=== PATIENT | female | born 1965 | race Caucasian/White ===

== ENCOUNTER 2020-12-25 13:03 | Emergency (ER) | payer OTHER, SELFPAY ==
[2020-12-25 13:23] VITALS: BP 155/81; PULSE 88; RESP 14; TEMP 36.4; O2SAT 95; BMI 22.0
[2020-12-25 13:37] VITALS: BP 128/79; PULSE 84; RESP 16; TEMP 36.6
--- NOTE | 2020-12-25 13:45 | HMH.EDUTC ---
[facility] [place] Disposition Clinical Impression: Exposure to COVID-19 virus Disposition: Home, Self-Care Condition on Discharge: Good Instructions: DI for COVID-19 (Suspected or Confirmed ), Preventing the Spread of Coronavirus Discharge Instructions Additional Instructions: Drink plenty of fluids. Take tylenol for pain or fever. Return if you begin to have difficulty breathing. Follow up with your regular doctor. GO TO THE ER FOR ANY WORSENING SYMPTOMS Referrals: Araceli Wiley [Primary Care Provider] - Time of Disposition: 13:45 Medical Decision Making - Medical Records Medical records reviewed: No: I reviewed the patient's medical records. - Adrian Inquiry Pt receiving controlled substance: No Vital Signs: 12/25/20 13:23 12/25/20 13:37 Temperature 97.6 F 97.9 F Temperature Source Tympanic Tympanic Pulse Rate 84 Pulse Rate [Right] 88 Respiratory Rate 14 16 Blood Pressure 128/79 Blood Pressure [Right Arm] 155/81 H Blood Pressure Mean [Right Arm] 105 Blood Pressure Source Automatic Cuff Blood Pressure Source [Right Arm] Automatic Cuff Blood Pressure Position Sitting Blood Pressure Position [Right Arm] Sitting 02 Sat by Pulse Oximetry 95 Oxygen Delivery Method Room Air [facility] [place] HPI - General Stated complaint: cov test Time Seen by Provider: 12/25/20 13:45 Mode of Arrival: Ambulatory Source of Information: Patient Limitations: No Limitations Description of Symptoms (Recalled from Triage Doc. by RN): pt has been traveling. asymptomatic and no known exposure. HEENT Symptoms (Recalled from RN notes): No Resp Symptoms (Recalled from RN notes): No Skin Symptoms (Recalled from RN notes): No MS Symptoms (Recalled from RN notes): No Functional Status (Recalled from RN notes): na - History of Present Illness Provider Complaint: She is here needing to be tested for covid. She denies any symptoms. She has had to travel for her work, and she has a new grand baby that she doesn't want to pack covid-19 in on. - Related Data Home Medications Medication Instructions Recorded Confirmed dapagliflozin 10 mg tablet PO 30 Days #30 tab 09/08/18 09/08/18 fluoxetine 20 mg capsule PO 30 Days #60 cap 09/08/18 09/08/18 insulin glargine 100 unit/mL (3 20 unit SQ DAILY 09/08/18 09/08/18 mL) subcutaneous pen lisinopril 20 mg tablet PO 30 Days #30 tab 09/08/18 09/08/18 Allergies Allergy/AdvReac Type Severity Reaction Status Date / Time codeine Allergy Verified 12/25/20 13:29 Sulfa (Sulfonamide Allergy Verified 12/25/20 13:29 Antibiotics) - Worker's Comp Is this a Worker's Comp case?: No [facility] History - Hepatitis A Screen Drug use history?: No High risk sexual behaviors?: No History of sexually transmitted infection?: No Currently employed?: No Childcare worker?: No Do you have indoor plumbing?: Yes Do you have electricity?: Yes Attestation statement:: This patient has been screened for Hepatitis A risk factors. I have reviewed the patient's past medical history: Yes Medical History: Reports:: Anxiety, Diabetes Mellitus Type 2, Hypertension Other Surgeries: Yes: No Previous Surgery - Social History Smoking Status: Never smoker Alcohol Intake: never Alcohol Intake Frequency:: holidays/special occasions only Occupational Status: other Housing: house Household Members: family - Psychiatric History Pschychiatric History:: Reports:: Anxiety Family Hx:: Diabetes, Hypertension ROS Obtained: Yes All systems reviewed & no additional complaints - Constitutional Constitutional: Reports system reviewed and no additional complaints, except as docu - Eyes Eyes: Reports system reviewed and no additional complaints, except as docu - ENT Ears, Nose, Mouth, and Throat: Reports system reviewed and no additional complaints, except as docu - Cardiovascular Cardiovascular: Reports system reviewed and no additional complaints, except as docu - Respiratory Respiratory: Reports system
== END 2020-12-25 13:52 | disposition home or self-care (01) ==
PROVIDERS: Emergency Provider Nurse Practitioner Family; PCP Family Medicine
DX: Z20.822 Contact with and (suspected) exposure to COVID-19 (principal); I10 Essential (primary) hypertension; E11.9 Type 2 diabetes mellitus without complications; F41.9 Anxiety disorder, unspecified; Z88.2 Allergy status to sulfonamides; Z88.5 Allergy status to narcotic agent
CPT/HCPCS: 99202; G0463; U0003

== ENCOUNTER 2022-02-02 09:35 | Emergency (ER) | payer OTHER, SELFPAY ==
[2022-02-02 09:44] VITALS: BP 155/89; PULSE 94; RESP 20; TEMP 36.8; O2SAT 100; BMI 22.8
[2022-02-02 09:50] VITALS: BP 155/89; PULSE 94; RESP 20; TEMP 36.8; O2SAT 100; BMI 22.7
--- NOTE | 2022-02-02 10:03 | HMH.EDUTC ---
[facility] [place] Clinical Impression: Bronchitis, COVID-19 virus test result unknown Disposition: Home, Self-Care Condition on Discharge: Good Instructions: COVID-19: Testing and Tracing, Acute Bronchitis Additional Instructions: Start antibiotic today. Be sure to complete entire prescription even if feeling better Tylenol and ibuprofen as needed for pain or fever Humidifier/vaporizer/hot steamy shower Follow-up with primary care tomorrow. Follow-up immediately in the ER of the [facility] for new or worsening symptoms or no noticeable improvement over the next 48-72 hours. Stop smoking Start steroids today. Helps with inflammation therefore coughing and wheezing. Follow directions on package. watch glucose close while on steroids Prescriptions: predniSONE [Prednisone 20mg Tab] 20 mg PO BID #10 tab Transmission Status: P[facility] to [facility] Azithromycin [Zithromax 250mg tab] 250 mg PO DIRECTED #6 tab Transmission Status: Pending to [facility] Referrals: Araceli Wiley [Primary Care Provider] - Time of Disposition: 10:17 Medical Decision Making - Adrian Inquiry Pt receiving controlled substance: No Vital Signs: 02/02/22 09:44 02/02/22 09:50 Temperature 98.2 F 98.2 F Temperature Source Oral Oral Pulse Rate [Left Radial] 94 H 94 H Respiratory Rate 20 20 Blood Pressure [Right Arm] 155/89 H 155/89 H Blood Pressure Mean [Right Arm] 111 111 Blood Pressure Source [Right Arm] Automatic Cuff Automatic Cuff Blood Pressure Position [Right Arm] Sitting Sitting 02 Sat by Pulse Oximetry 100 100 Oxygen Delivery Method Room Air Room Air Orders (Tests/Meds): ORDERS Category Date Time Status Covid-19 Nasal PCR ([facility]) Routine Lab 02/02/22 10:07 Ordered [facility] [place] HPI - General Chief complaint: Urgent [facility] Stated complaint: cough, congestion, sore throat, bilateral ear pain Time Seen by Provider: 02/02/22 10:03 Mode of Arrival: Ambulatory Source of Information: Patient Limitations: No Limitations Description of Symptoms (Recalled from Triage Doc. by RN): c/o cough, sore throat, fever for 48 hours. Wants a covid test - History of Present Illness Provider Complaint: 56 yr old female presnets for covid test, pt states horseness, cough, chest congestion, is coughing up sputum but has not looked at it, and sore throat since thurs - Related Data Home Medications Medication Instructions Recorded Confirmed dapagliflozin 10 mg tablet PO 30 Days #30 tab 09/08/18 09/08/18 fluoxetine 20 mg capsule PO 30 Days #60 cap 09/08/18 09/08/18 insulin glargine 100 unit/mL (3 20 unit SQ DAILY 09/08/18 09/08/18 mL) subcutaneous pen lisinopril 20 mg tablet PO 30 Days #30 tab 09/08/18 09/08/18 Previous Rx's Medication Instructions Recorded Azithromycin [Zithromax 250mg 250 mg PO DIRECTED #6 tab 02/02/22 tab] predniSONE [Prednisone 20mg 20 mg PO BID #10 tab 02/02/22 Tab] Allergies Allergy/AdvReac Type Severity Reaction Status Date / Time codeine Allergy Verified 12/25/20 13:29 Sulfa (Sulfonamide Allergy Verified 12/25/20 13:29 Antibiotics) [facility] History - Hepatitis A Screen Attestation statement:: This patient has been screened for Hepatitis A risk factors. I have reviewed the patient's past medical history: Yes Medical History: Reports:: Anxiety, Diabetes Mellitus Type 2, Hypertension Other Surgeries: Yes: No Previous Surgery - Social History Smoking Status: Never smoker Alcohol Intake: never Alcohol Intake Frequency:: holidays/special occasions only Occupational Status: other Housing: house Household Members: family - Psychiatric History Pschychiatric History:: Reports:: Anxiety Family Hx:: Diabetes, Hypertension ROS Obtained: Yes Systems reviewed as appropriate & no additional complaints - Constitutional Constitutional: Reports system reviewed and no additional complaints, except as docu, Denies fatigue, Reports fever(s) - Eyes
[2022-02-02 10:18] VITALS: BP 155/89; PULSE 94; RESP 20; TEMP 36.8; O2SAT 100
== END 2022-02-02 10:24 | disposition home or self-care (01) ==
PROVIDERS: Emergency Provider Nurse Practitioner Family; PCP Family Medicine
DX: J20.9 Acute bronchitis, unspecified (principal); I10 Essential (primary) hypertension; E11.9 Type 2 diabetes mellitus without complications; F41.9 Anxiety disorder, unspecified; Z20.822 Contact with and (suspected) exposure to COVID-19; Z79.4 Long term (current) use of insulin; Z79.52 Long term (current) use of systemic steroids; Z79.899 Other long term (current) drug therapy; Z88.2 Allergy status to sulfonamides; Z88.5 Allergy status to narcotic agent; Z82.49 Family history of ischemic heart disease and other diseases of the circulatory system
CPT/HCPCS: 99213; C9803; G0463; U0003; U0005

== ENCOUNTER 2022-05-14 09:50 | Emergency (ER) | payer OTHER, SELFPAY ==
[2022-05-14 10:05] VITALS: BP 164/99; PULSE 108; RESP 16; TEMP 36.9; O2SAT 97; BMI 27.2
--- NOTE | 2022-05-14 10:27 | HMH.EDUTC ---
[facility] [place] Disposition Clinical Impression: Otitis media Qualifiers: Otitis media type: unspecified Laterality: left Qualified Code(s): H66.92 - Otitis media, unspecified, left ear Disposition: Home, Self-Care Condition on Discharge: Good Instructions: Middle Ear Infection, DI for Otitis Externa Additional Instructions: Use Ear Drops as prescribed and take oral Antibiotics as prescribed Return if needed Straight to ER if any life threatening symptoms Follow up with your Family Doctor if no improvement or any worsening symptoms Prescriptions: Amoxicillin [Amoxicillin 500mg Cap] 500 mg PO TID #30 cap Transmission Status: Pending to [facility] Neomycin/Polymyxin B Sulf/Hc [Rkkgyawd-Pngxcjpdp-UE Otic Susp 10mL] 4 drp OT QID 7 Days #10 ml Transmission Status: Pending to [facility] Referrals: Araceli Wiley [Primary Care Provider] - As needed Time of Disposition: 10:39 Medical Decision Making - Adrian Inquiry Pt receiving controlled substance: No Adrian was queried for this patient: No Vital Signs: 05/14/22 10:05 Temperature 98.5 F Temperature Source Oral Pulse Rate [Left Brachial] 108 H Respiratory Rate 16 Blood Pressure [Left Arm] 164/99 H Blood Pressure Mean [Left Arm] 120 Blood Pressure Source [Left Arm] Automatic Cuff Blood Pressure Position [Left Arm] Sitting 02 Sat by Pulse Oximetry 97 Oxygen Delivery Method Room Air [facility] [place] HPI - General Stated complaint: ear pain Time Seen by Provider: 05/14/22 10:27 Mode of Arrival: Ambulatory Source of Information: Patient Limitations: No Limitations Description of Symptoms (Recalled from Triage Doc. by RN): PATIENT C/O SEVERE LEFT EAR ACHE HEENT Symptoms (Recalled from RN notes): Yes Resp Symptoms (Recalled from RN notes): No Skin Symptoms (Recalled from RN notes): No MS Symptoms (Recalled from RN notes): No Functional Status (Recalled from RN notes): WNL - History of Present Illness Provider Complaint: Patient states that she has been having severe pain in her left ear for about 2 days States it has continued to get worse States that she tried over the counter ear drops but they didnt help so today she came in trying to get something to help - Related Data Home Medications Medication Instructions Recorded Confirmed dapagliflozin 10 mg tablet PO 30 Days #30 tab 09/08/18 09/08/18 fluoxetine 20 mg capsule PO 30 Days #60 cap 10/24/18 10/24/18 insulin glargine 100 unit/mL (3 20 unit SQ DAILY 09/08/18 09/08/18 mL) subcutaneous pen lisinopril 20 mg tablet PO 30 Days #30 tab 09/08/18 09/08/18 Previous Rx's Medication Instructions Recorded Azithromycin [Zithromax 250mg 250 mg PO DIRECTED #6 tab 02/02/22 tab] predniSONE [Prednisone 20mg 20 mg PO BID #10 tab 02/02/22 Tab] Amoxicillin [Amoxicillin 500mg 500 mg PO TID #30 cap 05/14/22 Cap] Neomycin/Polymyxin B Sulf/Hc 4 drp OT QID 7 Days #10 ml 05/14/22 [Dtdqkskx-Izuqpwdal-PF Otic Susp 10mL] Allergies Allergy/AdvReac Type Severity Reaction Status Date / Time codeine Allergy Verified 12/25/20 13:29 Sulfa (Sulfonamide Allergy Verified 12/25/20 13:29 Antibiotics) - Worker's Comp Is this a Worker's Comp case?: No [facility] History - Hepatitis A Screen Attestation statement:: This patient has been screened for Hepatitis A risk factors. I have reviewed the patient's past medical history: Yes Medical History: Reports:: Anxiety, Diabetes Mellitus Type 2, Hypertension Other Surgeries: Yes: No Previous Surgery - Social History Smoking Status: Never smoker Alcohol Intake: never Alcohol Intake Frequency:: holidays/special occasions only Occupational Status: other Housing: house Household Members: family - Psychiatric History Pschychiatric History:: Reports:: Anxiety Family Hx:: Diabetes, Hypertension ROS Obtained: Yes All systems reviewed & no additional complaints, Yes Systems reviewed as appropriate & no additional complaints - Co
[2022-05-14 10:47] VITALS: BP 164/99; PULSE 108; RESP 16; TEMP 36.9; O2SAT 97
== END 2022-05-14 10:50 | disposition home or self-care (01) ==
PROVIDERS: Emergency Provider Nurse Practitioner; PCP Family Medicine
DX: H66.92 Otitis media, unspecified, left ear (principal)
CPT/HCPCS: 99212; G0463

== ENCOUNTER 2022-08-07 09:37 | Emergency (ER) | payer OTHER, SELFPAY ==
--- NOTE | 2022-08-07 09:47 | XR_ITS ---
FINAL REPORT CLINICAL HISTORY: FALL and right lateral foot/ankle pain, and swelling FINDINGS: 3 views of the right foot were obtained. There is no acute fracture or dislocation. The joint spaces are intact. The soft tissues are unremarkable. IMPRESSION: No acute process. Reviewed, Interpreted and Dictated by Ryan Cadena MD Transcribed by Jeferson Mathew Authenticated and [facility]
[2022-08-07 09:48] VITALS: BP 210/102; PULSE 102; RESP 18; TEMP 36.8; O2SAT 98; BMI 21.2
--- NOTE | 2022-08-07 09:48 | XR_ITS ---
FINAL REPORT CLINICAL HISTORY: FALL and right lateral foot/ankle pain, swelling FINDINGS: RIGHT ANKLE: Three views of the right ankle were obtained. There is no acute fracture or dislocation. The joint spaces and mortise are intact. There is mild soft tissue swelling about the ankle. IMPRESSION: Swelling with no acute osseous abnormality. Reviewed, Interpreted and Dictated by Ryan Cadena MD Transcribed by Jeferson Mathew Authenticated and [facility]
[2022-08-07 10:35] VITALS: BP 227/94; PULSE 102; RESP 18; TEMP 36.8; O2SAT 98; BMI 21.2
--- NOTE | 2022-08-07 11:32 | EXP.UTC ---
Discharge Plan Disposition Patient Disposition: Home, Self-Care Condition: Good Prescriptions Prescriptions: No Action lisinopril 20 mg tablet PO 30 Days Qty: 30 Lantus Solostar U-100 Insulin 100 unit/mL (3 mL) insulin pen 20 unit SQ DAILY dapagliflozin 10 mg tablet PO 30 Days Qty: 30 fluoxetine 20 mg capsule PO 30 Days Qty: 60 azithromycin 250 MG tablet 250 mg PO DIRECTED Qty: 6 0RF Rx Instructions: Take two (2) tablets on day #1, then one (1) tablet day #2 thru #5 prednisone 20 MG tablet 20 mg PO BID Qty: 10 0RF amoxicillin 500 MG capsule 500 mg PO TID Qty: 30 0RF llqnbekp-fqbzkqwnx-ZC 10 ML bottle 4 drp OT QID 7 Days Qty: 10 0RF Referrals Follow up/Referrals: Araceli Wiley [Primary Care Provider] - See instructions Activity Restrictions/Add. Instructions Additional Instructions/Restrictions: *weight bearing as tolerated *RICE, Rest the extremity, Ice 15-20 minutes 3-4 times daily, Compress- wear the chris wrap as discussed as much as possible to help reduce swelling and pain, Elevate the extremity when at rest *walking boot is for support and help control swelling, use it except in the shower. Be sure that is not to tight but not to loose either *Elevate when resting? *Ibuprofen 600-800mg every 6-8 hours as needed for pain an inflammation. If need something more can take Tylenol in between doses of Ibuprofen to help Immediately follow up with your family doctor for new or worsening of symptoms, or no noticeable improvement over the next 3-5 days Clinical Impressions Clinical Impression: Ankle sprain Discharge ED Provider: Cayla Dotson [facility] General Stated complaint: [id number] right foot and ankle pain, home acc Mode of Arrival: Ambulatory Source of Information: Patient Limitations: No Limitations Time Seen by Provider: 08/07/22 11:32 Description of Symptoms (Recalled from Triage Doc. by RN): PATIENT C/O INJURY TO RIGHT FOOT/ANKLE. SHE REPORTS SHE STEPPED OFF OF THE EDGE OF SIDEWALK AT A [employer] LAST NIGHT AND TWISTED IT. HEENT Symptoms (Recalled from RN notes): No Resp Symptoms (Recalled from RN notes): No Skin Symptoms (Recalled from RN notes): No MS Symptoms (Recalled from RN notes): Yes Functional Status (Recalled from RN notes): WNL History of Present Illness Provider Complaint: Patient states that she was stepping off edge of side walk and rolled her right ankle States that she felt something pop States that she has been having pain with walking ever since States that her blood pressure is up because she didnt get to roller picker her medication yesterday from the pharmacy but plans to go get it when she leaves here today Related Data Home Medications Medication Instructions Recorded Confirmed dapagliflozin 10 mg tablet PO 30 days #30 tabs 09/08/18 09/08/18 fluoxetine 20 mg capsule PO 30 days #60 caps 09/08/18 09/08/18 insulin glargine 100 unit/mL (3 20 unit SQ DAILY 09/08/18 09/08/18 mL) subcutaneous pen (Lantus Solostar U-100 Insulin) lisinopril 20 mg tablet PO 30 days #30 tabs 09/08/18 09/08/18 Previous Rx's Medication Instructions Recorded azithromycin 250 mg tablet 250 mg PO DIRECTED #6 tabs 02/02/22 prednisone 20 mg tablet 20 mg PO BID #10 tabs 02/02/22 amoxicillin 500 mg capsule 500 mg PO TID #30 caps 05/14/22 hjjacimo-xjiznpavd-oxkghfpgm 3.5 4 drp otic (ear) QID 7 days #10 mL 05/14/22 mg-10,000 unit/mL-1 % ear drops,susp Allergies Allergy/AdvReac Type Severity Reaction Status Date / Time codeine Allergy Verified 12/25/20 13:29 Sulfa (Sulfonamide Allergy Verified 12/25/20 13:29 Antibiotics) Worker's Comp Is this a Worker's Comp case?: No PFSH PFS Medical History (Updated 08/07/22 @ 11:42 by Cayla Dotson APRN) Anxiety Diabetes mellitus, type 2 Hypertension Surgical History (Updated 08/07/22 @ 10:46 by Caterina Parada RN) History of abdominoplasty History o
[2022-08-07 11:34] VITALS: BP 189/98; PULSE 102; RESP 18; TEMP 36.8; O2SAT 98
== END 2022-08-07 11:52 | disposition home or self-care (01) ==
PROVIDERS: Emergency Provider Nurse Practitioner; PCP Family Medicine
DX: W10.1XXA Fall (on)(from) sidewalk curb, initial encounter (principal); S93.401A Sprain of unspecified ligament of right ankle, initial encounter; F41.9 Anxiety disorder, unspecified; E11.9 Type 2 diabetes mellitus without complications; I10 Essential (primary) hypertension
CPT/HCPCS: 73610; 73630; 99213; G0463

== ENCOUNTER 2025-09-13 23:53 | Inpatient (IN) | payer OTHER, SELFPAY ==
--- OUTSIDE RECORDS SUMMARY | 2025-07-26 17:49 | XMS_ITS | Encounter Summary ---
Author Organization [facility] Address [address] [place] [address] Care Team Providers Care Chief Fishery Division Name Role Phone Araceli Doyle MD Primary Care Provider [phone] Reason for Referral * Consultation (Routine) - Authorized Specialty Diagnoses / Procedures Referred By Contac t Referred To Contact Neurology Diagnoses Syncope and collapse Transient ischemic attack (TIA) Procedures AL OFFICE/OUTPATIENT NEW MODERATE MDM 45 MINUTES Michelle Moon MD [address] [facility] 4th [place] [address] Phone: tel: fax: [facility] [address] [facility] [address] [place] [address] Phone: tel: fax: Referral ID Status Reason Start Date Expiration Date Visits Requested Visits Authorized [id number] Authorized Specialty Services Required 07/27/2025 10/26/2026 1 1 Reason for Visit * Reason Comments Syncope * Auth/Cert (Routine) Specialty Diagnoses / Procedures Referred By Contac t Referred To Contact Diagnoses Facial droop Referral ID Status Reason Start Date Expiration Date Visits Re quested Visits Authorized [id number] 1 1 Encounter Details Date Type Department Care Team (Late st Contact Info) Description 07/26/2025 5:49 PM EDT - 07/27/2025 2:28 PM EDT Hospital Encounter [address] [facility] [place] [id number] Heron Whatley DO [address] [facility] [place] [address] Michael Cano MD [address] [facility] [address]th [place] [address] Shereen Miguel MD [address] [facility] [address] [place] [id number] Michelle Moon MD [address] [facility] 4th [address] [place], [place] [id number] Syncope and collapse (Primary Dx); Fall down stairs, initial encounter; Stenosis of both internal carotid arteries; Hyperglycemia; Ketonuria; Renal insufficiency; Elevated troponin; Transient ischemic attack (TIA) Discharge Disposition: Home or Self Care Social History Tobacco Use Types Packs/Day Years Used Date Smoking Tobacco: Never Passive Smoke Exposure: Past Smokeless Tobacco: Never Alcohol Use Standard Drinks/Week Comments Never 0 (1 standard drink = 0.6 oz pur e alcohol) [facility] Utilities Answer Date Recorded In the past 12 months has [place], gas, oil, or water [employer] threatened to shut off services in your home? No 07/27/2025 AUDIT-C Answer Date Recorded Q1: How often do you have a drink containing alcohol? Never 07/27/2025 Q2: How many drinks containi ng alcohol do you have on a typical day when you are drinking? Patient does not drink Q3: How often do you have si x or more drinks on one occasion? Never 07/27/2025 Exercise Vital Sign Answer Date Recorde d Days of Exercise per Week Not on file 2024 On average, how many minutes do you engage in exercise at this level? 0 min 07/27/2025 Hunger Vital Sign Answer Date Recorded Within the past 12 months, y ou worried that your food would run out before you got the money to buy more. Never true 07/27/20 25 Within the past 12 months, t he food you bought just didn't last and you didn't have money to get more. Never true 07/27/2025 PRAPARE - Transportation Answer Date Re corded In the past 12 months, has l ack of transportation kept you from medical appointments or from getting medications? No 07/17 In the past 12 months, has l ack of transportation kept you from meetings, work, or from getting things needed for daily living? No 07/27/2025 Abuse Screen Answer Date Recorded Feels Unsafe at Home or Work/School no 07/26/2025 Feels Threatened by Someone no 07/17 Does Anyone Try to Keep You From Having Contact with Others or Doing Things Outside Your Home? no 07/26/2025 Physical Signs of Abuse Present no 07/26/2025 Housing Stability Answer Date Recorded Current Living Arrangements home 07/17 Potentially Unsafe Housing Conditions none 07/27/2025 Family and Community Support Answer Zechariah e Recorded If for any reason you need h elp with day-to-day activities such as bathing, preparing meals, shopping, managing finances, etc., do you get the help you need? I get all the help I need 07/27/2025 Lonely or Isolated Not on file 07/27/2025 Employment Answer Date Recorded Do you want help finding or keeping work or a job? I do not need or want help 07/27/2025 Disabilities Answer Date Recorded Difficulty Concentrating, Remembering or Making Decisions no 07/27/2025 Difficulty Managing Errands Independently no 07/27/2025 Education Answer Date Recorded Do you want help with school or training? For example, starting or completing job training or getting a high school diploma, GED or equivalent No 07/27/2025 Preferred Language Syrian 07/27/2025 Comments Unknown Sex and Gender Information Value Date Recorded Sex Assigned at Not on file Legal Sex Female 10:07 AM EDT Gender Identity Not on file Sexual Orientation Not on file documented as of this encounter Last Filed Vital Signs Vital Sign Reading Time Taken Comments Blood Pressure 133/82 07/27/2025 11:29 AM EDT Pulse 100 07/27/2025 11:29 AM EDT Temperature 36.7 C (98.1 F) 07/27/2025 11:29 AM EDT Respiratory Rate 16 07/27/2025 11:29 AM EDT Oxygen Saturation 99% 07/27/2025 11:29 AM EDT Inhaled Oxygen Concentration - - Weight 76.2 kg (168 lb) 07/27/2025 10:48 AM EDT Height 167.6 cm (5' 6 ) 07/27/2025 10:48 AM EDT Body Mass Index 27.12 07/27/2025 10:48 AM EDT documented in this encounter Functional Status * Question Answer Date of Assessment Author 1. Wish to be (Past 1 Month) No 025 11:35 PM EDT Gage Cox RN 2. Non-Specific Active Suici susi Thoughts (Past 1 Month) No 07/26/2025 11:35 PM EDT Jessica Cox RN * Calculated C-SSRS Risk Score (Lifetime/Recent) Answer Date of Assessment Author No Risk Indicated 07/26/2025 11:35 PM EDT Gage Cox RN * [place] Suicide Severity Rating Scale (Screener/Recent Self-Report) Question Answer Date of Assessment Author 6. Suicidal Behavior (Lifetime) No 11:35 PM EDT Gage Cox RN documented as of this encounter Discharge Summaries * Michelle Moon MD - 07/27/2025 2:28 PM EDT Images from the original note were not included. [facility] Medicine Services DISCHARGE SUMMARY Patient Name: Brynn Cox : 1965 Date of Admission: 07/26/2025 5:49 PM Date of Discharge: 07/27/2025 Primary Care Physician: Araceli Doyle MD Consults No orders found for last 30 day(s). Hospital Course Presenting Problem: TIA Active Hospital Problems Diagnosis POA Facial droop [R29.810] Yes Transient ischemic attack (TIA) [G45.9] Yes Resolved Hospital Problems No resolved problems to display. Hospital Course: Brynn Cox is a 60 y.o. female with HTN, HLD, DM-II who was admitted after episode of transient impaired awareness, expressive aphasia, right sided facial droop noted by EMS, and global weakness. CT head negative for acute findings. CTA with left supraclinoid ICA occlusion but with collateral flow. MRI brain did not show acute infarct. Neurology consulted, episode was concerning for TIA. Patient is started on DAPT which she is to continue for 90 days. Bilateral carotid ultrasound without significant stenosis. TTE notable for hypertrophic changes, no evidence of shunt. No evidence of Afibon telemetry. 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 Patient discharged in stable condition. Counseled to avoid driving for 30 days. Discharge Follow Up Recommendations for outpatient labs/diagnostics: - follow up with neurology in 4-6wks - follow up with PCP regarding transaminitis in the setting of known fatty liver disease Day of Discharge HPI: Pt is feeling back to baseline. She denies focal weakness, dysarthria or dysphagia. Review of Systems Negative except as noted above. Vital Signs: Temp: [97.9 ??F (36.6 ??C)-98.1 ??F (36.7 ??C)] 98.1 ??F (36.7 ??C) Heart Rate: [93-122] 100 Resp: [16-20] 16 BP: (118-203)/(54-136) 133/82 Physical Exam: Physical Exam Constitutional: General: She is not in acute distress. Appearance: Normal appearance. HENT: Head: Normocephalic and atraumatic. Eyes: General: No scleral icterus. Extraocular Movements: Extraocular movements intact. Cardiovascular: Rate and Rhythm: Normal rate and regular rhythm. Heart sounds: No murmur heard. Pulmonary: Effort: Pulmonary effort is normal. Breath sounds: Normal breath sounds. Abdominal: Palpations: Abdomen is soft. Tenderness: There is no abdominal tenderness. Musculoskeletal: Right lower leg: No edema. Left lower leg: No edema. Neurological: Mental Status: She is alert and oriented to person, place, and time. Cranial Nerves: No cranial nerve deficit. Motor: No weakness. Pertinent and/or Most Recent Results LAB RESULTS: Lab 07/27/25 0902 07/26/25 1813 WBC 11.73* 7.98 HEMOGLOBIN 11.9* 12.2 HEMATOCRIT 37.3 36.2 PLATELETS 193 218 NEUTROS ABS 8.97* 5.47 IMMATURE GRANS (ABS) 0.05 0.04 LYMPHS ABS 1.70 2.01 MONOS ABS 0.99* 0.45 EOS ABS 0.00 0.00 MCV 99.5* 91.0 Lab 07/27/25 0902 07/26/25200507/26/25 1813 SODIUM 138 -- 136 POTASSIUM 3.8 -- 4.2 CHLORIDE 104 -- 100 CO2 20.1* -- 25.0 ANION GAP 13.9 -- 11.0 BUN 17.2 -- 21.8 CREATININE 0.88 -- 1.02* EGFR 74.4 -- 62.3 GLUCOSE 78 -- 236* CALCIUM 8.7 -- 9.2 MAGNESIUM -- -- 2.2 HEMOGLOBIN A1C 6.91* -- -- TSH -- 2.090 -- Lab 07/27/2590107/26/25 1813 TOTAL PROTEIN 6.1 6.8 ALBUMIN 3.5 4.2 GLOBULIN 2.6 2.6 ALT (SGPT) 237* 133* AST (SGOT) 127* 74* BILIRUBIN 0.8 0.4 ALK PHOS 123* 157* Lab 07/27/25 0907/26/25200507/26/25 1813 HSTROP T 27* 20* 20* Lab 07/27/25 09 CHOLESTEROL 133 LDL CHOL 82 HDL CHOL 30* TRIGLYCERIDES 114 Brief Urine Lab Results (Last result in the past 365 days) Color Clarity Blood Leuk Est Nitrite Protein CREAT Urine HCG 07/26/25 1827 Dark Yellow Clear Negative Small (1+) Negative >=300 mg/dL (3+) Microbiology Results (last 10 days) No results found for the last 240 hours. Duplex Carotid Ultrasound CAR Result Date: 07/27/2025 Right internal carotid artery demonstrates normal flow without evidence of hemodynamically significant stenosis. Antegrade right vertebral flow. Left internal carotid artery demonstrates normal flow without evidence of hemodynamically significant stenosis. Antegrade left vertebral flow. MRI Brain Without Contrast Result Date: 07/26/2025 MRI BRAIN WO CONTRAST Date of Exam: 07/26/2025 10:34 PM EDT Indication: rfd, speech difficulty. Comparison: 07/26/2025. Technique: Routine multiplanar/multisequence sequence images of the brain were obtained without contrast administration. Findings: Small patchy areas of diffusion restriction are seen within the subcortical white matter of the left frontal and parietal lobes. There is very minimalif any corresponding decreased signal on the ADC map. Patchy areas of FLAIR signal changes are seencorresponding to these regions. No additional FLAIR signal changes identified. No additional diffusion signal abnormalities identified. There is no evidence of acute or chronic intracranial hemorrhage. No mass effect or midline shift. No abnormal extra- axial collections. The major vascular flow voids appear intact. The basal ganglia, brainstem and cerebellum appear within normal limits. Calvarialand superficial soft tissue signal is within normal limits. Orbits appear unremarkable. The paranasal sinuses and the mastoid air cells appear well aerated. Midline structures are intact. Impression: Small patchy areas of diffusion restriction seen within the subcortical white matter ofthe left frontal and parietal lobes with very minimal if any corresponding decreased signal on the ADC map. Findings likely related to subacute infarcts or the sequela of previous infarcts. No evidence of hemorrhage, mass effect or midline shift. Electronically Signed: Lucila Elliott MD 07/26/2025 11:08 PM EDT Workstation ID: [id number] CT CEREBRAL PERFUSION WITH & WITHOUT CONTRAST Result Date: 07/26/2025 CT CEREBRAL PERFUSION W WO CONTRAST Date of Exam: 07/26/2025 8:37 PM EDT Indication: rfd, speech difficulties. Comparison: None available. Technique: Axial CT images of the brain were obtained prior to and after the administration of iodinated contrast. Core blood volume, core blood flow, mean transit time, and Tmax images were obtained utilizing the Rapid software protocol. A limited CT angiogramof the head was also performed to measure the blood vessel density. The radiation dose reduction device was turned on for each scan per the ALARA (As Low as Reasonably Achievable) protocol. Findings:There is an area of elevated Tmax greater than 6 seconds within the left MCA territory white matter extending to the parietal cortex consistent with an area of ischemic brain at risk. No decrease in cerebral blood flow to suggest core infarction. CBF<30% volume: 0mL Tmax>6sec volume: 22 mL Mismatch volume: 22 mL Mismatch ratio: Infinite 1. Area of suggested ischemic brain at risk involving the left MCA territory without core infarction. Electronically Signed: Saturnino Macdonald MD 07/26/2025 9:07 PM EDT Workstation ID: [id number] Result Date: 07/26/2025 CT ANGIOGRAM HEAD, CT ANGIOGRAM NECK Date of Exam: 07/26/2025 7:11 PM EDT Indication: facial droop, speech disturbance, syncope. Comparison: None available. Technique: CTA of the head was performed after the uneventful intravenous administration of iodinated contrast. Reconstructed coronal and sagittal images were also obtained. In addition, a 3-D volume rendered image was created for interpretation. Automated exposure control and iterative reconstruction methods were used. Findings: Aortic arch: The aortic arch is unremarkable. There is conventional 3 vessel arch anatomy. The right brachioceph alic and visualized bilateral subclavian arteries are within normal limits. Right carotid: The right CCA arises as expected from the brachiocephalic trunk. The CCA follows a normal course and appearsnormal caliber. Very small calcified plaque is visualized in the right carotid bifurcation without evidence of luminal narrowing. The external carotid artery and distal branches appear within normal limits. The cervical internal carotid artery follows a normal course and appears normal caliber throughout the neck and into the head. Calcified plaque in the supraclinoid right internal carotid artery causes high-grade stenosis. There are additional calcified plaques proximally in the cavernous segment causing mild to moderate stenosis. The ophthalmic artery origin is normal. The A1 and M1 segments appear within normal limits. The visualized distal JERMAINE and MCA branches appear patent. There is apatent anterior communicating artery. Right posterior communicating artery is not visualized. Left carotid: The left CCA arises as expected from the aortic arch. The CCA follows a normal course and appears normal caliber. The carotid bifurcation is unremarkable. The external carotid artery and distal branches appear within normal limits. The cervical internal carotid artery follows a normal course and appears normal caliber throughout the neck and into the head. Extensive mixed density plaque is visualized in the cavernous and supraclinoid left internal carotid artery. There is occlusion of the supraclinoid left internal carotid artery and minimal opacification of the cavernous and petrous segments. Origin of the left ophthalmic artery is not visualized. The A1 and M1 segments appear within normal limits. The visualized distal JERMAINE and MCA branches appear patent. Left posterior communicating artery is not visualized. Posterior circulation: Vertebral arteries arise as expected from ipsilateral subclavian arteries. The vertebral arteries are codominant. The vertebral arteries follow a normal course and appear normal caliber throughout the neck and into the head. The V4 segments are patent. Visualized posterior inferior cerebellar arteries are within normal limits. The basilar artery is normal caliber. Superior cerebellar arteries are patent. Bilateral P1 segments and posterior cerebral arteries appear within normal limits. Nonvascular findings: Intracranial structures appear unr emarkable. Orbits are within normal limits. Paranasal sinuses and mastoid air cells appear well aerated. Superficial soft tissues and underlying musculature appear within normal limits. The lung apices are clear. The thyroid and salivary glands appear unremarkable. The suprahyoid and infrahyoid spaces of the neck appear unremarkable. There is no evidence of cervical lymphadenopathy or a neck mass. There are no acute osseous abnormalities or destructive bone lesions. Moderate degenerative disease at C5-C6 and C6-C7 is visualized. Impression: 1.Occlusion of the supraclinoid left internal carotid artery with minimal opacificationof the cavernous and petrous segments. Left anterior cerebral and middle cerebral arteries are supplied by a patent anterior communicating artery. 2.High-grade stenosis of the supraclinoid right internal carotid artery. 3.No evidence of intracranial aneurysm. Electronically Signed: Guille Miller MD 07/26/2025 7:59 PM EDT Workstation ID: [id number] CT Angiogram Neck Result Date: 07/26/2025 CT ANGIOGRAM HEAD, CT ANGIOGRAM NECK Date of Exam: 07/26/2025 7:11 PM EDT Indication: facial droop, speech disturbance, syncope. Comparison: None available. Technique: CTA of the head was performed after the uneventful intravenous administration of iodinated contrast. Reconstructed coronal and sagittal images were also obtained. In addition, a 3-D volume rendered image was created for interpretation. Automated exposure control and iterative reconstruction methods were used. Findings: Aortic arch: The aortic arch is unremarkable. There is conventional 3 vessel arch anatomy. The right brachioceph alic and visualized bilateral subclavian arteries are within normal limits. Right carotid: The right CCA arises as expected from the brachiocephalic trunk. The CCA follows a normal course and appearsnormal caliber. Very small calcified plaque is visualized in the right carotid bifurcation without evidence of luminal narrowing. The external carotid artery and distal branches appear within normal limits. The cervical internal carotid artery follows a normal course and appears normal caliber throughout the neck and into the head. Calcified plaque in the supraclinoid right internal carotid artery causes high-grade stenosis. There are additional calcified plaques proximally in the cavernous segment causing mild to moderate stenosis. The ophthalmic artery origin is normal. The A1 and M1 segments appear within normal limits. The visualized distal JERMAINE and MCA branches appear patent. There is apatent anterior communicating artery. Right posterior communicating artery is not visualized. Left carotid: The left CCA arises as expected from the aortic arch. The CCA follows a normal course and appears normal caliber. The carotid bifurcation is unremarkable. The external carotid artery and distal branches appear within normal limits. The cervical internal carotid artery follows a normal course and appears normal caliber throughout the neck and into the head. Extensive mixed density plaque is visualized in the cavernous and supraclinoid left internal carotid artery. There is occlusion of the supraclinoid left internal carotid artery and minimal opacification of the cavernous and petrous segments. Origin of the left ophthalmic artery is not visualized. The A1 and M1 segments appear within normal limits. The visualized distal JERMAINE and MCA branches appear patent. Left posterior communicating artery is not visualized. Posterior circulation: Vertebral arteries arise as expected from ipsilateral subclavian arteries. The vertebral arteries are codominant. The vertebral arteries follow a normal course and appear normal caliber throughout the neck and into the head. The V4 segments are patent. Visualized posterior inferior cerebellar arteries are within normal limits. The basilar artery is normal caliber. Superior cerebellar arteries are patent. Bilateral P1 segments and posterior cerebral arteries appear within normal limits. Nonvascular findings: Intracranial structures appear unr emarkable. Orbits are within normal limits. Paranasal sinuses and mastoid air cells appear well aerated. Superficial soft tissues and underlying musculature appear within normal limits. The lung apices are clear. The thyroid and salivary glands appear unremarkable. The suprahyoid and infrahyoid spaces of the neck appear unremarkable. There is no evidence of cervical lymphadenopathy or a neck mass. There are no acute osseous abnormalities or destructive bone lesions. Moderate degenerative disease at C5-C6 and C6-C7 is visualized. Impression: 1.Occlusion of the supraclinoid left internal carotid artery with minimal opacificationof the cavernous and petrous segments. Left anterior cerebral and middle cerebral arteries are supplied by a patent anterior communicating artery. 2.High-grade stenosis of the supraclinoid right internal carotid artery. 3.No evidence of intracranial aneurysm. Electronically Signed: Guille Miller MD 07/26/2025 7:59 PM EDT Workstation ID: [id number] CT Head Without Contrast Result Date: 07/26/2025 CT HEAD WO CONTRAST Date of Exam: 07/26/2025 7:11 PM EDT Indication: Fall, head injury. Comparison: None available. Technique: Axial CT images were obtained of the head without contrast administration. Automated exposure control and iterative construction methods were used. Findings: There is no evidence of acute territorial infarction. There is no acute intracranial hemorrhage. There are no extra-axial collections. Ventricles and CSF spaces are symmetric. No mass effect nor hydrocephalus. Brainparenchyma appears normal for age. Paranasal sinuses and mastoid air cells are adequately aerated. Osseous structures and orbits appear intact. Impression: No acute intracranial findings. Electronically Signed: Saturnino Macdonald MD 07/26/2025 7:48 PM EDT Workstation ID: [id number] Results for orders placed during the hospital encounter of 07/26/25 Duplex Carotid Ultrasound CAR 07/27/2025 12:13 PM Interpretation Summary Right internal carotid artery demonstrates normal flow without evidence of hemodynamically significant stenosis. Antegrade right vertebral flow. Left internal carotid artery demonstrates normal flow without evidence of hemodynamically significant stenosis. Antegrade left vertebral flow. Results for orders placed during the hospital encounter of 07/26/25 Duplex Carotid Ultrasound CAR 07/27/2025 12:13 PM Interpretation Summary Right internal carotid artery demonstrates normal flow without evidence of hemodynamically significant stenosis. Antegrade right vertebral flow. Left internal carotid artery demonstrates normal flow without evidence of hemodynamically significant stenosis. Antegrade left vertebral flow. Results for orders placed during the hospital encounter of 07/26/25 Adult Transthoracic Echo Complete W/ Cont if Necessary Per Protocol (With Agitated Saline) 07/27/2025 12:17 PM Interpretation Summary Left ventricular ejection fraction appears to be 56 - 60%. Left ventricular wall thickness is consistent with hypertrophy. Saline test results are negative. I have personally reviewed the therapy plans: [x] PT/OT/ ST Therapy Plans Plan for Follow-up of Pending Labs/Results: Discharge Details Discharge Medications New Medications Instructions Start Date aspirin 81 MG chewable tablet 81 mg, Oral, Daily Start Date: July 28, 2025 clopidogrel 75 MG tablet Commonly known as: PLAVIX 75 mg, Oral, Daily Start Date: July 28, 2025 Changes to Medications Instructions Start Date BASAGLAR KWIKPEN 100 UNIT/ML injection pen What changed: how much to take additional instructions 48 Units, Subcutaneous, Daily carvedilol 25 MG tablet Commonly known as: COREG What changed: additional instructions 1 tablet, Every 12 Hours Scheduled Continue These Medications Instructions Start Date atorvastatin 80 MG tablet Commonly known as: LIPITOR 1 tablet, Daily estradiol 10 MCG tablet vaginal tablet Commonly known as: VAGIFEM 1 tablet, 2 Times Weekly FreeStyle Jovita 3 Plus Sensor Use as directed every 15 days FreeStyle Jovita 3 Sensor misc 1 each, Subcutaneous, Every 14 Days lisinopril 10 MG tablet Commonly known as: PRINIVIL,ZESTRIL 1 tablet, Daily Mounjaro 7.5 MG/0.5ML solution auto-injector Generic drug: Tirzepatide 7.5 mg, Subcutaneous, Weekly venlafaxine XR 75 MG 24 hr capsule Commonly known as: EFFEXOR-XR 75 mg, Daily Allergies Allergen Reactions Codeine GI Intolerance Vomiting Sulfa Antibiotics GI Intolerance vomiting Discharge Disposition: Home or Self Care Diet: Hospital: Diet Order Procedures Diet: Cardiac, Diabetic; Healthy Heart (2-3 Na+); Consistent Carbohydrate; Fluid Consistency: Thin (IDDSI 0) Standing Status: Standing Number of Occurrences: 1 Diets:: Cardiac Diets:: Diabetic Cardiac Diet:: Healthy Heart (2-3 Na+) Diabetic Diet:: Consistent Carbohydrate Fluid Consistency:: Thin (IDDSI 0) Activity: As tolerated Restrictions or Other Recommendations: No driving for 30 days CODE STATUS: Code Status and Medical Interventions: CPR (Attempt to Resuscitate); Full Support Ordered at: 07/27/25 0024 Code Status (Patient has no pulse and is not breathing): CPR (Attempt to Resuscitate) Medical Interventions (Patient has pulse or is breathing): Full Support Level Of Support Discussed With: Patient Future Appointments Date Time Provider Department Center 08/22/2025 8:15 AM Katrina Garrett MD [facility] 09/05/2025 11:30 AM [facility] Additional Instructions for the Follow-ups that You Need to Schedule Ambulatory Referral to Neurology As directed Michelle Moon MD 07/27/25 Time Spent on Discharge: I spent 35 minutes on this discharge activity which included: [id number] with the patient, reviewing the data in the system, coordination of the care with the nursing staff as well as consultants, documentation, and entering orders. * Radha Fitch PT - 07/27/2025 9:10 AM EDT Images from the original note were not included. Patient Name: Brynn Cox : 1965 Today's Date: 07/27/2025 Admit Date: 07/26/2025 Visit Dx: ICD-10-CM ICD-9-CM 1. Syncope and collapse R55 780.2 2. Fall down stairs, initial encounter W10.8XXA E880.9 3. Stenosis of both internal carotid arteries I65.23 433.10 433.30 4. Hyperglycemia R73.9 790.29 5. Ketonuria R82.4 791.6 6. Renal insufficiency N28.9 593.9 7. Elevated troponin R79.89 790.6 Patient Active Problem List Diagnosis Diabetes type 2, uncontrolled Type 2 diabetes mellitus with hyperlipidemia Breast implant rupture Breast implant status Calculus of gallbladder without cholecystitis without obstruction Elevated LFTs Episode of recurrent major depressive disorder Essential hypertension Menopausal hot flushes Microalbuminuric diabetic nephropathy Mixed hyperlipidemia Toenail fungus Type 2 diabetes mellitus with hyperglycemia Vitamin D deficiency Insomnia Hypersomnia Fatigue Family history of early CAD Facial droop Past Medical History: Diagnosis Date Otitis media 04/20/2024 Past Surgical History: Procedure Laterality Date BREAST AUGMENTATION CHOLECYSTECTOMY TUBAL ABDOMINAL LIGATION General Information Row Name 07/27/2542 Physical Therapy Time and Intention Document Type discharge evaluation/summary -KR Mode of Treatment physical therapy;co-treatment -KR Row Name 07/27/25941 General Information Patient Profile Reviewed yes -KR Prior Level of Function independent:;all household mobility;community mobility;ADL's;driving;work;using stairs -KR Existing Precautions/Restrictions no known precautions/restrictions -KR Barriers to Rehab none identified -KR Row Name 07/27/25941 Living Environment Current Living Arrangements home -KR People in Home spouse -KR Row Name 07/27/25941 Home Main Entrance Number of Stairs, Main Entrance three -KR Stair Railings, Main Entrance railing on right side (ascending) -KR Row Name 07/27/25941 Stairs Within Home, Primary Number of Stairs, Within Home, Primary none -KR Row Name 07/27/25941 Cognition Orientation Status (Cognition) oriented x 4 -KR User Diane (r) = Recorded By, (t) = Taken By, (c) = Cosigned By Initials Name Provider Type Radha Zuluaga PT Physical Therapist Mobility Row Name 07/27/25942 Sit-Stand Transfer Sit-Stand Barnum (Transfers) independent -KR Row Name 07/27/25942 Gait/Stairs (Locomotion) Barnum Level (Gait) independent -KR Distance in Feet (Gait) 240 -KR Barnum Level (Stairs) supervision -KR Handrail Location (Stairs) none -KR Number of Steps (Stairs) 3 -KR Ascending Technique (Stairs) [id number] -KR Descending Technique (Stairs) [id number] -KR User Diane (r) = Recorded By, (t) = Taken By, (c) = Cosigned By Initials Name Provider Type Radha Zuluaga PT Physical Therapist Obj/Interventions Row Name 07/27/25942 Range of Motion Comprehensive General Range of Motion no range of motion deficits identified -KR Row Name 07/27/25942 Strength Comprehensive (MMT) General Manual Muscle Testing (MMT) Assessment no strength deficits identified -KR Row Name 07/27/25942 Balance Balance Assessment sitting static balance;standing static balance;sitting dynamic balance;standing dynamic balance -KR Static Sitting Balance independent -KR Dynamic Sitting Balance independent -KR Position, Sitting Balance unsupported;sitting in chair -KR Static Standing Balance independent -KR Dynamic Standing Balance independent -KR Position/Device Used, Standing Balance unsupported -KR Balance Interventions sitting;standing;static;dynamic;sit to stand -KR Row Name 07/27/25942 Sensory Assessment (Somatosensory) Sensory Assessment (Somatosensory) LE sensation intact -KR User Diane (r) = Recorded By, (t) = Taken By, (c) = Cosigned By Initials Name Provider Type Radha Zuluaga PT Physical Therapist Goals/Plan No documentation. Clinical Impression Row Name 07/27/25943 Pain Pretreatment Pain Rating 0/10 - no pain -KR Posttreatment Pain Rating 0/10 - no pain -KR Row Name 07/27/25943 Plan of Care Review Plan of Care Reviewed With patient;spouse -KR Outcome Evaluation Pt at baseline for functional mobility tasks. No deficits identified requiring PT services. Rec home upon dc when medically appropriate. -KR Row Name 09/11/25 0944 Therapy Assessment/Plan (PT) Criteria for Skilled Interventions Met (PT) no;no problems identified which require skilled intervention -KR Row Name 07/27/25 0944 Vital Signs Pre Systolic BP Rehab 118 -KR Pre Treatment Diastolic BP 70 -KR Post Systolic BP Rehab 140 -KR Post Treatment Diastolic BP 83 -KR Pre Patient Position Standing -KR Intra Patient Position Standing -KR Post Patient Position Sitting -KR Row Name 07/27/2544 Positioning and Restraints Pre-Treatment Position standing in room -KR Post Treatment Position chair -KR In Chair notified nsg;sitting;with family/caregiver;encouraged to call for assist;with nsg;waffle cushion -KR User Diane (r) = Recorded By, (t) = Taken By, (c) = Cosigned By Initials Name Provider Type Radha Zuluaga, PT Physical Therapist Outcome Measures Row Name 07/27/25 0945 07/27/25 0141 How much help from another person do you currently need... Turning from your back to your side while in flat bed without using bedrails? 4 -KR 4 -TS Moving from lying on back to sitting on the side of a flat bed without bedrails? 4 -KR 4 -TS Moving to and from a bed to a chair (including a wheelchair)? 4 -KR 3 -TS Standing up from a chair using your arms (e.g., wheelchair, bedside chair)? 4 - KR 4 -TS Climbing 3-5 steps with a railing? 4 -KR 3 -TS To walk in hospital room? 4 -KR 4 standby assist -TS AM-PAC 6 Clicks Score (PT) 24 -KR 22 -TS Highest Level of Mobility Goal Walk 250 Feet or More - 8 -KR Walk 25 Feet or More-7 -TS Row Name 07/27/25 0015 07/26/25 2322 How much help from another person do you currently need... Turning from your back to your side while in flat bed without using bedrails? 4 -TS 4 -TS Moving from lying on back to sitting on the side of a flat bed without bedrails? 4 -TS 4 -TS Moving to and from a bed to a chair (including a wheelchair)? 3 -TS 4 -TS Standing up from a chair using your arms (e.g., wheelchair, bedside chair)? 4 - TS 4 -TS Climbing 3-5 steps with a railing? 3 -TS 4 -TS To walk in hospital room? 4 -TS 4 -TS AM-PAC 6 Clicks Score (PT) 22 -TS 24 -TS Highest Level of Mobility Goal Walk 25 Feet or More-7 -TS Walk 250 Feet or More - 8 -TS Row Name 07/27/25 0945 Modified Jackson Scale Pre-Stroke Modified Yeni Scale 6 - Unable to determine (UTD) from the medical record documentation -KR Modified Jackson Scale 1 - No significant disability despite symptoms. Able to carry out all usual duties and activities. 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 Point: Body mechanics (Done) Learning Progress Summary Patient Acceptance, E, VU by WALE at 07/27/202545 Point: Precautions (Done) Learning Progress Summary Patient Acceptance, E, VU by at 07/27/2025944 User Diane Initials Effective Dates Name Provider Type [facility] 11/14/22 - Radha Fitch, PT Physical Therapist PT PT Recommendation and Plan Recommended discharge disposition is based on the functional assessment performed by PT/OT/Speech therapy (as applicable) and may not reflect the medical necessity determined by your provider or services covered by an individual patient's insurance plan or patient resource. Outcome Evaluation: Pt at baseline for functional mobility tasks. No deficits identified requiring PT services. Rec home upon dc when medically appropriate. Time Calculation: PT Evaluation Complexity History, PT Evaluation Complexity: 3 or more personal factors and/or comorbidities Examination of Body Systems (PT Eval Complexity): total of 4 or more elements Clinical Presentation (PT Evaluation Complexity): stable Clinical Decision Making (PT Evaluation Complexity): low complexity Overall Complexity (PT Evaluation Complexity): low complexity PT Charges Row Name 07/27/25 0945 Time Calculation Start Time 0910 -KR PT Received On 07/27/25 -KR Untimed Charges PT Eval/Re-eval Minutes 46 -KR Total Minutes Untimed Charges Total Minutes 46 -KR Total Minutes 46 -KR User Diane (r) = Recorded By, (t) = Taken By, (c) = Cosigned By Initials Name Provider Type Radha Zuluaga, PT Physical Therapist Therapy Charges for Today Code Description Service Date Service Provider Modifiers Qty [id number] HC PT EVAL LOW COMPLEXITY 4 07/27/2025 Radha Fitch, PT GP 1 PT G-Codes Outcome Measure Options: AM-PAC 6 Clicks Basic Mobility (PT), Modified Jackson AM-PAC 6 Clicks Score (PT): 24 Modified Yeni Scale: 1 - No significant disability despite symptoms. Able to carry out all usual duties and activities. PT Discharge Summary Anticipated Discharge Disposition (PT): home Radha Fitch PT 07/27/2025 * Hu Pedroza, OT - 07/27/2025 9:06 AM EDT Images from the original note were not included. Patient Name: Brynn Cox : 1965 Today's Date: 07/27/2025 Admit Date: 07/26/2025 Visit Dx: ICD-10-CM ICD-9-CM 1. Syncope and collapse R55 780.2 2. Fall down stairs, initial encounter W10.8XXA E880.9 3. Stenosis of both internal carotid arteries I65.23 433.10 433.30 4. Hyperglycemia R73.9 790.29 5. Ketonuria R82.4 791.6 6. Renal insufficiency N28.9 593.9 7. Elevated troponin R79.89 790.6 Patient Active Problem List Diagnosis Diabetes type 2, uncontrolled Type 2 diabetes mellitus with hyperlipidemia Breast implant rupture Breast implant status Calculus of gallbladder without cholecystitis without obstruction Elevated LFTs Episode of recurrent major depressive disorder Essential hypertension Menopausal hot flushes Microalbuminuric diabetic nephropathy Mixed hyperlipidemia Toenail fungus Type 2 diabetes mellitus with hyperglycemia Vitamin D deficiency Insomnia Hypersomnia Fatigue Family history of early CAD Facial droop Past Medical History: Diagnosis Date Otitis media 04/20/2024 Past Surgical History: Procedure Laterality Date BREAST AUGMENTATION CHOLECYSTECTOMY TUBAL ABDOMINAL LIGATION General Information Row Name 07/27/25943 OT Time and Intention Document Type discharge evaluation/summary -CS Mode of Treatment occupational therapy;co-treatment -CS Row Name 07/27/25943 General Information Patient Profile Reviewed yes -CS Prior Level of Function independent:;all household mobility;ADL's;using stairs;work -CS Existing Precautions/Restrictions no known precautions/restrictions -CS Barriers to Rehab none identified -CS Row Name 07/27/25943 Occupational Profile Reason for Services/Referral (Occupational Profile) stroke eval, discharge planning -CS Row Name 07/27/25943 Home Main Entrance Number of Stairs, Main Entrance three -CS Stair Railings, Main Entrance railing on right side (ascending) -CS Row Name 07/27/25943 Cognition Orientation Status (Cognition) oriented x 4 -CS Row Name 07/27/25943 Safety Issues/Impairments Affecting Functional Mobility Comment, Safety Issues/Impairments (Mobility) none identified -CS User Diane (r) = Recorded By, (t) = Taken By, (c) = Cosigned By Initials Name Provider Type Hu Pearce, OT Occupational Therapist Mobility/ADL's Row Name 07/27/25943 Bed Mobility Comment, (Bed Mobility) met patient on toilet -CS Row Name 07/27/25943 Transfers Transfers toilet transfer;sit-stand transfer -CS Row Name 07/27/25943 Sit-Stand Transfer Sit-Stand Barnum (Transfers) independent -CS Row Name 07/27/25943 Toilet Transfer Type (Toilet Transfer) sit-stand -CS Barnum Level (Toilet Transfer) independent -CS Row Name 07/27/25943 Functional Mobility Functional Mobility- Comment no LOB or AD during long hallway mobility -CS Patient was able to Ambulate yes -CS Row Name 07/27/25943 Activities of Daily Living BADL Assessment/Intervention lower body dressing;grooming;feeding;toileting -CS Row Name 07/27/25943 Lower Body Dressing Assessment/Training Barnum Level (Lower Body Dressing) don;socks;independent -CS Position (Lower Body Dressing) edge of bed sitting;supported standing - Row Name 07/27/25943 Grooming Assessment/Training Barnum Level (Grooming) hair care, combing/brushing;oral care regimen;wash face, hands;independent -CS Row Name 07/27/25943 Self-Feeding Assessment/Training Barnum Level (Feeding) feeding skills;independent - Row Name 07/27/25943 Toileting Assessment/Training Barnum Level (Toileting) toileting skills;independent -CS User Diane (r) = Recorded By, (t) = Taken By, (c) = Cosigned By Initials Name Provider Type CS Hu Pedroza OT Occupational Therapist Obj/Interventions Row Name 07/27/25945 Sensory Assessment (Somatosensory) Sensory Assessment (Somatosensory) bilateral UE -CS Bilateral UE Sensory Assessment general sensation;light touch awareness;light touch localization;proprioception;intact -[facility] Name 07/27/25945 Vision Assessment/Intervention Visual Impairment/Limitations WFL - Vision Assessment Comment full to confrontation, tracking intact -CS Row Name 07/27/25945 Range of Motion Comprehensive General Range of Motion no range of motion deficits identified - Row Name 07/27/25945 Strength Comprehensive (MMT) General Manual Muscle Testing (MMT) Assessment no strength deficits identified -CS Comment, General Manual Muscle Testing (MMT) Assessment BUE grossly 5/5, symmetrical - Row Name 07/27/25945 Motor Skills Motor Skills coordination;functional endurance - Coordination bilateral;upper extremity;finger to nose;bimanual skills;WFL -CS Functional Endurance O2 sats stable on RA - Row Name 07/27/25945 Balance Balance Assessment sitting static balance;sitting dynamic balance;standing static balance;standing dynamic balance -CS Static Sitting Balance independent -CS Dynamic Sitting Balance independent -CS Position, Sitting Balance unsupported -CS Static Standing Balance independent -CS Dynamic Standing Balance independent -CS Position/Device Used, Standing Balance unsupported -CS Balance Interventions sitting;standing;sit to stand;occupation based/functional task -CS Comment, Balance no LOB during ADLs or related mobility -CS User Diane (r) = Recorded By, (t) = Taken By, (c) = Cosigned By Initials Name Provider Type Hu Pearce OT Occupational Therapist Goals/Plan No documentation. Clinical Impression Row Name 07/27/25945 Pain Assessment Pretreatment Pain Rating 0/10 - no pain -CS Posttreatment Pain Rating 0/10 - no pain -CS Row Name 07/27/25945 Plan of Care Review Plan of Care Reviewed With patient -CS Progress no change -CS Outcome Evaluation Pt presents at baseline for ADL completion with symmetrical BUE strength and coordination/sensation intact. OT signing off, please reconsult if needed. Rec d/c to home when medically appropriate. -CS Row Name 07/27/25945 Therapy Assessment/Plan (OT) Criteria for Skilled Therapeutic Interventions Met (OT) no;does not meet criteria for skilled intervention -CS Therapy Frequency (OT) evaluation only -CS Row Name 07/27/25945 Vital Signs Pre Systolic BP Rehab 118 -CS Pre Treatment Diastolic BP 72 -CS Post Systolic BP Rehab 140 -CS Post Treatment Diastolic BP 83 -CS O2 Delivery Pre Treatment room air -CS O2 Delivery Intra Treatment room air -CS O2 Delivery Post Treatment room air -CS Pre Patient Position Supine -CS Intra Patient Position Standing -CS Post Patient Position Sitting -CS Row Name 07/27/25945 Positioning and Restraints Pre-Treatment Position bathroom -CS Post Treatment Position chair -CS In Chair notified nsg;reclined;sitting;call light within reach;encouraged to call for assist;exit alarm on;with nsg;waffle cushion;legs elevated -CS User Diane (r) = Recorded By, (t) = Taken By, (c) = Cosigned By Initials Name Provider Type Hu Pearce OT Occupational Therapist Outcome Measures Row Name 07/27/25946 How much help from another is currently needed... Putting on and taking off regular lower body clothing? 4 -CS Bathing (including washing, rinsing, and drying) 4 -CS Toileting (which includes using toilet bed ames or urinal) 4 -CS Putting on and taking off regular upper body clothing 4 -CS Taking care of personal grooming (such as brushing teeth) 4 -CS Eating meals 4 -CS AM-PAC 6 Clicks Score (OT) 24 -CS Row Name 07/27/2545 07/27/25 0141 How much help from another person do you currently need... Turning from your back to your side while in flat bed without using bedrails? 4 -KR 4 -TS Moving from lying on back to sitting on the side of a flat bed without bedrails? 4 -KR 4 -TS Moving to and from a bed to a chair (including a wheelchair)? 4 -KR 3 -TS Standing up from a chair using your arms (e.g., wheelchair, bedside chair)? 4 - KR 4 -TS Climbing 3-5 steps with a railing? 4 -KR 3 -TS To walk in hospital room? 4 -KR 4 standby assist -TS AM-PAC 6 Clicks Score (PT) 24 -KR 22 -TS Highest Level of Mobility Goal Walk 250 Feet or More - 8 -KR Walk 25 Feet or More-7 -TS Row Name 07/27/25 0015 07/26/25 2102 How much help from another person do you currently need... Turning from your back to your side while in flat bed without using bedrails? 4 -TS 4 -TS Moving from lying on back to sitting on the side of a flat bed without bedrails? 4 -TS 4 -TS Moving to and from a bed to a chair (including a wheelchair)? 3 -TS 4 -TS Standing up from a chair using your arms (e.g., wheelchair, bedside chair)? 4 - TS 4 -TS Climbing 3-5 steps with a railing? 3 -TS 4 -TS To walk in hospital room? 4 -TS 4 -TS AM-PAC 6 Clicks Score (PT) 22 -TS 24 -TS Highest Level of Mobility Goal Walk 25 Feet or More-7 -TS Walk 250 Feet or More - 8 -TS Row Name 07/27/25 0947 07/27/25 0945 Modified Jackson Scale Pre-Stroke Modified Jackson Scale -- 6 - Unable to determine (UTD) from the medical record documentation -KR Modified Jackson Scale 1 - No significant disability despite symptoms. Able to carry out all usual duties and activities. -CS 1 - No significant disability despite symptoms. Able to carry out all usual duties and activities. -KR Row Name 07/27/25 0947 07/27/25 0945 Functional Assessment Outcome Measure Options AM-PAC 6 Clicks Daily Activity (OT);Modified Yeni -CS AM-PAC 6 Clicks Basic Mobility (PT);Modified Jackson -KR User Diane (r) = Recorded By, (t) = Taken By, (c) = Cosigned By Initials Name Provider Type CS Hu Pedroza OT Occupational Therapist Radha Zuluaga PT Physical Therapist Gage Ramirez RN Registered Nurse OT Recommendation and Plan Recommended discharge disposition is based on the functional assessment performed by PT/OT/Speech therapy (as applicable) and may not reflect the medical necessity determined by your provider or services covered by an individual patient's insurance plan or patient resource. Therapy Frequency (OT): evaluation only Plan of Care Review Plan of Care Reviewed With: patient Progress: no change Outcome Evaluation: Pt presents at baseline for ADL completion with symmetrical BUE strength and coordination/sensation intact. OT signing off, please reconsult if needed. Rec d/c to home when medically appropriate. Time Calculation: Evaluation Complexity (OT) Review Occupational Profile/Medical/Therapy History Complexity: brief/low complexity Assessment, Occupational Performance/Identification of Deficit Complexity: 1-3 performance deficits Clinical Decision Making Complexity (OT): problem focused assessment/low complexity Overall Complexity of Evaluation (OT): low complexity Time Calculation- OT Row Name 07/27/25 0948 Time Calculation- OT OT Start Time 905 -CS OT Received On 07/27/25 -CS Untimed Charges OT Eval/Re-eval Minutes 47 -CS Total Minutes Untimed Charges Total Minutes 47 -CS Total Minutes 47 -CS User Diane (r) = Recorded By, (t) = Taken By, (c) = Cosigned By Initials Name Provider Type CS Hu Pedroza OT Occupational Therapist Therapy Charges for Today Code Description Service Date Service Provider Modifiers Qty [id number] OT EVAL LOW COMPLEXITY 4 07/27/2025 Hu Pedroza OT GO 1 Hu Pedroza OT 07/27/2025 documented in this encounter Discharge Instructions * Discharge Instructions* Michelle Moon MD - 07/27/2025 12:59 PM EDT Please take aspirin and clopidogrel daily for the next 3 months. Please see neurology in the clinic. * Attachments The following attachments cannot be sent through Care Everywhere. * Transient Ischemic Attack [id number] ([place]rian) documented in this encounter Medications at Time of Discharge aspirin 81 MG chewable tablet Chew 1 tablet Daily. 90 tablet 2 07/28/2025 atorvastatin (LIPITOR) 80 MG tablet Take 1 tablet by mouth Daily. 04/27/2023 clopidogrel (PLAVIX) 75 MG tablet Take 1 tablet by mouth Daily. 90 tablet 2 07/28/2025 Continuous Glucose Sensor (FreeStyle Jovita 3 Plus Sensor) Use as directed every 15 days 6 each 02/17/2025 Continuous Glucose Sensor (FreeStyle Jovita 3 Sensor) misc Inject 1 each under the skin into the appropriate area as directed Every 14 (Fourteen) Days. 2 each 6 05/15/2025 estradiol (VAGIFEM) 10 MCG tablet vaginal tablet Insert 1 tablet into the vagina 2 (Two) Times a Week. 04/03/2025 Insulin Glargine (BASAGLAR KWIKPEN) 100 UNIT/ML injection pen Inject 48 Units under the skin into the appropriate area as directed Daily. 45 mL 1 04/19/2025 lisinopril (PRINIVIL,ZESTRI L) 10 MG tablet Take 1 tablet by mouth Daily. 04/27/2023 venlafaxine XR (EFFEXOR-XR) 75 MG 24 hr capsule Take 1 capsule by mouth Daily. 03/05/2022 carvedilol (COREG) 25 MG tablet Take 1 tablet by mouth Every 12 (Twelve) Hours. 06/15/2023 5 Mounjaro 7.5 MG/0.5ML solution auto-injector Inject 7.5 mg under the skin into the appropriate area as directed 1 (One) Time Per Week. 6 mL 1 05/15/2025 5 documented as of this encounter Progress Notes * Kip Osullivan MD - 07/27/2025 8:02 AM EDT Stroke Progress Note Chief Complaint: Speech difficulty Subjective Subjective Subjective: The patient is sitting in bed without any acute distress. She is accompanied by her . Patient reports that yesterday evening she became hot and profusely sweaty. She had a syncopal event and fell down the stairs. Around this time she also had episode of diarrhea. She was noted by EMS to have speech difficulty and right facial droop. Today she feels that her symptoms are fully resolved. Review of Systems Constitutional: No fatigue Objective Temp: [97.9 ??F (36.6 ??C)-98.1 ??F (36.7 ??C)] 98.1 ??F (36.7 ??C) Heart Rate: [93-122] 103 Resp: [18-20] 18 BP: (118-203)/(54-136) 118/70 Objective GEN: lying in bed; in NAD HENT: normocephalic NEURO: Mental Status: A&O x 3, interactive, able to follow commands Speech: Intact Articulation CN 2-12: II - PERRLA, VFs full to confrontation III, IV, - EOMI V - Facial sensation intact VII - Brow raise and smile symmetrical VIII - Auditory acuity intact IX, X - Palate elevation symmetric, uvula midline XI - SCM and Trapezius strength intact XII - Tongue protrudes midline Motor: RUE: 5/5 LUE: 5/5 RLE: 5/5 LLE: 5/5 Sensory: intact light touch throughout Coordination: no ataxia with [id number] testing Reflexes and gait deferred Results Review: I reviewed the patient's new clinical results. WBC Date Value Ref Range Status 07/27/2025 11.73 (H) 3.40 - 10.80 10*3/mm3 Final RBC Date Value Ref Range Status 07/27/2025 3.75 (L) 3.77 - 5.28 10*6/mm3 Final Hemoglobin Date Value Ref Range Status 07/27/2025 11.9 (L) 12.0 - 15.9 g/dL Final Hematocrit Date Value Ref Range Status 07/27/2025 37.3 34.0 - 46.6 % Final MCV Date Value Ref Range Status 07/27/2025 99.5 (H) 79.0 - 97.0 fL Final MCH Date Value Ref Range Status 07/27/2025 31.7 26.6 - 33.0 pg Final MCHC Date Value Ref Range Status 07/27/2025 31.9 31.5 - 35.7 g/dL Final RDW Date Value Ref Range Status 07/27/2025 12.8 12.3 - 15.4 % Final RDW-SD Date Value Ref Range Status 07/27/2025 46.6 37.0 - 54.0 fl Final MPV Date Value Ref Range Status 07/27/2025 10.2 6.0 - 12.0 fL Final Platelets Date Value Ref Range Status 07/27/2025 193 140 - 450 10*3/mm3 Final Neutrophil % Date Value Ref Range Status 07/27/2025 76.5 (H) 42.7 - 76.0 % Final Lymphocyte % Date Value Ref Range Status 07/27/2025 14.5 (L) 19.6 - 45.3 % Final Monocyte % Date Value Ref Range Status 07/27/2025 8.4 5.0 - 12.0 % Final Eosinophil % Date Value Ref Range Status 07/27/2025 0.0 (L) 0.3 - 6.2 % Final Basophil % Date Value Ref Range Status 07/27/2025 0.2 0.0 - 1.5 % Final Immature Grans % Date Value Ref Range Status 07/27/2025 0.4 0.0 - 0.5 % Final Neutrophils, Absolute Date Value Ref Range Status 07/27/2025 8.97 (H) 1.70 - 7.00 10*3/mm3 Final Lymphocytes, Absolute Date Value Ref Range Status 07/27/2025 1.70 0.70 - 3.10 10*3/mm3 Final Monocytes, Absolute Date Value Ref Range Status 07/27/2025 0.99 (H) 0.10 - 0.90 10*3/mm3 Final Eosinophils, Absolute Date Value Ref Range Status 07/27/2025 0.00 0.00 - 0.40 10*3/mm3 Final Basophils, Absolute Date Value Ref Range Status 07/27/2025 0.02 0.00 - 0.20 10*3/mm3 Final Immature Grans, Absolute Date Value Ref Range Status 07/27/2025 0.05 0.00 - 0.05 10*3/mm3 Final nRBC Date Value Ref Range Status 07/27/2025 0.0 0.0 - 0.2 /100 WBC Final Lab Results Component Value Date GLUCOSE 78 07/27/2025 BUN 17.2 07/27/2025 CREATININE 0.88 07/27/2025 NA 138 07/27/2025 K 3.8 07/27/2025 CL 104 07/27/2025 CALCIUM 8.7 07/27/2025 PROTEINTOT 6.1 07/27/2025 ALBUMIN 3.5 07/27/2025 ALT 237 (H) 07/27/2025 AST 127 (H) 07/27/2025 ALKPHOS 123 (H) 07/27/2025 BILITOT 0.8 07/27/2025 GLOB 2.6 07/27/2025 AGRATIO 1.3 07/27/2025 BCR 19.5 07/27/2025 ANIONGAP 13.9 07/27/2025 EGFR 74.4 07/27/2025 MRI Brain Without Contrast Result Date: 07/26/2025 Impression: Small patchy areas of diffusion restriction seen within the subcortical white matter ofthe left frontal and parietal lobes with very minimal if any corresponding decreased signal on the ADC map. Findings likely related to subacute infarcts or the sequela of previous infarcts. No evidence of hemorrhage, mass effect or midline shift. Electronically Signed: Lucila Elliott MD 07/26/2025 11:08 PM EDT Workstation ID: [id number] [facility] CT CEREBRAL PERFUSION WITH & WITHOUT CONTRAST Result Date: 07/26/2025 1. Area of suggested ischemic brain at risk involving the left MCA territory without core infarction. Electronically Signed: Saturnino Macdonald MD 07/26/2025 9:07 PM EDT [facility] ID[id number] Result Date: 07/26/2025 Impression: 1.Occlusion of the supraclinoid left internal carotid artery with minimal opacificationof the cavernous and petrous segments. Left anterior cerebral and middle cerebral arteries are supplied by a patent anterior communicating artery. 2.High-grade stenosis of the supraclinoid right internal carotid artery. 3.No evidence of intracranial aneurysm. Electronically Signed: Guille Miller MD 07/26/2025 7:59 PM EDT Workstation ID: [id number] CT Angiogram Neck Result Date: 07/26/2025 Impression: 1.Occlusion of the supraclinoid left internal carotid artery with minimal opacificationof the cavernous and petrous segments. Left anterior cerebral and middle cerebral arteries are supplied by a patent anterior communicating artery. 2.High-grade stenosis of the supraclinoid right internal carotid artery. 3.No evidence of intracranial aneurysm. Electronically Signed: Guille Miller MD 07/26/2025 7:59 PM EDT Workstation ID: [id number] CT Head Without Contrast Result Date: 07/26/2025 Impression: No acute intracranial findings. Electronically Signed: Saturnino Macdonald MD 07/26/2025 7:48 PM EDT Workstation ID: [id number] Results for orders placed during the hospital encounter of 07/26/25 Adult Transthoracic Echo Complete W/ Cont if Necessary Per Protocol (With Agitated Saline) 07/27/2025 12:17 PM Interpretation Summary Left ventricular ejection fraction appears to be 56 - 60%. Left ventricular wall thickness is consistent with hypertrophy. Saline test results are negative. Assessment/Plan Assessment: #Speech difficulty #Right facial droop #Syncope #Left ICA occlusion #Right ICA high-grade stenosis #Type 2 diabetes #Hypertension #Hyperlipidemia 60-year-old female with PMH of HTN, HLD and T2DM. She presents to [facility] ED after a syncopal event. EMS also reports patient having right facial droop and speech difficulty. Patient was not a candidate for IV thrombolytic therapy due to last known well greater than 4.5 hours. Patient was not a candidate for endovascular therapy due to no acute LVO. Imaging personally reviewed. No acute findings on CT head. CTA was notable for occlusion of the distal left ICA (likely chronic). There is also significant stenosis of the distal right ICA. CTP with area of hypoperfusion in the left cerebral hemisphere, most significantly in watershed distribution.On MRI there is some patchy areas of diffusion restriction on DWI, however there is no clear ADC correlate. This may represent shine through from previous infarcts. Echocardiogram with no left atrial dilation negative bubble study. LDL is 82. Starting [id number] mg nightly with LDL goal of less than 70. Given the left ICA occlusion and severe stenosis of the right ICA would avoid hypotension in this patient. Typical blood pressure goals may be relaxed with systolic blood pressure up to 150. Counseled the patient on maintaining good hydration. Given the intracranial atherosclerotic disease, recommend dual antiplatelet therapy with aspirin 81 mg and clopidogrel 75 mg daily for at least 90 days. Patient and seem agreeable to this today but there is some medication hesitancy (concerns about adverse effects of long-term medications) and generalpreference to treat with diet and exercise. Would readdress long-term plan for antiplatelets at next clinic visit. Patient is follow-up in vascular neurology clinic in approximately 4 to 8 weeks. Plan: -Dual antiplatelet therapy with aspirin 81 mg daily and clopidogrel 75 mg daily for 90 days, followed by aspirin 81 mg monotherapy thereafter -Start atorvastatin 40 mg daily -Allow for systolic blood pressure to be 130-150, avoiding hypotension -Maintain good hydration -Discussed improving diet and exercise -Continue to work on improved blood glucose control, A1c goal less than 7.0 -Patient should follow-up in vascular neurology clinic in 4 to 8 weeks Patient education: call 911 or present to emergency department with any stroke symptom, including unilateral face, arm, or leg weakness, numbness, or paresthesias, unilateral facial droop, speech deficits, dizziness with nausea, vomiting, nystagmus, and incoordination, visual deficits, or severe onset headache. Stroke will now sign off. Please call for any further questions or concerns Kip Osullivan MD Vascular Neurologist [facility] documented in this encounter H&P Notes * Michael Cano MD - 07/26/2025 8:50 PM EDT Images from the original note were not included. [facility] Medicine Services HISTORY AND PHYSICAL Patient Name: Brynn Cox : 1965 Primary Care Physician: Araceli Doyle MD Date of admission: 07/26/2025 Subjective Subjective Chief Complaint: Speech difficulty HPI: Brynn Cox is a 60 y.o. female with a past medical history significant for hypertension, hyperlipidemia, type 2 diabetes mellitus, and overweight status. She presented to [facility] Emergency Department by EMS with complaints of right facial droop and speech difficulties. The patient reported that she was in her usual state of health earlier in the day until approximately 3 PM, when she was babysitting her grandson. While attempting to have a bowel movement, she experienced constipation and straining, which was followed by dizziness and lightheadedness. Shortly after leaving the restroom, she became unsteady, fell down the stairs, but denied loss of consciousness.She described significant dizziness, fatigue, and difficulty moving, but was able to crawl upstairsto reach her grandson. Her son later arrived and found her confused and lightheaded, prompting him to call EMS. During transport, EMS personnel noted a right facial droop along with speech difficulty. On arrival to the emergency department, her NIH stroke score was assessed as 1. Blood pressure was elevated in the range of 170s/100s. A stroke code was promptly activated. Imaging included a CT head, which revealed no acute intracranial findings. However, CT angiography of the head and neck demonstrated an occlusion of the supraclinoid left internal carotid artery, with minimal opacification of the cavernous and petrous segments. The left anterior cerebral and middlecerebral arteries remained patent via a patent anterior communicating artery. Additionally, there was evidence of high-grade stenosis of the supraclinoid right internal carotid artery. No intracranial aneurysm was identified. The stroke team evaluated the patient and determined she was not a candidate for IV thrombolytic therapy, as her last known well time was greater than 4.5 hours. They recommended initiation of dual antiplatelet therapy and obtaining an MRI of the brain the following morning. The hospitalist service was consulted for admission to continue management of her right facial droop, speech difficulty, and mild aphasia. Further evaluation and treatment will be directed toward secondary stroke prevention and comprehensive inpatient care. Personal History Past Medical History: Diagnosis Date Otitis media 04/20/2024 Past Surgical History: Procedure Laterality Date BREAST AUGMENTATION CHOLECYSTECTOMY TUBAL ABDOMINAL LIGATION Family History: family history includes Coronary artery disease in her father and mother; Diabetes in her father and mother; Hypertension in her father. Social History: reports that she has never smoked. She has been exposed to tobacco smoke. She has never used smokeless tobacco. She reports that she does not drink alcohol and does not use drugs. Social History Social History Narrative Not on file Medications: Available home medication information reviewed. BASAGLAR KWIKPEN, FreeStyle Jovita 3 Plus Sensor, FreeStyle Jovita 3 Sensor, Tirzepatide, atorvastatin, carvedilol, estradiol, lisinopril, and venlafaxine XR Allergies Allergen Reactions Codeine GI Intolerance Vomiting Sulfa Antibiotics GI Intolerance vomiting Objective Objective Vital Signs: Temp: [97.9 ??F (36.6 ??C)] 97.9 ??F (36.6 ??C) Heart Rate: [93-122] 121 Resp: [18] 18 BP: (137-203)/(69-136) 173/99 Total (NIH Stroke Scale): 0 Physical Exam Constitutional: Awake, alert x4, not in acute distress Eyes: PERRLA, sclerae anicteric, no conjunctival injection HENT: NCAT, mucous membranes moist Neck: Supple, no thyromegaly, no lymphadenopathy, trachea midline Respiratory: Clear to auscultation bilaterally, nonlabored respirations Cardiovascular: RRR, no murmurs, rubs, or gallops, palpable pedal pulses bilaterally Gastrointestinal: Positive bowel sounds, soft, nontender, nondistended Musculoskeletal: No bilateral ankle edema, no clubbing or cyanosis to extremities Psychiatric: Appropriate affect, cooperative Neurologic: Oriented x 3, strength symmetric in all extremities, Cranial Nerves grossly intact to confrontation, speech clear Skin: No rashes Result Review: I have personally reviewed the results from the time of this admission to 07/27/2025 01:19 EDT and agree with these findings: [x] Laboratory list / accordion [] Microbiology [x] Radiology [x] EKG/Telemetry [] Cardiology/Vascular [] Pathology [x] Old records [] Other: Most notable findings include: LAB RESULTS: Lab 07/26/253 WBC 7.98 HEMOGLOBIN 12.2 HEMATOCRIT 36.2 PLATELETS 218 NEUTROS ABS 5.47 IMMATURE GRANS (ABS) 0.04 LYMPHS ABS 2.01 MONOS ABS 0.45 EOS ABS 0.00 MCV 91.0 Lab 07/26/25200507/26/253 SODIUM -- 136 POTASSIUM -- 4.2 CHLORIDE -- 100 CO2 -- 25.0 ANION GAP -- 11.0 BUN -- 21.8 CREATININE -- 1.02* EGFR -- 62.3 GLUCOSE -- 236* CALCIUM -- 9.2 MAGNESIUM -- 2.2 TSH 2.090 -- Lab 07/26/253 TOTAL PROTEIN 6.8 ALBUMIN 4.2 GLOBULIN 2.6 ALT (SGPT) 133* AST (SGOT) 74* BILIRUBIN 0.4 ALK PHOS 157* Lab 07/26/25 2006 07/26/25 1813 HSTROP T 20* 20* UA 07/26/2025 18:27 Urinalysis Squamous Epithelial Cells, UA 3-6 Specific [place], UA 1.019 Ketones, UA Trace Blood, UA Negative Leukocytes, UA Small (1+) Nitrite, UA Negative RBC, UA 0-2 WBC, UA 0-2 Bacteria, UA Trace Microbiology Results (last 10 days) No results found for the last 240 hours. MRI Brain Without Contrast Result Date: 07/26/2025 MRI BRAIN WO CONTRAST Date of Exam: 07/26/2025 10:34 PM EDT Indication: rfd, speech difficulty. Comparison: 07/26/2025. Technique: Routine multiplanar/multisequence sequence images of the brain were obtained without contrast administration. Findings: Small patchy areas of diffusion restriction are seen within the subcortical white matter of the left frontal and parietal lobes. There is very minimalif any corresponding decreased signal on the ADC map. Patchy areas of FLAIR signal changes are seencorresponding to these regions. No additional FLAIR signal changes identified. No additional diffusion signal abnormalities identified. There is no evidence of acute or chronic intracranial hemorrhage. No mass effect or midline shift. No abnormal extra- axial collections. The major vascular flow voids appear intact. The basal ganglia, brainstem and cerebellum appear within normal limits. Calvarialand superficial soft tissue signal is within normal limits. Orbits appear unremarkable. The paranasal sinuses and the mastoid air cells appear well aerated. Midline structures are intact. Impression: Impression: Small patchy areas of diffusion restriction seen within the subcortical white matter of the left frontal and parietal lobes with very minimal if any corresponding decreased signal on the ADC map. Findings likely related to subacute infarcts or the sequela of previous infarcts. No evidence of hemorrhage, mass effect or midline shift. Electronically Signed: Lucila Elliott MD 07/26/2025 11:08 PM EDT Workstation ID: [id number] [facility] CT CEREBRAL PERFUSION WITH & WITHOUT CONTRAST Result Date: 07/26/2025 CT CEREBRAL PERFUSION W WO CONTRAST Date of Exam: 07/26/2025 8:37 PM EDT Indication: rfd, speech difficulties. Comparison: None available. Technique: Axial CT images of the brain were obtained prior to and after the administration of iodinated contrast. Core blood volume, core blood flow, mean transit time, and Tmax images were obtained utilizing the Rapid software protocol. A limited CT angiogramof the head was also performed to measure the blood vessel density. The radiation dose reduction device was turned on for each scan per the ALARA (As Low as Reasonably Achievable) protocol. Findings:There is an area of elevated Tmax greater than 6 seconds within the left MCA territory white matter extending to the parietal cortex consistent with an area of ischemic brain at risk. No decrease in cerebral blood flow to suggest core infarction. CBF<30% volume: 0mL Tmax>6sec volume: 22 mL Mismatch volume: 22 mL Mismatch ratio: Infinite Impression: 1. Area of suggested ischemic brain at risk involving the left MCA territory without core infarction. Electronically Signed: Saturnino Macdonald MD 07/26/2025 9:07 PM EDT Workstation ID: [id number] [facility]x[address] Angiogram Head Result Date: 07/26/2025 CT ANGIOGRAM HEAD, CT ANGIOGRAM NECK Date of Exam: 07/26/2025 7:11 PM EDT Indication: facial droop, speech disturbance, syncope. Comparison: None available. Technique: CTA of the head was performed after the uneventful intravenous administration of iodinated contrast. Reconstructed coronal and sagittal images were also obtained. In addition, a 3-D volume rendered image was created for interpretation. Automated exposure control and iterative reconstruction methods were used. Findings: Aortic arch: The aortic arch is unremarkable. There is conventional 3 vessel arch anatomy. The right brachioceph alic and visualized bilateral subclavian arteries are within normal limits. Right carotid: The right CCA arises as expected from the brachiocephalic trunk. The CCA follows a normal course and appearsnormal caliber. Very small calcified plaque is visualized in the right carotid bifurcation without evidence of luminal narrowing. The external carotid artery and distal branches appear within normal limits. The cervical internal carotid artery follows a normal course and appears normal caliber throughout the neck and into the head. Calcified plaque in the supraclinoid right internal carotid artery causes high-grade stenosis. There are additional calcified plaques proximally in the cavernous segment causing mild to moderate stenosis. The ophthalmic artery origin is normal. The A1 and M1 segments appear within normal limits. The visualized distal JERMAINE and MCA branches appear patent. There is apatent anterior communicating artery. Right posterior communicating artery is not visualized. Left carotid: The left CCA arises as expected from the aortic arch. The CCA follows a normal course and appears normal caliber. The carotid bifurcation is unremarkable. The external carotid artery and distal branches appear within normal limits. The cervical internal carotid artery follows a normal course and appears normal caliber throughout the neck and into the head. Extensive mixed density plaque is visualized in the cavernous and supraclinoid left internal carotid artery. There is occlusion of the supraclinoid left internal carotid artery and minimal opacification of the cavernous and petroussegments. Origin of the left ophthalmic artery is not visualized. The A1 and M1 segments appear within normal limits. The visualized distal JERMAINE and MCA branches appear patent. Left posterior communicating artery is not visualized. Posterior circulation: Vertebral arteries arise as expected from ipsilateral subclavian arteries. The vertebral arteries are codominant. The vertebral arteries follow anormal course and appear normal caliber throughout the neck and into the head. The V4 segments are patent. Visualized posterior inferior cerebellar arteries are within normal limits. The basilar artery is normal caliber. Superior cerebellar arteries are patent. Bilateral P1 segments and posterior cerebral arteries appear within normal limits. Nonvascular findings: Intracranial structures appear un remarkable. Orbits are within normal limits. Paranasal sinuses and mastoid air cells appear well aerated. Superficial soft tissues and underlying musculature appear within normal limits. The lung apices are clear. The thyroid and salivary glands appear unremarkable. The suprahyoid and infrahyoid spaces of the neck appear unremarkable. There is no evidence of cervical lymphadenopathy or a neck mass. There are no acute osseous abnormalities or destructive bone lesions. Moderate degenerative disease at C5-C6 and C6-C7 is visualized. Impression: Impression: 1.Occlusion of the supraclinoid left internal carotid artery with minimal opacification of the cavernous and petrous segments. Left anterior cerebral and middle cerebral arteries are supplied by a patent anterior communicating artery. 2.High-grade stenosis of the supraclinoid right internal carotid artery. 3.No evidence of intracranial aneurysm. Electronically Signed: uGille Miller MD 07/26/2025 7:59 PM EDT Workstation ID: [id number] CT Angiogram Neck Result Date: 07/26/2025 CT ANGIOGRAM HEAD, CT ANGIOGRAM NECK Date of Exam: 07/26/2025 7:11 PM EDT Indication: facial droop, speech disturbance, syncope. Comparison: None available. Technique: CTA of the head was performed after the uneventful intravenous administration of iodinated contrast. Reconstructed coronal and sagittal images were also obtained. In addition, a 3-D volume rendered image was created for interpretation. Automated exposure control and iterative reconstruction methods were used. Findings: Aortic arch: The aortic arch is unremarkable. There is conventional 3 vessel arch anatomy. The right brachioceph alic and visualized bilateral subclavian arteries are within normal limits. Right carotid: The right CCA arises as expected from the brachiocephalic trunk. The CCA follows a normal course and appearsnormal caliber. Very small calcified plaque is visualized in the right carotid bifurcation without evidence of luminal narrowing. The external carotid artery and distal branches appear within normal limits. The cervical internal carotid artery follows a normal course and appears normal caliber throughout the neck and into the head. Calcified plaque in the supraclinoid right internal carotid artery causes high-grade stenosis. There are additional calcified plaques proximally in the cavernous segment causing mild to moderate stenosis. The ophthalmic artery origin is normal. The A1 and M1 segments appear within normal limits. The visualized distal JERMAINE and MCA branches appear patent. There is apatent anterior communicating artery. Right posterior communicating artery is not visualized. Left carotid: The left CCA arises as expected from the aortic arch. The CCA follows a normal course and appears normal caliber. The carotid bifurcation is unremarkable. The external carotid artery and distal branches appear within normal limits. The cervical internal carotid artery follows a normal course and appears normal caliber throughout the neck and into the head. Extensive mixed density plaque is visualized in the cavernous and supraclinoid left internal carotid artery. There is occlusion of the supraclinoid left internal carotid artery and minimal opacification of the cavernous and petrous segments. Origin of the left ophthalmic artery is not visualized. The A1 and M1 segments appear within normal limits. The visualized distal JERMAINE and MCA branches appear patent. Left posterior communicating artery is not visualized. Posterior circulation: Vertebral arteries arise as expected from ipsilateral subclavian arteries. The vertebral arteries are codominant. The vertebral arteries follow a normal course and appear normal caliber throughout the neck and into the head. The V4 segments are patent. Visualized posterior inferior cerebellar arteries are within normal limits. The basilar artery is normal caliber. Superior cerebellar arteries are patent. Bilateral P1 segments and posterior cerebral arteries appear within normal limits. Nonvascular findings: Intracranial structures appear unremarkable. Orbits are within normal limits. Paranasal sinuses and mastoid air cells appear well aerated. Superficial soft tissues and underlying musculature appear within normal limits. The lung apices are clear. The thyroid and salivary glands appear unremarkable. The suprahyoid and infrahyoid spaces of the neck appear unremarkable. There is no evidence of cervical lymphadenopathy or a neck mass. There are no acute osseous abnormalities or destructive bone lesions. Moderate degenerative disease at C5-C6 and C6-C7 is visualized. Impression: Impression: 1.Occlusion of the supraclinoid left internal carotid artery with minimal opacification of the cavernous and petrous segments. Left anterior cerebral and middle cerebral arteries are supplied by a patent anterior communicating artery. 2.High-grade stenosis of the supraclinoid right internal carotid artery. 3.No evidence of intracranial aneurysm. Electronically Signed: Guille Miller MD 07/26/2025 7:59 PM EDT Workstation ID: [id number] CT Head Without Contrast Result Date: 07/26/2025 CT HEAD WO CONTRAST Date of Exam: 07/26/2025 7:11 PM EDT Indication: Fall, head injury. Comparison: None available. Technique: Axial CT images were obtained of the head without contrast administration. Automated exposure control and iterative construction methods were used. Findings: There is no evidence of acute territorial infarction. There is no acute intracranial hemorrhage. There are no extra-axial collections. Ventricles and CSF spaces are symmetric. No mass effect nor hydrocephalus. Brainparenchyma appears normal for age. Paranasal sinuses and mastoid air cells are adequately aerated. Osseous structures and orbits appear intact. Impression: Impression: No acute intracranial findings. Electronically Signed: Saturnino Macdonald MD 07/26/2025 7:48 PM EDT Workstation ID: [id number] Results for orders placed in visit on 10/01/23 Adult Transthoracic Echo Complete W/ Cont if Necessary Per Protocol 10/02/2023 9:55 PM Interpretation Summary Left ventricular systolic function is normal. Left ventricular ejection fraction appears to be 61 -65%. Left ventricular wall thickness is consistent with mild concentric hypertrophy. Left ventricular diastolic function is consistent with (grade I) impaired relaxation. No significant valvular regurgitation or stenosis present. The quality of the images are limited due to breast implants. Assessment & Plan Assessment & Plan Facial droop TIA versus acute CVA (highly concern for stroke awaiting for MRI results) Speech difficulties Vasovagal syncopal episode Fall at home T2DM HTN HLD Transaminitis Elevated creatinine A 60-year-old female with HTN, HLD, T2DM, and overweight presented with acute right facial droop, speech difficulty, and mild aphasia after a fall associated with dizziness and straining during bowelmovement. On arrival, NIH stroke score was 1, and blood pressure was elevated to the 170s/100s. CT head was negative for acute findings, but CTA revealed left supraclinoid ICA occlusion with collateral flow and high-grade stenosis of the right ICA. She was not a candidate for thrombolysis due to last known well >4.5 hours, and was admitted for dual antiplatelet therapy, MRI pending, and further stroke management. TIA versus acute/subacute CVA Right facial droop Speech difficulties Syncopal episodes? -Admit telemetry with monitor - Neurocheck on neurovascular check - Stroke team on board - MRI, ordered pending, highly concern for acute versus subacute stroke given her symptoms - CTA angio neck concerning for occlusion of the left ICA territory, CT cerebral perfusion with ischemic brain at risk involving the left MCA territory without core infarction - Start DAPT with aspirin and Plavix after loading dose, continue - High-dose statin - Echocardiogram in a.m. - Ultrasound carotid ordered pending result, consider neurovascular evaluation in a.m. if needed - Labs include A1c lipid panel CBC, CMP in a.m. - Allow permissive blood pressure with SBP up to 200, - PT OT and [employer] eval - Case management consulted for possible placement if needed Vasovagal syncopal episode: Mild dehydration Diarrhea Likely related to dehydration versus constipation -Vital sign per protocol -IVF LR 75 mL/h for next 12 hours - Treat constipation with scheduled laxatives - Continue to monitor for now - EKG - Consider Holter monitor at discharge if needed Blood per rectum: Upon admission, patient reported blood drops with diarrhea Rectal exam confirmed from anal - Will continue monitor for now -Likely after fall or recurrent diarrhea -CBC in a.m. and monitor H&H -Consider GI consult if continue or worsening T2DM: A1c ordered Sliding scales and Accu-Chek while inpatient Goal to keep blood glucose ranging between 140-160 HTN: Troponin elevated Will allow permissive hypertension Treat if SBP above 220 for next 24 to 48 hours to allow for autoregulation Resume blood pressure medication when allowed No chest pain reported, will trend troponin and get EKG with any rhythm changes Elevated creatinine 1.01 at admission Continue monitor BMP in a.m. Transaminitis: ALT 133, AST 74 normal bilirubin and elevated alkaline phosphatase Consider fatty infiltration -Recommended follow-up with PCP outpatient to repeat liver function test and further evaluation - Likely on statin will be increased as well Total time spent: 70 minutes Time spent includes time reviewing chart, [id number]-[id number] time, counseling patient/family/caregiver, ordering medications/tests/procedures, communicating with other health managed care provider, documenting clinical information in the electronic health record, and coordination of care. VTE Prophylaxis: Pharmacologic & mechanical VTE prophylaxis orders are present. CODE STATUS: Code Status and Medical Interventions: CPR (Attempt to Resuscitate); Full Support Ordered at: 07/27/25 0024 Code Status (Patient has no pulse and is not breathing): CPR (Attempt to Resuscitate) Medical Interventions (Patient has pulse or is breathing): Full Support Level Of Support Discussed With: Patient Expected Discharge Expected discharge date/ time has not been documented. Michael Cano MD 07/26/2025 documented in this encounter Consult Notes * Lala Brower RN - 07/27/2025 11:39 AM EDTAssociated Order(s): IP CONSULT TO [employer] Diabetes Education Patient Name: Brynn Cox Date of : 1965 Admit Date: 07/26/2025 Consult for diabetes education received per stroke protocol. Chart reviewed. Pt was seen at [facility]. Permission given for visit. Pt reports she is established with endo provider, NOV with Dr. Garrett is August 22. Goes to these appts consistently. Wears Jovita 3 CGMS, takes mounjaro 7.5 weekly as well as basaglar BID- current dosing 40u QAM and 18 u QPM. Discussed and taught Ms Cox about type 2 diabetes self-management, risk factors, and importance of blood glucose control to reduce complications. Target blood glucose readings and A1c goals perADA were reviewed. Reviewed with patient current A1c 6.9 and discussed its significance. Provided verbal and written instructions on ADA survival skill concepts: Meal planning: Discussed pts current eating pattern and potential strategies to help improve it. Suggested ???the plate method?? as a potential healthy eating plan and reviewed this with pt. Pt states daryl has helped with weight loss and appetite/portion control. Safe medication administration: Reviewed pts current medication regimen. Encouraged pt to take medications as prescribed and contact provider or pharmacist if they are experiencing side effects. Monitoring (timing and technique): Encouraged pt to monitor blood sugar at home 4-5 times per day and to call PCP if blood sugar is trending high. Discussed benefits of SMBG/CGMS to help guide pt andprovider decision making. Encouraged to keep record of blood glucose readings to take to follow up appointment with PCP. Prevention and treatment of hypoglycemia and hyperglycemia: Signs, symptoms, and treatment of hypoglycemia and hyperglycemia discussed with pt. Reviewed prevention strategies such as consistent eating pattern and taking medications as directed. Pt is able to teach back appropriate treatment of hypoglycemia using the rule of 15s after receiving instruction. Pt has occasional lows, treats with 2% milk , cautioned against using this as treatment due to fat content, recommend skim or 1% milk. Sick day management: Reviewed general sick day guidelines with pt, including drinking plenty of water, keeping simple carbs handy such as jell-o or popsicles, checking blood glucose more often (every2-4 hours or as directed by provider), and if/when ketone testing is appropriate. Encouraged pt to make a sick-day kit at home. Physical activity: Reviewed benefits of physical activity for diabetes management and overall health. Encouraged pt to begin in 10 min increments to build up to recommended 150 minute per week after speaking with doctor about which activities may be right for them. Follow-up care: Reviewed importance of ongoing follow-up with provider. Reviewed importance of annual physical exams, annual eye exams, regular dental exams, daily foot examination, and encouraged patient to discuss immunization needs with provider. Pt encouraged to attend scheduled appointments. Provided information about outpatient diabetes education classes at [facility]. Provided patient with copy of [facility]'s Life with Diabetes handout. Thank you for this consult. Pt was scheduled for follow-up stroke class, but politely declines as she has follow-up with her endo regarding her diabetes in less than one month. Scheduled class was cancelled but pt encouraged toreach out to our outpatient office via provided ph# if further education desired. Total time spent reviewing chart, preparing education/materials, providing education at bedside, and coordinating care approx 40 minutes. Electronically signed by: Lala Brower RN, [facility] 07/27/25 11:40 EDT * Paul Bright, GAMALIEL - 07/26/2025 8:20 PM EDT Stroke Consult Note Patient Name: Brynn Cox Age: 60 y.o. Sex: female : 1965 Primary Care Physician: Araceli Doyle MD Referring Physician: Dr. Whatley TIME STROKE TEAM CALLED: 2019 EST TIME PATIENT SEEN: 2029 EST Handedness: Right Race: White Chief Complaint/Reason for Consultation: RFD, speech difficulty HPI: Ms. Cox is a 60-year-old female with PMH of HTN, HLD and T2DM. She presents to [facility] ED after a syncopal event. EMS also reports patient having right facial droop and speech difficulty. Patient states she has been babysitting her grandson this morning and was in her normal state of health up until today at 3 PM. Patient was using the restroom and straining to have a bowel movement prior to syncopal event. Upon standing up patient became lightheaded and dizzy, ultimately falling down the stairs. Patient woke up at the bottom of the stairs with a baby gate over top of her. Ms. Cox managed to crawl back upstairs to grab her grandson and then somehow got back downstairs. Her son came home and found his mother altered. Patient managed to use the restroom again and successfully had a bowel movement. EMS was notified and brought patient to [facility] ED for further evaluation of presenting symptoms. Initial NIH 1. Blood pressure 173/99. On exam patient is able to answer questions appropriately andfollow two-step commands. Denies any sensory deficits at this time. Mild expressive aphasia noted during conversation. Strength in all extremities 5/5. Non-smoker and no EtOH use. Takes prescribed medications routinely. Normal gait observed during short distance. Last Known Normal Date/Time: 07/26/2025 at 1500 EST Review of Systems Constitutional: Negative for fever. HENT: Negative for trouble swallowing and voice change. Eyes: Negative for visual disturbance. Respiratory: Negative for shortness of breath. Cardiovascular: Negative for chest pain. Gastrointestinal: Negative for abdominal pain and nausea. Neurological: Positive for dizziness, facial asymmetry, speech difficulty, light-headedness and headaches. Negative for weakness and numbness. Psychiatric/Behavioral: Negative for confusion. Past Medical History: Diagnosis Date Otitis media 04/20/2024 Past Surgical History: Procedure Laterality Date BREAST AUGMENTATION CHOLECYSTECTOMY TUBAL ABDOMINAL LIGATION Family History Problem Relation Age of Onset Diabetes Mother Coronary artery disease Mother Coronary artery disease Father Hypertension Father Diabetes Father Social History Socioeconomic History Marital status: Tobacco Use Smoking status: Never Passive exposure: Past Smokeless tobacco: Never Vaping Use Vaping status: Never Used Substance and Sexual Activity Alcohol use: Never Drug use: Never Sexual activity: Defer Allergies Allergen Reactions Codeine GI Intolerance Vomiting Sulfa Antibiotics GI Intolerance vomiting Prior to Admission medications Medication Sig Start Date End Date Taking? Authorizing Provider atorvastatin (LIPITOR) 80 MG tablet Take 1 tablet by mouth Daily. 04/27/23 Roberto Cm MD carvedilol (COREG) 25 MG tablet Take 1 tablet by mouth Every 12 (Twelve) Hours. 06/15/23 Roberto Cm MD Continuous Glucose Sensor (FreeStyle Jovita 3 Plus Sensor) Use as directed every 15 days 02/17/25 Katrina Garrett MD Continuous Glucose Sensor (FreeStyle Jovita 3 Sensor) misc Inject 1 each under the skin into the appropriate area as directed Every 14 (Fourteen) Days. 05/15/25 Katrina Garrett MD estradiol (VAGIFEM) 10 MCG tablet vaginal tablet Insert 1 tablet into the vagina 2 (Two) Times a Week. 04/03/25 Roberto Cm MD Farxiga 5 MG tablet tablet Take 1 tablet by mouth Daily. 07/19/25 Katrina Garrett MD Insulin Glargine (BASAGLAR KWIKPEN) 100 UNIT/ML injection pen Inject 48 Units under the skin into the appropriate area as directed Daily. 04/19/25 Katrina Garrett MD Insulin Lispro, 1 Unit Dial, (HumaLOG KwikPen) 100 UNIT/ML solution pen-injector For use at mealtimes and per correctional scale, MDD 50 units 04/19/25 Katrina Garrett MD lisinopril (PRINIVIL,ZESTRIL) 10 MG tablet Take 1 tablet by mouth Daily. 04/27/23 Roberto Cm MD Mounjaro 7.5 MG/0.5ML solution auto-injector Inject 7.5 mg under the skin into the appropriate areaas directed 1 (One) Time Per Week. 05/15/25 Katrina Garrett MD venlafaxine XR (EFFEXOR-XR) 75 MG 24 hr capsule Take 1 capsule by mouth Daily. 03/05/22 ProviderRoberto MD Temp: [97.9 ??F (36.6 ??C)] 97.9 ??F (36.6 ??C) Heart Rate: [93-101] 101 Resp: [18] 18 BP: (176-203)/(102-103) 203/102 Neurological Exam Mental Status Alert. Oriented to person, place and time. Oriented to person, place, and time. Speech is normal. Expressive aphasia present. Cranial Nerves CN II: Visual kline full to confrontation. CN III, IV, : Extraocular movements intact bilaterally. Pupils equal round and reactive to light bilaterally. CN V: Facial sensation is normal. CN VII: Full and symmetric facial movement. CN VIII: Hearing intact. CN XI: Shoulder shrug strength is normal. CN XII: Tongue midline without atrophy or fasciculations. Motor Normal muscle bulk throughout. Normal muscle tone. Strength is 5/5 throughout all four extremities. Sensory Light touch is normal in upper and lower extremities. Coordination Right: Fmiprt-sv-rbvm normal. Zvnj-rd-dexq normal.Left: Mkxiez-ek-ibfg normal. Egmw-pc-jhpb normal. Gait Casual gait is normal including stance, stride, and arm swing. Physical Exam Constitutional: General: She is not in acute distress. HENT: Head: Normocephalic and atraumatic. Nose: Nose normal. Mouth/Throat: Mouth: Mucous membranes are dry. Eyes: Extraocular Movements: Extraocular movements intact. Pupils: Pupils are equal, round, and reactive to light. Cardiovascular: Pulses: Normal pulses. Pulmonary: Effort: Pulmonary effort is normal. Abdominal: General: Abdomen is flat. Musculoskeletal: General: Normal range of motion. Cervical back: Normal range of motion. Skin: General: Skin is warm and dry. Neurological: Mental Status: She is alert and oriented to person, place, and time. Cranial Nerves: No cranial nerve deficit. Sensory: No sensory deficit. Motor: Motor strength is normal.No weakness. Coordination: Coordination normal. Psychiatric: Mood and Affect: Mood is anxious. Speech: Speech normal. Acute Stroke Data Thrombolytic Inclusion / Exclusion Criteria Time: 20:32 EDT Person Administering Scale: Paul Bright APRN YES NO INCLUSION CRITERIA CLASS I [x] [] Suspected diagnosis of acute ischemic stroke with measureable neurological deficit. Low NIHSS with disabling stroke symptoms. [] [x] Onset of stroke symptoms < 3 hours before beginning treatment >/ 18 years old Stroke symptom onset = time patient was last seen well or without symptoms (LKW) [] [x] Onset of symptoms between 3-4.5 hours: >/= 80 years old (safe Class IIa) with history of both diabetes and prior CVA (reasonable Class IIb) AND NIHSS </= 25 *If not eligible for IV Thrombolytic consider neuro intervention for LKW within 24 hours YES NO EXCLUSION CRITERIA (CONTRAINDICATIONS) CLASS III EVIDENCE HARM [] [] Blood pressure >185/110 medically refractory to IV medications [] [] Active bleeding at a non-compressible site [] [] Active intracranial hemorrhage (ICH) [] [] Symptoms suggestive of subarachnoid hemorrhage (SAH) [] [] GI bleed within 21 days [] [] Ischemic stroke within 3 months [] [] Severe head trauma within 3 months [] [] Intracranial or intraspinal surgery within 3 months [] [] Current GI malignancy [] [] Intracranial neoplasm [] [] Infective endocarditis [] [] Aortic arch dissection [] [] Active coagulopathy with INR >1.7, platelets <100,000, PTT > 40 sec, PT > 15 sec *For warfarin, administration can begin before blood tests resulted. Discontinue for above values. [] [] Treatment dose* of LMWH (Lovenox) in last 24 hours *prophylactic dosages are not a contraindication [] [] Concurrent use of antiplatelet agents' glycoprotein inhibitors IIb/IIIa (Integrilin, etc.) [] [] Thrombin or factor Xa inhibitors (Eliquis, Xarelto, Arixtra) taken in last 48 hours YES NO CLASS II: AIS WITH THE FOLLOWING CONDITIONS - TREATMENT RISKS SHOULD BE WEIGHED AGAINST POSSIBLE BENEFITS. [] [] Major trauma in last 14 days, recent major surgery in last 14 days, intracranial arterial dissection, giant unruptured and unsecured intracranial aneurysm, pericarditis [] [] The risks, benefits, and alternatives have been discussed with the patient or family related to the administration of IV thrombolytic therapy for stroke symptoms. [] [] I have discussed and reviewed the patient's case and imaging with the attending prior to IV thrombolytic therapy. TIME N/A Time IV thrombolytic administered Hospital Meds: Scheduled- sodium chloride, 1,000 mL, Intravenous, Once Infusions- PRNs- sodium chloride Functional Status Prior to Current Stroke/Jackson Score: MODIFIED YENI SCALE (to be assessed for each patient having history of stroke) []Stroke history but not assessed [x]0: No symptoms at all []1: No significant disability despite symptoms []2: Slight disability []3: Moderate disability []4: Moderately severe disability []5: Severe disability []6: NIH Stroke Scale Time: 20:32 EDT Person Administering Scale: Paul Bright APRN 1a Level of consciousness: 0=alert; keenly responsive 1b. LOC questions: 0=Answers both questions correctly 1c. LOC commands: 0=Performs both tasks correctly 2. Best Gaze: 0=normal 3. Visual: 0=No visual loss 4. Facial Palsy: 0=Normal symmetric movement 5a. Motor left arm: 0=No drift, limb holds 90 (or 45) degrees for full 10 seconds 5b. Motor right arm: 0=No drift, limb holds 90 (or 45) degrees for full 10 seconds 6a. motor left le=No drift, limb holds 90 (or 45) degrees for full 10 seconds 6b Motor right le=No drift, limb holds 90 (or 45) degrees for full 10 seconds 7. Limb Ataxia: 0=Absent 8. Sensory: 0=Normal; no sensory loss 9. Best Language: 1=Mild to moderate aphasia; some obvious loss of fluency or facility of comprehension without significant limitation on ideas expressed or form of expression. 10. Dysarthria: 0=Normal 11. Extinction and Inattention: 0=No abnormality Total: 1 Results Reviewed: I have personally reviewed current lab, radiology, and data and agree with results. Results for orders placed in visit on 10/01/23 Adult Transthoracic Echo Complete W/ Cont if Necessary Per Protocol 10/02/2023 9:55 PM Interpretation Summary Left ventricular systolic function is normal. Left ventricular ejection fraction appears to be 61 -65%. Left ventricular wall thickness is consistent with mild concentric hypertrophy. Left ventricular diastolic function is consistent with (grade I) impaired relaxation. No significant valvular regurgitation or stenosis present. The quality of the images are limited due to breast implants. WBC Date Value Ref Range Status 07/26/2025 7.98 3.40 - 10.80 10*3/mm3 Final RBC Date Value Ref Range Status 07/26/2025 3.98 3.77 - 5.28 10*6/mm3 Final Hemoglobin Date Value Ref Range Status 07/26/2025 12.2 12.0 - 15.9 g/dL Final Hematocrit Date Value Ref Range Status 07/26/2025 36.2 34.0 - 46.6 % Final MCV Date Value Ref Range Status 07/26/2025 91.0 79.0 - 97.0 fL Final MCH Date Value Ref Range Status 07/26/2025 30.7 26.6 - 33.0 pg Final MCHC Date Value Ref Range Status 07/26/2025 33.7 31.5 - 35.7 g/dL Final RDW Date Value Ref Range Status 07/26/2025 12.8 12.3 - 15.4 % Final RDW-SD Date Value Ref Range Status 07/26/2025 42.5 37.0 - 54.0 fl Final MPV Date Value Ref Range Status 07/26/2025 10.8 6.0 - 12.0 fL Final Platelets Date Value Ref Range Status 07/26/2025 218 140 - 450 10*3/mm3 Final Neutrophil % Date Value Ref Range Status 07/26/2025 68.6 42.7 - 76.0 % Final Lymphocyte % Date Value Ref Range Status 07/26/2025 25.2 19.6 - 45.3 % Final Monocyte % Date Value Ref Range Status 07/26/2025 5.6 5.0 - 12.0 % Final Eosinophil % Date Value Ref Range Status 07/26/2025 0.0 (L) 0.3 - 6.2 % Final Basophil % Date Value Ref Range Status 07/26/2025 0.1 0.0 - 1.5 % Final Immature Grans % Date Value Ref Range Status 07/26/2025 0.5 0.0 - 0.5 % Final Neutrophils, Absolute Date Value Ref Range Status 07/26/2025 5.47 1.70 - 7.00 10*3/mm3 Final Lymphocytes, Absolute Date Value Ref Range Status 07/26/2025 2.01 0.70 - 3.10 10*3/mm3 Final Monocytes, Absolute Date Value Ref Range Status 07/26/2025 0.45 0.10 - 0.90 10*3/mm3 Final Eosinophils, Absolute Date Value Ref Range Status 07/26/2025 0.00 0.00 - 0.40 10*3/mm3 Final Basophils, Absolute Date Value Ref Range Status 07/26/2025 0.01 0.00 - 0.20 10*3/mm3 Final Immature Grans, Absolute Date Value Ref Range Status 07/26/2025 0.04 0.00 - 0.05 10*3/mm3 Final nRBC Date Value Ref Range Status 07/26/2025 0.0 0.0 - 0.2 /100 WBC Final Lab Results Component Value Date GLUCOSE 236 (H) 07/26/2025 BUN 21.8 07/26/2025 CREATININE 1.02 (H) 07/26/2025 NA 136 07/26/2025 K 4.2 07/26/2025 CL 100 07/26/2025 CALCIUM 9.2 07/26/2025 PROTEINTOT 6.8 07/26/2025 ALBUMIN 4.2 07/26/2025 ALT 133 (H) 07/26/2025 AST 74 (H) 07/26/2025 ALKPHOS 157 (H) 07/26/2025 BILITOT 0.4 07/26/2025 GLOB 2.6 07/26/2025 AGRATIO 1.6 07/26/2025 BCR 21.4 07/26/2025 ANIONGAP 11.0 07/26/2025 EGFR 62.3 07/26/2025 CT CEREBRAL PERFUSION WITH & WITHOUT CONTRAST Result Date: 07/26/2025 1. Area of suggested ischemic brain at risk involving the left MCA territory without core infarction. Electronically Signed: Saturnino Macdonald MD 07/26/2025 9:07 PM EDT Workstation ID: [id number] DxDesc CT Angiogram Head Result Date: 07/26/2025 Impression: 1.Occlusion of the supraclinoid left internal carotid artery with minimal opacificationof the cavernous and petrous segments. Left anterior cerebral and middle cerebral arteries are supplied by a patent anterior communicating artery. 2.High-grade stenosis of the supraclinoid right internal carotid artery. 3.No evidence of intracranial aneurysm. Electronically Signed: Guille Miller MD 07/26/2025 7:59 PM EDT Workstation ID: [id number] CT Angiogram Neck Result Date: 07/26/2025 Impression: 1.Occlusion of the supraclinoid left internal carotid artery with minimal opacificationof the cavernous and petrous segments. Left anterior cerebral and middle cerebral arteries are supplied by a patent anterior communicating artery. 2.High-grade stenosis of the supraclinoid right internal carotid artery. 3.No evidence of intracranial aneurysm. Electronically Signed: Guille Miller MD 07/26/2025 7:59 PM EDT Workstation ID: [id number] CT Head Without Contrast Result Date: 07/26/2025 Impression: No acute intracranial findings. Electronically Signed: Saturnino Macdonald MD 07/26/2025 7:48 PM EDT Workstation ID: [id number] Assessment/Plan: Ms. Cox is a 60-year-old female with PMH of HTN, HLD and T2DM. She presents to [facility] ED after asyncopal event. EMS also reports patient having right facial droop and speech difficulty. Patient states she has been babysitting her grandson this morning and was in her normal state of health up until today at 3 PM. Patient was using the restroom and straining to have a bowel movement prior to syncopal event. Upon standing up patient became lightheaded and dizzy, ultimately falling down the stairs. Patient woke up at the bottom of the stairs with a baby gate over top of her. Ms. Cox managed to crawl back upstairs to grab her grandson and then somehow got back downstairs. Her son came home and found his mother altered. Patient managed to use the restroom again and successfully had a bowel movement. EMS was notified and brought patient to [facility] ED for further evaluation of presenting symptoms. Patient is not a candidate for IV thrombolytic therapy due to last known well greater than4.5 hours. Patient is not a candidate for endovascular therapy due to no LVO noted on CT scans. Antiplatelet SENIOR IOS DEVELOPER: None Anticoagulant SENIOR IOS DEVELOPER: None RFD, speech difficulty Differentials to include TIA, CVA, syncopal episode Initiate TIA/CVA without IV thrombolytic therapy order set N.p.o. until bedside dysphagia screening complete by RN Activity as tolerated Aspirin 81 mg p.o. daily Plavix 300 mg p.o. x 1 and then Plavix 75 mg p.o. daily Statin on hold due to elevated liver enzymes MRI brain without contrast routine TTE routine Carotid ultrasound in a.m. A1C, lipid panel routine Neurochecks per unit protocol Blood pressure goals, SBP less than 220 nursing educator to see if appropriate PT/OT/BOILERMAKER FITTER eval and treat Case Management to follow Plan of care discussed with ER team, Dr. Blakely, patient, family at bedside and primary RN. Stroke neurology will continue to follow. Thank you for this consult. Call with any questions or concerns. Paul Bright APRN July 26, 2025 20:32 EDT documented in this encounter Nursing Notes * Niki Goodwin, CCC-BOILERMAKER FITTER - 07/27/2025 2:04 PM EDT Goal Outcome Evaluation: Anticipated Discharge Disposition (BOILERMAKER FITTER): home BOILERMAKER FITTER Diagnosis: functional speech/language skills, mild, baseline, cognitive- linguistic disorder (07/27/25 1025) * Radha Fitch, PT - 07/27/2025 9:10 AM EDT Goal Outcome Evaluation: Plan of Care Reviewed With: patient, spouse Outcome Evaluation: Pt at baseline for functional mobility tasks. No deficits identified requiring PT services. Rec home upon dc when medically appropriate. Anticipated Discharge Disposition (PT): home * Hu Pedroza OT - 07/27/2025 9:06 AM EDT Goal Outcome Evaluation: Plan of Care Reviewed With: patient Progress: no change Outcome Evaluation: Pt presents at baseline for ADL completion with symmetrical BUE strength and coordination/sensation intact. OT signing off, please reconsult if needed. Rec d/c to home when medically appropriate. * Gage Cox RN - 07/27/2025 1:50 AM EDT Goal Outcome Evaluation: Plan of Care Reviewed With: patient, spouse No falls injury this shift documented in this encounter ED Notes * Heron Whatley DO - 07/26/2025 7:21 PM EDT Subjective History of Present Illness Patient is a pleasant 60-year-old female presents to the emergency department following a syncopal event, fall downstairs, and questionable facial droop and word finding difficulties. Patient states that she was at home babysitting her grandchild. She got the urge to have a bowel movement but despite sitting on the toilet and straining she was unsuccessful in having the bowel movement. She started to feel slightly lightheaded after coming out of the bathroom and while walking down the stairs experienced a syncopal event. She does not actually remember rolling down the stairs but woke up at the bottom of the stairs and the gate, the child gate, and it was at the top of the stairs had come down with her. She states that when she would try to sit up after waking up lying on the floor she would again become lightheaded. She would lie down flat the lightheadedness would improve. Ultimately she was too weak and lightheaded to stand up. Her 1-year-old grandchild was on the second floor and when she was able to she was able to crawl up the stairs to be back with the grandchild. She continued to be lightheaded and diaphoretic. Fortunately, patient's son arrived home very shortly thereafterpatient was able to go back down the stairs. She is unsure whether she walked or crawled back down the stairs but was able to open the front door for him which time she laid back down. Eventually shewas able to get back to the bathroom and did have a large bowel movement. EMS was called. All in all she suspects that this diaphoretic and lightheaded episode lasted about 20 minutes. Denies chest pain or palpitations during the event. Patient is diabetic but has a continuous glucose monitor and had no low readings. Blood glucose has been just over 200 here in the emergency department and prior to arrival. EMS notes upon their arrival that she did not have right facial droop and some word finding difficulties. Patient denies similar episodes to this in the past. No history of vasovagal syncope. Prior to the event tonight denies fever, chills, chest pain, shortness of breath, abdominal pain, vomiting, or other acute complaints. Surprisingly, denies injuries or pain from the fall down the stairs. Review of Systems All other systems reviewed and are negative. Past Medical History: Diagnosis Date Otitis media 04/20/2024 Allergies Allergen Reactions Codeine GI Intolerance Vomiting Sulfa Antibiotics GI Intolerance vomiting Past Surgical History: Procedure Laterality Date BREAST AUGMENTATION CHOLECYSTECTOMY TUBAL ABDOMINAL LIGATION Family History Problem Relation Age of Onset Diabetes Mother Coronary artery disease Mother Coronary artery disease Father Hypertension Father Diabetes Father Social History Socioeconomic History Marital status: Tobacco Use Smoking status: Never Passive exposure: Past Smokeless tobacco: Never Vaping Use Vaping status: Never Used Substance and Sexual Activity Alcohol use: Never Drug use: Never Sexual activity: Defer Objective Physical Exam Vitals and nursing note reviewed. Constitutional: Appearance: Normal appearance. HENT: Head: Normocephalic. Mouth/Throat: Mouth: Mucous membranes are moist. Eyes: Extraocular Movements: Extraocular movements intact. Pupils: Pupils are equal, round, and reactive to light. Cardiovascular: Rate and Rhythm: Normal rate and regular rhythm. Pulses: Normal pulses. Heart sounds: Normal heart sounds. Pulmonary: Effort: Pulmonary effort is normal. Breath sounds: Normal breath sounds. Abdominal: General: Bowel sounds are normal. Palpations: Abdomen is soft. Musculoskeletal: General: Normal range of motion. Cervical back: Normal range of motion. Comments: Surprisingly, I do not appreciate contusions or obvious injury from the fall. Skin: General: Skin is warm and dry. Capillary Refill: Capillary refill takes less than 2 seconds. Neurological: General: No focal deficit present. Mental Status: She is alert and oriented to person, place, and time. Psychiatric: Mood and Affect: Mood is anxious. Behavior: Behavior normal. Thought Content: Thought content normal. Procedures ED Course Recent Results (from the past 24 hours) Comprehensive Metabolic Panel Collection Time: 07/26/25 6:13 PM Specimen: Blood Result Value Ref Range Glucose 236 (H) 65 - 99 mg/dL BUN 21.8 8.0 - 23.0 mg/dL Creatinine 1.02 (H) 0.57 - 1.00 mg/dL Sodium 136 136 - 145 mmol/L Potassium 4.2 3.5 - 5.2 mmol/L Chloride 100 98 - 107 mmol/L CO2 25.0 22.0 - 29.0 mmol/L Calcium 9.2 8.6 - 10.5 mg/dL Total Protein 6.8 6.0 - 8.5 g/dL Albumin 4.2 3.5 - 5.2 g/dL ALT (SGPT) 133 (H) 1 - 33 U/L AST (SGOT) 74 (H) 1 - 32 U/L Alkaline Phosphatase 157 (H) 39 - 117 U/L Total Bilirubin 0.4 0.0 - 1.2 mg/dL Globulin 2.6 gm/dL A/G Ratio 1.6 g/dL BUN/Creatinine Ratio 21.4 7.0 - 25.0 Anion Gap 11.0 5.0 - 15.0 mmol/L eGFR 62.3 >60.0 mL/min/1.73 Magnesium Collection Time: 07/26/25 6:13 PM Specimen: Blood Result Value Ref Range Magnesium 2.2 1.6 - 2.4 mg/dL High Sensitivity Troponin T Collection Time: 07/26/25 6:13 PM Specimen: Blood Result Value Ref Range HS Troponin T 20 (H) <14 ng/L Green Top (Gel) Collection Time: 07/26/25 6:13 PM Result Value Ref Range Extra Tube Hold for add-ons. Lavender Top Collection Time: 07/26/25 6:13 PM Result Value Ref Range Extra Tube hold for add-on Gold Top - SST Collection Time: 07/26/25 6:13 PM Result Value Ref Range Extra Tube Hold for add-ons. Vasques Top Collection Time: 07/26/25 6:13 PM Result Value Ref Range Extra Tube Hold for add-ons. Light Blue Top Collection Time: 07/26/25 6:13 PM Result Value Ref Range Extra Tube Hold for add-ons. CBC Auto Differential Collection Time: 07/26/25 6:13 PM Specimen: Blood Result Value Ref Range WBC 7.98 3.40 - 10.80 10*3/mm3 RBC 3.98 3.77 - 5.28 10*6/mm3 Hemoglobin 12.2 12.0 - 15.9 g/dL Hematocrit 36.2 34.0 - 46.6 % MCV 91.0 79.0 - 97.0 fL MCH 30.7 26.6 - 33.0 pg MCHC 33.7 31.5 - 35.7 g/dL RDW 12.8 12.3 - 15.4 % RDW-SD 42.5 37.0 - 54.0 fl MPV 10.8 6.0 - 12.0 fL Platelets 218 140 - 450 10*3/mm3 Neutrophil % 68.6 42.7 - 76.0 % Lymphocyte % 25.2 19.6 - 45.3 % Monocyte % 5.6 5.0 - 12.0 % Eosinophil % 0.0 (L) 0.3 - 6.2 % Basophil % 0.1 0.0 - 1.5 % Immature Grans % 0.5 0.0 - 0.5 % Neutrophils, Absolute 5.47 1.70 - 7.00 10*3/mm3 Lymphocytes, Absolute 2.01 0.70 - 3.10 10*3/mm3 Monocytes, Absolute 0.45 0.10 - 0.90 10*3/mm3 Eosinophils, Absolute 0.00 0.00 - 0.40 10*3/mm3 Basophils, Absolute 0.01 0.00 - 0.20 10*3/mm3 Immature Grans, Absolute 0.04 0.00 - 0.05 10*3/mm3 nRBC 0.0 0.0 - 0.2 /100 WBC Urinalysis With Culture If Indicated - Urine, Clean Catch Collection Time: 07/26/25 6:27 PM Specimen: Urine, Clean Catch Result Value Ref Range Color, UA Dark Yellow (A) Yellow, Straw Appearance, UA Clear Clear pH, UA 6.5 5.0 - 8.0 Specific [place], UA 1.019 1.005 - 1.030 Glucose, UA 100 mg/dL (Trace) (A) Negative Ketones, UA Trace (A) Negative Bilirubin, UA Small (1+) (A) Negative Blood, UA Negative Negative Protein, UA >=300 mg/dL (3+) (A) Negative Leuk Esterase, UA Small (1+) (A) Negative Nitrite, UA Negative Negative Urobilinogen, UA 1.0 E.U./dL 0.2 - 1.0 E.U./dL Urinalysis, Microscopic Only - Urine, Clean Catch Collection Time: 07/26/25 6:27 PM Specimen: Urine, Clean Catch Result Value Ref Range RBC, UA 0-2 None Seen, 0-2 /HPF WBC, UA 0-2 None Seen, 0-2 /HPF Bacteria, UA Trace (A) None Seen /HPF Squamous Epithelial Cells, UA 3-6 (A) None Seen, 0-2 /HPF Hyaline Casts, UA 3-6 None Seen /LPF Methodology Automated Microscopy ECG 12 Lead Other; syncope Collection Time: 07/26/25 6:41 PM Result Value Ref Range QT Interval 344 ms QTC Interval 432 ms High Sensitivity Troponin T 1Hr Collection Time: 07/26/25 8:06 PM Specimen: Blood Result Value Ref Range HS Troponin T 20 (H) <14 ng/L Troponin T Numeric Delta 0 ng/L Troponin T % Delta 0 Abnormal if >/= 20% TSH Rfx On Abnormal To Free T4 Collection Time: 07/26/25 8:06 PM Specimen: Blood Result Value Ref Range TSH 2.090 0.270 - 4.200 uIU/mL POC Glucose Once Collection Time: 07/26/25 9:34 PM Specimen: Blood Result Value Ref Range Glucose 178 (H) 70 - 130 mg/dL POC Glucose Once Collection Time: 07/27/25 5:22 AM Specimen: Blood Result Value Ref Range Glucose 101 70 - 130 mg/dL Duplex Carotid Ultrasound CAR Collection Time: 07/27/25 8:06 AM Result Value Ref Range Prox CCA PSV 95.8 cm/sec Prox CCA EDV 29.2 cm/sec Right Mid CCA PSV 63.5 cm/sec right Mid CCA EDV 17.9 cm/sec Dist CCA PSV 57.9 cm/sec Dist CCA EDV 14.3 cm/sec Prox ICA PSV 61.0 cm/sec Prox ICA EDV 25.6 cm/sec Mid ICA PSV 76.5 cm/sec Mid ICA EDV 42.1 cm/sec Dist ICA PSV 134.6 cm/sec Dist ICA EDV 61.2 cm/sec Prox ECA PSV 152.3 cm/sec Prox ECA EDV 19.0 cm/sec Vertebral A PSV 52.9 cm/sec Vertebral A EDV 16.0 cm/sec Prox CCA PSV 70.8 cm/sec Prox CCA EDV 6.0 cm/sec left Mid CCA PSV 84.5 cm/sec left Mid CCA EDV 8.3 cm/sec Dist CCA PSV 63.1 cm/sec Dist CCA EDV 6.7 cm/sec Prox ICA PSV 55.3 cm/sec Prox ICA EDV 2.38 cm/sec Mid ICA PSV 61.1 cm/sec Mid ICA EDV 61.1 cm/sec Dist ICA PSV 65.9 cm/sec Dist ICA EDV 65.9 cm/sec Prox ECA PSV 119.0 cm/sec Prox ECA EDV 14.3 cm/sec Vertebral A PSV 65.9 cm/sec Vertebral A EDV 20.2 cm/sec Prox SCLA PSV 197.6 cm/sec Prox SCLA PSV 181.3 cm/sec ICA/CCA ratio 1.32 ICA/CCA ratio 0.97 CBC Auto Differential Collection Time: 07/27/25 9:02 AM Specimen: Blood Result Value Ref Range WBC 11.73 (H) 3.40 - 10.80 10*3/mm3 RBC 3.75 (L) 3.77 - 5.28 10*6/mm3 Hemoglobin 11.9 (L) 12.0 - 15.9 g/dL Hematocrit 37.3 34.0 - 46.6 % MCV 99.5 (H) 79.0 - 97.0 fL MCH 31.7 26.6 - 33.0 pg MCHC 31.9 31.5 - 35.7 g/dL RDW 12.8 12.3 - 15.4 % RDW-SD 46.6 37.0 - 54.0 fl MPV 10.2 6.0 - 12.0 fL Platelets 193 140 - 450 10*3/mm3 Neutrophil % 76.5 (H) 42.7 - 76.0 % Lymphocyte % 14.5 (L) 19.6 - 45.3 % Monocyte % 8.4 5.0 - 12.0 % Eosinophil % 0.0 (L) 0.3 - 6.2 % Basophil % 0.2 0.0 - 1.5 % Immature Grans % 0.4 0.0 - 0.5 % Neutrophils, Absolute 8.97 (H) 1.70 - 7.00 10*3/mm3 Lymphocytes, Absolute 1.70 0.70 - 3.10 10*3/mm3 Monocytes, Absolute 0.99 (H) 0.10 - 0.90 10*3/mm3 Eosinophils, Absolute 0.00 0.00 - 0.40 10*3/mm3 Basophils, Absolute 0.02 0.00 - 0.20 10*3/mm3 Immature Grans, Absolute 0.05 0.00 - 0.05 10*3/mm3 nRBC 0.0 0.0 - 0.2 /100 WBC Comprehensive Metabolic Panel Collection Time: 07/27/25 9:02 AM Specimen: Blood Result Value Ref Range Glucose 78 65 - 99 mg/dL BUN 17.2 8.0 - 23.0 mg/dL Creatinine 0.88 0.57 - 1.00 mg/dL Sodium 138 136 - 145 mmol/L Potassium 3.8 3.5 - 5.2 mmol/L Chloride 104 98 - 107 mmol/L CO2 20.1 (L) 22.0 - 29.0 mmol/L Calcium 8.7 8.6 - 10.5 mg/dL Total Protein 6.1 6.0 - 8.5 g/dL Albumin 3.5 3.5 - 5.2 g/dL ALT (SGPT) 237 (H) 1 - 33 U/L AST (SGOT) 127 (H) 1 - 32 U/L Alkaline Phosphatase 123 (H) 39 - 117 U/L Total Bilirubin 0.8 0.0 - 1.2 mg/dL Globulin 2.6 gm/dL A/G Ratio 1.3 g/dL BUN/Creatinine Ratio 19.5 7.0 - 25.0 Anion Gap 13.9 5.0 - 15.0 mmol/L eGFR 74.4 >60.0 mL/min/1.73 Hemoglobin A1c Collection Time: 07/27/25 9:02 AM Specimen: Blood Result Value Ref Range Hemoglobin A1C 6.91 (H) 4.80 - 5.60 % Lipid Panel Collection Time: 07/27/25 9:02 AM Specimen: Blood Result Value Ref Range Total Cholesterol 133 0 - 200 mg/dL Triglycerides 114 0 - 150 mg/dL HDL Cholesterol 30 (L) 40 - 60 mg/dL LDL Cholesterol 82 0 - 100 mg/dL VLDL Cholesterol 21 5 - 40 mg/dL LDL/HDL Ratio 2.67 High Sensitivity Troponin T Collection Time: 07/27/25 9:02 AM Specimen: Blood Result Value Ref Range HS Troponin T 27 (H) <14 ng/L POC Glucose Once Collection Time: 07/27/25 9:24 AM Specimen: Blood Result Value Ref Range Glucose 76 70 - 130 mg/dL Adult Transthoracic Echo Complete W/ Cont if Necessary Per Protocol (With Agitated Saline) Collection Time: 07/27/25 10:49 AM Result Value Ref Range LVIDd 4.1 cm LVIDs 2.8 cm IVSd 1.00 cm LVPWd 1.00 cm IVS/LVPW 1.00 cm LVOT area 3.1 cm2 LVOT diam 2.00 cm SVi (LVOT) 31.6 ml/m2 MV E max karson 56.0 cm/sec MV A max karson 117.0 cm/sec MV E/A 0.48 IVRT 67.0 ms SV(LVOT) 58.7 ml RV Base 2.28 cm RV Mid 2.24 cm RV Length 7.2 cm LA dimension (2D) 3.0 cm LV V1 max 105.0 cm/sec LV V1 max PG 4.4 mmHg LV V1 mean PG 2.00 mmHg LV V1 VTI 18.7 cm Ao pk karson 117.7 cm/sec Ao max PG 5.5 mmHg Ao mean PG 3.0 mmHg Ao V2 VTI 23.1 cm LASHAE(I,D) 2.5 cm2 Dimensionless Index 0.81 (DI) MV max PG 6.1 mmHg MV mean PG 2.30 mmHg MV V2 VTI 18.4 cm MVA(VTI) 3.2 cm2 PA V2 max 92.0 cm/sec PA acc time 0.09 sec PI end-d karson 102.7 cm/sec Ao root diam 3.6 cm Ascending aorta 3.6 cm BH CV ECHO SHUNT ASSESSMENT PERFORMED (HIDDEN SCRIPTING) 1 Note: In addition to lab results from this visit, the labs listed above may include labs taken at another facility or during a different encounter within the last 24 hours. Please correlate lab timeswith ED admission and discharge times for further clarification of the services performed during this visit. MRI Brain Without Contrast Final Result Impression: Small patchy areas of diffusion restriction seen within the subcortical white matter of the left frontal and parietal lobes with very minimal if any corresponding decreased signal on the ADC map. Findings likely related to subacute infarcts or the sequela of previous infarcts. No evidence of hemorrhage, mass effect or midline shift. Electronically Signed: Lucila Elliott MD 07/26/2025 11:08 PM EDT Workstation ID: [id number] DxDesc CT CEREBRAL PERFUSION WITH & WITHOUT CONTRAST Final Result 1. Area of suggested ischemic brain at risk involving the left MCA territory without core infarction. Electronically Signed: Saturnino Macdonald MD 07/26/2025 9:07 PM EDT Workstation ID: [id number] Head Without Contrast Final Result Impression: No acute intracranial findings. 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 Left anterior cerebral and middle cerebral arteries are supplied by a patent anterior communicating artery. 2.High-grade stenosis of the supraclinoid right internal carotid artery. 3.No evidence of intracranial aneurysm. 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 Left anterior cerebral and middle cerebral arteries are supplied by a patent anterior communicating artery. 2.High-grade stenosis of the supraclinoid right internal carotid artery. 3.No evidence of intracranial aneurysm. Electronically Signed: Guille Miller MD 07/26/2025 7:59 PM EDT Workstation ID: [id number] Vitals: 07/27/25 0015 07/27/25 0022 07/27/25 0649 07/27/25 1048 BP: 124/54 118/70 BP Location: Left arm Left arm Patient Position: Lying Lying Pulse: 103 Resp: 20 18 Temp: 98.1 ??F (36.7 ??C) TempSrc: Oral SpO2: 98% Weight: 76.5 kg (168 lb 9.6 oz) 76.2 kg (168 lb) Height: 167.6 cm (66 ) Medications sodium chloride 0.9 % flush 10 mL (has no administration in time range) sodium chloride 0.9 % flush 10 mL ( Intravenous Canceled Entry 07/27/25 0217) sodium chloride 0.9 % flush 10 mL (has no administration in time range) sodium chloride 0.9 % infusion 40 mL (has no administration in time range) aspirin chewable tablet 81 mg (81 mg Oral Given 07/27/25 0113) clopidogrel (PLAVIX) tablet 75 mg (has no administration in time range) sodium chloride 0.9 % flush 10 mL (10 mL Intravenous Given 07/27/25 1021) sodium chloride 0.9 % flush 10 mL (has no administration in time range) sodium chloride 0.9 % infusion 40 mL (has no administration in time range) dextrose (GLUTOSE) oral gel 15 g (has no administration in time range) dextrose (D50W) (25 g/50 mL) IV injection 25 g (has no administration in time range) glucagon (GLUCAGEN) injection 1 mg (has no administration in time range) Insulin Lispro (humaLOG) injection 2-7 Units ( Subcutaneous Not Given 07/27/25 0926) heparin (porcine) 5000 UNIT/ML injection 5,000 Units (5,000 Units Subcutaneous Given 07/27/25 1024) nitroglycerin (NITROSTAT) SL tablet 0.4 mg (has no administration in time range) lactated ringers infusion (75 mL/hr Intravenous New Bag 07/27/25 0114) Potassium Replacement - Follow Nurse / BPA Driven Protocol (has no administration in time range) Magnesium Standard Dose Replacement - Follow Nurse / BPA Driven Protocol (has no administration in time range) Phosphorus Replacement - Follow Nurse / BPA Driven Protocol (has no administration in time range) Calcium Replacement - Follow Nurse / BPA Driven Protocol (has no administration in time range) acetaminophen (TYLENOL) tablet 650 mg (has no administration in time range) Or acetaminophen (TYLENOL) 160 MG/5ML oral solution 650 mg (has no administration in time range) Or acetaminophen (TYLENOL) suppository 650 mg (has no administration in time range) sennosides-docusate (PERICOLACE) 8.6-50 MG per tablet 2 tablet (has no administration in time range) And polyethylene glycol (MIRALAX) packet 17 g (has no administration in time range) And bisacodyl (DULCOLAX) EC tablet 5 mg (has no administration in time range) And bisacodyl (DULCOLAX) suppository 10 mg (has no administration in time range) ondansetron (ZOFRAN) injection 4 mg (has no administration in time range) famotidine (PEPCID) tablet 40 mg (40 mg Oral Given 07/27/25 1023) sodium chloride 0.9 % bolus 1,000 mL (0 mL Intravenous Stopped 07/26/252115) iopamidol (ISOVUE-370) 76 % injection 100 mL (90 mL Intravenous Given 07/26/251926) iopamidol (ISOVUE-370) 76 % injection 40 mL (40 mL Intravenous Given 07/26/252058) clopidogrel (PLAVIX) tablet 300 mg (300 mg Oral Given 07/27/25112) ECG/EMG Results (last 24 hours) Procedure Component Value Units Date/Time Telemetry Scan [[id number]] Resulted: 07/26/252009 Updated: 07/26/252019 ECG 12 Lead Other; syncope [[id number]] Collected: 07/26/251840 Updated: 07/27/25657 QT Interval 344 ms QTC Interval 432 ms Narrative: Test Reason : Other~ Blood Pressure : */* mmHG Vent. Rate : 95 BPM Atrial Rate : 95 BPM P-R Int : 138 ms QRS Dur : 70 ms QT Int : 344 ms P-R-T Axes : 10 43 -35 degrees QTcB Int : 432 ms Normal sinus rhythm Marked ST abnormality, possible lateral subendocardial injury Abnormal ECG No previous ECGs available Referred By: Confirmed By: Adult Transthoracic Echo Complete W/ Cont if Necessary Per Protocol (With Agitated Saline) - In process [[id number]] Resulted: 07/27/251105 Updated: 07/27/251105 This result has not been signed. Information might be incomplete. LVIDd 4.1 cm LVIDs 2.8 cm IVSd 1.00 cm LVPWd 1.00 cm IVS/LVPW 1.00 cm LVOT area 3.1 cm2 LVOT diam 2.00 cm SVi (LVOT) 31.6 ml/m2 MV E max karson 56.0 cm/sec MV A max karson 117.0 cm/sec MV E/A 0.48 IVRT 67.0 ms SV(LVOT) 58.7 ml RV Base 2.28 cm RV Mid 2.24 cm RV Length 7.2 cm LA dimension (2D) 3.0 cm LV V1 max 105.0 cm/sec LV V1 max PG 4.4 mmHg LV V1 mean PG 2.00 mmHg LV V1 VTI 18.7 cm Ao pk karson 117.7 cm/sec Ao max PG 5.5 mmHg Ao mean PG 3.0 mmHg Ao V2 VTI 23.1 cm LASHAE(I,D) 2.5 cm2 Dimensionless Index 0.81 (DI) MV max PG 6.1 mmHg MV mean PG 2.30 mmHg MV V2 VTI 18.4 cm MVA(VTI) 3.2 cm2 PA V2 max 92.0 cm/sec PA acc time 0.09 sec PI end-d karson 102.7 cm/sec Ao root diam 3.6 cm Ascending aorta 3.6 cm BH CV ECHO SHUNT ASSESSMENT PERFORMED (HIDDEN SCRIPTING) 1 Telemetry Scan Final Result ECG 12 Lead Other; syncope Preliminary Result Test Reason : Other~ Blood Pressure : */* mmHG Vent. Rate : 95 BPM Atrial Rate : 95 BPM P-R Int : 138 ms QRS Dur : 70 ms QT Int : 344 ms P-R-T Axes : 10 43 -35 degrees QTcB Int : 432 ms Normal sinus rhythm Marked ST abnormality, possible lateral subendocardial injury Abnormal ECG No previous ECGs available Referred By: Confirmed By: ECG 12 Lead Other; syncope (Results Pending) ECG 12 Lead Tachycardia (Results Pending) Total (NIH Stroke Scale): 0 Medical Decision Making Problems Addressed: Elevated troponin: complicated acute illness or injury Fall down stairs, initial encounter: complicated acute illness or injury Hyperglycemia: complicated acute illness or injury Ketonuria: complicated acute illness or injury Renal insufficiency: complicated acute illness or injury Stenosis of both internal carotid arteries: complicated acute illness or injury Syncope and collapse: complicated acute illness or injury Amount and/or Complexity of Data Reviewed External Data Reviewed: notes. Labs: ordered. Decision-making details documented in ED Course. Radiology: ordered and independent interpretation performed. Decision-making details documented in ED Course. ECG/medicine tests: ordered and independent interpretation performed. Decision- making details documented in ED Course. Risk Prescription drug management. Decision regarding hospitalization. Final diagnoses: Syncope and collapse Fall down stairs, initial encounter Stenosis of both internal carotid arteries Hyperglycemia Ketonuria Renal insufficiency Elevated troponin ED Disposition ED Disposition ED Disposition Decision to Admit Condition -- Comment Level of Care: Telemetry [5] Diagnosis: Facial droop [[id number]] Admitting Physician: MICHAEL CANO [[id number]] Attending Physician: MICHAEL CANO [[id number]] Is patient appropriate for Inpatient Observation Unit?: Yes [1] Heron Whatley DO 07/27/25 1112 documented in this encounter Miscellaneous Notes * Therapy Evaluation - Niki Goodwin, MS SHYLA-BOILERMAKER FITTER - 07/27/2025 2:04 PM EDT Images from the original note were not included. Acute Care - Speech Language Pathology Initial Evaluation [facility] Cognitive-Communication Evaluation Patient Name: Brynn Cox : 1965 Today's Date: 07/27/2025 Admit Date: 07/26/2025 Visit Dx: ICD-10-CM ICD-9-CM 1. Syncope and collapse R55 780.2 2. Fall down stairs, initial encounter W10.8XXA E880.9 3. Stenosis of both internal carotid arteries I65.23 433.10 433.30 4. Hyperglycemia R73.9 790.29 5. Ketonuria R82.4 791.6 6. Renal insufficiency N28.9 593.9 7. Elevated troponin R79.89 790.6 8. Transient ischemic attack (TIA) G45.9 435.9 Patient Active Problem List Diagnosis Diabetes type 2, uncontrolled Type 2 diabetes mellitus with hyperlipidemia Breast implant rupture Breast implant status Calculus of gallbladder without cholecystitis without obstruction Elevated LFTs Episode of recurrent major depressive disorder Essential hypertension Menopausal hot flushes Microalbuminuric diabetic nephropathy Mixed hyperlipidemia Toenail fungus Type 2 diabetes mellitus with hyperglycemia Vitamin D deficiency Insomnia Hypersomnia Fatigue Family history of early CAD Facial droop Transient ischemic attack (TIA) Past Medical History: Diagnosis Date Otitis media 04/20/2024 Past Surgical History: Procedure Laterality Date BREAST AUGMENTATION CHOLECYSTECTOMY TUBAL ABDOMINAL LIGATION BOILERMAKER FITTER Recommendation and Plan Recommended discharge disposition is based on the functional assessment performed by PT/OT/Speech therapy (as applicable) and may not reflect the medical necessity determined by your provider or services covered by an individual patient's insurance plan or patient resource. BOILERMAKER FITTER Diagnosis: functional speech/language skills, mild, baseline, cognitive- linguistic disorder (07/27/25 102) [facility] Criteria for Skilled Therapy Interventions Met: baseline status (07/27/25 102) Anticipated Discharge Disposition (BOILERMAKER FITTER): home (07/27/25 102) Therapy Frequency (BOILERMAKER FITTER SLC): evaluation only (07/27/25 102) BOILERMAKER FITTER EVALUATION (Last 72 Hours) BOILERMAKER FITTER SLC Evaluation Row Name 07/27/251024 Communication Assessment/Intervention Document Type evaluation - Subjective Information no complaints - Patient Observations alert;cooperative - Patient/Family/Caregiver Comments/Observations family present - Patient Effort good - Symptoms Noted During/After Treatment none - General Information Patient Profile Reviewed yes - Pertinent History Of Current Problem Adm following syncopal episode & ? Facial droop; which hassince resolved. Hx: HTN, HLD and T2DM. MRI w/ patchy areas of diffusion restriction within subcortical white matter of L frontal and parietal lobes - Precautions/Limitations, Vision WFL;for purposes of eval - Precautions/Limitations, Hearing WFL;for purposes of eval - Prior Level of Function-Communication unknown - Plans/Goals Discussed with patient;spouse/S.O.;agreed upon - Barriers to Rehab none identified - Patient's Goals for Discharge patient did not state - Family Goals for Discharge family did not state - Pain Additional Documentation Pain Scale: FACES Pre/Post-Treatment (Group) - Pain Scale: FACES Pre/Post-Treatment Pain: FACES Scale, Pretreatment 0-->no hurt - Posttreatment Pain Rating 0-->no hurt - Comprehension Assessment/Intervention Comprehension Assessment/Intervention Auditory Comprehension;Reading Comprehension - Auditory Comprehension Assessment/Intervention Auditory Comprehension (Communication) [facility] - Able to Identify Objects/Pictures (Communication) body part;familiar objects;pictures of common objects;[facility] - Answers Questions (Communication) yes/no;wh questions;personal;simple;[facility] - Able to Follow Commands (Communication) 1-step;2-step;[facility] - Narrative Discourse conversational level;[facility] Reading Comprehension Assessment/Intervention Reading Comprehension (Communication) [facility] Functional Reading Tasks [facility] Expression Assessment/Intervention Expression Assessment/Intervention graphic expression;verbal expression - Verbal Expression Assessment/Intervention Verbal Expression [facility] Automatic Speech (Communication) response to greeting;days of week;months of year;[facility] Repetition sentences;[facility] Phrase Completion unpredictable;automatic/predictable;[facility] Responsive Naming simple;complex;[facility] Confrontational Naming high frequency;low frequency;[facility] Spontaneous/Functional Words simple;complex;[facility] - Sentence Formulation simple;complex;[facility] Conversational Discourse/Fluency [facility] Graphic Expression Assessment/Intervention Graphic Expression [facility] Sentence Formulation [facility] Motor Speech Assessment/Intervention Motor Speech Function [facility] Cognitive Assessment Intervention- [facility] Cognitive Function (Cognition) other (see comments) baseline delayed memory deficits, cognitive linguistic abilities are otherwise grossly functional - Orientation Status (Cognition) awareness of basic personal information;person;place;time;situation;[facility] Memory (Cognitive) simple;immediate;WFL;delayed;mild impairment - Attention (Cognitive) selective;sustained;[facility] Thought Organization (Cognitive) concrete divergent;concrete convergent;[facility] Reasoning (Cognitive) simple;deductive;[facility] Problem Solving (Cognitive) simple;temporal;multifactorial;[facility] Functional Math (Cognitive) simple;word problems;mod-complex;[facility] Executive Function (Cognition) deficit awareness;[facility] - BOILERMAKER FITTER Evaluation Clinical Impressions BOILERMAKER FITTER Diagnosis functional speech/language skills;mild;baseline;cognitive- linguistic disorder -[facility] Criteria for Skilled Therapy Interventions Met baseline status - Recommendations Therapy Frequency (BOILERMAKER FITTER SLC) evaluation only - Anticipated Discharge Disposition (BOILERMAKER FITTER) home - User Diane (r) = Recorded By, (t) = Taken By, (c) = Cosigned By Initials Name Effective Dates Niki King, MS [facility]ILER[facility]KER FITTER 03/27/23 - EDUCATION The patient has been educated in the following areas: Cognitive Impairment Communication Impairment. Time Calculation: Time Calculation- BOILERMAKER FITTER Row Name 07/27/25 1404 Time Calculation- BOILERMAKER FITTER BOILERMAKER FITTER Start Time 1025 - BOILERMAKER FITTER Received On 07/27/25 - Untimed Charges [id number]-RU Eval Speech and Production w/ Language Minutes 60 -MH Total Minutes Untimed Charges Total Minutes 60 -MH Total Minutes 60 -MH User Diane (r) = Recorded By, (t) = Taken By, (c) = Cosigned By Initials Name Provider Type Niki King MS CCC-BOILERMAKER FITTER Speech and Language Pathologist Therapy Charges for Today Code Description Service Date Service Provider Modifiers Qty [id number] HC ST EVAL SPEECH AND PROD W LANG 4 07/27/2025 Niki Goodwin MS CCC-SLP GN 1 MS PILO Silvestre 07/27/2025 * Case Management/Social Work - Kristan Jacinto RN - 07/27/2025 10:08 AM EDT Discharge Planning Assessment [facility] Patient Name: Brynn Cox Today's Date: 07/27/2025 Admit Date: 07/26/2025 Plan: IDP Discharge Needs Assessment Row Name 07/27/25 1004 Living Environment People in Home spouse Name(s) of People in Home Erwin Current Living Arrangements home Potentially Unsafe Housing Conditions none In the past 12 months has the electric, gas, oil, or water company threatened to shut off services in your home? No Primary Care Provided by self Provides Primary Care For no one Family Caregiver if Needed spouse Family Caregiver Names Erwin Quality of Family Relationships supportive;helpful;disruptive Able to Return to Prior Arrangements yes Resource/Environmental Concerns Resource/Environmental Concerns none Transportation Concerns none Transportation Needs In the past 12 months, has lack of transportation kept you from medical appointments or from getting medications? no In the past 12 months, has lack of transportation kept you from meetings, work, or from getting things needed for daily living? No Food Insecurity Within the past 12 months, you worried that your food would run out before you got the money to buymore. Never true Within the past 12 months, the food you bought just didn't last and you didn't have money to get more. Never true Transition Planning Patient/Family Anticipates Transition to home with family Patient/Family Anticipated Services at Transition none Discharge Needs Assessment Readmission Within the Last 30 Days no previous admission in last 30 days Equipment Currently Used at Home none Concerns to be Addressed no discharge needs identified;denies needs/concerns at this time Do you want help finding or keeping work or a job? I do not need or want help Do you want help with school or training? For example, starting or completing job training or getting a high school diploma, GED or equivalent No Anticipated Changes Related to Illness none Equipment Needed After Discharge none Discharge Plan Row Name 07/27/25 1006 Plan Plan IDP Patient/Family in Agreement with Plan yes Plan Comments Spoke with patient and spouse at bedside for IDP. Pt lives in [facility] with spouse in house with basement that she doesnt have to use. IADL and still drives prior to admission. No DME/HH/OPPT currently. PCP Araceli Doyle. [facility] [employer] with scripts filled at [facility] in [place]. No therapy recs on at this time. Plan is home with family to transport. CM will cont to follow. Final Discharge Disposition Code 01 - home or self-care Continued Care and Services - Admitted Since 07/26/2025 No active coordination exists. Demographic Summary Row Name 07/27/25 1004 General Information Admission Type observation Arrived From emergency department Referral Source admission list Reason for Consult decision-making Preferred Language Syrian Functional Status Row Name 07/27/25 1004 Functional Status Usual Activity Tolerance good Current Activity Tolerance good Physical Activity On average, how many minutes do you engage in exercise at this level? 0 min Functional Status, IADL Medications independent Meal Preparation independent Housekeeping independent Laundry independent Shopping independent If for any reason you need help with day-to-day activities such as bathing, preparing meals, shopping, managing finances, etc., do you get the help you need? I get all the help I need Psychosocial No documentation. Abuse/Neglect No documentation. Legal No documentation. Substance Abuse No documentation. Patient Forms No documentation. Kristan Jacinto RN documented in this encounter Plan of Treatment Upcoming Encounters Date Type Department Care Team (Late st Contact Info) Description 09/27/2025 10:00 AM EST Office Visit [facility] NEUROLOGY [address] [place] [address] Charu Hernandez, BLOCK LAYER [address] [facility] [address] [address] 11/01/2025 11:00 AM EST Office Visit [facility] UROLOGY [address] [facility] [place] [id number] Demi Palomares PA-C [address] [facility] [address] [place] [address] 11/20/2025 2:00 PM EST Appointment [facility] [address] [place] [address] 11/29/2025 9:30 AM EST Office Visit [facility] CARDIOLOGY [address] [place] [address] Alaina Hayes APRN [address] [place] [address] 12/13/2025 1:45 PM EST Office Visit [facility] ENDOCRINOLOGY [address] [facility] [address] [place] [address] Katrina Garrett MD [address] [facility] [address] [place] [address] Scheduled Procedures Name Priority Associated Diagnoses Date/Ti me CV CAROTID CEREBRAL ANGIOGRA M BILATERAL History of TIA (transient ischemic attack) Scheduled Referrals Name Type Priority Associated Diagnoses Order Schedule Ambulatory Referral to Neurology Outpatient Referral Routine Syncope and collapse Transient ischemic attack (TIA) Ordered: 07/27/2025 documented as of this encounter Procedures Procedure Name Priority Date/Time Associated Diagnosis Comments ECG 12-LEAD Routine 07/27/2025 11:28 AM EDT POCT GLUCOSE FINGERSTICK Routine 07/27/2025 11:24 AM EDT ECHO COMPLETE W/ DOPPLER AND COLOR FLOW Routine 07/27/2025 10:49 AM EDT POCT GLUCOSE FINGERSTICK Routine 07/27/2025 9:24 AM EDT CBC WITH AUTO DIFFERENTIAL Urgent 07/27/2025 9:02 AM EDT TROPONIN Urgent 07/27/2025 9:02 AM EDT HEMOGLOBIN A1C Urgent 07/27/2025 9:02 AM EDT LIPID PANEL Urgent 07/27/2025 9:02 AM EDT COMPREHENSIVE METABOLIC PANEL Urgent 07/27/2025 9:02 AM EDT DUPLEX CAROTID BILATERAL CAR - PERFORMED PROCEDURE STAT 07/27/2025 8:06 AM EDT POCT GLUCOSE FINGERSTICK Routine 07/27/2025 5:22 AM EDT MRI BRAIN WO CONTRAST STAT 07/26/2025 10:49 PM EDT POCT GLUCOSE FINGERSTICK Routine 07/26/2025 9:[address] CEREBRAL PERFUSION W WO CONTRAST STAT 07/26/2025 8:58 PM EDT SCANNED - TELEMETRY 07/26/2025 8 :10 PM EDT TSH RFX ON ABNORMAL TO FREE T4 Urgent 07/26/2025 8:06 PM EDT HIGH SENSITIVITIY TROPONIN T 1HR STAT 07/26/2025 8:[address] ANGIOGRAM HEAD STAT 07/26/2025 7:[address] ANGIOGRAM NECK STAT 07/26/2025 7:[address] HEAD WO CONTRAST STAT 07/26/2025 7 :43 PM EDT ECG 12-LEAD STAT 07/26/2025 6:41 PM EDT URINALYSIS, MICROSCOPIC ONLY STAT 07/26/2025 6:27 PM EDT URINALYSIS W/ CULTURE IF INDICATED STAT 07/26/2025 6:27 PM EDT VASQUES TOP STAT 07/26/2025 6:13 PM EDT GOLD TOP - SST STAT 07/26/2025 6:13 PM EDT DK GREEN TOP STAT 07/26/2025 6:13 PM EDT CBC WITH AUTO DIFFERENTIAL STAT 07/26/2025 6:13 PM EDT LAVENDER TOP STAT 07/26/2025 6:13 PM EDT LIGHT BLUE TOP STAT 07/26/2025 6:13 PM EDT RAINBOW DRAW STAT 07/26/2025 6:13 PM EDT TROPONIN STAT 07/26/2025 6:13 PM EDT HEPATITIS PANEL, ACUTE Add-On 6:13 PM EDT CBC AND DIFFERENTIAL STAT 07/26/2025 6:13 PM EDT MAGNESIUM STAT 07/26/2025 6:13 PM EDT COMPREHENSIVE METABOLIC PANEL STAT 07/26/2025 6:13 PM EDT documented in this encounter Results * ECG 12 Lead Tachycardia (07/27/2025 11:28 AM EDT) QT Interval 364 ms ECG QTC Interval 471 ms ECG 07/27/2025 11:2 8 AM EDT 07/27/2025 3:41 PM EDT Narrative ECG - 07/27/2025 3:41 PM EDT Test Reason : Tachycardia Blood Pressure : */* mmHG Vent. Rate : 101 BPM Atrial Rate : 101 BPM P-R Int : 146 ms QRS Dur : 84 ms QT Int : 364 ms P-R-T Axes : 44 7 102 degrees QTcB Int : 471 ms Sinus tachycardia with fusion complexes Poor R wave progression T wave abnormality, consider lateral ischemia Abnormal ECG When compared with ECG of 26-Jul-2025 18:41, (Unconfirmed) fusion complexes are now present Non-specific change in ST segment in Inferior leads Non-specific change in ST segment in Lateral leads T wave inversion no longer evident in Inferior leads T wave inversion more evident in Lateral leads Confirmed by JOSÉ GALVEZ MD ([id number]) on 07/27/2025 3:41:42 PM Referred By: ALFONZO Confirmed By: JOSÉ GALVEZ MD Procedure Note José Galvez MD - 07/27/2025 Test Reason : Tachycardia Blood Pressure : */* mmHG Vent. Rate : 101 BPM Atrial Rate : 101 BPM P-R Int : 146 ms QRS Dur : 84 ms QT Int : 364 ms P-R-T Axes : 44 7 102 degrees QTcB Int : 471 ms Sinus tachycardia with fusion complexes Poor R wave progression T wave abnormality, consider lateral ischemia Abnormal ECG When compared with ECG of 26-Jul-2025 18:41, (Unconfirmed) fusion complexes are now present Non-specific change in ST segment in Inferior leads Non-specific change in ST segment in Lateral leads T wave inversion no longer evident in Inferior leads T wave inversion more evident in Lateral leads Confirmed by JOSÉ GALVEZ MD ([id number]) on 07/27/2025 3:41:42 PM Referred By: ALFONZO Confirmed By: JOSÉ GALVEZ MD us Michelle Moon MD ECG ORDERABLES Final Resu lt ECG * POC Glucose 4x Daily Before Meals & at Bedtime (07/27/2025 11:24 AM EDT) [facility] Signature Glucose 121 70 - 130 mg/dL 07/27/2025 11:33 AM EDT [facility] Comment:Serial Number: [id number]: [id number] Blood 07/27/2025 11:2 4 AM EDT 07/27/2025 11:33 AM EDT Michael Cano MD POINT OF CARE TEST ORDERABLE S Final Result [facility]
[address] [place] [address], * ECHO COMPLETE W/ DOPPLER AND COLOR FLOW (07/27/2025 10:49 AM EDT) LVIDd 4.1 cm LVIDs 2.8 cm IVSd 1.00 cm LVPWd 1.00 cm IVS/LVPW 1.00 cm LVOT area 3.1 cm2 LVOT diam 2.00 cm SVi (LVOT) 31.6 ml/m2 MV E max karson 56.0 cm/sec MV A max karson 117.0 cm/sec MV E/A 0.48 IVRT 67.0 ms SV(LVOT) 58.7 ml RV Base 2.28 cm RV Mid 2.24 cm RV Length 7.2 cm LA dimension (2D) 3.0 cm LV V1 max 105.0 cm/sec LV V1 max PG 4.4 mmHg LV V1 mean PG 2.00 mmHg LV V1 VTI 18.7 cm Ao pk karson 117.7 cm/sec Ao max PG 5.5 mmHg Ao mean PG 3.0 mmHg Ao V2 VTI 23.1 cm LASHAE(I,D) 2.5 cm2 Dimensionless Index 0.81 (DI) MV max PG 6.1 mmHg MV mean PG 2.30 mmHg MV V2 VTI 18.4 cm MVA(VTI) 3.2 cm2 PA V2 max 92.0 cm/sec PA acc time 0.09 sec PI end-d karson 102.7 cm/sec Ao root diam 3.6 cm Ascending aorta 3.6 cm BH CV ECHO SHUNT ASSESSMENT PERFORMED (HIDDEN SCRIPTING) 1 Ao root area (BSA corrected) 1.9 cm2 Anatomical Region Laterality Modality Ultrasound Narrative 07/27/2025 12:17 PM EDT Left ventricular ejection fraction appears to be 56 - 60%. Left ventricular wall thickness is consistent with hypertrophy. Saline test results are negative. Left Ventricle Left ventricular ejection fraction appears to be 56 - 60%. Normal left ventricular cavity size noted. Left ventricular wall thickness is consistent with hypertrophy. Right Ventricle Right ventricle not well visualized. Normal right ventricular cavity size, wall thickness and systolic function noted. Left Atrium Normal left atrial size and volume noted. Saline test results are negative. Right Atrium Right atrium not assessed. Mitral Valve Mitral valve is not well visualized. No mitral valve regurgitation or significant stenosis is present. Tricuspid Valve Tricuspid valve not well visualized and not assessed. No evidence of significant tricuspid valve regurgitation is present. Aortic Valve The aortic valve is not well visualized. No aortic valve regurgitation or stenosis is present. The aortic valve was poorly visualized but appears trileaflet. Pulmonic Valve The pulmonic valve is structurally normal with no significant stenosis present. There is trace to mild pulmonic valve regurgitation present. Pericardium The pericardium is normal. There is no evidence of pericardial effusion. . Greater Vessels No dilation of the aortic root is present. No dilation of the ascending aorta is present. Study Quality The study is technically difficult for diagnosis. The quality of the study is limited due to breast implants . Shunt Assessment Verbal consent was obtained from the patient for use of agitated saline to assess for shunting. A total of 20 mL of agitated saline was administered. us Paul Bright APRN CV ECHO ORDERABLES Final Resu lt * POC Glucose Once (07/27/2025 9:24 AM EDT) Glucose 76 70 - 130 mg/dL 07/27/2025 9:26 AM EDT [facility] Comment:Serial Number: [id number]: [id number] Blood 07/27/2025 9:24 AM EDT 07/27/2025 9:26 AM EDT us Michelle Moon MD POINT OF CARE TEST ORDERAB LES Final Result [facility]
[address] [place] [id number], * (ABNORMAL) High Sensitivity Troponin T (07/27/2025 9:02 AM EDT) [facility] HS Troponin T 27(H) <14 ng/L 07/27/2025 9:47 AM EDT [facility] Blood Venipuncture / Unknown 07/27/2025 9:02 AM EDT 07/27/2025 9:06 AM EDT Narrative [facility] - 07/27/2025 9:47 AM EDT High Sensitive Troponin T Reference Range: <14.0 ng/L- Negative Female for AMI <22.0 ng/L- Negative Male for AMI >=14 - Abnormal Female indicating possible myocardial injury. >=22 - Abnormal Male indicating possible myocardial injury. Clinicians would have to utilize clinical acumen, EKG, Troponin, and serial changes to determine if it is an Acute Myocardial Infarction or myocardial injury due to an underlying chronic condition. us Michael Cano MD LAB BLOOD ORDERABLES Final R esult [facility]
[address] [place] [address], * (ABNORMAL) Lipid Panel (07/27/2025 9:02 AM EDT) [facility] Total Cholesterol 133 0 - 200 mg/dL 07/27/2025 9:47 AM EDT [facility] Triglycerides 114 0 - 150 mg/dL 07/27/2025 9:47 AM EDT [facility] HDL Cholesterol 30(L) 40 - 60 mg/dL 07/27/2025 9:47 AM EDT [facility] LDL Cholesterol 82 0 - 100 mg/dL 07/27/2025 9:47 AM EDT [facility] VLDL Cholesterol 21 5 - 40 mg/dL 07/27/2025 9:47 AM EDT [facility] LDL/HDL Ratio 2.67 07/27/2025 9:47 AM EDT [facility] Blood Venipuncture / Unknown 07/27/2025 9:02 AM EDT 07/27/2025 9:06 AM EDT [facility] - 07/27/2025 9:47 AM EDT Cholesterol Reference Ranges (U.S. Department of Health and Human Services ATP III Classifications) Desirable <200 mg/dL Borderline High 200-239 mg/dL High Risk >240 mg/dL Triglyceride Reference Ranges (U.S. Department of Health and Human Services ATP III Classifications) Normal <150 mg/dL Borderline High 150-199 mg/dL High 200-499 mg/dL Very High >500 mg/dL HDL Reference Ranges (U.S. Department of Health and Human Services ATP III Classifications) Low <40 mg/dl (major risk factor for CHD) High >60 mg/dl ('negative' risk factor for CHD) LDL Reference Ranges (U.S. Department of Health and Human Services ATP III Classifications) Optimal <100 mg/dL Near Optimal 100-129 mg/dL Borderline High 130-159 mg/dL High 160-189 mg/dL Very High >189 mg/dL LDL is calculated using the NIH LDL-C calculation. Michael Cano MD LAB BLOOD ORDERABLES Final R esult [facility]
[address] [place] [address], * (ABNORMAL) Hemoglobin A1c (07/27/2025 9:02 AM EDT) Hemoglobin A1C 6.91(H) 4.80 - 5.60 % 07/27/2025 9:40 AM EDT [facility] Blood Venipuncture / Unknown 07/27/2025 9:02 AM EDT 07/27/2025 9:06 AM EDT [facility] - 07/27/2025 9:40 AM EDT Hemoglobin A1C Ranges: Increased Risk for Diabetes 5.7% to 6.4% Diabetes >= 6.5% Diabetic Goal < 7.0% us Michael Cano MD LAB BLOOD ORDERABLES Final R esult [facility]
[address] [place] [address], * (ABNORMAL) Comprehensive Metabolic Panel (07/27/2025 9:02 AM EDT) Glucose 78 65 - 99 mg/dL 07/27/2025 9:47 AM EDT [facility] BUN 17.2 8.0 - 23.0 mg/dL 07/27/2025 9:47 AM EDT [facility] Creatinine 0.88 0.57 - 1.00 mg/dL 07/27/2025 9:47 AM EDT [facility] Sodium 138 136 - 145 mmol/L 07/27/2025 9:47 AM EDT [facility] Potassium 3.8 3.5 - 5.2 mmol/L 07/27/2025 9:47 AM EDT [facility] Chloride 104 98 - 107 mmol/L 07/27/2025 9:47 AM EDT [facility] CO2 20.1(L) 22.0 - 29.0 mmol/L 07/27/2025 9:47 AM EDT [facility] Calcium 8.7 8.6 - 10.5 mg/dL 07/27/2025 9:47 AM EDT [facility] Total Protein 6.1 6.0 - 8.5 g/dL 07/27/2025 9:47 AM EDT [facility] Albumin 3.5 3.5 - 5.2 g/dL 07/27/2025 9:47 AM EDT [facility] ALT (SGPT) 237(H) 1 - 33 U/L 07/27/2025 9:47 AM EDT [facility] AST (SGOT) 127(H) 1 - 32 U/L 07/27/2025 9:47 AM EDT [facility] Alkaline Phosphatase 123(H) 39 - 117 U/L 07/27/2025 9:47 AM EDT [facility] Total Bilirubin 0.8 0.0 - 1.2 mg/dL 07/27/2025 9:47 AM EDT [facility] Globulin 2.6 gm/dL 07/27/2025 9:47 AM EDT [facility] Comment:Calculated Result A/G Ratio 1.3 g/dL 07/27/2025 9:47 AM EDT [facility] BUN/Creatinine Ratio 19.5 7.0 - 25.0 07/27/2025 9:47 AM EDT [facility] Anion Gap 13.9 5.0 - 15.0 mmol/L 07/27/2025 9:47 AM EDT [facility] eGFR 74.4 >60.0 mL/min/1.7 3 07/27/2025 9:47 AM EDT [facility] Blood Venipuncture / Unknown 07/27/2025 9:02 AM EDT 07/27/2025 9:06 AM EDT Narrative [facility] - 07/27/2025 9:47 AM EDT GFR Categories in Chronic Kidney Disease (CKD) GFR Category GFR (mL/min/1.73) Interpretation G1 90 or greater Normal or high (1) G2 60-89 Mild decrease (1) G3a 45-59 Mild to moderate decrease G3b 30-44 Moderate to severe decrease G4 15-29 Severe decrease G5 14 or less Kidney failure (1)In the absence of evidence of kidney disease, neither GFR category G1 or G2 fulfill the criteria for CKD. eGFR calculation 2020 CKD-EPI creatinine equation, which does not include race as a factor us Michael Cano MD LAB BLOOD ORDERABLES Final R esult [facility]
[address] [place] [address], * (ABNORMAL) CBC Auto Differential (07/27/2025 9:02 AM EDT) WBC 11.73(H) 3.40 - 10.80 10*3/mm3 07/27/2025 9:32 AM [facility] RBC 3.75(L) 3.77 - 5.28 10*6/mm3 07/27/2025 9:32 AM [facility] Hemoglobin 11.9(L) 12.0 - 15.9 g/dL 07/27/2025 9:32 AM [facility] Hematocrit 37.3 34.0 - 46.6 % 07/27/2025 9:32 AM [facility] MCV 99.5(H) 79.0 - 97.0 fL 07/27/2025 9:32 AM [facility] MCH 31.7 26.6 - 33.0 pg 07/27/2025 9:32 AM [facility] MCHC 31.9 31.5 - 35.7 g/dL 07/27/2025 9:32 AM [facility] RDW 12.8 12.3 - 15.4 % 07/27/2025 9:32 AM [facility] RDW-SD 46.6 37.0 - 54.0 fl 07/27/2025 9:32 AM [facility] MPV 10.2 6.0 - 12.0 fL 07/27/2025 9:32 AM [facility] Platelets 193 140 - 450 10*3/mm3 07/27/2025 9:32 AM [facility] Neutrophil % 76.5(H) 42.7 - 76.0 % 07/27/2025 9:32 AM [facility] Lymphocyte % 14.5(L) 19.6 - 45.3 % 07/27/2025 9:32 AM [facility] Monocyte % 8.4 5.0 - 12.0 % 07/27/2025 9:32 AM [facility] Eosinophil % 0.0(L) 0.3 - 6.2 % 07/27/2025 9:32 AM EDT [facility] Basophil % 0.2 0.0 - 1.5 % 07/27/2025 9:32 AM EDT [facility] Immature Grans % 0.4 0.0 - 0.5 % 07/27/2025 9:32 AM EDT [facility] Neutrophils, Absolute 8.97(H) 1.70 - 7.00 10*3/mm3 07/27/2025 9:32 AM EDT [facility] Lymphocytes, Absolute 1.70 0.70 - 3.10 10*3/mm3 07/27/2025 9:32 AM EDT [facility] Monocytes, Absolute 0.99(H) 0.10 - 0.90 10*3/mm3 07/27/2025 9:32 AM EDT [facility] Eosinophils, Absolute 0.00 0.00 - 0.40 10*3/mm3 07/27/2025 9:32 AM EDT [facility] Basophils, Absolute 0.02 0.00 - 0.20 10*3/mm3 07/27/2025 9:32 AM EDT [facility] Immature Grans, Absolute 0.05 0.00 - 0.05 10*3/mm3 07/27/2025 9:32 AM EDT [facility] nRBC 0.0 0.0 - 0.2 /100 WBC 07/27/2025 9:32 AM EDT [facility] Blood Venipuncture / Unknown 07/27/2025 9:02 AM EDT 07/27/2025 9:07 AM EDT us Michael Cano MD LAB BLOOD ORDERABLES Final R esult [facility]
[address] [place] [address], * DUPLEX CAROTID BILATERAL CAR - PERFORMED PROCEDURE (07/27/2025 8:06 AM EDT) Prox CCA PSV 95.8 cm/sec Prox CCA EDV 29.2 cm/sec Right Mid CCA PSV 63.5 cm/sec right Mid CCA EDV 17.9 cm/sec Dist CCA PSV 57.9 cm/sec Dist CCA EDV 14.3 cm/sec Prox ICA PSV 61.0 cm/sec Prox ICA EDV 25.6 cm/sec Mid ICA PSV 76.5 cm/sec Mid ICA EDV 42.1 cm/sec Dist ICA PSV 134.6 cm/sec Dist ICA EDV 61.2 cm/sec Prox ECA PSV 152.3 cm/sec Prox ECA EDV 19.0 cm/sec Vertebral A PSV 52.9 cm/sec Vertebral A EDV 16.0 cm/sec Prox CCA PSV 70.8 cm/sec Prox CCA EDV 6.0 cm/sec left Mid CCA PSV 84.5 cm/sec left Mid CCA EDV 8.3 cm/sec Dist CCA PSV 63.1 cm/sec Dist CCA EDV 6.7 cm/sec Prox ICA PSV 55.3 cm/sec Prox ICA EDV 2.38 cm/sec Mid ICA PSV 61.1 cm/sec Mid ICA EDV 61.1 cm/sec Dist ICA PSV 65.9 cm/sec Dist ICA EDV 65.9 cm/sec Prox ECA PSV 119.0 cm/sec Prox ECA EDV 14.3 cm/sec Vertebral A PSV 65.9 cm/sec Vertebral A EDV 20.2 cm/sec Prox SCLA PSV 197.6 cm/sec Prox SCLA PSV 181.3 cm/sec ICA/CCA ratio 1.32 ICA/CCA ratio 0.97 Anatomical Region Laterality Modality Ultrasound Narrative 07/27/2025 12:13 PM EDT Right internal carotid artery demonstrates normal flow without evidence of hemodynamically significant stenosis. Antegrade right vertebral flow. Left internal carotid artery demonstrates normal flow without evidence of hemodynamically significant stenosis. Antegrade left vertebral flow. Study Impression Right CCA Prox: Imaging indicates patent flow. Right CCA Dist: Imaging indicates patent flow. Right ICA: Imaging indicates normal flow without evidence of hemodynamically significant stenosis. Right ECA: Imaging indicates patent flow. Right Vertebral: Antegrade flow is present. Right Subclavian: Imaging indicates patent flow. All other right side carotid system vessels are normal. Left CCA Prox: Imaging indicates patent flow. Left CCA Dist: Imaging indicates patent flow. Left ICA: Imaging indicates normal flow without evidence of hemodynamically significant stenosis. Left ECA: Imaging indicates patent flow. Left Vertebral: Antegrade flow is present. Left Subclavian: Imaging indicates patent flow. All other left side carotid system vessels are normal. Study Findings Right CCA Prox: No plaque visualized. Right CCA Mid: No plaque visualized. Right CCA Dist: Homogeneous plaque present. Right ICA Prox: No plaque visualized. Right ICA Mid: No plaque visualized. Right ICA Dist: No plaque visualized. Right ECA: Homogeneous plaque present. Right Vertebral: Antegrade flow noted. Left CCA Prox: No plaque visualized. Intima-medial thickening noted. Left CCA Mid: No plaque visualized. Intima-medial thickening noted. Left CCA Dist: Homogeneous plaque present. Left ICA Prox: Homogeneous plaque present. Left ICA Mid: No plaque visualized. Left ICA Dist: No plaque visualized. Left ECA: No plaque visualized. Left Vertebral: Antegrade flow noted. No elevated velocities detected in bilateral ICA. High resistive flow noted in the left ICA. Antegrade flow detected in Vertebral Arteries, bilaterally. All other right/left side carotid system vessels are normal. Additional Study Details Study performed at bedside. The study is technically good for diagnosis. Paul Bright APRN CV VASCULAR ORDERABLES Final Result * POC Glucose Once (07/27/2025 5:22 AM EDT) Glucose 101 70 - 130 mg/dL 07/27/2025 8:38 AM EDT [facility] Comment:Serial Number: [id number]: [id number] Blood 07/27/2025 5:22 AM EDT 07/27/2025 8:38 AM EDT Michelle Moon MD POINT OF CARE TEST ORDERAB LES Final Result [facility]
[address] [place] [address], [place] [phone] * MRI Brain Without Contrast (07/26/2025 10:49 PM EDT) Anatomical Region Laterality Modality Head, Neck N/A Magnetic Resonan ce 07/26/2025 10:5 9 PM EDT Impressions 07/26/2025 11:08 PM EDT Impression: Small patchy areas of diffusion restriction seen within the subcortical white matter of the left frontal and parietal lobes with very minimal if any corresponding decreased signal on the ADC map. Findings likely related to subacute infarcts or the sequela of previous infarcts. No evidence of hemorrhage, mass effect or midline shift. Electronically Signed: Lucila Elliott MD 07/26/2025 11:08 PM EDT Workstation ID: [id number] DxDesc Narrative 07/26/2025 11:08 PM EDT MRI BRAIN WO CONTRAST Date of Exam: 07/26/2025 10:34 PM EDT Indication: rfd, speech difficulty. Comparison: 07/26/2025. Technique: Routine multiplanar/multisequence sequence images of the brain were obtained without contrast administration. Findings: Small patchy areas of diffusion restriction are seen within the subcortical white matter of the left frontal and parietal lobes. There is very minimal if any corresponding decreased signal on the ADC map. Patchy areas of FLAIR signal changes are seen corresponding to these regions. No additional FLAIR signal changes identified. No additional diffusion signal abnormalities identified. There is no evidence of acute or chronic intracranial hemorrhage. No mass effect or midline shift. No abnormal extra-axial collections. The major vascular flow voids appear intact. The basal ganglia, brainstem and cerebellum appear within normal limits. Calvarial and superficial soft tissue signal is within normal limits. Orbits appear unremarkable. The paranasal sinuses and the mastoid air cells appear well aerated. Midline structures are intact. Procedure Note Lucila Elliott MD - 07/26/2025 MRI BRAIN WO CONTRAST Date of Exam: 07/26/2025 10:34 PM EDT Indication: rfd, speech difficulty. Comparison: 07/26/2025. Technique: Routine multiplanar/multisequence sequence images of the brainwere obtained without contrast administration. Findings: Small patchy areas of diffusion restriction are seen within thesubcortical white matter of the left frontal and parietal lobes. There isvery minimal if any corresponding decreased signal on the ADC map. Patchyareas of FLAIR signal changes are seen corresponding to these regions. No additional FLAIR signalchanges identified. No additional diffusion signal abnormalitiesidentified. There is no evidence of acute or chronic intracranialhemorrhage. No mass effect or midline shift. No abnormal extra-axial collections. The major vascular flow voids appearintact. The basal ganglia, brainstem and cerebellum appear within normallimits. Calvarial and superficial soft tissue signal is within normallimits. Orbits appear unremarkable. The paranasal sinuses and the mastoid air cells appear well aerated. Midlinestructures are intact. IMPRESSION: Impression: Small patchy areas of diffusion restriction seen within the subcorticalwhite matter of the left frontal and parietal lobes with very minimal ifany corresponding decreased signal on the ADC map. Findings likely relatedto subacute infarcts or the sequela of previous infarcts. No evidence of hemorrhage, mass effect ormidline shift. Electronically Signed: Lucila Elliott MD 07/26/2025 11:08 PM EDT Workstation ID: [id number] DxDesc Pual Bright BLOCK LAYER IMG MRI ORDERABLES Final Resu lt * (ABNORMAL) POC Glucose Once (07/26/2025 9:34 PM EDT) Glucose 178(H) 70 - 130 mg/dL 07/26/2025 10:07 PM EDT [facility] Comment:Serial Number: [id number]: [id number] Blood 07/26/2025 9:34 PM EDT 07/26/2025 10:07 PM EDT Michael Cano MD POINT OF CARE TEST ORDERABLE S Final Result [facility]
[address] [place] [address], * CT CEREBRAL PERFUSION WITH & WITHOUT CONTRAST (07/26/2025 8:58 PM EDT) Anatomical Region Laterality Modality Head N/A Computed Tomogra phy 07/26/2025 9:04 PM EDT Impressions 07/26/2025 9:07 PM EDT 1. Area of suggested ischemic brain at risk involving the left MCA territory without core infarction. Electronically Signed: Saturnino Macdonald MD 07/26/2025 9:07 PM EDT Workstation ID: [id number] DxDesc Narrative 07/26/2025 9:[address] CEREBRAL PERFUSION W WO CONTRAST Date of Exam: 07/26/2025 8:37 PM EDT Indication: rfd, speech difficulties. Comparison: None available. Technique: Axial CT images of the brain were obtained prior to and after the administration of iodinated contrast. Core blood volume, core blood flow, mean transit time, and Tmax images were obtained utilizing the Rapid software protocol. A limited CT angiogram of the head was also performed to measure the blood vessel density. The radiation dose reduction device was turned on for each scan per the ALARA (As Low as Reasonably Achievable) protocol. Findings: There is an area of elevated Tmax greater than 6 seconds within the left MCA territory white matter extending to the parietal cortex consistent with an area of ischemic brain at risk. No decrease in cerebral blood flow to suggest core infarction. CBF<30% volume: 0mL Tmax>6sec volume: 22 mL Mismatch volume: 22 mL Mismatch ratio: Infinite Procedure Note Saturnino Macdonald MD - 07/26/2025 CT CEREBRAL PERFUSION W WO CONTRAST Date of Exam: 07/26/2025 8:37 PM EDT Indication: rfd, speech difficulties. Comparison: None available. Technique: Axial CT images of the brain were obtained prior to and afterthe administration of iodinated contrast. Core blood volume, core bloodflow, mean transit time, and Tmax images were obtained utilizing the Rapidsoftware protocol. A limited CT angiogram of the head was also performed to measure the blood vesseldensity. The radiation dose reduction device was turned on for each scan per theALARA (As Low as Reasonably Achievable) protocol. Findings: There is an area of elevated Tmax greater than 6 seconds within the leftMCA territory white matter extending to the parietal cortex consistentwith an area of ischemic brain at risk. No decrease in cerebral blood flowto suggest core infarction. CBF<30% volume: 0mL Tmax>6sec volume: 22 mL Mismatch volume: 22 mL Mismatch ratio: Infinite IMPRESSION: 1. Area of suggested ischemic brain at risk involving the left MCAterritory without core infarction. Electronically Signed: Saturnino Macdonald MD 07/26/2025 9:07 PM EDT Workstation ID: [id number] DxDesc Paul Bright BLOCK LAYER IMG CT ORDERABLES Final Resul t * Telemetry Scan (07/26/2025 8:10 PM EDT) [facility] Onbase ECG ORDERABLES Final Result * TSH Rfx On Abnormal To Free T4 (07/26/2025 8:06 PM EDT) [facility] TSH 2.090 0.270 - 4.200 uIU/mL 07/27/2025 1:01 AM EDT [facility] Blood Line / Unknown 07/26/2025 8: 06 PM EDT 07/26/2025 8:15 PM EDT Michael Cano MD LAB BLOOD ORDERABLES Final R esult [facility]
[address] [place] [address], * (ABNORMAL) High Sensitivity Troponin T 1Hr (07/26/2025 8:06 PM EDT) [facility] HS Troponin T 20(H) <14 ng/L 07/26/2025 8:38 PM EDT [facility] Troponin T Numeric Delta 0 ng/L 07/26/2025 8:38 PM EDT [facility] Troponin T % Delta 0 Abnormal if >/= 20% 07/26/2025 8:38 PM EDT [facility] Blood Line / Unknown 07/26/2025 8: 06 PM EDT 07/26/2025 8:15 PM EDT Narrative [facility] - 07/26/2025 8:38 PM EDT High Sensitive Troponin T Reference Range: <14.0 ng/L- Negative Female for AMI <22.0 ng/L- Negative Male for AMI >=14 - Abnormal Female indicating possible myocardial injury. >=22 - Abnormal Male indicating possible myocardial injury. Clinicians would have to utilize clinical acumen, EKG, Troponin, and serial changes to determine if it is an Acute Myocardial Infarction or myocardial injury due to an underlying chronic condition. us Heron Whatley DO LAB BLOOD ORDERABLES Final Resul t [facility]
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 Left anterior cerebral and middle cerebral arteries are supplied by a patent anterior communicating artery. 2.High-grade stenosis of the supraclinoid right internal carotid artery. 3.No evidence of intracranial aneurysm. Electronically Signed: Guille Miller MD 07/26/2025 7:59 PM EDT Workstation ID: [id number] Narrative 07/26/2025 7:[address] ANGIOGRAM HEAD, CT ANGIOGRAM NECK Date of Exam: 07/26/2025 7:11 PM EDT Indication: facial droop, speech disturbance, syncope. Comparison: None available. Technique: CTA of the head was performed after the uneventful intravenous administration of iodinated contrast. Reconstructed coronal and sagittal images were also obtained. In addition, a 3-D volume rendered image was created for interpretation. Automated exposure control and iterative reconstruction methods were used. Findings: Aortic arch: The aortic arch is unremarkable. There is conventional 3 vessel arch anatomy. The right brachiocephalic and visualized bilateral subclavian arteries are within normal limits. Right carotid: The right CCA arises as expected from the brachiocephalic trunk. The CCA follows a normal course and appears normal caliber. Very small calcified plaque is visualized in the right carotid bifurcation without evidence of luminal narrowing. The external carotid artery and distal branches appear within normal limits. The cervical internal carotid artery follows a normal course and appears normal caliber throughout the neck and into the head. Calcified plaque in the supraclinoid right internal carotid artery causes high-grade stenosis. There are additional calcified plaques proximally in the cavernous segment causing mild to moderate stenosis. The ophthalmic artery origin is normal. The A1 and M1 segments appear within normal limits. The visualized distal JERMAINE and MCA branches appear patent. There is a patent anterior communicating artery. Right posterior communicating artery is not visualized. Left carotid: The left CCA arises as expected from the aortic arch. The CCA follows a normal course and appears normal caliber. The carotid bifurcation is unremarkable. The external carotid artery and distal branches appear within normal limits. The cervical internal carotid artery follows a normal course and appears normal caliber throughout the neck and into the head. Extensive mixed density plaque is visualized in the cavernous and supraclinoid left internal carotid artery. There is occlusion of the supraclinoid left internal carotid artery and minimal opacification of the cavernous and petrous segments. Origin of the left ophthalmic artery is not visualized. The A1 and M1 segments appear within normal limits. The visualized distal JERMAINE and MCA branches appear patent. Left posterior communicating artery is not visualized. Posterior circulation: Vertebral arteries arise as expected from ipsilateral subclavian arteries. The vertebral arteries are codominant. The vertebral arteries follow a normal course and appear normal caliber throughout the neck and into the head. The V4 segments are patent. Visualized posterior inferior cerebellar arteries are within normal limits. The basilar artery is normal caliber. Superior cerebellar arteries are patent. Bilateral P1 segments and posterior cerebral arteries appear within normal limits. Nonvascular findings: Intracranial structures appear unremarkable. Orbits are within normal limits. Paranasal sinuses and mastoid air cells appear well aerated. Superficial soft tissues and underlying musculature appear within normal limits. The lung apices are clear. The thyroid and salivary glands appear unremarkable. The suprahyoid and infrahyoid spaces of the neck appear unremarkable. There is no evidence of cervical lymphadenopathy or a neck mass. There are no acute osseous abnormalities or destructive bone lesions. Moderate degenerative disease at C5-C6 and C6-C7 is visualized. Procedure Note Guille Miller MD - 07/26/2025 CT ANGIOGRAM HEAD, CT ANGIOGRAM NECK Date of Exam: 07/26/2025 7:11 PM EDT Indication: facial droop, speech disturbance, syncope. Comparison: None available. Technique: CTA of the head was performed after the uneventful intravenousadministration of iodinated contrast. Reconstructed coronal and sagittalimages were also obtained. In addition, a 3-D volume rendered image wascreated for interpretation. Automated exposure control and iterative reconstruction methods wereused. Findings: Aortic arch: The aortic arch is unremarkable. There is conventional 3vessel arch anatomy. The right brachiocephalic and visualized bilateralsubclavian arteries are within normal limits. Right carotid: The right CCA arises as expected from the brachiocephalictrunk. The CCA follows a normal course and appears normal caliber. Verysmall calcified plaque is visualized in the right carotid bifurcationwithout evidence of luminal narrowing. The external carotid artery and distal branches appear within normallimits. The cervical internal carotid artery follows a normal course andappears normal caliber throughout the neck and into the head. Calcifiedplaque in the supraclinoid right internal carotid artery causes high-grade stenosis. There are additionalcalcified plaques proximally in the cavernous segment causing mild tomoderate stenosis. The ophthalmic artery origin is normal. The A1 and J0eqiysmgw appear within normal limits. The visualized distal JERMAINE and MCA branches appear patent. There is apatent anterior communicating artery. Right posterior communicatingartery is not visualized. Left carotid: The left CCA arises as expected from the aortic arch. TheCCA follows a normal course and appears normal caliber. The carotidbifurcation is unremarkable. The external carotid artery and distalbranches appear within normal limits. The cervical internal carotid artery follows a normal course and appearsnormal caliber throughout the neck and into the head. Extensive mixeddensity plaque is visualized in the cavernous and supraclinoid leftinternal carotid artery. There is occlusion of the supraclinoid left internal carotid artery and minimal opacificationof the cavernous and petrous segments. Origin of the left ophthalmicartery is not visualized. The A1 and M1 segments appear within normallimits. The visualized distal JERMAINE and MCA branches appear patent. Left posterior communicating artery is notvisualized. Posterior circulation: Vertebral arteries arise as expected fromipsilateral subclavian arteries. The vertebral arteries are codominant.The vertebral arteries follow a normal course and appear normal caliberthroughout the neck and into the head. The V4 segments are patent. Visualized posterior inferior cerebellararteries are within normal limits. The basilar artery is normal caliber.Superior cerebellar arteries are patent. Bilateral P1 segments andposterior cerebral arteries appear within normal limits. Nonvascular findings: Intracranial structures appear unremarkable. Orbitsare within normal limits. Paranasal sinuses and mastoid air cells appearwell aerated. Superficial soft tissues and underlying musculature appearwithin normal limits. The lung apices are clear. The thyroid and salivary glands appear unremarkable.The suprahyoid and infrahyoid spaces of the neck appear unremarkable.There is no evidence of cervical lymphadenopathy or a neck mass. Thereare no acute osseous abnormalities or destructive bone lesions. Moderate degenerative disease at C5-C6 andC6-C7 is visualized. 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 Left anteriorcerebral and middle cerebral arteries are supplied by a patent anteriorcommunicating artery. 2.High-grade stenosis of the supraclinoid right internal carotid artery. 3.No evidence of intracranial aneurysm. 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 Left anterior cerebral and middle cerebral arteries are supplied by a patent anterior communicating artery. 2.High-grade stenosis of the supraclinoid right internal carotid artery. 3.No evidence of intracranial aneurysm. Electronically Signed: Guille Miller MD 07/26/2025 7:59 PM EDT Workstation ID: [id number] Narrative 07/26/2025 7:[address] ANGIOGRAM HEAD, CT ANGIOGRAM NECK Date of Exam: 07/26/2025 7:11 PM EDT Indication: facial droop, speech disturbance, syncope. Comparison: None available. Technique: CTA of the head was performed after the uneventful intravenous administration of iodinated contrast. Reconstructed coronal and sagittal images were also obtained. In addition, a 3-D volume rendered image was created for interpretation. Automated exposure control and iterative reconstruction methods were used. Findings: Aortic arch: The aortic arch is unremarkable. There is conventional 3 vessel arch anatomy. The right brachiocephalic and visualized bilateral subclavian arteries are within normal limits. Right carotid: The right CCA arises as expected from the brachiocephalic trunk. The CCA follows a normal course and appears normal caliber. Very small calcified plaque is visualized in the right carotid bifurcation without evidence of luminal narrowing. The external carotid artery and distal branches appear within normal limits. The cervical internal carotid artery follows a normal course and appears normal caliber throughout the neck and into the head. Calcified plaque in the supraclinoid right internal carotid artery causes high-grade stenosis. There are additional calcified plaques proximally in the cavernous segment causing mild to moderate stenosis. The ophthalmic artery origin is normal. The A1 and M1 segments appear within normal limits. The visualized distal JERMAINE and MCA branches appear patent. There is a patent anterior communicating artery. Right posterior communicating artery is not visualized. Left carotid: The left CCA arises as expected from the aortic arch. The CCA follows a normal course and appears normal caliber. The carotid bifurcation is unremarkable. The external carotid artery and distal branches appear within normal limits. The cervical internal carotid artery follows a normal course and appears normal caliber throughout the neck and into the head. Extensive mixed density plaque is visualized in the cavernous and supraclinoid left internal carotid artery. There is occlusion of the supraclinoid left internal carotid artery and minimal opacification of the cavernous and petrous segments. Origin of the left ophthalmic artery is not visualized. The A1 and M1 segments appear within normal limits. The visualized distal JERMAINE and MCA branches appear patent. Left posterior communicating artery is not visualized. Posterior circulation: Vertebral arteries arise as expected from ipsilateral subclavian arteries. The vertebral arteries are codominant. The vertebral arteries follow a normal course and appear normal caliber throughout the neck and into the head. The V4 segments are patent. Visualized posterior inferior cerebellar arteries are within normal limits. The basilar artery is normal caliber. Superior cerebellar arteries are patent. Bilateral P1 segments and posterior cerebral arteries appear within normal limits. Nonvascular findings: Intracranial structures appear unremarkable. Orbits are within normal limits. Paranasal sinuses and mastoid air cells appear well aerated. Superficial soft tissues and underlying musculature appear within normal limits. The lung apices are clear. The thyroid and salivary glands appear unremarkable. The suprahyoid and infrahyoid spaces of the neck appear unremarkable. There is no evidence of cervical lymphadenopathy or a neck mass. There are no acute osseous abnormalities or destructive bone lesions. Moderate degenerative disease at C5-C6 and C6-C7 is visualized. Procedure Note Guille Miller MD - 07/26/2025 CT ANGIOGRAM HEAD, CT ANGIOGRAM NECK Date of Exam: 07/26/2025 7:11 PM EDT Indication: facial droop, speech disturbance, syncope. Comparison: None available. Technique: CTA of the head was performed after the uneventful intravenousadministration of iodinated contrast. Reconstructed coronal and sagittalimages were also obtained. In addition, a 3-D volume rendered image wascreated for interpretation. Automated exposure control and iterative reconstruction methods wereused. Findings: Aortic arch: The aortic arch is unremarkable. There is conventional 3vessel arch anatomy. The right brachiocephalic and visualized bilateralsubclavian arteries are within normal limits. Right carotid: The right CCA arises as expected from the brachiocephalictrunk. The CCA follows a normal course and appears normal caliber. Verysmall calcified plaque is visualized in the right carotid bifurcationwithout evidence of luminal narrowing. The external carotid artery and distal branches appear within normallimits. The cervical internal carotid artery follows a normal course andappears normal caliber throughout the neck and into the head. Calcifiedplaque in the supraclinoid right internal carotid artery causes high-grade stenosis. There are additionalcalcified plaques proximally in the cavernous segment causing mild tomoderate stenosis. The ophthalmic artery origin is normal. The A1 and [id number] appear within normal limits. The visualized distal JERMAINE and MCA branches appear patent. There is apatent anterior communicating artery. Right posterior communicatingartery is not visualized. Left carotid: The left CCA arises as expected from the aortic arch. TheCCA follows a normal course and appears normal caliber. The carotidbifurcation is unremarkable. The external carotid artery and distalbranches appear within normal limits. The cervical internal carotid artery follows a normal course and appearsnormal caliber throughout the neck and into the head. Extensive mixeddensity plaque is visualized in the cavernous and supraclinoid leftinternal carotid artery. There is occlusion of the supraclinoid left internal carotid artery and minimal opacificationof the cavernous and petrous segments. Origin of the left ophthalmicartery is not visualized. The A1 and M1 segments appear within normallimits. The visualized distal JERMAINE and MCA branches appear patent. Left posterior communicating artery is notvisualized. Posterior circulation: Vertebral arteries arise as expected fromipsilateral subclavian arteries. The vertebral arteries are codominant.The vertebral arteries follow a normal course and appear normal caliberthroughout the neck and into the head. The V4 segments are patent. Visualized posterior inferior cerebellararteries are within normal limits. The basilar artery is normal caliber.Superior cerebellar arteries are patent. Bilateral P1 segments andposterior cerebral arteries appear within normal limits. Nonvascular findings: Intracranial structures appear unremarkable. Orbitsare within normal limits. Paranasal sinuses and mastoid air cells appearwell aerated. Superficial soft tissues and underlying musculature appearwithin normal limits. The lung apices are clear. The thyroid and salivary glands appear unremarkable.The suprahyoid and infrahyoid spaces of the neck appear unremarkable.There is no evidence of cervical lymphadenopathy or a neck mass. Thereare no acute osseous abnormalities or destructive bone lesions. Moderate degenerative disease at C5-C6 andC6-C7 is visualized. 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 Left anteriorcerebral and middle cerebral arteries are supplied by a patent anteriorcommunicating artery. 2.High-grade stenosis of the supraclinoid right internal carotid artery. 3.No evidence of intracranial aneurysm. Electronically Signed: Guille Miller MD 07/26/2025 7:59 PM EDT Workstation ID: [id number] us Her[place] DO IMG CT ORDERABLES Final Result * CT Head Without Contrast (07/26/2025 7:43 PM EDT) Anatomical Region Laterality Modality Head N/A Computed Tomogra phy 07/26/2025 7:47 PM EDT Impressions 07/26/2025 7:48 PM EDT Impression: No acute intracranial findings. Electronically Signed: Saturnino Macdonald MD 07/26/2025 7:48 PM EDT Workstation ID: [id number] Narrative 07/26/2025 7:[address] HEAD WO CONTRAST Date of Exam: 07/26/2025 7:11 PM EDT Indication: Fall, head injury. Comparison: None available. Technique: Axial CT images were obtained of the head without contrast administration. Automated exposure control and iterative construction methods were used. Findings: There is no evidence of acute territorial infarction. There is no acute intracranial hemorrhage. There are no extra-axial collections. Ventricles and CSF spaces are symmetric. No mass effect nor hydrocephalus. Brain parenchyma appears normal for age. Paranasal sinuses and mastoid air cells are adequately aerated. Osseous structures and orbits appear intact. Procedure Note Saturnino Macdonald MD - 07/26/2025 CT HEAD WO CONTRAST Date of Exam: 07/26/2025 7:11 PM EDT Indication: Fall, head injury. Comparison: None available. Technique: Axial CT images were obtained of the head without contrastadministration. Automated exposure control and iterative constructionmethods were used. Findings: There is no evidence of acute territorial infarction. There is no acute intracranial hemorrhage. There are no extra-axialcollections. Ventricles and CSF spaces are symmetric. No mass effect norhydrocephalus. Brain parenchyma appears normal for age. Paranasal sinuses and mastoid air cells are adequately aerated. Osseous structures and orbits appear intact. IMPRESSION: Impression: No acute intracranial findings. Electronically Signed: Saturnino Macdonald MD 07/26/2025 7:48 PM EDT Workstation ID: [id number] us Heron [place] DO IMG CT ORDERABLES Final Result * ECG 12 Lead Other; syncope (07/26/2025 6:41 PM EDT) QT Interval 344 ms ECG QTC Interval 432 ms ECG 07/26/2025 6:41 PM EDT 08/06/2025 2:28 PM EDT Narrative ECG - 08/06/2025 2:28 PM EDT Test Reason : Other~ Blood Pressure : */* mmHG Vent. Rate : 95 BPM Atrial Rate : 95 BPM P-R Int : 138 ms QRS Dur : 70 ms QT Int : 344 ms P-R-T Axes : 10 43 -35 degrees QTcB Int : 432 ms Normal sinus rhythm Marked ST abnormality, possible lateral subendocardial injury Abnormal ECG No previous ECGs available Confirmed by MD WHATLEY CORY ([id number]) on 08/06/2025 2:28:36 PM Referred By: Confirmed By: HERON WHATLEY MD Procedure Note Heron [place] DO - 08/06/2025 Test Reason : Other~ Blood Pressure : */* mmHG Vent. Rate : 95 BPM Atrial Rate : 95 BPM P-R Int : 138 ms QRS Dur : 70 ms QT Int : 344 ms P-R-T Axes : 10 43 -35 degrees QTcB Int : 432 ms Normal sinus rhythm Marked ST abnormality, possible lateral subendocardial injury Abnormal ECG No previous ECGs available Confirmed by MD WHATLEY CORY ([id number]) on 08/06/2025 2:28:36 PM Referred By: Confirmed By: HERON WHATLEY MD Heron [place] DO ECG ORDERABLES Final Result ECG * (ABNORMAL) Urinalysis, Microscopic Only - Urine, Clean Catch (07/26/2025 6:27 PM EDT) RBC, UA 0-2 None Seen, 0-2 /HPF 07/26/2025 6:56 PM EDT [facility] WBC, UA 0-2 None Seen, 0-2 /HPF 07/26/2025 6:56 PM EDT [facility] Comment:Urine culture not in dicated. Bacteria, UA Trace(A) None Seen /HPF 07/26/2025 6:56 PM EDT [facility] Squamous Epithelial Cells, UA 3-6(A) None Seen, 0-2 /HPF 07/26/2025 6:56 PM EDT [facility] Hyaline Casts, UA 3-6 None Seen /LPF 07/26/2025 6:56 PM EDT [facility] Methodology Automated Microscopy 07/26/2025 6:56 PM EDT [facility] Urine Urine specimen obtained by clean catch procedure / Unknown Collection / Unknown 07/26/2025 6:27 PM EDT 07/26/2025 6:46 PM EDT Heron [place] DO URINE ORDERABLES Final Result [facility]
[address] [place] [address], * (ABNORMAL) Urinalysis With Culture If Indicated - Urine, Clean Catch (07/26/2025 6:27 PM EDT) Color, UA Dark Yellow(A) Yellow, Straw 07/26/2025 6:50 PM EDT [facility] Appearance, UA Clear Clear 07/26/2025 6:50 PM EDT [facility] pH, UA 6.5 5.0 - 8.0 07/26/2025 6:50 PM EDT [facility] Specific [place], UA 1.019 1.005 - 1.030 07/26/2025 6:50 PM EDT [facility] Glucose, UA 100 mg/dL (Trace)(A) Negative 07/26/2025 6:50 PM EDT [facility] Ketones, UA Trace(A) Negative 07/26/2025 6:50 PM EDT [facility] Bilirubin, UA Small (1+)(A) Negative 07/26/2025 6:50 PM EDT [facility] Blood, UA Negative Negative 07/26/2025 6:50 PM EDT [facility] Protein, UA >=300 mg/dL (3+)(A) Negative 07/26/2025 6:50 PM EDT [facility] Leuk Esterase, UA Small (1+)(A) Negative 07/26/2025 6:50 PM EDT [facility] Nitrite, UA Negative Negative 07/26/2025 6:50 PM EDT [facility] Urobilinogen, UA 1.0 E.U./dL 0.2 - 1.0 E.U./dL 07/26/2025 6:50 PM EDT [facility] Urine Urine specimen obtained by clean catch procedure / Unknown Collection / Unknown 07/26/2025 6:27 PM EDT 07/26/2025 6:46 PM EDT [facility] - 07/26/2025 6:50 PM EDT In absence of clinical symptoms, the presence of pyuria, bacteria, and/or nitrites on the urinalysis result does not correlate with infection. Heron [place] DO URINE ORDERABLES Final Result [facility]
[address] [place] [address], * Hepatitis Panel, Acute (07/26/2025 6:13 PM EDT) Hepatitis B Surface Ag Non-Reacti ve Non-Reacti ve 07/27/2025 12:05 PM EDT [facility] Hep A IgM Non-Reacti ve Non-Reacti ve 07/27/2025 12:05 PM EDT [facility] Hep B C IgM Non-Reacti ve Non-Reacti ve 07/27/2025 12:05 PM EDT [facility] Hepatitis C Ab Non-Reacti ve Non-Reacti ve 07/27/2025 12:05 PM EDT [facility] Blood Line / Unknown 07/26/2025 6: 13 PM EDT 07/26/2025 6:20 PM EDT Narrative [facility] - 07/27/2025 12:05 PM EDT Results may be falsely decreased if patient taking Biotin. Michelle Moon MD LAB BLOOD ORDERABLES Final Result [facility]
[address] [place] [address], * (ABNORMAL) CBC Auto Differential (07/26/2025 6:13 PM EDT) WBC 7.98 3.40 - 10.80 10*3/mm3 07/26/2025 6:28 PM EDT [facility] RBC 3.98 3.77 - 5.28 10*6/mm3 07/26/2025 6:28 PM EDT [facility] Hemoglobin 12.2 12.0 - 15.9 g/dL 07/26/2025 6:28 PM EDT [facility] Hematocrit 36.2 34.0 - 46.6 % 07/26/2025 6:28 PM EDT [facility] MCV 91.0 79.0 - 97.0 fL 07/26/2025 6:28 PM EDT [facility] MCH 30.7 26.6 - 33.0 pg 07/26/2025 6:28 PM EDT [facility] MCHC 33.7 31.5 - 35.7 g/dL 07/26/2025 6:28 PM EDT [facility] RDW 12.8 12.3 - 15.4 % 07/26/2025 6:28 PM EDT [facility] RDW-SD 42.5 37.0 - 54.0 fl 07/26/2025 6:28 PM EDT [facility] MPV 10.8 6.0 - 12.0 fL 07/26/2025 6:28 PM EDT [facility] Platelets 218 140 - 450 10*3/mm3 07/26/2025 6:28 PM EDT [facility] Neutrophil % 68.6 42.7 - 76.0 % 07/26/2025 6:28 PM EDT [facility] Lymphocyte % 25.2 19.6 - 45.3 % 07/26/2025 6:28 PM EDT [facility] Monocyte % 5.6 5.0 - 12.0 % 07/26/2025 6:28 PM EDT [facility] Eosinophil % 0.0(L) 0.3 - 6.2 % 07/26/2025 6:28 PM EDT [facility] Basophil % 0.1 0.0 - 1.5 % 07/26/2025 6:28 PM EDT [facility] Immature Grans % 0.5 0.0 - 0.5 % 07/26/2025 6:28 PM EDT [facility] Neutrophils, Absolute 5.47 1.70 - 7.00 10*3/mm3 07/26/2025 6:28 PM EDT [facility] Lymphocytes, Absolute 2.01 0.70 - 3.10 10*3/mm3 07/26/2025 6:28 PM EDT [facility] Monocytes, Absolute 0.45 0.10 - 0.90 10*3/mm3 07/26/2025 6:28 PM EDT [facility] Eosinophils, Absolute 0.00 0.00 - 0.40 10*3/mm3 07/26/2025 6:28 PM EDT [facility] Basophils, Absolute 0.01 0.00 - 0.20 10*3/mm3 07/26/2025 6:28 PM EDT [facility] Immature Grans, Absolute 0.04 0.00 - 0.05 10*3/mm3 07/26/2025 6:28 PM T [facility] nRBC 0.0 0.0 - 0.2 /100 WBC 07/26/2025 6:28 PM [facility] Blood Line / Unknown 07/26/2025 6: 13 PM EDT 07/26/2025 6:20 PM EDT us Heron [place] DO LAB BLOOD ORDERABLES Final Resul t Performing Organization Address [facility] Phone Number [facility]
[address] [place] [address], * Light Blue Top (07/26/2025 6:13 PM EDT) Extra Tube Hold for add-ons. 07/26/2025 6:31 PM EDT [facility] Comment:Auto resulted Blood Line / Unknown 07/26/2025 6: 13 PM EDT 07/26/2025 6:20 PM EDT us Heron [place] DO LAB BLOOD ORDER ONLY Final Resul t Performing Organization Address [facility] Phone Number [facility]
[address] [place] [address], * Vasques Top (07/26/2025 6:13 PM EDT) Extra Tube Hold for add-ons. 07/26/2025 6:31 PM EDT [facility] Comment:Auto resulted. Blood Line / Unknown 07/26/2025 6: 13 PM EDT 07/26/2025 6:20 PM EDT us Heron [place] DO LAB BLOOD ORDER ONLY Final Resul t Performing Organization Address [facility] de Phone Number [facility]
[address] [place] [address], * Gold Top - SST (07/26/2025 6:13 PM EDT) Extra Tube Hold for add-ons. 07/26/2025 6:31 PM EDT [facility] Comment:Auto resulted. Blood Line / Unknown 07/26/2025 6: 13 PM EDT 07/26/2025 6:20 PM EDT us Heron [place] DO LAB BLOOD ORDER ONLY Final Resul t Performing Organization Address City/[facility]/ZIP Co de Phone Number [facility]
[address] [place] [address], [place] [phone] * Lavender Top (07/26/2025 6:13 PM EDT) Extra Tube hold for add-on 07/26/2025 6:31 PM EDT [facility] Comment:Auto resulted Blood Line / Unknown 07/26/2025 6: 13 PM EDT 07/26/2025 6:20 PM EDT us Heron [place] DO LAB BLOOD ORDER ONLY Final Resul t Performing Organization Address [facility] Phone Number [facility]
[address] [place] [address], [place] [phone] * Green Top (Gel) (07/26/2025 6:13 PM EDT) Extra Tube Hold for add-ons. 07/26/2025 6:31 PM EDT [facility] Comment:Auto resulted. Blood Line / Unknown 07/26/2025 6: 13 PM EDT 07/26/2025 6:20 PM EDT us Heron [place] DO LAB BLOOD ORDER ONLY Final Resul t Performing Organization Address [facility] de Phone Number [facility]
[address] [place] [address], [place] [phone] * (ABNORMAL) High Sensitivity Troponin T (07/26/2025 6:13 PM EDT) HS Troponin T 20(H) <14 ng/L 07/26/2025 6:48 PM EDT [facility] Blood Line / Unknown 07/26/2025 6: 13 PM EDT 07/26/2025 6:20 PM EDT Narrative [facility] - 07/26/2025 6:48 PM EDT High Sensitive Troponin T Reference Range: <14.0 ng/L- Negative Female for AMI <22.0 ng/L- Negative Male for AMI >=14 - Abnormal Female indicating possible myocardial injury. >=22 - Abnormal Male indicating possible myocardial injury. Clinicians would have to utilize clinical acumen, EKG, Troponin, and serial changes to determine if it is an Acute Myocardial Infarction or myocardial injury due to an underlying chronic condition. us Heron [place] DO LAB BLOOD ORDERABLES Final Resul t Performing Organization Address City/[facility]/ZIP Co de Phone Number [facility]
[address] [place] [address], * Magnesium (07/26/2025 6:13 PM EDT) Magnesium 2.2 1.6 - 2.4 mg/dL 07/26/2025 6:48 PM EDT [facility] Blood Line / Unknown 07/26/2025 6: 13 PM EDT 07/26/2025 6:20 PM EDT us Heron [place] DO LAB BLOOD ORDERABLES Final Resul t Performing Organization Address City/[facility]/ZIP Co de Phone Number [facility]
[address] [place] [address], [place] [phone] * (ABNORMAL) Comprehensive Metabolic Panel (07/26/2025 6:13 PM EDT) Glucose 236(H) 65 - 99 mg/dL 07/26/2025 6:48 PM EDT [facility] BUN 21.8 8.0 - 23.0 mg/dL 07/26/2025 6:48 PM EDT [facility] Creatinine 1.02(H) 0.57 - 1.00 mg/dL 07/26/2025 6:48 PM EDT [facility] Sodium 136 136 - 145 mmol/L 07/26/2025 6:48 PM EDT [facility] Potassium 4.2 3.5 - 5.2 mmol/L 07/26/2025 6:48 PM EDT [facility] Chloride 100 98 - 107 mmol/L 07/26/2025 6:48 PM EDT [facility] CO2 25.0 22.0 - 29.0 mmol/L 07/26/2025 6:48 PM EDT [facility] Calcium 9.2 8.6 - 10.5 mg/dL 07/26/2025 6:48 PM EDT [facility] Total Protein 6.8 6.0 - 8.5 g/dL 07/26/2025 6:48 PM EDT [facility] Albumin 4.2 3.5 - 5.2 g/dL 07/26/2025 6:48 PM EDT [facility] ALT (SGPT) 133(H) 1 - 33 U/L 07/26/2025 6:48 PM T [facility] AST (SGOT) 74(H) 1 - 32 U/L 07/26/2025 6:48 PM EDT [facility] Alkaline Phosphatase 157(H) 39 - 117 U/L 07/26/2025 6:48 PM EDT [facility] Total Bilirubin 0.4 0.0 - 1.2 mg/dL 07/26/2025 6:48 PM EDT [facility] Globulin 2.6 gm/dL 07/26/2025 6:48 PM EDT [facility] Comment:Calculated Result A/G Ratio 1.6 g/dL 07/26/2025 6:48 PM T [facility] BUN/Creatinine Ratio 21.4 7.0 - 25.0 07/26/2025 6:48 PM T [facility] Anion Gap 11.0 5.0 - 15.0 mmol/L 07/26/2025 6:48 PM T [facility] eGFR 62.3 >60.0 mL/min/1.7 3 07/26/2025 6:48 PM EDT [facility] Blood Line / Unknown 07/26/2025 6: 13 PM EDT 07/26/2025 6:20 PM EDT Narrative [facility] - 07/26/2025 6:48 PM EDT GFR Categories in Chronic Kidney Disease (CKD) GFR Category GFR (mL/min/1.73) Interpretation G1 90 or greater Normal or high (1) G2 60-89 Mild decrease (1) G3a 45-59 Mild to moderate decrease G3b 30-44 Moderate to severe decrease G4 15-29 Severe decrease G5 14 or less Kidney failure (1)In the absence of evidence of kidney disease, neither GFR category G1 or G2 fulfill the criteria for CKD. eGFR calculation 2020 CKD-EPI creatinine equation, which does not include race as a factor Heron Whatley DO LAB BLOOD ORDERABLES Final Resul t [facility]
[address] [place] [address], documented in this encounter Visit Diagnoses Diagnosis Facial droop- Primary Facial weakness Syncope and collapse Fall down stairs, initial encounter Stenosis of both internal carotid arteries Hyperglycemia Other abnormal glucose Ketonuria Acetonuria Renal insufficiency Unspecified disorder of kidney and ureter Elevated troponin Other abnormal blood chemistry Transient ischemic attack (TIA) Unspecified transient cerebral ischemia Transient ischemic attack (TIA) Unspecified transient cerebral ischemia documented in this encounter Admitting Diagnoses Diagnosis Facial droop Facial weakness documented in this encounter Administered Medications Inactive Administered Medications - up to 3 most recent administrations Medication Order MAR Action Action Date Dose Rate Site acetaminophen (TYLENOL) 160 MG/5ML oral solution 650 mg 650 mg, Oral, Every 4 Hours PRN, Mild Pain, Starting on Melanie 07/27/25 at 0024, If given for fever, use fever parameter: fever greater than 100.4 F Based on patient request - if ordered for moderate or severe pain, provider allows for administration of a medication prescribed for a lower pain scale. Do not exceed 4 grams of acetaminophen in a 24 hr period. Max dose of 2gm for AST/ALT greater than 120 units/L. If given for pain, use the following pain scale: Mild Pain = Pain Score of 1-3, CPOT 1-2 Moderate Pain = Pain Score of 4-6, CPOT 3-4 Severe Pain = Pain Score of 7-10, CPOT 5-8 acetaminophen (TYLENOL) suppository 650 mg 650 mg, Rectal, Every 4 Hours PRN, Mild Pain, Starting on Melanie 07/27/25 at 0024, If given for fever, use fever parameter: fever greater than 100.4 F Based on patient request - if ordered for moderate or severe pain, provider allows for administration of a medication prescribed for a lower pain scale. Do not exceed 4 grams of acetaminophen in a 24 hr period. Max dose of 2gm for AST/ALT greater than 120 units/L. If given for pain, use the following pain scale: Mild Pain = Pain Score of 1-3, CPOT 1-2 Moderate Pain = Pain Score of 4-6, CPOT 3-4 Severe Pain = Pain Score of 7-10, CPOT 5-8 acetaminophen (TYLENOL) tablet 650 mg 650 mg, Oral, Every 4 Hours PRN, Mild Pain, Starting on Melanie 07/27/25 at 0024, If given for fever, use fever parameter: fever greater than 100.4 F Based on patient request - if ordered for moderate or severe pain, provider allows for administration of a medication prescribed for a lower pain scale. Do not exceed 4 grams of acetaminophen in a 24 hr period. Max dose of 2gm for AST/ALT greater than 120 units/L. If given for pain, use the following pain scale: Mild Pain = Pain Score of 1-3, CPOT 1-2 Moderate Pain = Pain Score of 4-6, CPOT 3-4 Severe Pain = Pain Score of 7-10, CPOT 5-8 aspirin chewable tablet 81 mg 81 mg, Oral, Daily, First dose on Thu07/26/25 at 2236, Herbal/drug interaction: Avoid use with ginkgo biloba. Do not exceed 4 grams of aspirin in a 24 hr period. If given for pain, use the following pain scale: Mild Pain = Pain Score of 1-3, CPOT 1-2 Moderate Pain = Pain Score of 4-6, CPOT 3-4 Severe Pain = Pain Score of 7-10, CPOT 5-8 Given 07/27/2025 1:13 AM EDT 81 mg bisacodyl (DULCOLAX) EC tablet 5 mg 5 mg, Oral, Daily PRN, Constipation, Use if polyethylene glycol is ineffective, Starting on Thu07/27/25 at 0024, Use if no bowel movement after 12 hours. Swallow whole. Do not crush, split, or chew tablet. bisacodyl (DULCOLAX) suppository 10 mg 10 mg, Rectal, Daily PRN, Constipation, Use if bisacodyl oral is ineffective, Starting on Thu07/27/25 at 0024, Use if no bowel movement after 12 hours. Hold for diarrhea Calcium Replacement - Follow Nurse / BPA Driven Protocol Open Order & Select S Electrolyte Replacement Protocol Algorithm to View Details clopidogrel (PLAVIX) tablet 300 mg 300 mg, Oral, Once, On Thu07/26/25 at 2237, For 1 dose Given 07/27/2025 1:13 AM EDT 300 mg clopidogrel (PLAVIX) tablet 75 mg 75 mg, Oral, Daily, First dose on Thu07/27/25 at 1200 Given 07/27/2025 12:02 PM EDT 75 mg dextrose (D50W) (25 g/50 mL) IV injection 25 g 25 g, Intravenous, Every 15 Minutes PRN, Low Blood Sugar, Blood Sugar Less Than 70, Starting on Thu07/27/25 at 0022, Blood sugar less than 70; patient has IV access - Unresponsive, NPO or Unable To Safely Swallow dextrose (GLUTOSE) oral gel 15 g 15 g, Oral, Every 15 Minutes PRN, Low Blood Sugar, Blood sugar less than 70, Starting on Thu07/27/25 at 0022, BS<70, Patient Alert, Is not NPO, Can safely swallow. famotidine (PEPCID) tablet 40 mg 40 mg, Oral, Daily, First dose on Thu07/27/25 at 0900 Given 07/27/2025 10:23 AM EDT 40 mg glucagon (GLUCAGEN) injection 1 mg 1 mg, Intramuscular, Every 15 Minutes PRN, Low Blood Sugar, Blood Glucose Less Than 70, Starting on Thu07/27/25 at 0022, Blood Glucose Less Than 70 - Patient Without IV Access - Unresponsive, NPO or Unable To Safely Swallow Reconstitute powder for injection by adding 1 mL of ring cutter lathe operator-supplied sterile diluent or sterile water for injection to a vial containing 1 mg of the drug, to provide solutions containing 1 mg/mL. Shake vial gently to dissolve. heparin (porcine) 5000 UNIT/ML injection 5,000 Units 5,000 Units, Subcutaneous, Every 12 Hours Scheduled, First dose on Melanie 07/27/25 at 0900, Indications: VTE ProphylaxisIndications :VTE Prophylaxis Given 07/27/2025 10:24 AM EDT 5,000 Units Right Lower Abdomen Insulin Lispro (humaLOG) injection 2-7 Units 2-7 Units, Subcutaneous, 4 Times Daily Before Meals & Nightly, First dose on Melanie 07/27/25 at 0730, Correction Insulin - Low Dose - Total Insulin Dose Less Than 40 units/day (Lean, Elderly or Renal Patients) Blood Glucose 150-199 mg/dL - 2 units Blood Glucose 200-249 mg/dL - 3 units Blood Glucose 250-299 mg/dL - 4 units Blood Glucose 300-349 mg/dL - 5 units Blood Glucose 350-400 mg/dL - 6 units Blood Glucose Greater Than 400 mg/dL - 7 units & Call Provider ([facility]) Caution: Look alike/sound alike drug alert([facility]) iopamidol (ISOVUE-370) 76 % injection 100 mL 100 mL, Intravenous, Once in Imaging, On Thu07/26/25 at 2000, For 1 dose Given 07/26/2025 7:27 PM EDT 90 mL iopamidol (ISOVUE-370) 76 % injection 40 mL 40 mL, Intravenous, Once in Imaging, On Thu07/26/25 at 2115, For 1 dose Given 07/26/2025 8:59 PM EDT 40 mL lactated ringers infusion 75 mL/hr, Intravenous, Continuous, Starting on Thu07/27/25 at 0115, For 12 hours New Bag 07/27/2025 1:14 AM EDT 75 mL/hr 75 mL/hr Magnesium Standard Dose Replacement - Follow Nurse / BPA Driven Protocol Open Order & Select [facility] Electrolyte Replacement Protocol Algorithm to View Details nitroglycerin (NITROSTAT) SL tablet 0.4 mg 0.4 mg, Sublingual, Every 5 Minutes PRN, Chest Pain, Starting on Melanie 07/27/25 at 0022, If Pain Unrelieved After 3 Doses Notify MD May administer up to 3 doses per episode. Hold if SBP less than 100. ondansetron (ZOFRAN) injection 4 mg 4 mg, Intravenous, Every 6 Hours PRN, Nausea, Vomiting, Starting on Melanie 07/27/25 at 0024, If BOTH ondansetron (ZOFRAN) and promethazine (PHENERGAN) are ordered use ondansetron first and THEN promethazine IF ondansetron is ineffective. Phosphorus Replacement - Follow Nurse / BPA Driven Protocol Open Order & Select [facility] Electrolyte Replacement Protocol Algorithm to View Details polyethylene glycol (MIRALAX) packet 17 g 17 g, Oral, Daily PRN, Constipation, Use if senna-docusate is ineffective, Starting on Melanie 07/27/25 at 0024, Use if no bowel movement after 12 hours. Mix in 6-8 ounces of water. Use 4-8 ounces of water, tea, or juice for each 17 gram dose. Potassium Replacement - Follow Nurse / BPA Driven Protocol Open Order & Select [facility] Electrolyte Replacement Protocol Algorithm to View Details sennosides-docusate (PERICOLACE) 8.6-50 MG per tablet 2 tablet 2 tablet, Oral, 2 Times Daily, First dose on Melanie 07/27/25 at 0900, HOLD MEDICATION IF PATIENT HAS HAD BOWEL MOVEMENT. Start bowel management regimen if patient has not had a bowel movement after 12 hours. sodium chloride 0.9 % bolus 1,000 mL 1,000 mL, Intravenous, at 2,000 mL/hr, Administer over 0.5 Hours, Once, On Thu07/26/25 at 1913, For 1 dose New Bag 07/26/2025 8:23 PM EDT 1,000 mL 2000 mL/hr sodium chloride 0.9 % flush 10 mL 10 mL, Intravenous, As Needed, Line Care, Starting on Thu07/26/25 at 1813 sodium chloride 0.9 % flush 10 mL 10 mL, Intravenous, Every 12 Hours Scheduled, First dose on Thu07/27/25 at 0215 Given 07/27/2025 12:03 PM EDT 10 mL sodium chloride 0.9 % flush 10 mL 10 mL, Intravenous, As Needed, Line Care, Starting on Thu07/27/25 at 0116 sodium chloride 0.9 % flush 10 mL 10 mL, Intravenous, Every 12 Hours Scheduled, First dose on Thu07/27/25 at 0115 Given 07/27/2025 10:21 AM EDT 10 mL sodium chloride 0.9 % flush 10 mL 10 mL, Intravenous, As Needed, Line Care, Starting on Thu07/27/25 at 0021 sodium chloride 0.9 % infusion 40 mL 40 mL, Intravenous, at 100 mL/hr, As Needed, Line Care, Starting on Thu07/27/25 at 0116, Following administration of an IV intermittent medication, flush line with 40mL NS at 100mL/hr. sodium chloride 0.9 % infusion 40 mL 40 mL, Intravenous, at 100 mL/hr, As Needed, Line Care, Starting on Thu07/27/25 at 0021, Following administration of an IV intermittent medication, flush line with 40mL NS at 100mL/hr. documented in this encounter Active and Recently Administered Medications Times are shown in EDT. Scheduled Medication Order 07/25/2025 07/26/2025 07/27/2025 aspirin chewable tablet 81 mg 81 mg, Oral, Daily, First dose on Thu07/26/25 at 2236, Herbal/drug interaction: Avoid use with ginkgo biloba. Do not exceed 4 grams of aspirin in a 24 hr period. If given for pain, use the following pain scale: Mild Pain = Pain Score of 1-3, CPOT 1-2 Moderate Pain = Pain Score of 4-6, CPOT 3-4 Severe Pain = Pain Score of 7-10, CPOT 5-8 0113 (Given - Provid er: Gage Cox RN) clopidogrel (PLAVIX) tablet 300 mg (COMPLETED) 300 mg, Oral, Once, On Thu07/26/25 at 2237, For 1 dose 0113 (Given - Provid er: Gage Cox RN) clopidogrel (PLAVIX) tablet 75 mg 75 mg, Oral, Daily, First dose on Thu07/27/25 at 1200 1202 (Given - Provid er: Tonio Hawthorne RN) famotidine (PEPCID) tablet 40 mg 40 mg, Oral, Daily, First dose on Thu07/27/25 at 0900 1023 (Given - Provid er: Tonio Hawthorne RN - Comment: ECHO, US carotid, Dr. decker.) heparin (porcine) 5000 UNIT/ML injection 5,000 Units 5,000 Units, Subcutaneous, Every 12 Hours Scheduled, First dose on Thu07/27/25 at 0900, Indications: VTE Prophylaxis 1024 (Given - Provid er: Tonio Hawthorne RN - Comment: US alem ALVARADO, Dr. decker.) Insulin Lispro (humaLOG) injection 2-7 Units 2-7 Units, Subcutaneous, 4 Times Daily Before Meals & Nightly, First dose on Thu07/27/25 at 0730, Correction Insulin - Low Dose - Total Insulin Dose Less Than 40 units/day (Lean, Elderly or Renal Patients) Blood Glucose 150-199 mg/dL - 2 units Blood Glucose 200-249 mg/dL - 3 units Blood Glucose 250-299 mg/dL - 4 units Blood Glucose 300-349 mg/dL - 5 units Blood Glucose 350-400 mg/dL - 6 units Blood Glucose Greater Than 400 mg/dL - 7 units & Call Provider ([facility]) Caution: Look alike/sound alike drug alert([facility]) 0926 (Not Given - Provider: Tonio Hawthorne RN - Reason: Order parameters not met)1153 (Not Given - Provider: Tonio Hawthorne RN - Reason: Order parameters not met) iopamidol (ISOVUE-370) 76 % injection 100 mL (COMPLETED) 100 mL, Intravenous, Once in Imaging, On Thu07/26/25 at 2000, For 1 dose 192 (Given - Provider: Luis Suazo [facility]) iopamidol (ISOVUE-370) 76 % injection 40 mL (COMPLETED) 40 mL, Intravenous, Once in Imaging, On Thu07/26/25 at 2115, For 1 dose 2058 (Given - Provider: Eriak Mackenzie) sennosides-docusate (PERICOLACE) 8.6-50 MG per tablet 2 tablet(Linked Group 1) 2 tablet, Oral, 2 Times Daily, First dose on Thu07/27/25 at 0900, HOLD MEDICATION IF PATIENT HAS HAD BOWEL MOVEMENT. Start bowel management regimen if patient has not had a bowel movement after 12 hours. 1216 (Not Given - Provider: Tonio Hawthorne RN - Reason: Patient/family refused) sodium chloride 0.9 % bolus 1,000 mL (COMPLETED) 1,000 mL, Intravenous, at 2,000 mL/hr, Administer over 0.5 Hours, Once, On Thu07/26/25 at 1913, For 1 dose 2022 (New Bag - Provider: Desi Lehman RN)2116 (Stopped - Provider: Rudolph Laura, CORY) sodium chloride 0.9 % flush 10 mL 10 mL, Intravenous, Every 12 Hours Scheduled, First dose on Melanie 07/27/25 at 0215 0217 (Canceled Entry - Provider: Gage Cox RN)1203 (Given - Provider: Tonio Hawthorne RN) sodium chloride 0.9 % flush 10 mL 10 mL, Intravenous, Every 12 Hours Scheduled, First dose on Melanie 07/27/25 at 0115 0217 (Canceled Entry - Provider: Gage Cox RN)1021 (Given - Provider: Tonio Hawthorne RN - Comment: US alem ALVARADO Dr. visist.) Continuous Medication Order 07/25/2025 07/26/2025 07/27/2025 lactated ringers infusion 75 mL/hr, Intravenous, Continuous, Starting on Melanie 07/27/25 at 0115, For 12 hours 0114 (New Bag - Prov ider: Gage Cox RN)1313 (Due: Order Ending - Provider: Gage Cox RN - Comment: [Order ends at this time. Document the following action when infusion is complete: Stopped]) PRN Medication Order 07/25/2025 07/26/2025 07/27/2025 acetaminophen (TYLENOL) 160 MG/5ML oral solution 650 mg(Linked Group 2) 650 mg, Oral, Every 4 Hours PRN, Mild Pain, Starting on Melanie 07/27/25 at 0024, If given for fever, use fever parameter: fever greater than 100.4 F Based on patient request - if ordered for moderate or severe pain, provider allows for administration of a medication prescribed for a lower pain scale. Do not exceed 4 grams of acetaminophen in a 24 hr period. Max dose of 2gm for AST/ALT greater than 120 units/L. If given for pain, use the following pain scale: Mild Pain = Pain Score of 1-3, CPOT 1-2 Moderate Pain = Pain Score of 4-6, CPOT 3-4 Severe Pain = Pain Score of 7-10, CPOT 5-8 acetaminophen (TYLENOL) suppository 650 mg(Linked Group 2) 650 mg, Rectal, Every 4 Hours PRN, Mild Pain, Starting on Melanie 07/27/25 at 0024, If given for fever, use fever parameter: fever greater than 100.4 F Based on patient request - if ordered for moderate or severe pain, provider allows for administration of a medication prescribed for a lower pain scale. Do not exceed 4 grams of acetaminophen in a 24 hr period. Max dose of 2gm for AST/ALT greater than 120 units/L. If given for pain, use the following pain scale: Mild Pain = Pain Score of 1-3, CPOT 1-2 Moderate Pain = Pain Score of 4-6, CPOT 3-4 Severe Pain = Pain Score of 7-10, CPOT 5-8 acetaminophen (TYLENOL) tablet 650 mg(Linked Group 2) 650 mg, Oral, Every 4 Hours PRN, Mild Pain, Starting on Melanie 07/27/25 at 0024, If given for fever, use fever parameter: fever greater than 100.4 F Based on patient request - if ordered for moderate or severe pain, provider allows for administration of a medication prescribed for a lower pain scale. Do not exceed 4 grams of acetaminophen in a 24 hr period. Max dose of 2gm for AST/ALT greater than 120 units/L. If given for pain, use the following pain scale: Mild Pain = Pain Score of 1-3, CPOT 1-2 Moderate Pain = Pain Score of 4-6, CPOT 3-4 Severe Pain = Pain Score of 7-10, CPOT 5-8 bisacodyl (DULCOLAX) EC tablet 5 mg(Linked Group 1) 5 mg, Oral, Daily PRN, Constipation, Use if polyethylene glycol is ineffective, Starting on Melanie 07/27/25 at 0024, Use if no bowel movement after 12 hours. Swallow whole. Do not crush, split, or chew tablet. bisacodyl (DULCOLAX) suppository 10 mg(Linked Group 1) 10 mg, Rectal, Daily PRN, Constipation, Use if bisacodyl oral is ineffective, Starting on Melanie 07/27/25 at 0024, Use if no bowel movement after 12 hours. Hold for diarrhea Calcium Replacement - Follow Nurse / BPA Driven Protocol Open Order & Select S Electrolyte Replacement Protocol Algorithm to View Details dextrose (D50W) (25 g/50 mL) IV injection 25 g 25 g, Intravenous, Every 15 Minutes PRN, Low Blood Sugar, Blood Sugar Less Than 70, Starting on Melanie 07/27/25 at 0022, Blood sugar less than 70; patient has IV access - Unresponsive, NPO or Unable To Safely Swallow dextrose (GLUTOSE) oral gel 15 g 15 g, Oral, Every 15 Minutes PRN, Low Blood Sugar, Blood sugar less than 70, Starting on Melanie 07/27/25 at 0022, BS<70, Patient Alert, Is not NPO, Can safely swallow. glucagon (GLUCAGEN) injection 1 mg 1 mg, Intramuscular, Every 15 Minutes PRN, Low Blood Sugar, Blood Glucose Less Than 70, Starting on Melanie 07/27/25 at 0022, Blood Glucose Less Than 70 - Patient Without IV Access - Unresponsive, NPO or Unable To Safely Swallow Reconstitute powder for injection by adding 1 mL of ring cutter lathe operator-supplied sterile diluent or sterile water for injection to a vial containing 1 mg of the drug, to provide solutions containing 1 mg/mL. Shake vial gently to dissolve. Magnesium Standard Dose Replacement - Follow Nurse / BPA Driven Protocol Open Order & Select [facility] Electrolyte Replacement Protocol Algorithm to View Details nitroglycerin (NITROSTAT) SL tablet 0.4 mg 0.4 mg, Sublingual, Every 5 Minutes PRN, Chest Pain, Starting on Melanie 07/27/25 at 0022, If Pain Unrelieved After 3 Doses Notify MD May administer up to 3 doses per episode. Hold if SBP less than 100. ondansetron (ZOFRAN) injection 4 mg 4 mg, Intravenous, Every 6 Hours PRN, Nausea, Vomiting, Starting on Melanie 07/27/25 at 0024, If BOTH ondansetron (ZOFRAN) and promethazine (PHENERGAN) are ordered use ondansetron first and THEN promethazine IF ondansetron is ineffective. Phosphorus Replacement - Follow Nurse / BPA Driven Protocol Open Order & Select S Electrolyte Replacement Protocol Algorithm to View Details polyethylene glycol (MIRALAX) packet 17 g(Linked Group 1) 17 g, Oral, Daily PRN, Constipation, Use if senna-docusate is ineffective, Starting on Melanie 07/27/25 at 0024, Use if no bowel movement after 12 hours. Mix in 6-8 ounces of water. Use 4-8 ounces of water, tea, or juice for each 17 gram dose. Potassium Replacement - Follow Nurse / BPA Driven Protocol Open Order & Select [facility] Electrolyte Replacement Protocol Algorithm to View Details sodium chloride 0.9 % flush 10 mL 10 mL, Intravenous, As Needed, Line Care, Starting on Thu07/26/25 at 1813 sodium chloride 0.9 % flush 10 mL 10 mL, Intravenous, As Needed, Line Care, Starting on Thu07/27/25 at 0116 sodium chloride 0.9 % flush 10 mL 10 mL, Intravenous, As Needed, Line Care, Starting on Thu07/27/25 at 0021 sodium chloride 0.9 % infusion 40 mL 40 mL, Intravenous, at 100 mL/hr, As Needed, Line Care, Starting on Thu07/27/25 at 0116, Following administration of an IV intermittent medication, flush line with 40mL NS at 100mL/hr. sodium chloride 0.9 % infusion 40 mL 40 mL, Intravenous, at 100 mL/hr, As Needed, Line Care, Starting on Thu07/27/25 at 0021, Following administration of an IV intermittent medication, flush line with 40mL NS at 100mL/hr. Linked Groups Order Group 1: sennosides-docusate (PERICOLACE) 8.6-50 MG per tablet 2 tabletJump to med 2 tablet, Oral, 2 Times Daily, First dose on Thu07/27/25 at 0900, HOLD MEDICATION IF PATIENT HAS HAD BOWEL MOVEMENT. Start bowel management regimen if patient has not had a bowel movement after 12 hours. And polyethylene glycol (MIRALAX) packet 17 gJump to med 17 g, Oral, Daily PRN, Constipation, Use if senna-docusate is ineffective, Starting on Thu07/27/25 at 0024, Use if no bowel movement after 12 hours. Mix in 6-8 ounces of water. Use 4-8 ounces of water, tea, or juice for each 17 gram dose. And bisacodyl (DULCOLAX) EC tablet 5 mgJump to med 5 mg, Oral, Daily PRN, Constipation, Use if polyethylene glycol is ineffective, Starting on Thu07/27/25 at 0024, Use if no bowel movement after 12 hours. Swallow whole. Do not crush, split, or chew tablet. And bisacodyl (DULCOLAX) suppository 10 mgJump to med 10 mg, Rectal, Daily PRN, Constipation, Use if bisacodyl oral is ineffective, Starting on Melanie 07/27/25 at 0024, Use if no bowel movement after 12 hours. Hold for diarrhea Group 2: acetaminophen (TYLENOL) tablet 650 mgJump to med 650 mg, Oral, Every 4 Hours PRN, Mild Pain, Starting on Melanie 07/27/25 at 0024, If given for fever, use fever parameter: fever greater than 100.4 F Based on patient request - if ordered for moderate or severe pain, provider allows for administration of a medication prescribed for a lower pain scale. Do not exceed 4 grams of acetaminophen in a 24 hr period. Max dose of 2gm for AST/ALT greater than 120 units/L. If given for pain, use the following pain scale: Mild Pain = Pain Score of 1-3, CPOT 1-2 Moderate Pain = Pain Score of 4-6, CPOT 3-4 Severe Pain = Pain Score of 7-10, CPOT 5-8 Or acetaminophen (TYLENOL) 160 MG/5ML oral solution 650 mgJump to med 650 mg, Oral, Every 4 Hours PRN, Mild Pain, Starting on Melanie 07/27/25 at 0024, If given for fever, use fever parameter: fever greater than 100.4 F Based on patient request - if ordered for moderate or severe pain, provider allows for administration of a medication prescribed for a lower pain scale. Do not exceed 4 grams of acetaminophen in a 24 hr period. Max dose of 2gm for AST/ALT greater than 120 units/L. If given for pain, use the following pain scale: Mild Pain = Pain Score of 1-3, CPOT 1-2 Moderate Pain = Pain Score of 4-6, CPOT 3-4 Severe Pain = Pain Score of 7-10, CPOT 5-8 Or acetaminophen (TYLENOL) suppository 650 mgJump to med 650 mg, Rectal, Every 4 Hours PRN, Mild Pain, Starting on Melanie 07/27/25 at 0024, If given for fever, use fever parameter: fever greater than 100.4 F Based on patient request - if ordered for moderate or severe pain, provider allows for administration of a medication prescribed for a lower pain scale. Do not exceed 4 grams of acetaminophen in a 24 hr period. Max dose of 2gm for AST/ALT greater than 120 units/L. If given for pain, use the following pain scale: Mild Pain = Pain Score of 1-3, CPOT 1-2 Moderate Pain = Pain Score of 4-6, CPOT 3-4 Severe Pain = Pain Score of 7-10, CPOT 5-8 documented in this encounter Care Teams [employer] Relationship Specialty Start Date End Date Araceli Doyle MD PCP - General Family Medicine 03/19/22 documented as of this encounter
--- OUTSIDE RECORDS SUMMARY | 2025-08-09 13:00 | XMS_ITS | Encounter Summary ---
Author Organization [facility] Address [address] [place] [address] Care Team Providers Care Hybrid Technologist Name Role Phone Araceli Doyle MD Primary Care Provider [phone] Reason for Referral * Consultation (Urgent) - Closed Specialty Diagnoses / Procedures Referred By Owen t Referred To Contact Vascular Surgery Diagnoses Carotid stenosis, bilateral Procedures CO OFFICE/OUTPATIENT NEW MODERATE MDM 45 MINUTES Alaina Hayes APRN [address] [place] [address] Phone: tel: fax: Scott Rhodes MD [address] [place] [address] [place] [address] Phone: tel: fax: Referral ID Status Reason Start Date Expiration Date Visits Requested Visits Authorized [id number] Closed Patient Preference 08/09/2025 11/08/2026 1 1 Reason for Visit * Reason Comments Hypertension Encounter Details Date Type Department Care Team (Late st Contact Info) Description 08/09/2025 1:00 PM EDT Office Visit [facility] CARDIOLOGY [address] [place] [address] Alaina Hayes APRN [address] [place] [address] Carotid stenosis, bilateral (Primary Dx); Transient ischemic attack (TIA); Mixed hyperlipidemia; Essential hypertension Social History Tobacco Use Types Packs/Day Years Used Date Smoking Tobacco: Never Passive Smoke Exposure: Past Smokeless Tobacco: Never Alcohol Use Standard Drinks/Week Comments Never 0 (1 standard drink = 0.6 oz pur e alcohol) [facility] Utilities Answer Date Recorded In the past 12 months has th e electric, gas, oil, or water company threatened [...] GED or equivalent No 07/27/2025 Preferred Language Slovenian 07/27/2025 Comments Unknown Sex and Gender Information Value Date Recorded Sex Assigned at Not on file Legal Sex Female 10:07 AM EDT Gender Identity Not on file Sexual Orientation Not on file documented as of this encounter Last Filed Vital Signs Vital Sign Reading Time Taken Comments Blood Pressure 138/74 08/09/2025 12:41 PM EDT Pulse 102 08/09/2025 12:41 PM EDT Temperature - - Respiratory Rate - - Oxygen Saturation 98% 08/09/2025 12:41 PM EDT Inhaled Oxygen Concentration - - Weight 72.6 kg (160 lb) 08/09/2025 12:41 PM EDT Height 167.6 cm (5' 6 ) 08/09/2025 12:41 PM EDT Body Mass Index 25.82 08/09/2025 12:41 PM EDT documented in this encounter Progress Notes * Alaina Hayes APRN - 08/09/2025 1:00 PM EDTAssociated Problem(s): Carotid stenosis, bilateral Orders: Ambulatory Referral to Vascular Surgery * Alaina Hayes APRN - 08/09/2025 1:00 PM EDTAssociated Problem(s): Transient ischemic attack (TIA) * Alaina Hayes APRN - 08/09/2025 1:00 PM EDTAssociated Problem(s): Mixed hyperlipidemia {Hyperlipidemia A/P Block (Optional):2170924319} Orders: ezetimibe (Zetia) 10 MG tablet; Take 1 tablet by mouth Daily. Lipid Panel; Future * Alaina Hayes APRN - 08/09/2025 1:00 PM EDTAssociated Problem(s): Essential hypertension {Hypertension is (optional):4387326755} * Alaina Hayes APRN - 08/09/2025 1:00 PM EDTAssociated Order(s): ECG 12 Lead Post-Procedure Diagnose(s): Carotid stenosis, bilateral Images from the original note were not included. [facility] Provider Note Date: 08/09/2025 Name: Brynn Cox : 1965 PCP: Araceli Doyle MD Chief Complaint Patient presents with Hypertension Subjective History of Present Illness History of Present Illness The patient is a 60-year-old female who presents for [facility] f/u transient ischemic attack (TIA), hypertension, and hyperlipidemia. She recently experienced a transient ischemic attack and was hospitalized on 07/27/2025 at [facility]. During her hospital stay, she underwent several tests, including a carotid ultrasound and a CT scan of the head and neck. The ultrasound did not reveal any stenosis on either side, but the CT scan revealed occlusion of the supraclinoid left internal carotid artery with minimal opacification of the cavernous and petrous segments. Left anterior cerebral and middle cerebral arteries are supplied by apatent anterior communicating artery. High-grade stenosis of the supraclinoid right internal carotid artery. She was informed that her next appointment would be with the stroke unit at [facility] to further investigate the scan results. Prior to her hospitalization, she was recovering from a urinary tract infection (UTI). She reports no chest pressure or dizziness. She has an upcoming appointment with neurology on 08/25/2025. She is currently unable to drive or climb stairs. Upon hospital discharge she was started on aspirin and Plavix. She has a history of high blood pressure, which is managed with Lisinopril 10mg daily. Her blood pressure readings were normal during her hospital stay and remain stable today. She has made significant dietary changes, including eliminating sugar, and has started taking fish oil supplements. Has history of hyperlipidemia and is currently on atorvastatin 80 mg. SOCIAL HISTORY Exercise: Walking up and down the driveway, stretching. Diet: No sugar, consuming fish oils. FAMILY HISTORY - Mother: Open heart surgery - Father: Open heart surgery Cardiology and Sleep Related Problems 1. Insomnia 2. HTN 3. HPL 4. Anxiety/Depression 5. Qkwzrgug-ubbjknk-jshprsirf brittle 6. Family history of significant CAD; insurance denied RORY 7. TIA 07/27/2025 07/26/2025 CT Angiogram head and neck - Occlusion of the supraclinoid left internal carotid artery with minimal opacification of the cavernous and petrous segments. Left anterior cerebral and middle cerebral arteries are supplied by a patent anterior communicating artery. - High-grade stenosis of the supraclinoid right internal carotid artery. - No evidence of intracranial aneurysm. 07/27/2025 Carotid Duplex - R ICA demonstrates normal flow without evidence of hemodynamically significant stenosis - l ICA demonstrates normal flow without evidence of hemodynamically significant stenosis 07/27/2025 ECHO -EF 56-60% - Left ventricular wall thickness consistent with hypertrophy - Saline test results are negative - Trace to mild pulmonic valve regurgitation present 10/02/2023 echo-normal EF, grade 1 diastolic dysfunction, mild LVH, quality of images were limited due to breast implants. Allergies Allergen Reactions Codeine GI Intolerance Vomiting Sulfa Antibiotics GI Intolerance vomiting Current Outpatient Medications: aspirin 81 MG chewable tablet, Chew 1 tablet Daily., Disp: 90 tablet, Rfl: 2 atorvastatin (LIPITOR) 80 MG tablet, Take 1 tablet by mouth Daily., Disp: , Rfl: carvedilol (COREG) 25 MG tablet, Take 1 tablet by mouth Every 12 (Twelve) Hours. (Patient taking differently: Take 1 tablet by mouth Every 12 (Twelve) Hours. Patients states only taking one time per day), Disp: , Rfl: clopidogrel (PLAVIX) 75 MG tablet, Take 1 tablet by mouth Daily., Disp: 90 tablet, Rfl: 2 Continuous Glucose Sensor (FreeStyle Jovita 3 Plus Sensor), Use as directed every 15 days, Disp: 6 each, Rfl: 0 Continuous Glucose Sensor (FreeStyle Jovita 3 Sensor) misc, Inject 1 each under the skin into the appropriate area as directed Every 14 (Fourteen) Days., Disp: 2 each, Rfl: 6 estradiol (VAGIFEM) 10 MCG tablet vaginal tablet, Insert 1 tablet into the vagina 2 (Two) Times a Week., Disp: , Rfl: Insulin Glargine (BASAGLAR KWIKPEN) 100 UNIT/ML injection pen, Inject 48 Units under the skin into the appropriate area as directed Daily. (Patient taking differently: Inject 40 Units under the skin into the appropriate area as directed Daily. Takes 40 in morning and 16 units at night), Disp: 45 mL, Rfl: 1 lisinopril (PRINIVIL,ZESTRIL) 10 MG tablet, Take 1 tablet by mouth Daily., Disp: , Rfl: Mounjaro 7.5 MG/0.5ML solution auto-injector, Inject 7.5 mg under the skin into the appropriate area as directed 1 (One) Time Per Week., Disp: 6 mL, Rfl: 1 venlafaxine XR (EFFEXOR-XR) 75 MG 24 hr capsule, Take 1 capsule by mouth Daily., Disp: , Rfl: ezetimibe (Zetia) 10 MG tablet, Take 1 tablet by mouth Daily., Disp: 30 tablet, Rfl: 11 Past Medical History: Diagnosis Date Otitis media [...] Drug use: Never Sexual activity: Defer Objective Vital Signs: BP 138/74 Pulse 102 Ht 167.6 cm (66 ) Wt 72.6 kg (160 lb) SpO2 98% BMI 25.82 kg/m?? Estimated body mass index is 25.82 kg/m?? as calculated from the following: Height as of this encounter: 167.6 cm (66 ). Weight as of this encounter: 72.6 kg (160 lb). Physical Exam Constitutional: Appearance: Normal appearance. She is well-developed. HENT: Head: Normocephalic and atraumatic. Cardiovascular: Rate and Rhythm: Normal rate and regular rhythm. Heart sounds: Normal heart sounds. No murmur heard. Pulmonary: Breath sounds: Normal breath sounds. No wheezing or rhonchi. Musculoskeletal: Right lower leg: No edema. Left lower leg: No edema. Skin: Capillary Refill: Capillary refill takes less than 2 seconds. Coloration: Skin is not cyanotic. Nails: There is no clubbing. Neurological: Mental Status: She is alert and oriented to person, place, and time. Motor: No weakness. Gait: Gait normal. Psychiatric: Mood and Affect: Mood normal. Behavior: Behavior is cooperative. Thought Content: Thought content normal. ECG 12 Lead Date/Time: 08/09/2025 1:36 PM Performed by: Alaina Hayes APRN Authorized by: Alaina Hayes APRN Comparison: compared with previous ECG from 07/26/2025 Comparison to previous ECG: SR with marked ST abnormality, possible subendocardial injury Rhythm: sinus rhythm Rate: normal BPM: 94 QRS axis: normal Other findings: T wave abnormality Clinical impression: abnormal EKG Comments: SR with nonspecific t wave abnormality Results Labs - Cholesterol: 07/27/2025, 133 - LDL: 07/27/2025, 82 - HDL: 07/27/2025, 30 Imaging - Carotid ultrasound: No stenosis on the left or right - CT of the head and neck: Stenosis on the left side with collateral flow and stenosis on the rightside. High grade stenosis of the supraclinoid right internal carotid artery and occlusion of the left internal carotid artery with minimal opacification and some collateral flow Assessment and Plan Assessment & Plan Carotid stenosis, bilateral Orders: Ambulatory Referral to Vascular Surgery Transient ischemic attack (TIA) Mixed hyperlipidemia Orders: ezetimibe (Zetia) 10 MG tablet; Take 1 tablet by mouth Daily. Lipid Panel; Future Essential hypertension Assessment & Plan 1. Carotid Stenosis - Referral to a vascular surgeon, Dr. Scott Rhodes, for further evaluation and potential surgical intervention. - Continue current medications: aspirin and Plavix. - Continue Carvedilol 25mg daily 2. TIA - Neurology appointment scheduled for 08/25/2025 to monitor brain function and any deficits. 2. Hypertension: - Maintain current medication regimen. - Continue monitoring blood pressure regularly. - Advised to maintain a healthy diet and lifestyle modifications to support blood pressure control. 3. Hyperlipidemia: - Continue atorvastatin 80 mg. - Add Zetia to the regimen to help lower LDL levels. - Repeat lipid panel in 3 months to monitor progress. - Goal to reduce LDL to <70. - Patient education on the importance of diet and exercise in managing cholesterol levels. - Discussed potential side effects of Zetia . Follow-up: 3-month follow-up appointment scheduled. Recommendations: ER if symptoms increase and Report if any new/changing symptoms immediately Follow Up Return in about 3 months (around 11/08/2025) for Next scheduled follow up. Patient or patient inbound customer service representative verbalized consent for the use of Ambient Listening during the visit with Alaina Hayes APRN for chart documentation. 08/09/2025 13:40 EDT Alaina Hayes APRN Cardiology and Sleep [facility] 08/09/2025 Please note that this explicitly excludes time spent on other separate billable services such as performing procedures or test interpretation, when applicable. documented in this encounter Plan of Treatment Upcoming Encounters Date Type Department Care Team (Late st Contact Info) Description 09/27/2025 10:00 AM EST Office Visit [facility] [address] [place] [id number] Charu Hernandez APRN [address] [facility] [address] [address] 11/01/2025 11:00 AM EST Office Visit [facility] UROLOG[facility] [address] [place] [address] [address] [place] [address] Demi Palomares PA-C [address] [place] [address] [address] [place] [address] 11/20/2025 2:00 PM EST Appointment [facility] [address] [place] [address] 11/29/2025 9:30 AM EST Office Visit [facility] [address] [place] [address] Alaina Hayes APRN [address] [place] [address] 12/13/2025 1:45 PM EST Office Visit [facility] ENDOCRINOLOGY [address] [facility] [address] [place] [address] Katrina Garrett MD [address] [facility] [address] [place] [id number] Scheduled Orders Name Type Priority Associated Diagnoses Orde r Schedule Lipid Panel Lab Routine Mixed hyperlipidemia Expected: 11/08/2025 (Approximate), Expires: 08/09/2026 Scheduled Procedures Name Priority Associated Diagnoses Date/Ti me CV CAROTID CEREBRAL ANGIOGRA M BILATERAL History of TIA (transient ischemic attack) documented as of this encounter Procedures Procedure Name Priority Date/Time Associated Diagnosis Comments ECG 12-LEAD Routine 08/09/2025 1:36 PM EDT Carotid stenosis, bilateral documented in this encounter Results * ECG 12-LEAD (08/09/2025 1:36 PM EDT) Narrative Joey Romero RegSched Rep - 08/09/2025 1:36 PM EDT Alaina Hayes APRN 08/09/2025 2:07 PM ECG 12 Lead Date/Time: 08/09/2025 1:36 PM Performed by: Alaina Hayes APRN Authorized by: Alaina Hayes APRN Comparison: compared with previous ECG from 07/26/2025 Comparison to previous ECG: SR with marked ST abnormality, possible subendocardial injury Rhythm: sinus rhythm Rate: normal BPM: 94 QRS axis: normal Other findings: T wave abnormality Clinical impression: abnormal EKG Comments: SR with nonspecific t wave abnormality Procedure Note Alaina Hayes, GAMALIEL - 08/09/2025 1:00 PM EDT Images from the original note were not included. Cardiovascular [facility] Sleep [facility]ing Provider Note Date: 08/09/2025 Name: Brynn Cox : 1965 PCP: Araceli Doyle MD Chief Complaint Patient presents with Hypertension Subjective History of Present Illness History of Present Illness The patient is a 60-year-old female who presents for hosptial f/utransient ischemic attack (TIA), hypertension, and hyperlipidemia. She recently experienced a transient ischemic attack and was hospitalizedon 07/27/2025 at [facility]. During her hospital stay, she underwent severaltests, including a carotid ultrasound and a CT scan of the head and neck.The ultrasound did not reveal any stenosis on either side, but the CT scanrevealed occlusion of the supraclinoid left internal carotid artery withminimal opacification of the cavernous and petrous segments. Left anteriorcerebral and middle cerebral arteries are supplied by a patent anteriorcommunicating artery. High-grade stenosis of the supraclinoid rightinternal carotid artery. She was informed that her next appointment wouldbe with the stroke unit at [facility] to further investigate the scanresults. Prior to her hospitalization, she was recovering from a urinarytract infection (UTI). She reports no chest pressure or dizziness. She hasan upcoming appointment with neurology on 08/25/2025. She is currentlyunable to drive or climb stairs. Upon hospital discharge she was startedon aspirin and Plavix. She has a history of high blood pressure, which is managed with Qviqfevxef24bq daily. Her blood pressure readings were normal during her hospitalstay and remain stable today. She has made significant dietary changes, including eliminating sugar, andhas started taking fish oil supplements. Has history of hyperlipidemiaand is currently on atorvastatin 80 mg. SOCIAL HISTORY Exercise: Walking up and down the driveway, stretching. Diet: No sugar, consuming fish oils. FAMILY HISTORY - Mother: Open heart surgery - Father: Open heart surgery Cardiology and Sleep Related Problems 1. Insomnia 2. HTN 3. HPL 4. Anxiety/Depression 5. Slbpchim-sbbiyij-ruyoqmapq brittle 6. Family history of significant CAD; insurance denied RORY 7. TIA 07/27/2025 07/26/2025 CT Angiogram head and neck - Occlusion of the supraclinoid left internal carotid artery with minimalopacification of the cavernous and petrous segments. Left anteriorcerebral and middle cerebral arteries are supplied by a patent anteriorcommunicating artery. - High-grade stenosis of the supraclinoid right internal carotid artery. - No evidence of intracranial aneurysm. 07/27/2025 Carotid Duplex - R ICA demonstrates normal flow without evidence of hemodynamicallysignificant stenosis - l ICA demonstrates normal flow without evidence of hemodynamicallysignificant stenosis 07/27/2025 ECHO -EF 56-60% - Left ventricular wall thickness consistent with hypertrophy - Saline test results are negative - Trace to mild pulmonic valve regurgitation present 10/02/2023 echo-normal EF, grade 1 diastolic dysfunction, mild LVH,quality of images were limited due to breast implants. Allergies Allergen Reactions Codeine GI Intolerance Vomiting Sulfa Antibiotics GI Intolerance vomiting Current Outpatient Medications: aspirin 81 MG chewable tablet, Chew 1 tablet Daily., Disp: 90 tablet,Rfl: 2 atorvastatin (LIPITOR) 80 MG tablet, Take 1 tablet by mouth Daily.,Disp: , Rfl: carvedilol (COREG) 25 MG tablet, Take 1 tablet by mouth Every 12(Twelve) Hours. (Patient taking differently: Take 1 tablet by mouth Every12 (Twelve) Hours. Patients states only taking one time per day), Disp: ,Rfl: clopidogrel (PLAVIX) 75 MG tablet, Take 1 tablet by mouth Daily., Disp:90 tablet, Rfl: 2 Continuous Glucose Sensor (FreeStyle Jovita 3 Plus Sensor), Use asdirected every 15 days, Disp: 6 each, Rfl: 0 Continuous Glucose Sensor (FreeStyle Jovita 3 Sensor) mis, Inject 1 eachunder the skin into the appropriate area as directed Every 14 (Fourteen)Days., Disp: 2 each, Rfl: 6 estradiol (VAGIFEM) 10 MCG tablet vaginal tablet, Insert 1 tablet intothe vagina 2 (Two) Times a Week., Disp: , Rfl: Insulin Glargine (BASAGLAR KWIKPEN) 100 UNIT/ML injection pen, Inject 48Units under the skin into the appropriate area as directed Daily. (Patienttaking differently: Inject 40 Units under the skin into the appropriatearea as directed Daily. Takes 40 in morning and 16 units at night), Disp:45 mL, Rfl: 1 lisinopril (PRINIVIL,ZESTRIL) 10 MG tablet, Take 1 tablet by mouthDaily., Disp: , Rfl: Mounjaro 7.5 MG/0.5ML solution auto-injector, Inject 7.5 mg under theskin into the appropriate area as directed 1 (One) Time Per Week., Disp: 6mL, Rfl: 1 venlafaxine XR (EFFEXOR-XR) 75 MG 24 hr capsule, Take 1 capsule by mouthDaily., Disp: , Rfl: ezetimibe (Zetia) 10 MG tablet, Take 1 tablet by mouth Daily., Disp: 30tablet, Rfl: 11 Past Medical History: Diagnosis Date Otitis media [...] Drug use: Never Sexual activity: Defer Objective Vital Signs: BP 138/74 Pulse 102 Ht 167.6 cm (66 ) Wt 72.6 kg (160 lb) LlE221% BMI 25.82 kg/m Estimated body mass index is 25.82 kg/m as calculated from thefollowing: Height as of this encounter: 167.6 cm (66 ). Weight as of this encounter: 72.6 kg (160 lb). Physical Exam Constitutional: Appearance: Normal appearance. She is well-developed. HENT: Head: Normocephalic and atraumatic. Cardiovascular: Rate and Rhythm: Normal rate and regular rhythm. Heart sounds: Normal heart sounds. No murmur heard. Pulmonary: Breath sounds: Normal breath sounds. No wheezing or rhonchi. Musculoskeletal: Right lower leg: No edema. Left lower leg: No edema. Skin: Capillary Refill: Capillary refill takes less than 2 seconds. Coloration: Skin is not cyanotic. Nails: There is no clubbing. Neurological: Mental Status: She is alert and oriented to person, place, and time. Motor: No weakness. Gait: Gait normal. Psychiatric: Mood and Affect: Mood normal. Behavior: Behavior is cooperative. Thought Content: Thought content normal. ECG 12 Lead Date/Time: 08/09/2025 1:36 PM Performed by: Alaina Hayes APRN Authorized by: Alaina Hayes APRN Comparison: compared with previousECG from 07/26/2025 Comparison to previous ECG: SR with marked ST abnormality, possiblesubendocardial injury Rhythm: sinus rhythm Rate: normal BPM: 94 QRS axis: normal Other findings: T wave abnormality Clinical impression: abnormal EKG Comments: SR with nonspecific t wave abnormality Results Labs - Cholesterol: 07/27/2025, 133 - LDL: 07/27/2025, 82 - HDL: 07/27/2025, 30 Imaging - Carotid ultrasound: No stenosis on the left or right - CT of the head and neck: Stenosis on the left side with collateral flowand stenosis on the right side. High grade stenosis of the supraclinoidright internal carotid artery and occlusion of the left internal carotidartery with minimal opacification and some collateral flow Assessment and Plan Assessment & Plan Carotid stenosis, bilateral Orders: Ambulatory Referral to Vascular Surgery Transient ischemic attack (TIA) Mixed hyperlipidemia Orders: ezetimibe (Zetia) 10 MG tablet; Take 1 tablet by mouth Daily. Lipid Panel; Future Essential hypertension Assessment & Plan 1. Carotid Stenosis - Referral to a vascular surgeon, Dr. Scott Rhodes, for further evaluationand potential surgical intervention. - Continue current medications: aspirin and Plavix. - Continue Carvedilol 25mg daily 2. TIA - Neurology appointment scheduled for 08/25/2025 to monitor brain functionand any deficits. 2. Hypertension: - Maintain current medication regimen. - Continue monitoring blood pressure regularly. - Advised to maintain a healthy diet and lifestyle modifications tosupport blood pressure control. 3. Hyperlipidemia: - Continue atorvastatin 80 mg. - Add Zetia to the regimen to help lower LDL levels. - Repeat lipid panel in 3 months to monitor progress. - Goal to reduce LDL to <70. - Patient education on the importance of diet and exercise in managingcholesterol levels. - Discussed potential side effects of Zetia . Follow-up: 3-month follow-up appointment scheduled. Recommendations: ER if symptoms increase and Report if any new/changingsymptoms immediately Follow Up Return in about 3 months (around 11/08/2025) for Next scheduled followup. Patient or patient inbound customer service representative verbalized consent for the use ofAmbient Listening during the visit with Alaina Hayes APRN for chartdocumentation. 08/09/2025 13:40 EDT Alaina Hayes APRN Cardiology and [facility] 08/09/2025 Please note that this explicitly excludes time spent on other separatebillable services such as performing procedures or test interpretation,when applicable. us Alaina Hayes APRN ECG ORDERABLES Final Resu lt documented in this encounter Visit Diagnoses Diagnosis Carotid stenosis, bilateral- Primary Occlusion and stenosis of carotid artery without mention of cerebral infarction Transient ischemic attack (TIA) Unspecified transient cerebral ischemia Mixed hyperlipidemia Essential hypertension Unspecified essential hypertension documented in this encounter Care Teams Hybrid Technologist Relationship Specialty Start Date End Date Araceli Doyle MD PCP - General Family Medicine 03/19/22 documented as of this encounter
--- OUTSIDE RECORDS SUMMARY | 2025-08-17 09:30 | XMS_ITS | Encounter Summary ---
Author Organization [facility] Address [address] [place] [address] Care Team Providers Care Senior It Engineer Name Role Phone Araceli Doyle MD Primary Care Provider [phone] Reason for Referral * Physical Therapy (Routine) - Pending Review Specialty Diagnoses / Procedures Referred By Owen mcbride Referred To Contact Physical Therapy Diagnoses Incomplete bladder emptying POP-Q stage 3 cystocele Weakness of pelvic floor Procedures MA OFFICE/OUTPATIENT NEW MODERATE MDM 45 MINUTES Demi Palomares PA-C [address] [place] [address] Phone: tel: fax: RESULTS PHYSIOTHERAPY - ERAN MAR [address] [facility] [place] [address] Phone: tel: fax: Referral ID Status Reason Start Date Expiration Date Visits Requested Visits Authorized [id number] Pending Review Specialty Services Required 08/17/2025 11/16/2026 1 1 Scheduling Instructions Pelvic Floor Referral * Physical Therapy (Routine) - Closed Specialty Diagnoses / Procedures Referred By Owen mcbride Referred To Contact Physical Therapy Diagnoses Incomplete bladder emptying Procedures MA OFFICE/OUTPATIENT NEW MODERATE MDM 45 MINUTES Demi Palomares PA-C [address] [facility] [place] [address] Phone: tel: fax: RESULTS PHYSIOTHERAPY - DILLAN TIFFANIE [address] [place] [address] Phone: tel: fax: Referral ID Status Reason Start Date Expiration Date V isits Requested Visits Authorized [id number] Closed Specialty Services Required 08/17/2025 11/16/2026 1 1 Scheduling Instructions Pelvic Floor Referral - Shakir Serrano Reason for Visit * Reason Comments recurrent UTI * Consultation (Routine) - Closed Specialty Diagnoses / Procedures Referred By Contac t Referred To Contact Urology Diagnoses Urinary tract infection, site not specified Araceli Doyle MD [address] [facility] [address] [place] [address] Phone: tel: fax: [facility] UROLOGY [address] [facility] [address] [place] [address] Phone: tel: fax: Referral ID Status Reason Start Date Expiration Date Visits Re quested Visits Authorized [id number] Closed 07/24/2025 10/23/2026 1 1 Encounter Details Date Type Department Care Team (Late st Contact Info) Description 08/17/2025 9:30 AM EDT Office Visit [facility] UROLOGY [address] [facility] [address] [place] [id number] Demi Palomares PA-C [address] [facility] [place] [address] Incomplete bladder emptying (Primary Dx); POP-Q stage 3 cystocele; Weakness of pelvic floor Social History Tobacco Use Types Packs/Day Years Used Date Smoking Tobacco: Never Passive Smoke Exposure: Past Smokeless Tobacco: Never Tobacco Cessation:Counseling Given: Not Answered Alcohol Use Standard Drinks/Week Comments Not Currently 0 (1 standard drink = 0.6 oz pur e alcohol) [facility] Utilities Answer Date Recorded In the past 12 months has [employer], gas, oil, or water [employer] threatened to shut off services in your [...] on file documented as of this encounter Progress Notes * Zara Marques MA - 08/17/2025 9:30 AM EDTAddended by: ZARA MARQUES on: 08/17/2025 12:04 PM Modules accepted: Orders * Zara Marques MA - 08/17/2025 9:30 AM EDTAddended by: ZARA MARQUES on: 08/17/2025 12:04 PM Modules accepted: Orders * Demi Palomares PA-C - 08/17/2025 9:30 AM EDT Images from the original note were not included. UTI Office Visit Patient Name: Brynn Cox : 1965 Chief Complaint: UTI Chief Complaint Patient presents with ??? recurrent UTI Referring Provider: Araceli Doyle MD History of Present Illness: Brooke is a 60 y.o. type 2 diabetes, peripheral neuropathy, diabeticretinopathy, hypertension, hyperlipidemia who presents today for UTI. She presents to appointment with her . She had a UTI at the end of June. As she was finishing antibiotics she still had dysuria, but it ultimately resolved. She went to ER 07/26/2025 with syncope and was diagnosed with TIA. She was told she had a stroke in the past likely related to longstanding uncontrolled diabetes- CTA showed left ICA occlusion with collateral flow. She has had diabetes for at least 10 years and it was controlled majority of the time but has improved very recently. Her A1c was 6.9 07/2025. She reports chronic urinary frequency, but is otherwise not having any urinary symptoms. No dysuria, gross hematuria, urinary incontinence, difficulty emptying bladder. Urine today negative for bloodand infection. PVR elevated at 229 mL. In and out cath removed 300 mL from bladder. He has not had recent general anesthesia. She has hx of 3 vaginal births. Has not noticed bulge in the vaginal areathat may suggest prolapse. She reports hx of frequency UTIs. Never smoked Fam hx neg for urologic malignancy Subjective Review of System: Review of Systems Genitourinary: Positive for frequency. All other systems reviewed and are negative. I have reviewed the ROS documented by my clinical staff, I have updated appropriately and I agree. Demi Palomares PA-C Past Medical History: Past Medical History: Diagnosis Date ??? Essential hypertension ??? Hyperlipidemia ??? Hypertension ??? Otitis media 04/20/2024 ??? Type 2 diabetes mellitus ??? Vitamin D deficiency Past Surgical History: Past Surgical History: Procedure Laterality Date ??? BREAST AUGMENTATION ??? CHOLECYSTECTOMY ??? TUBAL ABDOMINAL LIGATION Medications: Current Outpatient Medications: ??? aspirin 81 MG chewable tablet, Chew 1 tablet Daily., Disp: 90 tablet, Rfl: 2 ??? atorvastatin (LIPITOR) 80 MG tablet, Take 1 tablet by mouth Daily., Disp: , Rfl: ??? carvedilol (COREG) 25 MG tablet, Take 1 tablet by mouth Every 12 (Twelve) Hours. (Patient taking differently: Take 1 tablet by mouth Every 12 (Twelve) Hours. Patients states only taking one time per day), Disp: , Rfl: ??? clopidogrel (PLAVIX) 75 MG tablet, Take 1 tablet by mouth Daily., Disp: 90 tablet, Rfl: 2 ??? Continuous Glucose Sensor (FreeStyle Jovita 3 Plus Sensor), Use as directed every 15 days, Disp:6 each, Rfl: 0 ??? Continuous Glucose Sensor (FreeStyle Jovita 3 Sensor) mis, Inject 1 each under the skin into the appropriate area as directed Every 14 (Fourteen) Days., Disp: 2 each, Rfl: 6 ??? estradiol (VAGIFEM) 10 MCG tablet vaginal tablet, Insert 1 tablet into the vagina 2 (Two) Timesa Week., Disp: , Rfl: ??? ezetimibe (Zetia) 10 MG tablet, Take 1 tablet by mouth Daily., Disp: 30 tablet, Rfl: 11 ??? Insulin Glargine (BASAGLAR KWIKPEN) 100 UNIT/ML injection pen, Inject 48 Units under the skin into the appropriate area as directed Daily. (Patient taking differently: Inject 40 Units under the skin into the appropriate area as directed Daily. Takes 40 in morning and 16 units at night), Disp: 45 mL, Rfl: 1 ??? lisinopril (PRINIVIL,ZESTRIL) 10 MG tablet, Take 1 tablet by mouth Daily., Disp: , Rfl: ??? Mounjaro 7.5 MG/0.5ML solution auto-injector, Inject 7.5 mg under the skin into the appropriatearea as directed 1 (One) Time Per Week., Disp: 6 mL, Rfl: 1 ??? venlafaxine XR (EFFEXOR-XR) 75 MG 24 hr capsule, Take 1 capsule by mouth Daily., Disp: , Rfl: ??? tamsulosin (FLOMAX) 0.4 MG capsule 24 hr capsule, Take 1 capsule by mouth Daily., Disp: 30 capsule, Rfl: 1 Allergies: Allergies Allergen Reactions ??? Codeine GI Intolerance Vomiting ??? Sulfa Antibiotics GI Intolerance vomiting Social History: Social History Socioeconomic History ??? Marital status: Tobacco Use ??? Smoking status: Never Passive exposure: Past ??? Smokeless tobacco: Never Vaping Use ??? Vaping status: Never Used Substance and Sexual Activity ??? Alcohol use: Not Currently ??? Drug use: Never ??? Sexual activity: Yes Partners: Male Family History: Family History Problem Relation Age of Onset ??? Diabetes Mother ??? Coronary artery disease Mother ??? Coronary artery disease Father ??? Hypertension Father ??? Diabetes Father ??? Heart attack Father ??? Cancer Maternal Grandmother ??? Heart attack Maternal Grandmother Bladder & Bowel Symptom Questionnaire How often do you usually urinate during the day ? 2 - About every 2-3 hours 2. How many timed do you urinate at night? 1 - 2 times at night 3. What is the reason that you usually urinate? 1 - Mild urge (can delay over an hour) 4. Once you get the urge to go, how long can you comfortably delay? 1 - 30-60 min 5. How often do you get a sudden urge that makes you hargrove to the bathroom? 1 - Rarely 6. How often does a sudden urge to urinate result in you leaking urine or wetting pads? 0 - Never 7. In your opinion, how good is your bladder control? 0 - Total control 8. Do you have accidental bowel leakage? no 9. Do you have difficulty fully emptying your bladder? yes 10. Do you experience accidental leakage when performing some physical activity such as coughing, sneezing, laughing or exercise? no 11. Have you tried medications to help improve your symptoms? no 12. Would you be interested in learning about a long-lasting option that may help you with your symptoms? no Total Score 6 0-7 (Mild) 8-16 (Moderate) 17-28 (Severe) Objective Physical Exam: Vital Signs: There were no vitals filed for this visit. There is no height or weight on file to calculate BMI. Physical Exam Vitals and nursing note reviewed. Constitutional: General: She is not in acute distress. Appearance: Normal appearance. She is not ill-appearing. HENT: Head: Normocephalic and atraumatic. Genitourinary: Comments: Pelvic exam consistent with grade 3 cystocele with valsalva, significant pelvic floor muscle weakness with internal exam Neurological: Mental Status: She is alert. Psychiatric: Mood and Affect: Mood normal. Behavior: Behavior normal. Thought Content: Thought content normal. Labs: Brief Urine Lab Results (Last result in the past 365 days) Color Clarity Blood Leuk Est Nitrite Protein CREAT Urine HCG 07/26/25 1827 Dark Yellow Clear Negative Small (1+) Negative >=300 mg/dL (3+) Lab Results Component Value Date GLUCOSE 78 07/27/2025 CALCIUM 8.7 07/27/2025 NA 138 07/27/2025 K 3.8 07/27/2025 CO2 20.1 (L) 07/27/2025 CL 104 07/27/2025 BUN 17.2 07/27/2025 CREATININE 0.88 07/27/2025 EGFRIFAFRI 110 12/22/2019 EGFRIFNONA 96 12/22/2019 BCR 19.5 07/27/2025 ANIONGAP 13.9 07/27/2025 Lab Results Component Value Date WBC 11.73 (H) 07/27/2025 HGB 11.9 (L) 07/27/2025 HCT 37.3 07/27/2025 MCV 99.5 (H) 07/27/2025 PLT 193 07/27/2025 Images: MRI Brain Without Contrast Result Date: 07/26/2025 [...] MD 07/26/2025 11:08 PM EDT Workstation ID: [id number] [facility] CT CEREBRAL PERFUSION WITH & WITHOUT CONTRAST Result Date: 07/26/2025 1. Area of suggested ischemic brain at risk involving the left MCA territory without core infarction. Electronically Signed: Saturnino Macdonald MD 07/26/2025 9:07 PM EDT Workstation ID: [id number] [facility] CT Angiogram Head Result Date: 07/26/2025 [...] MD 07/26/2025 7:59 PM EDT Workstation ID: [id number] CT Angiogram Neck Result Date: 07/26/2025 Impression: 1.Occlusion of the supraclinoid left internal carotid artery with minimal opacificationof the cavernous and petrous segments. Left anterior cerebral and middle cerebral arteries are supplied by a patent anterior communicating artery. 2.High-grade stenosis of the supraclinoid right internal carotid artery. 3.No evidence of intracranial aneurysm. Electronically Signed: Guille Miller MD 07/26/2025 7:59 PM EDT Workstation ID: [id number] CT Head Without Contrast Result Date: 07/26/2025 Impression: No acute intracranial findings. Electronically Signed: Saturnino Macdonald MD 07/26/2025 7:48 PM EDT Workstation ID: [id number] Measures: Tobacco: Brynn Cox reports that she has never smoked. She has been exposed to tobacco smoke. She has never used smokeless tobacco. Assessment / Plan Assessment: Brooke is a 60 y.o. who presented today with recent UTI. She is currently not having any UTI symptoms. Urine negative for blood and infection. Urine will be sent for Guidance PCR for a more thorough analysis for uropathogens. She has incomplete bladder emptying with 300 mL urine removed from bladder with in and out catheter. She has grade 3 cystocele on exam with significant weakness of pelvicfloor musculature. We discussed etiology of incomplete bladder emptying is likely a combination of cystocele and neurogenic bladder from diabetes and/or history of CVA. For cystocele we discussed option of pelvic floor therapy, but she may also need surgical repair. She would like to start with pelvic floor therapy. Referral placed for pelvic floor therapy in [place], due to location. Will proceed with urodynamics to assess function of bladder. In the meantime she will start Flomax and startCIC twice daily and keep a log of how much urine she is draining. Discussed increased risk of UTIs with incomplete bladder emptying. Diagnoses and all orders for this visit: 1. Incomplete bladder emptying (Primary) - tamsulosin (FLOMAX) 0.4 MG capsule 24 hr capsule; Take 1 capsule by mouth Daily. Dispense: 30 capsule; Refill: 1 - Ambulatory Referral to Physical Therapy for Evaluation & Treatment - Ambulatory Referral to Physical Therapy for Evaluation & Treatment 2. POP-Q stage 3 cystocele - Ambulatory Referral to Physical Therapy for Evaluation & Treatment 3. Weakness of pelvic floor - Ambulatory Referral to Physical Therapy for Evaluation & Treatment Follow Up: Return schedule for next urodynamics with f/u 2 weeks after. Demi Palomares PA-C [facility] [place] documented in this encounter Plan of Treatment Upcoming Encounters Date Type Department Care Team (Late st Contact Info) Description 09/27/2025 10:00 AM EST Office Visit [facility] NEUROLOGY [address] [facility] [address] [place] [address] Charu Hernandez, BAND HEAD SAW OPERATOR [address] [facility] [address] [place] [address] 11/01/2025 11:00 AM EST Office Visit [facility] UROLOGY [address] [facility] [address] [place] [id number] Demi Palomares PA-C [address] [facility] [place] [address] 11/20/2025 2:00 PM EST Appointment [facility] C[facility] [address] [facility] 3rd [place] [address] 11/29/2025 9:30 AM EST Office Visit [facility] CARDIOLOGY [address] [place] [address] Alaina Hayes, BAND HEAD SAW OPERATOR [address] [place] [address] 12/13/2025 1:45 PM EST Office Visit [facility] ENDOCRINOLOGY [address] [facility] [address] [place] [address] Katrina Garrett MD [address] [facility] [address] [place] [address] Scheduled Procedures Name Priority Associated Diagnoses Date/Ti me CV CAROTID CEREBRAL ANGIOGRA M BILATERAL History of TIA (transient ischemic attack) documented as of this encounter Procedures Procedure Name Priority Date/Time Associated Diagnosis Comments URINALYSIS, MICROSCOPIC ONLY Routine 08/17/2025 12:09 PM EDT Incomplete bladder emptying POP-Q stage 3 cystocele Weakness of pelvic floor URINALYSIS AND MICROSCOPIC Routine 08/17/2025 12:09 PM EDT Incomplete bladder emptying POP-Q stage 3 cystocele Weakness of pelvic floor URINALYSIS WITHOUT MICROSCOPIC (NO CULTURE) Routine 08/17/2025 12:09 PM EDT Incomplete bladder emptying POP-Q stage 3 cystocele Weakness of pelvic floor POCT URINALYSIS DIPSTICK, AUTOMATED Routine 08/17/2025 12:03 PM EDT Incomplete bladder emptying POP-Q stage 3 cystocele Weakness of pelvic floor SCANNED - LABS 08/17/2025 documented in this encounter Results * Urinalysis, Microscopic Only - Urine, Clean Catch (08/17/2025 12:09 PM EDT) RBC, UA 0-2 None Seen, 0-2 /HPF 08/17/2025 10:55 PM EDT [facility] WBC, UA 0-2 None Seen, 0-2 /HPF 08/17/2025 10:55 PM EDT [facility] Bacteria, UA None Seen None Seen /HPF 08/17/2025 10:55 PM EDT [facility] Squamous Epithelial Cells, UA 0-2 None Seen, 0-2 /HPF 08/17/2025 10:55 PM EDT [facility] Hyaline Casts, UA None Seen None Seen /LPF 08/17/2025 10:55 PM EDT [facility] Methodology Automated Microscopy 08/17/2025 10:55 PM EDT [facility] Urine Urine specimen obtained by clean catch procedure / Unknown Collection / Unknown 08/17/2025 12:09 PM EDT 08/17/2025 12:09 PM EDT us Demi Palomares PA-C URINE ORDERABLES Final Res ult [facility]
[address] [place] [address], * (ABNORMAL) Urinalysis without microscopic (no culture) - Urine, Clean Catch (08/17/2025 12:09 PM EDT) Color, UA Yellow Yellow, Straw 08/17/2025 10:47 PM EDT [facility] Appearance, UA Clear Clear 08/17/2025 10:47 PM EDT [facility] pH, UA 6.0 5.0 - 8.0 08/17/2025 10:47 PM EDT [facility] Specific [place], UA 1.021 1.005 - 1.030 08/17/2025 10:47 PM EDT [facility] Glucose, UA >=1000 mg/dL (3+)(A) Negative 08/17/2025 10:47 PM EDT [facility] Ketones, UA Negative Negative 08/17/2025 10:47 PM EDT [facility] Bilirubin, UA Negative Negative 08/17/2025 10:47 PM EDT [facility] Blood, UA Negative Negative 08/17/2025 10:47 PM EDT [facility] Protein, UA 30 mg/dL (1+)(A) Negative 08/17/2025 10:47 PM EDT [facility] Leuk Esterase, UA Negative Negative 08/17[facility]25 [facility] Nitrite, UA Negative Negative 08/17/2025 10:47 PM EDT [facility] Urobilinogen, UA 1.0 E.U./dL 0.2 - 1.0 E.U./dL 08/17/2025 10:47 PM EDT [facility] Urine Urine specimen obtained by clean catch procedure / Unknown Collection / Unknown 08/17/2025 12:09 PM EDT 08/17/2025 12:09 PM EDT us Demi Palomares PA-C URINE ORDERABLES Final Res ult [facility]
[address] [place] [address], * (ABNORMAL) POC Urinalysis Dipstick, Automated (08/17/2025 12:03 PM EDT) Color Dark Yellow Yellow, Straw, Dark Yellow, Kristan [facility] Clarity, UA Clear Clear [facility] Specific [place] 1.010 1.005 - 1.030 [facility] pH, Urine 6.0 5.0 - 8.0 [facility] Leukocytes Negative Negative [facility] Nitrite, UA Negative Negative [facility] Protein, POC 1+(A) Negative mg/dL [facility] Glucose, UA 3+(A) Negative mg/dL [facility] Ketones, UA Negative Negative [facility] Urobilinogen, UA 0.2 E.U./dL Normal, 0.2 E.U./dL [facility] Bilirubin Negative Negative [facility] Blood, UA Negative Negative [facility] Lot Number [id number] [facility] Expiration Date 03/28/2027 [facility] Urine 08/17/2025 12:0 3 PM EDT us Demi SANCHES-C POINT OF CARE TEST ORDERAB LES Final Result [facility]
[address] [place] [address], * LABS SCANNED (08/17/2025) us Veemil Palomares PA-C LAB BLOOD ORDERABLES Final Result documented in this encounter Visit Diagnoses Diagnosis Incomplete bladder emptying- Primary POP-Q stage 3 cystocele Weakness of pelvic floor documented in this encounter Care Teams Senior It Engineer Relationship Specialty Start Date End Date Araceli Doyle MD PCP - General Family Medicine 03/19/22 documented as of this encounter
--- OUTSIDE RECORDS SUMMARY | 2025-08-21 16:21 | XMS_ITS | Encounter Summary ---
Author Organization 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 Role Phone Araceli Doyle MD Primary Care Provider [phone] Reason for Visit * Reason Comments Stroke * Auth/Cert (Routine) Specialty Diagnoses / Procedures Referred By Owen mcbride Referred To Contact Diagnoses ICAO (internal carotid artery occlusion) Referral ID Status Reason Start Date Expiration Date Visits Re quested Visits Authorized [id number] 1 1 Encounter Details Date Type Department Care Team (Late st Contact Info) Description 08/21/2025 4:21 PM EDT - 08/23/2025 12:36 PM EDT Hospital Encounter [facility] [address] [place] [id number] Ariel Washington MD [address] [facility] [address] [place] [address] Clotilde Garcia MD [address] [facility] [address] [place] [address] Beto Mars MD [address] [facility] 4Th [place] [address] Amanda Whitlock DO [address] [facility] [address] [place] [address] TIA (transient ischemic attack) (Primary Dx) Discharge Disposition: Home or Self Care Social History Tobacco Use Types Packs/Day Years Used Date Smoking Tobacco: Never Passive Smoke Exposure: Past Smokeless Tobacco: Never Alcohol Use Standard Drinks/Week Comments Not Currently 0 (1 standard drink = 0.6 oz pur e alcohol) [facility] Utilities Answer Date Recorded In the past 12 months has th e electric, gas, oil, or water company threatened to shut off services in your home? No 08/22/2025 AUDIT-C Answer Date Recorded Q1: How often do you have a drink containing alc ohol? Monthly or less 08/21/2025 Q2: How many drinks containi ng alcohol do you have on a typical day when you are drinking? 1 or 2 08/21/2025 Q3: How often do you have si x or more drinks on one occasion? Never 08/21/2025 Overall Financial Resource Strain (CARDIA) Answe r Date Recorded How hard is it for you to pa y for the very basics like food, housing, medical care, and heating? Not very hard 08/22/2025 [facility] - Occupational Stress Questionnaire Answer Date Recorded Do you feel stress - tense, restless, nervous, or anxious, or unable to sleep at night because your mind is troubled all the time - these days? Not at all 08/22/2025 Exercise Vital Sign Answer Date Recorde d On average, how many days pe r week do you engage in moderate to strenuous exercise (like a brisk walk)? 5 days 08/22/2025 On average, how many minutes do you engage in exercise at this level? 20 min 08/22/2025 Hunger Vital Sign Answer Date Recorded Within the past 12 months, y ou worried that your food would run out before you got the money to buy more. Never true 08/22/20 25 Within the past 12 months, t he food you bought just didn't last and you didn't have money to get more. Never true 08/22/2025 PRAPARE - Transportation Answer Date Re corded In the past 12 months, has l ack of transportation kept you from medical appointments or from getting medications? No 05/2025 In the past 12 months, has l ack of transportation kept you from meetings, work, or from getting things needed for daily living? No 08/22/2025 Abuse Screen Answer Date Recorded Feels Unsafe at Home or Work/School no 08/21/2025 Feels Threatened by Someone no 04/2025 Does Anyone Try to Keep You From Having Contact with Others or Doing Things Outside Your Home? no 08/21/2025 Physical Signs of Abuse Present no 08/21/2025 Housing Stability Answer Date Recorded Current Living Arrangements home 05/2025 Potentially Unsafe Housing Conditions none 08/22/2025 Family and Community Support Answer Zechariah e Recorded If for any reason you need h elp with day-to-day activities such as bathing, preparing meals, shopping, managing finances, etc., do you get the help you need? I get all the help I need 08/22/2025 How often do you feel lonely or isolated from those around you? Never 08/22/2025 Employment Answer Date Recorded Do you want help finding or keeping work or a job? I do not need or want help 08/22/2025 Disabilities Answer Date Recorded Difficulty Concentrating, Remembering or Making Decisions yes 08/21/2025 Difficulty Managing Errands Independently no 08/21/2025 Education Answer Date Recorded Do you want help with school or training? For example, starting or completing job training or getting a high school diploma, GED or equivalent No 08/22/2025 Preferred Language Maori 08/22/2025 PHQ-2 Answer Date Recorded Patient Health Questionnaire-2 Score 0 08/22/2025 Comments Unknown Sex and Gender Information Value Date Recorded Sex Assigned at Not on file Legal Sex Female 10:07 AM EDT Gender Identity Not on file Sexual Orientation Not on file documented as of this encounter Last Filed Vital Signs Vital Sign Reading Time Taken Comments Blood Pressure 145/81 08/23/2025 9:05 AM EDT Pulse 87 08/23/2025 5:25 AM EDT Temperature 36.8 C (98.2 F) 08/23/2025 9:05 AM EDT Respiratory Rate 16 08/23/2025 9:05 AM EDT Oxygen Saturation 97% 08/23/2025 5:25 AM EDT Inhaled Oxygen Concentration - - Weight 73.6 kg (162 lb 3.2 oz) 08/21/2025 4:19 P M EDT Height 170.2 cm (5' 7 ) 08/21/2025 4:19 PM EDT Body Mass Index 25.4 08/21/2025 4:19 PM EDT documented in this encounter Functional Status * Over the past 2 weeks, how often have you been bothered by any of the following problems? Question Answer Date of Assessment Author Patient Health Questionnaire -2 Score 0 08/22/2025 8:49 AM EDT Vandana Tena RN * Calculated C-SSRS Risk Score (Lifetime/Recent) Answer Date of Assessment Author No Risk Indicated 08/21/2025 4:24 PM EDT Kindra Valero RN * [place] Suicide Severity Rating Scale (Screener/Recent Self-Report) Question Answer Date of Assessment Author 1. Wish to be (Past 1 Month) No 025 4:24 PM EDT Kindra Valero RN 2. Non-Specific Active Suici susi Thoughts (Past 1 Month) No 08/21/2025 4:24 PM EDT Lani Valero ea, RN 6. Suicidal Behavior (Lifetime) No 4:24 PM EDT Kindra Valero RN * Question Answer Date of Assessment Author Little interest or pleasure in doing things Not at all 08/22/2025 8:49 AM EDT Vandana Tena RN Feeling down, depressed, or hopeless Not at all 08/22/2025 8:49 AM EDT Vandana Tena RN documented as of this encounter Discharge Summaries * Bebetoemerson Amanda Holger, DO - 08/23/2025 12:36 PM EDT Images from the original note were not included. [facility] DISCHARGE SUMMARY Patient Name: Brynn Cox : 1965 Date of Admission: 08/21/2025 4:21 PM Date of Discharge: 08/23/2025 Primary Care Physician: Araceli Doyle MD Consults Date and Time Order Name Status Description 08/21/2025 4:21 PM Inpatient Neurology Consult Stroke Hospital Course Presenting Problem: Dysarthria Active Hospital Problems Diagnosis POA ICAO (internal carotid artery occlusion) [I65.29] Yes Carotid stenosis, bilateral [I65.23] Yes Transient ischemic attack (TIA) [G45.9] Yes Facial droop [R29.810] Yes Type 2 diabetes mellitus with hyperlipidemia [E11.69, E78.5] Yes Essential hypertension [I10] Yes Type 2 diabetes mellitus with hyperglycemia [E11.65] Yes Mixed hyperlipidemia [E78.2] Yes Resolved Hospital Problems No resolved problems to display. Hospital Course: Brynn Cox is a 60 y.o. female with history of TIA, HTN, BL carotid stenosis, T2DM on insulin. She had a recent TIA in July and was started on DAPT however self discontinued plavix since then due to side effects. She presented to [facility] ED following an episode of L sided facial droop and dysarthria that -71 minutes. She was evaluated by tele neuro, loaded with DAPT. Transferred to [facility] for neurology evaluation. Left-sided facial droop, resolved Bilateral carotid stenosis -CT imaging shows areas of L ICA occlusion with distal reconstitution, right mod-severe stenosis CHARANJIT. Prolonged T max L MCA territory. - MRI brain shows multiple small patchy areas of pathologic restricted diffusion left frontal and parietal lobes. 2 new areas of restricted diffusion adjacent to anterior horn of left lateral ventricle. -Stroke team evaluated, continue ASA, Plavix. Apparently patient had missed prior to admission -neurosurgery consulted, will need to follow-up outpatient in 2 weeks - MRA head and neck reviewed -Echo in July with normal EF and negative bubble study - saw [facility] outpt[facility], who recommended no intervention from surgical standpoint - Discussed in depth with patient and as well as written instructions regarding blood pressure meds and management for monitoring at home CKD - monitor renal function DM2 - A1c 6.9 in 08/10 - Continue home regimen Discharge Follow Up Recommendations for outpatient labs/diagnostics: PCP in 1 week Neurosurgery clinic in 2 weeks Stroke clinic in 4 weeks Day of Discharge HPI: Doing okay, no complaints. at bedside. All questions answered prior to discharge Review of Systems Gen- No fevers, chills CV- No chest pain, palpitations Resp- No cough, dyspnea GI- No N/V/D, abd pain Vital Signs: Temp: [98.2 ??F (36.8 ??C)-98.5 ??F (36.9 ??C)] 98.2 ??F (36.8 ??C) Heart Rate: [85-100] 87 Resp: [16] 16 BP: (145-175)/(78-92) 145/81 Physical Exam: Constitutional: No acute distress, awake, alert HENT: NCAT, mucous membranes moist Respiratory: Respiratory effort normal Musculoskeletal: No bilateral ankle edema Psychiatric: Appropriate affect, cooperative Neurologic: Oriented x 3, speech clear Skin: No rashes Pertinent and/or Most Recent Results LAB RESULTS: Lab 08/23/25 1043 08/22/25 1618 08/21/25 1637 08/21/25 1635 WBC 6.82 5.57 9.63 -- HEMOGLOBIN 10.2* 9.4* 10.6* -- HEMOGLOBIN, POC -- -- -- 9.9* HEMATOCRIT 29.3* 27.6* 31.1* -- HEMATOCRIT POC -- -- -- 29* PLATELETS 222 236 248 -- NEUTROS ABS 5.01 -- 7.35* -- IMMATURE GRANS (ABS) 0.03 -- 0.02 -- LYMPHS ABS 1.24 -- 1.60 -- MONOS ABS 0.53 -- 0.65 -- EOS ABS 0.00 -- 0.00 -- MCV 93.6 91.4 92.0 -- PROTIME -- -- 12.9 -- APTT -- -- 28.8 -- Lab 08/23/25 1043 08/22/25 1617 08/21/25 1635 SODIUM 141 139 -- POTASSIUM 4.5 4.6 -- CHLORIDE 107 106 -- CO2 25.9 25.3 -- ANION GAP 8.1 7.7 -- BUN 15.2 17.5 -- CREATININE 0.94 0.89 1.50* EGFR 68.7 73.4 39.2* GLUCOSE 169* 125* -- CALCIUM 8.8 8.9 -- MAGNESIUM 2.3 1.9 -- PHOSPHORUS 3.4 -- -- Lab 08/23/25 1043 08/21/25 163 ALBUMIN 3.7 -- ALT (SGPT) -- 136* AST (SGOT) -- 47* Lab 08/21/25 163 PROTIME 12.9 INR 0.95 Brief Urine Lab Results (Last result in the past 365 days) Color Clarity Blood Leuk Est Nitrite Protein CREAT Urine HCG 08/17/25 1209 Yellow Clear Negative Negative Negative 30 mg/dL (1+) Microbiology Results (last 10 days) No results found for the last 240 hours. MRI Angiogram Head With & Without Contrast Result Date: 08/23/2025 MRI ANGIOGRAM NECK W CONTRAST, MRI ANGIOGRAM HEAD W WO CONTRAST Date of Exam: 08/23/2025 8:25 AM EDTIndication: icad / flow SEND TO [facility]. Comparison: 08/21/2025. Technique: Routine 3-D znze-cp-hlaber gradient echo imaging was obtained of the head and neck after the uneventful administration ofVueway. Findings: Patent great vessel origins. The subclavian arteries appear patent. The cervical right ICA is patent with 0% narrowing present by NASCET criteria. The left cervical ICA is attenuated along its entire course beyond a patent origin. The right cervical vertebral artery and left cervical vertebral artery are patent. Intracranially, the right ICA is patent. There is redemonstrated att enuation of the left petrous and cavernous segment ICA which appears likely occluded, with reconstitution of the communicating segment near the P-comm origin and with normal filling of the left anterior and middle cerebral arteries. There is also unchanged focal moderate to severe narrowing of the r ight ophthalmic and communicating segment ICA. The right MCA is patent. The vertebrobasilar system is patent. The posterior cerebral arteries appear normal in course and caliber. Impression: Redemonstrated long segment occlusion of the left intracranial ICA, with reconstitutionof the communicating segment near the P-comm origin. There is also unchanged focal moderate to severe narrowing of the right ophthalmic and communicating segment ICA. No new high-grade stenosis, occlusion or aneurysm. 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 Comparison: 08/21/2025. Technique: Routine 3-D bqvm-ng-sgwkmn gradient echo imaging was obtained of the head and neck after the uneventful administration ofVueway. Findings: Patent great vessel origins. The subclavian arteries appear patent. The cervical right ICA is patent with 0% narrowing present by NASCET criteria. The left cervical ICA is attenuated along its entire course beyond a patent origin. The right cervical vertebral artery and left cervical vertebral artery are patent. Intracranially, the right ICA is patent. There is redemonstrated att enuation of the left petrous and cavernous segment ICA which appears likely occluded, with reconstitution of the communicating segment near the P-comm origin and with normal filling of the left anterior and middle cerebral arteries. There is also unchanged focal moderate to severe narrowing of the r ight ophthalmic and communicating segment ICA. The right MCA is patent. The vertebrobasilar system is patent. The posterior cerebral arteries appear normal in course and caliber. Impression: Redemonstrated long segment occlusion of the left intracranial ICA, with reconstitutionof the communicating segment near the P-comm origin. There is also unchanged focal moderate to severe narrowing of the right ophthalmic and communicating segment ICA. No new high-grade stenosis, occlusion or aneurysm. Electronically Signed: Saurabh Prieto MD 08/23/2025 10:15 AM EDT Workstation ID: [id number] MRI Brain Without Contrast Result Date: 08/22/2025 MRI BRAIN WO CONTRAST Date of Exam: 08/21/2025 11:35 PM EDT Indication: Stroke, follow up Transient L facial droop, dysarthria and gait disturbance -chronic right ICA stenosis and left ICA occlusion. Comparison: MRI of the brain 07/26/2025; CT head 08/21/2025 Technique: Routine multiplanar/multisequence sequence images of the brain were obtained without contrast administration. Findings: There are multiple small patchy areas of pathologic restricted diffusion within the subcortical white matter and periventricular white matters of the left frontal and parietal lobes. There are 2 new more increased abnormal restricted diffusion seen adjacent to the anterior horn of the left lateral ventricle chest both measuring approximately 6 mm in size. There is no evidence of acute hemorrhage. There are no abnormal extra-axial fluid collections. Again seen is absence of the flow-void of the left petrous, cavernous and supraclinoid portions of the left internal carotid artery. The flow void of the leftmiddle cerebral artery appears to be patent. Please correlate with recent CT angiogram of the head. Impression: There are multiple small patchy areas of pathologic restricted diffusion in the left frontal and parietal lobes. There are 2 new areas of restricted diffusion seen adjacent to the anterior horn of the left lateral ventricle. There is no evidence of acute hemorrhage. Electronically Signed: Ck Arredondo MD 08/22/2025 4:24 AM EDT Workstation ID: [id number] CT Angiogram Head w AI Analysis of LVO Result Date: 08/21/2025 CT ANGIOGRAM HEAD W AI ANALYSIS OF LVO, CT CEREBRAL PERFUSION W WO CONTRAST, CT ANGIOGRAM NECK Dateof Exam: 08/21/2025 4:29 PM EDT Indication: Neuro Deficit, acute, Stroke suspected Neuro deficit, acute stroke suspected. Comparison: Head CT from today, CTA of the head and neck dated 07/26/2025 Technique: CTA of the head was performed after the uneventful intravenous administration of iodinated contrast. Reconstructed coronal and sagittal images were also obtained. In addition, a 3-D volume rendered image was created for interpretation. Automated exposure control and iterative reconstruction methods were used. FINDINGS: Vascular Findings: Atherosclerotic plaque is seen within the right carotid bifurcation and right carotid siphon. Probable moderate to severe stenosis within the right supraclinoid ICA again noted. The right common carotid, remainder of the right ICA, middle cerebral, anterior cerebral, vertebral, and posterior cerebral arteries are patent without abrupt cut off or aneurysmal dilation. Apparent occlusion of the left petrous, cavernous, and supraclinoid ICA with reconstitution of the left ICA terminus. Occlusion of the left cavernous and supraclinoid ICA may be new since 07/26/2025, or these segments may be patent but poorly opacified due to technical factors/contrastbolus timing. Left distal cervical ICA is somewhat diminutive . Left common carotid artery appears unremarkable. Left middle cerebral, anterior cerebral, vertebral, and posterior cerebral arteries are patent without abrupt cut off or aneurysmal dilation. Basilar artery appears patent and appears unremarkable. Non-vascular Findings: For description of nonvascular intracranial findings, please refer to the noncontrast head CT performed the same date. No acute abnormality is identified within the visualized soft tissue or bony structures of the neck. The visualized lung apices are clear. CT Perfusion: CBF (<30%) volume: 0 mL Tmax (>6.0s) volume: 27 mL Mismatch volume: 27 mL Mismatch ratio: Infinite 1.Apparent occlusion of the left petrous, cavernous, and supraclinoid ICA with reconstitution of the left ICA terminus. Left middle and anterior cerebral arteries appear patent. Occlusion of the leftpetrous and cavernous ICA may be new since 07/26/2025, or these segments may be patent but poorly opacified due to technical factors/contrast bolus timing. 2.Otherwise, no intracranial large vessel occlusion is identified. 3.Probable moderate to severe stenosis within the right supraclinoid ICA. 4.CT perfusion study demonstrates patchy regions of prolonged Tmax greater than 6 seconds within the left frontoparietal region (27 mL). There is a larger, more confluent region of minimally prolonged Tmax greater than 4 seconds within the left MCA territory (approximately 169 mL). Findings may be related to altered hemodynamics related to known left ICA occlusion. At risk ischemic tissue within the left MCA territory is not excluded. No territorial core infarct is demonstrated. Of note, similar findings were present on the CT perfusion study from 07/26/2025. Please correlate with findings on MRI.The above findings were discussed with Juju Vasques and Michela López, stroke rn urgent care, via telephone on 08/21/2025 5:33 PM EDT. Electronically Signed: Ashvin Stockton MD 08/21/2025 5:41 PM EDT Workstation ID: [id number] CT Angiogram Neck Result Date: 08/21/2025 CT ANGIOGRAM HEAD W AI ANALYSIS OF LVO, CT CEREBRAL PERFUSION W WO CONTRAST, CT ANGIOGRAM NECK Dateof Exam: 08/21/2025 4:29 PM EDT Indication: Neuro Deficit, acute, Stroke suspected Neuro deficit, acute stroke suspected. Comparison: Head CT from today, CTA of the head and neck dated 07/26/2025 Technique: CTA of the head was performed after the uneventful intravenous administration of iodinated contrast. Reconstructed coronal and sagittal images were also obtained. In addition, a 3-D volume rendered image was created for interpretation. Automated exposure control and iterative reconstruction methods were used. FINDINGS: Vascular Findings: Atherosclerotic plaque is seen within the right carotid bifurcation and right carotid siphon. Probable moderate to severe stenosis within the right supraclinoid ICA again noted. The right common carotid, remainder of the right ICA, middle cerebral, anterior cerebral, vertebral, and posterior cerebral arteries are patent without abrupt cut off or aneurysmal dilation. Apparent occlusion of the left petrous, cavernous, and supraclinoid ICA with reconstitution of the left ICA terminus. Occlusion of the left cavernous and supraclinoid ICA may be new since 07/26/2025, or these segments may be patent but poorly opacified due to technical factors/contrastbolus timing. Left distal cervical ICA is somewhat diminutive . Left common carotid artery appears unremarkable. Left middle cerebral, anterior cerebral, vertebral, and posterior cerebral arteries are patent without abrupt cut off or aneurysmal dilation. Basilar artery appears patent and appears unremarkable. Non-vascular Findings: For description of nonvascular intracranial findings, please refer to the noncontrast head CT performed the same date. No acute abnormality is identified within the visualized soft tissue or bony structures of the neck. The visualized lung apices are clear. CT Perfusion: CBF (<30%) volume: 0 mL Tmax (>6.0s) volume: 27 mL Mismatch volume: 27 mL Mismatch ratio: Infinite 1.Apparent occlusion of the left petrous, cavernous, and supraclinoid ICA with reconstitution of the left ICA terminus. Left middle and anterior cerebral arteries appear patent. Occlusion of the leftpetrous and cavernous ICA may be new since 07/26/2025, or these segments may be patent but poorly opacified due to technical factors/contrast bolus timing. 2.Otherwise, no intracranial large vessel occlusion is identified. 3.Probable moderate to severe stenosis within the right supraclinoid ICA. 4.CT perfusion study demonstrates patchy regions of prolonged Tmax greater than 6 seconds within the left frontoparietal region (27 mL). There is a larger, more confluent region of minimally prolonged Tmax greater than 4 seconds within the left MCA territory (approximately 169 mL). Findings may be related to altered hemodynamics related to known left ICA occlusion. At risk ischemic tissue within the left MCA territory is not excluded. No territorial core infarct is demonstrated. Of note, similar findings were present on the CT perfusion study from 07/26/2025. Please correlate with findings on MRI.The above findings were discussed with Juju Vasques and Michela López, stroke rn urgent care, via telephone on 08/21/2025 5:33 PM EDT. Electronically Signed: Ashvin Stockton MD 08/21/2025 5:41 PM EDT Workstation ID: [id number] CT CEREBRAL PERFUSION WITH & WITHOUT CONTRAST Result Date: 08/21/2025 CT ANGIOGRAM HEAD W AI ANALYSIS OF LVO, CT CEREBRAL PERFUSION W WO CONTRAST, CT ANGIOGRAM NECK Dateof Exam: 08/21/2025 4:29 PM EDT Indication: Neuro Deficit, acute, Stroke suspected Neuro deficit, acute stroke suspected. Comparison: Head CT from today, CTA of the head and neck dated 07/26/2025 Technique: CTA of the head was performed after the uneventful intravenous administration of iodinated contrast. Reconstructed coronal and sagittal images were also obtained. In addition, a 3-D volume rendered image was created for interpretation. Automated exposure control and iterative reconstruction methods were used. FINDINGS: Vascular Findings: Atherosclerotic plaque is seen within the right carotid bifurcation and right carotid siphon. Probable moderate to severe stenosis within the right supraclinoid ICA again noted. The right common carotid, remainder of the right ICA, middle cerebral, anterior cerebral, vertebral, and posterior cerebral arteries are patent without abrupt cut off or aneurysmal dilation. Apparent occlusion of the left petrous, cavernous, and supraclinoid ICA with reconstitution of the left ICA terminus. Occlusion of the left cavernous and supraclinoid ICA may be new since 07/26/2025, or these segments may be patent but poorly opacified due to technical factors/contrastbolus timing. Left distal cervical ICA is somewhat diminutive . Left common carotid artery appears unremarkable. Left middle cerebral, anterior cerebral, vertebral, and posterior cerebral arteries are patent without abrupt cut off or aneurysmal dilation. Basilar artery appears patent and appears unremarkable. Non-vascular Findings: For description of nonvascular intracranial findings, please refer to the noncontrast head CT performed the same date. No acute abnormality is identified within the visualized soft tissue or bony structures of the neck. The visualized lung apices are clear. CT Perfusion: CBF (<30%) volume: 0 mL Tmax (>6.0s) volume: 27 mL Mismatch volume: 27 mL Mismatch ratio: Infinite 1.Apparent occlusion of the left petrous, cavernous, and supraclinoid ICA with reconstitution of the left ICA terminus. Left middle and anterior cerebral arteries appear patent. Occlusion of the leftpetrous and cavernous ICA may be new since 07/26/2025, or these segments may be patent but poorly opacified due to technical factors/contrast bolus timing. 2.Otherwise, no intracranial large vessel occlusion is identified. 3.Probable moderate to severe stenosis within the right supraclinoid ICA. 4.CT perfusion study demonstrates patchy regions of prolonged Tmax greater than 6 seconds within the left frontoparietal region (27 mL). There is a larger, more confluent region of minimally prolonged Tmax greater than 4 seconds within the left MCA territory (approximately 169 mL). Findings may be related to altered hemodynamics related to known left ICA occlusion. At risk ischemic tissue within the left MCA territory is not excluded. No territorial core infarct is demonstrated. Of note, similar findings were present on the CT perfusion study from 07/26/2025. Please correlate with findings on MRI.The above findings were discussed with Juju Vasques and Michela López, stroke rn urgent care, via telephone on 08/21/2025 5:33 PM EDT. Electronically Signed: Ashvin Stockton MD 08/21/2025 5:41 PM EDT Workstation ID: [id number] XR Chest 1 View Result Date: 08/21/2025 XR CHEST 1 VW Date of Exam: 08/21/2025 5:12 PM EDT Indication: Acute Stroke Protocol (onset < 12 hrs). Comparison: None available. Findings: The cardiomediastinal silhouette is within normal limits. Pulmonary vascularity appears normal. There is no focal airspace consolidation, pleural effusion, or pneumothorax. There are degenerative changes of the thoracic spine. Impression: No acute cardiopulmonary abnormality. Electronically Signed: Brock Durham MD 08/21/2025 5:40 PM EDT Workstation ID: [id number] CT Head Without Contrast Stroke Protocol Result Date: 08/21/2025 CT HEAD WO CONTRAST STROKE PROTOCOL Date of Exam: 08/21/2025 4:25 PM EDT Indication: Neuro deficit, acute, stroke suspected Neuro Deficit, acute, Stroke suspected. Comparison: Brain MRI 07/26/2025. Technique: Axial CT images were obtained of the head without contrast administration. Reconstructed coronal images were also obtained. Automated exposure control and iterative construction methods were used. Scan Time: 4:29 p.m. Results discussed with Joana Matute ED at 4:38 p.m. Findings: No evidence of acute intracranial hemorrhage or mass effect. No extra-axial collection. The vasques white matterdifferentiation is preserved. Mild white matter changes in the left hemisphere corresponding to findings on prior brain MRI. Ventricles and sulci are symmetric. The mastoid air cells and paranasal sinuses are well aerated. Globes and extraocular muscles are unremarkable. No acute osseous abnormality. Impression: No acute intracranial findings. Electronically Signed: Harry Bradford MD 08/21/2025 4:44 PM EDT Workstation ID: [id number] Results for orders placed during the hospital [...] I have personally reviewed the therapy plans: [] PT/OT/ ST Therapy Plans Plan for Follow-up of Pending Labs/Results: Discharge Details Discharge Medications Changes to Medications Instructions Start Date carvedilol 12.5 MG tablet Commonly known as: COREG What changed: medication strength how much to take when to take this 12.5 mg, Oral, 2 Times Daily With Meals Continue These Medications Instructions Start Date aspirin 81 MG chewable tablet 81 mg, Oral, Daily atorvastatin 80 MG tablet Commonly known as: LIPITOR 1 tablet, Daily BASAGLAR KWIKPEN 100 UNIT/ML injection pen 48 Units, Subcutaneous, Daily cetirizine 10 MG tablet Commonly known as: zyrTEC 10 mg, Daily clopidogrel 75 MG tablet Commonly known as: PLAVIX 75 mg, Oral, Daily estradiol 10 MCG tablet vaginal tablet Commonly known as: VAGIFEM 1 tablet, 2 Times Weekly ezetimibe 10 MG tablet Commonly known as: Zetia 10 mg, Oral, Daily FreeStyle Jovita 3 Plus Sensor Use as directed every 15 days FreeStyle Jovita 3 Sensor misc 1 each, Subcutaneous, Every 14 Days lisinopril 10 MG tablet Commonly known as: PRINIVIL,ZESTRIL 1 tablet, Daily tamsulosin 0.4 MG capsule 24 hr capsule Commonly known as: FLOMAX 0.4 mg, Oral, Daily venlafaxine XR 75 MG 24 hr capsule Commonly known as: EFFEXOR-XR 75 mg, Daily Stop These Medications Mounjaro 7.5 MG/0.5ML solution auto-injector Generic drug: Tirzepatide Allergies Allergen Reactions Codeine GI Intolerance Vomiting Sulfa Antibiotics GI Intolerance vomiting Discharge Disposition: Home or Self Care Diet: Hospital: Diet Order Procedures Diet: Diabetic; Consistent Carbohydrate; Fluid Consistency: Thin (IDDSI 0) Standing Status: Standing Number of Occurrences: 1 Diets:: Diabetic Diabetic Diet:: Consistent Carbohydrate Fluid Consistency:: Thin (IDDSI 0) Activity: Restrictions or Other Recommendations: CODE STATUS: Code Status and Medical Interventions: CPR (Attempt to Resuscitate); Full Support Ordered at: 08/21/25 6150 Code Status (Patient has no pulse and is not breathing): CPR (Attempt to Resuscitate) Medical Interventions (Patient has pulse or is breathing): Full Support Future Appointments Date Time Provider Department Center 08/28/2025 1:00 PM UR[facility]ICS [facility] [address] [facility] 09/07/2025 10:30 AM Maulik Yun MD [facility] 09/13/2025 1:30 PM Demi Palomares PA-C [facility] 09/27/2025 10:00 AM Charu Hernandez APRN [facility] 11/29/2025 9:30 AM Alaina Hayes APRN [facility] Additional Instructions for the Follow-ups that You Need to Schedule Discharge Follow-up with PCP As directed Currently Documented PCP: Araceli Doyle MD PCP Follow Up Details: 1 week Discharge Follow-up with Specified Provider: JOYCE Yun; 2 Weeks As directed To: JOYCE Yun Follow Up: 2 Weeks Discharge Follow-up with Specified Provider: Stroke clinic; 1 Month As directed To: Stroke clinic Follow Up: 1 Month Amanda Whitlock DO 08/23/25 Time Spent on Discharge: I spent 36 minutes on this discharge activity which included: [id number] encounter with the patient, reviewing the data in the system, coordination of the care with the nursing staff as well as consultants, documentation, and entering orders. * GinoKatrina, MS [facility]-WATER PUMP OPERATOR - 08/22/2025 9:55 AM EDT Images from the original note were not included. Acute Care - Speech Language Pathology Initial Evaluation/Discharge [facility] Cognitive-Communication Evaluation Patient Name: Brynn Cox : 1965 Today's Date: 08/22/2025 Admit Date: 08/21/2025 Visit Dx: ICD-10-CM ICD-9-CM 1. 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 Essential hypertension Hyperlipidemia Hypertension Otitis media 04/20/2024 Type 2 diabetes mellitus Vitamin D deficiency Past Surgical History: Procedure Laterality Date BREAST AUGMENTATION CHOLECYSTECTOMY TUBAL ABDOMINAL LIGATION WATER PUMP OPERATOR Recommendation and Plan Recommended discharge disposition is based on the functional assessment performed by PT/OT/Speech therapy (as applicable) and may not reflect the medical necessity determined by your provider or services covered by an individual patient's insurance plan or patient resource. WATER PUMP OPERATOR Diagnosis: functional speech/language skills, functional cognitive- linguistic skills (08/22/25919) [facility] Criteria for Skilled Therapy Interventions Met: no problems identified which require skilled intervention (08/22/25919) Anticipated Discharge Disposition (WATER PUMP OPERATOR): No further WATER PUMP OPERATOR services warranted, other (see comments) (please consider re-ordering if pt has a change in status) (08/22/25919) Therapy Frequency (WATER PUMP OPERATOR SLC): evaluation only (08/22/25919) Progress: (eval; see note for more information) (08/22/25953) WATER PUMP OPERATOR EVALUATION (Last 72 Hours) WATER PUMP OPERATOR SLC Evaluation Row Name 08/22/25919 Communication Assessment/Intervention Document Type discharge evaluation/summary -MM Subjective Information no complaints -MM Patient Observations alert;cooperative -MM Patient/Family/Caregiver Comments/Observations spouse and son present -MM Patient Effort good -MM Symptoms Noted During/After Treatment none -MM General Information Patient Profile Reviewed yes -MM Precautions/Limitations, Vision WFL with corrective lenses -MM Precautions/Limitations, Hearing WFL -MM Prior Level of Function-Communication WFL -MM Plans/Goals Discussed with patient and family;agreed upon -MM Barriers to Rehab none identified -MM Patient's Goals for Discharge return to home -MM Family Goals for Discharge family did not state -MM Pain Pretreatment Pain Rating 0/10 - no pain -MM Posttreatment Pain Rating 0/10 - no pain -MM Comprehension Assessment/Intervention Comprehension Assessment/Intervention Auditory Comprehension;Reading Comprehension -MM Auditory Comprehension Assessment/Intervention Auditory Comprehension (Communication) WFL -MM Narrative Discourse WFL -MM Reading Comprehension Assessment/Intervention Reading Comprehension (Communication) WFL -MM Paragraph Level WFL -MM Expression Assessment/Intervention Expression Assessment/Intervention verbal expression;graphic expression -MM Verbal Expression Assessment/Intervention Verbal Expression WFL -MM Conversational Discourse/Fluency WFL -MM Graphic Expression Assessment/Intervention Graphic Expression WFL -MM Sentence Formulation WFL -MM Oral Musculature and Cranial Nerve Assessment Oral Motor General Assessment WFL -MM Motor Speech Assessment/Intervention Motor Speech Function WFL -MM Conversational Speech (Communication) WFL -MM Speech intelligibility 100%;in quiet environment;in connected speech;with unfamiliar listener -MM Cursory Voice Assessment/Intervention Quality and Resonance (Voice) WFL -MM Cognitive Assessment Intervention- WATER PUMP OPERATOR Cognitive Function (Cognition) WFL -MM Orientation Status (Cognition) WFL -MM Memory (Cognitive) WFL -MM Attention (Cognitive) WFL -MM Thought Organization (Cognitive) WFL -MM Reasoning (Cognitive) WFL -MM Problem Solving (Cognitive) WFL -MM Executive Function (Cognition) WFL -MM Pragmatics (Communication) WFL -MM WATER PUMP OPERATOR Evaluation Clinical Impressions WATER PUMP OPERATOR Diagnosis functional speech/language skills;functional cognitive-linguistic skills -[facility] Criteria for Skilled Therapy Interventions Met no problems identified which require skilled intervention -MM Recommendations Therapy Frequency (WATER PUMP OPERATOR SLC) evaluation only -MM Anticipated Discharge Disposition (WATER PUMP OPERATOR) No further WATER PUMP OPERATOR services warranted;other (see comments) please consider re-ordering if pt has a change in status -MM User Diane (r) = Recorded By, (t) = Taken By, (c) = Cosigned By Initials Name Effective Dates Katrina Jacobs MS CCC-WATER PUMP OPERATOR 07/15/24 - EDUCATION The patient has been educated in the following areas: Evaluation results and recommendations. Time Calculation: Time Calculation- WATER PUMP OPERATOR Row Name 08/22/25 0955 Time Calculation- WATER PUMP OPERATOR WATER PUMP OPERATOR Start Time 0920 -MM WATER PUMP OPERATOR Received On 08/22/25 -MM Untimed Charges 92206-LV Eval Speech and Production w/ Language Minutes 54 -MM Total Minutes Untimed Charges Total Minutes 54 -MM Total Minutes 54 -MM User Diane (r) = Recorded By, (t) = Taken By, (c) = Cosigned By Initials Name Provider Type Katrina Jacobs MS CCC-WATER PUMP OPERATOR Speech and Language Pathologist Therapy Charges for Today Code Description Service Date Service Provider Modifiers Qty [id number] HC ST EVAL SPEECH AND PROD W LANG 4 08/22/2025 Katrina Christian MS CCC- WATER PUMP OPERATOR GN 1 WATER PUMP OPERATOR Discharge Summary Anticipated Discharge Disposition (WATER PUMP OPERATOR): No further WATER PUMP OPERATOR services warranted, other (see comments) (please consider re-ordering if pt has a change in status) Katrina Christian MS CCC-WATER PUMP OPERATOR 08/22/2025 * Jyoti Akers, OT - 08/22/2025 8:50 AM EDT Acute Care - Occupational Therapy Discharge [facility] Patient Name: Brynn Cox : 1965 Today's Date: 08/22/2025 Admit Date: 08/21/2025 Visit Dx: ICD-10-CM ICD-9-CM 1. 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 Essential hypertension Hyperlipidemia Hypertension Otitis media 04/20/2024 Type 2 diabetes mellitus Vitamin D deficiency Past Surgical History: Procedure Laterality Date BREAST AUGMENTATION CHOLECYSTECTOMY TUBAL ABDOMINAL LIGATION General Information Row Name 08/22/25908 OT Time and Intention Document Type discharge evaluation/summary - Mode of Treatment occupational therapy - Row Name 08/22/25908 General Information Patient Profile Reviewed yes - Prior Level of Function independent:;all household mobility;transfer;ADL's - Barriers to Rehab none identified - Row Name 08/22/25908 Living Environment Current Living Arrangements home - People in Home spouse - Row Name 08/22/25908 Home Main Entrance Number of Stairs, Main Entrance three - Stair Railings, Main Entrance railing on right side (ascending) - Row Name 08/22/25908 Stairs Within Home, Primary Number of Stairs, Within Home, Primary none - Row Name 08/22/25908 Cognition Orientation Status (Cognition) oriented x 4 - Row Name 08/22/25908 Safety Issues/Impairments Affecting Functional Mobility Comment, Safety Issues/Impairments (Mobility) Demonstrates good safety awareness and sequencing. Reports being at baseline and symptoms have resolved. - User Diane (r) = Recorded By, (t) = Taken By, (c) = Cosigned By Initials Name Provider Type Jyoti Akers OT Occupational Therapist Mobility/ADL's Row Name 08/22/25913 Bed Mobility Bed Mobility scooting/bridging;supine-sit;sit-supine - Scooting/Bridging [place] (Bed Mobility) independent - Supine-Sit [place] (Bed Mobility) independent - Sit-Supine [place] (Bed Mobility) independent - Row Name 08/22/25913 Transfers Transfers sit-stand transfer;toilet transfer - Row Name 08/22/25913 Sit-Stand Transfer Sit-Stand [place] (Transfers) independent - Row Name 08/22/25913 Toilet Transfer Type (Toilet Transfer) sit-stand;stand-sit - [place] Level (Toilet Transfer) independent - Row Name 08/22/25913 Functional Mobility Functional Mobility- Ind. Level independent - Functional Mobility-Distance (Feet) 30 - Functional Mobility- Comment No LOB - Row Name 08/22/25913 Activities of Daily Living BADL Assessment/Intervention toileting;lower body dressing - Row Name 08/22/25913 Toileting Assessment/Training [place] Level (Toileting) toileting skills;adjust/manage clothing;perform perineal hygiene;independent - Assistive Devices (Toileting) commode - Position (Toileting) unsupported sitting;unsupported standing - Row Name 08/22/25913 Lower Body Dressing Assessment/Training [place] Level (Lower Body Dressing) don;socks;independent - Position (Lower Body Dressing) edge of bed sitting - User Diane (r) = Recorded By, (t) = Taken By, (c) = Cosigned By Initials Name Provider Type Jyoti Oneill OT Occupational Therapist Obj/Interventions Row Name 08/22/25914 Sensory Assessment (Somatosensory) Sensory Assessment (Somatosensory) UE sensation intact - Row Name 08/22/25914 Vision Assessment/Intervention Visual Impairment/Limitations corrective lenses full-time - Row Name 08/22/25914 Range of Motion Comprehensive General Range of Motion bilateral upper extremity ROM WNL - Row Name 08/22/25914 Strength Comprehensive (MMT) General Manual Muscle Testing (MMT) Assessment no strength deficits identified - Row Name 08/22/25914 Balance Balance Assessment sitting static balance;sitting dynamic balance;standing static balance;standing dynamic balance - Static Sitting Balance independent - Dynamic Sitting Balance independent -LC Position, Sitting Balance unsupported;sitting edge of bed - Static Standing Balance independent - Dynamic Standing Balance independent - Position/Device Used, Standing Balance unsupported - Balance Interventions sitting;standing;sit to stand;occupation based/functional task;weight shifting activity - Comment, Balance No LOB - User Diane (r) = Recorded By, (t) = Taken By, (c) = Cosigned By Initials Name Provider Type Jyoti Oneill OT Occupational Therapist Goals/Plan No documentation. Clinical Impression Row Name 08/22/25914 Pain Assessment Pretreatment Pain Rating 0/10 - no pain - Posttreatment Pain Rating 0/10 - no pain - Row Name 08/22/25914 Plan of Care Review Plan of Care Reviewed With patient;spouse - Progress improving - Outcome Evaluation Pt. presents at baseline with ADLs and functional mobility. No further skilled OT services warranted at this time. Recommend home with family at discharge. - Row Name 08/22/25914 Therapy Assessment/Plan (OT) Therapy Frequency (OT) evaluation only - Row Name 08/22/25914 Therapy Plan Review/Discharge Plan (OT) Anticipated Discharge Disposition (OT) home - Row Name 08/22/25914 Vital Signs Pre Systolic BP Rehab 148 -LC Pre Treatment Diastolic BP 93 -LC Post Systolic BP Rehab 166 -LC Post Treatment Diastolic BP 85 -LC Pre Patient Position Supine -LC Post Patient Position Sitting - Row Name 08/22/25914 Positioning and Restraints Pre-Treatment Position in bed -LC Post Treatment Position bed -LC In Bed notified nsg;sitting;call light within reach;encouraged to call for assist;exit alarm on;with family/caregiver - User Diane (r) = Recorded By, (t) = Taken By, (c) = Cosigned By Initials Name Provider Type Jyoti Oneill OT Occupational Therapist Outcome Measures Row Name 08/22/25915 How much help from another is currently needed... Putting on and taking off regular lower body clothing? 4 -LC Bathing (including washing, rinsing, and drying) 4 -LC Toileting (which includes using toilet bed ames or urinal) 4 -LC Putting on and taking off regular upper body clothing 4 -LC Taking care of personal grooming (such as brushing teeth) 4 -LC Eating meals 4 - AM-PAC 6 Clicks Score (OT) 24 - Row Name 08/22/25915 Functional Assessment Outcome Measure Options AM-PAC 6 Clicks Daily Activity (OT) - User Diane (r) = Recorded By, (t) = Taken By, (c) = Cosigned By Initials Name Provider Type Jyoti Oneill OT Occupational Therapist Occupational Therapy Education Title: PT OT WATER PUMP OPERATOR Therapies (In Progress) Topic: Occupational Therapy (In Progress) Point: ADL training (In Progress) Learning Progress Summary Patient Acceptance, E, NR by KRISTEN at 08/22/2025 0850 Point: Precautions (In Progress) Learning Progress Summary Patient Acceptance, E, NR by KRISTEN at 08/22/2025 0850 Point: Body mechanics (In Progress) Learning Progress Summary Patient Acceptance, E, NR by at 08/22/2025 0850 User Diane Initials Effective Dates Name Provider Type [facility] 05/01/21 - Jyoti Akers OT Occupational Therapist OT OT Recommendation and Plan Recommended discharge disposition is based on the functional assessment performed by PT/OT/Speech therapy (as applicable) and may not reflect the medical necessity determined by your provider or services covered by an individual patient's insurance plan or patient resource. Therapy Frequency (OT): evaluation only Plan of Care Review Plan of Care Reviewed With: patient, spouse Progress: improving Outcome Evaluation: Pt. presents at baseline with ADLs and functional mobility. No further skilled OT services warranted at this time. Recommend home with family at discharge. Plan of Care Reviewed With: patient, spouse Outcome Evaluation: Pt. presents at baseline with ADLs and functional mobility. No further skilled OT services warranted at this time. Recommend home with family at discharge. Time Calculation: Evaluation Complexity (OT) Review Occupational Profile/Medical/Therapy History Complexity: brief/low complexity Assessment, Occupational Performance/Identification of Deficit Complexity: 1-3 performance deficits Clinical Decision Making Complexity (OT): problem focused assessment/low complexity Overall Complexity of Evaluation (OT): low complexity Time Calculation- OT Row Name 08/22/25 0917 Time Calculation- OT OT Start Time 0850 -LC OT Received On 08/22/25 - Untimed Charges OT Eval/Re-eval Minutes 46 - Total Minutes Untimed Charges Total Minutes 46 - Total Minutes 46 -LC User Diane (r) = Recorded By, (t) = Taken By, (c) = Cosigned By Initials Name Provider Type Jyoti Akers OT Occupational Therapist Therapy Charges for Today Code Description Service Date Service Provider Modifiers Qty [id number] OT EVAL LOW COMPLEXITY 4 08/22/2025 Jyoti Akers OT GO 1 OT Discharge Summary Anticipated Discharge Disposition (OT): home Reason for Discharge: At baseline function Discharge Destination: Home Jyoti Akers OT 08/22/2025 documented in this encounter Discharge Instructions * Attachments The following attachments cannot be sent through Care Everywhere. * Carotid Artery Disease (Maori) documented in this encounter Medications at Time of Discharge aspirin 81 MG chewable tablet Chew 1 tablet Daily. 90 tablet 2 07/28/2025 atorvastatin (LIPITOR) 80 MG tablet Take 1 tablet by mouth Daily. 04/27/2023 carvedilol (COREG) 12.5 MG tablet Take 1 tablet by mouth 2 (Two) Times a Day With Meals for 30 days. 60 tablet 1 08/23/2025 09/22/20 25 cetirizine (zyrTEC) 10 MG tablet Take 1 tablet by mouth Daily. clopidogrel (PLAVIX) 75 MG tablet Take 1 [...] vagina 2 (Two) Times a Week. 04/03/2025 ezetimibe (Zetia) 10 MG tabletIndications:M ixed hyperlipidemia Take 1 tablet by mouth Daily. 30 tablet 11 08/09/2025 08/09/20 26 Insulin Glargine (BASAGLAR KWIKPEN) 100 UNIT/ML injection pen Inject 48 Units under the skin into the appropriate area as directed Daily. 45 mL 1 04/19/2025 lisinopril (PRINIVIL,ZESTRIL) 10 MG tablet Take 1 tablet by mouth Daily. 04/27/2023 venlafaxine XR (EFFEXOR-XR) 75 MG 24 hr capsule Take 1 capsule by mouth Daily. 03/05/2022 tamsulosin (FLOMAX) 0.4 MG capsule 24 hr capsuleIndications: Incomplete bladder emptying Take 1 capsule by mouth Daily. 30 capsule 1 08/17/2025 09/13/20 25 documented as of this encounter Progress Notes * Maulik Yun MD - 08/23/2025 10:32 AM EDT HOD# : 1 No events last night Neurologically stable GCS appeared 15 ICAO (internal carotid artery occlusion) Type 2 diabetes mellitus with hyperlipidemia Essential hypertension Mixed hyperlipidemia Type 2 diabetes mellitus with hyperglycemia Facial droop Transient ischemic attack (TIA) Carotid stenosis, bilateral Temp: [98 ??F (36.7 ??C)-98.5 ??F (36.9 ??C)] 98.2 ??F (36.8 ??C) Heart Rate: [85-100] 87 Resp: [16] 16 BP: (145-175)/(78-92) 145/81 I/O last 3 completed shifts: In: 500 [P.O.:400; I.V.:100] Out: - No intake/output data recorded. Vital signs were reviewed and documented in the chart EXAM Patient appeared in good neurologic function with normal comprehension CN grossly intact left eye as before Moves all extremities to command very subtle right motor drift MRI was personally reviewed and interpreted I looked at the films she is going to have likely an 80% right supraclinoid stenosis just proximal to the bifurcation cross-filling is excellent Assessment and plan 1. Medication noncompliance 2. Severe intracranial atherosclerosis right supraclinoid ICA calcific in nature 3. Excellent collaterals blood pressures 140 today with no evidence of neurologic deficits 4. Diabetes I was in the room with and joined his conversations. We had a lot of shared decision making with the patient's family particularly her who expressed understanding after extensive discussing risk benefits of intraprocedural diagnostic angiogram with subsequent for example stenting I explained that I suspect that if we are going to do a diagnostic angiogram and incur the risk of that procedures we should go ahead and plan to treat this if possible as I suspect is katie show high-grade stenosis I worry about choroidal artery infarcts in the proximity of the distal ICA, but Idid offer treatment given their reasonable degree of sophistication, I just did not recommend it bas ed on her cessation of dual antiplatelet therapy and lack of exhaustive conservative-isms, given her left hemispheric ischemic symptoms I think it is reasonable to let her recover from her stroke andrevisit this We will maintain dual antiplatelet therapy and see her back soon within a couple of weeks to continue discussions I explained the signs and symptoms look for necessitate a referral back we talked about access to care and the risk of strokes that could be devastating both with and without procedural-based intervention Plan will be close monitoring She is going to have a cardiology follow-up as well and may be reasonable to entertain the possibility of in addition to high-dose statin therapy PSK 9 inhibitor given the degree of her intracranial atherosclerosis * Kip Osullivan MD - 08/23/2025 9:17 AM EDT Stroke Progress Note Chief Complaint: Speech difficulty Subjective Subjective Subjective: The patient is lying down in the bed in NAD. No new acute complains at this time Objective Temp: [98 ??F (36.7 ??C)-98.5 ??F (36.9 ??C)] 98.4 ??F (36.9 ??C) Heart Rate: [85-100] 87 Resp: [16] 16 BP: (138-175)/(78-92) 147/78 Objective GEN: lying in bed; in NAD HENT: normocephalic, conjunctival injection of the left eye NEURO: Awake and alert. Oriented to self, time, place, and situation. Language is fluent with good comprehension. No evidence of aphasia Pupils are equal, round, and reactive to light. Visual kline are full to confrontational testing. Extraocular movements intact. Face is symmetric at rest and with activation. Facial sensation is intact. Hearing grossly intact. No dysarthria. Tongue protrudes midline. No abnormal movements. Able to maintain bilateral upper and lower extremities against gravity without drift, though mild pronator drift present in RUE. Sensation intact to light touch throughout. Coordination intact on [id number]. Reflexes and gait deferred. Results Review: I reviewed the patient's new clinical results. WBC Date Value Ref Range Status 08/22/2025 5.57 3.40 - 10.80 10*3/mm3 Final RBC Date Value Ref Range Status 08/22/2025 3.02 (L) 3.77 - 5.28 10*6/mm3 Final Hemoglobin Date Value Ref Range Status 08/22/2025 9.4 (L) 12.0 - 15.9 g/dL Final Hematocrit Date Value Ref Range Status 08/22/2025 27.6 (L) 34.0 - 46.6 % Final MCV Date Value Ref Range Status 08/22/2025 91.4 79.0 - 97.0 fL Final MCH Date Value Ref Range Status 08/22/2025 31.1 26.6 - 33.0 pg Final MCHC Date Value Ref Range Status 08/22/2025 34.1 31.5 - 35.7 g/dL Final RDW Date Value Ref Range Status 08/22/2025 12.7 12.3 - 15.4 % Final RDW-SD Date Value Ref Range Status 08/22/2025 42.1 37.0 - 54.0 fl Final MPV Date Value Ref Range Status 08/22/2025 10.0 6.0 - 12.0 fL Final Platelets Date Value Ref Range Status 08/22/2025 236 140 - 450 10*3/mm3 Final Neutrophil % Date Value Ref Range Status 08/21/2025 76.4 (H) 42.7 - 76.0 % Final Lymphocyte % Date Value Ref Range Status 08/21/2025 16.6 (L) 19.6 - 45.3 % Final Monocyte % Date Value Ref Range Status 08/21/2025 6.7 5.0 - 12.0 % Final Eosinophil % Date Value Ref Range Status 08/21/2025 0.0 (L) 0.3 - 6.2 % Final Basophil % Date Value Ref Range Status 08/21/2025 0.1 0.0 - 1.5 % Final Immature Grans % Date Value Ref Range Status 08/21/2025 0.2 0.0 - 0.5 % Final Neutrophils, Absolute Date Value Ref Range Status 08/21/2025 7.35 (H) 1.70 - 7.00 10*3/mm3 Final Lymphocytes, Absolute Date Value Ref Range Status 08/21/2025 1.60 0.70 - 3.10 10*3/mm3 Final Monocytes, Absolute Date Value Ref Range Status 08/21/2025 0.65 0.10 - 0.90 10*3/mm3 Final Eosinophils, Absolute Date Value Ref Range Status 08/21/2025 0.00 0.00 - 0.40 10*3/mm3 Final Basophils, Absolute Date Value Ref Range Status 08/21/2025 0.01 0.00 - 0.20 10*3/mm3 Final Immature Grans, Absolute Date Value Ref Range Status 08/21/2025 0.02 0.00 - 0.05 10*3/mm3 Final Lab Results Component Value Date GLUCOSE 125 (H) 08/22/2025 BUN 17.5 08/22/2025 CREATININE 0.89 08/22/2025 NA 139 08/22/2025 K 4.6 08/22/2025 CL 106 08/22/2025 CALCIUM 8.9 08/22/2025 PROTEINTOT 6.1 07/27/2025 ALBUMIN 3.5 07/27/2025 ALT 136 (H) 08/21/2025 AST 47 (H) 08/21/2025 ALKPHOS 123 (H) 07/27/2025 BILITOT 0.8 07/27/2025 GLOB 2.6 07/27/2025 AGRATIO 1.3 07/27/2025 BCR 19.7 08/22/2025 ANIONGAP 7.7 08/22/2025 EGFR 73.4 08/22/2025 MRI Brain Without Contrast Result Date: 08/22/2025 Impression: There are multiple small patchy areas of pathologic restricted diffusion in the left frontal and parietal lobes. There are 2 new areas of restricted diffusion seen adjacent to the anterior horn of the left lateral ventricle. There is no evidence of acute hemorrhage. Electronically Signed: Ck Arredondo MD 08/22/2025 4:24 AM EDT Workstation ID: [id number] CT Angiogram Head w AI Analysis of LVO Result Date: 08/21/2025 1.Apparent occlusion of the left petrous, cavernous, and supraclinoid ICA with reconstitution of the left ICA terminus. Left middle and anterior cerebral arteries appear patent. Occlusion of the leftpetrous and cavernous ICA may be new since 07/26/2025, or these segments may be patent but poorly opacified due to technical factors/contrast bolus timing. 2.Otherwise, no intracranial large vessel occlusion is identified. 3.Probable moderate to severe stenosis within the right supraclinoid ICA. 4.CT perfusion study demonstrates patchy regions of prolonged Tmax greater than 6 seconds within the left frontoparietal region (27 mL). There is a larger, more confluent region of minimally prolonged Tmax greater than 4 seconds within the left MCA territory (approximately 169 mL). Findings may be related to altered hemodynamics related to known left ICA occlusion. At risk ischemic tissue within the left MCA territory is not excluded. No territorial core infarct is demonstrated. Of note, similar findings were present on the CT perfusion study from 07/26/2025. Please correlate with findings on MRI.The above findings were discussed with Juju López, stroke rn urgent care, via telephone on 08/21/2025 5:33 PM EDT. Electronically Signed: Ashvin Stockton MD 08/21/2025 5:41 PM EDT Workstation ID: [id number] CT Angiogram Neck Result Date: 08/21/2025 1.Apparent occlusion of the left petrous, cavernous, and supraclinoid ICA with reconstitution of the left ICA terminus. Left middle and anterior cerebral arteries appear patent. Occlusion of the leftpetrous and cavernous ICA may be new since 07/26/2025, or these segments may be patent but poorly opacified due to technical factors/contrast bolus timing. 2.Otherwise, no intracranial large vessel occlusion is identified. 3.Probable moderate to severe stenosis within the right supraclinoid ICA. 4.CT perfusion study demonstrates patchy regions of prolonged Tmax greater than 6 seconds within the left frontoparietal region (27 mL). There is a larger, more confluent region of minimally prolonged Tmax greater than 4 seconds within the left MCA territory (approximately 169 mL). Findings may be related to altered hemodynamics related to known left ICA occlusion. At risk ischemic tissue within the left MCA territory is not excluded. No territorial core infarct is demonstrated. Of note, similar findings were present on the CT perfusion study from 07/26/2025. Please correlate with findings on MRI.The above findings were discussed with Juju López, stroke rn urgent care, via telephone on 08/21/2025 5:33 PM EDT. Electronically Signed: Ashvin Stockton MD 08/21/2025 5:41 PM EDT Workstation ID: [id number] CT CEREBRAL PERFUSION WITH & WITHOUT CONTRAST Result Date: 08/21/2025 1.Apparent occlusion of the left petrous, cavernous, and supraclinoid ICA with reconstitution of the left ICA terminus. Left middle and anterior cerebral arteries appear patent. Occlusion of the leftpetrous and cavernous ICA may be new since 07/26/2025, or these segments may be patent but poorly opacified due to technical factors/contrast bolus timing. 2.Otherwise, no intracranial large vessel occlusion is identified. 3.Probable moderate to severe stenosis within the right supraclinoid ICA. 4.CT perfusion study demonstrates patchy regions of prolonged Tmax greater than 6 seconds within the left frontoparietal region (27 mL). There is a larger, more confluent region of minimally prolonged Tmax greater than 4 seconds within the left MCA territory (approximately 169 mL). Findings may be related to altered hemodynamics related to known left ICA occlusion. At risk ischemic tissue within the left MCA territory is not excluded. No territorial core infarct is demonstrated. Of note, similar findings were present on the CT perfusion study from 07/26/2025. Please correlate with findings on MRI.The above findings were discussed with Juju Vasques and Michela López, stroke rn urgent care, via telephone on 08/21/2025 5:33 PM EDT. Electronically Signed: Ashvin Stockton MD 08/21/2025 5:41 PM EDT Workstation ID: [id number] XR Chest 1 View Result Date: 08/21/2025 Impression: No acute cardiopulmonary abnormality. Electronically Signed: Brock Durham MD 08/21/2025 5:40 PM EDT Workstation ID: [id number] CT Head Without Contrast Stroke Protocol Result Date: 08/21/2025 Impression: No acute intracranial findings. Electronically Signed: Harry Bradford MD 08/21/2025 4:44 PM EDT Workstation ID: [id number] Results for orders placed during the hospital encounter of 07/26/25 Adult Transthoracic Echo Complete W/ Cont if Necessary Per Protocol (With Agitated Saline) 07/27/2025 12:17 PM Interpretation Summary Left ventricular ejection fraction appears to be 56 - 60%. Left ventricular wall thickness is consistent with hypertrophy. Saline test results are negative. Assessment/Plan Assessment: # Small acute infarcts, left MCA distribution #Subacute infarcts, left MCA distribution #Chronic occlusion of the left ICA #Severe stenosis of the right ICA #Hypertension, #Hyperlipidemia #Type 2 diabetes 60-year-old female with history that includes recent left MCA watershed subacute stroke (07/2025) with no residual deficit. Patient presented to [facility] ED on 08/21 for transient episode of dysarthria withmild left facial droop. Patient was evaluated by Dr. Omer via teleneurology. Initial NIH scorewas 0. Code stroke CT imaging was remarkable for left MCA penumbra with no core infarct, no LVO on CTA. Patient was not a candidate for IV thrombolytic therapy due to recent stroke. Patient was loaded with DAPT and transferred to [facility] for higher level of care. On arrival to [facility], NIH score remained 0with no focal neurologic deficits appreciated on exam. Imaging: CT head with no evidence of acute/subacute infarct or hemorrhage. CTA with occlusion of the distal left ICA and stenosis of distal right ICA. CTP with delayed Tmax (> 6.0s) in the left MCA territory. Echocardiogram: Previously performed on 07/27/2025, no left atrial dilation negative bubble study [employer] antiplatelet/anticoagulation/statin: Aspirin 81 mg, clopidogrel 75 mg (discontinued clopidogrel several days prior to presentation) Pertinent labs: P2Y12 33, LDL 81 (prior to initiation of statin) Due to nonadherence with Plavix prior to presentation, will continue with aggressive medical management at this time. Patient will follow-up in outpatient clinic with neurosurgery/Dr. Yun for consideration of future surgical intervention. Plan: Outpatient follow up regarding need or surgical intervention per NSGY Aspirin 81 mg daily Clopidogrel 75 mg daily P2Y12 33 - responsive to clopidogrel Continue [employer] atorvastatin LDL goal less than 70 Will continue to monitor as patient has been on this medication for short time and is tolerating without side effects NSGY suggests discussing Repatha at scheduled follow up with cardiology A1c goal less than 7.0 Resume carvedilol at reduced dose of 12.5 mg BID SBP goal 120-140 Pt is to contact vascular neurology clinic if systolic blood pressure trends under 120 Avoid hypotension, maintain adequate hydration Antidepressant for poststroke depression 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 Patient education for discharge: call 911 or present to emergency department with any stroke symptom, including unilateral face, arm, or leg weakness, numbness, or paresthesias, unilateral facial droop, speech deficits, dizziness with nausea, vomiting, nystagmus, and incoordination, visual deficits, or severe onset headache. Stroke will now sign off. Please call for any further questions or concerns Kip Osullivan MD Vascular Neurologist [facility] * Kip Osullivan MD - 08/22/2025 9:59 AM EDT Stroke Progress Note Chief Complaint: Speech difficulty Subjective Subjective Subjective: The patient is lying down in the bed in NAD. noticed onset of speech difficulty and confusion. Per patient and , she has now returned to baseline. Patient stopped clopidogrel several days ago due to headache, though it was felt by that this may be due to dehydration. She has not been adequately hydrating since discharge. No other acute complains at this time Objective Temp: [97.8 ??F (36.6 ??C)-98.2 ??F (36.8 ??C)] 98 ??F (36.7 ??C) Heart Rate: [95-100] 96 Resp: [16] 16 BP: (129-154)/(73-93) 148/93 Objective GEN: lying in bed; in NAD HENT: normocephalic, conjunctival injection of the left eye NEURO: Awake and alert. Oriented to self, time, place, and situation. Language is fluent with good comprehension. No evidence of aphasia Pupils are equal, round, and reactive to light. Visual kline are full to confrontational testing. Extraocular movements intact. Face is symmetric at rest and with activation. Facial sensation is intact. Hearing grossly intact. No dysarthria. Tongue protrudes midline. No abnormal movements. Able to maintain bilateral upper and lower extremities against gravity without drift. Sensation intact to light touch throughout. Coordination intact on [id number]. Reflexes and gait deferred. Results Review: I reviewed the patient's new clinical results. WBC Date Value Ref Range Status 08/21/2025 9.63 3.40 - 10.80 10*3/mm3 Final RBC Date Value Ref Range Status 08/21/2025 3.38 (L) 3.77 - 5.28 10*6/mm3 Final Hemoglobin Date Value Ref Range Status 08/21/2025 10.6 (L) 12.0 - 15.9 g/dL Final 08/21/2025 9.9 (L) 12.0 - 17.0 g/dL Final Comment: Serial Number: [id number] Hematocrit Date Value Ref Range Status 08/21/2025 31.1 (L) 34.0 - 46.6 % Final 08/21/2025 29 (L) 38 - 51 % Final MCV Date Value Ref Range Status 08/21/2025 92.0 79.0 - 97.0 fL Final MCH Date Value Ref Range Status 08/21/2025 31.4 26.6 - 33.0 pg Final MCHC Date Value Ref Range Status 08/21/2025 34.1 31.5 - 35.7 g/dL Final RDW Date Value Ref Range Status 08/21/2025 12.6 12.3 - 15.4 % Final RDW-SD Date Value Ref Range Status 08/21/2025 43.0 37.0 - 54.0 fl Final MPV Date Value Ref Range Status 08/21/2025 10.3 6.0 - 12.0 fL Final Platelets Date Value Ref Range Status 08/21/2025 248 140 - 450 10*3/mm3 Final Neutrophil % Date Value Ref Range Status 08/21/2025 76.4 (H) 42.7 - 76.0 % Final Lymphocyte % Date Value Ref Range Status 08/21/2025 16.6 (L) 19.6 - 45.3 % Final Monocyte % Date Value Ref Range Status 08/21/2025 6.7 5.0 - 12.0 % Final Eosinophil % Date Value Ref Range Status 08/21/2025 0.0 (L) 0.3 - 6.2 % Final Basophil % Date Value Ref Range Status 08/21/2025 0.1 0.0 - 1.5 % Final Immature Grans % Date Value Ref Range Status 08/21/2025 0.2 0.0 - 0.5 % Final Neutrophils, Absolute Date Value Ref Range Status 08/21/2025 7.35 (H) 1.70 - 7.00 10*3/mm3 Final Lymphocytes, Absolute Date Value Ref Range Status 08/21/2025 1.60 0.70 - 3.10 10*3/mm3 Final Monocytes, Absolute Date Value Ref Range Status 08/21/2025 0.65 0.10 - 0.90 10*3/mm3 Final Eosinophils, Absolute Date Value Ref Range Status 08/21/2025 0.00 0.00 - 0.40 10*3/mm3 Final Basophils, Absolute Date Value Ref Range Status 08/21/2025 0.01 0.00 - 0.20 10*3/mm3 Final Immature Grans, Absolute Date Value Ref Range Status 08/21/2025 0.02 0.00 - 0.05 10*3/mm3 Final Lab Results Component Value Date GLUCOSE 78 07/27/2025 BUN 17.2 07/27/2025 CREATININE 1.50 (H) 08/21/2025 NA 138 07/27/2025 K 3.8 07/27/2025 CL 104 07/27/2025 CALCIUM 8.7 07/27/2025 PROTEINTOT 6.1 07/27/2025 ALBUMIN 3.5 07/27/2025 ALT 136 (H) 08/21/2025 AST 47 (H) 08/21/2025 ALKPHOS 123 (H) 07/27/2025 BILITOT 0.8 07/27/2025 GLOB 2.6 07/27/2025 AGRATIO 1.3 07/27/2025 BCR 19.5 07/27/2025 ANIONGAP 13.9 07/27/2025 EGFR 39.2 (L) 08/21/2025 MRI Brain Without Contrast Result Date: 08/22/2025 Impression: There are multiple small patchy areas of pathologic restricted diffusion in the left frontal and parietal lobes. There are 2 new areas of restricted diffusion seen adjacent to the anterior horn of the left lateral ventricle. There is no evidence of acute hemorrhage. Electronically Signed: Ck Arredondo MD 08/22/2025 4:24 AM EDT Workstation ID: [id number] CT Angiogram Head w AI Analysis of LVO Result Date: 08/21/2025 1.Apparent occlusion of the left petrous, cavernous, and supraclinoid ICA with reconstitution of the left ICA terminus. Left middle and anterior cerebral arteries appear patent. Occlusion of the leftpetrous and cavernous ICA may be new since 07/26/2025, or these segments may be patent but poorly opacified due to technical factors/contrast bolus timing. 2.Otherwise, no intracranial large vessel occlusion is identified. 3.Probable moderate to severe stenosis within the right supraclinoid ICA. 4.CT perfusion study demonstrates patchy regions of prolonged Tmax greater than 6 seconds within the left frontoparietal region (27 mL). There is a larger, more confluent region of minimally prolonged Tmax greater than 4 seconds within the left MCA territory (approximately 169 mL). Findings may be related to altered hemodynamics related to known left ICA occlusion. At risk ischemic tissue within the left MCA territory is not excluded. No territorial core infarct is demonstrated. Of note, similar findings were present on the CT perfusion study from 07/26/2025. Please correlate with findings on MRI.The above findings were discussed with Juju López, stroke rn urgent care, via telephone on 08/21/2025 5:33 PM EDT. Electronically Signed: Ashvin Stockton MD 08/21/2025 5:41 PM EDT Workstation ID: [id number] CT Angiogram Neck Result Date: 08/21/2025 1.Apparent occlusion of the left petrous, cavernous, and supraclinoid ICA with reconstitution of the left ICA terminus. Left middle and anterior cerebral arteries appear patent. Occlusion of the leftpetrous and cavernous ICA may be new since 07/26/2025, or these segments may be patent but poorly opacified due to technical factors/contrast bolus timing. 2.Otherwise, no intracranial large vessel occlusion is identified. 3.Probable moderate to severe stenosis within the right supraclinoid ICA. 4.CT perfusion study demonstrates patchy regions of prolonged Tmax greater than 6 seconds within the left frontoparietal region (27 mL). There is a larger, more confluent region of minimally prolonged Tmax greater than 4 seconds within the left MCA territory (approximately 169 mL). Findings may be related to altered hemodynamics related to known left ICA occlusion. At risk ischemic tissue within the left MCA territory is not excluded. No territorial core infarct is demonstrated. Of note, similar findings were present on the CT perfusion study from 07/26/2025. Please correlate with findings on MRI.The above findings were discussed with Juju López, stroke rn urgent care, via telephone on 08/21/2025 5:33 PM EDT. Electronically Signed: Ashvin Stockton MD 08/21/2025 5:41 PM EDT Workstation ID: [id number] CT CEREBRAL PERFUSION WITH & WITHOUT CONTRAST Result Date: 08/21/2025 1.Apparent occlusion of the left petrous, cavernous, and supraclinoid ICA with reconstitution of the left ICA terminus. Left middle and anterior cerebral arteries appear patent. Occlusion of the leftpetrous and cavernous ICA may be new since 07/26/2025, or these segments may be patent but poorly opacified due to technical factors/contrast bolus timing. 2.Otherwise, no intracranial large vessel occlusion is identified. 3.Probable moderate to severe stenosis within the right supraclinoid ICA. 4.CT perfusion study demonstrates patchy regions of prolonged Tmax greater than 6 seconds within the left frontoparietal region (27 mL). There is a larger, more confluent region of minimally prolonged Tmax greater than 4 seconds within the left MCA territory (approximately 169 mL). Findings may be related to altered hemodynamics related to known left ICA occlusion. At risk ischemic tissue within the left MCA territory is not excluded. No territorial core infarct is demonstrated. Of note, similar findings were present on the CT perfusion study from 07/26/2025. Please correlate with findings on MRI.The above findings were discussed with Juju Vasques and Michela López, stroke rn urgent care, via telephone on 08/21/2025 5:33 PM EDT. Electronically Signed: Ashvin Stockton MD 08/21/2025 5:41 PM EDT Workstation ID: [id number] XR Chest 1 View Result Date: 08/21/2025 Impression: No acute cardiopulmonary abnormality. Electronically Signed: Brock Durham MD 08/21/2025 5:40 PM EDT Workstation ID: [id number] CT Head Without Contrast Stroke Protocol Result Date: 08/21/2025 Impression: No acute intracranial findings. Electronically Signed: Harry Bradford MD 08/21/2025 4:44 PM EDT Workstation ID: [id number] Results for orders placed during the hospital encounter of 07/26/25 Adult Transthoracic Echo Complete W/ Cont if Necessary Per Protocol (With Agitated Saline) 07/27/2025 12:17 PM Interpretation Summary Left ventricular ejection fraction appears to be 56 - 60%. Left ventricular wall thickness is consistent with hypertrophy. Saline test results are negative. Assessment/Plan Assessment: # Small acute infarcts, left MCA distribution #Subacute infarcts, left MCA distribution #Chronic occlusion of the left ICA #Severe stenosis of the right ICA #Hypertension, #Hyperlipidemia #Type 2 diabetes 60-year-old female with history that includes recent left MCA watershed subacute stroke (07/2025) with no residual deficit. Patient presented to [facility] ED on 08/21 for transient episode of dysarthria withmild left facial droop. Patient was evaluated by Dr. Omer via teleneurology. Initial NIH scorewas 0. Code stroke CT imaging was remarkable for left MCA penumbra with no core infarct, no LVO on CTA. Patient was not a candidate for IV thrombolytic therapy due to recent stroke. Patient was loaded with DAPT and transferred to [facility] for higher level of care. On arrival to [facility], NIH score remained 0with no focal neurologic deficits appreciated on exam. Imaging: CT head with no evidence of acute/subacute infarct or hemorrhage. CTA with occlusion of the distal left ICA and stenosis of distal right ICA. CTP with delayed Tmax (> 6.0s) in the left MCA territory. Echocardiogram: Previously performed on 07/27/2025, no left atrial dilation negative bubble study [employer] antiplatelet/anticoagulation/statin: Aspirin 81 mg, clopidogrel 75 mg (discontinued clopidogrel in the last several days) Pertinent labs: P2Y12 is pending Plan: MRA head and neck with and without contrast per neurosurgery Aspirin 81 mg daily Clopidogrel 75 mg daily P2Y12 pending Continue [employer] atorvastatin LDL goal less than 70 Will continue to monitor as patient has been on this medication for short time A1c goal less than 7.0 Continue to hold carvedilol Long-term SBP goal less than 120-140 Avoid hypotension Start sertraline for poststroke depression 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 Patient education for discharge: call 911 or present to emergency department with any stroke symptom, including unilateral face, arm, or leg weakness, numbness, or paresthesias, unilateral facial droop, speech deficits, dizziness with nausea, vomiting, nystagmus, and incoordination, visual deficits, or severe onset headache. Stroke will continue to follow. Please call for any further questions or concerns Kip Osullivan MD Vascular Neurologist [facility] * Amanda Whitlock, DO - 08/22/2025 7:45 AM EDT Images from the original note were not included. [facility] PROGRESS NOTE Patient Name: Brynn Cox : 1965 Date of Admission: 08/21/2025 Primary Care Physician: Araceli Doyle MD Subjective Subjective CC: Facial droop HPI: Patient asymptomatic, resting in bed. Multiple questions from spouse at bedside Objective Objective Vital Signs: Temp: [97.8 ??F (36.6 ??C)-98.2 ??F (36.8 ??C)] 98 ??F (36.7 ??C) Heart Rate: [94-100] 95 Resp: [16] 16 BP: (129-154)/(73-93) 153/84 Physical Exam: Constitutional: No acute distress, awake, alert HENT: NCAT, mucous membranes moist Respiratory: Respiratory effort normal Musculoskeletal: No bilateral ankle edema Psychiatric: Appropriate affect, cooperative Neurologic: Oriented x 3, speech clear Skin: No rashes Results Reviewed: LAB RESULTS: Lab 08/21/25 1637 08/21/25 1635 WBC 9.63 -- HEMOGLOBIN 10.6* -- HEMOGLOBIN, POC -- 9.9* HEMATOCRIT 31.1* -- HEMATOCRIT POC -- 29* PLATELETS 248 -- NEUTROS ABS 7.35* -- IMMATURE GRANS (ABS) 0.02 -- LYMPHS ABS 1.60 -- MONOS ABS 0.65 -- EOS ABS 0.00 -- MCV 92.0 -- PROTIME 12.9 -- APTT 28.8 -- Lab 08/21/25 1635 CREATININE 1.50* EGFR 39.2* Lab 08/21/25 1637 ALT (SGPT) 136* AST (SGOT) 47* Lab 08/21/25 1637 PROTIME 12.9 INR 0.95 Brief Urine Lab Results (Last result in the past 365 days) Color Clarity Blood Leuk Est Nitrite Protein CREAT Urine HCG 08/17/25 1209 Yellow Clear Negative Negative Negative 30 mg/dL (1+) Microbiology Results Abnormal None MRI Brain Without Contrast Result Date: 08/22/2025 MRI BRAIN WO CONTRAST Date of Exam: 08/21/2025 11:35 PM EDT Indication: Stroke, follow up Transient L facial droop, dysarthria and gait disturbance -chronic right ICA stenosis and left ICA occlusion. Comparison: MRI of the brain 07/26/2025; CT head 08/21/2025 Technique: Routine multiplanar/multisequence sequence images of the brain were obtained without contrast administration. Findings: There are multiple small patchy areas of pathologic restricted diffusion within the subcortical white matter and periventricular white matters of the left frontal and parietal lobes. There are 2 new more increased abnormal restricted diffusion seen adjacent to the anterior horn of the left lateral ventricle chest both measuring approximately 6 mm in size. There is no evidence of acute hemorrhage. There are no abnormal extra-axial fluid collections. Again seen is absence of the flow-void of the left petrous, cavernous and supraclinoid portions of the left internal carotid artery. The flow void of the leftmiddle cerebral artery appears to be patent. Please correlate with recent CT angiogram of the head. Impression: Impression: There are multiple small patchy areas of pathologic restricted diffusion inthe left frontal and parietal lobes. There are 2 new areas of restricted diffusion seen adjacent tothe anterior horn of the left lateral ventricle. There is no evidence of acute hemorrhage. Electronically Signed: Ck Arredondo MD 08/22/2025 4:24 AM EDT Workstation ID: [id number] CT Angiogram Head w AI Analysis of LVO Result Date: 08/21/2025 CT ANGIOGRAM HEAD W AI ANALYSIS OF LVO, CT CEREBRAL PERFUSION W WO CONTRAST, CT ANGIOGRAM NECK Dateof Exam: 08/21/2025 4:29 PM EDT Indication: Neuro Deficit, acute, Stroke suspected Neuro deficit, acute stroke suspected. Comparison: Head CT from today, CTA of the head and neck dated 07/26/2025 Technique: CTA of the head was performed after the uneventful intravenous administration of iodinated contrast. Reconstructed coronal and sagittal images were also obtained. In addition, a 3-D volume rendered image was created for interpretation. Automated exposure control and iterative reconstruction methods were used. FINDINGS: Vascular Findings: Atherosclerotic plaque is seen within the right carotid bifurcation and right carotid siphon. Probable moderate to severe stenosis within the right supraclinoid ICA again noted. The right common carotid, remainder of the right ICA, middle cerebral, anterior cerebral, vertebral, and posterior cerebral arteries are patent without abrupt cut off or aneurysmal dilation. Apparent occlusion of the left petrous, cavernous, and supraclinoid ICA with reconstitution of the left ICA terminus. Occlusion of the left cavernous and supraclinoid ICA may be new since 07/26/2025, or these segments may be patent but poorly opacified due to technical factors/contrastbolus timing. Left distal cervical ICA is somewhat diminutive . Left common carotid artery appears unremarkable. Left middle cerebral, anterior cerebral, vertebral, and posterior cerebral arteries are patent without abrupt cut off or aneurysmal dilation. Basilar artery appears patent and appears unremarkable. Non-vascular Findings: For description of nonvascular intracranial findings, please refer to the noncontrast head CT performed the same date. No acute abnormality is identified within the visualized soft tissue or bony structures of the neck. The visualized lung apices are clear. CT Perfusion: CBF (<30%) volume: 0 mL Tmax (>6.0s) volume: 27 mL Mismatch volume: 27 mL Mismatch ratio: Infinite Impression: 1.Apparent occlusion of the left petrous, cavernous, and supraclinoid ICA with reconstitution of the left ICA terminus. Left middle and anterior cerebral arteries appear patent. Occlusionof the left petrous and cavernous ICA may be new since 07/26/2025, or these segments may be patent but poorly opacified due to technical factors/contrast bolus timing. 2.Otherwise, no intracranial large vessel occlusion is identified. 3.Probable moderate to severe stenosis within the right supraclinoid ICA. 4.CT perfusion study demonstrates patchy regions of prolonged Tmax greater than 6 seconds within the left frontoparietal region (27 mL). There is a larger, more confluent region of minimally prolonged Tmax greater than 4 seconds within the left MCA territory (approximately 169 mL). Findingsmay be related to altered hemodynamics related to known left ICA occlusion. At risk ischemic tissuewithin the left MCA territory is not excluded. No territorial core infarct is demonstrated. Of note, similar findings were present on the CT perfusion study from 07/26/2025. Please correlate with findings on MRI. The above findings were discussed with Juju Vasques and Michela López, stroke rn urgent care, via telephone on 08/21/2025 5:33 PM EDT. Electronically Signed: Ashvin Stockton MD 08/21/2025 5:41 PM EDT Workstation ID: [id number] CT Angiogram Neck Result Date: 08/21/2025 CT ANGIOGRAM HEAD W AI ANALYSIS OF LVO, CT CEREBRAL PERFUSION W WO CONTRAST, CT ANGIOGRAM NECK Dateof Exam: 08/21/2025 4:29 PM EDT Indication: Neuro Deficit, acute, Stroke suspected Neuro deficit, acute stroke suspected. Comparison: Head CT from today, CTA of the head and neck dated 07/26/2025 Technique: CTA of the head was performed after the uneventful intravenous administration of iodinated contrast. Reconstructed coronal and sagittal images were also obtained. In addition, a 3-D volume rendered image was created for interpretation. Automated exposure control and iterative reconstruction methods were used. FINDINGS: Vascular Findings: Atherosclerotic plaque is seen within the right carotid bifurcation and right carotid siphon. Probable moderate to severe stenosis within the right supraclinoid ICA again noted. The right common carotid, remainder of the right ICA, middle cerebral, anterior cerebral, vertebral, and posterior cerebral arteries are patent without abrupt cut off or aneurysmal dilation. Apparent occlusion of the left petrous, cavernous, and supraclinoid ICA with reconstitution of the left ICA terminus. Occlusion of the left cavernous and supraclinoid ICA may be new since 07/26/2025, or these segments may be patent but poorly opacified due to technical factors/contrastbolus timing. Left distal cervical ICA is somewhat diminutive . Left common carotid artery appears unremarkable. Left middle cerebral, anterior cerebral, vertebral, and posterior cerebral arteries are patent without abrupt cut off or aneurysmal dilation. Basilar artery appears patent and appears unremarkable. Non-vascular Findings: For description of nonvascular intracranial findings, please refer to the noncontrast head CT performed the same date. No acute abnormality is identified within the visualized soft tissue or bony structures of the neck. The visualized lung apices are clear. CT Perfusion: CBF (<30%) volume: 0 mL Tmax (>6.0s) volume: 27 mL Mismatch volume: 27 mL Mismatch ratio: Infinite Impression: 1.Apparent occlusion of the left petrous, cavernous, and supraclinoid ICA with reconstitution of the left ICA terminus. Left middle and anterior cerebral arteries appear patent. Occlusionof the left petrous and cavernous ICA may be new since 07/26/2025, or these segments may be patent but poorly opacified due to technical factors/contrast bolus timing. 2.Otherwise, no intracranial large vessel occlusion is identified. 3.Probable moderate to severe stenosis within the right supraclinoid ICA. 4.CT perfusion study demonstrates patchy regions of prolonged Tmax greater than 6 seconds within the left frontoparietal region (27 mL). There is a larger, more confluent region of minimally prolonged Tmax greater than 4 seconds within the left MCA territory (approximately 169 mL). Findingsmay be related to altered hemodynamics related to known left ICA occlusion. At risk ischemic tissuewithin the left MCA territory is not excluded. No territorial core infarct is demonstrated. Of note, similar findings were present on the CT perfusion study from 07/26/2025. Please correlate with findings on MRI. The above findings were discussed with Juju Vasques and Michela López, stroke rn urgent care, via telephone on 08/21/2025 5:33 PM EDT. Electronically Signed: Ashvin Stockton MD 08/21/2025 5:41 PM EDT Workstation ID: [id number] CT CEREBRAL PERFUSION WITH & WITHOUT CONTRAST Result Date: 08/21/2025 CT ANGIOGRAM HEAD W AI ANALYSIS OF LVO, CT CEREBRAL PERFUSION W WO CONTRAST, CT ANGIOGRAM NECK Dateof Exam: 08/21/2025 4:29 PM EDT Indication: Neuro Deficit, acute, Stroke suspected Neuro deficit, acute stroke suspected. Comparison: Head CT from today, CTA of the head and neck dated 07/26/2025 Technique: CTA of the head was performed after the uneventful intravenous administration of iodinated contrast. Reconstructed coronal and sagittal images were also obtained. In addition, a 3-D volume rendered image was created for interpretation. Automated exposure control and iterative reconstruction methods were used. FINDINGS: Vascular Findings: Atherosclerotic plaque is seen within the right carotid bifurcation and right carotid siphon. Probable moderate to severe stenosis within the right supraclinoid ICA again noted. The right common carotid, remainder of the right ICA, middle cerebral, anterior cerebral, vertebral, and posterior cerebral arteries are patent without abrupt cut off or aneurysmal dilation. Apparent occlusion of the left petrous, cavernous, and supraclinoid ICA with reconstitution of the left ICA terminus. Occlusion of the left cavernous and supraclinoid ICA may be new since 07/26/2025, or these segments may be patent but poorly opacified due to technical factors/contrastbolus timing. Left distal cervical ICA is somewhat diminutive . Left common carotid artery appears unremarkable. Left middle cerebral, anterior cerebral, vertebral, and posterior cerebral arteries are patent without abrupt cut off or aneurysmal dilation. Basilar artery appears patent and appears unremarkable. Non-vascular Findings: For description of nonvascular intracranial findings, please refer to the noncontrast head CT performed the same date. No acute abnormality is identified within the visualized soft tissue or bony structures of the neck. The visualized lung apices are clear. CT Perfusion: CBF (<30%) volume: 0 mL Tmax (>6.0s) volume: 27 mL Mismatch volume: 27 mL Mismatch ratio: Infinite Impression: 1.Apparent occlusion of the left petrous, cavernous, and supraclinoid ICA with reconstitution of the left ICA terminus. Left middle and anterior cerebral arteries appear patent. Occlusionof the left petrous and cavernous ICA may be new since 07/26/2025, or these segments may be patent but poorly opacified due to technical factors/contrast bolus timing. 2.Otherwise, no intracranial large vessel occlusion is identified. 3.Probable moderate to severe stenosis within the right supraclinoid ICA. 4.CT perfusion study demonstrates patchy regions of prolonged Tmax greater than 6 seconds within the left frontoparietal region (27 mL). There is a larger, more confluent region of minimally prolonged Tmax greater than 4 seconds within the left MCA territory (approximately 169 mL). Findingsmay be related to altered hemodynamics related to known left ICA occlusion. At risk ischemic tissuewithin the left MCA territory is not excluded. No territorial core infarct is demonstrated. Of note, similar findings were present on the CT perfusion study from 07/26/2025. Please correlate with findings on MRI. The above findings were discussed with Juju Vasques and Michela López, stroke rn urgent care, via telephone on 08/21/2025 5:33 PM EDT. Electronically Signed: Ashvin Stockton MD 08/21/2025 5:41 PM EDT Workstation ID: [id number] XR Chest 1 View Result Date: 08/21/2025 XR CHEST 1 VW Date of Exam: 08/21/2025 5:12 PM EDT Indication: Acute Stroke Protocol (onset < 12 hrs). Comparison: None available. Findings: The cardiomediastinal silhouette is within normal limits. Pulmonary vascularity appears normal. There is no focal airspace consolidation, pleural effusion, or pneumothorax. There are degenerative changes of the thoracic spine. Impression: Impression: No acute cardiopulmonary abnormality. Electronically Signed: Brock Durham MD 08/21/2025 5:40 PM EDT Workstation ID: [id number] CT Head Without Contrast Stroke Protocol Result Date: 08/21/2025 CT HEAD WO CONTRAST STROKE PROTOCOL Date of Exam: 08/21/2025 4:25 PM EDT Indication: Neuro deficit, acute, stroke suspected Neuro Deficit, acute, Stroke suspected. Comparison: Brain MRI 07/26/2025. Technique: Axial CT images were obtained of the head without contrast administration. Reconstructed coronal images were also obtained. Automated exposure control and iterative construction methods were used. Scan Time: 4:29 p.m. Results discussed with Joana Matute ED at 4:38 p.m. Findings: No evidence of acute intracranial hemorrhage or mass effect. No extra-axial collection. The vasques white matterdifferentiation is preserved. Mild white matter changes in the left hemisphere corresponding to findings on prior brain MRI. Ventricles and sulci are symmetric. The mastoid air cells and paranasal sinuses are well aerated. Globes and extraocular muscles are unremarkable. No acute osseous abnormality. Impression: Impression: No acute intracranial findings. Electronically Signed: Harry Bradford MD 08/21/2025 4:44 PM EDT Workstation ID: [id number] Results for orders placed during the hospital encounter of 07/26/25 Adult Transthoracic Echo Complete W/ Cont if Necessary Per Protocol (With Agitated Saline) 07/27/2025 12:17 PM Interpretation Summary Left ventricular ejection fraction appears to be 56 - 60%. Left ventricular wall thickness is consistent with hypertrophy. Saline test results are negative. I have personally reviewed the therapy plans: [] PT/OT/ ST Therapy Plans Current medications: Scheduled Meds:aspirin, 81 mg, Oral, Daily Or aspirin, 300 mg, Rectal, Daily atorvastatin, 40 mg, Oral, Nightly [Held by provider] carvedilol, 25 mg, Oral, Q12H cetirizine, 10 mg, Oral, Daily clopidogrel, 75 mg, Oral, Daily heparin (porcine), 5,000 Units, Subcutaneous, Q8H insulin glargine, 20 Units, Subcutaneous, Daily insulin lispro, 2-7 Units, Subcutaneous, 4x Daily With Meals & Nightly [Held by provider] lisinopril, 10 mg, Oral, Daily pantoprazole, 40 mg, Intravenous, Q AM sodium chloride, 10 mL, Intravenous, Q12H [Held by provider] tamsulosin, 0.4 mg, Oral, Daily venlafaxine XR, 75 mg, Oral, Daily Continuous Infusions:sodium chloride, 100 mL/hr, Last Rate: 100 mL/hr (10/07/25 0542) PRN Meds:. acetaminophen OR acetaminophen OR acetaminophen senna-docusate sodium AND polyethylene glycol AND bisacodyl AND bisacodyl Calcium Replacement - Follow Nurse / BPA Driven Protocol dextrose dextrose glucagon (human recombinant) Magnesium Cardiology Dose Replacement - Follow Nurse / BPA Driven Protocol Phosphorus Replacement - Follow Nurse / BPA Driven Protocol Potassium Replacement - Follow Nurse / BPA Driven Protocol sodium chloride sodium chloride sodium chloride Assessment & Plan Assessment & Plan Active Hospital Problems Diagnosis POA ICAO (internal carotid artery occlusion) [I65.29] Yes Carotid stenosis, bilateral [I65.23] Yes Transient ischemic attack (TIA) [G45.9] Yes Facial droop [R29.810] Yes Type 2 diabetes mellitus with hyperlipidemia [E11.69, E78.5] Yes Essential hypertension [I10] Yes Type 2 diabetes mellitus with hyperglycemia [E11.65] Yes Mixed hyperlipidemia [E78.2] Yes Resolved Hospital Problems No resolved problems to display. Brief Hospital Course to date: Brynn Cox is a 60 y.o. female with history of TIA, HTN, BL carotid stenosis, T2DM on insulin. She had a recent TIA in July and was started on DAPT however self discontinued plavix since then due to side effects. She presented to [facility] following an episode of L sided facial droop and dysarthria that [id number] minutes. She was evaluated by tele neuro, loaded with DAPT. Transferred to [facility] for neurology evaluation. Left-sided facial droop, resolved Bilateral carotid stenosis -CT imaging shows areas of L ICA occlusion with distal reconstitution, right mod-severe stenosis CHARANJIT. Prolonged T max L MCA territory. - MRI brain shows multiple small patchy areas of pathologic restricted diffusion left frontal and parietal lobes. 2 new areas of restricted diffusion adjacent to anterior horn of left lateral ventricle. -Stroke team following, continue ASA, Plavix -Echo in July with normal EF and negative bubble study - saw [facility] outpt, [facility], who recommended no intervention from surgical standpoint CKD - monitor renal function DM2 - A1c 6.9 in 08/10 -Continue Lantus -SSI Expected Discharge Location and Transportation: home Expected Discharge Expected Discharge Date: 08/23/2025; Expected Discharge Time: VTE Prophylaxis: Pharmacologic & mechanical VTE prophylaxis orders are present. AM-PAC 6 Clicks Score (PT): 24 (08/22/25 0800) CODE STATUS: Code Status and Medical Interventions: CPR (Attempt to Resuscitate); Full Support Ordered at: 08/21/25 2350 Code Status (Patient has no pulse and is not breathing): CPR (Attempt to Resuscitate) Medical Interventions (Patient has pulse or is breathing): Full Support Amanda Whitlock DO 08/22/25 documented in this encounter H&P Notes * Beto Mars MD - 08/21/2025 9:06 PM EDT Images from the original note were not included. [facility] HISTORY AND PHYSICAL Patient Name: Brynn Cox : 1965 Primary Care Physician: Araceli Doyle MD Date of admission: 08/21/2025 Subjective Subjective Chief Complaint: Difficulty speaking, L facial droop HPI: Brynn Cox is a 60 y.o. female with hx TIA, HTN, BL carotid stenosis, T2DM on insulin. She hada recent TIA in July and was started on DAPT however self discontinued plavix since then due to side effects. She presented to [facility] yesterday afternoon following an episode of L sided facial droop and dysarthria that lasted 10-15 minutes. Also reported unsteadiness of gait. CTH - ve but CTA showed CHARANJIT stenosis (also seen in July), she also has a known left ICA supraclinoid occlusion, possible progression. She is currently awaiting vascular referral for carotid intervention. She was evaluated by tele neuro who loaded with DAPT, and recommends transfer here. Personal History Past Medical History: Diagnosis Date Diabetic retinopathy associated with type 2 diabetes mellitus Essential hypertension Hyperlipidemia Hypertension Otitis media 04/20/2024 Type 2 diabetes mellitus Vitamin D deficiency Past Surgical History: Procedure Laterality Date BREAST AUGMENTATION CHOLECYSTECTOMY TUBAL ABDOMINAL LIGATION Family History: family history includes Cancer in her maternal grandmother; Coronary artery diseasein her father and mother; Diabetes in her father and mother; Heart attack in her father and maternal grandmother; Hypertension in her father. Social History: reports that she has never smoked. She has been exposed to tobacco smoke. She has never used smokeless tobacco. She reports that she does not currently use alcohol. She reports that she does not use drugs. Social History Social History Narrative Not on file Medications: Available home medication information reviewed. TERRY LAWSONPEN, FreeStyle Jovita 3 Plus Sensor, FreeStyle Jovita 3 Sensor, Tirzepatide, aspirin, atorvastatin, carvedilol, cetirizine, clopidogrel, estradiol, ezetimibe, lisinopril, tamsulosin, and venlafaxine XR Allergies Allergen Reactions Codeine GI Intolerance Vomiting Sulfa Antibiotics GI Intolerance vomiting Objective Objective Vital Signs: Temp: [97.9 ??F (36.6 ??C)-98.2 ??F (36.8 ??C)] 97.9 ??F (36.6 ??C) Heart Rate: [95-100] 100 Resp: [16] 16 BP: (140-154)/(73-86) 153/81 Total (NIH Stroke Scale): 0 Physical Exam AAOx3 EOMI PERRL L eye conjunctival injection Facial weakness L side Tongue midline Neck flexion intact Strength and sensation equal and intact BL UE and LE Heart RRR Lungs CTAB Abd soft No peripheral edema Result Review: I have personally reviewed the results from the time of this admission to 08/22/2025 00:11 EDT and agree with these findings: [x] Laboratory list / accordion [] Microbiology [x] Radiology [x] EKG/Telemetry [x] Cardiology/Vascular [] Pathology [x] Old records [] Other: Most notable findings include: See A+P LAB RESULTS: Lab 08/21/25 1637 08/21/25 1635 WBC 9.63 -- HEMOGLOBIN 10.6* -- HEMOGLOBIN, POC -- 9.9* HEMATOCRIT 31.1* -- HEMATOCRIT POC -- 29* PLATELETS 248 -- NEUTROS ABS 7.35* -- IMMATURE GRANS (ABS) 0.02 -- LYMPHS ABS 1.60 -- MONOS ABS 0.65 -- EOS ABS 0.00 -- MCV 92.0 -- PROTIME 12.9 -- INR 0.95 -- APTT 28.8 -- Lab 08/21/25 1635 CREATININE 1.50* EGFR 39.2* Lab 08/21/25 1637 ALT (SGPT) 136* AST (SGOT) 47* UA 07/26/2025 18:27 08/17/2025 12:03 08/17/2025 12:09 Urinalysis Squamous Epithelial Cells, UA 3-6 0-2 Specific [place], UA 1.019 1.021 Ketones, UA Trace Negative Negative Blood, UA Negative Negative Leukocytes, UA Small (1+) Negative Negative Nitrite, UA Negative Negative RBC, UA 0-2 0-2 WBC, UA 0-2 0-2 Bacteria, UA Trace None Seen Microbiology Results (last 10 days) No results found for the last [address] Angiogram Head w AI Analysis of LVO Result Date: 08/21/2025 CT ANGIOGRAM HEAD W AI ANALYSIS OF LVO, CT CEREBRAL PERFUSION W WO CONTRAST, CT ANGIOGRAM NECK Dateof Exam: 08/21/2025 4:29 PM EDT Indication: Neuro Deficit, acute, Stroke suspected Neuro deficit, acute stroke suspected. Comparison: Head CT from today, CTA of the head and neck dated 07/26/2025 Technique: CTA of the head was performed after the uneventful intravenous administration of iodinated contrast. Reconstructed coronal and sagittal images were also obtained. In addition, a 3-D volume rendered image was created for interpretation. Automated exposure control and iterative reconstruction methods were used. FINDINGS: Vascular Findings: Atherosclerotic plaque is seen within the right carotid bifurcation and right carotid siphon. Probable moderate to severe stenosis within the right supraclinoid ICA again noted. The right common carotid, remainder of the right ICA, middle cerebral, anterior cerebral, vertebral, and posterior cerebral arteries are patent without abrupt cut off or aneurysmal dilation. Apparent occlusion of the left petrous, cavernous, and supraclinoid ICA with reconstitution of the left ICA terminus. Occlusion of the left cavernous and supraclinoid ICA may be new since 07/26/2025, or these segments may be patent but poorly opacified due to technical factors/contrastbolus timing. Left distal cervical ICA is somewhat diminutive . Left common carotid artery appears unremarkable. Left middle cerebral, anterior cerebral, vertebral, and posterior cerebral arteries are patent without abrupt cut off or aneurysmal dilation. Basilar artery appears patent and appears unremarkable. Non-vascular Findings: For description of nonvascular intracranial findings, please refer to the noncontrast head CT performed the same date. No acute abnormality is identified within the visualized soft tissue or bony structures of the neck. The visualized lung apices are clear. CT Perfusion: CBF (<30%) volume: 0 mL Tmax (>6.0s) volume: 27 mL Mismatch volume: 27 mL Mismatch ratio: Infinite Impression: 1.Apparent occlusion of the left petrous, cavernous, and supraclinoid ICA with reconstitution of the left ICA terminus. Left middle and anterior cerebral arteries appear patent. Occlusionof the left petrous and cavernous ICA may be new since 07/26/2025, or these segments may be patent but poorly opacified due to technical factors/contrast bolus timing. 2.Otherwise, no intracranial large vessel occlusion is identified. 3.Probable moderate to severe stenosis within the right supraclinoid ICA. 4.CT perfusion study demonstrates patchy regions of prolonged Tmax greater than 6 seconds within the left frontoparietal region (27 mL). There is a larger, more confluent region of minimally prolonged Tmax greater than 4 seconds within the left MCA territory (approximately 169 mL). Findingsmay be related to altered hemodynamics related to known left ICA occlusion. At risk ischemic tissuewithin the left MCA territory is not excluded. No territorial core infarct is demonstrated. Of note, similar findings were present on the CT perfusion study from 07/26/2025. Please correlate with findings on MRI. The above findings were discussed with Juju Vasques and Michela López, stroke rn urgent care, via telephone on 08/21/2025 5:33 PM EDT. Electronically Signed: Ashvin Stockton MD 08/21/2025 5:41 PM EDT Workstation ID: [id number] CT Angiogram Neck Result Date: 08/21/2025 CT ANGIOGRAM HEAD W AI ANALYSIS OF LVO, CT CEREBRAL PERFUSION W WO CONTRAST, CT ANGIOGRAM NECK Dateof Exam: 08/21/2025 4:29 PM EDT Indication: Neuro Deficit, acute, Stroke suspected Neuro deficit, acute stroke suspected. Comparison: Head CT from today, CTA of the head and neck dated 07/26/2025 Technique: CTA of the head was performed after the uneventful intravenous administration of iodinated contrast. Reconstructed coronal and sagittal images were also obtained. In addition, a 3-D volume rendered image was created for interpretation. Automated exposure control and iterative reconstruction methods were used. FINDINGS: Vascular Findings: Atherosclerotic plaque is seen within the right carotid bifurcation and right carotid siphon. Probable moderate to severe stenosis within the right supraclinoid ICA again noted. The right common carotid, remainder of the right ICA, middle cerebral, anterior cerebral, vertebral, and posterior cerebral arteries are patent without abrupt cut off or aneurysmal dilation. Apparent occlusion of the left petrous, cavernous, and supraclinoid ICA with reconstitution of the left ICA terminus. Occlusion of the left cavernous and supraclinoid ICA may be new since 07/26/2025, or these segments may be patent but poorly opacified due to technical factors/contrastbolus timing. Left distal cervical ICA is somewhat diminutive . Left common carotid artery appears unremarkable. Left middle cerebral, anterior cerebral, vertebral, and posterior cerebral arteries are patent without abrupt cut off or aneurysmal dilation. Basilar artery appears patent and appears unremarkable. Non-vascular Findings: For description of nonvascular intracranial findings, please refer to the noncontrast head CT performed the same date. No acute abnormality is identified within the visualized soft tissue or bony structures of the neck. The visualized lung apices are clear. CT Perfusion: CBF (<30%) volume: 0 mL Tmax (>6.0s) volume: 27 mL Mismatch volume: 27 mL Mismatch ratio: Infinite Impression: 1.Apparent occlusion of the left petrous, cavernous, and supraclinoid ICA with reconstitution of the left ICA terminus. Left middle and anterior cerebral arteries appear patent. Occlusionof the left petrous and cavernous ICA may be new since 07/26/2025, or these segments may be patent but poorly opacified due to technical factors/contrast bolus timing. 2.Otherwise, no intracranial large vessel occlusion is identified. 3.Probable moderate to severe stenosis within the right supraclinoid ICA. 4.CT perfusion study demonstrates patchy regions of prolonged Tmax greater than 6 seconds within the left frontoparietal region (27 mL). There is a larger, more confluent region of minimally prolonged Tmax greater than 4 seconds within the left MCA territory (approximately 169 mL). Findingsmay be related to altered hemodynamics related to known left ICA occlusion. At risk ischemic tissuewithin the left MCA territory is not excluded. No territorial core infarct is demonstrated. Of note, similar findings were present on the CT perfusion study from 07/26/2025. Please correlate with findings on MRI. The above findings were discussed with Juju Vasques and Michela López, stroke rn urgent care, via telephone on 08/21/2025 5:33 PM EDT. Electronically Signed: Ashvin Stockton MD 08/21/2025 5:41 PM EDT Workstation ID: [id number] CT CEREBRAL PERFUSION WITH & WITHOUT CONTRAST Result Date: 08/21/2025 CT ANGIOGRAM HEAD W AI ANALYSIS OF LVO, CT CEREBRAL PERFUSION W WO CONTRAST, CT ANGIOGRAM NECK Dateof Exam: 08/21/2025 4:29 PM EDT Indication: Neuro Deficit, acute, Stroke suspected Neuro deficit, acute stroke suspected. Comparison: Head CT from today, CTA of the head and neck dated 07/26/2025 Technique: CTA of the head was performed after the uneventful intravenous administration of iodinated contrast. Reconstructed coronal and sagittal images were also obtained. In addition, a 3-D volume rendered image was created for interpretation. Automated exposure control and iterative reconstruction methods were used. FINDINGS: Vascular Findings: Atherosclerotic plaque is seen within the right carotid bifurcation and right carotid siphon. Probable moderate to severe stenosis within the right supraclinoid ICA again noted. The right common carotid, remainder of the right ICA, middle cerebral, anterior cerebral, vertebral, and posterior cerebral arteries are patent without abrupt cut off or aneurysmal dilation. Apparent occlusion of the left petrous, cavernous, and supraclinoid ICA with reconstitution of the left ICA terminus. Occlusion of the left cavernous and supraclinoid ICA may be new since 07/26/2025, or these segments may be patent but poorly opacified due to technical factors/contrastbolus timing. Left distal cervical ICA is somewhat diminutive . Left common carotid artery appears unremarkable. Left middle cerebral, anterior cerebral, vertebral, and posterior cerebral arteries are patent without abrupt cut off or aneurysmal dilation. Basilar artery appears patent and appears unremarkable. Non-vascular Findings: For description of nonvascular intracranial findings, please refer to the noncontrast head CT performed the same date. No acute abnormality is identified within the visualized soft tissue or bony structures of the neck. The visualized lung apices are clear. CT Perfusion: CBF (<30%) volume: 0 mL Tmax (>6.0s) volume: 27 mL Mismatch volume: 27 mL Mismatch ratio: Infinite Impression: 1.Apparent occlusion of the left petrous, cavernous, and supraclinoid ICA with reconstitution of the left ICA terminus. Left middle and anterior cerebral arteries appear patent. Occlusionof the left petrous and cavernous ICA may be new since 07/26/2025, or these segments may be patent but poorly opacified due to technical factors/contrast bolus timing. 2.Otherwise, no intracranial large vessel occlusion is identified. 3.Probable moderate to severe stenosis within the right supraclinoid ICA. 4.CT perfusion study demonstrates patchy regions of prolonged Tmax greater than 6 seconds within the left frontoparietal region (27 mL). There is a larger, more confluent region of minimally prolonged Tmax greater than 4 seconds within the left MCA territory (approximately 169 mL). Findingsmay be related to altered hemodynamics related to known left ICA occlusion. At risk ischemic tissuewithin the left MCA territory is not excluded. No territorial core infarct is demonstrated. Of note, similar findings were present on the CT perfusion study from 07/26/2025. Please correlate with findings on MRI. The above findings were discussed with Juju Vasques and Michela López, stroke rn urgent care, via telephone on 08/21/2025 5:33 PM EDT. Electronically Signed: Ashvin Stockton MD 08/21/2025 5:41 PM EDT Workstation ID: [id number] XR Chest 1 View Result Date: 08/21/2025 XR CHEST 1 VW Date of Exam: 08/21/2025 5:12 PM EDT Indication: Acute Stroke Protocol (onset < 12 hrs). Comparison: None available. Findings: The cardiomediastinal silhouette is within normal limits. Pulmonary vascularity appears normal. There is no focal airspace consolidation, pleural effusion, or pneumothorax. There are degenerative changes of the thoracic spine. Impression: Impression: No acute cardiopulmonary abnormality. Electronically Signed: Brock Durham MD 08/21/2025 5:40 PM EDT Workstation ID: [id number] CT Head Without Contrast Stroke Protocol Result Date: 08/21/2025 CT HEAD WO CONTRAST STROKE PROTOCOL Date of Exam: 08/21/2025 4:25 PM EDT Indication: Neuro deficit, acute, stroke suspected Neuro Deficit, acute, Stroke suspected. Comparison: Brain MRI 07/26/2025. Technique: Axial CT images were obtained of the head without contrast administration. Reconstructed coronal images were also obtained. Automated exposure control and iterative construction methods were used. Scan Time: 4:29 p.m. Results discussed with Joana Matute ED at 4:38 p.m. Findings: No evidence of acute intracranial hemorrhage or mass effect. No extra-axial collection. The vasques white matterdifferentiation is preserved. Mild white matter changes in the left hemisphere corresponding to findings on prior brain MRI. Ventricles and sulci are symmetric. The mastoid air cells and paranasal sinuses are well aerated. Globes and extraocular muscles are unremarkable. No acute osseous abnormality. Impression: Impression: No acute intracranial findings. Electronically Signed: Harry Bradford MD 08/21/2025 4:44 PM EDT Workstation ID: [id number] Results for orders placed during the hospital encounter of 07/26/25 Adult Transthoracic Echo Complete W/ Cont if Necessary Per Protocol (With Agitated Saline) 07/27/2025 12:17 PM Interpretation Summary Left ventricular ejection fraction appears to be 56 - 60%. Left ventricular wall thickness is consistent with hypertrophy. Saline test results are negative. Assessment & Plan Assessment & Plan ICAO (internal carotid artery occlusion) Type 2 diabetes mellitus with hyperlipidemia Essential hypertension Mixed hyperlipidemia Type 2 diabetes mellitus with hyperglycemia Facial droop Transient ischemic attack (TIA) Carotid stenosis, bilateral Waxing and waning L sided facial droop Bilateral carotid stenosis -CT imaging shows areas of L ICA occlusion with distal reconstitution, right mod-severe stenosis CHARANJIT. Prolonged T max L MCA territory. MRI is currently pending -IVF to help with perfusion -Stroke team following, on DAPT and statin -currently getting MRI -Neurointerventional vs vascular for symptomatic carotid disease Elevated serum creatinine -on POC testing, will confirm with BMP T2DM -on long acting insulin 40u qam and 16 qhs at home as well as GLP 1. Currently NPO, will reduce long acting to 20u qd and cover with corrective factor for now Lab Results Component Value Date HGBA1C 6.91 (H) 07/27/2025 HTN -holding home meds for permissive HTN GI ppx -PPI Depression -effexor VTE Prophylaxis: Pharmacologic & mechanical VTE prophylaxis orders are present. CODE STATUS: Code Status and Medical Interventions: CPR (Attempt to Resuscitate); Full Support Ordered at: 08/21/25 1930 Code Status (Patient has no pulse and is not breathing): CPR (Attempt to Resuscitate) Medical Interventions (Patient has pulse or is breathing): Full Support Expected Discharge Expected discharge date/ time has not been documented. Beto Mars MD 08/22/25 documented in this encounter Consult Notes * Maulik Yun MD - 08/22/2025 1:49 PM EDT NEUROSURGERY CONSULTATION Referring Provider: Dr. Whitlock Patient Care Team: Araceli Doyle MD as PCP - General (Family Medicine) Katrina Garrett MD as Consulting Physician (Endocrinology) Tamiko Boyle APRN as Nurse Practitioner (Nurse Practitioner) Chief Complaint: Carotid occlusion history History of Present Illness: I saw a 60-year-old female with a complex history of diabetes with A1c's in the past as high as 12-13. She is accompanied by her who provided some of her history. She has a history of diabetic retinopathy does not like to take medicines and is somewhat compliant and July of this year she had a thromboembolic shower was diagnosed with a left sided internal carotid artery occlusion andwas seen and evaluated by vascular surgery She Elier presented after stopping taking dual antiplatelet therapy with another thromboembolic shower to the left hemisphere consistent with her left sided shower I was consulted she describes stability of intermittent right-sided symptomatology in the hand Review of Systems: Musculoskeletal and Neurological systems were reviewed and are negative except for: Musculoskeletal: positive for mid clumsiness in the right hand left-sided eye redness and itching History: Past Medical History: Diagnosis Date Diabetic retinopathy associated with type 2 diabetes mellitus Essential hypertension Hyperlipidemia Hypertension Otitis media 04/20/2024 Type 2 diabetes mellitus Vitamin D deficiency , Past Surgical History: Procedure Laterality Date BREAST AUGMENTATION CHOLECYSTECTOMY TUBAL ABDOMINAL LIGATION , Family History Problem Relation Age of Onset Diabetes Mother Coronary artery disease Mother Coronary artery disease Father Hypertension Father Diabetes Father Heart attack Father Cancer Maternal Grandmother Heart attack Maternal Grandmother , Social History Tobacco Use Smoking status: Never Passive exposure: Past Smokeless tobacco: Never Vaping Use Vaping status: Never Used Substance Use Topics Alcohol use: Not Currently Drug use: Never , Medications Prior to Admission Medication Sig Dispense Refill Last Dose/Taking aspirin 81 MG chewable tablet Chew 1 tablet Daily. 90 tablet 2 08/21/2025 atorvastatin (LIPITOR) 80 MG tablet Take 1 tablet by mouth Daily. 08/20/2025 Evening carvedilol (COREG) 25 MG tablet Take 1 tablet by mouth Every 12 (Twelve) Hours. (Patient taking differently: Take 1 tablet by mouth Every 12 (Twelve) Hours. Patients states only taking one time per day) 08/20/2025 Evening cetirizine (zyrTEC) 10 MG tablet Take 1 tablet by mouth Daily. 08/20/2025 Evening clopidogrel (PLAVIX) 75 MG tablet Take 1 tablet by mouth Daily. 90 tablet 2 08/21/2025 Insulin Glargine (BASAGLAR KWIKPEN) 100 UNIT/ML injection pen Inject 48 Units under the skin into the appropriate area as directed Daily. (Patient taking differently: Inject 40 Units under the skin into the appropriate area as directed Daily. Takes 40 in morning and 16 units at night) 45 mL 1 08/21/2025 Morning lisinopril (PRINIVIL,ZESTRIL) 10 MG tablet Take 1 tablet by mouth Daily. 08/20/2025 Evening Mounjaro 7.5 MG/0.5ML solution auto-injector Inject 7.5 mg under the skin into the appropriate areaas directed 1 (One) Time Per Week. 6 mL 1 08/19/2025 tamsulosin (FLOMAX) 0.4 MG capsule 24 hr capsule Take 1 capsule by mouth Daily. 30 capsule 1 08/20/2025 Evening venlafaxine XR (EFFEXOR-XR) 75 MG 24 hr capsule Take 1 capsule by mouth Daily. 08/20/2025 Evening Continuous Glucose Sensor (FreeStyle Jovita 3 Plus Sensor) Use as directed every 15 days 6 each 0 Continuous Glucose Sensor (FreeStyle Jovita 3 Sensor) misc Inject 1 each under the skin into the appropriate area as directed Every 14 (Fourteen) Days. 2 each 6 estradiol (VAGIFEM) 10 MCG tablet vaginal tablet Insert 1 tablet into the vagina 2 (Two) Times a Week. ezetimibe (Zetia) 10 MG tablet Take 1 tablet by mouth Daily. 30 tablet 11 Allergies: Codeine and Sulfa antibiotics Physical Exam: Vital Signs: Blood pressure 153/84, pulse 95, temperature 98 ??F (36.7 ??C), temperature source Oral, resp. rate 16, height 170.2 cm (67 ), weight 73.6 kg (162 lb 3.2 oz), SpO2 98%. She is wide-awake alert and follows commands Her pupils are symmetric left eye is quite injected and erythematous secondary to local injection Face is symmetric slight dysarthria noted Face sensation is normal tongue is midline Very slight motor drift right upper extremity with a little bit of dysmetria 5 out of 5 strength lower extremities with bilateral sensory intact Extremities appear warm and well-perfused Data Review: Personally reviewed both old and new MRIs there is a flow-void disruption of the left supraclinoid that speaks to the chronicity of this left internal carotid artery occlusion at the skull base. Restricted diffusion of the left lateral area seen consistent with prior strokes with perhaps 2 new lesions seen CTA of the head and neck reviewed shows dense calcification of the right carotid with diffuse intracranial atherosclerotic changes all these findings were discussed with the family Tmax discrepancy noted consistent with occlusion Diagnosis: 1. History of left-sided chronic internal carotid artery occlusion 2. Severe intracranial atherosclerosis with calcific disease of the right sided cavernous 3. Noncompliance she stopped her dual antiplatelet therapy prior to admission 4. Possible higher grade intracranial stenosis with no evidence of hemodynamic failure based on clinical exam 5. Diabetes Treatment Recommendations: 1. I do recommend MRA of the head and neck with and without contrast to evaluate the presence of high-grade intracranial stenosis and allows us to potentially defer invasive angiography but that is an option should it show higher grade stenosis 2. I agree with reloading her on dual antiplatelet therapy aspirin and Plavix given her location and since he had this will allow her to be potentially managed with tPA should she suffer from anotherstroke I did explain the signs and symptoms to look for necessitate referral back 3. I will review the MRA and consider diagnostic angiogram if that shows a high- grade lesion that being said I suspect we should be able to try to pivot this to an outpatient allow her to recover anddiscuss intracranial stenting options at a later date should they be necessary but we will review MRA's and make final recommendations 4. She will need outpatient follow-up with both vascular neurology, cardiology (she may be a candidate for Repatha) depending the results of the MRA we will see her back in 6 to 12 months for follow-up of the plumbing to check for progression I spent an hour in the care of the patient discussing plan of care risks etc. Maulik Yun MD 08/22/25 13:49 EDT * Liam Sykes RN - 08/22/2025 10:54 AM EDT Consult for diabetes education received Chart reviewed. Pt was seen at bedside today. Permission given for visit. Patient sen 1 mo ago and voices no new changes in diabetes care Discussed and taught patient about type 2 diabetes self-management, risk factors, and importance ofblood glucose control to reduce complications. Target blood glucose readings and A1c goals per ADA were reviewed. Reviewed with patient current A1c 6.9 as of july and discussed its significance. Reviewed the following ADA survival skill concepts with pt: Meal planning: Discussed pts current eating pattern and potential strategies to help improve it. Suggested ???the plate method?? as a potential healthy eating plan and reviewed this with pt. Safe medication administration: Reviewed pts current medication regimen. Encouraged pt to take medications as prescribed and contact provider or pharmacist if they are experiencing side effects. Monitoring (timing and technique): Encouraged pt to monitor blood sugar at home 1+ times per day and to call PCP if blood sugar is trending high. Encouraged to keep record of blood glucose [...] the rule of 15s after receiving instruction. Sick day management: Reviewed general sick day guidelines with pt, including drinking plenty of water, keeping simple carbs handy such as jell-o or popsicles, checking blood glucose more often (every2-4 hours or as directed by provider) Encouraged pt to make a sick-day kit [...] provider. Pt encouraged to attend scheduled appointments. Thank you for this consult. Not a candidate for the stroke/diabetes class as ...no evidence of acute/subacute infarct or hemorrhage per stroke notes Total time spent reviewing chart, preparing education/materials, providing education at bedside, and coordinating care approx 30 minutes. * Lauri Omer MD - 08/21/2025 5:18 PM EDT [facility] Teleneurology Note Patient Name: Brynn Cox : 1965 Primary Care Physician: Araceli Doyle MD Referring Site: [place] Location of Neurologist: [facility] Subjective Teleneurology Initial Data Neurologist Evaluation Date: 08/21/25 Neurologist Evaluation Time: 1700 Date Last Known Well: 08/21/25 Time Last Known Well: 1530 History 60 years old right-handed white female with known diagnosis of hypertension, type 2 diabetes, chronic left ICA supraclinoid stenosis, right supraclinoid ICA calcification with moderate to severe stenosis, recent left MCA watershed subacute stroke in July 2025 with no residual deficit. Today presented to the hospital for transient symptoms of dysarthria and left facial droop. Symptoms startedaround 3:30 PM lasted for couple minutes then resolved and reoccurred in a few minutes they lasted for less than 10 minutes and resolved. Patient supposed to be on dual antiplatelet therapy with aspirin and Plavix but reportedly by nursing staff patient stopped taking her Plavix 2 days ago due to side effect reported by the patient as causing headache. Patient currently back to baseline with NIH score of 0. She denied smoking, alcohol drinking or drug illicit. She states that she usually keeps herself well-hydrated specially after the episode of syncope last month when she was diagnosed with a stroke. Stroke Risk Factors/ Pertinent Data Stroke risk factors: prior stroke/ TIA, hypertension, diabetes, dyslipidemia Anticoagulants prior to arrival: none Antiplatelets prior to arrival: aspirin, clopidogrel (Plavix) Statins prior to arrival: atorvastatin (Lipitor) Scoring Scales Modified Oxbow Scale Pre-Stroke Modified Dinah Scale: 0 - No Symptoms at all. Intracerebral Hemmorhage (ICH) Score Tiffanie Coma Score: 13-15 Age>=80: no Ector Coma Scale Best Eye Response: Spontaneous Best Verbal Response: Oriented Best Motor Response: Follows commands Ector Coma Scale Score: 15 NIH Stroke Scale NIHSS Performed Date: 08/21/25 NIHSS Performed Time: 1709 Interval: baseline 1a. Level of Consciousness: 0-->Alert, keenly responsive 1b. LOC Questions: 0-->Answers both questions correctly 1c. LOC Commands: 0-->Performs both tasks correctly 2. Best Gaze: 0-->Normal 3. Visual: 0-->No visual loss 4. Facial Palsy: 0-->Normal symmetrical movements 5a. Motor Arm, Left: 0-->No drift, limb holds 90 (or 45) degrees for full 10 secs 5b. Motor Arm, Right: 0-->No drift, limb holds 90 (or 45) degrees for full 10 secs 6a. Motor Leg, Left: 0-->No drift, leg holds 30 degree position for full 5 secs 6b. Motor Leg, Right: 0-->No drift, leg holds 30 degree position for full 5 secs 7. Limb Ataxia: 0-->Absent 8. Sensory: 0-->Normal, no sensory loss 9. Best Language: 0-->No aphasia, normal 10. Dysarthria: 0-->Normal 11. Extinction and Inattention (formerly Neglect): 0-->No abnormality Total (NIH Stroke Scale): 0 Review of Systems Review of Systems Negative except what of what mentioned in HPI Objective Exam Exam performed with the help of production support supervisor from the referring site Neurological Exam General appearance: Well developed, well nourished, well groomed, alert and cooperative. Higher integrative function: Oriented to time, place, person, intact recent and remote memory, attention span, concentration and language. Spontaneous speech, fund of vocabulary are normal. CN II: Normal visual kline. CN III IV : Extraocular movements are full without nystagmus. Pupils are equal, round, and reactive to light. CN V: Normal facial sensation and strength of muscles of mastication. CN VII: Facial movements are symmetric, no weakness. CN VIII: Auditory acuity is normal. CN IX & X: Symmetric palatal movement. CN XI: Sternocleidomastoid and trapezius are normal. No weakness. CN XII: The tongue is midline. No atrophy or fasciculations. Motor: BUE and BLE 5/5. No fasciculations, rigidity, spasticity or abnormal movements. Sensation: Normal to light touch and temperature throughout Station and gait: Deferred. Muscle stretch reflexes: Reflexes normal/symmetric, plantars downgoing. Coordination: Finger to nose test showed no dysmetria. Result Review Results Personal review of JOURNALIST imaging:(Official report by radiologist pending) Imaging CT Imaging Review: CT Imaging reviewed, NO acute infarct/ hemorrhage seen CTA Imaging Review: CTA Imaging reviewed, NO large vessel occlusion or severe stenosis seen CT Perfusion Review: CT perfusion reviewed, ABNORMAL CT Perfusion Details: Left MCA penumbra, no core infarct CT angio head and neck showed chronic left supraclinoid ICA occlusion, moderate to severe right supraclinoid ICA stenosis. Thrombolytic Thrombolytics: thrombolytic not given Thrombolytic Exclusion Criteria: Significant head trauma or prior stroke in the previous 3 months Thrombolytic Relative Exclusions for All Patients: Only minor non-disabling symptoms Assessment & Plan Assessment/ Plan Assessment: Acute Stroke Evaluation: Suspected TIA or non disabling stroke- the risks of IV thrombolytic outweigh the benefits of treatment Symptomatic supraclinoid right ICA stenosis Chronic left supraclinoid ICA occlusion Essential hypertension Mixed hyperlipidemia Type 2 diabetes Plan: - Load with Plavix 300 mg - Aspirin 325 mg - Pantoprazole 40 mg daily while on DAPT - Lipitor 80 mg daily - Keep blood pressure permissive do not treat unless above 220/120 - MRI brain without contrast - Patient will benefit from transfer to [facility] for diagnostic cerebral angiogram and possible stenting on the right ICA. - Plan discussed with patient, family, ER provider Dr. [place] and nursing staff. Dictated utilizing Dragon dictation . Disposition Disposition: The patient will be transfered to another institution for further evaluation and management Medical Decision Making Medical Data Reviewed: Data reviewed including: clinical labs, radiology and/or medical tests, Obtaining/ reviewing old medical records, Obtaining case history from another source, Independent reviewof JOURNALIST images Length of visit: 60 minutes Lauri Taylor MD, saw the patient on 08/21/25 at 1700 for an initial in-patient or emergency room telememedicine face to face consult using interactive technology for 60 minutes. The location of the patient was [place]. I was located at [place]. I have proceeded with this evaluation at the request of the referring practitioner as it is felt richard an emergency setting and no appropriate specialist is available to perform this evaluation. The [facility] has reported that this is the correct patient and has obtained consent from the patient/surrogate to perform this telemedicine evaluation(including obtaining history, performing examination and reviewing data provided by the patient an/or originating site of care provider) I have introduced myself to the patient, provided my credentials, disclosed my location, and determined that, based on review of the patient's chart and discussion with the patient's primary team, telemedicine via a HIPAA compliant, real-time, [id number] two-way, interactive audio and video platform is an appropriate and effective means of providing the service. The patient/surrogate has been notified that other healthcare professionals including technical person may be involved in this A/V evaluation. All laws concerning confidentiality and patient access to medical records and copies of medical records apply to telemedicine. The patient/surrogate has received the [facility]'s [facility] Notice of Privacy Practices. Lauri Omer MD documented in this encounter Nursing Notes * Niki Hoffmann RN - 08/23/2025 6:24 AM EDT Problem: Adult Inpatient Plan of Care Goal: Plan of Care Review Outcome: Progressing Goal: Patient-Specific Goal (Individualized) Outcome: Progressing Goal: Absence of Hospital-Acquired Illness or Injury Outcome: Progressing Intervention: Identify and Manage Fall Risk Recent Flowsheet Documentation Taken 08/23/2025 0600 by Niki Hoffmann RN Safety Promotion/Fall Prevention: activity supervised assistive device/personal items within reach clutter free environment maintained fall prevention program maintained lighting adjusted nonskid shoes/slippers when out of bed room organization consistent safety round/check completed Taken 08/23/2025 0400 by Niki Hoffmann RN Safety Promotion/Fall Prevention: activity supervised assistive device/personal items within reach clutter free environment maintained fall prevention program maintained lighting adjusted nonskid shoes/slippers when out of bed room organization consistent safety round/check completed Taken 08/23/2025 0200 by Niki Hoffmann RN Safety Promotion/Fall Prevention: activity supervised assistive device/personal items within reach clutter free environment maintained elopement precautions fall prevention program maintained lighting adjusted nonskid shoes/slippers when out of bed safety round/check completed room organization consistent Taken 08/23/2025 0000 by Niki Hoffmann RN Safety Promotion/Fall Prevention: activity supervised assistive device/personal items within reach clutter free environment maintained fall prevention program maintained lighting adjusted nonskid shoes/slippers when out of bed room organization consistent safety round/check completed Taken 08/22/2025 2200 by Niki Hoffmann RN Safety Promotion/Fall Prevention: activity supervised assistive device/personal items within reach clutter free environment maintained fall prevention program maintained lighting adjusted nonskid shoes/slippers when out of bed room organization consistent safety round/check completed Taken 08/22/20251999 by Niki Hoffmann RN Safety Promotion/Fall Prevention: activity supervised clutter free environment maintained assistive device/personal items within reach fall prevention program maintained lighting adjusted nonskid shoes/slippers when out of bed room organization consistent safety round/check completed Intervention: Prevent Skin Injury Recent Flowsheet Documentation Taken 08/23/2025 0600 by Niki Hoffmann RN Body Position: position changed independently supine Skin Protection: incontinence pads utilized Taken 08/23/2025 0400 by Niki Hoffmann RN Body Position: position changed independently supine Skin Protection: incontinence pads utilized Taken 08/23/2025 0200 by Niki Hoffmann RN Body Position: position changed independently supine Skin Protection: incontinence pads utilized Taken 08/23/2025 0000 by Niki Hoffmann RN Body Position: position changed independently supine Skin Protection: incontinence pads utilized Taken 08/22/2025 2200 by Niki Hoffmann RN Body Position: position changed independently supine Skin Protection: incontinence pads utilized Taken 08/22/20251999 by Niki Hoffmann RN Body Position: position changed independently sitting up in bed Skin Protection: incontinence pads utilized Intervention: Prevent and Manage VTE (Venous Thromboembolism) Risk Recent Flowsheet Documentation Taken 08/22/20251999 by Niki Hoffmann RN VTE Prevention/Management: (see mar) bilateral SCDs (sequential compression devices) off Intervention: Prevent Infection Recent Flowsheet Documentation Taken 08/23/2025 0600 by Niki Hoffmann RN Infection Prevention: cohorting utilized environmental surveillance performed equipment surfaces disinfected hand hygiene promoted rest/sleep promoted Taken 08/23/2025 0400 by Niki Hoffmann RN Infection Prevention: cohorting utilized environmental surveillance performed equipment surfaces disinfected hand hygiene promoted rest/sleep promoted Taken 08/23/2025 0200 by Niki Hoffmann RN Infection Prevention: cohorting utilized environmental surveillance performed equipment surfaces disinfected hand hygiene promoted rest/sleep promoted Taken 08/23/2025 0000 by Niki Hoffmann RN Infection Prevention: cohorting utilized equipment surfaces disinfected environmental surveillance performed hand hygiene promoted rest/sleep promoted Taken 08/22/2025 2200 by Niki Hoffmann RN Infection Prevention: cohorting utilized equipment surfaces disinfected environmental surveillance performed hand hygiene promoted rest/sleep promoted Taken 08/22/2025 2000 by Niki Hoffmann RN Infection Prevention: cohorting utilized environmental surveillance performed equipment surfaces disinfected hand hygiene promoted rest/sleep promoted Goal: Optimal Comfort and Wellbeing Outcome: Progressing Intervention: Provide Person-Centered Care Recent Flowsheet Documentation Taken 08/22/20251999 by Niki Hoffmann RN Trust Relationship/Rapport: care explained choices provided Goal: Readiness for Transition of Care Outcome: Progressing Goal Outcome Evaluation: Pt remains AOX4. NIH: 0. RA. NSR. Plan of care ongoing. * Valerie Eddy RN - 08/22/2025 6:39 PM EDT Problem: Adult Inpatient Plan of Care Goal: Plan of Care Review Outcome: Progressing Goal: Patient-Specific Goal (Individualized) Outcome: Progressing Goal: Absence of Hospital-Acquired Illness or Injury Outcome: Progressing Intervention: Identify and Manage Fall Risk Recent Flowsheet Documentation Taken 08/22/2025 1800 by Valerie Eddy RN Safety Promotion/Fall Prevention: activity supervised assistive device/personal items within reach clutter free environment maintained fall prevention program maintained nonskid shoes/slippers when out of bed safety round/check completed Taken 08/22/2025 1600 by Valerie Eddy RN Safety Promotion/Fall Prevention: activity supervised assistive device/personal items within reach clutter free environment maintained fall prevention program maintained nonskid shoes/slippers when out of bed safety round/check completed Taken 08/22/2025 1400 by Valerie Eddy RN Safety Promotion/Fall Prevention: activity supervised assistive device/personal items within reach clutter free environment maintained fall prevention program maintained nonskid shoes/slippers when out of bed safety round/check completed Taken 08/22/2025 1200 by Valerie Eddy RN Safety Promotion/Fall Prevention: activity supervised assistive device/personal items within reach clutter free environment maintained fall prevention program maintained nonskid shoes/slippers when out of bed safety round/check completed Taken 08/22/2025 1000 by Valerie Eddy RN Safety Promotion/Fall Prevention: activity supervised assistive device/personal items within reach clutter free environment maintained fall prevention program maintained nonskid shoes/slippers when out of bed safety round/check completed Taken 08/22/2025 0800 by Valerie Eddy RN Safety Promotion/Fall Prevention: activity supervised assistive device/personal items within reach clutter free environment maintained fall prevention program maintained nonskid shoes/slippers when out of bed safety round/check completed Intervention: Prevent Skin Injury Recent Flowsheet Documentation Taken 08/22/2025 1800 by Valerie Eddy RN Body Position: position changed independently Taken 08/22/2025 1400 by Valerie Eddy RN Body Position: position changed independently Taken 08/22/2025 1200 by Valerie Eddy RN Body Position: position changed independently Taken 08/22/2025 1000 by Valerie Eddy RN Body Position: position changed independently Taken 08/22/2025 0800 by Valerie Eddy RN Body Position: position changed independently Skin Protection: incontinence pads utilized Intervention: Prevent Infection Recent Flowsheet Documentation Taken 08/22/2025 1800 by Valerie Eddy RN Infection Prevention: environmental surveillance performed equipment surfaces disinfected hand hygiene promoted personal protective equipment utilized rest/sleep promoted single patient room provided visitors restricted/screened Taken 08/22/2025 1600 by Valerie Eddy RN Infection Prevention: environmental surveillance performed equipment surfaces disinfected hand hygiene promoted personal protective equipment utilized rest/sleep promoted single patient room provided visitors restricted/screened Taken 08/22/2025 1400 by Valerie Eddy RN Infection Prevention: environmental surveillance performed equipment surfaces disinfected hand hygiene promoted personal protective equipment utilized rest/sleep promoted single patient room provided visitors restricted/screened Taken 08/22/2025 1200 by Valerie Eddy RN Infection Prevention: environmental surveillance performed equipment surfaces disinfected hand hygiene promoted personal protective equipment utilized rest/sleep promoted single patient room provided visitors restricted/screened Taken 08/22/2025 1000 by Valerie Eddy RN Infection Prevention: environmental surveillance performed equipment surfaces disinfected hand hygiene promoted personal protective equipment utilized rest/sleep promoted single patient room provided visitors restricted/screened Taken 08/22/2025 0800 by Valerie Eddy RN Infection Prevention: environmental surveillance performed equipment surfaces disinfected hand hygiene promoted personal protective equipment utilized rest/sleep promoted single patient room provided visitors restricted/screened Goal: Optimal Comfort and Wellbeing Outcome: Progressing Intervention: Provide Person-Centered Care Recent Flowsheet Documentation Taken 08/22/2025 0800 by Valerie Eddy RN Trust Relationship/Rapport: care explained choices provided emotional support provided empathic listening provided questions answered reassurance provided thoughts/feelings acknowledged questions encouraged Goal: Readiness for Transition of Care Outcome: Progressing Problem: Pain Acute Goal: Optimal Pain Control and Function Outcome: Progressing Intervention: Prevent or Manage Pain Recent Flowsheet Documentation Taken 08/22/2025 1800 by Valerie Eddy RN Medication Review/Management: medications reviewed Taken 08/22/2025 1600 by Valerie Eddy RN Medication Review/Management: medications reviewed Taken 08/22/2025 1400 by Valerie Eddy RN Medication Review/Management: medications reviewed Taken 08/22/2025 1200 by Valerie Eddy RN Medication Review/Management: medications reviewed Taken 08/22/2025 1000 by Valerie Eddy RN Medication Review/Management: medications reviewed Taken 08/22/2025 0800 by Valerie Eddy RN Medication Review/Management: medications reviewed * Sherin Sheriff PT - 08/22/2025 2:10 PM EDT Problem: Adult Inpatient Plan of Care Goal: Plan of Care Review Recent Flowsheet Documentation Taken 08/22/2025 1446 by Sherin Sheriff PT Progress: improving Outcome Evaluation: Patient presents at baseline mobility, ambulating on reyes independently withoutc/o symptoms or LOB. No further skilled PT recommended Plan of Care Reviewed With: patient Goal Outcome Evaluation: Plan of Care Reviewed With: patient Progress: improving Outcome Evaluation: Patient presents at baseline mobility, ambulating on reyes independently withoutc/o symptoms or LOB. No further skilled PT recommended Anticipated Discharge Disposition (PT): home, home with assist * Katrina Christian MS CCC-WATER PUMP OPERATOR - 08/22/2025 9:20 AM EDT Goal Outcome Evaluation: Plan of Care Reviewed With: patient, family Progress: (eval; see note for more information) Anticipated Discharge Disposition (WATER PUMP OPERATOR): No further WATER PUMP OPERATOR services warranted, other (see comments) (please consider re-ordering if pt has a change in status) WATER PUMP OPERATOR Diagnosis: functional speech/language skills, functional cognitive- linguistic skills (08/22/25 0920) * Jyoti Akers OT - 08/22/2025 8:50 AM EDT Goal Outcome Evaluation: Plan of Care Reviewed With: patient, spouse Progress: improving Outcome Evaluation: Pt. presents at baseline with ADLs and functional mobility. No further skilled OT services warranted at this time. Recommend home with family at discharge. Anticipated Discharge Disposition (OT): home * Alice Arriola RN - 08/22/2025 6:34 AM EDT Problem: Adult Inpatient Plan of Care Goal: Plan of Care Review Outcome: Not Progressing Flowsheets (Taken 08/22/2025 0634) Progress: no change Plan of Care Reviewed With: patient Goal: Patient-Specific Goal (Individualized) Outcome: Not Progressing Goal: Absence of Hospital-Acquired Illness or Injury Outcome: Not Progressing Intervention: Identify and Manage Fall Risk Recent Flowsheet Documentation Taken 08/22/2025 0400 by Alice Arriola RN Safety Promotion/Fall Prevention: activity supervised assistive device/personal items within reach clutter free environment maintained fall prevention program maintained room organization consistent safety round/check completed Taken 08/22/2025 0200 by Alice Arriola RN Safety Promotion/Fall Prevention: activity supervised assistive device/personal items within reach clutter free environment maintained fall prevention program maintained nonskid shoes/slippers when out of bed room organization consistent safety round/check completed Taken 08/22/2025 by Alice Arriola RN Safety Promotion/Fall Prevention: activity supervised assistive device/personal items within reach clutter free environment maintained fall prevention program maintained nonskid shoes/slippers when out of bed room organization consistent safety round/check completed Taken 08/21/20252199 by Alice Arriola RN Safety Promotion/Fall Prevention: activity supervised assistive device/personal items within reach clutter free environment maintained fall prevention program maintained nonskid shoes/slippers when out of bed room organization consistent safety round/check completed Taken 08/21/20252019 by Alice Arriola RN Safety Promotion/Fall Prevention: activity supervised assistive device/personal items within reach clutter free environment maintained fall prevention program maintained nonskid shoes/slippers when out of bed room organization consistent safety round/check completed Intervention: Prevent Skin Injury Recent Flowsheet Documentation Taken 08/22/2025 040 by Alice Arriola RN Body Position: position changed independently Skin Protection: incontinence pads utilized Taken 08/22/2025199 by Alice Arriola RN Body Position: position changed independently sitting up in bed Skin Protection: incontinence pads utilized Taken 08/22/2025 by Alice Arriola RN Body Position: position changed independently Skin Protection: incontinence pads utilized Taken 08/21/20252199 by Alice Arriola RN Body Position: position changed independently Skin Protection: incontinence pads utilized Taken 08/21/20252019 by Alice Arriola RN Body Position: position changed independently Skin Protection: incontinence pads utilized Intervention: Prevent and Manage VTE (Venous Thromboembolism) Risk Recent Flowsheet Documentation Taken 08/22/2025 by Alice Arriola RN VTE Prevention/Management: (See MAR) bilateral SCDs (sequential compression devices) off Taken 08/21/20252019 by Alice Arriola RN VTE Prevention/Management: (See MAR) bilateral SCDs (sequential compression devices) off Intervention: Prevent Infection Recent Flowsheet Documentation Taken 08/22/2025 0400 by Alice Arriola RN Infection Prevention: environmental surveillance performed rest/sleep promoted Taken 08/22/2025199 by Alice Arriola RN Infection Prevention: rest/sleep promoted environmental surveillance performed Taken 08/22/2025 0000 by Alice Arriola RN Infection Prevention: rest/sleep promoted environmental surveillance performed Taken 08/21/2025 2200 by Alice Arriola RN Infection Prevention: rest/sleep promoted environmental surveillance performed Taken 08/21/20252019 by Alice Arriola RN Infection Prevention: rest/sleep promoted environmental surveillance performed Goal: Optimal Comfort and Wellbeing Outcome: Not Progressing Intervention: Provide Person-Centered Care Recent Flowsheet Documentation Taken 08/21/20252019 by Alice Arriola RN Trust Relationship/Rapport: care explained questions answered thoughts/feelings acknowledged Goal: Readiness for Transition of Care Outcome: Not Progressing Intervention: Mutually Develop Transition Plan Recent Flowsheet Documentation Taken 08/21/20252022 by Alice Arriola RN Equipment Currently Used at Home: none Transportation Anticipated: family or friend will provide Transportation Concerns: none Patient/Family Anticipated Services at Transition: none Patient/Family Anticipates Transition to: home with family Goal Outcome Evaluation: Plan of Care Reviewed With: patient Progress: no change documented in this encounter ED Notes * Alaina Bullard RN - 08/21/2025 7:35 PM EDT EMS at bedside to transport pt to [place] [id number] documented in this encounter Miscellaneous Notes * [facility] Provider Note - Juju Vasques PA-C - 08/23/2025 12:36 PM EDT Subjective History of Present Illness Patient is a 60-year-old female presents to ED with complaints of altered mental status. Patient had a recent TIA in July and was started on DA Plavix however discontinued Plavix herself withoutconsulting her physician due to side effects. Patient presented to ED today with complaints of left-sided facial droop and dysarthria that lasted approximately 10 to 15 minutes and resolved without any intervention. Patient is alert and oriented at time of initial exam with no obvious focal deficits. She recalls she denies any recent illness, chest pain, shortness of breath, abdominal pain, nausea, vomiting, change in vision or hearing, lightheadedness, syncope. Patient also denying any unilateral bilateral weakness. Review of Systems Neurological: Positive for facial asymmetry and speech difficulty. All other systems reviewed and are negative. Past Medical History: Diagnosis Date Diabetic retinopathy associated with type 2 diabetes mellitus Essential hypertension Hyperlipidemia Hypertension Otitis media 04/20/2024 Type 2 diabetes mellitus Vitamin D deficiency Allergies[1] Past Surgical History: Procedure Laterality Date BREAST AUGMENTATION CHOLECYSTECTOMY TUBAL ABDOMINAL LIGATION Family History Problem Relation Age of Onset Diabetes Mother Coronary artery disease Mother Coronary artery disease Father Hypertension Father Diabetes Father Heart attack Father Cancer Maternal Grandmother Heart attack Maternal Grandmother Social History[2] Objective Physical Exam Constitutional: General: She is not in acute distress. Appearance: Normal appearance. She is not ill-appearing. HENT: Head: Normocephalic and atraumatic. Mouth/Throat: Mouth: Mucous membranes are moist. Pharynx: Oropharynx is clear. Cardiovascular: Rate and Rhythm: Normal rate and regular rhythm. Pulmonary: Effort: Pulmonary effort is normal. Breath sounds: Normal breath sounds. No wheezing. Abdominal: General: Abdomen is flat. Palpations: Abdomen is soft. Tenderness: There is no abdominal tenderness. There is no guarding. Musculoskeletal: Right lower leg: No edema. Left lower leg: No edema. Skin: General: Skin is warm and dry. Capillary Refill: Capillary refill takes less than 2 seconds. Neurological: General: No focal deficit present. Mental Status: She is alert and oriented to person, place, and time. GCS: GCS eye subscore is 4. GCS verbal subscore is 5. GCS motor subscore is 6. Cranial Nerves: No cranial nerve deficit or facial asymmetry. Motor: No weakness or tremor. Coordination: Romberg sign negative. Coordination normal. Sttmtk-Ilbf-Fkclvy Test and Heel to Vital Test normal. Gait: Gait normal. Psychiatric: Mood and Affect: Mood normal. Behavior: Behavior normal. MRI Angiogram Head With & Without Contrast Result Date: 08/23/2025 MRI ANGIOGRAM NECK W CONTRAST, MRI ANGIOGRAM HEAD W WO CONTRAST Date of Exam: 08/23/2025 8:25 AM EDTIndication: icad / flow SEND TO [employer]. Comparison: 08/21/2025. Technique: Routine 3-D spfh-lk-tdlfvg gradient echo imaging was obtained of the head and neck after the uneventful administration ofVueway. Findings: Patent great vessel origins. The subclavian arteries appear patent. The cervical right ICA is patent with 0% narrowing present by NASCET criteria. The left cervical ICA is attenuated along its entire course beyond a patent origin. The right cervical vertebral artery and left cervical vertebral artery are patent. Intracranially, the right ICA is patent. There is redemonstrated att enuation of the left petrous and cavernous segment ICA which appears likely occluded, with reconstitution of the communicating segment near the P-comm origin and with normal filling of the left anterior and middle cerebral arteries. There is also unchanged focal moderate to severe narrowing of the r ight ophthalmic and communicating segment ICA. The right MCA is patent. The vertebrobasilar system is patent. The posterior cerebral arteries appear normal in course and caliber. Impression: Redemonstrated long segment occlusion of the left intracranial ICA, with reconstitutionof the communicating segment near the P-comm origin. There is also unchanged focal moderate to severe narrowing of the right ophthalmic and communicating segment ICA. No new high-grade stenosis, occlusion or aneurysm. Electronically Signed: Saurabh Prieto MD 08/23/2025 10:15 AM EDT Workstation ID: [id number] MRI Angiogram Neck With Contrast Result Date: 08/23/2025 MRI ANGIOGRAM NECK W CONTRAST, MRI ANGIOGRAM HEAD W WO CONTRAST Date of Exam: 08/23/2025 8:25 AM EDTIndication: icad / flow SEND TO [employer]. Comparison: 08/21/2025. Technique: Routine 3-D njqu-jv-prcivf gradient echo imaging was obtained of the head and neck after the uneventful administration ofVueway. Findings: Patent great vessel origins. The subclavian arteries appear patent. The cervical right ICA is patent with 0% narrowing present by NASCET criteria. The left cervical ICA is attenuated along its entire course beyond a patent origin. The right cervical vertebral artery and left cervical vertebral artery are patent. Intracranially, the right ICA is patent. There is redemonstrated att enuation of the left petrous and cavernous segment ICA which appears likely occluded, with reconstitution of the communicating segment near the P-comm origin and with normal filling of the left anterior and middle cerebral arteries. There is also unchanged focal moderate to severe narrowing of the r ight ophthalmic and communicating segment ICA. The right MCA is patent. The vertebrobasilar system is patent. The posterior cerebral arteries appear normal in course and caliber. Impression: Redemonstrated long segment occlusion of the left intracranial ICA, with reconstitutionof the communicating segment near the P-comm origin. There is also unchanged focal moderate to severe narrowing of the right ophthalmic and communicating segment ICA. No new high-grade stenosis, occlusion or aneurysm. Electronically Signed: Saurabh Prieto MD 08/23/2025 10:15 AM EDT Workstation ID: [id number] MRI Brain Without Contrast Result Date: 08/22/2025 MRI BRAIN WO CONTRAST Date of Exam: 08/21/2025 11:35 PM EDT Indication: Stroke, follow up Transient L facial droop, dysarthria and gait disturbance -chronic right ICA stenosis and left ICA occlusion. Comparison: MRI of the brain 07/26/2025; CT head 08/21/2025 Technique: Routine multiplanar/multisequence sequence images of the brain were obtained without contrast administration. Findings: There are multiple small patchy areas of pathologic restricted diffusion within the subcortical white matter and periventricular white matters of the left frontal and parietal lobes. There are 2 new more increased abnormal restricted diffusion seen adjacent to the anterior horn of the left lateral ventricle chest both measuring approximately 6 mm in size. There is no evidence of acute hemorrhage. There are no abnormal extra-axial fluid collections. Again seen is absence of the flow-void of the left petrous, cavernous and supraclinoid portions of the left internal carotid artery. The flow void of the leftmiddle cerebral artery appears to be patent. Please correlate with recent CT angiogram of the head. Impression: There are multiple small patchy areas of pathologic restricted diffusion in the left frontal and parietal lobes. There are 2 new areas of restricted diffusion seen adjacent to the anterior horn of the left lateral ventricle. There is no evidence of acute hemorrhage. Electronically Signed: Ck Arredondo MD 08/22/2025 4:24 AM EDT Workstation ID: [id number] CT Angiogram Head w AI Analysis of LVO Result Date: 08/21/2025 CT ANGIOGRAM HEAD W AI ANALYSIS OF LVO, CT CEREBRAL PERFUSION W WO CONTRAST, CT ANGIOGRAM NECK Dateof Exam: 08/21/2025 4:29 PM EDT Indication: Neuro Deficit, acute, Stroke suspected Neuro deficit, acute stroke suspected. Comparison: Head CT from today, CTA of the head and neck dated 07/26/2025 Technique: CTA of the head was performed after the uneventful intravenous administration of iodinated contrast. Reconstructed coronal and sagittal images were also obtained. In addition, a 3-D volume rendered image was created for interpretation. Automated exposure control and iterative reconstruction methods were used. FINDINGS: Vascular Findings: Atherosclerotic plaque is seen within the right carotid bifurcation and right carotid siphon. Probable moderate to severe stenosis within the right supraclinoid ICA again noted. The right common carotid, remainder of the right ICA, middle cerebral, anterior cerebral, vertebral, and posterior cerebral arteries are patent without abrupt cut off or aneurysmal dilation. Apparent occlusion of the left petrous, cavernous, and supraclinoid ICA with reconstitution of the left ICA terminus. Occlusion of the left cavernous and supraclinoid ICA may be new since 07/26/2025, or these segments may be patent but poorly opacified due to technical factors/contrastbolus timing. Left distal cervical ICA is somewhat diminutive . Left common carotid artery appears unremarkable. Left middle cerebral, anterior cerebral, vertebral, and posterior cerebral arteries are patent without abrupt cut off or aneurysmal dilation. Basilar artery appears patent and appears unremarkable. Non-vascular Findings: For description of nonvascular intracranial findings, please refer to the noncontrast head CT performed the same date. No acute abnormality is identified within the visualized soft tissue or bony structures of the neck. The visualized lung apices are clear. CT Perfusion: CBF (<30%) volume: 0 mL Tmax (>6.0s) volume: 27 mL Mismatch volume: 27 mL Mismatch ratio: Infinite 1.Apparent occlusion of the left petrous, cavernous, and supraclinoid ICA with reconstitution of the left ICA terminus. Left middle and anterior cerebral arteries appear patent. Occlusion of the leftpetrous and cavernous ICA may be new since 07/26/2025, or these segments may be patent but poorly opacified due to technical factors/contrast bolus timing. 2.Otherwise, no intracranial large vessel occlusion is identified. 3.Probable moderate to severe stenosis within the right supraclinoid ICA. 4.CT perfusion study demonstrates patchy regions of prolonged Tmax greater than 6 seconds within the left frontoparietal region (27 mL). There is a larger, more confluent region of minimally prolonged Tmax greater than 4 seconds within the left MCA territory (approximately 169 mL). Findings may be related to altered hemodynamics related to known left ICA occlusion. At risk ischemic tissue within the left MCA territory is not excluded. No territorial core infarct is demonstrated. Of note, similar findings were present on the CT perfusion study from 07/26/2025. Please correlate with findings on MRI.The above findings were discussed with Juju Vasques and Michela López, stroke rn urgent care, via telephone on 08/21/2025 5:33 PM EDT. Electronically Signed: Ashvin Stockton MD 08/21/2025 5:41 PM EDT Workstation ID: [id number] CT Angiogram Neck Result Date: 08/21/2025 CT ANGIOGRAM HEAD W AI ANALYSIS OF LVO, CT CEREBRAL PERFUSION W WO CONTRAST, CT ANGIOGRAM NECK Dateof Exam: 08/21/2025 4:29 PM EDT Indication: Neuro Deficit, acute, Stroke suspected Neuro deficit, acute stroke suspected. Comparison: Head CT from today, CTA of the head and neck dated 07/26/2025 Technique: CTA of the head was performed after the uneventful intravenous administration of iodinated contrast. Reconstructed coronal and sagittal images were also obtained. In addition, a 3-D volume rendered image was created for interpretation. Automated exposure control and iterative reconstruction methods were used. FINDINGS: Vascular Findings: Atherosclerotic plaque is seen within the right carotid bifurcation and right carotid siphon. Probable moderate to severe stenosis within the right supraclinoid ICA again noted. The right common carotid, remainder of the right ICA, middle cerebral, anterior cerebral, vertebral, and posterior cerebral arteries are patent without abrupt cut off or aneurysmal dilation. Apparent occlusion of the left petrous, cavernous, and supraclinoid ICA with reconstitution of the left ICA terminus. Occlusion of the left cavernous and supraclinoid ICA may be new since 07/26/2025, or these segments may be patent but poorly opacified due to technical factors/contrastbolus timing. Left distal cervical ICA is somewhat diminutive . Left common carotid artery appears unremarkable. Left middle cerebral, anterior cerebral, vertebral, and posterior cerebral arteries are patent without abrupt cut off or aneurysmal dilation. Basilar artery appears patent and appears unremarkable. Non-vascular Findings: For description of nonvascular intracranial findings, please refer to the noncontrast head CT performed the same date. No acute abnormality is identified within the visualized soft tissue or bony structures of the neck. The visualized lung apices are clear. CT Perfusion: CBF (<30%) volume: 0 mL Tmax (>6.0s) volume: 27 mL Mismatch volume: 27 mL Mismatch ratio: Infinite 1.Apparent occlusion of the left petrous, cavernous, and supraclinoid ICA with reconstitution of the left ICA terminus. Left middle and anterior cerebral arteries appear patent. Occlusion of the leftpetrous and cavernous ICA may be new since 07/26/2025, or these segments may be patent but poorly opacified due to technical factors/contrast bolus timing. 2.Otherwise, no intracranial large vessel occlusion is identified. 3.Probable moderate to severe stenosis within the right supraclinoid ICA. 4.CT perfusion study demonstrates patchy regions of prolonged Tmax greater than 6 seconds within the left frontoparietal region (27 mL). There is a larger, more confluent region of minimally prolonged Tmax greater than 4 seconds within the left MCA territory (approximately 169 mL). Findings may be related to altered hemodynamics related to known left ICA occlusion. At risk ischemic tissue within the left MCA territory is not excluded. No territorial core infarct is demonstrated. Of note, similar findings were present on the CT perfusion study from 07/26/2025. Please correlate with findings on MRI.The above findings were discussed with Juju Vasques and Michela López, stroke rn urgent care, via telephone on 08/21/2025 5:33 PM EDT. Electronically Signed: Ashvin Stockton MD 08/21/2025 5:41 PM EDT Workstation ID: [id number] CT CEREBRAL PERFUSION WITH & WITHOUT CONTRAST Result Date: 08/21/2025 CT ANGIOGRAM HEAD W AI ANALYSIS OF LVO, CT CEREBRAL PERFUSION W WO CONTRAST, CT ANGIOGRAM NECK Dateof Exam: 08/21/2025 4:29 PM EDT Indication: Neuro Deficit, acute, Stroke suspected Neuro deficit, acute stroke suspected. Comparison: Head CT from today, CTA of the head and neck dated 07/26/2025 Technique: CTA of the head was performed after the uneventful intravenous administration of iodinated contrast. Reconstructed coronal and sagittal images were also obtained. In addition, a 3-D volume rendered image was created for interpretation. Automated exposure control and iterative reconstruction methods were used. FINDINGS: Vascular Findings: Atherosclerotic plaque is seen within the right carotid bifurcation and right carotid siphon. Probable moderate to severe stenosis within the right supraclinoid ICA again noted. The right common carotid, remainder of the right ICA, middle cerebral, anterior cerebral, vertebral, and posterior cerebral arteries are patent without abrupt cut off or aneurysmal dilation. Apparent occlusion of the left petrous, cavernous, and supraclinoid ICA with reconstitution of the left ICA terminus. Occlusion of the left cavernous and supraclinoid ICA may be new since 07/26/2025, or these segments may be patent but poorly opacified due to technical factors/contrastbolus timing. Left distal cervical ICA is somewhat diminutive . Left common carotid artery appears unremarkable. Left middle cerebral, anterior cerebral, vertebral, and posterior cerebral arteries are patent without abrupt cut off or aneurysmal dilation. Basilar artery appears patent and appears unremarkable. Non-vascular Findings: For description of nonvascular intracranial findings, please refer to the noncontrast head CT performed the same date. No acute abnormality is identified within the visualized soft tissue or bony structures of the neck. The visualized lung apices are clear. CT Perfusion: CBF (<30%) volume: 0 mL Tmax (>6.0s) volume: 27 mL Mismatch volume: 27 mL Mismatch ratio: Infinite 1.Apparent occlusion of the left petrous, cavernous, and supraclinoid ICA with reconstitution of the left ICA terminus. Left middle and anterior cerebral arteries appear patent. Occlusion of the leftpetrous and cavernous ICA may be new since 07/26/2025, or these segments may be patent but poorly opacified due to technical factors/contrast bolus timing. 2.Otherwise, no intracranial large vessel occlusion is identified. 3.Probable moderate to severe stenosis within the right supraclinoid ICA. 4.CT perfusion study demonstrates patchy regions of prolonged Tmax greater than 6 seconds within the left frontoparietal region (27 mL). There is a larger, more confluent region of minimally prolonged Tmax greater than 4 seconds within the left MCA territory (approximately 169 mL). Findings may be related to altered hemodynamics related to known left ICA occlusion. At risk ischemic tissue within the left MCA territory is not excluded. No territorial core infarct is demonstrated. Of note, similar findings were present on the CT perfusion study from 07/26/2025. Please correlate with findings on MRI.The above findings were discussed with Juju Vasques and Michela López, stroke rn urgent care, via telephone on 08/21/2025 5:33 PM EDT. Electronically Signed: Ashvin Stockton MD 08/21/2025 5:41 PM EDT Workstation ID: [id number] XR Chest 1 View Result Date: 08/21/2025 XR CHEST 1 VW Date of Exam: 08/21/2025 5:12 PM EDT Indication: Acute Stroke Protocol (onset < 12 hrs). Comparison: None available. Findings: The cardiomediastinal silhouette is within normal limits. Pulmonary vascularity appears normal. There is no focal airspace consolidation, pleural effusion, or pneumothorax. There are degenerative changes of the thoracic spine. Impression: No acute cardiopulmonary abnormality. Electronically Signed: Brock Durham MD 08/21/2025 5:40 PM EDT Workstation ID: [id number] CT Head Without Contrast Stroke Protocol Result Date: 08/21/2025 CT HEAD WO CONTRAST STROKE PROTOCOL Date of Exam: 08/21/2025 4:25 PM EDT Indication: Neuro deficit, acute, stroke suspected Neuro Deficit, acute, Stroke suspected. Comparison: Brain MRI 07/26/2025. Technique: Axial CT images were obtained of the head without contrast administration. Reconstructed coronal images were also obtained. Automated exposure control and iterative construction methods were used. Scan Time: 4:29 p.m. Results discussed with Joana Matute at 4:38 p.m. Findings: No evidence of acute intracranial hemorrhage or mass effect. No extra-axial collection. The vasques white matterdifferentiation is preserved. Mild white matter changes in the left hemisphere corresponding to findings on prior brain MRI. Ventricles and sulci are symmetric. The mastoid air cells and paranasal sinuses are well aerated. Globes and extraocular muscles are unremarkable. No acute osseous abnormality. Impression: No acute intracranial findings. Electronically Signed: Harry Bradford MD 08/21/2025 4:44 PM EDT Workstation ID: [id number] Procedures Patient presented to ED with complaints of facial droop and aphasia that lasted approximately 10 to15 minutes prior to arrival have completely resolved at time of initial exam. No obvious focal deficits noted on physical exam. Patient cooperative and pleasant, nontoxic-appearing with no recent illness. Imaging thankfully did not demonstrate any acute abnormalities. Patient was evaluated by teleneuro who recommended admission for further treatment and observation. Patient was admitted to [facility] for further treatment and management with neurology consultation after DAPT loading. ED Course ED Course as of 08/27/25 0348 ThuAug 21, 2025 1750 An EKG was ordered, reviewed, and interpreted by myself: Rate: 93. Rhythm: Normal sinus rhythm QTc: 442 ST elevation: n. STEMI: N [ANGIE] ED Course User Index [ANGIE] Ariel Washington MD Medical Decision Making Problems Addressed: TIA (transient ischemic attack): complicated acute illness or injury Amount and/or Complexity of Data Reviewed Labs: ordered. Radiology: ordered. ECG/medicine tests: ordered. Risk OTC drugs. Prescription drug management. Decision regarding hospitalization. Final diagnoses: TIA (transient ischemic attack) ED Disposition ED Disposition ED Disposition Decision to Admit Condition -- Comment Level of Care: Telemetry [5] Accepting Provider:: CLOTILDE GARCIA [[id number]] Patient Class: Inpatient [101] Araceli Doyle MD [address] [facility] [address] [facility] [address] Follow up in 1 week(s) Follow up appointment scheduled 09/06/25 @ 9:30 AM. [facility] [address] [facility] [address] [place] [id number] Follow up in 1 month(s) Follow up appointment scheduled for 09/27/25 @ 10:00 AM. Maulik Yun MD [address] [facility] [address] [place] [address] Follow up in 2 week(s) Follow up appointment scheduled for 09/07/25 @ 10:30 AM. Medication List Changed carvedilol 12.5 MG tablet Commonly known as: COREG Take 1 tablet by mouth 2 (Two) Times a Day With Meals for 30 days. What changed: medication strength how much to take when to take this Stop Mounjaro 7.5 MG/0.5ML solution auto-injector Generic drug: Tirzepatide Where to Get Your Medications These medications were sent to [facility] [place] - [address] [phone] [facility] [phone] [facility] [address] [address] carvedilol 12.5 MG tablet [1] Allergies Allergen Reactions Codeine GI Intolerance Vomiting Sulfa Antibiotics GI Intolerance vomiting [2] Social History Socioeconomic History Marital status: Tobacco Use Smoking status: Never Passive exposure: Past Smokeless tobacco: Never Vaping Use Vaping status: Never Used Substance and Sexual Activity Alcohol use: Not Currently Drug use: Never Sexual activity: Yes Partners: Male Cosigned by Zoraida Maier DO at 08/27/2025 8:24 PM EDT Associated attestation - Zoraida Maier DO - 08/27/2025 8:24 PM EDT SHARED APC NON FACE TO FACE: I performed a substantive part of the MDM during the patient's E/M visit. I personally made or approved the documented management plan and acknowledge its risk of complications. Zoraida Maier DO 08/27/2025 20:24 EDT * Case Management/Social Work - Vandana Tena RN - 08/23/2025 8:50 AM EDT Continued Stay Note [facility] Patient Name: Brynn Cox Today's Date: 08/23/2025 Admit Date: 08/21/2025 Plan: Home Discharge Plan Row Name 08/23/25 0849 Plan Plan Home Patient/Family in Agreement with Plan yes Plan Comments Patient's plan remains home at discharge. No needs noted at this time. CM will continue to follow. Final Discharge Disposition Code 01 - home or self-care Discharge Codes No documentation. Expected Discharge Date and Time Expected Discharge Date Expected Discharge Time Aug 23, 2025 Vandana Tena, CORY * Therapy Evaluation - Sherin Sheriff PT - 08/22/2025 2:10 PM EDT Patient Name: Brynn Cox : 1965 Today's Date: 08/22/2025 Admit Date: 08/21/2025 Visit Dx: ICD-10-CM ICD-9-CM 1. 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 Essential hypertension Hyperlipidemia Hypertension Otitis media 04/20/2024 Type 2 diabetes mellitus Vitamin D deficiency Past Surgical History: Procedure Laterality Date BREAST AUGMENTATION CHOLECYSTECTOMY TUBAL ABDOMINAL LIGATION General Information Row Name 08/22/25 1442 Physical Therapy Time and Intention Document Type discharge evaluation/summary -MS Mode of Treatment physical therapy -MS Row Name 08/22/25 1442 General Information Patient Profile Reviewed yes -MS Prior Level of Function independent: -MS Row Name 08/22/25 1442 Home Main Entrance Number of Stairs, Main Entrance three -MS Row Name 08/22/25 1442 Stairs Within Home, Primary Number of Stairs, Within Home, Primary none -MS Row Name 08/22/25 1442 Cognition Orientation Status (Cognition) oriented x 4 -MS Row Name 08/22/25 1442 Safety Issues/Impairments Affecting Functional Mobility Comment, Safety Issues/Impairments (Mobility) alert, following commands -MS User Diane (r) = Recorded By, (t) = Taken By, (c) = Cosigned By Initials Name Provider Type MS Sherin Sheriff PT Physical Therapist Mobility Row Name 08/22/25 1443 Bed Mobility Bed Mobility supine-sit;sit-supine;scooting/bridging -MS Scooting/Bridging [place] (Bed Mobility) independent -MS Supine-Sit [place] (Bed Mobility) independent -MS Sit-Supine [place] (Bed Mobility) independent -MS Row Name 08/22/25 1443 Sit-Stand Transfer Sit-Stand [place] (Transfers) independent -MS Comment, (Sit-Stand Transfer) demonstrated good control -MS Row Name 08/22/25 1443 Gait/Stairs (Locomotion) [place] Level (Gait) independent -MS Distance in Feet (Gait) [address] [facility] [place] Deviations/Abnormal Patterns (Gait) base of support, wide -MS Comment, (Gait/Stairs) Demonstrated step through gait pattern with wide gait . No LOB noted or sway. NO c/o diizziness. -MS User Diane (r) = Recorded By, (t) = Taken By, (c) = Cosigned By Initials Name Provider Type MS Sherin Sheriff, PT Physical Therapist Obj/Interventions [facility] 08/22/25 [facility] Range of Motion Comprehensive General Range of Motion no range of motion deficits identified -[facility] 08/22/25 [facility] Strength Comprehensive (MMT) General Manual Muscle Testing (MMT) Assessment no strength deficits identified -MS Comment, General Manual Muscle Testing (MMT) Assessment face symetrical, L eye red from procedure. -[facility] [facility] 08/22/25 [facility] Motor Skills Motor Skills coordination -MS Coordination gross motor deficit;lower extremity;WFL -[facility] 08/22/25 [facility] Balance Balance Assessment standing dynamic balance -MS Dynamic Standing Balance independent -MS User Diane (r) = Recorded By, (t) = Taken By, (c) = Cosigned By Initials Name Provider Type MS Sherin Sheriff, PT Physical Therapist Goals/Plan No documentation. Clinical Impression [facility] 08/22/25 [facility] Pain Pretreatment Pain Rating 0/10 - no pain -MS Posttreatment Pain Rating 0/10 - no pain -[facility] 08/22/25 [facility] Plan of Care Review Plan of Care Reviewed With patient -MS Progress improving -MS Outcome Evaluation Patient presents at baseline mobility, ambulating on reyes independently without c/o symptoms or LOB. No further skilled PT recommended -[facility] 08/22/25 [facility] Therapy Assessment/Plan (PT) Rehab Potential (PT) good -MS Criteria for Skilled Interventions Met (PT) yes;meets criteria -MS Therapy Frequency (PT) evaluation only -MS Predicted Duration of Therapy Intervention (PT) 2 -[facility] 08/22/25 144 Vital Signs Pre Systolic BP Rehab 154 -MS Pre Treatment Diastolic BP 91 -MS Post Systolic BP Rehab 171 -MS Post Treatment Diastolic BP 87 -MS Pretreatment Heart Rate (beats/min) 101 -MS Intratreatment Heart Rate (beats/min) 113 -MS Posttreatment Heart Rate (beats/min) 100 -[facility] 08/22/25 1446 Positioning and Restraints Pre-Treatment Position in bed -MS Post Treatment Position bed -MS In Bed supine;exit alarm on;with family/caregiver -MS User Diane (r) = Recorded By, (t) = Taken By, (c) = Cosigned By Initials Name Provider Type MS Sherin Sheriff PT Physical Therapist Outcome Measures Row Name 08/22/25 1447 08/22/25 0800 How much help from another person do you currently need... Turning from your back to your side while in flat bed without using bedrails? 4 -MS 4 -AF Moving from lying on back to sitting on the side of a flat bed without bedrails? 4 -MS 4 -AF Moving to and from a bed to a chair (including a wheelchair)? 4 -MS 4 -AF Standing up from a chair using your arms (e.g., wheelchair, bedside chair)? 4 - MS 4 -AF Climbing 3-5 steps with a railing? 4 -MS 4 -AF To walk in hospital room? 4 -MS 4 -AF AM-PAC 6 Clicks Score (PT) 24 -MS 24 -AF Highest Level of Mobility Goal Walk 250 Feet or More - 8 -MS Walk 250 Feet or More - 8 -AF Row Name 08/22/25 1447 Modified Oxbow Scale Pre-Stroke Modified Oxbow Scale 0 - No Symptoms at all. 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 Discussed Target heart rate for her age Family Home Velázquez TB, D,Deandre, COLLETTE,JOSEPH by MS at 08/22/2025 1448 Comment: reviewed benefits of walking for exercise. Discussed Target heart rate for her age Point: Home exercise program (Done) Learning Progress Summary Patient Adaler, E,TB,D,H, DU,VU by MS at 08/22/20251447 Comment: reviewed benefits of walking for exercise. Discussed Target heart rate for her age Family Adaler, E,TB,D,H, DU,VU by MS at 08/22/2025 144 Comment: reviewed benefits of walking for exercise. Discussed Target heart rate for her age Point: Body mechanics (Done) Learning Progress Summary Patient Eager, E,TB,D,H, DU,VU by MS at 08/22/2025 144 Comment: reviewed benefits of walking for exercise. Discussed Target heart rate for her age Family Eager, E,TB,D,H, DU,VU by MS at 08/22/20251447 Comment: reviewed benefits of walking for exercise. Discussed Target heart rate for her age Point: Precautions (Done) Learning Progress Summary Patient Adaler, E,TB,D,H, DU,VU by MS at 08/22/20251447 Comment: reviewed benefits of walking for exercise. Discussed Target heart rate for her age Family Eager, E,TB,D,H, DU,VU by MS at 08/22/2025 144 Comment: reviewed benefits of walking for exercise. Discussed Target heart rate for her age User Diane Initials Effective Dates Name Provider Type Discipline MS 12/19/22 - Sherin Sheriff, PT Physical Therapist PT PT Recommendation and Plan Recommended discharge disposition is based on the functional assessment performed by PT/OT/Speech therapy (as applicable) and may not reflect the medical necessity determined by your provider or services covered by an individual patient's insurance plan or patient resource. Therapy Frequency (PT): evaluation only Progress: improving Outcome Evaluation: Patient presents at baseline mobility, ambulating on reyes independently withoutc/o symptoms or LOB. No further skilled PT recommended Time Calculation: PT Evaluation Complexity History, PT Evaluation Complexity: 3 or more personal factors and/or comorbidities Examination of Body Systems (PT Eval Complexity): total of 4 or more elements Clinical Presentation (PT Evaluation Complexity): evolving Clinical Decision Making (PT Evaluation Complexity): moderate complexity Overall Complexity (PT Evaluation Complexity): moderate complexity PT Charges Row Name 08/22/25 1410 Time Calculation Start Time 1410 -SC PT Received On 08/22/25 -MS Untimed Charges PT Eval/Re-eval Minutes 47 -SC Total Minutes Untimed Charges Total Minutes 47 -SC Total Minutes 47 -SC User Diane (r) = Recorded By, (t) = Taken By, (c) = Cosigned By Initials Name Provider Type SC Sherin Sheriff, PT Physical Therapist Therapy Charges for Today Code Description Service Date Service Provider Modifiers Qty [id number] HC PT EVAL MOD COMPLEXITY 4 08/22/2025 Sherin Sheriff PT GP 1 PT G-Codes Outcome Measure Options: AM-PAC 6 Clicks Basic Mobility (PT), Modified Oxbow AM-PAC 6 Clicks Score (PT): 24 AM-PAC 6 Clicks Score (OT): 24 PT Discharge Summary Anticipated Discharge Disposition (PT): home, home with assist Sherin Sheriff PT 08/22/2025 * Case Management/Social Work - Vandana Tena RN - 08/22/2025 8:54 AM EDT Discharge Planning Assessment [facility] Patient Name: Brynn Cox Today's Date: 08/22/2025 Admit Date: 08/21/2025 Plan: Home Discharge Needs Assessment Row Name 08/22/25 0850 Living Environment People in Home spouse Current Living Arrangements home Potentially Unsafe Housing Conditions none Primary Care Provided by self Provides Primary Care For no one Family Caregiver if Needed spouse Quality of Family Relationships involved;supportive Able to Return to Prior Arrangements yes Resource/Environmental Concerns Resource/Environmental Concerns none Transportation Concerns none Transition Planning Patient/Family Anticipates Transition to home with family Patient/Family Anticipated Services at Transition correctional case manager;rehabilitation services Transportation Anticipated family or friend will provide Discharge Needs Assessment Readmission Within the Last 30 Days no previous admission in last 30 days Equipment Currently Used at Home none Concerns to be Addressed discharge planning Anticipated Changes Related to Illness none Discharge Plan Row Name 08/22/25 0851 Plan Plan Home Patient/Family in Agreement with Plan yes Plan Comments Spoke with patient in room to initiate discharge planning. [facility]. She is independnet with ADL's. She has no DME at home and is not current with home health. Her PCP is Araceli Doyle. She does not have an advanced directive. Verified that she hasSupramed Commercial. Ms. Cox has RX coverage and has her scripts filled at [facility]. Her goal is to return home at discharge. Will await therapy recommendations to determine proper discharge placement. CM will continue to follow. Final Discharge Disposition Code 01 - home or self-care Continued Care and Services - Admitted Since 08/21/2025 No active coordination exists. Expected Discharge Date and Time Expected Discharge Date Expected Discharge Time Aug 23, 2025 Demographic Summary Row Name 08/22/25 0850 General Information Admission Type inpatient Arrived From emergency department Referral Source admission list Reason for Consult discharge planning Preferred Language Maori Functional Status Row Name 08/22/25 0850 Functional Status Usual Activity Tolerance moderate Current Activity Tolerance moderate Functional Status, IADL Medications independent Meal Preparation independent Housekeeping independent Laundry independent Shopping independent Psychosocial No documentation. Abuse/Neglect No documentation. Legal No documentation. Substance Abuse No documentation. Patient Forms No documentation. Vandana Tena RN * Significant Note - Kip Caicedo PA-C - 08/21/2025 10:39 PM EDT Significant Event Note Event Summary This patient is a 60-year-old female with history that includes recent left MCA watershed subacute stroke (07/2025) with no residual deficit. Patient presented to [facility] ED earlier today for transient episode of dysarthria with mild left facial droop. Patient was evaluated by Dr. Omer via teleneurology. Initial NIH score was 0. Code stroke CT imaging was remarkable for left MCA penumbra with no core infarct, no LVO on CTA. Patient was not a candidate for IV thrombolytic therapy due to recent stroke. Patient was loaded with DAPT and transferred to [facility] for higher level of care. On arrival to [facility], NIH score remains 0 with no focal neurologic deficits appreciated on exam. Plan/Recommendations -Stroke without thrombolytic therapy order set initiated. -Continue DAPT with aspirin and Plavix -Allow for autoregulation of blood pressure overnight, SBP goal < 220 -See Dr. Omer's consult note for full neurology recommendations. Kip Caicedo PA-C [facility] Stroke Neurology documented in this encounter Plan of Treatment Upcoming Encounters Date Type Department Care Team (Late st Contact Info) Description 09/27/2025 10:00 AM EST Office Visit [facility] NEUROLOGY [address] [facility] [address] [place] [address] Charu Hernandez, PROOF INSPECTOR [address] [facility] [address] [place] [address] 11/01/2025 11:00 AM EST Office Visit [facility] UROLOGY [address] [facility] [address] [place] [address] Demi Palomares PA-C [address] [facility] [address] [place] [address] 11/20/2025 2:00 PM EST Appointment [facility] CARDIOV[facility]ULAR [facility] [address] [facility] 3rd [place] [address] 11/29/2025 9:30 AM EST Office Visit [facility] CARDIOLOGY [address] [place] [address] Alaina Hayes, PROOF INSPECTOR [address] [place], [place] [id number] 12/13/2025 1:45 PM EST Office Visit [facility] ENDOCRINOLOGY [address] [phone] Katrina Garrett MD [address] [phone] Pending Results Name Type Priority Associated Diagnoses Date /Time ECG 12 Lead ED Triage Standing Order; Acute Stroke (Onset <24 hrs) ECG STAT 10/06/202 5 5:32 PM EDT Scheduled Procedures Name Priority Associated Diagnoses Date/Ti me CV CAROTID CEREBRAL ANGIOGRA M BILATERAL History of TIA (transient ischemic attack) documented as of this encounter Procedures Procedure Name Priority Date/Time Associated Diagnosis Comments POCT GLUCOSE FINGERSTICK Routine 08/23/2025 11:36 AM EDT CBC WITH AUTO DIFFERENTIAL Routine 08/23/2025 10:43 AM EDT CBC AND DIFFERENTIAL Routine 08/23/2025 10:43 AM EDT MAGNESIUM Urgent 08/23/2025 10:43 AM EDT RENAL FUNCTION PANEL Urgent 08/23/2025 10:43 AM EDT POCT GLUCOSE FINGERSTICK Routine 08/23/2025 9:07 AM EDT MRI ANGIOGRAM NECK W CONTRAST STAT 08/23/2025 8:49 AM EDT MRI ANGIOGRAM HEAD W WO CONTRAST STAT 08/23/2025 8:47 AM EDT POCT GLUCOSE FINGERSTICK Routine 08/22/2025 7:13 PM EDT POCT GLUCOSE FINGERSTICK Routine 08/22/2025 4:43 PM EDT P2Y12 PLATELET INHIBITION Urgent 08/22/2025 4:18 PM EDT CBC (NO DIFF) Routine 08/22/2025 4:18 PM EDT MAGNESIUM Routine 08/22/2025 4:17 PM EDT BASIC METABOLIC PANEL Routine 08/22/2025 4:17 PM EDT POCT GLUCOSE FINGERSTICK Routine 08/22/2025 12:24 PM EDT POCT GLUCOSE FINGERSTICK Routine 08/22/2025 7:46 AM EDT POCT GLUCOSE FINGERSTICK Routine 08/22/2025 2:54 AM EDT POCT GLUCOSE FINGERSTICK Routine 08/22/2025 2:35 AM EDT POCT GLUCOSE FINGERSTICK Routine 08/22/2025 2:14 AM EDT POCT GLUCOSE FINGERSTICK Routine 08/22/2025 12:34 AM EDT MRI BRAIN WO CONTRAST Routine 08/21/2025 11:38 PM EDT SCANNED - TELEMETRY 08/21/2025 8 :36 PM EDT POCT GLUCOSE FINGERSTICK Routine 08/21/2025 8:30 PM EDT ECG 12-LEAD STAT 08/21/2025 5:32 PM EDT Procedure Note - 08/21/2025 5:32 PM EDTThis note is in progress. Test Reason : ED Triage Standing Order~ Blood Pressure : */* mmHG Vent. Rate : 93 BPM Atrial Rate : 93 BPM P-R Int : 160 ms QRS Dur : 80 ms QT Int : 356 ms P-R-T Axes : 38 -4 74 degrees QTcB Int : 442 ms Normal sinus rhythm Normal ECG When compared with ECG of 27-Jul-2025 11:28, fusion complexes are no longer present T wave inversion no longer evident in Lateral leads Referred By: Confirmed By: XR CHEST 1 VW STAT 08/21/2025 5:[address] CEREBRAL PERFUSION W WO CONTRAST STAT 08/21/2025 5:[address] ANGIOGRAM HEAD W AI ANALYSIS OF LVO STAT 08/21/2025 5:[address] ANGIOGRAM NECK STAT 08/21/2025 5:0 2 PM EDT SCANNED - TELEMETRY 08/21/2025 4 :51 PM EDT VASQUES TOP STAT 08/21/2025 4:37 PM EDT GOLD TOP - SST STAT 08/21/2025 4:37 PM EDT DK GREEN TOP STAT 08/21/2025 4:37 PM EDT CBC WITH AUTO DIFFERENTIAL STAT 08/21/2025 4:37 PM EDT LAVENDER TOP STAT 08/21/2025 4:37 PM EDT LIGHT BLUE TOP STAT 08/21/2025 4:37 PM EDT RAINBOW DRAW STAT 08/21/2025 4:37 PM EDT APTT STAT 08/21/2025 4:37 PM EDT PROTIME-INR STAT 08/21/2025 4:37 PM EDT CBC AND DIFFERENTIAL STAT 08/21/2025 4:37 PM EDT ALT STAT 08/21/2025 4:37 PM EDT AST STAT 08/21/2025 4:37 PM EDT POCT [id number]-WL-[id number]-CR-H B-HCT STAT 08/21/2025 4:[address] HEAD WO CONTRAST STROKE PROTOCOL STAT 08/21/2025 4:31 PM EDT POCT GLUCOSE FINGERSTICK Routine 08/21/2025 4:20 PM EDT documented in this encounter Results * (ABNORMAL) POC Glucose Finger 4x Daily Before Meals & at Bedtime (08/23/2025 11:36 AM EDT) Glucose 139(H) 70 - 130 mg/dL 08/23/2025 11:40 AM EDT [facility] Comment:Serial Number: [id number]: [id number] Blood Finger structure / Unknown 08/23/2025 11:36 AM EDT 08/23/2025 11:40 AM EDT Beto Mars MD POINT OF CARE TEST ORDERABLES Final Result [facility]
[address] [place] [address], * (ABNORMAL) CBC Auto Differential (08/23/2025 10:43 AM EDT) WBC 6.82 3.40 - 10.80 10*3/mm3 08/23/2025 11:09 AM EDT [facility] RBC 3.13(L) 3.77 - 5.28 10*6/mm3 08/23/2025 11:09 AM EDT [facility] Hemoglobin 10.2(L) 12.0 - 15.9 g/dL 08/23/2025 11:09 AM EDT [facility] Hematocrit 29.3(L) 34.0 - 46.6 % 08/23/2025 11:09 AM EDT [facility] MCV 93.6 79.0 - 97.0 fL 08/23/2025 11:09 AM EDT [facility] MCH 32.6 26.6 - 33.0 pg 08/23/2025 11:09 AM EDT [facility] MCHC 34.8 31.5 - 35.7 g/dL 08/23/2025 11:09 AM EDT [facility] RDW 12.8 12.3 - 15.4 % 08/23/2025 11:09 AM EDT [facility] RDW-SD 43.1 37.0 - 54.0 fl 08/23/2025 [facility] MPV 10.1 6.0 - 12.0 fL 08/23/2025 11:09 AM [facility] Platelets 222 140 - 450 10*3/mm3 08/23/2025 11:09 AM [facility] Neutrophil % 73.5 42.7 - 76.0 % 08/23/2025 11:09 AM [facility] Lymphocyte % 18.2(L) 19.6 - 45.3 % 08/23/2025 11:09 AM [facility] Monocyte % 7.8 5.0 - 12.0 % 08/23/2025 11:09 AM [facility] Eosinophil % 0.0(L) 0.3 - 6.2 % 08/23/2025 11:09 AM [facility] Basophil % 0.1 0.0 - 1.5 % 08/23/2025 11:09 AM [facility] Immature Grans % 0.4 0.0 - 0.5 % 08/23/2025 11:09 AM [facility] Neutrophils, Absolute 5.01 1.70 - 7.00 10*3/mm3 08/23/2025 11:09 AM [facility] Lymphocytes, Absolute 1.24 0.70 - 3.10 10*3/mm3 08/23/2025 11:09 AM [facility] Monocytes, Absolute 0.53 0.10 - 0.90 10*3/mm3 08/23/2025 11:09 AM [facility] Eosinophils, Absolute 0.00 0.00 - 0.40 10*3/mm3 08/23/2025 11:09 AM [facility] Basophils, Absolute 0.01 0.00 - 0.20 10*3/mm3 08/23/2025 11:09 AM [facility] Immature Grans, Absolute 0.03 0.00 - 0.05 10*3/mm3 08/23/2025 11:09 AM [facility] nRBC 0.0 0.0 - 0.2 /100 WBC 08/23/2025 11:09 AM EDT [facility] Blood Venipuncture / Unknown 08/23/2025 10:43 AM EDT 08/23/2025 11:02 AM EDT Amanda Wren [employer] LAB BLOOD ORDERABLES F inal Result [facility]
[address] [place] [address], * Magnesium (08/23/2025 10:43 AM EDT) Magnesium 2.3 1.6 - 2.4 mg/dL 08/23/2025 11:33 AM EDT [facility] Blood Venipuncture / Unknown 08/23/2025 10:43 AM EDT 08/23/2025 11:[address] [facility] [employer] [facility] LAB BLOOD ORDERABLES F inal Result Performing Organization Address City/[facility] Co de Phone Number [facility]
[address] [place] [address], * (ABNORMAL) Renal Function Panel (08/23/2025 10:43 AM EDT) Glucose 169(H) 65 - 99 mg/dL 08/23/2025 11:33 AM EDT [facility] BUN 15.2 8.0 - 23.0 mg/dL 08/23/2025 11:33 AM EDT [facility] Creatinine 0.94 0.57 - 1.00 mg/dL 08/23/2025 11:33 AM EDT [facility] Sodium 141 136 - 145 mmol/L 08/23/2025 11:33 AM EDT [facility] Potassium 4.5 3.5 - 5.2 mmol/L 08/23/2025 11:33 AM EDT [facility] Chloride 107 98 - 107 mmol/L 08/23/2025 11:33 AM EDT [facility] CO2 25.9 22.0 - 29.0 mmol/L 08/23/2025 11:33 AM EDT [facility] Calcium 8.8 8.6 - 10.5 mg/dL 08/23/2025 11:33 AM EDT [facility] Albumin 3.7 3.5 - 5.2 g/dL 08/23/2025 11:33 AM EDT [facility] Phosphorus 3.4 2.5 - 4.5 mg/dL 08/23/2025 11:33 AM EDT [facility] Anion Gap 8.1 5.0 - 15.0 mmol/L 08/23/2025 11:33 AM EDT [facility] BUN/Creatinine Ratio 16.2 7.0 - 25.0 08/23/2025 11:33 AM T [facility] eGFR 68.7 >60.0 mL/min/1.7 3 08/23/2025 11:33 AM T [facility] Blood Venipuncture / Unknown 08/23/2025 10:43 AM EDT 08/23/2025 11:02 AM EDT [facility] - 08/23/2025 11:33 AM EDT GFR Categories in Chronic Kidney [...] not include race as a factor us Amanda Whitlock DO LAB BLOOD ORDERABLES F inal Result [facility]
[address] [id number], * POC Glucose Once (08/23/2025 9:07 AM EDT) Glucose 111 70 - 130 mg/dL 08/23/2025 9:10 AM EDT [facility] Comment:Serial Number: [id number]: [id number] Blood 08/23/2025 9:07 AM EDT 08/23/2025 9:10 AM EDT Amanda Whitlock DO POINT OF CARE TEST ORD ERABLES Final Result [facility]
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 There is also unchanged focal moderate to severe narrowing of the right ophthalmic and communicating segment ICA. No new high-grade stenosis, occlusion or aneurysm. Electronically Signed: Saurabh Prieto MD 08/23/2025 10:15 AM EDT Workstation ID: [id number] Narrative 08/23/2025 10:15 AM EDT MRI ANGIOGRAM NECK W CONTRAST, MRI ANGIOGRAM HEAD W WO CONTRAST Date of Exam: 08/23/2025 8:25 AM EDT Indication: icad / flow SEND TO [facility] WORKFORCE SPECIALIST. Comparison: 08/21/2025. Technique: Routine 3-D fbig-gp-hutmyj gradient echo imaging was obtained of the head and neck after the uneventful administration of Vueway. Findings: Patent great vessel origins. The subclavian arteries appear patent. The cervical right ICA is patent with 0% narrowing present by NASCET criteria. The left cervical ICA is attenuated along its entire course beyond a patent origin. The right cervical vertebral artery and left cervical vertebral artery are patent. Intracranially, the right ICA is patent. There is redemonstrated attenuation of the left petrous and cavernous segment ICA which appears likely occluded, with reconstitution of the communicating segment near the P-comm origin and with normal filling of the left anterior and middle cerebral arteries. There is also unchanged focal moderate to severe narrowing of the right ophthalmic and communicating segment ICA. The right MCA is patent. The vertebrobasilar system is patent. The posterior cerebral arteries appear normal in course and caliber. Procedure Note Yadiel Prieto MD - 08/23/2025 MRI ANGIOGRAM NECK W CONTRAST, MRI ANGIOGRAM HEAD W WO CONTRAST Date of Exam: 08/23/2025 8:25 AM EDT Indication: icad / flow SEND TO [employer] WORKFORCE SPECIALIST. Comparison: 08/21/2025. Technique: Routine 3-D rluz-wd-fvkjjm gradient echo imaging was obtainedof the head and neck after the uneventful administration of Vueway. Findings: Patent great vessel origins. The subclavian arteries appear patent. Thecervical right ICA is patent with 0% narrowing present by NASCET criteria.The left cervical ICA is attenuated along its entire course beyond apatent origin. The right cervical vertebral artery and left cervical vertebral artery are patent.Intracranially, the right ICA is patent. There is redemonstratedattenuation of the left petrous and cavernous segment ICA which appearslikely occluded, with reconstitution of the communicating segment near the P-comm origin and with normal filling ofthe left anterior and middle cerebral arteries. There is also unchangedfocal moderate to severe narrowing of the right ophthalmic andcommunicating segment ICA. The right MCA is patent. The vertebrobasilar system is patent. The posterior cerebralarteries appear normal in course and caliber. IMPRESSION: Impression: Redemonstrated long segment occlusion of the left intracranial ICA, withreconstitution of the communicating segment near the P-comm origin. Thereis also unchanged focal moderate to severe narrowing of the rightophthalmic and communicating segment ICA. No new high-grade stenosis, occlusion or aneurysm. Electronically Signed: Saurabh Prieto MD 08/23/2025 10:15 AM EDT Workstation ID: [id number] us Maulik Yun MD [facility] [place] MRI ORDERABLES Final R esult * MRI Angiogram Head With & Without Contrast (08/23/2025 8:47 AM EDT) Anatomical Region Laterality Modality Head, Neck N/A Magnetic Resonan ce 08/23/2025 8:52 AM EDT Impressions 08/23/2025 10:15 AM EDT Impression: Redemonstrated long segment occlusion of the left intracranial ICA, with reconstitution of the communicating segment near the P-comm origin. There is also unchanged focal moderate to severe narrowing of the right ophthalmic and communicating segment ICA. No new high-grade stenosis, occlusion or aneurysm. Electronically Signed: Saurabh Prieto MD 08/23/2025 10:15 AM EDT Workstation ID: [id number] Narrative 08/23/2025 10:15 AM EDT MRI ANGIOGRAM NECK W CONTRAST, MRI ANGIOGRAM HEAD W WO CONTRAST Date of Exam: 08/23/2025 8:25 AM EDT Indication: icad / flow SEND TO [employer]IST. Comparison: 08/21/2025. Technique: Routine 3-D fkcf-tk-[id number] gradient echo imaging was obtained of the head and neck after the uneventful administration of Vueway. Findings: Patent great vessel origins. The subclavian arteries appear patent. The cervical right ICA is patent with 0% narrowing present by NASCET criteria. The left cervical ICA is attenuated along its entire course beyond a patent origin. The right cervical vertebral artery and left cervical vertebral artery are patent. Intracranially, the right ICA is patent. There is redemonstrated attenuation of the left petrous and cavernous segment ICA which appears likely occluded, with reconstitution of the communicating segment near the P-comm origin and with normal filling of the left anterior and middle cerebral arteries. There is also unchanged focal moderate to severe narrowing of the right ophthalmic and communicating segment ICA. The right MCA is patent. The vertebrobasilar system is patent. The posterior cerebral arteries appear normal in course and caliber. Procedure Note Yadiel Prieto MD - 08/23/2025 MRI ANGIOGRAM NECK W CONTRAST, MRI ANGIOGRAM HEAD W WO CONTRAST Date of Exam: 08/23/2025 8:25 AM EDT Indication: icad / flow SEND TO [facility] WORKFORCE SPECIALIST. Comparison: 08/21/2025. Technique: Routine 3-D xnyw-lm-dbngmv gradient echo imaging was obtainedof the head and neck after the uneventful administration of Vueway. Findings: Patent great vessel origins. The subclavian arteries appear patent. Thecervical right ICA is patent with 0% narrowing present by NASCET criteria.The left cervical ICA is attenuated along its entire course beyond apatent origin. The right cervical vertebral artery and left cervical vertebral artery are patent.Intracranially, the right ICA is patent. There is redemonstratedattenuation of the left petrous and cavernous segment ICA which appearslikely occluded, with reconstitution of the communicating segment near the P-comm origin and with normal filling ofthe left anterior and middle cerebral arteries. There is also unchangedfocal moderate to severe narrowing of the right ophthalmic andcommunicating segment ICA. The right MCA is patent. The vertebrobasilar system is patent. The posterior cerebralarteries appear normal in course and caliber. IMPRESSION: Impression: Redemonstrated long segment occlusion of the left intracranial ICA, withreconstitution of the communicating segment near the P-comm origin. Thereis also unchanged focal moderate to severe narrowing of the rightophthalmic and communicating segment ICA. No new high-grade stenosis, occlusion or aneurysm. Electronically Signed: Saurabh Prieto MD 08/23/2025 10:15 AM EDT Workstation ID: [id number] us Maulik Ynu MD IM MRI ORDERABLES Final R esult * (ABNORMAL) POC Glucose Once (08/22/2025 7:13 PM EDT) Glucose 140(H) 70 - 130 mg/dL 08/22/2025 7:15 PM EDT [facility] Comment:Serial Number: [id number]: [id number] Blood 08/22/2025 7:13 PM EDT 08/22/2025 7:15 PM EDT Amanda Whitlock DO POINT OF CARE TEST ORD ERABLES Final Result [facility]
[address] [place] [address], * (ABNORMAL) POC Glucose Once (08/22/2025 4:43 PM EDT) Glucose 136(H) 70 - 130 mg/dL 08/22/2025 4:46 PM EDT [facility] Comment:Serial Number: [id number]: [id number] Blood 08/22/2025 4:43 PM EDT 08/22/2025 4:46 PM EDT us Amanda Whitlock DO POINT OF CARE TEST ORD ERABLES Final Result [facility]
[address] [place] [address], * P2Y12 Platelet Inhibition (08/22/2025 4:18 PM EDT) Pathologist [facility] P2Y12 Reactivity Unit 33 PRU DISK DIFFUSION 08/22/2025 5:05 PM EDT [facility] Blood Venipuncture / Unknown 08/22/2025 4:18 PM EDT 08/22/2025 4:38 PM EDT Narrative [facility] - 08/22/2025 5:05 PM EDT P2Y12 Interpretation: Pre-Drug normal reference range is 194-418 PRU. Test results are reported in P2Y12 reaction units (PRU). This measures the extent of platelet aggregation in the presence of P2Y12 inhibitor drugs, such as clopidogrel (Plavix), prasugrel (Effient), ticagrelor (Brilinta), ticlopidine (Ticlid). P2Y12 values <194 PRU (low end of reference range) are specific evidence of a P2Y12 inhibitor effect. Patients who have been treated with Glycoprotein IIb/IIIa inhibitors should not be tested until platelet function has recovered. This time period is approximately 14 days after discontinuation of abciximab (ReoPro) and up to 48 hours after discontinuation of eptifibatide (Integrilin) and tirofiban (Aggrastat). The P2Y12 test results should be interpreted in conjunction with other clinical and lab data available to the clinician. Maulik Yun MD LAB BLOOD ORDERABLES Final Result [facility]
[address] [place] [address], * (ABNORMAL) CBC (No Diff) (08/22/2025 4:18 PM EDT) WBC 5.57 3.40 - 10.80 10*3/mm3 08/22/2025 4:48 PM EDT [facility] RBC 3.02(L) 3.77 - 5.28 10*6/mm3 08/22/2025 4:48 PM EDT [facility] Hemoglobin 9.4(L) 12.0 - 15.9 g/dL 08/22/2025 4:48 PM EDT [facility] Hematocrit 27.6(L) 34.0 - 46.6 % 08/22/2025 4:48 PM EDT [facility] MCV 91.4 79.0 - 97.0 fL 08/22/2025 4:48 PM EDT [facility] MCH 31.1 26.6 - 33.0 pg 08/22/2025 4:48 PM EDT [facility] MCHC 34.1 31.5 - 35.7 g/dL 08/22/2025 4:48 PM EDT [facility] RDW 12.7 12.3 - 15.4 % 08/22/2025 4:48 PM EDT [facility] RDW-SD 42.1 37.0 - 54.0 fl 08/22/2025 4:48 PM EDT [facility] MPV 10.0 6.0 - 12.0 fL 08/22/2025 4:48 PM EDT [facility] Platelets 236 140 - 450 10*3/mm3 08/22/2025 4:48 PM EDT [facility] Blood Venipuncture / Unknown 08/22/2025 4:18 PM EDT 08/22/2025 4:38 PM EDT Beto Mars MD LAB BLOOD ORDERABLES Final Re sult Performing Organization Address [facility]/ZIP Co de Phone Number [facility]
[address] [place] [address], * Magnesium (08/22/2025 4:17 PM EDT) Magnesium 1.9 1.6 - 2.4 mg/dL 08/22/2025 5:06 PM EDT [facility] Blood Venipuncture / Unknown 08/22/2025 4:17 PM EDT 08/22/2025 4:39 PM EDT Beto Mars MD LAB BLOOD ORDERABLES Final Re sult Performing Organization Address [facility] Co de Phone Number [facility]
[address] [place] [address], * (ABNORMAL) Basic Metabolic Panel (08/22/2025 4:17 PM EDT) Glucose 125(H) 65 - 99 mg/dL 08/22/2025 5:06 PM EDT [facility] BUN 17.5 8.0 - 23.0 mg/dL 08/22/2025 5:06 PM EDT [facility] Creatinine 0.89 0.57 - 1.00 mg/dL 08/22/2025 5:06 PM EDT [facility] Sodium 139 136 - 145 mmol/L 08/22/2025 5:06 PM EDT [facility] Potassium 4.6 3.5 - 5.2 mmol/L 08/22/2025 5:06 PM EDT [facility] Chloride 106 98 - 107 mmol/L 08/22/2025 5:06 PM EDT [facility] CO2 25.3 22.0 - 29.0 mmol/L 08/22/2025 5:06 PM EDT [facility] Calcium 8.9 8.6 - 10.5 mg/dL 08/22/2025 5:06 PM EDT [facility] BUN/Creatinine Ratio 19.7 7.0 - 25.0 08/22/2025 5:06 PM EDT [facility] Anion Gap 7.7 5.0 - 15.0 mmol/L 08/22/2025 5:06 PM EDT [facility] eGFR 73.4 >60.0 mL/min/1.7 3 08/22/2025 5:06 PM EDT [facility] Blood Venipuncture / Unknown 08/22/2025 4:17 PM EDT 08/22/2025 4:39 PM EDT Narrative [facility] - 08/22/2025 5:06 PM EDT GFR Categories in Chronic Kidney [...] not include race as a factor us Beto Mars MD LAB BLOOD ORDERABLES Final Re sult [facility]
[address] [place] [address], * (ABNORMAL) POC Glucose Finger 4x Daily Before Meals & at Bedtime (08/22/2025 12:24 PM EDT) Glucose 139(H) 70 - 130 mg/dL 08/22/2025 12:26 PM EDT [facility] Comment:Serial Number: [id number]: [id number] Blood Finger structure / Unknown 08/22/2025 12:24 PM EDT 08/22/2025 12:26 PM EDT us Beto Mars MD POINT OF CARE TEST ORDERABLES Final Result Performing Organization Address [facility] Co de Phone Number [facility]
[address] [place] [address], * POC Glucose Finger 4x Daily Before Meals & at Bedtime (08/22/2025 7:46 AM EDT) Glucose 123 70 - 130 mg/dL 08/22/2025 7:47 AM EDT [facility] Comment:Serial Number: [id number]: [id number] Blood Finger structure / Unknown 08/22/2025 7:46 AM EDT 08/22/2025 7:47 AM EDT Beto Mars MD POINT OF CARE TEST ORDERABLES Final Result Performing Organization Address [facility] de Phone Number [facility]
[address] [place] [address], * POC Glucose Once (08/22/2025 2:54 AM EDT) Glucose 86 70 - 130 mg/dL 08/22/2025 2:56 AM EDT [facility] Comment:Serial Number: [id number]: [id number] Blood 08/22/2025 2:54 AM EDT 08/22/2025 2:56 AM EDT us Beto Mars MD POINT OF CARE TEST ORDERABLES Final Result Performing Organization Address [facility] Co de Phone Number [facility]
[address] [place] [address], * (ABNORMAL) POC Glucose Once (08/22/2025 2:35 AM EDT) Glucose 67(L) 70 - 130 mg/dL 08/22/2025 2:37 AM EDT [facility] Comment:Serial Number: [id number]: [id number] Blood 08/22/2025 2:35 AM EDT 08/22/2025 2:37 AM EDT Beto Mars MD POINT OF CARE TEST ORDERABLES Final Result Performing Organization Address [facility] de Phone Number [facility]
[address] [place] [address], * POC Glucose Once (08/22/2025 2:14 AM EDT) Glucose 71 70 - 130 mg/dL 08/22/2025 2:17 AM EDT [facility] Comment:Serial Number: [id number]: [id number] Blood 08/22/2025 2:14 AM EDT 08/22/2025 2:17 AM EDT Beto Mars MD POINT OF CARE TEST ORDERABLES Final Result Performing Organization Address [facility] de Phone Number [facility]
[address] [place] [address], * POC Glucose Q6H (08/22/2025 12:34 AM EDT) Glucose 116 70 - 130 mg/dL 08/22/2025 12:36 AM EDT [facility] Comment:Serial Number: [id number]: [id number] Blood 08/22/2025 12:3 4 AM EDT 08/22/2025 12:36 AM EDT Michela López APRN POINT OF CARE TEST ORDERABL ES Final Result [facility]
[address] [place] [address], * MRI Brain Without Contrast (08/21/2025 11:38 PM EDT) Anatomical Region Laterality Modality Head, Neck N/A Magnetic Resonan ce 08/22/2025 4:17 AM EDT Impressions 08/22/2025 4:24 AM EDT Impression: There are multiple small patchy areas of pathologic restricted diffusion in the left frontal and parietal lobes. There are 2 new areas of restricted diffusion seen adjacent to the anterior horn of the left lateral ventricle. There is no evidence of acute hemorrhage. Electronically Signed: Ck Arredondo MD 08/22/2025 4:24 AM EDT Workstation ID: [id number] Narrative 08/22/2025 4:24 AM EDT MRI BRAIN WO CONTRAST Date of Exam: 08/21/2025 11:35 PM EDT Indication: Stroke, follow up Transient L facial droop, dysarthria and gait disturbance -chronic right ICA stenosis and left ICA occlusion. Comparison: MRI of the brain 07/26/2025; CT head 08/21/2025 Technique: Routine multiplanar/multisequence sequence images of the brain were obtained without contrast administration. Findings: There are multiple small patchy areas of pathologic restricted diffusion within the subcortical white matter and periventricular white matters of the left frontal and parietal lobes. There are 2 new more increased abnormal restricted diffusion seen adjacent to the anterior horn of the left lateral ventricle chest both measuring approximately 6 mm in size. There is no evidence of acute hemorrhage. There are no abnormal extra-axial fluid collections. Again seen is absence of the flow-void of the left petrous, cavernous and supraclinoid portions of the left internal carotid artery. The flow void of the left middle cerebral artery appears to be patent. Please correlate with recent CT angiogram of the head. Procedure Note Ck Arredondo MD - 08/22/2025 MRI BRAIN WO CONTRAST Date of Exam: 08/21/2025 11:35 PM EDT Indication: Stroke, follow up Transient L facial droop, dysarthria and gait disturbance -chronic rightICA stenosis and left ICA occlusion. Comparison: MRI of the brain 07/26/2025; CT head 08/21/2025 Technique: Routine multiplanar/multisequence sequence images of the brainwere obtained without contrast administration. Findings: There are multiple small patchy areas of pathologic restricted diffusionwithin the subcortical white matter and periventricular white matters ofthe left frontal and parietal lobes. There are 2 new more increasedabnormal restricted diffusion seen adjacent to the anterior horn of the left lateral ventricle chest bothmeasuring approximately 6 mm in size. There is no evidence of acute hemorrhage. There are no abnormalextra-axial fluid collections. Again seen is absence of the flow-void ofthe left petrous, cavernous and supraclinoid portions of the left internalcarotid artery. The flow void of the left middle cerebral artery appears to be patent. Please correlate with recentCT angiogram of the head. IMPRESSION: Impression: There are multiple small patchy areas of pathologic restricted diffusionin the left frontal and parietal lobes. There are 2 new areas ofrestricted diffusion seen adjacent to the anterior horn of the leftlateral ventricle. There is no evidence of acute hemorrhage. Electronically Signed: Ck Arredondo MD 08/22/2025 4:24 AM EDT Workstation ID: [id number] Michela López APRN [facility] [place] MRI ORDERABLES Final Re sult * Telemetry Scan (08/21/2025 8:36 PM EDT) [facility] ORDERABLES Final Result * POC Glucose Once (08/21/2025 8:30 PM EDT) [facility] Glucose 85 70 - 130 mg/dL 08/21/2025 8:33 PM EDT [facility] Comment:Serial Number: [id number]: [id number] Blood 08/21/2025 8:30 PM EDT 08/21/2025 8:33 PM EDT Beto Mars MD POINT OF CARE TEST ORDERABLES Final Result [facility]
[address] [place] [address], * XR Chest 1 View (08/21/2025 5:17 PM EDT) Anatomical Region Laterality Modality Body N/A Radiographic Laura ging 08/21/2025 5:40 PM EDT Impressions 08/21/2025 5:40 PM EDT Impression: No acute cardiopulmonary abnormality. Electronically Signed: Brock Durham MD 08/21/2025 5:40 PM EDT Workstation ID: [id number] Narrative 08/21/2025 5:40 PM EDT XR CHEST 1 VW Date of Exam: 08/21/2025 5:12 PM EDT Indication: Acute Stroke Protocol (onset < 12 hrs). Comparison: None available. Findings: The cardiomediastinal silhouette is within normal limits. Pulmonary vascularity appears normal. There is no focal airspace consolidation, pleural effusion, or pneumothorax. There are degenerative changes of the thoracic spine. Procedure Note Brock Durham MD - 08/21/2025 XR CHEST 1 VW Date of Exam: 08/21/2025 5:12 PM EDT Indication: Acute Stroke Protocol (onset < 12 hrs). Comparison: None available. Findings: The cardiomediastinal silhouette is within normal limits. Pulmonaryvascularity appears normal. There is no focal airspace consolidation,pleural effusion, or pneumothorax. There are degenerative changes of thethoracic spine. IMPRESSION: Impression: No acute cardiopulmonary abnormality. Electronically Signed: Brock Durham MD 08/21/2025 5:40 PM EDT Workstation ID: [id number] Ariel Washington MD IMG DIAGNOSTIC IMAGING ORDE JODI Final Result * CT CEREBRAL PERFUSION WITH & WITHOUT CONTRAST (08/21/2025 5:02 PM EDT) Anatomical Region Laterality Modality Head N/A Computed Tomogra phy 08/21/2025 5:04 PM EDT Impressions 08/21/2025 5:41 PM EDT 1.Apparent occlusion of the left petrous, cavernous, and supraclinoid ICA with reconstitution of the left ICA terminus. Left middle and anterior cerebral arteries appear patent. Occlusion of the left petrous and cavernous ICA may be new since 07/26/2025, or these segments may be patent but poorly opacified due to technical factors/contrast bolus timing. 2.Otherwise, no intracranial large vessel occlusion is identified. 3.Probable moderate to severe stenosis within the right supraclinoid ICA. 4.CT perfusion study demonstrates patchy regions of prolonged Tmax greater than 6 seconds within the left frontoparietal region (27 mL). There is a larger, more confluent region of minimally prolonged Tmax greater than 4 seconds within the left MCA territory (approximately 169 mL). Findings may be related to altered hemodynamics related to known left ICA occlusion. At risk ischemic tissue within the left MCA territory is not excluded. No territorial core infarct is demonstrated. Of note, similar findings were present on the CT perfusion study from 07/26/2025. Please correlate with findings on MRI. The above findings were discussed with Juju Vasques and Michela López, stroke rn urgent care, via telephone on 08/21/2025 5:33 PM EDT. Electronically Signed: Ashvin Stockton MD 08/21/2025 5:41 PM EDT Workstation ID: [id number] Narrative 08/21/2025 5:[address] ANGIOGRAM HEAD W AI ANALYSIS OF LVO, CT CEREBRAL PERFUSION W WO CONTRAST, CT ANGIOGRAM NECK Date of Exam: 08/21/2025 4:29 PM EDT Indication: Neuro Deficit, acute, Stroke suspected Neuro deficit, acute stroke suspected. Comparison: Head CT from today, CTA of the head and neck dated 07/26/2025 Technique: CTA of the head was performed after the uneventful intravenous administration of iodinated contrast. Reconstructed coronal and sagittal images were also obtained. In addition, a 3-D volume rendered image was created for interpretation. Automated exposure control and iterative reconstruction methods were used. FINDINGS: Vascular Findings: Atherosclerotic plaque is seen within the right carotid bifurcation and right carotid siphon. Probable moderate to severe stenosis within the right supraclinoid ICA again noted. The right common carotid, remainder of the right ICA, middle cerebral, anterior cerebral, vertebral, and posterior cerebral arteries are patent without abrupt cut off or aneurysmal dilation. Apparent occlusion of the left petrous, cavernous, and supraclinoid ICA with reconstitution of the left ICA terminus. Occlusion of the left cavernous and supraclinoid ICA may be new since 07/26/2025, or these segments may be patent but poorly opacified due to technical factors/contrast bolus timing. Left distal cervical ICA is somewhat diminutive . Left common carotid artery appears unremarkable. Left middle cerebral, anterior cerebral, vertebral, and posterior cerebral arteries are patent without abrupt cut off or aneurysmal dilation. Basilar artery appears patent and appears unremarkable. Non-vascular Findings: For description of nonvascular intracranial findings, please refer to the noncontrast head CT performed the same date. No acute abnormality is identified within the visualized soft tissue or bony structures of the neck. The visualized lung apices are clear. CT Perfusion: CBF (<30%) volume: 0 mL Tmax (>6.0s) volume: 27 mL Mismatch volume: 27 mL Mismatch ratio: Infinite Procedure Note Ashvin Stockton MD - 08/21/2025 CT ANGIOGRAM HEAD W AI ANALYSIS OF LVO, CT CEREBRAL PERFUSION W WOCONTRAST, CT ANGIOGRAM NECK Date of Exam: 08/21/2025 4:29 PM EDT Indication: Neuro Deficit, acute, Stroke suspected Neuro deficit, acute stroke suspected. Comparison: Head CT from today, CTA of the head and neck dated 07/26/2025 Technique: CTA of the head was performed after the uneventful intravenousadministration of iodinated contrast. Reconstructed coronal and sagittalimages were also obtained. In addition, a 3-D volume rendered image wascreated for interpretation. Automated exposure control and iterative reconstruction methods wereused. FINDINGS: Vascular Findings: Atherosclerotic plaque is seen within the right carotid bifurcation andright carotid siphon. Probable moderate to severe stenosis within theright supraclinoid ICA again noted. The right common carotid, remainder ofthe right ICA, middle cerebral, anterior cerebral, vertebral, and posterior cerebral arteries are patentwithout abrupt cut off or aneurysmal dilation. Apparent occlusion of the left petrous, cavernous, and supraclinoid ICAwith reconstitution of the left ICA terminus. Occlusion of the leftcavernous and supraclinoid ICA may be new since 07/26/2025, or thesesegments may be patent but poorly opacified due to technical factors/contrast bolus timing. Left distal cervical ICAis somewhat diminutive . Left common carotid artery appears unremarkable.Left middle cerebral, anterior cerebral, vertebral, and posterior cerebralarteries are patent without abrupt cut off or aneurysmal dilation. Basilar artery appears patent and appears unremarkable. Non-vascular Findings: For description of nonvascular intracranial findings, please refer to thenoncontrast head CT performed the same date. No acute abnormality is identified within the visualized soft tissue orbony structures of the neck. The visualized lung apices are clear. CT Perfusion: CBF (<30%) volume: 0 mL Tmax (>6.0s) volume: 27 mL Mismatch volume: 27 mL Mismatch ratio: Infinite IMPRESSION: 1.Apparent occlusion of the left petrous, cavernous, and supraclinoid ICAwith reconstitution of the left ICA terminus. Left middle and anteriorcerebral arteries appear patent. Occlusion of the left petrous andcavernous ICA may be new since 07/26/2025, or these segments may be patent but poorly opacified due to technicalfactors/contrast bolus timing. 2.Otherwise, no intracranial large vessel occlusion is identified. 3.Probable moderate to severe stenosis within the right supraclinoidICA. 4.CT perfusion study demonstrates patchy regions of prolonged Tmax greaterthan 6 seconds within the left frontoparietal region (27 mL). There is alarger, more confluent region of minimally prolonged Tmax greater than 4seconds within the left MCA territory (approximately 169 mL). Findings may be related to alteredhemodynamics related to known left ICA occlusion. At risk ischemic tissuewithin the left MCA territory is not excluded. No territorial core infarctis demonstrated. Of note, similar findings were present on the CT perfusion study from 07/26/2025. Pleasecorrelate with findings on MRI. The above findings were discussed with Juju Vasques and Michela López,stroke rn urgent care, via telephone on 08/21/2025 5:33 PM EDT. Electronically Signed: Ashvin Stockton MD 08/21/2025 5:41 PM EDT Workstation ID: [id number] us Ariel Washington MD IMG CT ORDERABLES Final Res ult * CT Angiogram Neck (08/21/2025 5:02 PM EDT) Anatomical Region Laterality Modality Neck, Vascular N/A Computed Tomogra phy 08/21/2025 5:04 PM EDT Impressions 08/21/2025 5:41 PM EDT 1.Apparent occlusion of the left petrous, cavernous, and supraclinoid ICA with reconstitution of the left ICA terminus. Left middle and anterior cerebral arteries appear patent. Occlusion of the left petrous and cavernous ICA may be new since 07/26/2025, or these segments may be patent but poorly opacified due to technical factors/contrast bolus timing. 2.Otherwise, no intracranial large vessel occlusion is identified. 3.Probable moderate to severe stenosis within the right supraclinoid ICA. 4.CT perfusion study demonstrates patchy regions of prolonged Tmax greater than 6 seconds within the left frontoparietal region (27 mL). There is a larger, more confluent region of minimally prolonged Tmax greater than 4 seconds within the left MCA territory (approximately 169 mL). Findings may be related to altered hemodynamics related to known left ICA occlusion. At risk ischemic tissue within the left MCA territory is not excluded. No territorial core infarct is demonstrated. Of note, similar findings were present on the CT perfusion study from 07/26/2025. Please correlate with findings on MRI. The above findings were discussed with Juju Vasques and Michela López, stroke rn urgent care, via telephone on 08/21/2025 5:33 PM EDT. Electronically Signed: Ashvin Stockton MD 08/21/2025 5:41 PM EDT Workstation ID: [id number] Narrative 08/21/2025 5:[address] ANGIOGRAM HEAD W AI ANALYSIS OF LVO, CT CEREBRAL PERFUSION W WO CONTRAST, CT ANGIOGRAM NECK Date of Exam: 08/21/2025 4:29 PM EDT Indication: Neuro Deficit, acute, Stroke suspected Neuro deficit, acute stroke suspected. Comparison: Head CT from today, CTA of the head and neck dated 07/26/2025 Technique: CTA of the head was performed after the uneventful intravenous administration of iodinated contrast. Reconstructed coronal and sagittal images were also obtained. In addition, a 3-D volume rendered image was created for interpretation. Automated exposure control and iterative reconstruction methods were used. FINDINGS: Vascular Findings: Atherosclerotic plaque is seen within the right carotid bifurcation and right carotid siphon. Probable moderate to severe stenosis within the right supraclinoid ICA again noted. The right common carotid, remainder of the right ICA, middle cerebral, anterior cerebral, vertebral, and posterior cerebral arteries are patent without abrupt cut off or aneurysmal dilation. Apparent occlusion of the left petrous, cavernous, and supraclinoid ICA with reconstitution of the left ICA terminus. Occlusion of the left cavernous and supraclinoid ICA may be new since 07/26/2025, or these segments may be patent but poorly opacified due to technical factors/contrast bolus timing. Left distal cervical ICA is somewhat diminutive . Left common carotid artery appears unremarkable. Left middle cerebral, anterior cerebral, vertebral, and posterior cerebral arteries are patent without abrupt cut off or aneurysmal dilation. Basilar artery appears patent and appears unremarkable. Non-vascular Findings: For description of nonvascular intracranial findings, please refer to the noncontrast head CT performed the same date. No acute abnormality is identified within the visualized soft tissue or bony structures of the neck. The visualized lung apices are clear. CT Perfusion: CBF (<30%) volume: 0 mL Tmax (>6.0s) volume: 27 mL Mismatch volume: 27 mL Mismatch ratio: Infinite Procedure Note Ashvin Stockton MD - 08/21/2025 CT ANGIOGRAM HEAD W AI ANALYSIS OF LVO, CT CEREBRAL PERFUSION W WOCONTRAST, CT ANGIOGRAM NECK Date of Exam: 08/21/2025 4:29 PM EDT Indication: Neuro Deficit, acute, Stroke suspected Neuro deficit, acute stroke suspected. Comparison: Head CT from today, CTA of the head and neck dated 07/26/2025 Technique: CTA of the head was performed after the uneventful intravenousadministration of iodinated contrast. Reconstructed coronal and sagittalimages were also obtained. In addition, a 3-D volume rendered image wascreated for interpretation. Automated exposure control and iterative reconstruction methods wereused. FINDINGS: Vascular Findings: Atherosclerotic plaque is seen within the right carotid bifurcation andright carotid siphon. Probable moderate to severe stenosis within theright supraclinoid ICA again noted. The right common carotid, remainder ofthe right ICA, middle cerebral, anterior cerebral, vertebral, and posterior cerebral arteries are patentwithout abrupt cut off or aneurysmal dilation. Apparent occlusion of the left petrous, cavernous, and supraclinoid ICAwith reconstitution of the left ICA terminus. Occlusion of the leftcavernous and supraclinoid ICA may be new since 07/26/2025, or thesesegments may be patent but poorly opacified due to technical factors/contrast bolus timing. Left distal cervical ICAis somewhat diminutive . Left common carotid artery appears unremarkable.Left middle cerebral, anterior cerebral, vertebral, and posterior cerebralarteries are patent without abrupt cut off or aneurysmal dilation. Basilar artery appears patent and appears unremarkable. Non-vascular Findings: For description of nonvascular intracranial findings, please refer to thenoncontrast head CT performed the same date. No acute abnormality is identified within the visualized soft tissue orbony structures of the neck. The visualized lung apices are clear. CT Perfusion: CBF (<30%) volume: 0 mL Tmax (>6.0s) volume: 27 mL Mismatch volume: 27 mL Mismatch ratio: Infinite IMPRESSION: 1.Apparent occlusion of the left petrous, cavernous, and supraclinoid ICAwith reconstitution of the left ICA terminus. Left middle and anteriorcerebral arteries appear patent. Occlusion of the left petrous andcavernous ICA may be new since 07/26/2025, or these segments may be patent but poorly opacified due to technicalfactors/contrast bolus timing. 2.Otherwise, no intracranial large vessel occlusion is identified. 3.Probable moderate to severe stenosis within the right supraclinoidICA. 4.CT perfusion study demonstrates patchy regions of prolonged Tmax greaterthan 6 seconds within the left frontoparietal region (27 mL). There is alarger, more confluent region of minimally prolonged Tmax greater than 4seconds within the left MCA territory (approximately 169 mL). Findings may be related to alteredhemodynamics related to known left ICA occlusion. At risk ischemic tissuewithin the left MCA territory is not excluded. No territorial core infarctis demonstrated. Of note, similar findings were present on the CT perfusion study from 07/26/2025. Pleasecorrelate with findings on MRI. The above findings were discussed with Juju Vasques and Michela López,stroke rn urgent care, via telephone on 08/21/2025 5:33 PM EDT. Electronically Signed: Ashvin Stockton MD 08/21/2025 5:41 PM EDT Workstation ID: [id number] Ariel Washington MD IMG CT ORDERABLES Final Res ult * CT Angiogram Head w AI Analysis of LVO (08/21/2025 5:02 PM EDT) Anatomical Region Laterality Modality Head, Vascular N/A Computed Tomogra phy 08/21/2025 5:04 PM EDT Impressions 08/21/2025 5:41 PM EDT 1.Apparent occlusion of the left petrous, cavernous, and supraclinoid ICA with reconstitution of the left ICA terminus. Left middle and anterior cerebral arteries appear patent. Occlusion of the left petrous and cavernous ICA may be new since 07/26/2025, or these segments may be patent but poorly opacified due to technical factors/contrast bolus timing. 2.Otherwise, no intracranial large vessel occlusion is identified. 3.Probable moderate to severe stenosis within the right supraclinoid ICA. 4.CT perfusion study demonstrates patchy regions of prolonged Tmax greater than 6 seconds within the left frontoparietal region (27 mL). There is a larger, more confluent region of minimally prolonged Tmax greater than 4 seconds within the left MCA territory (approximately 169 mL). Findings may be related to altered hemodynamics related to known left ICA occlusion. At risk ischemic tissue within the left MCA territory is not excluded. No territorial core infarct is demonstrated. Of note, similar findings were present on the CT perfusion study from 07/26/2025. Please correlate with findings on MRI. The above findings were discussed with Juju Vasques and Michela López, stroke rn urgent care, via telephone on 08/21/2025 5:33 PM EDT. Electronically Signed: Ashvin Stockton MD 08/21/2025 5:41 PM EDT Workstation ID: [id number] Narrative 08/21/2025 5:[address] ANGIOGRAM HEAD W AI ANALYSIS OF LVO, CT CEREBRAL PERFUSION W WO CONTRAST, CT ANGIOGRAM NECK Date of Exam: 08/21/2025 4:29 PM EDT Indication: Neuro Deficit, acute, Stroke suspected Neuro deficit, acute stroke suspected. Comparison: Head CT from today, CTA of the head and neck dated 07/26/2025 Technique: CTA of the head was performed after the uneventful intravenous administration of iodinated contrast. Reconstructed coronal and sagittal images were also obtained. In addition, a 3-D volume rendered image was created for interpretation. Automated exposure control and iterative reconstruction methods were used. FINDINGS: Vascular Findings: Atherosclerotic plaque is seen within the right carotid bifurcation and right carotid siphon. Probable moderate to severe stenosis within the right supraclinoid ICA again noted. The right common carotid, remainder of the right ICA, middle cerebral, anterior cerebral, vertebral, and posterior cerebral arteries are patent without abrupt cut off or aneurysmal dilation. Apparent occlusion of the left petrous, cavernous, and supraclinoid ICA with reconstitution of the left ICA terminus. Occlusion of the left cavernous and supraclinoid ICA may be new since 07/26/2025, or these segments may be patent but poorly opacified due to technical factors/contrast bolus timing. Left distal cervical ICA is somewhat diminutive . Left common carotid artery appears unremarkable. Left middle cerebral, anterior cerebral, vertebral, and posterior cerebral arteries are patent without abrupt cut off or aneurysmal dilation. Basilar artery appears patent and appears unremarkable. Non-vascular Findings: For description of nonvascular intracranial findings, please refer to the noncontrast head CT performed the same date. No acute abnormality is identified within the visualized soft tissue or bony structures of the neck. The visualized lung apices are clear. CT Perfusion: CBF (<30%) volume: 0 mL Tmax (>6.0s) volume: 27 mL Mismatch volume: 27 mL Mismatch ratio: Infinite Procedure Note Ashvin Stockton MD - 08/21/2025 CT ANGIOGRAM HEAD W AI ANALYSIS OF LVO, CT CEREBRAL PERFUSION W WOCONTRAST, CT ANGIOGRAM NECK Date of Exam: 08/21/2025 4:29 PM EDT Indication: Neuro Deficit, acute, Stroke suspected Neuro deficit, acute stroke suspected. Comparison: Head CT from today, CTA of the head and neck dated 07/26/2025 Technique: CTA of the head was performed after the uneventful intravenousadministration of iodinated contrast. Reconstructed coronal and sagittalimages were also obtained. In addition, a 3-D volume rendered image wascreated for interpretation. Automated exposure control and iterative reconstruction methods wereused. FINDINGS: Vascular Findings: Atherosclerotic plaque is seen within the right carotid bifurcation andright carotid siphon. Probable moderate to severe stenosis within theright supraclinoid ICA again noted. The right common carotid, remainder ofthe right ICA, middle cerebral, anterior cerebral, vertebral, and posterior cerebral arteries are patentwithout abrupt cut off or aneurysmal dilation. Apparent occlusion of the left petrous, cavernous, and supraclinoid ICAwith reconstitution of the left ICA terminus. Occlusion of the leftcavernous and supraclinoid ICA may be new since 07/26/2025, or thesesegments may be patent but poorly opacified due to technical factors/contrast bolus timing. Left distal cervical ICAis somewhat diminutive . Left common carotid artery appears unremarkable.Left middle cerebral, anterior cerebral, vertebral, and posterior cerebralarteries are patent without abrupt cut off or aneurysmal dilation. Basilar artery appears patent and appears unremarkable. Non-vascular Findings: For description of nonvascular intracranial findings, please refer to thenoncontrast head CT performed the same date. No acute abnormality is identified within the visualized soft tissue orbony structures of the neck. The visualized lung apices are clear. CT Perfusion: CBF (<30%) volume: 0 mL Tmax (>6.0s) volume: 27 mL Mismatch volume: 27 mL Mismatch ratio: Infinite IMPRESSION: 1.Apparent occlusion of the left petrous, cavernous, and supraclinoid ICAwith reconstitution of the left ICA terminus. Left middle and anteriorcerebral arteries appear patent. Occlusion of the left petrous andcavernous ICA may be new since 07/26/2025, or these segments may be patent but poorly opacified due to technicalfactors/contrast bolus timing. 2.Otherwise, no intracranial large vessel occlusion is identified. 3.Probable moderate to severe stenosis within the right supraclinoidICA. 4.CT perfusion study demonstrates patchy regions of prolonged Tmax greaterthan 6 seconds within the left frontoparietal region (27 mL). There is alarger, more confluent region of minimally prolonged Tmax greater than 4seconds within the left MCA territory (approximately 169 mL). Findings may be related to alteredhemodynamics related to known left ICA occlusion. At risk ischemic tissuewithin the left MCA territory is not excluded. No territorial core infarctis demonstrated. Of note, similar findings were present on the CT perfusion study from 07/26/2025. Pleasecorrelate with findings on MRI. The above findings were discussed with Juju Vasques and Michela López,stroke rn urgent care, via telephone on 08/21/2025 5:33 PM EDT. Electronically Signed: Ashvin Stockton MD 08/21/2025 5:41 PM EDT Workstation ID: [id number] Ariel Washington MD IMG CT ORDERABLES Final Res ult * Telemetry Scan (08/21/2025 4:51 PM EDT) [facility] Onbase ECG ORDERABLES Final Result * (ABNORMAL) CBC Auto Differential (08/21/2025 4:37 PM EDT) WBC 9.63 3.40 - 10.80 10*3/mm3 08/21/2025 4:43 PM EDT [facility] RBC 3.38(L) 3.77 - 5.28 10*6/mm3 08/21/2025 4:43 PM EDT [facility] Hemoglobin 10.6(L) 12.0 - 15.9 g/dL 08/21/2025 4:43 PM EDT [facility] Hematocrit 31.1(L) 34.0 - 46.6 % 08/21/2025 4:43 PM EDT [facility] MCV 92.0 79.0 - 97.0 fL 08/21/2025 4:43 PM EDT [facility] MCH 31.4 26.6 - 33.0 pg 08/21/2025 4:43 PM EDT [facility] MCHC 34.1 31.5 - 35.7 g/dL 08/21/2025 4:43 PM EDT [facility] RDW 12.6 12.3 - 15.4 % 08/21/2025 4:43 PM EDT [facility] RDW-SD 43.0 37.0 - 54.0 fl 08/21/2025 4:43 PM EDT [facility] MPV 10.3 6.0 - 12.0 fL 08/21/2025 4:43 PM EDT [facility] Platelets 248 140 - 450 10*3/mm3 08/21/2025 4:43 PM EDT [facility] Neutrophil % 76.4(H) 42.7 - 76.0 % 08/21/2025 4:43 PM EDT [facility] Lymphocyte % 16.6(L) 19.6 - 45.3 % 08/[facility] Monocyte % 6.7 5.0 - 12.0 % 08/21/2025 4:43 [facility] Eosinophil % 0.0(L) 0.3 - 6.2 % 08/21/2025 4:43 [facility] Basophil % 0.1 0.0 - 1.5 % 08/21/2025 4:43 PM [facility] Immature Grans % 0.2 0.0 - 0.5 % 08/21/2025 4:43 PM [facility] Neutrophils, Absolute 7.35(H) 1.70 - 7.00 10*3/mm3 08/21/2025 4:43 PM [facility] Lymphocytes, Absolute 1.60 0.70 - 3.10 10*3/mm3 08/21/2025 4:43 [facility] Monocytes, Absolute 0.65 0.10 - 0.90 10*3/mm3 08/21/2025 4:43 PM [facility] Eosinophils, Absolute 0.00 0.00 - 0.40 10*3/mm3 08/21/2025 4:43 PM [facility] Basophils, Absolute 0.01 0.00 - 0.20 10*3/mm3 08/21/2025 4:43 PM [facility] Immature Grans, Absolute 0.02 0.00 - 0.05 10*3/mm3 08/21/2025 4:43 PM [facility] Blood Venipuncture / Unknown 08/21/2025 4:37 PM EDT 08/21/2025 4:40 PM EDT us Ariel Washington MD LAB BLOOD ORDERABLES Final Result [facility]
[address] [facility] [address] [place] [address], [place] * Light Blue Top (08/21/2025 4:37 PM EDT) Extra Tube Hold for add-ons. 08/21/2025 4:45 PM EDT [facility] Comment:Auto resulted Blood Venipuncture / Unknown 08/21/2025 4:37 PM EDT 08/21/2025 4:40 PM EDT Ariel Washington MD LAB BLOOD ORDER ONLY Final Result Performing Organization Address City/[facility] Co de Phone Number [facility]
[address] [facility] [address] [place] [address], [place] * Vasques Top (08/21/2025 4:37 PM EDT) Extra Tube Hold for add-ons. 08/21/2025 4:45 PM EDT [facility] Comment:Auto resulted. Blood Venipuncture / Unknown 08/21/2025 4:37 PM EDT 08/21/2025 4:40 PM EDT us Ariel Washington MD LAB BLOOD ORDER ONLY Final Result Performing Organization Address City/[facility] Co de Phone Number [facility]
[address] [facility] [address] [place] [address], [place] * Gold Top - SST (08/21/2025 4:37 PM EDT) Extra Tube Hold for add-ons. 08/21/2025 4:45 PM EDT [facility] Comment:Auto resulted. Blood Venipuncture / Unknown 08/21/2025 4:37 PM EDT 08/21/2025 4:40 PM EDT us Ariel Washington MD LAB BLOOD ORDER ONLY Final Result [facility]
[address] [facility] [address] [place] [address], [place] * Lavender Top (08/21/2025 4:37 PM EDT) Extra Tube hold for add-on 08/21/2025 4:45 PM EDT [facility] Comment:Auto resulted Blood Venipuncture / Unknown 08/21/2025 4:37 PM EDT 08/21/2025 4:40 PM EDT Ariel Washington MD LAB BLOOD ORDER ONLY Final Result Performing Organization Address City/[facility]/ZIP Co de Phone Number [facility]
[address] [facility] [address] [place] [address], [place] * Green Top (Gel) (08/21/2025 4:37 PM EDT) Extra Tube Hold for add-ons. 08/21/2025 4:45 PM EDT [facility] Comment:Auto resulted. Blood Venipuncture / Unknown 08/21/2025 4:37 PM EDT 08/21/2025 4:40 PM EDT us Ariel Washington MD LAB BLOOD ORDER ONLY Final Result Performing Organization Address City/[facility]/ZIP Co de Phone Number [facility]
[address] [facility] [address] [place] [address], [place] * (ABNORMAL) ALT (08/21/2025 4:37 PM EDT) ALT (SGPT) 136(H) 1 - 33 U/L 08/21/2025 4:59 PM EDT [facility] Blood Venipuncture / Unknown 08/21/2025 4:37 PM EDT 08/21/2025 4:40 PM EDT us Ariel Washington MD LAB BLOOD ORDERABLES Final Result Performing Organization Address City/[facility]/ZIP Co de Phone Number [facility]
[address] [place] [address], [place] * (ABNORMAL) AST (08/21/2025 4:37 PM EDT) AST (SGOT) 47(H) 1 - 32 U/L 08/21/2025 5:00 PM EDT [facility] Blood Venipuncture / Unknown 08/21/2025 4:37 PM EDT 08/21/2025 4:40 PM EDT Ariel Washington MD LAB BLOOD ORDERABLES Final Result Performing Organization Address [facility] Co de Phone Number [facility]
[address] [place] [address], [place] * aPTT (08/21/2025 4:37 PM EDT) PTT 28.8 22.0 - 39.0 seconds 08/21/2025 4:55 PM EDT [facility] Blood Venipuncture / Unknown 08/21/2025 4:37 PM EDT 08/21/2025 4:40 PM EDT Narrative [facility] - 08/21/2025 4:55 PM EDT PTT = The equivalent PTT values for the therapeutic range of heparin levels at 0.3 to 0.5 U/ml are 60 to 70 seconds. Ariel Washington MD LAB BLOOD ORDERABLES Final Result Performing Organization Address [facility] Co de Phone Number [facility]
[address] [place] [address], [place] * Protime-INR (08/21/2025 4:37 PM EDT) Protime 12.9 12.2 - 14.5 Seconds 08/21/2025 4:55 PM EDT [facility] INR 0.95 0.89 - 1.12 08/21/2025 4:55 PM EDT [facility] Blood Venipuncture / Unknown 08/21/2025 4:37 PM EDT 08/21/2025 4:40 PM EDT us Ariel Washington MD LAB BLOOD ORDERABLES Final Result [facility]
[address] [place] [address], * (ABNORMAL) POC CHEM 8 (08/21/2025 4:35 PM EDT) Glucose 116 70 - 130 mg/dL 08/21/2025 4:39 PM EDT [facility] BUN 23 8 - 26 mg/dL 08/21/2025 4:39 PM EDT [facility] Creatinine 1.50(H) 0.60 - 1.30 mg/dL 08/21/2025 4:39 PM EDT [facility] Sodium 137(L) 138 - 146 mmol/L 08/21/2025 4:39 PM EDT [facility] POC Potassium 4.8 3.5 - 4.9 mmol/L 08/21/2025 4:39 PM EDT [facility] Chloride 102 98 - 109 mmol/L 08/21/2025 4:39 PM EDT [facility] Total CO2 24 23 - 27 mmol/L 08/21/2025 4:39 PM EDT [facility] Hemoglobin 9.9(L) 12.0 - 17.0 g/dL 08/21/2025 4:39 PM EDT [facility] Comment:Serial Number: [id number] 3Operator: [id number] Hematocrit 29(L) 38 - 51 % 08/21/2025 4:39 PM EDT [facility] Ionized Calcium 1.17 1.15 - 1.30 mmol/L 08/21/2025 4:39 PM EDT [facility] eGFR 39.2(L) >60.0 mL/min/1.7 3 08/21/2025 4:39 PM EDT [facility] Blood 08/21/2025 4:35 PM EDT 08/21/2025 4:39 PM EDT us Ariel Washington MD POINT OF CARE TEST ORDERABL ES Final Result [facility]
[address] [place] [address], [place] * CT Head Without Contrast Stroke Protocol (08/21/2025 4:31 PM EDT) Anatomical Region Laterality Modality Head N/A Computed Tomogra phy 08/21/2025 4:37 PM EDT Impressions 08/21/2025 4:44 PM EDT Impression: No acute intracranial findings. Electronically Signed: Harry Bradford MD 08/21/2025 4:44 PM EDT Workstation ID: [id number] Narrative 08/21/2025 4:[address] HEAD WO CONTRAST STROKE PROTOCOL Date of Exam: 08/21/2025 4:25 PM EDT Indication: Neuro deficit, acute, stroke suspected Neuro Deficit, acute, Stroke suspected. Comparison: Brain MRI 07/26/2025. Technique: Axial CT images were obtained of the head without contrast administration. Reconstructed coronal images were also obtained. Automated exposure control and iterative construction methods were used. Scan Time: 4:29 p.m. Results discussed with Joana Matute ED at 4:38 p.m. Findings: No evidence of acute intracranial hemorrhage or mass effect. No extra-axial collection. The vasques white matter differentiation is preserved. Mild white matter changes in the left hemisphere corresponding to findings on prior brain MRI. Ventricles and sulci are symmetric. The mastoid air cells and paranasal sinuses are well aerated. Globes and extraocular muscles are unremarkable. No acute osseous abnormality. Procedure Note Harry Bradford MD - 08/21/2025 CT HEAD WO CONTRAST STROKE PROTOCOL Date of Exam: 08/21/2025 4:25 PM EDT Indication: Neuro deficit, acute, stroke suspected Neuro Deficit, acute, Stroke suspected. Comparison: Brain MRI 07/26/2025. Technique: Axial CT images were obtained of the head without contrastadministration. Reconstructed coronal images were also obtained.Automated exposure control and iterative construction methods were used. Scan Time: 4:29 p.m. Results discussed with Joana Matute ED at 4:38 p.m. Findings: No evidence of acute intracranial hemorrhage or mass effect. Noextra-axial collection. The vasques white matter differentiation ispreserved. Mild white matter changes in the left hemisphere correspondingto findings on prior brain MRI. Ventricles and sulci are symmetric. The mastoid air cells and paranasal sinuses are well aerated. Globes andextraocular muscles are unremarkable. No acute osseous abnormality. IMPRESSION: Impression: No acute intracranial findings. Electronically Signed: Harry Bradford MD 08/21/2025 4:44 PM EDT Workstation ID: [id number] us Ariel Washington MD IMG CT ORDERABLES Final Res ult * POC Glucose Once (08/21/2025 4:20 PM EDT) Glucose 110 70 - 130 mg/dL 08/22/2025 8:03 AM EDT [facility] Comment:Serial Number: [id number]: [id number] Blood 08/21/2025 4:20 PM EDT 08/22/2025 8:03 AM EDT us No Known Provider POINT OF CARE TEST ORDERABLES Final Result [facility]
[address] [address], [place] documented in this encounter Visit Diagnoses Diagnosis ICAO (internal carotid artery occlusion)- Primary Occlusion and stenosis of carotid artery without mention of cerebral infarction TIA (transient ischemic attack) Unspecified transient cerebral ischemia Type 2 diabetes mellitus with hyperlipidemia Essential hypertension Unspecified essential hypertension Type 2 diabetes mellitus with hyperglycemia Facial droop Facial weakness Transient ischemic attack (TIA) Unspecified transient cerebral ischemia Carotid stenosis, bilateral Occlusion and stenosis of carotid artery without mention of cerebral infarction Mixed hyperlipidemia documented in this encounter Admitting Diagnoses Diagnosis ICAO (internal carotid artery occlusion) Occlusion and stenosis of carotid artery without mention of cerebral infarction documented in this encounter Administered Medications Inactive Administered Medications - up to 3 most recent administrations Medication Order MAR Action Action Date Dose Rate Site acetaminophen (TYLENOL) 160 MG/5ML oral solution 650 mg 650 mg, Oral, Every 4 Hours PRN, Mild Pain, Starting on Thu08/21/25 at 2350, If given for fever, use fever parameter: [...] 4 Hours PRN, Mild Pain, Starting on Thu08/21/25 at 2350, If given for fever, use fever parameter: [...] 4 Hours PRN, Mild Pain, Starting on Thu08/21/25 at 2350, If given for fever, use fever parameter: [...] of 7-10, CPOT 5-8 aspirin chewable tablet 324 mg 324 mg, Oral, Once, On Thu08/21/25 at 1745, For 1 dose, Herbal/drug interaction: Avoid use with ginkgo biloba. Based on patient request - if ordered for moderate or severe pain, provider allows for administration of a medication prescribed for a lower pain scale. Do not exceed 4 grams of aspirin in a 24 hr period. If given for pain, use the following pain scale: Mild Pain = Pain Score of 1-3, CPOT 1-2 Moderate Pain = Pain Score of 4-6, CPOT 3-4 Severe Pain = Pain Score of 7-10, CPOT 5-8 Given 08/21/2025 5:34 PM EDT 324 mg aspirin chewable tablet 81 mg 81 mg, Oral, Daily, First dose on Thu08/22/25 at 0900, If patient fails dysphagia, UT option MUST be given. Do not exceed 4 grams of aspirin in a 24 hr period. If given for pain, use the following pain scale: Mild Pain = Pain Score of 1-3, CPOT 1-2 Moderate Pain = Pain Score of 4-6, CPOT 3-4 Severe Pain = Pain Score of 7-10, CPOT 5-8 Given 08/23/2025 9:47 AM EDT 81 mg Given 08/22/2025 10:07 AM EDT 81 mg aspirin suppository 300 mg 300 mg, Rectal, Daily, First dose on Thu08/22/25 at 0900, If patient fails dysphagia, UT option MUST be given. Do not exceed 4 grams of aspirin in a 24 hr period. If given for pain, use the following pain scale: Mild Pain = Pain Score of 1-3, CPOT 1-2 Moderate Pain = Pain Score of 4-6, CPOT 3-4 Severe Pain = Pain Score of 7-10, CPOT 5-8 atorvastatin (LIPITOR) tablet 40 mg 40 mg, Oral, Nightly, First dose on Thu08/21/25 at 2100, Avoid grapefruit juice. Given 08/22/2025 8:30 PM EDT 40 mg Given 08/21/2025 9:31 PM EDT 40 mg bisacodyl (DULCOLAX) EC tablet 5 mg 5 mg, Oral, Daily PRN, Constipation, Use if polyethylene glycol is ineffective, Starting on Thu08/21/25 at 2350, Use if no bowel movement after 12 hours. Swallow whole. Do not crush, split, or chew tablet. bisacodyl (DULCOLAX) suppository 10 mg 10 mg, Rectal, Daily PRN, Constipation, Use if bisacodyl oral is ineffective, Starting on Thu08/21/25 at 2350, Use if no bowel movement after 12 hours. Hold for diarrhea carvedilol (COREG) tablet 12.5 mg 12.5 mg, Oral, 2 Times Daily With Meals, First dose on Thu08/23/25 at 1030, Hold for SBP less than 100, DBP less than 60, or heart rate less than 50. If a dose is held, please contact the provider. Give with food. Given 08/23/2025 10:40 AM EDT 12.5 mg cetirizine (zyrTEC) tablet 10 mg 10 mg, Oral, Daily, First dose on Thu08/22/25 at 0900 Given 08/23/2025 9:46 AM EDT 10 mg Given 08/22/2025 10:07 AM EDT 10 mg clopidogrel (PLAVIX) tablet 300 mg 300 mg, Oral, Once, On Thu08/21/25 at 1745, For 1 dose Given 08/21/2025 5:35 PM EDT 300 mg clopidogrel (PLAVIX) tablet 75 mg 75 mg, Oral, Daily, First dose on Thu08/22/25 at 0900 Given 08/23/2025 9:46 AM EDT 75 mg Given 08/22/2025 10:07 AM EDT 75 mg dextrose (D50W) (25 g/50 mL) IV injection 25 g 25 g, Intravenous, Every 15 Minutes PRN, Low Blood Sugar, Blood Sugar Less Than 70, Starting on Thu08/22/25 at 0006, Blood sugar less than 70; patient has IV access - Unresponsive, NPO or Unable To Safely Swallow dextrose (GLUTOSE) oral gel 15 g 15 g, Oral, Every 15 Minutes PRN, Low Blood Sugar, Blood sugar less than 70, Starting on Thu08/22/25 at 0006, BS<70, Patient Alert, Is not NPO, Can safely swallow. Given 08/22/2025 2:37 AM EDT 15 g Gadopiclenol (VUEWAY) injection 6 mL 6 mL, Intravenous, Once in Imaging, On Thu08/23/25 at 0945, For 1 dose, Administer undiluted as intravenous bolus at 2 ml/sec. Flush with NS after injection. Given 08/23/2025 8:48 AM EDT 6 mL glucagon (GLUCAGEN) injection 1 mg 1 mg, Intramuscular, Every 15 Minutes PRN, Low Blood Sugar, Blood Glucose Less Than 70, Starting on Thu08/22/25 at 0006, Blood Glucose Less Than 70 - Patient Without IV Access - Unresponsive, NPO or Unable To Safely Swallow Reconstitute powder for injection by adding 1 mL of night warehouse selector-supplied sterile diluent or sterile water for injection to a vial containing 1 mg of the drug, to provide solutions containing 1 mg/mL. Shake vial gently to dissolve. heparin (porcine) 5000 UNIT/ML injection 5,000 Units 5,000 Units, Subcutaneous, Every 8 Hours Scheduled, First dose on Thu08/22/25 at 0045, Indications: VTE ProphylaxisIndications:VTE Prophylaxis Given 08/23/2025 5:16 AM EDT 5,000 Units Left Upper Abdomen Given 08/22/2025 9:21 PM EDT 5,000 Units L eft Lower Abdomen Given 08/22/2025 3:27 PM EDT 5,000 Units L eft Lower Abdomen insulin glargine (LANTUS, SEMGLEE) injection 20 Units 20 Units, Subcutaneous, Daily, First dose on Thu08/22/25 at 0900, Do not hold basal insulin without an order. Consider requesting a dose edit, if needed. (BK) Given 08/23/2025 9:47 AM EDT 20 Units Right Arm Given 08/22/2025 10:07 AM EDT 20 Units L eft Lower Abdomen Insulin Lispro (humaLOG) injection 2-7 Units 2-7 Units, Subcutaneous, 4 Times Daily With Meals & Nightly, First dose (after last modification) on Thu08/22/25 at 1200, Correction Insulin - Low Dose - Total [...] mg/dL - 7 units & Call Provider ([facility]) Caution: Look alike/sound alike drug alert([facility]) iopamidol (ISOVUE-370) 76 % injection 100 mL 100 mL, Intravenous, Once in Imaging, On Thu08/21/25 at 1715, For 1 dose Given 08/21/2025 4:52 PM EDT 115 mL magnesium sulfate 4g/100mL (PREMIX) infusion 4 g, Intravenous, Administer over 4 Hours, Once, On Thu08/22/25 at 1915, For 1 dose New Bag 08/22/2025 8:30 PM EDT 4 g pantoprazole (PROTONIX) injection 40 mg 40 mg, Intravenous, Every Supervisor Compressed Yeast, First dose on Thu08/22/25 at 0600, Dilute with 10 mL of 0.9% NaCl and give IV push over 2 minutes., Indications: Gastroesophageal Reflux DiseaseIndications:Gastroesophageal Reflux Disease Given 08/23/2025 5:16 AM EDT 40 mg Given 08/22/2025 5:44 AM EDT 40 mg polyethylene glycol (MIRALAX) packet 17 g 17 g, Oral, Daily PRN, Constipation, Use if senna-docusate is ineffective, Starting on Thu08/21/25 at 2350, Use if no bowel movement after 12 hours. Mix in 6-8 ounces of water. Use 4-8 ounces of water, tea, or juice for each 17 gram dose. sennosides-docusate (PERICOLACE) 8.6-50 MG per tablet 2 tablet 2 tablet, Oral, 2 Times Daily PRN, Constipation, Starting on Thu08/21/25 at 2350, Start bowel management regimen if patient has not had a bowel movement after 12 hours. sodium chloride 0.9 % bolus 1,000 mL 1,000 mL, Intravenous, at 500 mL/hr, Administer over 2 Hours, Once, On Thu08/22/25 at 0015, For 1 dose New Bag 08/22/2025 12:01 AM EDT 1,000 mL 500 mL/hr sodium chloride 0.9 % flush 10 mL 10 mL, Intravenous, As Needed, Line Care, Starting on Thu08/21/25 at 1620 sodium chloride 0.9 % flush 10 mL 10 mL, Intravenous, Every 12 Hours Scheduled, First dose on Thu08/22/25 at 0045 Given 08/23/2025 9:48 AM EDT 10 mL Given 08/22/2025 8:30 PM EDT 10 mL Given 08/22/2025 10:10 AM EDT 10 mL sodium chloride 0.9 % infusion 100 mL/hr, Intravenous, Continuous, Starting on Thu08/22/25 at 0015, For 1 day New Bag 08/22/2025 5:42 AM EDT 100 mL/hr 100 mL/hr New Bag 08/22/2025 12:32 AM EDT 100 mL/hr 100 mL/hr venlafaxine XR (EFFEXOR-XR) 24 hr capsule 75 mg 75 mg, Oral, Daily, First dose on Thu08/22/25 at 0900, Do not crush or chew the capsules or tablets. The drug may not work as designed if the capsule or tablet is crushed or chewed. Swallow whole. Given 08/23/2025 9:46 AM EDT 75 mg Given 08/22/2025 10:07 AM EDT 75 mg documented in this encounter Active and Recently Administered Medications Times are shown in EDT. Scheduled Medication Order 08/21/2025 08/22/2025 08/23/2025 aspirin chewable tablet 324 mg (COMPLETED) 324 mg, Oral, Once, On Thu08/21/25 at 1745, For 1 dose, Herbal/drug interaction: Avoid use with ginkgo biloba. Based on patient request - if ordered for moderate or severe pain, provider allows for administration of a medication prescribed for a lower pain scale. Do not exceed 4 grams of aspirin in a 24 hr period. If given for pain, use the following pain scale: Mild Pain = Pain Score of 1-3, CPOT 1-2 Moderate Pain = Pain Score of 4-6, CPOT 3-4 Severe Pain = Pain Score of 7-10, CPOT 5-8 9491 (Given - Provider: Terri Raygoza RN) aspirin chewable tablet 81 mg(Linked Group 1) 81 mg, Oral, Daily, First dose on Thu08/22/25 at 0900, If patient fails dysphagia, UT option MUST be given. Do not exceed 4 grams of aspirin in a 24 hr period. If given for pain, use the following pain scale: Mild Pain = Pain Score of 1-3, CPOT 1-2 Moderate Pain = Pain Score of 4-6, CPOT 3-4 Severe Pain = Pain Score of 7-10, CPOT 5-8 1007 (Given - Provider: Valerie Eddy RN) 0947 (Given - Provider: Rose Regalado RN) aspirin suppository 300 mg(Linked Group 1) 300 mg, Rectal, Daily, First dose on Thu08/22/25 at 0900, If patient fails dysphagia, UT option MUST be given. Do not exceed 4 grams of aspirin in a 24 hr period. If given for pain, use the following pain scale: Mild Pain = Pain Score of 1-3, CPOT 1-2 Moderate Pain = Pain Score of 4-6, CPOT 3-4 Severe Pain = Pain Score of 7-10, CPOT 5-8 1007 (Not Given: See Alt - Provider: Valerie Eddy RN) 0947 (Not Given: See Alt - Provider: Rose Regalado RN) atorvastatin (LIPITOR) tablet 40 mg 40 mg, Oral, Nightly, First dose on Thu08/21/25 at 2100, Avoid grapefruit juice. 2130 (Given - Provider: Alice Arriola RN) 2029 (Given - Provider: Niki Hoffmann RN) carvedilol (COREG) tablet 12.5 mg 12.5 mg, Oral, 2 Times Daily With Meals, First dose on Thu08/23/25 at 1030, Hold for SBP less than 100, DBP less than 60, or heart rate less than 50. If a dose is held, please contact the provider. Give with food. 1040 (Given - Provider: Rose Regalado, CORY) cetirizine (zyrTEC) tablet 10 mg 10 mg, Oral, Daily, First dose on Thu08/22/25 at 0900 1007 (Given - Provider: Valerie Eddy RN) 0946 (Given - Provider: Rose Regalado RN) clopidogrel (PLAVIX) tablet 300 mg (COMPLETED) 300 mg, Oral, Once, On Thu08/21/25 at 1745, For 1 dose 1735 (Given - Provider: Terri Raygoza RN) clopidogrel (PLAVIX) tablet 75 mg 75 mg, Oral, Daily, First dose on Thu08/22/25 at 0900 1007 (Given - Provider: Valerie Eddy, RN) 0946 (Given - Provider: Rose Regalado, RN) Gadopiclenol (VUEWAY) injection 6 mL (COMPLETED) 6 mL, Intravenous, Once in Imaging, On Thu08/23/25 at 0945, For 1 dose, Administer undiluted as intravenous bolus at 2 ml/sec. Flush with NS after injection. 0848 (Given - Provider: Shikha Araujo) heparin (porcine) 5000 UNIT/ML injection 5,000 Units 5,000 Units, Subcutaneous, Every 8 Hours Scheduled, First dose on Thu08/22/25 at 0045, Indications: VTE Prophylaxis 0002 (Given - Provider: Alice Arriola, CORY)0544 (Given - Provider: Alice Arriola, RN)1527 (Given - Provider: Valerie Eddy, RN)2121 (Given - Provider: Niki Hoffmann, RN) 0516 (Given - Provider: Niki Hoffmann, RN) insulin glargine (LANTUS, SEMGLEE) injection 20 Units 20 Units, Subcutaneous, Daily, First dose on Thu08/22/25 at 0900, Do not hold basal insulin without an order. Consider requesting a dose edit, if needed. ([facility]) 1007 (Given - Provider: Valerie Eddy RN) 0947 (Given - Provider: Rose Regalado, RN) Insulin Lispro (humaLOG) injection 2-7 Units 2-7 Units, Subcutaneous, 4 Times Daily With Meals & Nightly, First dose (after last modification) on Thu08/22/25 at 1200, Correction Insulin - Low Dose - Total [...] mg/dL - 7 units & Call Provider ([facility]) Caution: Look alike/sound alike drug alert([facility]) 1229 (Not Given - Provider: Valerie Eddy RN - Reason: Order parameters not met)1712 (Not Given - Provider: Valerie Eddy RN - Reason: Order parameters not met)2026 (Not Given - Provider: Niki Hoffmann RN - Reason: Order parameters not met) 0950 (Not Given - Provider: Rose Regalado RN - Reason: Order parameters not met)1200 (Due) iopamidol (ISOVUE-370) 76 % injection 100 mL (COMPLETED) 100 mL, Intravenous, Once in Imaging, On Thu08/21/25 at 1715, For 1 dose 1652 (Given - Provider: Carmel Hyman) lisinopril (PRINIVIL,ZESTRIL) tablet 10 mg 10 mg, Oral, Daily, First dose on Thu08/22/25 at 0900, Hold for SBP less than 100, DBP less than 60., On hold since Thu08/21/2025 at 2350 until manually unheld 2350 (Held by provider - Provider: Beto Mars MD - Reason: Hold For Procedure) 0900 (Dose Auto Held) 0900 (Dose Auto Held)1439 (Unheld by provider - Provider: Automatic Discharge Provider) magnesium sulfate 4g/100mL (PREMIX) infusion (COMPLETED) 4 g, Intravenous, Administer over 4 Hours, Once, On Thu08/22/25 at 1915, For 1 dose 2030 (New Bag - Provider: Niki Hoffmann RN) 0950 (Stopped - Provider: Rose Regalado RN - Comment: NOT INFUSING AT THIS TIME) pantoprazole (PROTONIX) injection 40 mg 40 mg, Intravenous, Every Supervisor Compressed Yeast, First dose on Thu08/22/25 at 0600, Dilute with 10 mL of 0.9% NaCl and give IV push over 2 minutes., Indications: Gastroesophageal Reflux Disease 0544 (Given - Provider: Alice Arriola, RN) 0516 (Given - Provider: Niki Hoffmann, RN) sodium chloride 0.9 % bolus 1,000 mL (COMPLETED) 1,000 mL, Intravenous, at 500 mL/hr, Administer over 2 Hours, Once, On Thu08/22/25 at 0015, For 1 dose 0001 (New Bag - Provider: Alice Arriola, CORY) sodium chloride 0.9 % flush 10 mL 10 mL, Intravenous, Every 12 Hours Scheduled, First dose on Thu08/22/25 at 0045 0001 (Given - Provider: Alice Arriola, CORY)1010 (Given - Provider: Valerie Eddy, RN)2030 (Given - Provider: Niki Hoffmann, RN) 0948 (Given - Provider: Rose Regalado, RN) tamsulosin (FLOMAX) 24 hr capsule 0.4 mg 0.4 mg, Oral, Daily, First dose on Thu08/22/25 at 0900, Do not crush or chew the capsules or tablets. The drug may not work as designed if the capsule or tablet is crushed or chewed. Swallow whole. If patient unable to swallow whole, contact pharmacy for alternative., On hold since Thu08/21/2025 at 2350 until manually unheld 2350 (Held by provider - Provider: Beto Mars MD - Reason: Hold For Procedure) 0900 (Dose Auto Held) 0900 (Dose Auto Held)1439 (Unheld by provider - Provider: Automatic Discharge Provider) venlafaxine XR (EFFEXOR-XR) 24 hr capsule 75 mg 75 mg, Oral, Daily, First dose on Thu08/22/25 at 0900, Do not crush or chew the capsules or tablets. The drug may not work as designed if the capsule or tablet is crushed or chewed. Swallow whole. 1007 (Given - Provider: Valerie Eddy RN) 0946 (Given - Provider: Rose Regalado, CORY) Continuous Medication Order 08/21/2025 08/22/2025 08/23/2025 sodium chloride 0.9 % infusion 100 mL/hr, Intravenous, Continuous, Starting on Thu08/22/25 at 0015, For 1 day 0032 (New Bag - Provider: Alice Arriola RN)0542 (New Bag - Provider: Alice Arriola, CORY) 0026 (Stopped - Provider: Niki Hoffmann, RN - Comment: [Order ends at this time. Document the following action when infusion is complete: Stopped]) PRN Medication Order 08/21/2025 08/22/2025 08/23/2025 acetaminophen (TYLENOL) 160 MG/5ML oral solution 650 mg(Linked Group 2) 650 mg, Oral, Every 4 Hours PRN, Mild Pain, Starting on Thu08/21/25 at 2350, If given for fever, use fever parameter: [...] 4 Hours PRN, Mild Pain, Starting on Thu08/21/25 at 2350, If given for fever, use fever parameter: [...] 4 Hours PRN, Mild Pain, Starting on Thu08/21/25 at 2350, If given for fever, use fever parameter: [...] bisacodyl (DULCOLAX) EC tablet 5 mg(Linked Group 3) 5 mg, Oral, Daily PRN, Constipation, Use if polyethylene glycol is ineffective, Starting on Thu08/21/25 at 2350, Use if no bowel movement after 12 hours. Swallow whole. Do not crush, split, or chew tablet. bisacodyl (DULCOLAX) suppository 10 mg(Linked Group 3) 10 mg, Rectal, Daily PRN, Constipation, Use if bisacodyl oral is ineffective, Starting on Thu08/21/25 at 2350, Use if no bowel movement after 12 hours. Hold for diarrhea Calcium Replacement - Follow Nurse / BPA Driven Protocol Open Order & Select [facility] Electrolyte Replacement Protocol Algorithm to View Details dextrose (D50W) (25 g/50 mL) IV injection 25 g 25 g, Intravenous, Every 15 Minutes PRN, Low Blood Sugar, Blood Sugar Less Than 70, Starting on Thu08/22/25 at 0006, Blood sugar less than 70; patient has IV access - Unresponsive, NPO or Unable To Safely Swallow dextrose (GLUTOSE) oral gel 15 g 15 g, Oral, Every 15 Minutes PRN, Low Blood Sugar, Blood sugar less than 70, Starting on Thu08/22/25 at 0006, BS<70, Patient Alert, Is not NPO, Can safely swallow. 0237 (Given - Provider: Zuleima Arriola, RN) glucagon (GLUCAGEN) injection 1 mg 1 mg, Intramuscular, Every 15 Minutes PRN, Low Blood Sugar, Blood Glucose Less Than 70, Starting on Thu08/22/25 at 0006, Blood Glucose Less Than 70 - Patient Without IV Access - Unresponsive, NPO or Unable To Safely Swallow Reconstitute powder for injection by adding 1 mL of night warehouse selector-supplied sterile diluent or sterile water for injection to a vial containing 1 mg of the drug, to provide solutions containing 1 mg/mL. Shake vial gently to dissolve. Magnesium Cardiology Dose Replacement - Follow Nurse / BPA Driven Protocol Open Order & Select [facility] Electrolyte Replacement Protocol Algorithm to View Details Phosphorus Replacement - Follow Nurse / BPA Driven Protocol Open Order & Select [facility] Electrolyte Replacement Protocol Algorithm to View Details polyethylene glycol (MIRALAX) packet 17 g(Linked Group 3) 17 g, Oral, Daily PRN, Constipation, Use if senna-docusate is ineffective, Starting on Thu08/21/25 at 2350, Use if no bowel movement after 12 hours. Mix in 6-8 ounces of water. Use 4-8 ounces of water, tea, or juice for each 17 gram dose. Potassium Replacement - Follow Nurse / BPA Driven Protocol Open Order & Select [facility] Electrolyte Replacement Protocol Algorithm to View Details sennosides-docusate (PERICOLACE) 8.6-50 MG per tablet 2 tablet(Linked Group 3) 2 tablet, Oral, 2 Times Daily PRN, Constipation, Starting on Thu08/21/25 at 2350, Start bowel management regimen if patient has not had a bowel movement after 12 hours. sodium chloride 0.9 % flush 10 mL 10 mL, Intravenous, As Needed, Line Care, Starting on Thu08/21/25 at 1620 sodium chloride 0.9 % flush 10 mL 10 mL, Intravenous, As Needed, Line Care, Starting on Thu08/21/25 at 2349 sodium chloride 0.9 % infusion 40 mL 40 mL, Intravenous, at 100 mL/hr, As Needed, Line Care, Starting on Thu08/21/25 at 2349, Following administration of an IV intermittent medication, flush line with 40mL NS at 100mL/hr. Linked Groups Order Group 1: aspirin chewable tablet 81 mgJump to med 81 mg, Oral, Daily, First dose on Thu08/22/25 at 0900, If patient fails dysphagia, UT option MUST be given. Do not exceed 4 grams of aspirin in a 24 hr period. If given for pain, use the following pain scale: Mild Pain = Pain Score of 1-3, CPOT 1-2 Moderate Pain = Pain Score of 4-6, CPOT 3-4 Severe Pain = Pain Score of 7-10, CPOT 5-8 Or aspirin suppository 300 mgJump to med 300 mg, Rectal, Daily, First dose on Thu08/22/25 at 0900, If patient fails dysphagia, UT option MUST be given. Do not exceed 4 grams of aspirin in a 24 hr period. If given for pain, use the following pain scale: Mild Pain = Pain Score of 1-3, CPOT 1-2 Moderate Pain = Pain Score of 4-6, CPOT 3-4 Severe Pain = Pain Score of 7-10, CPOT 5-8 Group 2: acetaminophen (TYLENOL) tablet 650 mgJump to med 650 mg, Oral, Every 4 Hours PRN, Mild Pain, Starting on Thu08/21/25 at 2350, If given for fever, use fever parameter: [...] 4 Hours PRN, Mild Pain, Starting on Thu08/21/25 at 2350, If given for fever, use fever parameter: [...] 4 Hours PRN, Mild Pain, Starting on Thu08/21/25 at 2350, If given for fever, use fever parameter: [...] = Pain Score of 7-10, CPOT 5-8 Group 3: sennosides-docusate (PERICOLACE) 8.6-50 MG per tablet 2 tabletJump to med 2 tablet, Oral, 2 Times Daily PRN, Constipation, Starting on Thu08/21/25 at 2350, Start bowel management regimen if patient has not had a bowel movement after 12 hours. And polyethylene glycol (MIRALAX) packet 17 gJump to med 17 g, Oral, Daily PRN, Constipation, Use if senna-docusate is ineffective, Starting on Thu08/21/25 at 2350, Use if no bowel movement after 12 hours. Mix in 6-8 ounces of water. Use 4-8 ounces of water, tea, or juice for each 17 gram dose. And bisacodyl (DULCOLAX) EC tablet 5 mgJump to med 5 mg, Oral, Daily PRN, Constipation, Use if polyethylene glycol is ineffective, Starting on Thu08/21/25 at 2350, Use if no bowel movement after 12 hours. Swallow whole. Do not crush, split, or chew tablet. And bisacodyl (DULCOLAX) suppository 10 mgJump to med 10 mg, Rectal, Daily PRN, Constipation, Use if bisacodyl oral is ineffective, Starting on Thu08/21/25 at 2350, Use if no bowel movement after 12 hours. Hold for diarrhea documented in this encounter Care Teams Finishing Range Operator Relationship Specialty Start Date End Date Araceli Doyle MD PCP - General Family Medicine 03/19/22 documented as of this encounter
--- OUTSIDE RECORDS SUMMARY | 2025-08-28 13:00 | XMS_ITS | Encounter Summary ---
Author Organization [facility] Address [address] [place] [address] Care Team Providers Care Dialysis Technician Name Role Phone Araceli Doyle MD Primary Care Provider [phone] Encounter Details Date Type Department Care Team (Latest Contact Info) Description 08/28/2025 1:00 PM EDT Office Visit [facility] UROLOGY [address] [facility] [address] [place] [address] Incomplete bladder emptying (Primary Dx) Social History Tobacco Use Types Packs/Day Years Used Date Smoking Tobacco: Never Passive Smoke Exposure: Past Smokeless Tobacco: Never Alcohol Use Standard Drinks/Week Comments Not Currently 0 (1 standard drink = 0.6 oz pur e alcohol) [facility] Utilities Answer Date Recorded In the past 12 months has [employer], gas, oil, or water [employer] threatened to shut off services in your [...] care, and heating? Not very hard 08/22/2025 [facility] [place] [facility] - Occupational Stress [...] GED or equivalent No 08/22/2025 Preferred Language American 08/22/2025 PHQ-2 Answer Date Recorded Patient Health Questionnaire-2 Score 0 08/22/2025 Comments Unknown Sex and Gender Information Value Date Recorded Sex Assigned at Not on file Legal Sex Female 10:07 AM EDT Gender Identity Not on file Sexual Orientation Not on file documented as of this encounter Progress Notes * Katrina Erickson - 08/28/2025 1:00 PM EDT Urodynamics study completed on 08/28/2025. Performed by [facility] nurse. Report pending. documented in this encounter Plan of Treatment Upcoming Encounters Date Type Department Care Team (Late st Contact Info) Description 09/27/2025 10:00 AM EST Office Visit [facility] NEUROLOGY [address] [facility] [address] [place] [address] Charu Hernandez, FISH CLEANER MACHINE TENDER [address] [facility] [address] [place] [address] 11/01/2025 11:00 AM EST Office Visit [facility] UROLOGY [address] [facility] [address] [place] [address] Demi Palomares PA-C [address] [facility] [address] [place] [address] 11/20/2025 2:00 PM EST Appointment [facility] CARDIOVASCULAR LAB [address] [facility] 3rd [place] [phone] 11/29/2025 9:30 AM EST Office Visit [facility] CARDIOLOGY [address] [place] [address] Alaina Hayes, FISH CLEANER MACHINE TENDER [address] [place] [address] 12/13/2025 1:45 PM EST Office Visit [facility] ENDOCRINOLOGY [address] [address] Katrina Garrett MD [address] [phone] Scheduled Procedures Name Priority Associated Diagnoses Date/Ti me CV CAROTID CEREBRAL ANGIOGRA M BILATERAL History of TIA (transient ischemic attack) documented as of this encounter Visit Diagnoses Diagnosis Incomplete bladder emptying- Primary documented in this encounter Care Teams Dialysis Technician Relationship Specialty Start Date End Date Araceli Doyle MD PCP - General Family Medicine 03/19/22 documented as of this encounter
--- OUTSIDE RECORDS SUMMARY | 2025-09-11 12:00 | XMS_ITS | Encounter Summary ---
Author Organization [facility] Address [address] [place] [id number] Care Team Providers Care Cut And Cover Line Worker Name Role Phone Araceli Doyle MD Primary Care Provider [phone] Reason for Referral * Cardiac (Routine) - Pending Review Specialty Diagnoses / Procedures Referred By Owen t Referred To Contact Diagnoses History of TIA (transient ischemic attack) Procedures Tilt Table Maulik Yun MD [address] [address] Phone: tel: fax: Referral ID Status Reason Start Date Expiration Date V isits Requested Visits Authorized [id number] Pending Review 09/11/2025 12/11/2026 1 1 Reason for Visit * Reason Comments Hospital Follow Up Visit Encounter Details Date Type Department Care Team (Late st Contact Info) Description 09/11/2025 12:00 PM EDT Office Visit [facility] NEUROSURGERY [address] [phone] Maulik Yun MD [address] [facility] [place] [address] History of TIA (transient ischemic attack) (Primary Dx) Social History Tobacco Use Types Packs/Day Years Used Date Smoking Tobacco: Never Passive Smoke Exposure: Past Smokeless Tobacco: Never Tobacco Cessation:Counseling Given: Not Answered Alcohol Use Standard Drinks/Week Comments Not Currently 0 (1 standard drink = 0.6 oz pur e alcohol) [facility] Utilities Answer Date Recorded In the [...] care, and heating? Not very hard 08/22/2025 [facility] - Occupational [...] GED or equivalent No 08/22/2025 Preferred Language Azeri 08/22/2025 PHQ-2 Answer Date Recorded Patient Health Questionnaire-2 Score 0 08/22/2025 Comments Unknown Sex and Gender Information Value Date Recorded Sex Assigned at Not on file Legal Sex Female 10:07 AM EDT Gender Identity Not on file Sexual Orientation Not on file documented as of this encounter Last Filed Vital Signs Vital Sign Reading Time Taken Comments Blood Pressure - - Pulse - - Temperature 36.1 C (97 F) 09/11/2025 12:34 PM EDT Respiratory Rate - - Oxygen Saturation - - Inhaled Oxygen Concentration - - Weight 72.9 kg (160 lb 12.8 oz) 025 12:34 PM EDT Height 170.2 cm (5' 7.01 ) 09/11/2025 1 2:34 PM EDT Body Mass Index 25.18 09/11/2025 12:34 PM EDT documented in this encounter Progress Notes * Maulik Yun MD - 09/11/2025 12:00 PM EDT NAME: KYALEE HOFF DOS: 09/11/2025 : 1965 PCP: Araceli Doyle MD Chief Complaint: Chief Complaint Patient presents with Hospital Follow Up Visit History of Present Illness: 60 y.o. female I saw this 60-year-old female with a history of 1. Medication noncompliance 2. Severe intracranial atherosclerosis right supraclinoid ICA calcific in nature 3. Excellent collaterals blood pressures 140 today with no evidence of neurologic deficits 4. Diabetes She has had no significant episodes of recurrent symptomatology since her last visit she is currently taking aspirin Plavix and high-dose statin PMHX Allergies: Allergies Allergen Reactions Codeine GI Intolerance Vomiting Sulfa Antibiotics GI Intolerance vomiting Medications Current Outpatient Medications: aspirin 81 MG chewable tablet, Chew 1 tablet Daily., Disp: 90 tablet, Rfl: 2 atorvastatin (LIPITOR) 80 MG tablet, Take 1 tablet by mouth Daily., Disp: , Rfl: carvedilol (COREG) 12.5 MG tablet, Take 1 tablet by mouth 2 (Two) Times a Day With Meals for 30 days., Disp: 60 tablet, Rfl: 1 cetirizine (zyrTEC) 10 MG tablet, Take 1 tablet by mouth Daily., Disp: , Rfl: clopidogrel (PLAVIX) 75 MG tablet, Take 1 tablet by mouth Daily., Disp: 90 tablet, Rfl: 2 Continuous Glucose Sensor (FreeStyle Jovita 3 Plus Sensor), Use as directed every 15 days, Disp: 6 each, Rfl: 0 Continuous Glucose Sensor (FreeStyle Jovita 3 Sensor) [facility], Inject 1 each under the skin into the appropriate area as directed Every 14 (Fourteen) Days., Disp: 2 each, Rfl: 6 estradiol (VAGIFEM) 10 MCG tablet vaginal tablet, Insert 1 tablet into the vagina 2 (Two) Times a Week., Disp: , Rfl: ezetimibe (Zetia) 10 MG tablet, Take 1 tablet by mouth Daily., Disp: 30 tablet, Rfl: 11 Insulin Glargine (BASAGLAR KWIKPEN) 100 UNIT/ML injection [...] tablet by mouth Daily., Disp: , Rfl: tamsulosin (FLOMAX) 0.4 MG capsule 24 hr capsule, Take 1 capsule by mouth Daily., Disp: 30 capsule,Rfl: 1 venlafaxine XR (EFFEXOR-XR) 75 MG 24 hr capsule, Take 1 capsule by mouth Daily., Disp: , Rfl: Past Medical History: Past Medical History: Diagnosis Date Diabetic retinopathy associated with type 2 diabetes mellitus Essential hypertension Hyperlipidemia Hypertension Otitis media 04/20/2024 Type 2 diabetes mellitus Vitamin D deficiency Past Surgical History: Past Surgical History: Procedure Laterality Date BREAST AUGMENTATION CHOLECYSTECTOMY TUBAL ABDOMINAL LIGATION Social Hx: Social History Tobacco Use Smoking status: Never Passive exposure: Past Smokeless tobacco: Never Vaping Use Vaping status: Never Used Substance Use Topics Alcohol use: Not Currently Drug use: Never Family Hx: Family History Problem Relation Name Age of Onset Diabetes Mother Jenni Callahan Coronary artery disease Mother Jenni Callahan Coronary artery disease Father Yadiel Callahan Hypertension Father Yadiel Callahan Diabetes Father Yadiel Callahan Heart attack Father Yadiel Callahan Cancer Maternal Grandmother [place] Heart attack Maternal Grandmother [place] Review of Systems: Review of Systems Constitutional: Negative for activity change, appetite change, chills, diaphoresis, fatigue, fever and unexpected weight change. HENT: Negative for congestion, dental problem, drooling, ear discharge, ear pain, facial swelling, hearing loss, mouth sores, nosebleeds, postnasal drip, rhinorrhea, sinus pressure, sinus pain, sneezing, sore throat, tinnitus, trouble swallowing and voice change. Eyes: Negative for photophobia, pain, discharge, redness, itching and visual disturbance. Respiratory: Negative for apnea, cough, choking, chest tightness, shortness of breath, wheezing andstridor. Cardiovascular: Negative for chest pain, palpitations and leg swelling. Gastrointestinal: Negative for abdominal distention, abdominal pain, anal bleeding, blood in stool,constipation, diarrhea, nausea, rectal pain and vomiting. Endocrine: Negative for cold intolerance, heat intolerance, polydipsia, polyphagia and polyuria. Genitourinary: Negative for decreased urine volume, difficulty urinating, dyspareunia, dysuria, enuresis, flank pain, frequency, genital sores, hematuria, menstrual problem, pelvic pain, urgency, vaginal bleeding, vaginal discharge and vaginal pain. Musculoskeletal: Negative for arthralgias, back pain, gait problem, joint swelling, myalgias, neck pain and neck stiffness. Skin: Negative for color change, pallor, rash and wound. Allergic/Immunologic: Negative for environmental allergies, food allergies and immunocompromised state. Neurological: Negative for dizziness, tremors, seizures, syncope, facial asymmetry, speech difficulty, weakness, light-headedness, numbness and headaches. Hematological: Negative for adenopathy. Does not bruise/bleed easily. Psychiatric/Behavioral: Negative for agitation, behavioral problems, confusion, decreased concentration, dysphoric mood, hallucinations, self-injury, sleep disturbance and suicidal ideas. The patientis not nervous/anxious and is not hyperactive. I have reviewed this note template and all pertinent parts of the review of systems social, family history, surgical history and medication list Physical Examination: Vitals: 09/11/25 1234 Temp: 97 ??F (36.1 ??C) General Appearance: Well developed, well nourished, well groomed, alert, and cooperative. Neurological examination: Neurological Exam She is wide-awake alert and follows commands GCS is 15 Cranial nerves intact No motor drift Gait and station are normal Review of Imaging/DATA: Personally reviewed and interpreted a MRI MRA and all of her studies significant perfusion defects are seen with left-sided internal carotid occlusion she has bifurcation disease on the right CTP shows left time to peak max discrepancies Diagnoses/Plan: Ms. Hoff is a 60 y.o. female 1. Severe intracranial atherosclerosis 2. Medical noncompliance 3. She was na??ve to therapy I explained the risk benefits and expected outcome of major elective surgery for their problem, complications from approach, and infection, the risk of neurologic implications after surgery as well as need for repeat surgeries and most importantly failure to achieve quality of life improvement fromthe surgery to the patient. She is overall stable right now I think she can be manage medically butwe do need to address whether or not she is a candidate for any sort of revascularization After extensive discussion shared decision making plan will be 1. I would recommend a diagnostic catheter angiogram for further workup 2. Continuation dual antiplatelet therapy she is not to be removed from any of these therapies for the time being 3. Continue high dose statin therapy she should be considered and has a visit with her cardiologistfor Repatha as she does have significant intracranial iCAD 4. Permissive hypertension is okay I explained the signs and symptoms look for and how to manage symptomatology she will call me if any that happens but we will set up for diagnostic angiogram documented in this encounter Plan of Treatment Upcoming Encounters Date Type Department Care Team (Late st Contact Info) Description 09/27/2025 10:00 AM EST Office Visit [facility] NEUROLOGY [address] [facility] [address] [place] [address] Charu Hernandez, SLASHER MACHINE OPERATOR [address] [facility] [address] [address] 11/01/2025 11:00 AM EST Office Visit [facility] UROLOGY [address] [facility] [address] [place] [phone] Demi Palomares PA-C [address] [facility] [address] [place], [place] [id number] 11/20/2025 2:00 PM EST Appointment [facility] CARDIOVASCULAR LAB [address] [facility] 3rd [place] [phone] 11/29/2025 9:30 AM EST Office Visit [facility] CARDIOLOGY [address] [place] [address] Alaina Hayes, SLASHER MACHINE OPERATOR [address] [place], [place] [id number] 12/13/2025 1:45 PM EST Office Visit [facility] ENDOCRINOLOGY [address] [phone] Katrina Garrett MD [address] [facility] [address] [place] [phone] Scheduled Orders Name Type Priority Associated Diagnoses Orde r Schedule Tilt Table Cardiac Services Routine History of TIA (transient ischemic attack) Expected: 09/18/2025 (Approximate), Expires: 09/11/2026 Scheduled Procedures Name Priority Associated Diagnoses Date/Ti me CV CAROTID CEREBRAL ANGIOGRA M BILATERAL History of TIA (transient ischemic attack) documented as of this encounter Visit Diagnoses Diagnosis History of TIA (transient ischemic attack)- Primary documented in this encounter Care Teams Cut And Cover Line Worker Relationship Specialty Start Date End Date Araceli Doyle MD PCP - General Family Medicine 03/19/22 documented as of this encounter
--- OUTSIDE RECORDS SUMMARY | 2025-09-13 13:30 | XMS_ITS | Encounter Summary ---
Author Organization [facility] Address [address] [place] [id number] Care Team Providers Care Director Metabolism Name Role Phone Araceli Doyle MD Primary Care Provider [phone] Reason for Visit * Reason Comments Incomplete bladder emptying Encounter Details Date Type Department Care Team (Late st Contact Info) Description 09/13/2025 1:30 PM EDT Office Visit [facility] UROLOGY [address] [facility] [address] [place] [address] Demi Palomares PA-C [address] [facility] [address] [place] [address] Incomplete bladder emptying (Primary Dx); Urinary tract infection, bacterial; Female cystocele Social History Tobacco Use Types Packs/Day Years Used Date Smoking Tobacco: Never Passive Smoke Exposure: Past Smokeless Tobacco: Never Tobacco Cessation:Counseling Given: Not Answered Alcohol Use Standard Drinks/Week Comments Not Currently 0 (1 standard drink = 0.6 oz pur e alcohol) [facility] Utilities Answer Date Recorded In the past 12 months has [employer], oil, or water [employer] threatened to shut off services in your [...] care, and heating? Not very hard 08/22/2025 [facility] - Occupational Stress Questionnaire Answer Date Recorded [...] GED or equivalent No 08/22/2025 Preferred Language Icelandic 08/22/2025 PHQ-2 Answer Date Recorded Patient Health Questionnaire-2 Score 0 08/22/2025 Comments Unknown Sex and Gender Information Value Date Recorded Sex Assigned at Not on file Legal Sex Female 10:07 AM EDT Gender Identity Not on file Sexual Orientation Not on file documented as of this encounter Progress Notes * Demi Palomares PA-C - 09/13/2025 1:30 PM EDT Images from the original note were not included. UTI Office Visit Patient Name: Brynn Cox : 1965 Chief Complaint: UTI Chief Complaint Patient presents with Incomplete bladder emptying Referring Provider: No ref. provider found History of Present Illness: Brooke is a 60 y.o. type 2 diabetes, peripheral neuropathy, diabeticretinopathy, hypertension, hyperlipidemia who presents today for UTI. She presents to appointment with her . She underwent urodynamics study 08/28/25: report reviewed, no AUNDREA at 196 mL, no detrustor overactivity during bladder filling and with provocation, she was unable to void for flow and had no significant detrusor pressure but significant straining on attempt She has been doing CIC morning and evening (after urinating) removing anywhere from 1 oz to 9 oz ofurine with average volume 5-6 oz. She continues to urinate on her own and can't tell she is not emptying completely. She tried flomax but developed hives after 3 days and had to stop it. On pelvic exam last visit she had at least grade 2-3 cystocele with significant weakness of pelvic floor muscles. She has been referred to PFPT, but has not received a call to schedule. She has noticed a strong urine smell recently and is wondering if she has a UTI. Urine today positive for nitrites. PVR 43 mL. Her blood sugar is better controlled now. reports mostly 130-150s. Subjective Review of System: Review of Systems Genitourinary: Strong urine odor All other systems reviewed and are negative. [...] Date BREAST AUGMENTATION CHOLECYSTECTOMY TUBAL ABDOMINAL LIGATION Medications: Current Outpatient Medications: aspirin 81 MG chewable [...] Continuous Glucose Sensor (FreeStyle Jovita 3 Sensor) [facility] [place], Inject 1 each under the skin into [...] tablet by mouth Daily., Disp: , Rfl: bethanechol (URECHOLINE) 10 MG tablet, Take 1 tablet by mouth 3 (Three) Times a Day., Disp: 90 tablet, Rfl: 1 cefuroxime (CEFTIN) 500 MG tablet, Take 1 tablet by mouth 2 (Two) Times a Day for 10 days., Disp: 20 tablet, Rfl: 0 venlafaxine XR (EFFEXOR-XR) 75 MG 24 hr capsule, Take 1 capsule by mouth Daily. (Patient not taking: Reported on 09/13/2025), Disp: , Rfl: Allergies: Allergies Allergen Reactions Flomax [Tamsulosin] Hives Codeine GI Intolerance Vomiting Sulfa Antibiotics GI Intolerance vomiting Social History: Social History Socioeconomic History Marital status: Tobacco Use Smoking status: Never Passive exposure: Past Smokeless tobacco: Never Vaping Use Vaping status: Never Used Substance and Sexual Activity Alcohol use: Not Currently Drug use: Never Sexual activity: Yes Partners: Male Family History: Family History Problem Relation Name Age of Onset Diabetes Mother Jenni Callahan Coronary artery disease Mother Jenni Callahan Coronary artery disease Father Yadiel Callahan Hypertension Father Yadiel Callahan Diabetes Father Yadiel Callahan Heart attack Father Yadiel Callahan Cancer Maternal Grandmother Alvin Heart attack Maternal Grandmother Alvin Bladder & Bowel Symptom Questionnaire How often [...] not ill-appearing. HENT: Head: Normocephalic and atraumatic. Neurological: Mental Status: She is alert. Psychiatric: Mood and Affect: Mood normal. Behavior: Behavior normal. Thought Content: Thought content normal. Labs: Brief Urine Lab Results (Last result in the past 365 days) Color Clarity Blood Leuk Est Nitrite Protein CREAT Urine HCG 08/17/25 1209 Yellow Clear Negative Negative Negative 30 mg/dL (1+) Brief Urine Lab Results (Last result in the past 365 days) Color Clarity Blood Leuk Est Nitrite Protein CREAT Urine HCG 08/17/25 1209 Yellow Clear Negative Negative Negative 30 mg/dL (1+) Brief Urine Lab Results (Last result in the past 365 days) Color Clarity Blood Leuk Est Nitrite Protein CREAT Urine HCG 08/17/25 1209 Yellow Clear Negative Negative Negative 30 mg/dL (1+) Lab Results Component Value Date GLUCOSE 169 (H) 08/23/2025 CALCIUM 8.8 08/23/2025 NA 141 08/23/2025 K 4.5 08/23/2025 CO2 25.9 08/23/2025 CL 107 08/23/2025 BUN 15.2 08/23/2025 CREATININE 0.94 08/23/2025 EGFRIFAFRI 110 12/22/2019 EGFRIFNONA 96 12/22/2019 BCR 16.2 08/23/2025 ANIONGAP 8.1 08/23/2025 Lab Results Component Value Date WBC 6.82 08/23/2025 HGB 10.2 (L) 08/23/2025 HCT 29.3 (L) 08/23/2025 MCV 93.6 08/23/2025 PLT 222 08/23/2025 Images: MRI Brain Without Contrast Result Date: [...] MD 07/26/2025 11:08 PM EDT Workstation ID: [id number] [facility] CT CEREBRAL PERFUSION WITH & WITHOUT CONTRAST Result Date: 07/26/2025 1. Area of suggested ischemic brain at risk involving the left MCA territory without core infarction. Electronically Signed: Saturnino Macdonald MD 07/26/2025 9:07 PM EDT Workstation ID: [id number] [facility] CT Angiogram Head Result Date: 07/26/2025 [...] MD 07/26/2025 7:59 PM EDT Workstation ID: [id number] CT Angiogram Neck Result Date: 07/26/2025 Impression: 1.Occlusion of the supraclinoid left internal carotid artery with minimal opacificationof the cavernous and petrous segments. Left anterior cerebral and middle cerebral arteries are supplied by a patent anterior communicating artery. 2.High-grade stenosis of the supraclinoid right internal carotid artery. 3.No evidence of intracranial aneurysm. Electronically Signed: Guille Miller MD 07/26/2025 7:59 PM EDT Workstation ID: [id number] CT Head Without Contrast Result Date: 07/26/2025 Impression: No acute intracranial findings. Electronically Signed: Saturnino Macdonald MD 07/26/2025 7:48 PM EDT Workstation ID: [id number] Measures: Tobacco: Brynn Cox reports that she has never smoked. She has been exposed to tobacco smoke. She has never used smokeless tobacco. Assessment / Plan Assessment: Brooke is a 60 y.o. who presented today for incomplete bladder emptying. Off Flomax due to true allergy (hives). She is removing an average for 5-6 oz from bladder with CIC morning and night afterurinating. PVR appears better today at 47 mL, but she will continue CIC since she is removing quitea bit of urine with CIC after urinating. Will trial bethanechol 10 mg TID to see if it helps with bl adder emptying. They will continue to keep a log of how much is being emptied from bladder with CIC. During urodynamics study she was unfortunately unable to urinate and therefore we do not have flowand detrusor pressure to determine if bladder muscle is working or if there is possible obstruction, which would point to cystocele as the culprit. We will check on her PFPT referral. Urine today positive for nitrites. Treat with ceftin while awaiting urine culture. Diagnoses and all orders for this visit: 1. Incomplete bladder emptying (Primary) - bethanechol (URECHOLINE) 10 MG tablet; Take 1 tablet by mouth 3 (Three) Times a Day. Dispense: 90tablet; Refill: 1 2. Urinary tract infection, bacterial - cefuroxime (CEFTIN) 500 MG tablet; Take 1 tablet by mouth 2 (Two) Times a Day for 10 days. Dispense: 20 tablet; Refill: 0 3. Female cystocele Follow Up: Return in about 6 weeks (around 10/25/2025). Demi Palomares PA-C [facility] [place] documented in this encounter Plan of Treatment Upcoming Encounters Date Type Department Care Team (Late st Contact Info) Description 09/27/2025 10:00 AM EST Office Visit [facility] NEUROLOGY [address] [facility] [address] [place] [address] Charu Hernandez APRN [address] [facility] [address] [place] [address] 11/01/2025 11:00 AM EST Office Visit [facility] UROLOGY [address] [facility] [address] [place] [address] Demi Palomares PA-C [address] [facility] [address] [place] [address] 11/20/2025 2:00 PM EST Appointment [facility] CARDIOVASCULAR LAB [address] 3rd [place] [address] 11/29/2025 9:30 AM EST Office Visit [facility] CARDIOLOGY [address] [place] [address] Alaina Hayes APRN [address] [place] [address] 12/13/2025 1:45 PM EST Office Visit [facility] ENDOCRINOLOGY [address] [address] Katrina Garrett MD [address] [phone] Scheduled Procedures Name Priority Associated Diagnoses Date/Ti me CV CAROTID CEREBRAL ANGIOGRA M BILATERAL History of TIA (transient ischemic attack) documented as of this encounter Visit Diagnoses Diagnosis Incomplete bladder emptying- Primary Urinary tract infection, bacterial Female cystocele documented in this encounter Care Teams Director Metabolism Relationship Specialty Start Date End Date Araceli Doyle MD PCP - General Family Medicine 03/19/22 documented as of this encounter
--- NOTE | 2025-09-13 23:54 | ECG_ITS ---
APPROVED REPORT Exam: Resting ECG HR:169 bpm ECG Measurements Heart Rate 169 AXES QRSd 96 QRS 29 QT 265 T 61 QTc 357 Conclusion ATRIAL FIBRILLATION WITH RAPID VENTRICULAR RESPONSE NONSPECIFIC ST & T-WAVE ABNORMALITY No STEMI Electronically signed by : CATHIE MOSQUERA, 09/14/2025 03:51:50
--- NOTE | 2025-09-13 23:56 | CT_ITS ---
PROCEDURE INFORMATION: Exam: CT Head Without Contrast Exam date and time: 09/14/2025 12:49 AM Age: 60 years old Clinical indication: Pain; Headache; Additional info: Nausea, FARLEY, afib rvr TECHNIQUE: Imaging protocol: Computed tomography of the head without contrast. Radiation optimization: All CT scans at this facility use at least one of these dose optimization techniques: automated exposure control; mA and/or kV adjustment per patient size (includes targeted exams where dose is matched to clinical indication); or iterative reconstruction. COMPARISON: No relevant prior studies available. FINDINGS: Brain: No hemorrhage. No mass effect. Cerebral ventricles: No ventriculomegaly. Paranasal sinuses: No fluid levels. Mastoid air cells: Visualized mastoid air cells are well aerated. Bones: No acute fracture. Soft tissues: The visualized soft tissue is grossly unremarkable. IMPRESSION: No evidence of acute intracranial hemorrhage. COMMENTS: Please note that noncontrast head CT is not sensitive for the detection of ischemic infarct. If ischemic infarct is of clinical concern, additional imaging with CTA head/neck and brain MRI is recommended if capable.
--- NOTE | 2025-09-13 23:57 | CT_ITS ---
PROCEDURE INFORMATION: Exam: CT Abdomen And Pelvis With Contrast Exam date and time: 09/14/2025 12:56 AM Age: 60 years old Clinical indication: Nausea TECHNIQUE: Imaging protocol: Computed tomography of the abdomen and pelvis with contrast. 3D rendering (Not supervised by radiologist): MIP and/or 3D reconstructed images were created by the technologist. Radiation optimization: All CT scans at this facility use at least one of these dose optimization techniques: automated exposure control; mA and/or kV adjustment per patient size (includes targeted exams where dose is matched to clinical indication); or iterative reconstruction. Contrast material: ISOVUE; Contrast volume: 70 ml; Contrast route: IV; COMPARISON: CR XR CHEST PORTABLE 09/14/2025 12:17 AM FINDINGS: Liver: Fatty liver Gallbladder and biliary ducts: Cholecystectomy Pancreas: Normal. No ductal dilation. Spleen: Splenomegaly 14 cm Adrenal glands: Normal. No mass. Kidneys and ureters: Normal. No hydronephrosis. Stomach and bowel: Unremarkable. No obstruction. No mucosal thickening. Appendix: 7.8 mm appendix but no significant surrounding inflammatory changes and these findings a could indicate early acute appendicitis. Intraperitoneal space: Unremarkable. No free air. No significant fluid collection. Vasculature: Unremarkable. No abdominal aortic aneurysm. Lymph nodes: Unremarkable. No enlarged lymph nodes. Urinary bladder: Unremarkable as visualized. Reproductive: There is a 4.9 cm hypodense lesion in the right aspect of the uterus which could reflect a degenerating fibroid. Bones/joints: Unremarkable. No acute fracture. Soft tissues: Unremarkable. IMPRESSION: 7.8 mm appendix but no significant surrounding inflammatory changes . These findings could indicate early acute appendicitis The ordering physician Christian Dhaliwal was contacted by phone at 1:35 AM EDT, 09/14/2025 with these results.
--- NOTE | 2025-09-13 23:57 | CT_ITS ---
PROCEDURE INFORMATION: Exam: CTA Chest With Contrast Exam date and time: 09/14/2025 12:56 AM Age: 60 years old Clinical indication: Shortness of breath; Additional info: Tachy, arrhythmia, new o2 requirement TECHNIQUE: Imaging protocol: Computed tomographic angiography of the chest with contrast. Exam focused on the arteries. 3D rendering (Not supervised by radiologist): MIP and/or 3D reconstructed images were created by the technologist. Radiation optimization: All CT scans at this facility use at least one of these dose optimization techniques: automated exposure control; mA and/or kV adjustment per patient size (includes targeted exams where dose is matched to clinical indication); or iterative reconstruction. Contrast material: ISOVUE; Contrast volume: 70 ml; Contrast route: INTRAVENOUS (IV); COMPARISON: CR XR CHEST PORTABLE 09/14/2025 12:17 AM FINDINGS: Pulmonary arteries: Normal. No pulmonary emboli. Aorta: Unremarkable. No aortic aneurysm. No aortic dissection. Lungs: Unremarkable. No consolidation. No masses. Pleural spaces: Unremarkable. No pneumothorax. No pleural effusion. Heart: Unremarkable. No cardiomegaly. No pericardial effusion. Lymph nodes: Unremarkable. No enlarged lymph nodes. Bones/joints: Unremarkable. No acute fracture. Soft tissues: Unremarkable. IMPRESSION: No acute findings.
--- OUTSIDE RECORDS SUMMARY | 2025-09-13 23:57 | XMS_ITS | Encounter Summary ---
Author Organization [facility] Address [address] [place] [id number] Care Team Providers Care Fast Food Team Member Name Role Phone Araceli Doyle MD Primary Care Provider [phone] Reason for Visit * Reason Onset Date Comments Jesse BOYLE - SCHEDULING REQUEST 08/03/2025 Encounter Details Date Type Department Care Team ([facility] st Contact Info) Description 08/03/2025 Telephone [facility] CARDIOLOGY [address] [place] [address] Tamiko Boyle APRN [address] [place] [address] Jesse BOYLE - SCHEDULING REQUEST Social History Tobacco Use Types Packs/Day Years Used Date Smoking Tobacco: Never Passive Smoke Exposure: Past Smokeless Tobacco: Never Alcohol Use Standard Drinks/Week Comments Never 0 (1 standard drink = 0.6 oz pur e alcohol) [facility] Utilities Answer Date Recorded In the past 12 months has [employer], gas, oil, or water [employer] threatened to shut off services in your [...] care, and heating? Not very hard 08/22/2025 [place] [facility] - Occupational Stress [...] GED or equivalent No 08/22/2025 Preferred Language Telugu 08/22/2025 PHQ-2 Answer Date Recorded Patient Health Questionnaire-2 Score 0 08/22/2025 Comments Unknown Sex and Gender Information Value Date Recorded Sex Assigned at Not on file Legal Sex Female 10:07 AM EDT Gender Identity Not on file Sexual Orientation Not on file documented as of this encounter Functional Status * Over the past 2 weeks, how often have you been bothered by any of the following problems? Question Answer Date of Assessment Author Patient Health Questionnaire -2 Score 0 08/22/2025 8:49 AM EDT Vandana Tena RN * Calculated C-SSRS Risk Score (Lifetime/Recent) Answer Date of Assessment Author No Risk Indicated 08/21/2025 4:24 PM EDT Kindra Valero RN * [place]prise Suicide Severity Rating Scale (Screener/Recent Self-Report) Question [...] Tena RN documented as of this encounter Miscellaneous Notes * Telephone Encounter - Juanito Spears CMA - 08/03/2025 10:10 AM EDT PATIENT SCHEDULED FOR 08/09 @ 1PM * Telephone Encounter - Murray Jain RegSched Rep - 08/03/2025 9:59 AM EDT Caller: Brynn Cox Relationship to patient: Self Best call back number: [phone] Chief complaint: CAROTID BLOCKAGE, ONE COMPLETE BLOCKAGE. WAS TOLD ABOUT THIS LAST HOSP VISIT 07.26.25 Type of visit: FU Requested date: [place] Additional notes:NO SCHEDULING TIMEFRAME IN CHART FOR HUB TO SCHEDULE APPT. PLEASE CALL PT TO SCHEDULE NEXT APPT. documented in this encounter Plan of Treatment Upcoming Encounters Date Type Department Care Team (Late st Contact Info) Description 09/27/2025 10:00 AM EST Office Visit [facility] NEUROLOGY [address] [facility] [address] [place] [address] Charu Hernandez, REINFORCER [address] [facility] [address] [address] 11/01/2025 11:00 AM EST Office Visit [facility] UROLOGY [address] [facility] [address] [place] [address] Demi Palomares PA-C [address] [facility] [address] [place] [address] 11/20/2025 2:00 PM EST Appointment [facility] CARDIOVASCULAR LAB [address] [facility] 3rd [place] [address] 11/29/2025 9:30 AM EST Office Visit [facility] CARDIOLOGY [address] [place] [address] Alaina Hayes, REINFORCER [address] [place] [address] 12/13/2025 1:45 PM EST Office Visit [facility] ENDOCRINOLOGY [address] [address] Katrina Garrett MD [address] [phone] Scheduled Procedures Name Priority Associated Diagnoses Date/Ti me CV CAROTID CEREBRAL ANGIOGRA M BILATERAL History of TIA (transient ischemic attack) documented as of this encounter Visit Diagnoses Not on filedocumented in this encounter Care Teams Fast Food Team Member Relationship Specialty Start Date End Date Araceli Doyle MD PCP - General Family Medicine 03/19/22 documented as of this encounter
--- OUTSIDE RECORDS SUMMARY | 2025-09-13 23:57 | XMS_ITS | Encounter Summary ---
Author Organization [facility] Address [address] [place] [address] Care Team Providers Care Trust Officer Name Role Phone Araceli Doyle MD Primary Care Provider [phone] Encounter Details Date Type Department Care Team ([facility] st Contact Info) Description 07/28/2025 Readmission Management [facility] NURSE CALL [facility] [address] [place] [address] Eleni Ewing RN Social History Tobacco Use Types Packs/Day Years Used Date Smoking Tobacco: Never Passive Smoke Exposure: Past Smokeless Tobacco: Never Alcohol Use Standard Drinks/Week Comments Never 0 (1 standard drink = 0.6 oz pur e alcohol) [facility] Utilities Answer Date Recorded In the past 12 months has [employer], gas, oil, or water [employer] threatened to shut off services in your [...] GED or equivalent No 07/27/2025 Preferred Language Latvian 07/27/2025 Comments Unknown Sex and Gender Information Value Date Recorded Sex Assigned at Not on file Legal Sex Female 10:07 AM EDT Gender Identity Not on file Sexual Orientation Not on file documented as of this encounter Miscellaneous Notes * Outreach Note - Eleni Ewing RN - 07/28/2025 10:32 AM EDT Stroke Week 1 Survey Flowsheet Row Responses [facility] the patient have one of the following disease processes/diagnoses(primary or secondary)? Stroke Week 1 attempt successful? No Unsuccessful attempts Attempt 1 Eleni Lam - Registered Nurse documented in this encounter Plan of Treatment Upcoming Encounters Date Type Department Care Team (Late st Contact Info) Description 09/27/2025 10:00 AM EST Office Visit [facility] NEUROLOGY [address] [facility] [address] [place] [address] Charu Hernandez, FEED BLENDER [address] [facility] [address] [address] 11/01/2025 11:00 AM EST Office Visit [facility] UROLOGY [address] [facility] [address] [place] [address] Demi Palomares PA-C [address] [facility] [address] [place], [place] [id number] 11/20/2025 2:00 PM EST Appointment [facility] CARDIOVASCULAR LAB [address] [facility] 3rd [place] [phone] 11/29/2025 9:30 AM EST Office Visit [facility] CARDIOLOGY [address] [place] [address] Alaina Hayes, FEED BLENDER [address] [place] [address] 12/13/2025 1:45 PM EST Office Visit [facility] ENDOCRINOLOGY [address] [address] Katrina Garrett MD [address] [phone] Scheduled Procedures Name Priority Associated Diagnoses Date/Ti me CV CAROTID CEREBRAL ANGIOGRA M BILATERAL History of TIA (transient ischemic attack) documented as of this encounter Visit Diagnoses Not on filedocumented in this encounter Care Teams Trust Officer Relationship Specialty Start Date End Date Araceli Doyle MD PCP - General Family Medicine 03/19/22 documented as of this encounter
--- OUTSIDE RECORDS SUMMARY | 2025-09-13 23:57 | XMS_ITS | Encounter Summary ---
Author Organization [facility] Address [address] [place] [id number] Care Team Providers Care Take Up Operator Name Role Phone Araceli Doyle MD Primary Care Provider [phone] Reason for Visit * Reason Onset Date Comments APC NEURO STROKE DILLAN-SOONER APPT 07/28/2025 Encounter Details Date Type Department Care Team (Late st Contact Info) Description 07/28/2025 Telephone [facility] NE[facility]OLOG[facility] [address] [facility] [address] [place] [address] Charu Hernandez, GAMALIEL [address] [facility] [address] [place] [address] APC NEURO STROKE DILLAN-SOONER APPT Social History Tobacco Use Types Packs/Day Years Used Date Smoking Tobacco: Never Passive Smoke Exposure: Past Smokeless Tobacco: Never Alcohol Use Standard Drinks/Week Comments Never 0 (1 standard drink = 0.6 oz pur e alcohol) [facility] Utilities Answer Date Recorded In the past 12 months has [employer], [employer], oil, or water [employer] threatened to shut off services in your [...] GED or equivalent No 07/27/2025 Preferred Language Armenian 07/27/2025 Comments Unknown Sex and Gender Information Value Date Recorded Sex Assigned at Not on file Legal Sex Female 10:07 AM EDT Gender Identity Not on file Sexual Orientation Not on file documented as of this encounter Miscellaneous Notes * Telephone Encounter - Lupe Jacinto MA - 07/28/2025 3:33 PM EDT Returned 's call. Her appointment has been rescheduled to 08/25/25 at 2:00 PM. * Telephone Encounter - Melissa Tyler RegSched Rep - 07/28/2025 3:21 PM EDT Caller: Brynn Cox Relationship to patient: Self Best call back number: [phone] Chief complaint: PATIENT IS WANTING TO BE SEEN SOONER THAN 09/05/25. SHE IS WORRIED THAT APPT IS WAY TO FAR FOR DX SHE WAS GIVEN. PLEASE GIVE PATIENT A CALL BACK. Type of visit: HOSPITAL F/U Requested date: [place] If rescheduling, when is the original appointment: 09/05/25 PLEASE ADVISE THANK YOU documented in this encounter Plan of Treatment Upcoming Encounters Date Type Department Care Team (Late st Contact Info) Description 09/27/2025 10:00 AM EST Office Visit [facility] [address] [facility] [address] [place] [address] Charu Hernandez APRN 1720 [facility] [address] [place] [address] 11/01/2025 11:00 AM EST Office Visit [facility] [address] [facility] [address] [place] [phone] Demi Palomares PA-C 3000 [facility] [address] [place] [address] 11/20/2025 2:00 PM EST Appointment [facility] CARDIOVASCULAR LAB 1720 [facility] 3rd [place] [address] 11/29/2025 9:30 AM EST Office Visit [facility] CARDIOLOG[facility] [address] [place] [address] Alaina Hayes APRN [address] [place] [address] 12/13/2025 1:45 PM EST Office Visit [facility] ENDOCRINOLOG[facility] [address] [facility] [address] [place] [address] Katrina Garrett MD 3084 [facility] [address] [place] [address] Scheduled Procedures Name Priority Associated Diagnoses Date/Ti me CV CAROTID CEREBRAL ANGIOGRA M BILATERAL History of TIA (transient ischemic attack) documented as of this encounter Visit Diagnoses Not on filedocumented in this encounter Care Teams Take Up Operator Relationship Specialty Start Date End Date Araceli Doyle MD PCP - General Family Medicine 03/19/22 documented as of this encounter
--- OUTSIDE RECORDS SUMMARY | 2025-09-13 23:58 | XMS_ITS | Encounter Summary ---
Author Organization [facility] Address [address] [place] [address] Care Team Providers Care Public Information Director Name Role Phone Araceli Doyle MD Primary Care Provider Encounter Details Date Type Department Care Team ([facility] st Contact Info) Description 08/01/2025 Readmission Management [facility] [address] [place] [address] Adele Hernandez RN Social History Tobacco Use Types Packs/Day Years Used Date Smoking Tobacco: Never Passive Smoke Exposure: Past Smokeless Tobacco: Never Alcohol Use Standard Drinks/Week Comments Never 0 (1 standard drink = 0.6 oz pur e alcohol) [facility] Utilities Answer Date Recorded In the past 12 months has [employer], gas, oil, or water [employer] threatened to shut off services in your [...] GED or equivalent No 07/27/2025 Preferred Language Khmer 07/27/2025 Comments Unknown Sex and Gender Information Value Date Recorded Sex Assigned at Not on file Legal Sex Female 10:07 AM EDT Gender Identity Not on file Sexual Orientation Not on file documented as of this encounter Miscellaneous Notes * Outreach Note - Adele Hernandez RN - 08/01/2025 9:40 AM EDT Stroke Week 1 Survey Flowsheet Row [facility]es [facility] Does the patient have one of the following disease processes/diagnoses(primary or secondary)? Stroke Week 1 attempt successful? Yes Call start time 940 Call end time 952 Discharge diagnosis Facial droop/TIA Person spoke with today (if not patient) and relationship pt Meds reviewed with patient/caregiver? Yes Is the patient having any side effects they believe may be caused by any medication additions or changes? No Does the patient have all medications ordered at discharge? Yes Is the patient taking all medications as directed (includes completed medication regime)? Yes Does the patient have a primary care provider? Yes Does the patient have an appointment with their PCP within 7 days of discharge? Yes Has the patient kept scheduled appointments due by today? Yes [facility] at [facility] requests you follow up with them within 30 days for important follow up care. Please call [phone] to schedule this appointment. Thank you. Yes Psychosocial issues? No Does the patient require any assistance with activities of daily living such as eating, bathing, dressing, walking, etc.? No Does the patient have any residual symptoms from stroke/TIA? No Does the patient understand the diet ordered at discharge? No Did the patient receive a copy of their discharge instructions? Yes Nursing interventions Reviewed instructions with patient What is the patient's perception of their health status since discharge? Improving Nursing interventions Nurse provided patient education Is the patient/caregiver able to teach back signs and symptoms related to disease process for when to call PCP? No Is the patient/caregiver able to teach back signs and symptoms related to disease process for when to call 911? No If the patient is a current smoker, are they able to teach back resources for cessation? Not a smoker Is the patient/caregiver able to teach back the hierarchy of who to call/visit for symptoms/problems? PCP, Specialist, Home health nurse, Urgent Care, ED, 911 Yes Is the patient able to teach back FAST for Stroke? B alance: Watch for sudden loss of balance, E yes: Check for vision loss, F chris: Look for an uneven smile, A rm: Check if one arm is weak, S peech: Listen for slurred speech, T maria: Call right away Week 1 call completed? Yes Is the patient interested in additional calls from an ambulatory case preparer and liner? No Would this patient benefit from a Referral to [facility] Social Work? No Call end time 952 ADELE Mckeon - Registered Nurse documented in this encounter Plan of Treatment Upcoming Encounters Date Type Department Care Team (Late st Contact Info) Description 09/27/2025 10:00 AM EST Office Visit [facility] NEUROLOGY [address] [facility] [address] [place] [address] Charu Hernandez, FLOWER MACHINE OPERATOR [address] [facility] [address] [place] [address] 11/01/2025 11:00 AM EST Office Visit [facility] UROLOGY [address] [facility] [address] [place] [address] Demi Palomares PA-C 3000 [facility] [address] [place] [address] 11/20/2025 2:00 PM EST Appointment [facility] CARDIOV[facility]ULAR LAB [address] [facility] 3rd [place] [address] 11/29/2025 9:30 AM EST Office Visit [facility] CARDIOLOGY [address] [place] [address] Alaina Hayes, FLOWER MACHINE OPERATOR [address] [place], [place] [address] 12/13/2025 1:45 PM EST Office Visit [facility] ENDOCRINOLOGY [address] [address] Katrina Garrett MD [address] [phone] Scheduled Procedures Name Priority Associated Diagnoses Date/Ti me CV CAROTID CEREBRAL ANGIOGRA M BILATERAL History of TIA (transient ischemic attack) documented as of this encounter Visit Diagnoses Not on filedocumented in this encounter Care Teams Public Information Director Relationship Specialty Start Date End Date Araceli Doyle MD PCP - General Family Medicine 03/19/22 documented as of this encounter
--- OUTSIDE RECORDS SUMMARY | 2025-09-13 23:58 | XMS_ITS | Encounter Summary ---
Author Organization [facility] Address [address] [place] [address] Care Team Providers Care Medart Operator Name Role Phone Araceli Doyle MD Primary Care Provider [phone] Encounter Details Date Type Department Care Team ([facility] st Contact Info) Description 08/15/2025 Readmission Management [facility] N[facility] [address] [place] [address] Genevieve Holloway RN Social History Tobacco Use Types Packs/Day Years Used Date Smoking Tobacco: Never Passive Smoke Exposure: Past Smokeless Tobacco: Never Alcohol Use Standard Drinks/Week Comments Never 0 (1 standard drink = 0.6 oz pur e alcohol) [facility] Utilities Answer Date Recorded In the past 12 months has [employer], gas, oil, or water [employer] threatened to shut off services in your [...] GED or equivalent No 07/27/2025 Preferred Language Turkish 07/27/2025 Comments Unknown Sex and Gender Information Value Date Recorded Sex Assigned at Not on file Legal Sex Female 10:07 AM EDT Gender Identity Not on file Sexual Orientation Not on file documented as of this encounter Miscellaneous Notes * Outreach Note - Genevieve Holloway RN - 08/15/2025 3:54 PM EDT Stroke Week 2 Survey Flowsheet Row Responses [facility] [place] patient discharged from? [place] Does the patient have one of the following disease processes/diagnoses(primary or secondary)? Stroke Week 2 attempt successful? No Unsuccessful attempts Attempt 2 Genevieve Bowers - Registered Nurse documented in this encounter Plan of Treatment Upcoming Encounters Date Type Department Care Team (Late st Contact Info) Description 09/27/2025 10:00 AM EST Office Visit [facility] NEUROLOGY [address] [facility] [address] [place] [address] Charu Hernandez, WOOD PANEL INSPECTOR [address] [facility] [address] [address] 11/01/2025 11:00 AM EST Office Visit [facility] UROLOGY [address] [facility] [address] [place] [phone] Demi Palomares PA-C 3000 [facility] [address] [place], [place] [address] 11/20/2025 2:00 PM EST Appointment [facility] CARDI[facility]ULAR LAB [address] [facility] 3rd [place] [address] 11/29/2025 9:30 AM EST Office Visit [facility] CARDIOLOGY [address] [place] [address] Alaina Hayes, WOOD PANEL INSPECTOR [address] [place] [address] 12/13/2025 1:45 PM EST Office Visit [facility] ENDOCRINOLOGY [address] [address] Katrina Garrett MD [address] [phone] Scheduled Procedures Name Priority Associated Diagnoses Date/Ti me CV CAROTID CEREBRAL ANGIOGRA M BILATERAL History of TIA (transient ischemic attack) documented as of this encounter Visit Diagnoses Not on filedocumented in this encounter Care Teams Medart Operator Relationship Specialty Start Date End Date Araceli Doyle MD PCP - General Family Medicine 03/19/22 documented as of this encounter
--- OUTSIDE RECORDS SUMMARY | 2025-09-13 23:58 | XMS_ITS | Encounter Summary ---
Author Organization [facility] Address [address] [place] [address] Care Team Providers Care Cutter Tender Name Role Phone Araceli Doyle MD Primary Care Provider [phone] Encounter Details Date Type Department Care Team ([facility] st Contact Info) Description 07/31/2025 Readmission Management [facility] NURSE CALL CENTER [address] [place] [address] Mt Pickard, RN Social History Tobacco Use Types Packs/Day Years Used Date Smoking Tobacco: Never Passive Smoke Exposure: Past Smokeless Tobacco: Never Alcohol Use Standard Drinks/Week Comments Never 0 (1 standard drink = 0.6 oz pur e alcohol) [facility] Utilities Answer Date Recorded In the past 12 months has [employer], gas, oil, or water [employer] threatened to shut off services in your [...] GED or equivalent No 07/27/2025 Preferred Language Polish 07/27/2025 Comments Unknown Sex and Gender Information Value Date Recorded Sex Assigned at Not on file Legal Sex Female 10:07 AM EDT Gender Identity Not on file Sexual Orientation Not on file documented as of this encounter Miscellaneous Notes * Outreach Note - Mt Pickard RN - 07/31/2025 12:11 PM EDT Stroke Week 1 Survey Flowsheet Row Responses [facility] the patient have one of the following disease processes/diagnoses(primary or secondary)? Stroke Week 1 attempt successful? No Unsuccessful attempts Attempt 2 Mt Melendrez - Registered Nurse documented in this encounter Plan of Treatment Upcoming Encounters Date Type Department Care Team (Late st Contact Info) Description 09/27/2025 10:00 AM EST Office Visit [facility] NEUROLOGY [address] [facility] [address] [place] [address] Charu Hernandez, BOWLING PIN SETTERS INSTALLER [address] [facility] [address] [address] 11/01/2025 11:00 AM EST Office Visit [facility] UROLOGY [address] [facility] [address] [place] [address] Demi Palomares PA-C 3000 [facility] [address] [place], [place] [address] 11/20/2025 2:00 PM EST Appointment [facility] CARDI[facility]ULAR LAB [address] [facility] 3rd [place] [address] 11/29/2025 9:30 AM EST Office Visit [facility] CARDIOLOGY [address] [place] [address] Alaina Hayes, BOWLING PIN SETTERS INSTALLER [address] [place] [address] 12/13/2025 1:45 PM EST Office Visit [facility] ENDOCRINOLOGY [address] [address] Katrina Garrett MD [address] [phone] Scheduled Procedures Name Priority Associated Diagnoses Date/Ti me CV CAROTID CEREBRAL ANGIOGRA M BILATERAL History of TIA (transient ischemic attack) documented as of this encounter Visit Diagnoses Not on filedocumented in this encounter Care Teams Cutter Tender Relationship Specialty Start Date End Date Araceli Doyle MD PCP - General Family Medicine 03/19/22 documented as of this encounter
--- OUTSIDE RECORDS SUMMARY | 2025-09-13 23:59 | XMS_ITS | Encounter Summary ---
Author Organization [facility] Address [address] [place] [address] Care Team Providers Care Customer Sales Representative Name Role Phone Araceli Doyle MD Primary Care Provider [phone] Encounter Details Date Type Department Care Team (Latest Contact Info) Description 08/09/2025 Travel Social History Tobacco Use Types Packs/Day Years Used Date Smoking Tobacco: Never Passive Smoke Exposure: Past Smokeless Tobacco: Never Alcohol Use Standard Drinks/Week Comments Never 0 (1 standard drink = 0.6 oz pur e alcohol) [email or web address] Utilities Answer Date Recorded In the past 12 months has [employer], gas, oil, or water [employer] threatened to shut off services in your [...] GED or equivalent No 07/27/2025 Preferred Language Mongolian 07/27/2025 Comments Unknown Sex and Gender Information Value Date Recorded Sex Assigned at Not on file Legal Sex Female 10:07 AM EDT Gender Identity Not on file Sexual Orientation Not on file documented as of this encounter Plan of Treatment Upcoming Encounters Date Type Department Care Team (Late st Contact Info) Description 09/27/2025 10:00 AM EST Office Visit [facility] NEUROLOGY [address] [place] [address] [place] [address] Charu Hernandez APRN [address]20 [facility] [address] [address] 11/01/2025 11:00 AM EST Office Visit [facility] UROLOGY [address] [facility] [address] [place] [address] Demi Palomares PA-C 3000 [facility] [address] [place] [address] 11/20/2025 2:00 PM EST Appointment [facility] CARDIOVASCULAR LAB [address] [facility] [address] 3rd [place] [address] 11/29/2025 9:30 AM EST Office Visit [facility] CARDIOLOGY [address] [place] [address] Alaina Hayes APRN [address] [place] [address] 12/13/2025 1:45 PM EST Office Visit [facility] ENDOCRINOLOGY [address] [facility] [address] [place] [address] Katrina Garrett MD [address] [facility] [address] [place] [address] Scheduled Procedures Name Priority Associated Diagnoses Date/Ti me CV CAROTID CEREBRAL ANGIOGRA M BILATERAL History of TIA (transient ischemic attack) documented as of this encounter Visit Diagnoses Not on filedocumented in this encounter Care Teams Customer Sales Representative Relationship Specialty Start Date End Date Araceli Doyle MD PCP - General Family Medicine 03/19/22 documented as of this encounter
--- OUTSIDE RECORDS SUMMARY | 2025-09-13 23:59 | XMS_ITS | Encounter Summary ---
Author Organization [facility] Address [address] [place] [address] Care Team Providers Care Transfer Agent Name Role Phone Araceli Doyle MD Primary Care Provider [phone] Reason for Visit * Reason Comments Med Refill Encounter Details Date Type Department Care Team (Late st Contact Info) Description 03/17/2024 Refill [facility] ENDOCRINOLOGY [address] [facility] [address] [place] [address] Demi Palomares PA-C [address] [facility] [address] [place] [address] Social History Tobacco Use Types Packs/Day Years Used Date Smoking Tobacco: Never Passive Smoke Exposure: Past Smokeless Tobacco: Never Alcohol Use Standard Drinks/Week Comments Never 0 (1 standard drink = 0.6 oz pur e alcohol) Comments Unknown Sex and Gender Information Value Date Recorded Sex Assigned at Not on file Legal Sex Female 10:07 AM EDT Gender Identity Not on file Sexual Orientation Not on file documented as of this encounter Miscellaneous Notes * Telephone Encounter - Arun Romero MA - 03/17/2024 1:14 PM EDT Rx Refill Note Requested Prescriptions Pending Prescriptions Disp Refills Mounjaro 2.5 MG/0.5ML solution pen-injector pen [Pharmacy Med Name: Mounjaro 2.5 MG/0.5ML Subcutaneous Solution Pen-injector] 4 mL 0 Sig: INJECT 1 SYRINGE SUBCUTANEOUSLY ONCE A WEEK Last office visit with prescribing clinician: Visit date not found Last telemedicine visit with prescribing clinician: Visit date not found Next office visit with prescribing clinician: Visit date not found Would you like a call back once the refill request has been completed: [] Yes [] No If the office needs to give you a call back, can they leave a voicemail: [] Yes [] No Arun Romero MA 03/17/24, 13:14 EDT documented in this encounter Plan of Treatment Upcoming Encounters Date Type Department Care Team (Late st Contact Info) Description 09/27/2025 10:00 AM EST Office Visit [facility] NEUROLOGY [address] [facility] [address] [place] [address] Charu Hernandez, MEDICAL CENTER DIRECTOR 1720 [facility] [address] [address] 11/01/2025 11:00 AM EST Office Visit [facility] UROLOGY [address] [facility] [address] [place] [address] Demi Palomares PA-C 3000 [facility] [address] [place] [address] 11/20/2025 2:00 PM EST Appointment [facility] CARDIOVASCULAR LAB [address] [facility] 3rd [place] [address] 11/29/2025 9:30 AM EST Office Visit [facility] CARDIOLOGY [address] [place] [address] Alaina Hayes, MEDICAL CENTER DIRECTOR [address] [place] [address] 12/13/2025 1:45 PM EST Office Visit [facility] ENDOCRINOLOGY [address] [address] Katrina Garrett MD [address] [address] Scheduled Procedures Name Priority Associated Diagnoses Date/Ti dc CV CAROTID CEREBRAL ANGIOGRA M BILATERAL History of TIA (transient ischemic attack) documented as of this encounter Visit Diagnoses Not on filedocumented in this encounter Care Teams Transfer Agent Relationship Specialty Start Date End Date Araceli Doyle MD PCP - General Family Medicine 03/19/22 documented as of this encounter
--- OUTSIDE RECORDS SUMMARY | 2025-09-13 23:59 | XMS_ITS | Encounter Summary ---
[facility] Address [address] [place] [id number] Care Team Providers Care Vice President Of Instruction Name Role Phone Araceli Doyle MD Primary Care Provider Encounter Details Date Type Department Care Team ([facility] st Contact Info) Description 08/18/2025 Results Follow-Up [facility] UROLOGY [address] [facility] [address] [place] [address] Demi Palomares PA-C 3000 [facility] [address] [place] [address] Social History Tobacco Use Types Packs/Day Years Used Date Smoking Tobacco: Never Passive Smoke Exposure: Past Smokeless Tobacco: Never Alcohol Use Standard Drinks/Week Comments Not Currently 0 (1 standard drink = 0.6 oz pur e alcohol) [facility] Utilities Answer Date Recorded In the past 12 months has [employer], gas, oil, or water [employer] threatened to shut off services in your [...] care, and heating? Not very hard 08/22/2025 [facility] [place] of Occupat ional Health - Occupational Stress [...] GED or equivalent No 08/22/2025 Preferred Language Estonian 08/22/2025 PHQ-2 Answer Date Recorded Patient Health Questionnaire-2 Score 0 08/22/2025 Comments Unknown Sex and Gender Information Value Date Recorded Sex Assigned at Not on file Legal Sex Female 10:07 AM EDT Gender Identity Not on file Sexual Orientation Not on file documented as of this encounter Functional Status * Calculated C-SSRS Risk Score (Lifetime/Recent) Answer Date of Assessment Author No Risk Indicated 08/21/2025 4:24 PM EDT Kindra Valero RN * [place] Suicide Severity Rating Scale (Screener/Recent Self-Report) Question Answer Date of Assessment Author 1. Wish to be (Past 1 Month) No 025 4:24 PM EDT Kindra Valero RN 2. Non-Specific Active Suici susi Thoughts (Past 1 Month) No 08/21/2025 4:24 PM EDT Lani Valero ea, RN 6. Suicidal Behavior (Lifetime) No 4:24 PM EDT Kindra Valero RN documented as of this encounter Plan of Treatment Upcoming Encounters Date Type Department Care Team (Late st Contact Info) Description 09/27/2025 10:00 AM EST Office Visit [facility] NEUROLOGY [address] [place] [address] [address] [place] [address] Charu Hernandez APRN 1720 [facility] [address] [address] 11/01/2025 11:00 AM EST Office Visit [facility] UROLOGY 3000 [facility] [address] [place] [phone] Demi Palomares PA-C 3000 [facility] [address] [place] [address] 11/20/2025 2:00 PM EST Appointment [facility] CARDIOVASCULAR LAB [address] [facility] [address] 3rd [place] [address] 11/29/2025 9:30 AM EST Office Visit [facility] CARDIOLOGY [address] [place] [address] Alaina Hayes APRN [address] [place] [address] 12/13/2025 1:45 PM EST Office Visit [facility] ENDOCRINOLOGY [address] [address] Katrina Garrett MD [address] [phone] Scheduled Procedures Name Priority Associated Diagnoses Date/Ti me CV CAROTID CEREBRAL ANGIOGRA M BILATERAL History of TIA (transient ischemic attack) documented as of this encounter Visit Diagnoses Not on filedocumented in this encounter Care Teams Vice President Of Instruction Relationship Specialty Start Date End Date Araceli Doyle MD PCP - General Family Medicine 03/19/22 documented as of this encounter
--- OUTSIDE RECORDS SUMMARY | 2025-09-13 23:59 | XMS_ITS | Encounter Summary ---
Author Organization [facility] Address [address] [place] [address] Care Team Providers Care Finance Broker Name Role Phone Araceli Doyle MD Primary Care Provider [phone] Encounter Details Date Type Department Care Team (Latest Contact Info) Description 08/21/2025 Travel Social History Tobacco Use Types Packs/Day Years Used Date Smoking Tobacco: Never Passive Smoke Exposure: Past Smokeless Tobacco: Never Alcohol Use Standard Drinks/Week Comments Not Currently 0 (1 standard drink = 0.6 oz pur e alcohol) [facility] Utilities Answer Date Recorded In the past 12 months has [employer], gas, oil, or water [employer] threatened to shut off services in your [...] care, and heating? Not very hard 08/22/2025 [facility] [place] of Occupat ional Health - Occupational Stress [...] GED or equivalent No 08/22/2025 Preferred Language German 08/22/2025 PHQ-2 Answer Date Recorded Patient Health [...] 4:24 PM EDT Kindra Valero RN * [place] Suicide Severity Rating Scale (Screener/Recent Self-Report) Question Answer Date of Assessment Author 1. Wish to be (Past 1 Month) No 025 4:24 PM EDT Kindra Valero RN 2. Non-Specific Active Suici susi Thoughts (Past 1 Month) No 08/21/2025 4:24 PM EDT Lani Valero ea, RN 6. Suicidal Behavior (Lifetime) No 5 4:24 PM EDT Kindra Valero RN documented as of this encounter Plan of Treatment Upcoming Encounters Date Type Department Care Team (Late st Contact Info) Description 09/27/2025 10:00 AM EST Office Visit [facility] NEUROLOGY 1720 [facility] [address] [place] [address] Charu Hernandez APRN 1720 [facility] [address] [place] [address] 11/01/2025 11:00 AM EST Office Visit [facility] UROLOGY 3000 [facility] [address] [place] [address] Demi Palomares PA-C 3000 [facility] [address] [place] [address] 11/20/2025 2:00 PM EST Appointment [facility] CARDIOVASCULAR LAB 1720 [facility] 3rd [place] [address] 11/29/2025 9:30 AM EST Office Visit [facility] CARDIOLOGY [address] [place] [phone] Alaina Hayes, CONCRETE CONVEYOR OPERATOR 24 [place] [address] 12/13/2025 1:45 PM EST Office Visit [facility] ENDOCRINOLOGY [address] [address] Katrina Garrett MD [address] [phone] Scheduled Procedures Name Priority Associated Diagnoses Date/Ti me CV CAROTID CEREBRAL ANGIOGRA M BILATERAL History of TIA (transient ischemic attack) documented as of this encounter Visit Diagnoses Not on filedocumented in this encounter Care Teams Finance Broker Relationship Specialty Start Date End Date Araceli Doyle MD PCP - General Family Medicine 03/19/22 documented as of this encounter
--- OUTSIDE RECORDS SUMMARY | 2025-09-13 23:59 | XMS_ITS | Encounter Summary ---
Author Organization [facility] Address [address] [place] [address] Care Team Providers Care Railway Patrol Officer Name Role Phone Araceli Doyle MD Primary Care Provider [phone] Encounter Details Date Type Department Care Team (Latest Contact Info) Description 08/17/2025 Travel Social History Tobacco Use Types Packs/Day Years Used Date Smoking Tobacco: Never Passive Smoke Exposure: Past Smokeless Tobacco: Never Alcohol Use Standard Drinks/Week Comments Not Currently 0 (1 standard drink = 0.6 oz pur e alcohol) [facility] Utilities Answer Date Recorded In the past 12 months has [employer], gas, oil, or water [employer] threatened to shut off services in your [...] GED or equivalent No 07/27/2025 Preferred Language Romanian 07/27/2025 Comments Unknown Sex and Gender Information Value Date Recorded Sex Assigned at Not on file Legal Sex Female 10:07 AM EDT Gender Identity Not on file Sexual Orientation Not on file documented as of this encounter Plan of Treatment Upcoming Encounters Date Type Department Care Team (Late st Contact Info) Description 09/27/2025 10:00 AM EST Office Visit [facility] NEUROLOGY [address] [place] [address] [place] [address] Charu Hernandez APRN 1720 [facility] [address] [address] 11/01/2025 11:00 AM EST Office Visit [facility] UROLOGY [address] [facility] [place] [address] Demi Palomares PA-C 3000 [facility] [address] [place] [address] 11/20/2025 2:00 PM EST Appointment [facility] CARDIOV[facility]ULAR LAB [address] [address]rd [place] [address] 11/29/2025 9:30 AM EST Office Visit [facility] CARDIOLOGY [address] [place] [address] Alaina Hayes APRN [address] [place] [address] 12/13/2025 1:45 PM EST Office Visit [facility] ENDOCRINOLOGY [address] [facility] [address] [place] [address] Katrina Garrett MD [address] [facility] [address] [place] [address] Scheduled Procedures Name Priority Associated Diagnoses Date/Ti me CV CAROTID CEREBRAL ANGIOGRA M BILATERAL History of TIA (transient ischemic attack) documented as of this encounter Visit Diagnoses Not on filedocumented in this encounter Care Teams Railway Patrol Officer Relationship Specialty Start Date End Date Araceli Doyle MD PCP - General Family Medicine 03/19/22 documented as of this encounter
--- OUTSIDE RECORDS SUMMARY | 2025-09-13 23:59 | XMS_ITS | Encounter Summary ---
[facility] Address [address] [place] [address] Care Team Providers Care Diesel Automotive Technician Name Role Phone Araceli Doyle MD Primary Care Provider [phone] Reason for Visit * Reason Onset Date Comments Appointment 08/22/2025 Encounter Details Date Type Department Care Team (Late st Contact Info) Description 08/22/2025 Telephone [facility] ENDOCRINOLOGY [address] [address] Katrina Garrett MD [address] [phone] Appointment Social History Tobacco Use Types Packs/Day Years Used Date Smoking Tobacco: Never Passive Smoke Exposure: Past Smokeless Tobacco: Never Alcohol Use Standard Drinks/Week Comments Not Currently 0 (1 standard drink = 0.6 oz pur e alcohol) [facility] Utilities Answer Date Recorded In the past 12 months has [employer], gas, oil, or water [employer] threatened to shut off services in your [...] care, and heating? Not very hard 08/22/2025 [place] of Occupat ional Health - Occupational Stress [...] GED or equivalent No 08/22/2025 Preferred Language Kyrgyz 08/22/2025 PHQ-2 Answer Date Recorded Patient Health [...] 8:49 AM EDT Vandana Tena RN * Question Answer Date of Assessment Author Little interest or pleasure in doing things Not at all 08/22/2025 8:49 AM EDT Vandana Tena RN Feeling down, depressed, or hopeless Not at all 08/22/2025 8:49 AM EDT Vandana Tena RN documented as of this encounter Miscellaneous Notes * Telephone Encounter - Katrina Garrett MD - 08/22/2025 10:32 AM EDT Noted. * Telephone Encounter - Estee Turner RegSched Rep - 08/22/2025 10:15 AM EDT Caller: Brynn Cox Relationship to patient: Self Patient is needing: PATIENT CALLED TO LET DR. GARRETT KNOW SHE IS HOSPITALIZED AND THAT IS WHY SHE MISSED HER APPT TODAY. SHE WILL CALL BACK TO RESCHEDULE AT A LATER TIME. documented in this encounter Plan of Treatment Upcoming Encounters Date Type Department Care Team (Late st Contact Info) Description 09/27/2025 10:00 AM EST Office Visit [facility] NEUROLOGY [address] [facility] [address] [place] [address] Charu Hernandez, INDUCTION HEATING EQUIPMENT SETTER 1720 [facility] [address] [address] 11/01/2025 11:00 AM EST Office Visit [facility] UROLOGY [address] [facility] [address] [place] [address] Demi Palomares PA-C [address] [facility] [address] [place] [address] 11/20/2025 2:00 PM EST [facility]ointment [facility] [address]20 [facility] 3rd [place] [address] 11/29/2025 9:30 AM EST Office Visit [facility] CARDIOLOGY [address] [place] [address] Alaina Hayes, INDUCTION HEATING EQUIPMENT SETTER [address] [place], [place] [address] 12/13/2025 1:45 PM EST Office Visit [facility] ENDOCRINOLOGY 3084 [facility] 100 [place] [address] Katrina Garrett MD [address] [facility] [address] [place] [address] Scheduled Procedures Name Priority Associated Diagnoses Date/Ti me CV CAROTID CEREBRAL ANGIOGRA M BILATERAL History of TIA (transient ischemic attack) documented as of this encounter Visit Diagnoses Not on filedocumented in this encounter Care Teams Diesel Automotive Technician Relationship Specialty Start Date End Date Araceli Doyle MD PCP - General Family Medicine 03/19/22 documented as of this encounter
[2025-09-14] VITALS (44 sets, daily range): BP systolic 93–149; BP diastolic 51–108; PULSE 65–147; RESP 12–19; TEMP 36.4–37.1; O2SAT 88–100; BMI 24.3; BMI 24.8
--- OUTSIDE RECORDS SUMMARY | 2025-09-14 | XMS_ITS | Encounter Summary ---
[facility] Organization [facility] Address [address] [place] [address] Care Team Providers Care Telecine Operator Name Role Phone Araceli Doyle MD Primary Care Provider [phone] Encounter Details Date Type Department Care Team ([facility] st Contact Info) Description 08/23/2025 Readmission Management [facility] [address] [place] [address] Mar Guzman, RN Social History Tobacco Use Types Packs/Day Years Used Date Smoking Tobacco: Never Passive Smoke Exposure: Past Smokeless Tobacco: Never Alcohol Use Standard Drinks/Week Comments Not Currently 0 (1 standard drink = 0.6 oz pur e alcohol) [facility] Utilities Answer Date Recorded In the past 12 months has [employer]), gas, oil, or water [employer] threatened to shut off services in your [...] care, and heating? Not very hard 08/22/2025 [facility] [place] of Occupat ional Health - Occupational Stress [...] GED or equivalent No 08/22/2025 Preferred Language Samoan 08/22/2025 PHQ-2 Answer Date Recorded Patient Health Questionnaire-2 Score 0 08/22/2025 Comments Unknown Sex and Gender Information Value Date Recorded Sex Assigned at Not on file Legal Sex Female 10:07 AM EDT Gender Identity Not on file Sexual Orientation Not on file documented as of this encounter Miscellaneous Notes * Outreach Note - Mar Guzman RN - 08/23/2025 6:57 PM EDT Prep Survey Flowsheet Row Responses [facility] patient discharged from? [place] Is LACE score less than 10 ? Yes Eligibility Readm Mgmt Discharge diagnosis Internal carotid artery occlusion Does the patient have one of the following disease processes/diagnoses(primary or secondary)? Other Does the patient have Home health ordered? No Is there a DME ordered? No Prep survey completed? Yes MAR Kraus - Registered Nurse documented in this encounter Plan of Treatment Upcoming Encounters Date Type Department Care Team (Late st Contact Info) Description 09/27/2025 10:00 AM EST Office Visit [facility] NEUROLOGY 1720 [facility] [address] [place] [address] Charu Hernandez APRN 1720 [facility] [address] [address] 11/01/2025 11:00 AM EST Office Visit [facility] UROLOGY 3000 [facility] [address] [place] [address] Demi Palomares PA-C 3000 [facility] [address] [place] [address] 11/20/2025 2:00 PM EST Appointment [facility] CARDIOVASCULAR LAB 1720 [facility] 3rd [place] [address] 11/29/2025 9:30 AM EST Office Visit [facility] CARDIOLOGY [address] [place] [address] Alaina Hayes APRN [address] [place] [address] 12/13/2025 1:45 PM EST Office Visit [facility] ENDOCRINOLOGY [address] [address] Katrina Garrett MD [address] [phone] Scheduled Procedures Name Priority Associated Diagnoses Date/Ti me CV CAROTID CEREBRAL ANGIOGRA M BILATERAL History of TIA (transient ischemic attack) documented as of this encounter Visit Diagnoses Not on filedocumented in this encounter Care Teams Telecine Operator Relationship Specialty Start Date End Date Araceli Doyle MD PCP - General Family Medicine 03/19/22 documented as of this encounter
--- OUTSIDE RECORDS SUMMARY | 2025-09-14 | XMS_ITS | Encounter Summary ---
Author Organization [facility] Address [address] [place] [address] Care Team Providers Care Hospice Music Therapist Name Role Phone Araceli Doyle MD Primary Care Provider [phone] Encounter Details Date Type Department Care Team ([facility] Contact Info) Description 08/18/2025 Patient rounding ([facility]) [facility] [place] UR[facility] 3000 [facility] 340 [place] [address] Tahira Jones MA Social History Tobacco Use Types Packs/Day Years Used Date Smoking Tobacco: Never Passive Smoke Exposure: Past Smokeless Tobacco: Never Alcohol Use Standard Drinks/Week Comments Not Currently 0 (1 standard drink = 0.6 oz pur e alcohol) [facility] Utilities Answer Date Recorded In the past 12 months has e electric, gas, oil, or water company [...] GED or equivalent No 07/27/2025 Preferred Language Spanish 07/27/2025 Comments Unknown Sex and Gender Information Value Date Recorded Sex Assigned at Not on file Legal Sex Female 10:07 AM EDT Gender Identity Not on file Sexual Orientation Not on file documented as of this encounter Progress Notes * Tahira Jones MA - 08/18/2025 11:21 AM EDT A [employer] message has been sent to the patient for PATIENT ROUNDING with [facility]. documented in this encounter Plan of Treatment Upcoming Encounters Date Type Department Care Team (Late st Contact Info) Description 09/27/2025 10:00 AM EST Office Visit [facility] [place] NEUROLOGY [address]20 [facility] [address] [place] [address] Charu Hernandez, SENIOR PLANNING MANAGER 1720 [facility] [address] [address] 11/01/2025 11:00 AM EST Office Visit [facility] [place] UROLOGY 3000 [facility] [address] [place] [phone] Demi Palomares PA-C 3000 [facility] [address] [place] [address] 11/20/2025 2:00 PM EST Appointment [facility] CARDIOVASCULAR LAB [address]20 [facility] 3rd [place] [address] 11/29/2025 9:30 AM EST Office Visit [facility] [place] CARDIOLOGY [address] [place] [address] Alaina Hayes, SENIOR PLANNING MANAGER [address] [place], [place] [address] 12/13/2025 1:45 PM EST Office Visit [facility] [place] ENDOCRINOLOGY [address] [address] Katrina Garrett MD [address] [phone] Scheduled Procedures Name Priority Associated Diagnoses Date/Ti me CV CAROTID CEREBRAL ANGIOGRA M BILATERAL History of TIA (transient ischemic attack) documented as of this encounter Visit Diagnoses Not on filedocumented in this encounter Care Teams Hospice Music Therapist Relationship Specialty Start Date End Date Araceli Doyle MD PCP - General Family Medicine 03/19/22 documented as of this encounter
--- OUTSIDE RECORDS SUMMARY | 2025-09-14 | XMS_ITS | Encounter Summary ---
Author Organization [facility] Address [address] [place] [address] Care Team Providers Care Custom Wood Stair Builder Name Role Phone Araceli Doyle MD Primary Care Provider [phone] Encounter Details Date Type Department Care Team (Latest Contact Info) Description 08/28/2025 Travel Social History Tobacco Use Types Packs/Day Years Used Date Smoking Tobacco: Never Passive Smoke Exposure: Past Smokeless Tobacco: Never Alcohol Use Standard Drinks/Week Comments Not Currently 0 (1 standard drink = 0.6 oz pur e alcohol) [facility] Utilities Answer Date Recorded In the past 12 months has [employer], gas, oil, or water [employer] threatened to shut off services in your [...] care, and heating? Not very hard 08/22/2025 [facility] [place] of Occupat ional Health - Occupational Stress [...] GED or equivalent No 08/22/2025 Preferred Language Cuban 08/22/2025 PHQ-2 Answer Date Recorded Patient Health [...] Description 09/27/2025 10:00 AM EST Office Visit [facility] NEUROLOGY [address] [facility] [address] [place] [address] Charu Hernandez, PAEDIATRICIAN 1720 [facility] [address] [address] 11/01/2025 11:00 AM EST Office Visit [facility] UROLOGY 3000 [facility] [address] [place] [address] Demi Palomares PA-C 3000 [facility] [address] [place] [address] 11/20/2025 2:00 PM EST Appointment [facility] CARDIOV[facility]ULAR LAB [address]20 [facility] 3rd [place] [address] 11/29/2025 9:30 AM EST Office Visit [facility] CARDIOLOGY [address] [place] [address] Alaina Hayes, PAEDIATRICIAN [address] [place] [address] 12/13/2025 1:45 PM EST Office Visit [facility] ENDOCRINOLOGY [address] [address] Katrina Garrett MD [address] [phone] Scheduled Procedures Name Priority Associated Diagnoses Date/Ti me CV CAROTID CEREBRAL ANGIOGRA M BILATERAL History of TIA (transient ischemic attack) documented as of this encounter Visit Diagnoses Not on filedocumented in this encounter Care Teams Custom Wood Stair Builder Relationship Specialty Start Date End Date Araceli Doyle MD PCP - General Family Medicine 03/19/22 documented as of this encounter
--- OUTSIDE RECORDS SUMMARY | 2025-09-14 00:01 | XMS_ITS | Encounter Summary ---
Author Organization [facility] Address [address] [place] [id number] Care Team Providers Care Sr. Payroll Processor Name Role Phone Araceli Doyle MD Primary Care Provider [phone] Reason for Visit * Reason Comments Med Refill Encounter Details Date Type Department Care Team (Late Contact Info) Description 09/12/2024 Refill [facility] ENDOCRINOLOGY [address] [address] Katrina Garrett MD 3084 [facility] 100 [place] [phone] Social History Tobacco Use Types Packs/Day Years [...] Encounters Date Type Department Care Team (Late Contact Info) Description 09/27/2025 10:00 AM EST Office Visit [facility] NEUROLOGY [address] [place] [address] [address] [place] [address] Charu Hernandez APRN 1720 [facility] [address] [address] 11/01/2025 11:00 AM EST Office Visit [facility] UROLOGY [address] [facility] [address] [place] [address] Demi Palomares PA-C [address] [facility] [address] [place] [address] 11/20/2025 2:00 PM EST Appointment [facility] CARDIOVASCULAR LAB [address] 3rd [place] [address] 11/29/2025 9:30 AM EST Office Visit [facility] CARDIOLOGY [address] [place] [address] Alaina Hayes APRN [address] [place] [address] 12/13/2025 1:45 PM EST Office Visit [facility] ENDOCRINOLOGY [address] [facility] [address] [place] [phone] Katrina Garrett MD [address] [facility] [address] [place] [phone] Scheduled Procedures Name Priority Associated Diagnoses Date/Ti me CV CAROTID CEREBRAL ANGIOGRA M BILATERAL History of TIA (transient ischemic attack) documented as of this encounter Visit Diagnoses Not on filedocumented in this encounter Care Teams Sr. Payroll Processor Relationship Specialty Start Date End Date Araceli Doyle MD PCP - General Family Medicine 03/19/22 documented as of this encounter
--- OUTSIDE RECORDS SUMMARY | 2025-09-14 00:01 | XMS_ITS | Encounter Summary ---
Author Organization [facility] Address [address] [place] [address] Care Team Providers Care Manager Psychology Name Role Phone Araceli Doyle MD Primary Care Provider [phone] Encounter Details Date Type Department Care Team ([facility] st Contact Info) Description 08/17/2025 Telephone [facility] CARDIOLOGY [address] [place] [address] Lou [place] MD [address] [place] [address] Social History Tobacco Use Types Packs/Day Years Used Date Smoking Tobacco: Never Passive Smoke Exposure: Past Smokeless Tobacco: Never Alcohol Use Standard Drinks/Week Comments Not Currently 0 (1 standard drink = 0.6 oz pur e alcohol) [facility] Utilities Answer Date Recorded In the past 12 months has [employer], gas, oil, or water [employer] - how [employer] [place] threatened to shut off services in your [...] GED or equivalent No 07/27/2025 Preferred Language Belarusian 07/27/2025 Comments Unknown Sex and Gender Information Value Date Recorded Sex Assigned at Not on file Legal Sex Female 10:07 AM EDT Gender Identity Not on file Sexual Orientation Not on file documented as of this encounter Miscellaneous Notes * Telephone Encounter - Joey Romero RegSched Rep - 08/17/2025 4:12 PM EDT Lvm pt requested a hospital follow up appt with Dr. [place] we have an opening 08/21 @ 1:45 if still available if pt calls back HUB ok to schedule. documented in this encounter Plan of Treatment Upcoming Encounters Date Type Department Care Team (Late st Contact Info) Description 09/27/2025 10:00 AM EST Office Visit [facility] NEUROLOGY [address] [facility] [address] [place] [address] Charu Hernandez, EMERGENCY DEPARTMENT RN [address] [facility] [address] [address] 11/01/2025 11:00 AM EST Office Visit [facility] UROLOGY [address] [facility] [address] [place] [phone] Demi Palomares PA-C 3000 [facility] [address] [place] [address] 11/20/2025 2:00 PM EST Appointment [facility] CARDIOVASCULAR LAB [address] [facility] 3rd [place] [address] 11/29/2025 9:30 AM EST Office Visit [facility] CARDIOLOGY [address] [place] [phone] Alaina Hayes, EMERGENCY DEPARTMENT RN [address] [place] [address] 12/13/2025 1:45 PM EST Office Visit [facility] ENDOCRINOLOGY [address] [facility] [address] [place] [phone] Katrina Garrett MD [address] [facility] [address] [place] [phone] Scheduled Procedures Name Priority Associated Diagnoses Date/Ti me CV CAROTID CEREBRAL ANGIOGRA M BILATERAL History of TIA (transient ischemic attack) documented as of this encounter Visit Diagnoses Not on filedocumented in this encounter Care Teams Manager Psychology Relationship Specialty Start Date End Date Araceli Doyle MD PCP - General Family Medicine 03/19/22 documented as of this encounter
--- OUTSIDE RECORDS SUMMARY | 2025-09-14 00:02 | XMS_ITS | Encounter Summary ---
Author Organization [facility] Address [address] [place] [address] Care Team Providers Care Manager Fashion Name Role Phone Araceli Doyle MD Primary Care Provider Encounter Details Date Type Department Care Team (Latest Contact Info) Description 07/26/2025 Travel Social History Tobacco Use Types Packs/Day Years Used Date Smoking Tobacco: Never Passive Smoke Exposure: Past Smokeless Tobacco: Never Alcohol Use Standard Drinks/Week Comments Never 0 (1 standard drink = 0.6 oz pur e alcohol) [employer] Utilities Answer Date Recorded In the past 12 months has [employer], gas, oil, or water [employer] threatened to shut off services in your [...] GED or equivalent No 07/27/2025 Preferred Language Italian 07/27/2025 Comments Unknown Sex and Gender Information Value Date Recorded Sex Assigned at Not on file Legal Sex Female 10:07 AM EDT Gender Identity Not on file Sexual Orientation Not on file documented as of this encounter Functional Status * Question Answer Date of Assessment Author 1. Wish to be (Past 1 Month) No 025 11:35 PM EDT Gage Cox, CORY 2. Non-Specific Active Suici susi Thoughts (Past 1 Month) No 07/26/2025 11:35 PM EDT Jessica Cox, RN * Calculated C-SSRS Risk Score (Lifetime/Recent) Answer Date of Assessment Author No Risk Indicated 07/26/2025 11:35 PM EDT Gage Cox RN * Maries Suicide Severity Rating Scale (Screener/Recent Self-Report) Question Answer Date of Assessment Author 6. Suicidal Behavior (Lifetime) No 11:35 PM EDT Gage Cox RN documented as of this encounter Plan of Treatment Upcoming Encounters Date Type Department Care Team (Late st Contact Info) Description 09/27/2025 10:00 AM EST Office Visit [facility] NEUROLOGY [address] [facility] [address] [place] [address] Charu Hernandez, INLETTER [address] [facility] [address] [address] 11/01/2025 11:00 AM EST Office Visit [facility] UROLOGY [address] [facility] [address] [place] [phone] Demi Palomares PA-C [address] [facility] [address] [place] [address] 11/20/2025 2:00 PM EST Appointment [facility] CARDIOVASCULAR LAB [address] [facility] 3rd [place] [address] 11/29/2025 9:30 AM EST Office Visit [facility] CARDIOLOGY [address] [place] [address] Alaina Hayes, INLETTER 24 [place] [address] 12/13/2025 1:45 PM EST Office Visit [facility] ENDOCRINOLOGY [address] [address] Katrina Garrett MD [address] [phone] Scheduled Procedures Name Priority Associated Diagnoses Date/Ti me CV CAROTID CEREBRAL ANGIOGRA M BILATERAL History of TIA (transient ischemic attack) documented as of this encounter Visit Diagnoses Not on filedocumented in this encounter Care Teams Manager Fashion Relationship Specialty Start Date End Date Araceli Doyle MD PCP - General Family Medicine 03/19/22 documented as of this encounter
--- OUTSIDE RECORDS SUMMARY | 2025-09-14 00:02 | XMS_ITS | Encounter Summary ---
Author Organization [facility] Address [address] [place] [address] Care Team Providers Care Box Truck Washer Name Role Phone Araceli Doyle MD Primary Care Provider [phone] Reason for Visit * Reason Onset Date Comments Med Refill 07/19/2025 Encounter Details Date Type Department Care Team (Late st Contact Info) Description 07/19/2025 Refill [facility] ENDOCRINOLOGY [address] [facility] [address] [place] [address] Katrina Garrett MD [address] [facility] [address] [place] [address] Microalbuminuria; Type 2 diabetes mellitus with hyperglycemia, with long-term current use of insulin Social History Tobacco Use Types Packs/Day Years [...] encounter Miscellaneous Notes * Telephone Encounter - Salome Urias - 07/19/2025 10:49 AM EDT Rx Refill Note Requested Prescriptions Pending Prescriptions Disp Refills Farxiga 5 MG tablet tablet 30 tablet 5 Sig: Take 1 tablet by mouth Daily. Last office visit with prescribing clinician: 04/19/2025 Next office visit with prescribing clinician: 08/22/2025 documented in this encounter Plan of Treatment Upcoming Encounters Date Type Department Care Team (Late st Contact Info) Description 09/27/2025 10:00 AM EST Office Visit [facility] NEUROLOGY [address] [facility] [address] [place] [address] Charu Hernandez, TITLE CLOSER [address] [facility] [address] [place] [address] 11/01/2025 11:00 AM EST Office Visit [facility] UROLOGY 3000 [facility] [address] [place] [address] Demi Palomares PA-C 3000 [facility] [address] [place] [address] 11/20/2025 2:00 PM EST Appointment [facility] CARDIOVASCULAR LAB [address] [facility] 3rd [place] [address] 11/29/2025 9:30 AM EST Office Visit [facility] CARDIOLOGY [address] [place] [address] Alaina Hayes, TITLE CLOSER [address] [place] [address] 12/13/2025 1:45 PM EST Office Visit [facility] ENDOCRINOLOGY [address] [phone] Katrina Garrett MD [address] [phone] Scheduled Procedures Name Priority Associated Diagnoses Date/Ti me CV CAROTID CEREBRAL ANGIOGRA M BILATERAL History of TIA (transient ischemic attack) documented as of this encounter Visit Diagnoses Diagnosis Microalbuminuria Proteinuria Type 2 diabetes mellitus with hyperglycemia, with long-term current use of insulin documented in this encounter Care Teams Box Truck Washer Relationship Specialty Start Date End Date Araceli Doyle MD PCP - General Family Medicine 03/19/22 documented as of this encounter
--- OUTSIDE RECORDS SUMMARY | 2025-09-14 00:02 | XMS_ITS | Encounter Summary ---
Author Organization [facility] Address [address] [place] [address] Care Team Providers Care Peoplesoft Hcm Consultant Name Role Phone Araceli Doyle MD Primary Care Provider [phone] Encounter Details Date Type Department Care Team ([facility] st Contact Info) Description 07/27/2025 Readmission Management [facility] NURSE CALL CENTER [address] [place] [address] Mar Guzman, RN Social History Tobacco Use Types Packs/Day Years Used Date Smoking Tobacco: Never Passive Smoke Exposure: Past Smokeless Tobacco: Never Alcohol Use Standard Drinks/Week Comments Never 0 (1 standard drink = 0.6 oz pur e alcohol) [facility] Utilities Answer Date Recorded In the past 12 months has [employer], gas, oil, or water [employer] threatened to shut off services in your [...] GED or equivalent No 07/27/2025 Preferred Language Kazakh 07/27/2025 Comments Unknown Sex and Gender Information Value Date Recorded Sex Assigned at Not on file Legal Sex Female 10:07 AM EDT Gender Identity Not on file Sexual Orientation Not on file documented as of this encounter Functional Status documented as of this encounter Miscellaneous Notes * Outreach Note - Mar Guzman RN - 07/27/2025 8:24 PM EDT Prep Survey Flowsheet Row Responses [facility] facility patient discharged from? [facility] Is LACE score less than 10 ? No Eligibility Readm Mgmt Discharge diagnosis Facial droop/TIA Does the patient have one of the following disease processes/diagnoses(primary or secondary)? Stroke Does the patient have Home health ordered? No Is there a DME ordered? No Prep survey completed? Yes MAR Kraus - Registered Nurse documented in this encounter Plan of Treatment Upcoming Encounters Date Type Department Care Team (Late st Contact Info) Description 09/27/2025 10:00 AM EST Office Visit [facility] NEUROLOGY [address] [facility] [address] [place] [address] Charu Hernandez, SALES OPERATIONS SPECIALIST [address] [facility] [address] [address] 11/01/2025 11:00 AM EST Office Visit [facility] UROLOGY [address] [facility] [address] [place] [address] Demi Palomares PA-C 3000 [facility] [address] [place] [address] 11/20/2025 2:00 PM EST Appointment [facility] CARDIOVASCULAR LAB [address] [facility] 3rd [place] [address] 11/29/2025 9:30 AM EST Office Visit [facility] CARDIOLOGY [address] [place] [address] Alaina Hayes, SALES OPERATIONS SPECIALIST [address] [place] [address] 12/13/2025 1:45 PM EST Office Visit [facility] ENDOCRINOLOGY [address] [facility] [address] [place] [phone] Katrina Garrett MD [address] [facility] [address] [place] [phone] Scheduled Procedures Name Priority Associated Diagnoses Date/Ti me CV CAROTID CEREBRAL ANGIOGRA M BILATERAL History of TIA (transient ischemic attack) documented as of this encounter Visit Diagnoses Not on filedocumented in this encounter Care Teams Peoplesoft Hcm Consultant Relationship Specialty Start Date End Date Araceli Doyle MD PCP - General Family Medicine 03/19/22 documented as of this encounter
--- OUTSIDE RECORDS SUMMARY | 2025-09-14 00:03 | XMS_ITS | Encounter Summary ---
Author Organization [facility] Address [address] [place] [address] Care Team Providers Care National Accounts Recruiter Name Role Phone Araceli Doyle MD Primary Care Provider Encounter Details Date Type Department Care Team (Late st Contact Info) Description 08/28/2025 Refill [facility] UROLOGY [address] [address] Demi Palomares PA-C 3000 [facility] [address] [place] [address] Abnormal urinalysis (Primary Dx) Social History Tobacco Use Types Packs/Day Years Used Date Smoking Tobacco: Never Passive Smoke Exposure: Past Smokeless Tobacco: Never Alcohol Use Standard Drinks/Week Comments Not Currently 0 (1 standard drink = 0.6 oz pur e alcohol) [facility] Utilities Answer Date Recorded In the past 12 months has [employer], gas, oil, or water [employer] threatened to shut off services in your [...] care, and heating? Not very hard 08/22/2025 [employer] of Occupat ional Health - Occupational Stress [...] GED or equivalent No 08/22/2025 Preferred Language Citizen Of [place] 08/22/2025 PHQ-2 Answer Date Recorded Patient Health Questionnaire-2 Score 0 08/22/2025 Comments Unknown Sex and Gender Information Value Date Recorded Sex Assigned at Not on file Legal Sex Female 10:07 AM EDT Gender Identity Not on file Sexual Orientation Not on file documented as of this encounter Miscellaneous Notes * Telephone Encounter - Tahira Jones MA - 08/28/2025 1:31 PM EDT Pt here today for Urodynamics study. UA dip showed positive Leukocytes. If no symptoms pt is to proced with study if symptoms pt is to reschedule. Urine send for culture and Macrobid sent to pharmacy. Note reviewed. 1+ leuks. Guidance 08/17 was negative. If no symptoms proceed with Urodynamics. Sending urine for culture. Treating with Macrobid in the meantime, just in case. Demi Palomares PA-C documented in this encounter Plan of Treatment Upcoming Encounters Date Type Department Care Team (Late st Contact Info) Description 09/27/2025 10:00 AM EST Office Visit [facility] NEUROLOGY [address]20 [facility] [address] [place] [phone] Charu Hernandez, GAMALIEL [address] [facility] [address] [address] 11/01/2025 11:00 AM EST Office Visit [facility] UROLOGY [address] [facility] [address] [place] [address] Demi Palomares PA-C [address] [facility] [address] [place] [address] 11/20/2025 2:00 PM EST Appointment [facility] CARDIOVASCULAR LAB [address] [facility] [address] 3rd [place] [address] 11/29/2025 9:30 AM EST Office Visit [facility] CARDIOLOGY [address] [place] [address] Alaina Hayes APRN [address] [place] [address] 12/13/2025 1:45 PM EST Office Visit [facility] ENDOCRINOLOGY [address] [facility] [address] [place] [phone] Katrina Garrett MD 30[address] [facility] [address] [place] [phone] Scheduled Procedures Name Priority Associated Diagnoses Date/Ti me CV CAROTID CEREBRAL ANGIOGRA M BILATERAL History of TIA (transient ischemic attack) documented as of this encounter Visit Diagnoses Diagnosis Abnormal urinalysis- Primary Other nonspecific finding on examination of urine documented in this encounter Care Teams National Accounts Recruiter Relationship Specialty Start Date End Date Araceli Doyle MD PCP - General Family Medicine 03/19/22 documented as of this encounter
--- OUTSIDE RECORDS SUMMARY | 2025-09-14 00:03 | XMS_ITS | Encounter Summary ---
Author Organization [facility] Address [address] [place] [address] Care Team Providers Care Fabric Stretcher Name Role Phone Araceli Doyle MD Primary Care Provider [phone] Reason for Visit * Reason Onset Date Comments CIRO DIAZ - CALLBACK 09/11/2025 Encounter Details Date Type Department Care Team (Late st Contact Info) Description 09/11/2025 Telephone [facility] UROLOGY [address] [facility] [address] [place] [address] Ciro Diaz PA-C 3000 [facility] [address] [place] [address] CIRO DIAZ - CALLBACK Social History Tobacco Use Types Packs/Day Years Used Date Smoking Tobacco: Never Passive Smoke Exposure: Past Smokeless Tobacco: Never Alcohol Use Standard Drinks/Week Comments Not Currently 0 (1 standard drink = 0.6 oz pur e alcohol) [facility] Utilities Answer Date Recorded In the past 12 months has [employer], [employer], oil, or water [employer] threatened to shut off services in your [...] care, and heating? Not very hard 08/22/2025 [facility] - Occupational Stress Questionnaire Answer Date [...] GED or equivalent No 08/22/2025 Preferred Language Micronesian 08/22/2025 PHQ-2 Answer Date Recorded Patient Health Questionnaire-2 Score 0 08/22/2025 Comments Unknown Sex and Gender Information Value Date Recorded Sex Assigned at Not on file Legal Sex Female 10:07 AM EDT Gender Identity Not on file Sexual Orientation Not on file documented as of this encounter Miscellaneous Notes * Telephone Encounter - Zara Mackenzie MA - 09/11/2025 12:55 PM EDT Patient stopped by office for samples. Was unable to speak with patient in office. Called and LVM for patient informing her I reached out to the 180 rep. Supplies will be sent overnight. If she doesn't hear from someone in a day or so to please reach out to our office. Advised the patient if she has any questions or concerns to please reach back out HUB can relay if no further questions from patient, HUB can document call was returned and patient voiced understanding, * Telephone Encounter - Juju Herrera RegSched Rep - 09/11/2025 10:20 AM EDT Hub staff attempted to follow warm transfer process and was unsuccessful Caller: KAYLEE HOFF Relationship to patient: SELF Best call back number: Telephone Information: Patient is needing: PT CALLED TO S/W BRADY IN REGARDS TO MYCHART MESSAGES ABOUT CATHETERS, PLEASE CALL BACK. documented in this encounter Plan of Treatment Upcoming Encounters Date Type Department Care Team (Late st Contact Info) Description 09/27/2025 10:00 AM EST Office Visit [facility] NEUROLOGY [address] [facility] [address] [place] [address] Charu Hernandez, APPLICATION COUNSELOR [address] [facility] [address] [place] [address] 11/01/2025 11:00 AM EST Office Visit [facility] UROLOGY [address] [facility] [address] [place] [address] Ciro Diaz PA-C 3000 [facility] [address] [place] [address] 11/20/2025 2:00 PM EST Appointment [facility] CARDIOVASCULAR LAB [address] [facility] 3rd [place] [address] 11/29/2025 9:30 AM EST Office Visit [facility] CARDIOLOGY [address] [place] [address] Alaina Hayes, APPLICATION COUNSELOR [address] [place] [address] 12/13/2025 1:45 PM EST Office Visit [facility] ENDOCRINOLOGY 30[address] [facility] [address] [place] [address] Katrina Garrett MD [address] [facility] [address] [place] [phone] Scheduled Procedures Name Priority Associated Diagnoses Date/Ti me CV CAROTID CEREBRAL ANGIOGRA M BILATERAL History of TIA (transient ischemic attack) documented as of this encounter Visit Diagnoses Not on filedocumented in this encounter Care Teams Fabric Stretcher Relationship Specialty Start Date End Date Araceil Doyle MD PCP - General Family Medicine 03/19/22 documented as of this encounter
--- OUTSIDE RECORDS SUMMARY | 2025-09-14 00:03 | XMS_ITS | Encounter Summary ---
Author Organization [facility] Address [address] [place] [address] Care Team Providers Care Measurement Supervisor Name Role Phone Araceli Doyle MD Primary Care Provider [phone] Encounter Details Date Type Department Care Team (Latest Contact Info) Description 09/13/2025 Travel Social History Tobacco Use Types Packs/Day Years Used Date Smoking Tobacco: Never Passive Smoke Exposure: Past Smokeless Tobacco: Never Alcohol Use Standard Drinks/Week Comments Not Currently 0 (1 standard drink = 0.6 oz pur e alcohol) [facility] Utilities Answer Date Recorded In the past 12 months has [employer], gas, oil, or water [employer] threatened to shut off services in your [...] care, and heating? Not very hard 08/22/2025 [facility] [place] of Occupat ional Health - Occupational Stress [...] GED or equivalent No 08/22/2025 Preferred Language Mauritanian 08/22/2025 PHQ-2 Answer Date Recorded Patient Health [...] Visit [facility] NEUROLOGY [address] [facility] [address] [place] [address] Charu Hernandez, BOAT ENGINES INSTALLER [address]20 [facility] [address] [address] 11/01/2025 11:00 AM EST Office Visit [facility] UROLOGY [address] [facility] [address] [place] [phone] Demi Palomares PA-C 3000 [facility] [address] [place] [address] 11/20/2025 2:00 PM EST Appointment [facility] CARDIOVASCULAR LAB [address] [facility] 3rd [place] [address] 11/29/2025 9:30 AM EST Office Visit [facility] CARDIOLOGY [address] [place] [address] Alaina Hayes, BOAT ENGINES INSTALLER [address] [place] [address] 12/13/2025 1:45 PM EST Office Visit [facility] ENDOCRINOLOGY [address] [address] Katrina Garrett MD [address] [phone] Scheduled Procedures Name Priority Associated Diagnoses Date/Ti me CV CAROTID CEREBRAL ANGIOGRA M BILATERAL History of TIA (transient ischemic attack) documented as of this encounter Visit Diagnoses Not on filedocumented in this encounter Care Teams Measurement Supervisor Relationship Specialty Start Date End Date Araceli Doyle MD PCP - General Family Medicine 03/19/22 documented as of this encounter
--- OUTSIDE RECORDS SUMMARY | 2025-09-14 00:03 | XMS_ITS | Encounter Summary ---
Author Organization [facility] Address [address] [place] [address] Care Team Providers Care Telemetry Tech Name Role Phone Araceli Doyle MD Primary Care Provider [phone] Encounter Details Date Type Department Care Team (Latest Contact Info) Description 09/11/2025 Travel Social History Tobacco Use Types Packs/Day Years Used Date Smoking Tobacco: Never Passive Smoke Exposure: Past Smokeless Tobacco: Never Alcohol Use Standard Drinks/Week Comments Not Currently 0 (1 standard drink = 0.6 oz pur e alcohol) [facility] Utilities Answer Date Recorded In the past 12 months has oLyfe, gas, oil, or water [employer] threatened to shut off services in your [...] care, and heating? Not very hard 08/22/2025 [facility] [place] of Occupat ional Health - Occupational Stress [...] GED or equivalent No 08/22/2025 Preferred Language Barbadian 08/22/2025 PHQ-2 Answer Date Recorded Patient Health [...] Description 09/27/2025 10:00 AM EST Office Visit [facility] NEUROLOGY [address] [facility] [address] [place] [address] Charu Hernandez, FINAL COAT SPRAYER [address] [facility] [address] [place] [address] 11/01/2025 11:00 AM EST Office Visit [facility] UROLOGY [address] [facility] [address] [place] [phone] Demi Palomares PA-C [address] [facility] [address] [place] [address] 11/20/2025 2:00 PM EST Appointment [facility] [address] [facility] 3rd [place] [phone] 11/29/2025 9:30 AM EST Office Visit [facility] CARDIOLOGY [address] [place] [address] Alaina Hayes, FINAL COAT SPRAYER [address] [place] [address] 12/13/2025 1:45 PM EST Office Visit [facility] ENDOCRINOLOGY [address] [address] Katrina Garrett MD [address] [phone] Scheduled Procedures Name Priority Associated Diagnoses Date/Ti me CV CAROTID CEREBRAL ANGIOGRA M BILATERAL History of TIA (transient ischemic attack) documented as of this encounter Visit Diagnoses Not on filedocumented in this encounter Care Teams Telemetry Tech Relationship Specialty Start Date End Date Araceli Doyle MD PCP - General Family Medicine 03/19/22 documented as of this encounter
--- OUTSIDE RECORDS SUMMARY | 2025-09-14 00:03 | XMS_ITS | Encounter Summary ---
[facility] Address [address] [place] [id number] Care Team Providers Care Collision Repairer Name Role Phone Araceli Doyle MD Primary Care Provider [phone] Encounter Details Date Type Department Care Team (Late st Contact Info) Description 04/19/2025 Results Follow-Up [facility] ENDOCRINOLOGY [address] [facility] [address] [place] [address] Katrina Garrett MD [address] [facility] [address] [place] [phone] Social History Tobacco Use Types Packs/Day Years [...] encounter Miscellaneous Notes * Telephone Encounter - Malissa Lazaro ([place]) - 04/20/2025 9:08 AM EDT SPOKE TO PT-SHE VOICED UNDERSTANDING documented in this encounter Plan of Treatment Upcoming Encounters Date Type Department Care Team (Late st Contact Info) Description 09/27/2025 10:00 AM EST Office Visit [facility] [address] [facility] [address] [place] [address] Charu Hernandez, ELECTRIC REFRIGERATOR PREPARER [address] [facility] [address] [place] [address] 11/01/2025 11:00 AM EST Office Visit [facility] UROLOGY [address] [facility] [address] [place] [address] Demi Palomares PA-C [address] [facility] [address] [place] [address] 11/20/2025 2:00 PM EST Appointment [facility] [address]rd [place] [address] 11/29/2025 9:30 AM EST Office Visit [facility] CARDIOLOGY [address] [place] [phone] Alaina Hayes, ELECTRIC REFRIGERATOR PREPARER [address] [place] [address] 12/13/2025 1:45 PM EST Office Visit [facility] ENDOCRINOLOGY [address] [facility] [address] [place] [phone] Katrina Garrett MD [address] [phone] Scheduled Procedures Name Priority Associated Diagnoses Date/Ti tx CV CAROTID CEREBRAL ANGIOGRA M BILATERAL History of TIA (transient ischemic attack) documented as of this encounter Visit Diagnoses Diagnosis Microalbuminuria- Primary Proteinuria Type 2 diabetes mellitus with hyperglycemia, with long-term current use of insulin documented in this encounter Care Teams Collision Repairer Relationship Specialty Start Date End Date Araceli Doyle MD PCP - General Family Medicine 03/19/22 documented as of this encounter
--- OUTSIDE RECORDS SUMMARY | 2025-09-14 00:04 | XMS_ITS | Clinical Summary ---
Author Organization [facility] Address [address] [id number] Care Team Providers Care Armament Installer Name Role Phone Araceli Doyle MD Primary Care Provider [phone] Allergies Active Allergy Reactions Criticality Noted Date Comments Codeine GI Intolerance 03/19/2022 Vomiting Tamsulosin Hives High 09/13/2025 Sulfa Antibiotics GI Intolerance 03/19/2022 vomiting Medications venlafaxine XR (EFFEXOR-XR) 75 MG 24 hr capsule Take 1 capsule by mouth Daily. 022 Active atorvastatin (LIPITOR) 80 MG tablet Take 1 tablet by mouth Daily. 023 Active lisinopril (PRINIVIL,ZESTRIL ) 10 MG tablet Take 1 tablet by mouth Daily. 023 Active Continuous Glucose Sensor (FreeStyle Jovita 3 Plus Sensor) Use as directed every 15 days 6 each 025 Active estradiol (VAGIFEM) 10 MCG tablet vaginal tablet Insert 1 tablet into the vagina 2 (Two) Times a Week. 025 Active Insulin Glargine (BASAGLAR KWIKPEN) 100 UNIT/ML injection pen Inject 48 Units under the skin into the appropriate area as directed Daily. 45 mL 1 025 Active Additional Information Patient taking differently: 40 UnitsSubcutaneous Daily,Takes 40 in morning and 16 units at night, Reported on 09/13/2025 Continuous Glucose Sensor (FreeStyle Jovita 3 Sensor) misc Inject 1 each under the skin into the appropriate area as directed Every 14 (Fourteen) Days. 2 each 6 025 Active aspirin 81 MG chewable tablet Chew 1 tablet Daily. 90 tablet 2 Active clopidogrel (PLAVIX) 75 MG tablet Take 1 tablet by mouth Daily. 90 tablet 2 Active ezetimibe (Zetia) 10 MG tabletIndications :Mixed hyperlipidemia Take 1 tablet by mouth Daily. 30 tablet 11 025 2025 Active cetirizine (zyrTEC) 10 MG tablet Take 1 tablet by mouth Daily. Active carvedilol (COREG) 12.5 MG tablet Take 1 tablet by mouth 2 (Two) Times a Day With Meals for 30 days. 60 tablet 1 025 2024 Active bethanechol (URECHOLINE) 10 MG tabletIndications :Incomplete bladder emptying Take 1 tablet by mouth 3 (Three) Times a Day. 90 tablet 1 Active cefuroxime (CEFTIN) 500 MG tabletIndications :Urinary tract infection, bacterial Take 1 tablet by mouth 2 (Two) Times a Day for 10 days. 20 tablet 025 2024 Active carvedilol (COREG) 25 MG tablet Take 1 tablet by mouth Every 12 (Twelve) Hours. 023 2024 Discontin ued(Stop Taking at Discharge ) Mounjaro 7.5 MG/0.5ML solution auto-injector Inject 7.5 mg under the skin into the appropriate area as directed 1 (One) Time Per Week. 6 mL 1 025 2024 Discontin ued(Stop Taking at Discharge ) tamsulosin (FLOMAX) 0.4 MG capsule 24 hr capsuleIndication s:Incomplete bladder emptying Take 1 capsule by mouth Daily. 30 capsule 1 025 2024 Discontin ued(Aller gic response) nitrofurantoin, macrocrystal-mono hydrate, (Macrobid) 100 MG capsuleIndication s:Abnormal urinalysis Take 1 capsule by mouth 2 (Two) Times a Day for 7 days. 14 capsule 025 2024 Active Problems Problem Noted Date Diagnosed Date History of TIA (transient ischemic attack) 09/11 ICAO (internal carotid artery occlusion) Carotid stenosis, bilateral 08/09/2025 Assessment & Plan (08/09/2025 1:44 PM EDT): Orders: Ambulatory Referral to Vascular Surgery Transient ischemic attack (TIA) 07/27/2025 Assessment & Plan (08/09/2025 1:44 PM EDT): Facial droop 07/26/2025 Family history of early CAD 04/20/2024 Insomnia 06/29/2023 Hypersomnia 06/29/2023 Fatigue 06/29/2023 Diabetes type 2, uncontrolled 03/19/2022 Overview (03/19/2022): Last Assessment & Plan: Improving except now has some hypoglycemia in am. Will decrease basaglar in evening from 30 units to 27 units. Continue 40 units in am, metformin, tradjenta and farxiga. Calculus of gallbladder with out cholecystitis without obstruction 01/12/2020 Menopausal hot flushes 02/26/2019 Overview (06/29/2023): Last Assessment & Plan: Mood, irritability and hot flashes are doing significantly better with adding 37.5mg to regimen. Will continue. Type 2 diabetes mellitus with hyperlipidemia Toenail fungus 06/30/2017 Elevated LFTs 11/05/2016 Microalbuminuric diabetic nephropathy 11/05/2016 Vitamin D deficiency 11/05/2016 Breast implant rupture 10/20/2016 Overview (06/29/2023): Right saline implant Breast implant status 10/20/2016 Episode of recurrent major depressive disorder 1 12/21/2015 Overview (06/29/2023): Last Assessment & Plan: Change to effexor seems to be helping. Essential hypertension 10/20/2016 Assessment & Plan (08/09/2025 1:44 PM EDT): {Hypertension is (optional):[id number]} Mixed hyperlipidemia 10/20/2016 Assessment & Plan (08/09/2025 1:44 PM EDT): {Hyperlipidemia A/P Block (Optional):[id number]} Orders: ezetimibe (Zetia) 10 MG tablet; Take 1 tablet by mouth Daily. Lipid Panel; Future Type 2 diabetes mellitus with hyperglycemia 03/2016 Overview (06/29/2023): Last Assessment & Plan: Will increase am basaglar to 30 units. Resolved Problems Problem Noted Date Diagnosed Date Resolved Date Otitis media 04/20/2024 04/20/2024 Encounters Date Type Department Care Team Description 09/13/2025 1:30 PM EDT Office Visit [facility] [address] [facility] [address] [place] [phone] Ciro Diaz PA-C Incomplete bladder emptying (Primary Dx); Urinary tract infection, bacterial; Female cystocele 09/13/2025 Travel 09/11/2025 12:00 PM EDT Office Visit [facility]OS[facility] [address] [facility] [address] [place] [phone] Maulik Yun MD History of TIA (transient ischemic attack) (Primary Dx) 09/11/2025 Travel 09/11/2025 Telephone [facility] [address] [facility] [address] [place] [address] Ciro Diaz PA-C CIRO DIAZ - CALLBACK 08/28/2025 1:00 PM EDT Office Visit [facility] [address] [facility] [address] [place] [address] Incomplete bladder emptying (Primary Dx) 08/28/2025 Refill [facility] [address] [facility] [address] [place] [address] Ciro Diaz PAIsabellC Abnormal urinalysis (Primary Dx) 08/28/2025 Travel 08/23/2025 Readmission Management [facility] [address] [place] [address] Valerie Guzman, RN 08/22/2025 Telephone [facility]OCRINOLOG[facility] [address] [facility] [address] [place] [address] Katrina Garrett MD Appointment 08/21/2025 4:21 PM EDT - 08/23/2025 12:36 PM EDT Hospital Encounter [address] [place] [address] Ariel Washington MD Anderson, MD Jerad Mabry, MD Kamlesh Figueroa, Amanda Wren, DO TIA (transient ischemic attack) (Primary Dx) Discharge Disposition: Home or Self Care 08/21/2025 Travel 08/18/2025 Results Follow-Up [facility] [address] [place] [address] [address] [phone] Ciro Diaz, DONAVAN-Suraj 08/18/2025 Patient rounding (BH only) [facility] [address] [place] [address] [address] [place] [address] Tahira Jones MA 08/17/2025 9:30 AM EDT Office Visit [facility] [address] [place] [address] [address] [place] [address] Ciro Diaz PA-C Incomplete bladder emptying (Primary Dx); POP-Q stage 3 cystocele; Weakness of pelvic floor 08/17/2025 Telephone [facility] CARDIOLOG[facility] [address] [place] [address] Lou Washington MD 08/17/2025 Travel 08/15/2025 Readmission Management [facility] [address] [place] [address] Genevieve Holloway RN 08/09/2025 1:00 PM EDT Office Visit [facility] [place] [address] Alaina Hayes APRN Carotid stenosis, bilateral (Primary Dx); Transient ischemic attack (TIA); Mixed hyperlipidemia; Essential hypertension 08/09/2025 Travel 08/03/2025 Telephone [facility] C[facility] [address] [place] [address] [place] [address] Tamiko Boyle APRN A. SUMAYA - SCHEDULING REQUEST 08/01/2025 Readmission Management [facility] [address] [place] [address] Adele Hernandez RN 07/31/2025 Readmission Management [facility] CALL [facility] [address] [place] [address] Mt Pickard RN 07/28/2025 Telephone [facility] [address] [facility] [address] [place] [address] Charu Hernandez APRN APC NEURO STROKE DILLAN-[facility]ONER APPT 07/28/2025 Readmission Management [facility] CALL [facility] [address] [place] [address] Eleni Ewing RN 07/27/2025 Readmission Management [facility] [address] [place] [address] Valerie Guzman RN 07/26/2025 5:49 PM EDT - 07/27/2025 2:28 PM EDT Hospital Encounter [address] [place] [address] Heron Whatley DO Anwer, Mohammed A, MD Brown, Hannah, MD Crenshaw, Rachael D, MD Syncope and collapse (Primary Dx); Fall down stairs, initial encounter; Stenosis of both internal carotid arteries; Hyperglycemia; Ketonuria; Renal insufficiency; Elevated troponin; Transient ischemic attack (TIA) Discharge Disposition: Home or Self Care 07/26/2025 Travel 07/19/2025 Refill [facility] ENDOCRIN[facility] [address] [facility] [address] [place] [address] Katrina Garrett MD Microalbuminuria; Type 2 diabetes mellitus with hyperglycemia, with long-term current use of insulin from Last 3 Months Immunizations Immunization Administration Dates Next Due 31-influenza Vac Quardvalent Preservativ 09/25/2021,08/14/2017 Fluzone (or Fluarix & Flulav al for VFC) >6mos 07/18/2020,10/23/2018,09/24/2016 Hepatitis B Adult/Adolescent IM 01/05/2019,10/31 Influenza Injectable Mdck Pf Quad 09/08/2022,08/2019 Influenza recombinant 10/04/2024 Influenza, Unspecified 09/16/2024,2018,10/23/2018,09/16 Pneumococcal Conjugate 20-Va lent (PCV20) 01/29/2023 Pneumococcal Polysaccharide (PPSV23) 11/20/2021, 10/31/2016 Shingrix 01/29/2023 Tdap 10/31/2016 Family History Medical History Relation Name Comments Coronary artery disease Father Yadiel Callahan Diabetes Father Yadiel Callahan Heart attack Father Yadiel Callahan Hypertension Father Yadiel Callahan Cancer Maternal Grandmother [place] Heart attack Maternal Grandmother [place] Coronary artery disease Mother Jenin Callahan Diabetes Mother Jenni Callahan Relation Name Status Comments Father Yadiel Callahan Maternal Grandmother Alvin Mother Jenni Callahan Social History Tobacco Use Types Packs/Day Years Used Date Smoking Tobacco: Never Passive Smoke Exposure: Past Smokeless Tobacco: Never Tobacco Cessation:Counseling Given: Not Answered Alcohol Use Standard Drinks/Week Comments Not Currently 0 (1 standard drink = 0.6 oz pur e alcohol) [facility] Utilities Answer Date Recorded In the past 12 months has [employer], gas, oil, or water [employer] threatened to shut off services in your [...] care, and heating? Not very hard 08/22/2025 [facility] - Occupational Stress Questionnaire Answer Date [...] GED or equivalent No 08/22/2025 Preferred Language Swedish 08/22/2025 PHQ-2 Answer Date Recorded Patient Health Questionnaire-2 Score 0 08/22/2025 Comments Unknown Sex and Gender Information Value Date Recorded Sex Assigned at Not on file Legal Sex Female 10:07 AM EDT Gender Identity Not on file Sexual Orientation Not on file Last Filed Vital Signs Vital Sign Reading Time Taken Comments Blood Pressure 145/81 08/23/2025 9:05 AM EDT Pulse 87 08/23/2025 5:25 AM EDT Temperature 36.1 C (97 F) 09/11/2025 12:34 PM EDT Respiratory Rate 16 08/23/2025 9:05 AM EDT Oxygen Saturation 97% 08/23/2025 5:25 AM EDT Inhaled Oxygen Concentration - - Weight 72.9 kg (160 lb 12.8 oz) 025 12:34 PM EDT Height 170.2 cm (5' 7.01 ) 09/11/2025 1 2:34 PM EDT Body Mass Index 25.18 09/11/2025 12:34 PM EDT Plan of Treatment Upcoming Encounters Date Type Department Care Team (Late st Contact Info) Description 09/27/2025 10:00 AM EST Office Visit [facility] [address] [facility] [address] [place] [address] Charu Hernandez APRN [address] [facility] [address] [address] 11/01/2025 11:00 AM EST Office Visit [facility] [address] [facility] [address] [place] [phone] Ciro Diaz PA-C [address] [facility] [address] [place] [address] 11/20/2025 2:00 PM EST Appointment CARDIOVASCULAR LAB [address] [facility] [address] [place] [phone] 11/29/2025 9:30 AM EST Office Visit [facility] C[facility] [address] [place] [address] Alaina Hayes APRN [address] [place] [address] 12/13/2025 1:45 PM EST Office Visit [facility]OCRIN[facility] [address] [place] [phone] Katrina Garrett MD [address] [facility] [address] [place] [phone] Scheduled Procedures Name Priority Associated Diagnoses Date/Ti me CV CAROTID CEREBRAL ANGIOGRA M BILATERAL History of TIA (transient ischemic attack) Health Maintenance Due Date Last Done Comments Annual Gynecologic Pelvic an d Breast Exam 1963 DIABETIC FOOT EXAM 1973 COLON CANCER SCREENING 5 YEA R SIGMOIDOSCOPY [address] COLONOGRAPHY 2008 FECAL OCCULT BLOOD TEST 2008 FIT Testing (1 year) 2008 MAMMOGRAM 10/11/2020 10/11/2018, 09/17, 11/14/2016 PAP SMEAR 01/05/2022 01/05/2019 ANNUAL PHYSICAL 03/19/2022 COLOGUARD 01/20/2026 01/20/2023, 12/18, 12/14/2018 COLORECTAL CANCER SCREENING 01/20/2026 HEMOGLOBIN A1C 01/24/2026 07/27/2025, 06/0 02/2025, 03/18/2024, Additional history exists DIABETIC EYE EXAM 04/06/2026 04/06/2025 (Donavan wise-Reported (Performed Externally)), 03/30/2023, 03/26/2023 URINE MICROALBUMIN-CREATININ E RATIO (uACR) 04/19/2026 04/19/2025, 11/27/2023, 12/05/2022, Additional history exists LIPID PANEL 07/27/2026 07/27/2025, 060 02/2025, 11/27/2023, Additional history exists TDAP/TD VACCINES (2 - Td or Tdap) 10/31/2026 016 Pneumococcal Vaccine 50+ Completed 023, 11/20/2021, 10/31/2016 HEPATITIS C SCREENING Completed 07/26/2025 INFLUENZA VACCINE Completed 08/15/2025, , 09/16/2024, Additional history exists ZOSTER VACCINE Completed 08/15/2025, 01/29/2023 Procedures Procedure Name Priority Date/Time Associated Diagnosis Comments POCT GLUCOSE FINGERSTICK Routine 08/23/2025 11:36 AM EDT CBC AND DIFFERENTIAL Routine 08/23/2025 10:43 AM EDT CBC WITH AUTO DIFFERENTIAL Routine 08/23/2025 10:43 AM EDT MAGNESIUM [...] NECK STAT 08/21/2025 5:[address] ANGIOGRAM HEAD W AI ANALYSIS OF LVO STAT 08/21/2025 5:02 PM EDT SCANNED - TELEMETRY 08/21/2025 4 :51 PM EDT LIGHT BLUE TOP STAT 08/21/2025 4:37 PM EDT VASQUES TOP STAT 08/21/2025 4:37 PM EDT GOLD TOP - SST STAT 08/21/2025 4:37 PM EDT LAVENDER TOP STAT 08/21/2025 4:37 PM EDT DK GREEN TOP STAT 08/21/2025 4:37 PM EDT CBC AND DIFFERENTIAL STAT 08/21/2025 4:37 PM EDT CBC WITH AUTO DIFFERENTIAL STAT 08/21/2025 4:37 PM EDT ALT STAT 08/21/2025 4:37 PM EDT AST STAT 08/21/2025 4:37 PM EDT APTT STAT 08/21/2025 4:37 PM EDT PROTIME-INR STAT 08/21/2025 4:37 PM EDT RAINBOW DRAW STAT 08/21/2025 4:37 PM EDT POCT [id number] -HCT STAT 08/21/2025 4:[address] HEAD WO CONTRAST STROKE PROTOCOL STAT 08/21/2025 4:31 PM EDT POCT GLUCOSE FINGERSTICK Routine 08/21/2025 4:20 PM EDT URINALYSIS AND MICROSCOPIC Routine 08/17/2025 12:09 PM EDT Incomplete bladder emptying POP-Q stage 3 cystocele Weakness of pelvic floor URINALYSIS, MICROSCOPIC ONLY Routine 08/17/2025 12:09 PM [...] of pelvic floor SCANNED - LABS 08/17/2025 ECG 12-LEAD Routine 08/09/2025 1:36 PM EDT Carotid stenosis, bilateral ECG 12-LEAD Routine 07/27/2025 11:28 AM EDT POCT GLUCOSE FINGERSTICK Routine 07/27/2025 11:24 AM EDT ECHO COMPLETE W/ DOPPLER AND COLOR FLOW Routine 07/27/2025 10:49 AM EDT POCT GLUCOSE FINGERSTICK Routine 07/27/2025 9:24 AM EDT TROPONIN Urgent 07/27/2025 9:02 AM EDT LIPID PANEL Urgent 07/27/2025 9:02 AM EDT HEMOGLOBIN A1C Urgent 07/27/2025 9:02 AM EDT COMPREHENSIVE METABOLIC PANEL Urgent 07/27/2025 9:02 AM EDT CBC WITH AUTO DIFFERENTIAL Urgent 07/27/2025 9:02 AM EDT DUPLEX CAROTID [...] STAT 07/26/2025 8:[address] ANGIOGRAM NECK STAT 07/26/2025 7:[address] ANGIOGRAM HEAD STAT 07/26/2025 7:[address] HEAD WO CONTRAST STAT 07/26/2025 7 :43 PM EDT ECG 12-LEAD STAT 07/26/2025 6:41 PM EDT URINALYSIS, MICROSCOPIC ONLY STAT 07/26/2025 6:27 PM EDT URINALYSIS W/ CULTURE IF INDICATED STAT 07/26/2025 6:27 PM EDT LIGHT BLUE TOP STAT 07/26/2025 6:13 PM EDT VASQUES TOP STAT 07/26/2025 6:13 PM EDT GOLD TOP - SST STAT 07/26/2025 6:13 PM EDT LAVENDER TOP STAT 07/26/2025 6:13 PM EDT DK GREEN TOP STAT 07/26/2025 6:13 PM EDT CBC AND DIFFERENTIAL STAT 07/26/2025 6:13 PM EDT HEPATITIS PANEL, ACUTE Add-On 07/26/2025 6:13 PM EDT CBC WITH AUTO DIFFERENTIAL STAT 07/26/2025 6:13 PM EDT TROPONIN STAT 07/26/2025 6:13 PM EDT MAGNESIUM STAT 07/26/2025 6:13 PM EDT COMPREHENSIVE METABOLIC PANEL STAT 07/26/2025 6:13 PM EDT RAINBOW DRAW STAT 07/26/2025 6:13 PM EDT SCANNED PATHOLOGY 07/19/2025 SCANNED - LABS 07/19/2025 SCANNED - LABS 07/19/2025 MICROALBUMIN / CREATININE URINE RATIO Routine 04/19/2025 8:36 AM EDT Type 2 diabetes mellitus with hyperglycemia, with long-term current use of insulin SCANNED - EYE EXAM 03/30/2023 from Last 3 Months or Most Recently Relevant to Health Maintenance Results * (ABNORMAL) POC Glucose Finger 4x Daily Before Meals & at Bedtime (08/23/2025 11:36 AM EDT) Only the most recent of16 resultswithin the time period is included. Glucose 139(H) 70 - 130 mg/dL 08/23/2025 11:40 AM EDT LABORATORY Comment:Serial Number: [id number]: [id number] Blood Finger structure / Unknown 08/23/2025 11:36 AM EDT 08/23/2025 11:40 AM EDT Beto Mars MD POINT OF CARE TEST ORDERABLES Final Result LABORATORY
[address] [place] [address], * (ABNORMAL) CBC Auto Differential (08/23/2025 10:43 AM EDT) Only the most recent of4 resultswithin the time period is included. WBC 6.82 3.40 - 10.80 10*3/mm3 08/23/2025 11:09 AM EDT LABORATORY RBC 3.13(L) 3.77 - 5.28 10*6/mm3 08/23/2025 11:09 AM EDT LABORATORY Hemoglobin 10.2(L) 12.0 - 15.9 g/dL 08/23/2025 11:09 AM EDT LABORATORY Hematocrit 29.3(L) 34.0 - 46.6 % 08/23/2025 11:09 AM EDT LABORATORY MCV 93.6 79.0 - 97.0 fL 08/23/2025 11:09 AM EDT LABORATORY MCH 32.6 26.6 - 33.0 pg 08/23/2025 11:09 AM EDT LABORATORY MCHC 34.8 31.5 - 35.7 g/dL 08/23/2025 11:09 AM EDT LABORATORY RDW 12.8 12.3 - 15.4 % 08/23/2025 11:09 AM [facility] LABORATORY RDW-SD 43.1 37.0 - 54.0 fl 08/23/2025 11:09 AM [facility] LABORATORY MPV 10.1 6.0 - 12.0 fL 08/23/2025 11:09 AM [facility] LABORATORY Platelets 222 140 - 450 10*3/mm3 08/23/2025 11:09 AM [facility] LAB[facility]ORY Neutrophil % 73.5 42.7 - 76.0 % 08/23/2025 11:09 AM [facility] LABOR[facility]ORY Lymphocyte % 18.2(L) 19.6 - 45.3 % 08/23/2025 11:09 AM [facility] LABOR[facility]ORY Monocyte % 7.8 5.0 - 12.0 % 08/23/2025 11:09 AM [facility] LABOR[facility]ORY Eosinophil % 0.0(L) 0.3 - 6.2 % 08/23/2025 11:09 AM [facility] LAB[facility]ORY Basophil % 0.1 0.0 - 1.5 % 08/23/2025 11:09 AM [facility] LAB[facility] Immature Grans % 0.4 0.0 - 0.5 % 08/23/2025 11:09 AM [facility] LAB[facility]ORY Neutrophils, Absolute 5.01 1.70 - 7.00 10*3/mm3 08/23/2025 11:09 AM [facility] Lymphocytes, Absolute 1.24 0.70 - 3.10 10*3/mm3 08/23/2025 11:09 AM [facility] LAB[facility]ORY Monocytes, Absolute 0.53 0.10 - 0.90 10*3/mm3 08/23/2025 11:09 AM [facility] LAB[facility]ORY Eosinophils, Absolute 0.00 0.00 - 0.40 10*3/mm3 08/23/2025 11:09 AM [facility] LAB[facility]ORY Basophils, Absolute 0.01 0.00 - 0.20 10*3/mm3 08/23/2025 11:09 AM [facility] LABORATORY Immature Grans, Absolute 0.03 0.00 - 0.05 10*3/mm3 08/23/2025 11:09 AM EDT LABORATORY nRBC 0.0 0.0 - 0.2 /100 WBC 08/23/2025 11:09 AM EDT LABORATORY Blood Venipuncture / Unknown 08/23/2025 10:43 AM EDT 08/23/2025 11:02 AM EDT [facility] LAB BLOOD ORDERABLES F inal Result Performing Organization Address City/[facility]/ZIP Co de Phone Number LABORATORY
[address] [place] [address], * Magnesium (08/23/2025 10:43 AM EDT) Only the most recent of3 resultswithin the time period is included. Magnesium 2.3 1.6 - 2.4 mg/dL 08/23/2025 11:33 AM EDT LABORATORY Blood Venipuncture / Unknown 08/23/2025 10:43 AM EDT 08/23/2025 11:02 AM EDT [facility] LAB BLOOD ORDERABLES F inal Result Performing Organization Address City/[facility]/ZIP Co de Phone Number LABORATORY
[address] [place] [address], * (ABNORMAL) Renal Function Panel (08/23/2025 10:43 AM EDT) Glucose 169(H) 65 - 99 mg/dL 08/23/2025 11:33 AM EDT LABORATORY BUN 15.2 8.0 - 23.0 mg/dL 08/23/2025 11:33 AM EDT LABORATORY Creatinine 0.94 0.57 - 1.00 mg/dL 08/23/2025 11:33 AM [facility] LABOR[facility]ORY Sodium 141 136 - 145 mmol/L 08/23/2025 11:33 AM [facility] LABOR[facility]ORY Potassium 4.5 3.5 - 5.2 mmol/L 08/23/2025 11:33 AM [facility] LABORATORY Chloride 107 98 - 107 mmol/L 08/23/2025 11:33 AM [facility] LABORATORY CO2 25.9 22.0 - 29.0 mmol/L 08/23/2025 11:33 AM [facility] LABORATORY Calcium 8.8 8.6 - 10.5 mg/dL 08/23/2025 11:33 AM [facility] LABORATORY Albumin 3.7 3.5 - 5.2 g/dL 08/23/2025 11:33 AM [facility] LABORATORY Phosphorus 3.4 2.5 - 4.5 mg/dL 08/23/2025 11:33 AM [facility] LABORATORY Anion Gap 8.1 5.0 - 15.0 mmol/L 08/23/2025 11:33 AM [facility] LABORATORY BUN/Creatinine Ratio 16.2 7.0 - 25.0 08/23/2025 11:33 AM [facility] LABORATORY eGFR 68.7 >60.0 mL/min/1.7 3 08/23/2025 11:33 AM [facility] LABORATORY Blood Venipuncture / Unknown 08/23/2025 10:43 AM EDT 08/23/2025 11:02 AM [facility] LABORATORY - 08/23/2025 11:33 AM EDT [...] DO LAB BLOOD ORDERABLES F inal Result LABORATORY
[address] [id number], * MRI Angiogram Neck With Contrast (08/23/2025 [...] MD 08/23/2025 10:15 AM EDT Workstation ID: [id number] Narrative 08/23/2025 10:15 AM EDT MRI ANGIOGRAM NECK W CONTRAST, MRI ANGIOGRAM HEAD W WO CONTRAST Date of Exam: 08/23/2025 8:25 AM EDT Indication: icad / flow SEND TO [employer] MASTER CONTROL OPERATOR. Comparison: 08/21/2025. Technique: Routine 3-D yesm-io-zicxjm gradient echo imaging was obtained of the [...] EDT Indication: icad / flow SEND TO [facility] MASTER CONTROL OPERATOR. Comparison: 08/21/2025. Technique: Routine 3-D uuad-uv-cwmeya gradient echo imaging was obtainedof the head [...] MD 08/23/2025 10:15 AM EDT Workstation ID: [id number] us Maulik Yun MD IM MRI ORDERABLES Final R esult * MRI [...] MD 08/23/2025 10:15 AM EDT Workstation ID: [id number] Narrative 08/23/2025 10:15 AM EDT MRI ANGIOGRAM NECK W CONTRAST, MRI ANGIOGRAM HEAD W WO CONTRAST Date of Exam: 08/23/2025 8:25 AM EDT Indication: icad / flow SEND TO [employer]. Comparison: 08/21/2025. Technique: Routine 3-D pinh-hg-kyqnpk gradient echo imaging was obtained of the [...] EDT Indication: icad / flow SEND TO [employer] MASTER CONTROL OPERATOR. Comparison: 08/21/2025. Technique: Routine 3-D dgrf-mr-ifbdyg gradient echo imaging was obtainedof the head [...] MD 08/23/2025 10:15 AM EDT Workstation ID: [id number] us Maulik Yun MD IM MRI ORDERABLES Final R esult * P2Y12 Platelet Inhibition (08/22/2025 4:18 PM EDT) [facility] Signature P2Y12 Reactivity Unit 33 PRU DISK DIFFUSION 08/22/2025 5:05 PM EDT LABORATORY Blood Venipuncture / Unknown 08/22/2025 4:18 PM EDT 08/22/2025 4:38 PM EDT Narrative LABORATORY - 08/22/2025 5:05 PM EDT P2Y12 [...] Yun MD LAB BLOOD ORDERABLES Final Result LABORATORY
[id number] [place] [id number], * (ABNORMAL) CBC (No Diff) (08/22/2025 4:18 PM EDT) [facility] WBC 5.57 3.40 - 10.80 10*3/mm3 08/22/2025 4:48 PM EDT LABORATORY RBC 3.02(L) 3.77 - 5.28 10*6/mm3 08/22/2025 4:48 PM EDT LABORATORY Hemoglobin 9.4(L) 12.0 - 15.9 g/dL 08/22/2025 4:48 PM EDT LABORATORY Hematocrit 27.6(L) 34.0 - 46.6 % 08/22/2025 4:48 PM EDT LABORATORY MCV 91.4 79.0 - 97.0 fL 08/22/2025 4:48 PM EDT LABORATORY MCH 31.1 26.6 - 33.0 pg 08/22/2025 4:48 PM EDT LABORATORY MCHC 34.1 31.5 - 35.7 g/dL 08/22/2025 4:48 PM EDT LABORATORY RDW 12.7 12.3 - 15.4 % 08/22/2025 4:48 PM EDT LABORATORY RDW-SD 42.1 37.0 - 54.0 fl 08/22/2025 4:48 PM EDT LABORATORY MPV 10.0 6.0 - 12.0 fL 08/22/2025 4:48 PM EDT LABORATORY Platelets 236 140 - 450 10*3/mm3 08/22/2025 4:48 PM EDT LABORATORY Blood Venipuncture / Unknown 08/22/2025 4:18 PM EDT 08/22/2025 4:38 PM EDT Beto Mars MD LAB BLOOD ORDERABLES Final Re sult LABORATORY
[address] [place] [address], * (ABNORMAL) Basic Metabolic Panel (08/22/2025 4:17 PM EDT) Glucose 125(H) 65 - 99 mg/dL 08/22/2025 5:06 PM EDT LABORATORY BUN 17.5 8.0 - 23.0 mg/dL 08/22/2025 5:06 PM EDT LABORATORY Creatinine 0.89 0.57 - 1.00 mg/dL 08/22/2025 5:06 PM EDT LABORATORY Sodium 139 136 - 145 mmol/L 08/22/2025 5:06 PM EDT LABORATORY Potassium 4.6 3.5 - 5.2 mmol/L 08/22/2025 5:06 PM EDT LABORATORY Chloride 106 98 - 107 mmol/L 08/22/2025 5:06 PM EDT LABORATORY CO2 25.3 22.0 - 29.0 mmol/L 08/22/2025 5:06 PM EDT LABORATORY Calcium 8.9 8.6 - 10.5 mg/dL 08/22/2025 5:06 PM EDT LABORATORY BUN/Creatinine Ratio 19.7 7.0 - 25.0 08/22/2025 5:06 PM EDT LABORATORY Anion Gap 7.7 5.0 - 15.0 mmol/L 08/22/2025 5:06 PM EDT LABORATORY eGFR 73.4 >60.0 mL/min/1.7 3 08/22/2025 5:06 PM EDT LABORATORY Blood Venipuncture / Unknown 08/22/2025 4:17 PM EDT 08/22/2025 4:39 PM EDT Narrative LABORATORY - 08/22/2025 5:06 PM EDT GFR [...] MD LAB BLOOD ORDERABLES Final Re sult [facility]
[address] [place] [address], * MRI Brain Without Contrast (08/21/2025 11:38 PM EDT) Only the most recent of2 resultswithin the time period is included. Anatomical Region Laterality Modality Head, Neck N/A [...] MD 08/22/2025 4:24 AM EDT Workstation ID: [id number] Narrative 08/22/2025 4:24 AM EDT MRI BRAIN [...] MD 08/22/2025 4:24 AM EDT Workstation ID: [id number] us Michela López GAMALIEL IMG MRI ORDERABLES Final Re sult * Telemetry Scan (08/21/2025 8:36 PM EDT) Only the most recent of3 resultswithin the time period is included. [facility] Onbase ECG ORDERABLES Final Result * XR Chest 1 View (08/21/2025 5:17 PM EDT) Anatomical Region Laterality Modality Body N/A Radiographic Laura ging 08/21/2025 5:40 PM EDT Impressions 08/21/2025 5:40 PM EDT Impression: No acute cardiopulmonary abnormality. Electronically Signed: Brock Durham MD 08/21/2025 5:40 PM EDT Workstation ID: [id number] Narrative 08/21/2025 5:40 PM EDT XR CHEST [...] MD 08/21/2025 5:40 PM EDT Workstation ID: [id number] Ariel Washington MD IMG DIAGNOSTIC IMAGING ORDE RABLES Final Result * CT CEREBRAL PERFUSION WITH & WITHOUT CONTRAST (08/21/2025 5:02 PM EDT) Only the most recent of2 resultswithin the time period is included. Anatomical Region Laterality Modality Head N/A Computed [...] with Juju Vasques and Michela López, stroke care support representative, via telephone on 08/21/2025 5:33 PM EDT. Electronically Signed: Ashvin Stockton MD 08/21/2025 5:41 PM EDT Workstation ID: [id number] Narrative 08/21/2025 5:[address] ANGIOGRAM [...] discussed with Juju Vasques and Michela López,stroke care support representative, via telephone on 08/21/2025 5:33 PM EDT. Electronically Signed: Ashvin Stockton MD 08/21/2025 5:41 PM EDT Workstation ID: [id number] us Ariel Washington MD IMG CT ORDERABLES [...] with Juju Vasques and Michela López, stroke care support representative, via telephone on 08/21/2025 5:33 PM EDT. Electronically Signed: Ashvin Stockton MD 08/21/2025 5:41 PM EDT Workstation ID: [id number] Narrative 08/21/2025 5:[address] ANGIOGRAM [...] The above findings were discussed with Juju López,stroke care support representative, via telephone on 08/21/2025 5:33 PM EDT. Electronically Signed: Ashvin Stockton MD 08/21/2025 5:41 PM EDT Workstation ID: [id number] us Ariel Washington MD IMG CT ORDERABLES Final Res ult * CT Angiogram Neck (08/21/2025 5:02 PM EDT) Only the most recent of2 resultswithin the time period is included. Anatomical Region Laterality Modality Neck, Vascular N/A [...] The above findings were discussed with Juju López, stroke care support representative, via telephone on 08/21/2025 5:33 PM EDT. Electronically Signed: Ashvin Stockton MD 08/21/2025 5:41 PM EDT Workstation ID: [id number] Narrative 08/21/2025 5:[address] ANGIOGRAM [...] discussed with Juju Vasques and Michela López,stroke care support representative, via telephone on 08/21/2025 5:33 PM EDT. Electronically Signed: Ashvin Stockton MD 08/21/2025 5:41 PM EDT Workstation ID: [id number] Ariel Washington MD IMG CT ORDERABLES Final Res ult * Vasques Top (08/21/2025 4:37 PM EDT) Only the most recent of2 resultswithin the time period is included. Extra Tube Hold for add-ons. 08/21/2025 4:45 PM EDT [facility] Comment:Auto resulted. Blood Venipuncture / Unknown 08/21/2025 4:37 PM EDT 08/21/2025 4:40 PM EDT Ariel Washington MD LAB BLOOD ORDER ONLY Final Result [facility]
[address] [place] [address], * [facility] Top - [facility] (08/21/2025 4:37 PM EDT) Only the most recent of2 resultswithin the time period is included. Extra Tube Hold for add-ons. 08/21/2025 4:45 PM EDT [facility] Comment:Auto resulted. Blood Venipuncture / Unknown 08/21/2025 4:37 PM EDT 08/21/2025 4:40 PM EDT us Ariel Washington MD LAB BLOOD ORDER ONLY Final Result [facility]
[address] [place] [address], [place] * Green Top (Gel) (08/21/2025 4:37 PM EDT) Only the most recent of2 resultswithin the time period is included. Extra Tube Hold for add-ons. 08/21/2025 4:45 PM EDT [facility] Comment:Auto resulted. Blood Venipuncture / Unknown 08/21/2025 4:37 PM EDT 08/21/2025 4:40 PM EDT us Ariel Washington MD LAB BLOOD ORDER ONLY Final Result [facility]
[address] [place] [address], [place] * Lavender Top (08/21/2025 4:37 PM EDT) Only the most recent of2 resultswithin the time period is included. Extra Tube hold for add-on 08/21/2025 4:45 PM EDT [facility] Comment:Auto resulted Blood Venipuncture / Unknown 08/21/2025 4:37 PM EDT 08/21/2025 4:40 PM EDT us Ariel Washington MD LAB BLOOD ORDER ONLY Final Result [facility]
[address] [place] [address], [place] * Light Blue Top (08/21/2025 4:37 PM EDT) Only the most recent of2 resultswithin the time period is included. Extra Tube Hold for add-ons. 08/21/2025 4:45 PM EDT [facility] Comment:Auto resulted Blood Venipuncture / Unknown 08/21/2025 4:37 PM EDT 08/21/2025 4:40 PM EDT us Ariel Washington MD LAB BLOOD ORDER ONLY Final Result Performing Organization Address City/[facility]/ZIP Co de Phone Number [facility]
[address] [facility] [address] [place] [address], [place] * aPTT (08/21/2025 4:37 PM EDT) PTT 28.8 22.0 - 39.0 seconds 08/21/2025 4:55 PM EDT [facility] Blood Venipuncture / Unknown 08/21/2025 4:37 PM EDT 08/21/2025 4:40 PM EDT Narrative [facility] - 08/21/2025 4:55 PM EDT PTT = The equivalent PTT values for the therapeutic range of heparin levels at 0.3 to 0.5 U/ml are 60 to 70 seconds. Ariel Washington MD LAB BLOOD ORDERABLES Final Result Performing Organization Address [facility] Co de Phone Number [facility]
[address] [place] [address], [place] * Protime-INR (08/21/2025 4:37 PM EDT) Protime 12.9 12.2 - 14.5 Seconds 08/21/2025 4:55 PM EDT [facility] INR 0.95 0.89 - 1.12 08/21/2025 4:55 PM EDT [facility] Blood Venipuncture / Unknown 08/21/2025 4:37 PM EDT 08/21/2025 4:40 PM EDT Ariel Washington MD LAB BLOOD ORDERABLES Final Result Performing Organization Address City/[facility]/ZIP Co de Phone Number [facility]
[address] [facility] [address] [place] [address], [place] * (ABNORMAL) ALT (08/21/2025 4:37 PM EDT) ALT (SGPT) 136(H) 1 - 33 U/L 08/21/2025 4:59 PM EDT [facility] Blood Venipuncture / Unknown 08/21/2025 4:37 PM EDT 08/21/2025 4:40 PM EDT Ariel Washington MD LAB BLOOD ORDERABLES Final Result [facility]
[address] [place] [address], [place] * (ABNORMAL) AST (08/21/2025 4:37 PM EDT) AST (SGOT) 47(H) 1 - 32 U/L 08/21/2025 5:00 PM EDT [facility] Blood Venipuncture / Unknown 08/21/2025 4:37 PM EDT 08/21/2025 4:40 PM EDT Ariel Washington MD LAB BLOOD ORDERABLES Final Result Performing Organization Address City/[facility]/ZIP Co de Phone Number [facility]
[address] [place] [address], * (ABNORMAL) POC CHEM 8 (08/21/2025 4:35 PM EDT) Glucose 116 70 - 130 mg/dL 08/21/2025 4:39 PM EDT [facility] BUN 23 8 - 26 mg/dL 08/21/2025 4:39 PM EDT [facility] Creatinine 1.50(H) 0.60 - 1.30 mg/dL 08/21/2025 4:39 PM EDT [facility] Sodium 137(L) 138 - 146 mmol/L 08/21/2025 4:39 PM EDT [facility] POC Potassium 4.8 3.5 - 4.9 mmol/L 08/21/2025 4:39 PM EDT [facility] Chloride 102 98 - 109 mmol/L 08/21/2025 4:39 PM EDT [facility] Total CO2 24 23 - 27 mmol/L 08/21/2025 4:39 PM EDT [facility] Hemoglobin 9.9(L) 12.0 - 17.0 g/dL 08/21/2025 4:39 PM EDT [facility] Comment:Serial Number: [id number] Hematocrit 29(L) 38 - 51 % 08/21/2025 4:39 PM EDT [facility] Ionized Calcium 1.17 1.15 - 1.30 mmol/L 08/21/2025 4:39 PM EDT [facility] eGFR 39.2(L) >60.0 mL/min/1.7 3 08/21/2025 4:39 PM EDT [facility] Blood 08/21/2025 4:35 PM EDT 08/21/2025 4:39 PM EDT us Ariel Washington MD POINT OF CARE TEST ORDERABL ES Final Result [facility]
[address] [place] [address], * CT Head Without Contrast Stroke Protocol (08/21/2025 4:31 PM EDT) Anatomical Region Laterality Modality Head N/A Computed Tomogra phy 08/21/2025 4:37 PM EDT Impressions 08/21/2025 4:44 PM EDT Impression: No acute intracranial findings. Electronically Signed: Harry Bradford MD 08/21/2025 4:44 PM EDT Workstation ID: [id number] Narrative 08/21/2025 4:[address] HEAD [...] MD 08/21/2025 4:44 PM EDT Workstation ID: [id number] us Ariel Washington MD IMG CT ORDERABLES Final Res ult * Urinalysis, Microscopic Only - Urine, Clean Catch (08/17/2025 12:09 PM EDT) Only the most recent of2 resultswithin the time period is included. RBC, UA 0-2 None Seen, 0-2 /HPF 08/17/2025 10:55 PM EDT [facility] WBC, UA 0-2 None Seen, 0-2 /HPF 08/17/2025 10:55 PM EDT [facility] Bacteria, UA None Seen None Seen /HPF 08/17/2025 10:55 PM EDT [facility] Squamous Epithelial Cells, UA 0-2 None Seen, 0-2 /HPF 08/17/2025 10:55 PM EDT [facility] Hyaline Casts, UA None Seen None Seen /LPF 08/17/2025 10:55 PM EDT [facility] Methodology Automated Microscopy 08/17/2025 10:55 PM EDT [facility] Urine Urine specimen obtained by clean catch procedure / Unknown Collection / Unknown 08/17/2025 12:09 PM EDT 08/17/2025 12:09 PM EDT Ciro Diaz PA-C URINE ORDERABLES Final Res ult [facility]
[address] [place] [address], * (ABNORMAL) Urinalysis without microscopic (no culture) - Urine, Clean Catch (08/17/2025 12:09 PM EDT) Color, UA Yellow Yellow, Straw 08/17/2025 10:47 PM EDT [facility] Appearance, UA Clear Clear 08/17/2025 10:47 PM EDT [facility] pH, UA 6.0 5.0 - 8.0 08/17/2025 10:47 PM EDT [facility] Specific [place], UA 1.021 1.005 - 1.030 08/17/2025 10:47 PM EDT [facility] Glucose, UA >=1000 mg/dL (3+)(A) Negative 08/17/2025 10:47 PM EDT [facility] Ketones, UA Negative Negative 08/17/2025 10:47 PM EDT [facility] Bilirubin, UA Negative Negative 08/17/2025 10:47 PM EDT [facility] Blood, UA Negative Negative 08/17/2025 10:47 PM EDT [facility] Protein, UA 30 mg/dL (1+)(A) Negative 08/17/2025 10:47 PM EDT [facility] Leuk Esterase, UA Negative Negative 08/17/2025 10:47 PM EDT [facility] Nitrite, UA Negative Negative 08/17/2025 10:47 PM EDT [facility] Urobilinogen, UA 1.0 E.U./dL 0.2 - 1.0 E.U./dL 08/17/2025 10:47 PM EDT [facility] Urine Urine specimen obtained by clean catch procedure / Unknown Collection / Unknown 08/17/2025 12:09 PM EDT 08/17/2025 12:09 PM EDT Ciro Diaz PA-C URINE ORDERABLES Final Res ult [facility]
[address] [place] [address], * (ABNORMAL) POC Urinalysis Dipstick, Automated (08/17/2025 12:03 PM EDT) Color Dark Yellow Yellow, Straw, Dark Yellow, Kristan [facility] Clarity, UA Clear Clear [facility] Specific [place] 1.010 1.005 - 1.030 [facility] pH, Urine 6.0 5.0 - 8.0 [facility] Leukocytes Negative Negative [facility] Nitrite, UA Negative Negative [facility] Protein, POC 1+(A) Negative mg/dL [facility] Glucose, UA 3+(A) Negative mg/dL [facility] Ketones, UA Negative Negative [facility] Urobilinogen, UA 0.2 E.U./dL Normal, 0.2 E.U./dL [facility] Bilirubin Negative Negative [facility] Blood, UA Negative Negative [facility] Lot Number [id number] [facility] Expiration Date 03/28/2027 [facility] Urine 08/17/2025 12:0 3 PM EDT us Ciro Diaz PA-C POINT OF CARE TEST ORDERAB LES Final Result [facility]
[address] [place] [id number], * LABS SCANNED (08/17/2025) Only the most recent of3 resultswithin the time period is included. Ciro Diaz PA-C LAB BLOOD ORDERABLES Final Result * ECG 12-LEAD (08/09/2025 1:36 PM EDT) Only the most recent of3 resultswithin the time period is included. Narrative Joey Romero RegSched Rep - 08/09/2025 [...] nonspecific t wave abnormality Procedure Note Alaina Hayes APRN - 08/09/2025 1:00 PM EDT Images from [...] ischemic attack and was [facility] During her hospital stay, she underwent severaltests, [...] appointment wouldbe with the stroke unit at [facility] to further investigate the scanresults. Prior to her hospitalization, she was recovering from a urinarytract infection (UTI). She reports no chest pressure or dizziness. She hasan upcoming appointment with neurology on 08/25/2025. She is currentlyunable to drive or climb stairs. Upon hospital discharge she was startedon aspirin and Plavix. She has a history of high blood pressure, which is managed with Uqvyotvikm10ok daily. Her blood pressure readings were normal [...] 2. HTN 3. HPL 4. Anxiety/Depression 5. Cdihzles-pcfuqbv-aieolbvyd brittle 6. Family history of significant CAD; insurance denied BLAS 7. TIA 07/27/2025 07/26/2025 CT Angiogram head [...] Continuous Glucose Sensor (FreeStyle Jovita 3 Sensor) [employer], Inject 1 eachunder the skin into the [...] (66 ) Wt 72.6 kg (160 lb) PuA518% BMI 25.82 kg/m Estimated body mass index [...] for Next scheduled followup. Patient or patient wholesale representative verbalized consent for the use ofAmbient Listening during the visit with Alaina Hayes APRN for chartdocumentation. 08/09/2025 13:40 EDT Alaina Hayes APRN Cardiology and Sleep [facility] 08/09/2025 Please note that this explicitly excludes time spent on other separatebillable services such as performing procedures or test interpretation,when applicable. us Alaina Hayes APRN ECG ORDERABLES Final Resu lt * ECHO COMPLETE W/ DOPPLER AND COLOR [...] 20 mL of agitated saline was administered. Paul Bright APRN CV ECHO ORDERABLES Final Resu lt * (ABNORMAL) High Sensitivity Troponin T (07/27/2025 9:02 AM EDT) Only the most recent of2 resultswithin the time period is included. HS Troponin T 27(H) <14 ng/L 07/27/2025 9:47 AM EDT LABORATORY Blood Venipuncture / Unknown 07/27/2025 9:02 AM EDT 07/27/2025 9:06 AM EDT Narrative LABORATORY - 07/27/2025 9:47 AM EDT High [...] injury due to an underlying chronic condition. Michael Cano MD LAB BLOOD ORDERABLES Final R esult LABORATORY
[address] [place] [address], * (ABNORMAL) Hemoglobin A1c (07/27/2025 9:02 AM EDT) Hemoglobin A1C 6.91(H) 4.80 - 5.60 % 07/27/2025 9:40 AM EDT LABORATORY Blood Venipuncture / Unknown 07/27/2025 9:02 AM EDT 07/27/2025 9:06 AM EDT [facility] LABORATORY - 07/27/2025 9:40 AM EDT Hemoglobin A1C Ranges: Increased Risk for Diabetes 5.7% to 6.4% Diabetes >= 6.5% Diabetic Goal < 7.0% Michael Cano MD LAB BLOOD ORDERABLES Final R esult LABORATORY
[address] [place] [address], * (ABNORMAL) Lipid Panel (07/27/2025 9:02 AM EDT) Total Cholesterol 133 0 - 200 mg/dL 07/27/2025 9:47 AM EDT LABORATORY Triglycerides 114 0 - 150 mg/dL 07/27/2025 9:47 AM EDT LABORATORY HDL Cholesterol 30(L) 40 - 60 mg/dL 07/27/2025 9:47 AM EDT LABORATORY LDL Cholesterol 82 0 - 100 mg/dL 07/27/2025 9:47 AM EDT LABORATORY VLDL Cholesterol 21 5 - 40 mg/dL 07/27/2025 9:47 AM EDT LABORATORY LDL/HDL Ratio 2.67 07/27/2025 9:47 AM EDT LABORATORY Blood Venipuncture / Unknown 07/27/2025 9:02 AM EDT 07/27/2025 9:06 AM EDT [facility] LABORATORY - 07/27/2025 9:47 AM EDT [...] MD LAB BLOOD ORDERABLES Final R esult LABORATORY
[address] [place] [address], * (ABNORMAL) Comprehensive Metabolic Panel (07/27/2025 9:02 AM EDT) Only the most recent of2 resultswithin the time period is included. Glucose 78 65 - 99 mg/dL 07/27/2025 9:47 AM EDT LABORATORY BUN 17.2 8.0 - 23.0 mg/dL 07/27/2025 9:47 AM EDT LABORATORY Creatinine 0.88 0.57 - 1.00 mg/dL 07/27/2025 9:47 AM EDT LABORATORY Sodium 138 136 - 145 mmol/L 07/27/2025 9:47 AM EDT LABORATORY Potassium 3.8 3.5 - 5.2 mmol/L 07/27/2025 9:47 AM EDT LABORATORY Chloride 104 98 - 107 mmol/L 07/27/2025 9:47 AM EDT LABORATORY CO2 20.1(L) 22.0 - 29.0 mmol/L 07/27/2025 9:47 AM [facility] Calcium 8.7 8.6 - 10.5 mg/dL 07/27/2025 9:47 AM [facility] Total Protein 6.1 6.0 - 8.5 g/dL 07/27/2025 9:47 AM [facility] Albumin 3.5 3.5 - 5.2 g/dL 07/27/2025 9:47 AM [facility] ALT (SGPT) 237(H) 1 - 33 U/L 07/27/2025 9:47 AM [facility] AST (SGOT) 127(H) 1 - 32 U/L 07/27/2025 9:47 AM [facility] Alkaline Phosphatase 123(H) 39 - 117 U/L 07/27/2025 9:47 AM [facility] Total Bilirubin 0.8 0.0 - 1.2 mg/dL 07/27/2025 9:47 AM [facility] Globulin 2.6 gm/dL 07/27/2025 9:47 AM [facility] Comment:Calculated Result A/G Ratio 1.3 g/dL 07/27/2025 9:47 AM [facility] BUN/Creatinine Ratio 19.5 7.0 - 25.0 07/27/2025 9:47 AM [facility] Anion Gap 13.9 5.0 - 15.0 mmol/L 07/27/2025 9:47 AM [facility] eGFR 74.4 >60.0 mL/min/1.7 3 07/27/2025 9:47 AM [facility] Blood Venipuncture / Unknown 07/27/2025 9:02 AM EDT 07/27/2025 9:06 AM [facility] - 07/27/2025 9:47 AM EDT GFR [...] MD LAB BLOOD ORDERABLES Final R esult LABORATORY
[address] [place] [address], * DUPLEX CAROTID BILATERAL CAR - PERFORMED [...] The study is technically good for diagnosis. us Paul Bright APRN CV VASCULAR ORDERABLES Final Result * TSH Rfx On Abnormal To Free T4 (07/26/2025 8:06 PM EDT) TSH 2.090 0.270 - 4.200 uIU/mL 07/27/2025 1:01 AM EDT LABORATORY Blood Line / Unknown 07/26/2025 8: 06 PM EDT 07/26/2025 8:15 PM EDT Michael Cano MD LAB BLOOD ORDERABLES Final R esult Performing Organization Address City/[facility]/ZIP Co de Phone Number LABORATORY
[address] [phone] * (ABNORMAL) High Sensitivity Troponin T 1Hr (07/26/2025 8:06 PM EDT) Pathologist [facility] HS Troponin T 20(H) <14 ng/L 07/26/2025 8:38 PM EDT LABORATORY Troponin T Numeric Delta 0 ng/L 07/26/2025 8:38 PM EDT LABORATORY Troponin T % Delta 0 Abnormal if >/= 20% 07/26/2025 8:38 PM EDT LABORATORY Blood Line / Unknown 07/26/2025 8: 06 PM EDT 07/26/2025 8:15 PM EDT Narrative LABORATORY - 07/26/2025 8:38 PM EDT High [...] injury due to an underlying chronic condition. Heron Whatley DO LAB BLOOD ORDERABLES Final Resul t Performing Organization Address City/[facility]/ZIP Co de Phone Number LABORATORY
[address] [phone] * CT Angiogram Head (07/26/2025 7:43 PM [...] MD 07/26/2025 7:59 PM EDT Workstation ID: [id number] Narrative 07/26/2025 7:[address] ANGIOGRAM [...] artery origin is normal. The A1 and U9aaanprgu appear within normal limits. The visualized distal [...] MD 07/26/2025 7:59 PM EDT Workstation ID: [id number] Heron Whatley DO IMG CT ORDERABLES Final Result * CT Head Without Contrast (07/26/2025 7:43 PM EDT) Anatomical Region Laterality Modality Head N/A Computed Tomogra phy 07/26/2025 7:47 PM EDT Impressions 07/26/2025 7:48 PM EDT Impression: No acute intracranial findings. Electronically Signed: Saturnino Macdonald MD 07/26/2025 7:48 PM EDT Workstation ID: [id number] Narrative 07/26/2025 7:[address] HEAD [...] MD 07/26/2025 7:48 PM EDT Workstation ID: [id number] us Heron Chacorta DO IMG CT ORDERABLES Final Result * (ABNORMAL) Urinalysis With Culture If Indicated - Urine, Clean Catch (07/26/2025 6:27 PM EDT) Color, UA Dark Yellow(A) Yellow, Straw 07/26/2025 6:50 PM EDT LABORATORY Appearance, UA Clear Clear 07/26/2025 6:50 PM EDT LABORATORY pH, UA 6.5 5.0 - 8.0 07/26/2025 6:50 PM EDT LABORATORY Specific [place], UA 1.019 1.005 - 1.030 07/26/2025 6:50 PM EDT LABORATORY Glucose, UA 100 mg/dL (Trace)(A) Negative 07/26/2025 6:50 PM EDT LABORATORY Ketones, UA Trace(A) Negative 07/26/2025 6:50 PM EDT LABORATORY Bilirubin, UA Small (1+)(A) Negative 07/26/2025 6:50 PM EDT LABORATORY Blood, UA Negative Negative 07/26/2025 6:50 PM EDT LABORATORY Protein, UA >=300 mg/dL (3+)(A) Negative 07/26/2025 6:50 PM EDT LABORATORY Leuk Esterase, UA Small (1+)(A) Negative 07/26/2025 6:50 PM EDT LABORATORY Nitrite, UA Negative Negative 07/26/2025 6:50 PM EDT LABORATORY Urobilinogen, UA 1.0 E.U./dL 0.2 - 1.0 E.U./dL 07/26/2025 6:50 PM EDT LABORATORY Urine Urine specimen obtained by clean catch procedure / Unknown Collection / Unknown 07/26/2025 6:27 PM EDT 07/26/2025 6:46 PM EDT [facility] LABORATORY - 07/26/2025 6:50 PM EDT In absence of clinical symptoms, the presence of pyuria, bacteria, and/or nitrites on the urinalysis result does not correlate with infection. Heron Whatley DO URINE ORDERABLES Final Result LABORATORY
[id number] [place] [id number], * Hepatitis Panel, Acute (07/26/2025 6:13 PM EDT) Hepatitis B Surface Ag Non-Reacti ve Non-Reacti ve 07/27/2025 12:05 PM EDT LABORATORY Hep A IgM Non-Reacti ve Non-Reacti ve 07/27/2025 12:05 PM EDT LABORATORY Hep B C IgM Non-Reacti ve Non-Reacti ve 07/27/2025 12:05 PM EDT LABORATORY Hepatitis C Ab Non-Reacti ve Non-Reacti ve 07/27/2025 12:05 PM EDT LABORATORY Blood Line / Unknown 07/26/2025 6: 13 PM EDT 07/26/2025 6:20 PM EDT [facility] LABORATORY - 07/27/2025 12:05 PM EDT Results may be falsely decreased if patient taking Biotin. Michelle Moon MD LAB BLOOD ORDERABLES Final Result Performing Organization Address City/[facility]/ZIP Co de Phone Number LABORATORY
[address] [place] [address], [place] [phone] * SCANNED PATHOLOGY (07/19/2025) [facility] PATHOLOGY/CYTOLOGY ORDERABLES Final Result * (ABNORMAL) Microalbumin / Creatinine Urine Ratio - Urine, Clean Catch (04/19/2025 8:36 AM EDT) Microalbumin/C reatinine Ratio 740.5(H) 0.0 - 29.0 mg/g 04/19/2025 8:20 PM EDT [facility] LABORATORY Creatinine, Urine 144.9 mg/dL 04/19/2025 8:20 PM EDT [facility] Microalbumin, Urine 107.3 mg/dL 04/19/2025 8:20 PM EDT [facility] Urine Urine specimen obtained by clean catch procedure / Unknown Collection / Unknown 04/19/2025 8:36 AM EDT 04/19/2025 8:36 AM EDT Katrina Garrett MD URINE ORDERABLES Final Result Performing Organization Address [facility]/ZIP Co de Phone Number [facility] LABORATORY
[address] [place] [address], * SCANNED - EYE EXAM (03/30/2023) Anatomical Region Laterality Modality Other Katrina Garrett MD CHART REVIEW TABS Final Resu lt from Last 3 Months or Most Recently Relevant to Health Maintenance [place] [address] [place] [address] Advance Directives * CPR (Attempt to Resuscitate) (Latest Code Status on File) Date Activated Date Inactivated Comments 08/21/2025 11:50 PM 08/23/2025 2:44 PM Question Answer Comments Code Status (Patient has no pulse and is not breathing): CPR (Attempt to Resuscitate) Medical Interventions (Patie nt has pulse or is breathing): Full Support * CPR (Attempt to Resuscitate) Date Activated Date Inactivated Comments 07/27/2025 12:24 AM 07/27/2025 4:33 PM Question Answer Comments Code Status (Patient has no pulse and is not breathing): CPR (Attempt to Resuscitate) Medical Interventions (Patie nt has pulse or is breathing): Full Support Level Of Support Discussed With: Patient Care Teams Armament Installer Relationship Specialty Start Date End Date Araceli Doyle MD PCP - General Family Medicine 03/19/22
--- NOTE | 2025-09-14 00:10 | CT_ITS ---
PROCEDURE INFORMATION: Exam: CTA Neck With Contrast Exam date and time: 09/14/2025 12:51 AM Age: 60 years old Clinical indication: Pain; Headache; Additional info: HX strokes, having frontal headache no deficits TECHNIQUE: Imaging protocol: Computed tomographic angiography of the neck with contrast. Exam focused on the cervical segments of the vasculature. 3D rendering (Not supervised by radiologist): MIP and/or 3D reconstructed images were created by the technologist. Radiation optimization: All CT scans at this facility use at least one of these dose optimization techniques: automated exposure control; mA and/or kV adjustment per patient size (includes targeted exams where dose is matched to clinical indication); or iterative reconstruction. Contrast material: ISOVUE; Contrast volume: 80 ml; Contrast route: INTRAVENOUS (IV); COMPARISON: CT HEAD/BRAIN WO CON 09/14/2025 12:49 AM FINDINGS: Limitations: Venous contamination related to timing of IV contrast injection and/or cardiac function somewhat limits arterial assessment. However, the exam is still of diagnostic value. Dense contrast within the left internal jugular vein limits assessment of the adjacent carotid artery. Right common carotid artery: No stenosis. No dissection or occlusion. Right internal carotid artery: No stenosis of the extracranial segment. No dissection or occlusion. Right external carotid artery: No occlusion or stenosis of the origin. Left common carotid artery: No stenosis. No dissection or occlusion. Left internal carotid artery: Occluded left ICA. Left external carotid artery: No occlusion or stenosis of the origin. Right vertebral artery: No stenosis. No dissection or occlusion. Left vertebral artery: No stenosis. No dissection or occlusion. Soft tissues: Normal. No significant soft tissue swelling. Bones/joints: No acute fracture. IMPRESSION: 1. Occluded left ICA may be chronic although nonspecific in the absence of prior imaging. 2. No additional large vessel occlusion, significant stenosis or dissection identified. THIS REPORT CONTAINS FINDINGS THAT MAY BE CRITICAL TO PATIENT CARE. The findings were verbally communicated via telephone conference with Christian Barcenas at 1:27 AM EDT on 09/14/2025. The findings were acknowledged and understood. REFERENCES: NASCET CRITERIA. The degree of stenosis in the cervical segment of the internal carotid artery is based on NASCET criteria. Normal is no stenosis. Mild is less than 50% stenosis. Moderate is 50-69% stenosis. Severe is 70% to 99% stenosis. Total occlusion is no detectable patent lumen.
--- NOTE | 2025-09-14 00:10 | CT_ITS ---
PROCEDURE INFORMATION: Exam: CTA Head With Contrast, Arteriography Exam date and time: 09/14/2025 12:51 AM Age: 60 years old Clinical indication: Pain; Headache; Additional info: HX strokes, having frontal headache no deficits TECHNIQUE: Imaging protocol: Computed tomographic angiography of the head with contrast. Exam focused on the arteries. 3D rendering (Not supervised by radiologist): MIP and/or 3D reconstructed images were created by the technologist. Radiation optimization: All CT scans at this facility use at least one of these dose optimization techniques: automated exposure control; mA and/or kV adjustment per patient size (includes targeted exams where dose is matched to clinical indication); or iterative reconstruction. Contrast material: ISOVUE; Contrast volume: 80 ml; Contrast route: INTRAVENOUS (IV); COMPARISON: CT HEAD/BRAIN WO CON 09/14/2025 12:49 AM FINDINGS: ANTERIOR CIRCULATION: Right internal carotid artery: Intracranial segment is patent with no significant stenosis. No aneurysm. Right middle cerebral artery: No occlusion or significant stenosis. No aneurysm. Right anterior cerebral artery: No occlusion or significant stenosis. No aneurysm. Left internal carotid artery: Occluded left ICA with reconstitution of distal flow above the clinoid. Left middle cerebral artery: No occlusion or significant stenosis. No aneurysm. Left anterior cerebral artery: No occlusion or significant stenosis. No aneurysm. POSTERIOR CIRCULATION: Right vertebral artery: No occlusion or significant stenosis. No aneurysm. Left vertebral artery: No occlusion or significant stenosis. No aneurysm. Basilar artery: No occlusion or significant stenosis. No aneurysm. Right posterior cerebral artery: No occlusion or significant stenosis. No aneurysm. Left posterior cerebral artery: No occlusion or significant stenosis. No aneurysm. Brain: No definite mass, mass effect, or midline shift. Cerebral ventricles: No ventriculomegaly. Bones/joints: Unremarkable. No acute fracture. Soft tissues: Unremarkable. Other findings: There is calcific atherosclerosis of the bilateral cavernous ICA. IMPRESSION: 1. Occluded left ICA with reconstitution of flow in the JERMAINE and MCA above the clinoid. 2. No additional large vessel occlusion, significant stenosis or aneurysm identified.
[2025-09-14 00:11] LABS: Lactate Venous 1.6 mmol/L (0.4-2.0); VBG HCO3 24.3 mmol/L (23-30); VBG PCO2 47.1 mmol/L (35-51); VBG PH 7.33 mmol/L (7.31-7.41); VBG PO2 33.2 mmol/L (28-40)
--- NOTE | 2025-09-14 00:12 | XR_ITS ---
PROCEDURE INFORMATION: Exam: XR Chest Exam date and time: 09/14/2025 12:17 AM Age: 60 years old Clinical indication: Other: New o2 req; Additional info: New afib rvr, new o2 req TECHNIQUE: Imaging protocol: Radiologic exam of the chest. Views: 1 view. COMPARISON: No relevant prior studies available. FINDINGS: Lungs: Mild right basilar opacity may represent pneumonia in appropriate clinical setting. Pleural spaces: No pneumothorax. Heart/Mediastinum: Unremarkable cardiomediastinal silhouette. Bones/joints: No acute osseous findings. IMPRESSION: Mild right basilar opacity may represent pneumonia in appropriate clinical setting. Recommend imaging follow-up until complete resolution.
[2025-09-14 00:15] LABS: Hematocrit 36.4 % (37.0-47.0); Hemoglobin 11.8 g/dL (12.2-16.2); Immature Granulocytes % 0.4 %; Mean Corpuscular HGB Conc 32.4 g/dL (31.8-35.4); Mean Corpuscular Hemoglobin 30.8 pg (27.0-31.2); Mean Corpuscular Volume 95.0 fl (81-99); Nucleated Red Blood Cells % 0 %; Platelet Count 255 K/mm3 (142-424); Red Blood Count 3.83 M/mm3 (4.20-5.40); Red Cell Distribution Width-SD 47.3 fL; White Blood Count 8.3 K/mm3 (4.8-10.8)
[2025-09-14] MEDS: LACTATED RINGERS 1000ML 1,000 ML 999 ML IV ×2 (00:19→03:53)
[2025-09-14 00:20] LABS: Alanine Aminotransferase 362 U/L (12-78); Albumin Level 3.7 g/dl (3.5-5.0); Albumin/Globulin Ratio 0.8 (1.1-1.8); Alkaline Phosphatase 247 U/L (38-126); Anion Gap 12.7 mEq/L (5-15); Aspartate Amino Transferase 151 U/L (14-36); Bilirubin,Total 0.9 mg/dl (0.2-1.3); Blood Urea Nitrogen 30 mg/dl (7-17); Calcium 9.5 mg/dl (8.4-10.2); Carbon Dioxide 26 mmol/L (22.0-30.0); Chloride 99 mmol/L (98-107); Creatinine Clearance Estimated 61 mL/min (50-200); Creatinine,Serum 1.10 mg/dl (0.52-1.04); Estimated Glomerular Filt Rate 50 ml/min (>60); GFR (African American) 61 ML/MIN (>60); Globulin 4.4 g/dL (1.3-3.2); Glucose 210 mg/dl (74-100); Potassium 4.7 mmoL/L (3.5-5.1); Sodium 133 mmol/L (136-145); Total Protein,Serum 8.1 g/dl (6.3-8.2)
[2025-09-14] MEDS: ASPIRIN 81MG CHEWABLE TABLET 324 MG PO (00:20)
[2025-09-14 00:32] LABS: Troponin I 0.06 ng/ml (0.00-0.034)
[2025-09-14 00:40] LABS: NT Pro Brain Natriuretic Pep. 190 pg/mL (0-125)
[2025-09-14] MEDS: 0.9 % SODIUM CHLORIDE 50 ML VIAL IV (01:04)
[2025-09-14] MEDS: SODIUM CHLORIDE 0.9% 10ML SYR (RAD ONLY) 10 ML IV (01:04)
[2025-09-14] MEDS: IOPAMIDOL-370 (76%);100ML BOTTLE 150 ML IV (01:04)
[2025-09-14 01:09] LABS: Adenovirus,PCR Not Detected (NotDetected); Chlamydophila Pneumoniae, PCR Not Detected (NotDetected); Coronavirus 19, PCR Not Detected (NotDetected); Coronovirus HKU1,PCR Not Detected (NotDetected); Influenza A, PCR Not Detected (NotDetected); Influenza AH1, 2009 Not Detected (NotDetected); Influenza AH1, PCR Not Detected (NotDetected); Influenza AH3,PCR Not Detected (NotDetected); Influenza B, PCR Not Detected (NotDetected); Mycoplasma Pneumoniae, PCR Not Detected (NotDetected); Parainfluenza 1, PCR Not Detected (NotDetected); Parainfluenza 2, PCR Not Detected (NotDetected); Parainfluenza 3, PCR Not Detected (NotDetected); Parainfluenza 4, PCR Not Detected (NotDetected)
[2025-09-14 01:36] LABS: Lipase 208 U/L (23-300)
--- NOTE | 2025-09-14 02:08 | ECG_ITS ---
APPROVED REPORT Exam: Resting ECG HR:119 bpm ECG Measurements Heart Rate 119 AXES QRSd 101 QRS 18 QT 320 T 68 QTc 390 Conclusion ATRIAL FIBRILLATION WITH RAPID VENTRICULAR RESPONSE NONSPECIFIC ST & T-WAVE ABNORMALITY No STEMI Electronically signed by : CATHIE MOSQUERA, 09/14/2025 03:52:06
--- NOTE | 2025-09-14 02:19 | [facility].EDGENADL ---
Discharge Plan Disposition Patient Disposition: Admitted Condition: Good Clinical Impressions Clinical Impression: Atrial fibrillation with RVR, Transaminitis Nausea & vomiting Qualifiers: Vomiting type: unspecified Qualified Code(s): R11.2 - Nausea with vomiting, unspecified Discharge ED Provider: Christian Barcenas General Adult HPI General Chief complaint: Nausea/Vomiting/Diarrhea Stated complaint: vomiting Time Seen by Provider: 09/13/25 23:53 Mode of Arrival: EMS Source of Information: Patient and EMS Description of Symptoms (Recalled from ER Triage Doc. by RN): Pt presents with persistant nausea, 4 episodes of vomiting that began today associated with a mild headache (2/10) pain. Pt is in Afib RVR with a rate of 169, pt denies any hx of Afib. Denies any chest pain or SOA. History of Present Illness HPI narrative: 60-year-old female presents to the ER with complaints of nausea, vomiting, 2 out of 10 headache. Patient has a complex recent past medical history with TIA, known complete occlusion of left ICA, bladder prolapse with recurrent UTI. Spouse reports that the patient has no residual deficits from her TIAs and follows with [facility] for her urology and neurology problems. She does take DAPT. She is also diabetic. Patient has no history of known cardiac problems, no history of atrial fibrillation. EMS reports that they found her in A-fib RVR with rates in the 160s to the 180s but not hypotensive. They do report she was mildly hypoxic so they placed her on nasal cannula though patient has no previous oxygen requirement. Patient denies any chest pain or difficulty breathing, no sensation of palpitations, no cough or congestion, she states she does not have any abdominal pain but does still have nausea. She reports her headache is a 2 out of 10 across the front with no vision changes, no numbness, tingling, weakness, or any other associated symptoms. Patient denies thunderclap onset or maximal intensity at onset. Emesis has been reportedly nonbloody, nonbilious. Spouse reports that patient was told today she has UTI by her urologist and antibiotics were called in but had not yet been picked up at the pharmacy. Patient denies dysuria or hematuria. No fevers or chills. No other complaints or concerns. at bedside is very concerned that the patient is likely dehydrated due to poor oral intake in the last 2 days. Related Data Home Medications ?Medication ?Instructions ?Recorded ?Confirmed dapagliflozin propanediol 10 mg PO 30 days #30 tabs 09/08/18 09/08/18 tablet fluoxetine 20 mg capsule PO 30 days #60 caps 09/08/18 09/08/18 insulin glargine 100 unit/mL (3 20 unit SQ DAILY 09/08/18 09/08/18 mL) subcutaneous pen (Lantus Solostar U-100 Insulin) lisinopril 20 mg tablet PO 30 days #30 tabs 09/08/18 09/08/18 Previous Rx's ?Medication ?Instructions ?Recorded azithromycin 250 mg tablet 250 mg PO DIRECTED #6 tabs 02/02/22 prednisone 20 mg tablet 20 mg PO BID #10 tabs 02/02/22 amoxicillin 500 mg capsule 500 mg PO TID #30 caps 05/14/22 [id number] 3.5 4 drp otic (ear) QID 7 days #10 mL 05/14/22 mg-10,000 unit/mL-1 % ear drops,susp Allergies Allergy/AdvReac Type Severity Reaction Status Date / Time codeine Allergy Verified 12/25/20 13:29 Sulfa (Sulfonamide Allergy Verified 12/25/20 13:29 Antibiotics) [facility] Disclaimer: The information contained in this section may have been updated after the patient was seen, as this information can be updated by other users. Medical History (Updated 09/14/25 @ 02:32 by Kristan Watson APRN) Diabetes mellitus, type 2 Anxiety Hypertension Surgical History (Updated 08/07/22 @ 10:46 by Caterina Parada RN) History of abdominoplasty History of breast augmentation Social History (Updated 08/07/22 @ 10:46 by Caterina Parada RN) Smoking Status: Never smoker alcohol intake: never current occupational status: other Travel in the last 8 weeks?: None household members: family housing: house ROS Obtained: Yes Systems reviewed as appropriate & no additional complaints except as documented Per HPI Physical Exam General General appearance: alert and in no apparent distress Head Head exam: atraumatic and normocephalic Eye Eye exam: Present PERRL and EOMI ENT ENT exam: Present mucous membranes moist Neck Neck exam: Present normal inspection and full ROM; Absent lymphadenopathy Chest Chest inspection: Present symmetric chest wall rise; Absent tenderness Respiratory Respiratory exam: Present normal lung sounds bilaterally; Absent respiratory distress, wheezes or stridor Cardiovascular Cardiovascular exam: Present tachycardia and irregular rhythm Abdominal Exam Abdominal exam: Present soft; Absent distention, tenderness, guarding or rebound Extremities Exam Extremities exam: Present full ROM and normal capillary refill; Absent edema Neurological Exam Neurological exam: Present alert, oriented X3, CN II-XII intact and other (GCS 15, NIH 0); Absent motor sensory deficit Psychiatric Psychiatric exam: Present normal affect and normal mood Skin Skin exam: Present warm and dry Medical Decision Making Medical Records Medical records reviewed: Yes I reviewed the patient's medical records. Screening: Per USPSTF and CDC recommendations, given the prevalence of disease in our region, it is our hospital?s policy to screen for HIV and viral Hepatitis for all patients aged 18 and over and those with ongoing risk factors. Adrian Inquiry Pt receiving controlled substance: No Vital Signs: 09/14/25 00:07 09/14/25 01:21 09/14/25 01:47 Temperature 98.7 F Temperature Source Oral Pulse Rate 123 H 134 H Respiratory Rate 18 16 16 Blood Pressure 118/73 123/79 Blood Pressure [Right Arm] 109/77 L Blood Pressure Mean [Right Arm] 87 Blood Pressure Position [Right Arm] Sitting 02 Sat by Pulse Oximetry 100 100 99 Oxygen Delivery Method Nasal Cannula Nasal Cannula Nasal Cannula Oxygen Flow Rate (LPM) 2 2 2 09/14/25 01:57 09/14/25 02:13 Temperature Temperature Source Pulse Rate 112 H 122 H Respiratory Rate 14 Blood Pressure 107/72 L Blood Pressure [Right Arm] Blood Pressure Mean [Right Arm] Blood Pressure Position [Right Arm] 02 Sat by Pulse Oximetry 97 Oxygen Delivery Method Nasal Cannula Nasal Cannula Oxygen Flow Rate (LPM) 2 2 Lab Data Lab Results 09/13/25 23:52: VBG pH 7.33, VBG pCO2 47.1, VBG pO2 33.2, VBG HCO3 24.3, VBG Total CO2 25.8, VBG O2 Saturation 58.2, VBG Base Excess -1.6, VBG Lactic Acid 1.6 09/13/25 23:58: WBC 8.3, RBC 3.83 L, Hgb 11.8 L, Hct 36.4 L, MCV 95.0, MCH 30.8, MCHC 32.4, RDW 13.6, Plt Count 255, MPV 10.8 H, Neut % (Auto) 75.5, Lymph % (Auto) 18.7, Porter % (Auto) 5.3, Eos % (Auto) 0.0 L, Baso % (Auto) 0.1, Neut # (Auto) 6.3, Lymph # (Auto) 1.6, Porter # (Auto) 0.4, Eos # (Auto) 0.0, Baso # (Auto) 0.0, Sodium 133 L, Potassium 4.7, Chloride 99, Carbon Dioxide 26, Anion Gap 12.7, BUN 30 H, Creatinine 1.10 H, Estimated Creat Clear 61, Estimated GFR 50 L, Est GFR ( Amer) 61, Glucose 210 H, Calcium 9.5, Total Bilirubin 0.9, AST 151 H, ALT 362 H*, Alkaline Phosphatase 247 H, Troponin I 0.06 H, NT-Pro-B Natriuret Pep 190 H, Total Protein 8.1, Albumin 3.7, Globulin 4.4 H, Albumin/Globulin Ratio 0.8 L, Lipase 208, Plasma/Serum Alcohol < 10 09/14/25 01:02: Chlamy pneumoniae PCR Not detected, Adenovirus (PCR) Not detected, B. pertussis DNA (PCR) Not detected, Coronavirus OC43 (PCR) Not detected, Coronavirus HKU1 (PCR) Not detected, Coronavirus 229E (PCR) Not detected, SARS-CoV-2 (PCR) Not detected, Coronavirus NL63 (PCR) Not detected, Human Metapneumovir PCR Not detected, Influenza A (H1) PCR Not detected, Influ A (H1N1/09) PCR Not detected, Influenza A (H3) PCR Not detected, Influenza Type A (PCR) Not detected, Influenza Type B (PCR) Not detected, M. pneumoniae (PCR) Not detected, Parainfluenza 1 (PCR) Not detected, Parainfluenza 2 (PCR) Not detected, Parainfluenza 3 (PCR) Not detected, Parainfluenza 4 (PCR) Not detected, RSV (PCR) Not detected, Entero/Rhino (PCR) Not detected 09/13/25 23:58 09/13/25 23:58 Orders (Tests/Meds): ED MEDICATIONS Generic Name Dose Route Start Last Admin Trade Name Freq PRN Reason Stop Dose Admin Diltiazem HCl 100 mg/ Sodium 100 mls @ 5 mls/hr 09/14/25 02:27 Chloride IV 10/14/25 02:26 .Q20H GLADIS Protocol 5 MG/HR Nitroglycerin 0.4 mg 09/13/25 23:56 Nitroglycerin 0.4mg Sl Tablet SL 09/14/25 23:56 Q5MINP PRN Chest Pain Discontinued Medications Generic Name Dose Route Start Last Admin Trade Name Frechar PRN Reason Stop Dose Admin Aspirin 324 mg 09/13/25 23:56 09/14/25 00:20 Aspirin 81mg Chewable Tablet PO 09/13/25 23:57 324 mg ONCE ONE Administration Diltiazem HCl 15 mg 09/14/25 00:09 09/14/25 00:19 Diltiazem 25mg/5ml Vial IV 09/14/25 00:10 15 mg ONCE ONE Administration Diltiazem HCl 15 mg 09/14/25 00:26 09/14/25 00:29 Diltiazem 25mg/5ml Vial IV 09/14/25 00:27 15 mg ONCE ONE Administration Diltiazem HCl 10 mg 09/14/25 01:47 09/14/25 01:54 Diltiazem 25mg/5ml Vial IV 09/14/25 01:48 10 mg ONCE ONE Administration Enoxaparin Sodium 70 mg 09/14/25 02:30 09/14/25 02:25 Enoxaparin 80mg/0.8ml Syringe SUBCUT 09/14/25 02:31 70 mg ONCE ONE Administration Lactated Ringer's 1,000 mls @ 999 mls/hr 09/13/25 23:57 09/14/25 00:19 Lactated Ringer's 1000 Ml Bag IV 09/14/25 00:57 999 mls/hr .Q1H1M ONE Administration Iopamidol 150 ml 09/14/25 01:03 09/14/25 01:04 Iopamidol-370 (76%);100ml Bottle IV 09/14/25 01:04 150 ml ONCE ONE Administration Sodium Chloride 50 ml 09/14/25 01:03 09/14/25 01:04 0.9 % Sodium Chloride 50 Ml Vial IV 09/14/25 01:04 50 ml ONCE ONE Administration Sodium Chloride 10 ml 09/14/25 01:03 09/14/25 01:04 Sodium Chloride 0.9% 10ml Syr (Rad Only) IV 09/14/25 01:04 10 ml ONCE ONE Administration ORDERS Category Date Time Status CT abdomen pelvis w con Stat Cat Scan 09/13/25 23:[address] angio chest PE protocol Stat Cat Scan 09/13/25 23:[address] angio head Stat Cat Scan 09/14/25 00:[address] angio neck Stat Cat Scan 09/14/25 00:[address] head/brain wo con Stat Cat Scan 09/13/25 23:56 Completed Consult to Cardiology [CONS] Routine Cons 09/14/25 02:20 Active CXR --portable [XR chest portable] Stat Exams 09/14/25 00:12 Completed BNP [NT Pro Brain Natriuretic Pep.] Stat Lab 09/13/25 23:58 Completed Complete Blood Count Auto Diff AMLAB Lab 09/14/25 06:00 Ordered Complete Blood Count Auto Diff Stat Lab 09/13/25 23:58 Completed Comprehensive Metabolic Panel AMLAB Lab 09/14/25 06:00 Ordered Comprehensive Metabolic Panel Stat Lab 09/13/25 23:58 Completed Ethanol [Ethyl Alcohol] Stat Lab 09/13/25 23:58 Completed Full Resp Panel w/COVID ([facility]) Routine Lab 09/14/25 01:02 Completed Lipase Stat Lab 09/14/25 01:26 Completed Troponin I Q3H Lab 09/14/25 03:00 Ordered Troponin I Q3H Lab 09/14/25 06:00 Ordered Troponin I Stat Lab 09/13/25 23:58 Completed UDS [Drug Screen,Urine] Stat Lab 09/13/25 23:57 Ordered Urinalysis and Microscopic Stat Lab 09/13/25 23:57 Ordered VBG [Venous Blood Gas] Stat RT 09/13/25 23:52 Completed Medical Decision Narrative: In summary, this 60-year-old female with comorbidities described in the HPI presents to the emergency department today with complaints of mild headache, nausea, vomiting. On initial evaluation patient is tachycardic with irregular rhythm, not significantly hypotensive, afebrile, GCS 15, NIH 0, no neurologic deficits, denies chest discomfort or sensation of palpitations, abdominal exam benign with no areas of tenderness. No peripheral edema. Lungs clear bilaterally. Differential diagnosis includes but is not limited to ACS, PE, electrolyte abnormality, arrhythmia, viral syndrome, urinary tract infection, I did consider intracranial bleed, mass, I do not have high suspicion for ischemia since patient has no neurologic deficits but given her history I think it is prudent to still evaluate her vasculature. Based on these concerns, I ordered hematologic and serum labs, urine studies, VBG, cardiac workup, CT angiography of the head and neck, CT Noncon of head, CTA PE, CT abdomen pelvis with contrast. Initial ECG personally interpreted demonstrates atrial fibrillation with rapid ventricular response, rate 169, normal axis, normal QTc, nonspecific ST abnormalities likely related to rate but no STEMI. Patient received diltiazem, IV fluids, aspirin for treatment. Multiple pushes of IV diltiazem were administered in order to gain rate control. Patient tolerated these well. Rate improved to the low 100s. It was consistently between 97 and 115 and her blood pressure improved. Labs personally reviewed demonstrate no leukocytosis, mild anemia with hemoglobin 11.8 is nonactionable, normal platelets, VBG normal with normal pH, pCO2, and lactic. Trace hyponatremia on CMP is nonactionable at this time, patient has mild prerenal azotemia but is already receiving IV fluids. She does have transaminitis and troponin elevation at 0.06 which I believe is likely related to patient's RVR that we do not know the duration of. Repeat ECG pending. Patient's opened her MyChart from [facility] and showed me her previous labs. She previously had very slight transaminitis with AST in the 40s, ALT in the low 100s. Her transaminitis today is worse than last but patient has no right upper quadrant tenderness or discomfort. BNP mildly elevated at 190 but patient does not exhibit findings of peripheral edema or other evidence of volume overload. Patient has not yet provided a urine sample. Chest x-ray personally interpreted does not demonstrate lobar infiltrate or other acute intrathoracic abnormality, see radiology read for final interpretation. CT head personally interpreted demonstrates no intracranial bleed, mass, or midline shift, see radiology read for final interpretation. I received a phone call from the reading radiologist for the angiography studies who comments on left ICA occlusion. I appreciate his call however I have already reviewed the MRI results from [facility] which demonstrate this is chronic. Reading radiologist states there is no acute LVO and in the setting of no neurologic deficits I am very reassured. CTA PE personally interpreted demonstrates no acute parenchymal abnormality or segmental or subsegmental PE, see radiology read for final interpretation. I received a phone call from the reading radiologist regarding the CT abdomen pelvis and she was concerned that the appendix measures 7.8 mm and is fluid-filled but states there is no thickening or periappendiceal fat stranding. She reported concern for possible early appendicitis. I reexamined the patient and she has no right lower quadrant tenderness to palpation and is not having any pain in this region. She also has no leukocytosis or fever. I have very low suspicion for appendicitis but since the radiologist commented about concern for this, I reached out to our general surgeon. I spoke with Dr. Warren who after discussion of the patient's presentation, labs, clinical exam, and radiology read reported he believes this is a radiologic anomaly and does not represent appendicitis. He does not have concerns or further recommendations at this time. All results were discussed with the patient and family at length. Because the patient does have elevated troponin likely type II NSTEMI, I did administer Lovenox after discussing her dosing with the [facility] pharmacist on-call. Repeat ECG personally interpreted demonstrates A-fib with RVR, rate 119, normal axis, normal QTc, no STEMI. After long discussion with the patient and family I believe she is appropriate for admission at this facility and patient and family are comfortable with this as long as she does not require acute surgical intervention. They report if she were to require surgery they would prefer it be performed at [facility] because of her risk of stroke and that being where her neurosurgeon is. I understand this but we discussed that the surgeon does not believe there is an indication for surgery at this time and while things could change this is reassuring. They are agreeable to admission here and I discussed this case with the hospitalist, Kristan at length. We reviewed all abnormalities, patient's history, interventions in the ER, and results. Patient was graciously accepted for admission and admitted in stable condition. Critical Care Critical Care Time Critical Care Time: Yes Attestation: On 09/13/25, the high probability of a clinically significant, sudden or life threatening deterioration of the following system(s) (cardiac) required my full and direct attention, intervention and personal management. The time I documented below is in addition to time spent performing reported procedures but includes the following listed in this critical care notation. Total Time Total Critical Care Time: 35
--- NOTE | 2025-09-14 02:31 | P.HP_ITS ---
<Statement entered by Beto Hall MD - 09/17/25 15:38> Agree with plan of care as outlined by the [employer]. <Statement entered by Evelyn Darden APRN - 09/14/25 14:36> Ms. Cox has done well today. Denies chest pain or shortness of breath. Still appears hypovolemic, currently receiving IV fluids, denies nausea and vomiting. Tolerated p.o. diet without issues. Cardiology consulted recommending RONY with cardioversion and C for NSTEMI. Patient expressed interest in possible transfer to [facility] where her neurosurgeon is located, Dr. Yun. Cardiology consulted with Dr. Yun who feels it is appropriate for patient to stay at [facility] for cardiac workup. Patient remains stable on diltiazem drip weaning as tolerated. Patient in atrial fibrillation, rate controlled currently. Echo today showed normal BiV function with EF of 70%. Plans for RONY with cardioversion in the a.m. and LHC tomorrow afternoon. N.p.o. after midnight. After discussion with Dr. Yun he feels it is very important that the patient's systolic blood pressure remain above 120 due to chronic severe/critical nearly occluded left intracranial carotid artery. Patient was also found to have a urinary tract infection, receiving ceftriaxone daily. Patient currently asymptomatic. History of Present Illness *Admission Date: 09/14/25 *Reason for visit:: Near syncope, nausea, vomiting *History of present illness: Patient is a 60-year-old female with past medical history significant for TIA, occlusion of left internal carotid artery, type 2 diabetes mellitus, hypertension, bladder prolapse with recurrent UTI. Presents to [facility] due to nausea, vomiting and near syncopal episodes. Patient states earlier in the day while with her in the car, she developed an overwhelming feeling of nausea and ultimately multiple episodes of emesis. Patient states when they arrived home she immediately went to the bathroom. While walking to the bathroom she began to feel extremely lightheaded and weak. Reports she did not pass out, but felt as though she was going to. Her was present during episode and was able to lower her to the ground safely. Has been noted this occurred a couple times. States she ultimately laid on the ground to relieve symptoms. Per has been discussed with patient's neurologist and recommended following up to [facility] as it is the closest. EMS was notified and she was transferred to our facility. Initial assessment per EMS stated patient was hypoxic on their arrival along with atrial fibrillation finding. They placed her on 2 L nasal cannula and transferred to our facility. H mentioned she has had poor fluid intake over the last several days and was concerned for dehydration after multiple vomiting episodes throughout the day. Patient states that she had a mild headache on arrival. Upon assessment of patient at bedside, she was without acute distress, resting in bed. Denies fever, chills, chest pain, diarrhea. ED workup included laboratory studies and imaging. Significant laboratory findings included sodium 133, BUN 30, creatinine 1.10, GFR 50, glucose 210, AST 151, ALT 362, alkaline phosphatase 247, BNP 190. PCR panel unremarkable/negative. CTA head and neck showing occluded left ICA with reconstitution of flow in the JERMAINE and MCA above the clinoid. Chest CTA: Unremarkable. Abdomen/pelvis CT: 7.8 mm appendix but no significant surrounding inflammatory changes. These findings could indicate early acute appendicitis. [facility] Disclaimer: The information contained in this section may have been updated after the patient was seen, as this information can be updated by other users. Medical History 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 Diabetes mellitus, type 2 Anxiety Hypertension Surgical History History of abdominoplasty History of breast augmentation Social History Smoking Status: Never smoker alcohol intake: never current occupational status: other Travel in the last 8 weeks?: None household members: family housing: house Review of Systems Review of Systems Review of systems:: pertinent systems reviewed and negative unless documented below Constitutional Constitutional: Reports system reviewed and no additional complaints, except as documented Eyes Eyes: Reports system reviewed and no additional complaints, except as documented ENT Ears, Nose, Mouth, and Throat: Reports system reviewed and no additional complaints, except as documented *Cardiovascular Cardiovascular: Reports as per HPI *Respiratory Respiratory: Reports system reviewed and no additional complaints, except as documented and Reports as per HPI *Gastrointestinal Gastrointestinal: Reports nausea and Reports vomiting *Genitourinary Genitourinary: Reports as per HPI and Reports prolapse symptoms *Musculoskeletal Musculoskeletal: Reports as per HPI Integumentary/Breasts Skin/Breast: Reports as per HPI *Neurologic Neurologic: Reports as per HPI Psychiatric Psychiatric: Reports system reviewed and no additional complaints, except as documented Endocrine Endocrine: Reports system reviewed and no additional complaints, except as documented Hematologic/Lymphatic Hematologic/Lymphatic: Reports system reviewed and no additional complaints, except as documented Allergic/Immunologic Allergic/Immunologic: Reports system reviewed and no additional complaints, except as documented Meds Home Medications and Allergies Home Medications ?Medication ?Instructions ?Recorded ?Confirmed ?Type aspirin 81 mg chewable tablet 81 mg PO DAILY 09/14/25 09/14/25 History atorvastatin 80 mg tablet 80 mg PO HS 09/14/25 History bethanechol chloride 10 mg tablet 10 mg PO TID 09/14/25 History carvedilol 12.5 mg tablet 12.5 mg PO BID 09/14/2508/18 History clopidogrel 75 mg tablet 75 mg PO DAILY 09/14/2508/18 History dapagliflozin propanediol 5 mg 5 mg PO DAILY 09/14/25 09/14/25 History tablet diphenhydramine HCl 25 mg capsule 25 mg PO BID 09/14/25 History (Benadryl) ezetimibe 10 mg tablet 10 mg PO DAILY 09/14/2508/18 History insulin glargine 100 unit/mL (3 20 unit SQ PM 09/14/25 09/14/25 History mL) subcutaneous pen (Basaglar KwikPen U-100 Insulin) insulin glargine 100 unit/mL (3 40 unit SQ AM 09/14/25 09/14/25 History mL) subcutaneous pen (Basaglar KwikPen U-100 Insulin) lisinopril 10 mg tablet 10 mg PO DAILY 09/14/2508/18 History tamsulosin 0.4 mg capsule 0.4 mg PO DAILY 09/14/25 History tirzepatide 7.5 mg/0.5 mL 7.5 mg SQ WEEKLY 09/14/25 History subcutaneous pen injector (Minh) venlafaxine 75 mg capsule,extended 75 mg PO DAILY 08/1809/14/25 History release 24 hr New Prescriptions to Start Prescriptions: Allergies Allergy/AdvReac Type Severity Reaction Status Date / Time codeine Allergy Verified 12/25/20 13:29 Sulfa (Sulfonamide Allergy Verified 12/25/20 13:29 Antibiotics) Exam Data for Last 24 hours Vital signs and Labs for Last 24 Hours: Temp Pulse Resp BP Pulse Ox O2 Del Method O2 Flow Rate 98.7 F 122 H 14 107/72 L 97 Nasal Cannula 2 09/14/25 00:07 09/14/25 02:13 09/14/25 02:13 09/14/25 02:13 09/14/25 02:13 09/14/25 02:13 09/14/25 02:13 Laboratory Results - last 24 hr 09/13/25 23:52: VBG pH 7.33, VBG pCO2 47.1, VBG pO2 33.2, VBG HCO3 24.3, VBG Total CO2 25.8, VBG O2 Saturation 58.2, VBG Base Excess -1.6, VBG Lactic Acid 1.6 09/13/25 23:58: WBC 8.3, RBC 3.83 L, Hgb 11.8 L, Hct 36.4 L, MCV 95.0, MCH 30.8, MCHC 32.4, RDW 13.6, Plt Count 255, MPV 10.8 H, Neut % (Auto) 75.5, Lymph % (Auto) 18.7, [place] % (Auto) 5.3, Eos % (Auto) 0.0 L, Baso % (Auto) 0.1, Neut # (Auto) 6.3, Lymph # (Auto) 1.6, [place] # (Auto) 0.4, Eos # (Auto) 0.0, Baso # (Auto) 0.0, Sodium 133 L, Potassium 4.7, Chloride 99, Carbon Dioxide 26, Anion Gap 12.7, BUN 30 H, Creatinine 1.10 H, Estimated Creat Clear 61, Estimated GFR 50 L, Est GFR ( Amer) 61, Glucose 210 H, Calcium 9.5, Total Bilirubin 0.9, AST 151 H, ALT 362 H*, Alkaline Phosphatase 247 H, Troponin I 0.06 H, NT-Pro-B Natriuret Pep 190 H, Total Protein 8.1, Albumin 3.7, Globulin 4.4 H, Albumin/Globulin Ratio 0.8 L, Lipase 208, Plasma/Serum Alcohol < 10 I & O for Last 24 hours: Intake & Output 09/11/25 09/12/25 09/13/25 09/14/25 23:59 23:59 23:59 23:59 Weight 72.575 kg Constitutional Constitutional: mild distress *Routine HEENT Exam Head: Present normocephalic Eye: Present EOMI, PERRL and normal accommodation ENT: Present mucous membranes moist *Routine Neck Exam Neck: Present supple and full ROM *Routine Respiratory Exam Respiratory: Present normal respiratory effort *Routine Cardiovascular Exam Cardiovascular: Present irregular rhythm *Routine Abdominal Exam Abdominal: Present soft and normoactive bowel sounds *Routine Rectal Exam Rectal:: deferred *Routine Genitalia Exam Genitalia:: deferred *Routine Skin Exam Skin: Present intact *Routine Neurological Exam Neurological: Present alert, oriented X3 and CN II-XII intact Routine Psychiatric Exam Psychiatric: Present normal affect Assessment and Plan *Assessment and plan (1) Atrial fibrillation with RVR: Status: Acute Category: Medical Code(s): I48.91 - Unspecified atrial fibrillation (2) Elevated troponin: Status: Acute Category: Medical Code(s): R79.89 - Other specified abnormal findings of blood chemistry (3) Nausea & vomiting: Status: Acute Qualifiers: Vomiting type: unspecified Qualified Code(s): R11.2 - Nausea with vomiting, unspecified Category: Medical Code(s): R11.2 - Nausea with vomiting, unspecified (4) Poor fluid intake: Status: Acute Category: Medical Code(s): R63.8 - Other symptoms and signs concerning food and fluid intake (5) Postural dizziness with near syncope: Status: Acute Category: Medical Code(s): R42 - Dizziness and giddiness; R55 - Syncope and collapse (6) Transaminitis: Status: Acute Category: Medical Code(s): R74.01 - Elevation of levels of liver transaminase levels (7) KONSTANTIN (acute kidney injury): Status: Acute Category: Medical Code(s): N17.9 - Acute kidney failure, unspecified (8) TIA (transient ischemic attack): Status: Acute Category: Medical Code(s): G45.9 - Transient cerebral ischemic attack, unspecified (9) Diabetes mellitus, type 2: Status: Acute Qualifiers: Diabetes mellitus custodial insulin use: without terminal supervisor use Category: Medical Code(s): E11.9 - Type 2 diabetes mellitus without complications (10) Hypertension: Status: Acute Qualifiers: Hypertension type: unspecified Qualified Code(s): I10 - Essential (primary) hypertension Category: Medical Code(s): I10 - Essential (primary) hypertension (11) Recurrent urinary tract infection: Status: Acute Category: Medical Code(s): N39.0 - Urinary tract infection, site not specified Plan 1. Atrial fibrillation with RVR/elevated troponin: New onset atrial fibrillation. Received Cardizem bolus with therapeutic dose Lovenox in the emergency department. Heart rate sustaining 150-160 while in the ICU, Cardizem drip initiated. Continuous cardiac monitoring with anticoagulation. Continuous cardiac monitoring. Titrate drip as appropriate to keep heart rate less than or equal to 115. Troponin series initiated on the emergency department, initial troponin level 0.06, repeat 0.28-> likely due demand ischemia secondary to atrial fibrillation. Consult placed to cardiology for further evaluation and input. Defer further changes to cardiology. 2. Nausea/vomiting/poor fluid intake/dehydration: Poor fluid intake over the past several days with nausea vomiting over the last 24 hours. Possibly contributing to underlying new onset atrial fibrillation. Received 1 L normal saline bolus while emergency department. Blood pressure soft with sustained elevated heart rate after transition to the ICU-additional IV fluid ordered for hydration. IV Zofran as needed for nausea management. Monitor intake output. 3. Posterior oral dizziness with near syncope: Suspect underlying atrial fibrillation contributing factor of symptoms. at bedside states he was able to lower patient to the ground during episodes. Does monitor closely while ambulating or standing, fall precautions. 4. Transaminitis: AST 151, ALT 362, alkaline phosphatase 247. Undetermined etiology-possibly correlating with dehydration and/or infection? CT abdomen and pelvis imaging noted 7.8 mm appendix but without inflammatory changes but suggest possible early acute appendicitis? Patient denies abdominal pain. Hepatitis panel requested. Resume IV fluids, CMP follow-up. 5. History of TIA/complete occlusion of the left ICA: Patient with history of TIA and also complete occlusion of the left ICA. Patient follows closely with neurology at [facility]. Imaging scans obtained while in the emergency department were unremarkable for any acute findings. 6. Bladder prolapse/recurrent UTI: UA positive with urine protein 2+, leukocyte esterase 1+, bacteria 3+. Patient follows with urology due to history who also noted urinary tract infection at her appointment. Urine culture obtained and pending. IV Rocephin initiated. Follow culture. 7. KONSTANTIN: Creatinine 1.01, mild bump in baseline. at bedside providing laboratory history per my chart, with a baseline creatinine approximately 0.07?0.08. Suspect underlying dehydration contributing factor. IV fluids for hydration. Monitor labs in the morning. 8. Diabetes type 2: Elevated on arrival 210- insulin sliding scale, Accu-Cheks ACHS, diabetic diet. 9. Hypertension: Soft BP on presentation-100/70 range-holding antihypertensive medication, receiving IV fluids secondary to dehydration. Monitor vitals closely. 10. DVT prophylaxis: Therapeutic Lovenox Full code I personally discussed the management of this patient with the emergency department provider. New onsrt atrial fibrillation RVR, elevated liver enzymes, possible urinary tract infection, dehydration. Patient admitted for further treatment of atrial fibrillation with Cardizem drip, IV fluid for hydration, follow-up workup follow-up elevated liver enzymes.
[2025-09-14 04:15] LABS: Microscopic, Urine URINE MICROSCOPIC (MICROSCOPIC)
[2025-09-14 04:33] LABS: Barbiturates Screen,Urine Negative ng/ml (<200); Bilirubin,Urine Negative (Negative); Color,Urine YELLOW (Yellow); Glucose,Urine (UA) 1+ (Negative); Ketones,Urine TRACE (Negative); Leukocyte Esterase,Urine 1+ (Negative); PH,Urine 5.5 (5.0-8.5); Protein,Urine 2+ (Negative); Specific Gravity, Urine 1.015 (1.005-1.030); Urobilinogen,Urine 0.2 EU/dl (0.2)
[2025-09-14 04:34] LABS: Amphetamine/Metha Screen,Urine Negative ng/ml (<1000); Benzodiazepines Screen,Urine Negative ng/ml (<200)
[2025-09-14 04:36] LABS: Methadone Screen,Urine Negative ng/ml (<300)
[2025-09-14 04:37] LABS: Bacteria,Urine 3+ /lpf; Opiate Screen,Urine Negative ng/ml (<300); WBC,Urine 20-50 #/hpf (0-3)
[2025-09-14 04:38] LABS: Phencyclidine Screen,Urine Negative ng/ml (<25)
[2025-09-14 05:25] LABS: Troponin I 0.28 ng/ml (0.00-0.034)
--- NOTE | 2025-09-14 05:30 | PC.NURSE ---
Notified the provider of a critical Trop level. Provider acknowledged. Provider asked if any changes were noted, as of this moment pt heart rate is going from 130's to 110's. Pt denies any chest pain or any discomfort.
--- NOTE | 2025-09-14 05:42 | PC.NURSE ---
OK to use Dexcom per Kristan, DIRECTOR DECISION SUPPORT
[2025-09-14] MEDS: CEFTRIAXONE 1 GM 1 GM in 0.9 % SODIUM CHLORIDE 50 ML IV (06:33)
--- NOTE | 2025-09-14 08:20 | CA_ITS ---
APPROVED REPORT EXAM: Comprehensive 2D, Doppler, and color-flow Echocardiogram Shrimp Peeler: Alaina BarriosISRAEL Ht: 5 ft 8 in Wt: 163lbs BSA: 1.87 BP: 107/72 mmHg Indications: A-FIB,NSTEMI M-Mode Dimensions RVDd 2.61 cm (0.9-2.6) LA Diam 3.07 cm (1.9-4.0) LVDd 3.40 cm (3.5-5.7) LVDs 2.50 cm (3.5-5.7) IVSd 0.75 cm (0.6-1.1) PWd 0.61 cm (0.6-1.1) EF (Teich) 53.00% FS 26.50% EDV (Teich) 47.40 mL ESV (Teich) 22.30 mL Tricuspid Valve TR P. Velocity 196.00 cm/s RAP Estimate 8.00 mmHg RVSP 23.40 mmHg Left Ventricle The left ventricle is normal size. Left ventricular systolic function is hyperdynamic. There is increased left ventricular wall thickness. There is normal LV segmental wall motion. The left ventricular diastolic function is normal. LVEF is 70% Right Ventricle The right ventricle is normal size. The right ventricular systolic function is normal. Atria The left atrium size is normal. The right atrium size is normal. There is no color Doppler evidence of interatrial shunt. Aortic Valve The aortic valve is mildly thickened. There is no hemodynamically significant aortic valvular stenosis. Trace aortic regurgitation is present. Mitral Valve The mitral valve is normal in structure. No evidence of mitral valve stenosis. Trace mitral regurgitation is present. Tricuspid Valve The tricuspid valve leaflets are thin and pliable. Mild tricuspid regurgitation. RVSP is 20-25 mmHg. Pulmonic Valve The pulmonary valve is grossly normal in structure. Trace pulmonic valve regurgitation is present. Great Vessels The aortic root is normal in size. IVC is normal in size and collapses >50% with inspiration. Pericardium There is no pericardial effusion. Other Information Study Quality: Fair Conclusion Hyperdynamic LV systolic function (LVEF 70%). Mild TR. Electronically signed by : Amanda Castillo MD 09/14/2025 12:59:36
[2025-09-14 08:30] LABS: Albumin Level 2.9 g/dl (3.5-5.0); Chloride 101 mmol/L (98-107); Hematocrit 34.1 % (37.0-47.0); Hemoglobin 11.4 g/dL (12.2-16.2); Immature Granulocytes % 0.3 %; Mean Corpuscular HGB Conc 33.4 g/dL (31.8-35.4); Mean Corpuscular Hemoglobin 31.4 pg (27.0-31.2); Mean Corpuscular Volume 93.9 fl (81-99); Nucleated Red Blood Cells % 0 %; Platelet Count 240 K/mm3 (142-424); Potassium 4.5 mmoL/L (3.5-5.1); Red Blood Count 3.63 M/mm3 (4.20-5.40); Red Cell Distribution Width-SD 46.7 fL; Sodium 132 mmol/L (136-145); White Blood Count 7.3 K/mm3 (4.8-10.8)
[2025-09-14 08:33] LABS: Alanine Aminotransferase 271 U/L (12-78); Albumin/Globulin Ratio 0.7 (1.1-1.8); Alkaline Phosphatase 184 U/L (38-126); Anion Gap 7.5 mEq/L (5-15); Aspartate Amino Transferase 93 U/L (14-36); Bilirubin,Total 0.5 mg/dl (0.2-1.3); Calcium 8.9 mg/dl (8.4-10.2); Carbon Dioxide 28 mmol/L (22.0-30.0); Globulin 3.9 g/dL (1.3-3.2); Glucose 142 mg/dl (74-100); Total Protein,Serum 6.8 g/dl (6.3-8.2)
[2025-09-14 08:34] LABS: Magnesium 2.0 mg/dl (1.6-2.3)
[2025-09-14 08:38] LABS: Blood Urea Nitrogen 25 mg/dl (7-17)
--- NOTE | 2025-09-14 09:13 | EXP.PULM.CON ---
[facility] Disclaimer: The information contained in this section may have been updated after the patient was seen, as this information can be updated by other users. Medical History 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 Diabetes mellitus, type 2 Anxiety Hypertension Surgical History History of abdominoplasty History of breast augmentation Social History Smoking Status: Never smoker alcohol intake: never current occupational status: other Travel in the last 8 weeks?: None household members: family housing: house Review of Systems *Neurologic Neurologic: Reports as per [facility] Pulmonology Exam Inpatient Vital signs and Labs for Last 24 Hours: Temp Pulse Resp BP Pulse Ox O2 Del Method O2 Flow Rate 97.6 F 85 17 117/73 96 Room Air 2 09/14/25 08:01 09/14/25 08:01 09/14/25 08:01 09/14/25 08:01 09/14/25 08:01 09/14/25 08:01 09/14/25 07:01 Laboratory Results - last 24 hr 09/13/25 23:52: VBG pH 7.33, VBG pCO2 47.1, VBG pO2 33.2, VBG HCO3 24.3, VBG Total CO2 25.8, VBG O2 Saturation 58.2, VBG Base Excess -1.6, VBG Lactic Acid 1.6 09/13/25 23:58: WBC 8.3, RBC 3.83 L, Hgb 11.8 L, Hct 36.4 L, MCV 95.0, MCH 30.8, MCHC 32.4, RDW 13.6, Plt Count 255, MPV 10.8 H, Neut % (Auto) 75.5, Lymph % (Auto) 18.7, Mcdowell % (Auto) 5.3, Eos % (Auto) 0.0 L, Baso % (Auto) 0.1, Neut # (Auto) 6.3, Lymph # (Auto) 1.6, Mcdowell # (Auto) 0.4, Eos # (Auto) 0.0, Baso # (Auto) 0.0, Sodium 133 L, Potassium 4.7, Chloride 99, Carbon Dioxide 26, Anion Gap 12.7, BUN 30 H, Creatinine 1.10 H, Estimated Creat Clear 61, Estimated GFR 50 L, Est GFR ( Amer) 61, Glucose 210 H, Calcium 9.5, Total Bilirubin 0.9, AST 151 H, ALT 362 H*, Alkaline Phosphatase 247 H, Troponin I 0.06 H, NT-Pro-B Natriuret Pep 190 H, Total Protein 8.1, Albumin 3.7, Globulin 4.4 H, Albumin/Globulin Ratio 0.8 L, Lipase 208, Plasma/Serum Alcohol < 10 09/14/25 01:02: Chlamy pneumoniae PCR Not detected, Adenovirus (PCR) Not detected, B. pertussis DNA (PCR) Not detected, Coronavirus OC43 (PCR) Not detected, Coronavirus HKU1 (PCR) Not detected, Coronavirus 229E (PCR) Not detected, SARS-CoV-2 (PCR) Not detected, Coronavirus NL63 (PCR) Not detected, Human Metapneumovir PCR Not detected, Influenza A (H1) PCR Not detected, Influ A (H1N1/09) PCR Not detected, Influenza A (H3) PCR Not detected, Influenza Type A (PCR) Not detected, Influenza Type B (PCR) Not detected, M. pneumoniae (PCR) Not detected, Parainfluenza 1 (PCR) Not detected, Parainfluenza 2 (PCR) Not detected, Parainfluenza 3 (PCR) Not detected, Parainfluenza 4 (PCR) Not detected, RSV (PCR) Not detected, Entero/Rhino (PCR) Not detected 09/14/25 03:08: Troponin I 0.28 H 09/14/25 03:30: Urine Color Yellow, Urine Appearance Cloudy, Urine pH 5.5, Ur Specific [place] 1.015, Urine Protein 2+ A, Urine Glucose (UA) 1+, Urine Ketones Trace, Urine Blood Trace-l, Urine Nitrate Negative, Urine Bilirubin Negative, Urine Urobilinogen 0.2, Ur Leukocyte Esterase 1+ A, Urine RBC 3-5, Urine WBC 20-50, Ur Squamous Epith Cells 3-5, Urine Bacteria 3+, Urine Opiates Screen Negative, Urine Methadone Screen Negative, Ur Barbituates Screen Negative, Ur Phencyclidine Scrn Negative, Ur Amphetamines Screen Negative, U Benzodiazepines Scrn Negative, Urine Cocaine Screen Negative, U Marijuana (THC) Screen Negative 09/14/25 08:16: WBC 7.3, RBC 3.63 L, Hgb 11.4 L, Hct 34.1 L, MCV 93.9, MCH 31.4 H, MCHC 33.4, RDW 13.6, Plt Count 240, MPV 10.6 H, Neut % (Auto) 66.3, Lymph % (Auto) 25.9, Mcdowell % (Auto) 7.4, Eos % (Auto) 0.0 L, Baso % (Auto) 0.1, Neut # (Auto) 4.8, Lymph # (Auto) 1.9, Mcdowell # (Auto) 0.5, Eos # (Auto) 0.0, Baso # (Auto) 0.0, Sodium 132 L, Potassium 4.5, Chloride 101, Carbon Dioxide 28, Anion Gap 7.5, BUN 25 H, Glucose 142 H D, Calcium 8.9, Magnesium 2.0, Total Bilirubin 0.5, AST 93 H D, ALT 271 H D, Alkaline Phosphatase 184 H, Total Protein 6.8, Albumin 2.9 L D, Globulin 3.9 H, Albumin/Globulin Ratio 0.7 L I & O for Labs for Last 24 Hours: Intake & Output 09/11/25 09/12/25 09/13/25 09/14/25 23:59 23:59 23:59 23:59 Intake Total 2296.000 / 2296.000 Output Total 550 / 550 Balance 1746.000 / 1746.000 Weight 163 lb 9.328 oz Meds Home Medications and Allergies Home Medications ?Medication ?Instructions ?Recorded ?Confirmed ?Type dapagliflozin propanediol 10 mg PO 30 days #30 tabs 09/08/18 09/08/18 History tablet fluoxetine 20 mg capsule PO 30 days #60 caps 09/08/18 09/08/18 History insulin glargine 100 unit/mL (3 20 unit SQ DAILY 09/08/18 09/08/18 History mL) subcutaneous pen (Lantus Solostar U-100 Insulin) lisinopril 20 mg tablet PO 30 days #30 tabs 09/08/18 09/08/18 History azithromycin 250 mg tablet 250 mg PO DIRECTED #6 tabs 02/02/22 Rx prednisone 20 mg tablet 20 mg PO BID #10 tabs 02/02/22 Rx amoxicillin 500 mg capsule 500 mg PO TID #30 caps 05/14/22 Rx vyroxcuv-[id number] 3.5 4 drp otic (ear) QID 7 days #10 mL 05/14/22 Rx mg-10,000 unit/mL-1 % ear drops,susp New Prescriptions to Start Prescriptions: Allergies Allergy/AdvReac Type Severity Reaction Status Date / Time codeine Allergy Verified 12/25/20 13:29 Sulfa (Sulfonamide Allergy Verified 12/25/20 13:29 Antibiotics) Results Laboratory Findings 09/14/25 08:16 09/14/25 08:16 Abnormal lab findings: Abnormal Labs 09/13/25 09/14/25 09/14/25 23:58 03:08 03:30 RBC 3.83 L Hgb 11.8 L Hct 36.4 L MCH MPV 10.8 H Eos % (Auto) 0.0 L Sodium 133 L BUN 30 H Creatinine 1.10 H Estimated GFR 50 L Glucose 210 H AST 151 H ALT 362 H* Alkaline Phosphatase 247 H Troponin I 0.06 H 0.28 H NT-Pro-B Natriuret Pep 190 H Albumin Globulin 4.4 H Albumin/Globulin Ratio 0.8 L Urine Protein 2+ A Ur Leukocyte Esterase 1+ A 09/14/25 08:16 RBC 3.63 L Hgb 11.4 L Hct 34.1 L MCH 31.4 H MPV 10.6 H Eos % (Auto) 0.0 L Sodium 132 L BUN 25 H Creatinine Estimated GFR Glucose 142 H D AST 93 H D ALT 271 H D Alkaline Phosphatase 184 H Troponin I NT-Pro-B Natriuret Pep Albumin 2.9 L D Globulin 3.9 H Albumin/Globulin Ratio 0.7 L Urine Protein Ur Leukocyte Esterase Assessment and Plan *Assessment and plan Plan Mr. Cox is a 60-year-old followed for history of TIA carotid artery occlusion diabetes mellitus hypertension presented to the ER with multiple episodes of near syncope and nausea and vomiting. She also complains of abdominal discomfort nausea and vomiting prior to hospital admission. CT chest upon admission no pulmonary embolism. No acute pulmonary parenchymal changes. Dependent atelectasis noted
[2025-09-14 09:29] LABS: Procalcitonin 0.062 ng/mL (0.0-2.0)
[2025-09-14 09:36] LABS: Troponin I 0.83 ng/ml (0.00-0.034)
[2025-09-14] MEDS: METOPROLOL SUCCINATE XL 25MG TABLET 25 MG PO (09:53)
[2025-09-14 10:01] LABS: Creatinine Clearance Estimated 68 mL/min (50-200); Creatinine,Serum 1.00 mg/dl (0.52-1.04); Estimated Glomerular Filt Rate 56 ml/min (>60); GFR (African American) 68 ML/MIN (>60)
[2025-09-14 10:49] LABS: POC Glucose,Bedside 131 gm/dL (70-110)
[2025-09-14] MEDS: ASPIRIN EC 81MG TABLET 81 MG PO (11:40)
--- NOTE | 2025-09-14 12:21 | HMH.PHAINT1 ---
Pharmacy Intervention Comments: MEDICATION RECONCILIATION COMPLETED ON PATIENT USING EXTERNAL FILL HISTORY FROM PHARMACY. -JOHANNA PEREZ, EDGARD
[2025-09-14] MEDS: CLOPIDOGREL 75MG TAB 75 MG PO (13:15)
--- NOTE | 2025-09-14 14:14 | EXP.CARD.CON ---
History of Present Illness History of Present Illness Consult date: 09/14/25 Consult reason: atrial fibrillation Chief complaint: N/V History of present illness: 60-year-old white female new to this facility with history of poorly controlled diabetes for greater than 1 decade and severe left intracranial atherosclerosis with occlusion of internal carotid artery followed by neurosurgery at [facility], Dr. Yun. Patient is on DAPT and statin for this. She is unaware of any underlying cardiovascular issues. Yesterday developed several episodes of severe nausea and recurrent vomiting so she presented to the emergency room. On arrival pt was found to be in new A-fib RVR with elevated troponin she was admitted on Cardizem drip overnight with Lovenox. This morning she remains in A-fib but rate is 110?130. Her nausea vomiting is significantly improved. Her troponin has continued trending up 0.06, 0.28, 0.83. 2D echo shows hyperdynamic LV and labs indicate dehydration. I advised patient she would need left heart cath and RONY with cardioversion and she initially stated she would prefer to be transferred to [facility] where her neurosurgeon practices. We called but they had no beds available for transfer. Pt states she would be fine to remain here and have the procedures if we spoke to her neurosurgeon. I called and spoke with him personally and he was fine with us proceeding with left heart cath and cardioversion and just requests that we avoid hypotension at all costs which would lead to severe hypoperfusion of her brain and trigger significant neuro symptoms. I have relayed these concerns to the patient her nurse the hospitalist and the anesthesiologist and interventional list here. [facility] Disclaimer: The information contained in this section may have been updated after the patient was seen, as this information can be updated by other users. Medical History 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 Diabetes mellitus, type 2 Anxiety Hypertension Surgical History History of abdominoplasty History of breast augmentation Social History Smoking Status: Never smoker alcohol intake: never current occupational status: other Travel in the last 8 weeks?: None household members: family housing: house Review of Systems Constitutional Constitutional: Reports fatigue and Denies weakness Eyes Eyes: Denies loss of vision ENT Ears, Nose, Mouth, and Throat: Denies hearing loss *Cardiovascular Cardiovascular: Denies chest pain and Denies dyspnea *Respiratory Respiratory: Denies cough and Denies dyspnea *Gastrointestinal Gastrointestinal: Denies change in stool character, Denies nausea and Denies vomiting *Musculoskeletal Musculoskeletal: Denies muscle weakness Integumentary/Breasts Skin/Breast: Denies changing lesions *Neurologic Neurologic: Reports as per HPI, Denies loss of vision and Denies weakness Endocrine Endocrine: Reports fatigue Exam Data for Last 24 hours Vital signs and Labs for Last 24 Hours: Temp Pulse Resp BP Pulse Ox O2 Del Method O2 Flow Rate 97.6 F 91 H 16 116/63 99 Room Air 2 09/14/25 08:01 09/14/25 13:10 09/14/25 13:10 09/14/25 13:10 09/14/25 13:10 09/14/25 13:10 09/14/25 07:01 Laboratory Results - last 24 hr 09/13/25 23:52: VBG pH 7.33, VBG pCO2 47.1, VBG pO2 33.2, VBG HCO3 24.3, VBG Total CO2 25.8, VBG O2 Saturation 58.2, VBG Base Excess -1.6, VBG Lactic Acid 1.6 09/13/25 23:58: WBC 8.3, RBC 3.83 L, Hgb 11.8 L, Hct 36.4 L, MCV 95.0, MCH 30.8, MCHC 32.4, RDW 13.6, Plt Count 255, MPV 10.8 H, Neut % (Auto) 75.5, Lymph % (Auto) 18.7, [place] % (Auto) 5.3, Eos % (Auto) 0.0 L, Baso % (Auto) 0.1, Neut # (Auto) 6.3, Lymph # (Auto) 1.6, [place] # (Auto) 0.4, Eos # (Auto) 0.0, Baso # (Auto) 0.0, Sodium 133 L, Potassium 4.7, Chloride 99, Carbon Dioxide 26, Anion Gap 12.7, BUN 30 H, Creatinine 1.10 H, Estimated Creat Clear 61, Estimated GFR 50 L, Est GFR ( Amer) 61, Glucose 210 H, Calcium 9.5, Total Bilirubin 0.9, AST 151 H, ALT 362 H*, Alkaline Phosphatase 247 H, Troponin I 0.06 H, NT-Pro-B Natriuret Pep 190 H, Total Protein 8.1, Albumin 3.7, Globulin 4.4 H, Albumin/Globulin Ratio 0.8 L, Lipase 208, Plasma/Serum Alcohol < 10 09/14/25 01:02: Chlamy pneumoniae PCR Not detected, Adenovirus (PCR) Not detected, B. pertussis DNA (PCR) Not detected, Coronavirus OC43 (PCR) Not detected, Coronavirus HKU1 (PCR) Not detected, Coronavirus 229E (PCR) Not detected, SARS-CoV-2 (PCR) Not detected, Coronavirus NL63 (PCR) Not detected, Human Metapneumovir PCR Not detected, Influenza A (H1) PCR Not detected, Influ A (H1N1/09) PCR Not detected, Influenza A (H3) PCR Not detected, Influenza Type A (PCR) Not detected, Influenza Type B (PCR) Not detected, M. pneumoniae (PCR) Not detected, Parainfluenza 1 (PCR) Not detected, Parainfluenza 2 (PCR) Not detected, Parainfluenza 3 (PCR) Not detected, Parainfluenza 4 (PCR) Not detected, RSV (PCR) Not detected, Entero/Rhino (PCR) Not detected 09/14/25 03:08: Troponin I 0.28 H 09/14/25 03:30: Urine Color Yellow, Urine Appearance Cloudy, Urine pH 5.5, Ur Specific [place] 1.015, Urine Protein 2+ A, Urine Glucose (UA) 1+, Urine Ketones Trace, Urine Blood Trace-l, Urine Nitrate Negative, Urine Bilirubin Negative, Urine Urobilinogen 0.2, Ur Leukocyte Esterase 1+ A, Urine RBC 3-5, Urine WBC 20-50, Ur Squamous Epith Cells 3-5, Urine Bacteria 3+, Urine Opiates Screen Negative, Urine Methadone Screen Negative, Ur Barbituates Screen Negative, Ur Phencyclidine Scrn Negative, Ur Amphetamines Screen Negative, U Benzodiazepines Scrn Negative, Urine Cocaine Screen Negative, U Marijuana (THC) Screen Negative 09/14/25 08:16: WBC 7.3, RBC 3.63 L, Hgb 11.4 L, Hct 34.1 L, MCV 93.9, MCH 31.4 H, MCHC 33.4, RDW 13.6, Plt Count 240, MPV 10.6 H, Neut % (Auto) 66.3, Lymph % (Auto) 25.9, [place] % (Auto) 7.4, Eos % (Auto) 0.0 L, Baso % (Auto) 0.1, Neut # (Auto) 4.8, Lymph # (Auto) 1.9, [place] # (Auto) 0.5, Eos # (Auto) 0.0, Baso # (Auto) 0.0, Sodium 132 L, Potassium 4.5, Chloride 101, Carbon Dioxide 28, Anion Gap 7.5, BUN 25 H, Creatinine 1.00, Estimated Creat Clear 68, Estimated GFR 56 L, Est GFR ( Amer) 68, Glucose 142 H D, Calcium 8.9, Magnesium 2.0, Total Bilirubin 0.5, AST 93 H D, ALT 271 H D, Alkaline Phosphatase 184 H, Troponin I 0.83 H, Total Protein 6.8, Albumin 2.9 L D, Globulin 3.9 H, Albumin/Globulin Ratio 0.7 L, Procalcitonin 0.062 09/14/25 10:38: POC Glucose 131 H I & O for Last 24 hours: Intake & Output 09/11/25 09/12/25 09/13/25 09/14/25 23:59 23:59 23:59 23:59 Intake Total 2385.250 / 2385.250 Output Total 1150 / 1150 Balance 1235.250 / 1235.250 Weight 163 lb 9.328 oz Constitutional Constitutional: no acute distress and cooperative *Routine HEENT Exam Eye: Present PERRL *Routine Respiratory Exam Respiratory: Present CTA bilaterally; Absent accessory muscle use, wheezes or crackles *Routine Cardiovascular Exam Cardiovascular: Present irregularly irregular; Absent murmur, gallop or rubs *Routine Abdominal Exam Abdominal: Present soft; Absent tenderness *Routine Extremities Exam Extremities: Present pulses intact; Absent cyanosis or edema *Routine Skin Exam Skin: Present intact; Absent erythema or wounds *Routine Neurological Exam Neurological: Present alert and oriented X3 Routine Psychiatric Exam Psychiatric: Present cooperative Meds Home Medications and Allergies Home Medications ?Medication ?Instructions ?Recorded ?Confirmed ?Type aspirin 81 mg chewable tablet 81 mg PO DAILY 09/14/25 09/14/25 History atorvastatin 80 mg tablet 80 mg PO HS 09/14/25 09/14/25 History bethanechol chloride 10 mg tablet 10 mg PO TID 09/14/25 09/14/25 History carvedilol 12.5 mg tablet 12.5 mg PO BID 09/14/25 09/14/25 History clopidogrel 75 mg tablet 75 mg PO DAILY 09/14/25 09/14/25 History dapagliflozin propanediol 5 mg 5 mg PO DAILY 09/14/25 09/14/25 History tablet diphenhydramine HCl 25 mg capsule 25 mg PO BID 09/14/25 09/14/25 History (Benadryl) ezetimibe 10 mg tablet 10 mg PO DAILY 09/14/25 09/14/25 History insulin glargine 100 unit/mL (3 20 unit SQ PM 09/14/25 09/14/25 History mL) subcutaneous pen (Basaglar KwikPen U-100 Insulin) insulin glargine 100 unit/mL (3 40 unit SQ AM 09/14/25 09/14/25 History mL) subcutaneous pen (Basaglar KwikPen U-100 Insulin) lisinopril 10 mg tablet 10 mg PO DAILY 09/14/25 09/14/25 History tamsulosin 0.4 mg capsule 0.4 mg PO DAILY 09/14/25 09/14/25 History tirzepatide 7.5 mg/0.5 mL 7.5 mg SQ WEEKLY 09/14/25 09/14/25 History subcutaneous pen injector (Minh) venlafaxine 75 mg capsule,extended 75 mg PO DAILY 09/14/25 09/14/25 History release 24 hr New Prescriptions to Start Prescriptions: Allergies Allergy/AdvReac Type Severity Reaction Status Date / Time codeine Allergy Verified 12/25/20 13:29 Sulfa (Sulfonamide Allergy Verified 12/25/20 13:29 Antibiotics) Assessment and Plan *Assessment and plan (1) Atrial fibrillation with RVR: Status: Acute Category: Medical Code(s): I48.91 - Unspecified atrial fibrillation (2) NSTEMI (non-ST elevated myocardial infarction): Status: Acute Category: Medical Code(s): I21.4 - Non-ST elevation (NSTEMI) myocardial infarction (3) Nausea & vomiting: Status: Acute Qualifiers: Vomiting type: unspecified Qualified Code(s): R11.2 - Nausea with vomiting, unspecified Category: Medical Code(s): R11.2 - Nausea with vomiting, unspecified (4) 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: Status: Acute Category: Medical Code(s): I63.232 - Cerebral infarction due to unspecified occlusion or stenosis of left carotid arteries (5) Postural dizziness with near syncope: Status: Acute Category: Medical Code(s): R42 - Dizziness and giddiness; R55 - Syncope and collapse (6) Recurrent urinary tract infection: Status: Acute Category: Medical Code(s): N39.0 - Urinary tract infection, site not specified Plan A-fib RVR - new dx this admission in setting of N/V/dehydration - continue rate control efforts with IV Cardizem - continue Lovenox - RONY/DCCV tomorrow at 10am. Pt NPO after midnight. Discussed with anesthesia that patient should avoid hypotension and that we use ketamine for sedation and have Gino-Synephrine available if needed. NSTEMI - new dx this admission with rising serial troponin, new A-fib, and N/V, chest discomfort - no ST elevation - normal Bi-V function on 2D ECHO - cont DAPT, BB, Statin - pt agreeable to [facility] tomorrow after RONY/DCCV Severe/Critical Left Intracranial carotid artery disease - nearly occluded per Neurosurgery, considering angioplasty/stenting in the future - Per Dr. Yun, Neurosurgeon at [facility] - avoid hypotension, continue DAPT, he will see her post discharge. No indication for transfer. DM-II - was poorly controlled with A1C 10-12 for a decade - now A1C <6 - consider GLP-1 later - no SGLT-2 due to recurrent UTI - glucose control per hospitalist N/V/Dehydration - symptoms improving - continue hydration - give 1L NS Prolapsed bladder with recurrent UTI - avoid SGLT-2 - defer workup to primary service
--- OUTSIDE RECORDS SUMMARY | 2025-09-14 14:22 | XMS_ITS | Continuity of Care Document ---
Author Organization [place] [facility] [place] Address [address] [place] [address] Care Team Providers Care Director Of Search Engine Optimization Name Role Phone OLGA KLEINANDA Primary Care Provider RICCI VASQUEZ Primary Care Provider Assessment Encounter Date Assessment Date Assessment LastModified by Organization Details LastModified Time 09/06/2025 09/06/2025 ASSESSMENT: - Internal carotid artery distribution occlusion, left, 100%. - Internal carotid artery distribution occlusion, right, partial. - Type 2 diabetes mellitus, A1c 6.7%. - Anxiety, managed with venlafaxine. PLAN: The patient is scheduled to follow up with the neurosurgeon tomorrow to discuss potential intervention for the right internal carotid artery occlusion. The neurosurgeon will evaluate the effectiveness of current medication management and lifestyle changes over the next 60-90 days, with potential imaging follow-up to assess progress. The patient is advised to continue her current medications, including Basaglar, Farxiga, Plavix, and baby aspirin, as prescribed. She is encouraged to maintain hydration, adhere to a healthy diet, and engage in regular physical activity to optimize blood flow and overall health. The patient is awaiting her rescheduled appointment with hybrid powertrain development engineer Katrina Dennis at [facility] to further evaluate and manage her diabetes. Her A1c goal will be discussed during this visit. The patient and her caregiver are actively monitoring her blood pressure and blood sugar levels daily, recording data to share with her healthcare providers. The patient is advised to discuss the potential interaction between venlafaxine and aspirin with the neurosurgeon during her appointment tomorrow. [email or web address] Not available 09/06/2025 12:57:05 Plan of Treatment Reminders Order Date Submit Date Provider Last Modified By Organization Details Last Modified Time Details Appointments OV EST 15 026 10:15AM Aden Doyle MD Not available Not available Not available Lab None record ed. Referral None record ed. Procedures None record ed. Surgeries None record ed. Imaging None record ed. Medication Orders None record ed. Patient TargetsNo targets recorded. Patient InstructionsNo instructions recorded. Reason for Referral None Reported. Problems Name Problem SNOMED Code Status Onset Date Resolution Date Notes Provider Name and Address Organization Details Recorded Time Uncontrolled type 2 diabetes mellitus 255684164 Active 2022 Not Available [facility] 12:22:57 Hyperlipidemi a 49688910 Active 2022 Not Available [facility] 3 12:22:57 Essential hypertension 18421708 Active 2022 Not Available [facility] 3 12:22:57 Vitamin D deficiency 38086104 Active 2022 Not Available [facility] 3 12:22:57 Problem Notes None recorded. Procedures Surgical History Date Name Laterality Status Provider Name and Address Organization Details Recorded Time 03/31/20 25 Most Recent Mammogram completed Salome Renee [place] - [facility] & [place] 08/24/2025 10:05:26 03/31/20 25 Most Recent Bone Density completed Salome Renee [place] - [facility] & [place] 08/24/2025 10:05:32 02/21/20 25 Date of Last Pap Smear completed Nikki BOLTON - [facility] [place] [facility] [place] 05/17/2025 10:56:03 07/08/20 23 Cholecystectomy completed Jacuqeline Joiner [place] - [facility] [place] [facility] [place] 03/09/2024 10:18:32 01/18/20 23 Feces-based colorectal cancer DNA screening completed Gris Edmond [place] - [facility] [place] [facility] [place] 01/30/2025 15:48:46 12/24/19 19 Feces-based colorectal cancer DNA screening completed Gris Edmond [place] - [facility] [place] [facility] [place] 01/30/2025 15:48:04 Tubal Ligation completed Jacqueline Joiner [place] - [facility] & [place] 12/31/2023 09:30:16 abdominoplasty [facility] [place] 12/31/2023 09:30:22 Breast augmentation w/implt completed Jacqueline BOLTON [facility] & [place] 06/23/2024 13:31:24 Imaging Results None recorded. Procedure Notes None recorded. Medical Equipment None Reported. Allergies Allergen ID Allergen Name Allergen Category Reaction Reaction Severity Criticality Documentation Date Start Date Code Code System Note Provider Name and Address Organization Details Recorded Time 90888 codeine medicatio n Not available Not available Not available 09/08/2022 2670 RxNorm Other react ions and sever ities : 'Drug -juana caleb nause a and vomit ing - Sever e'. Nikki gaspar [place]ell [facility] & [place] 5 10:43:02 92596 Substance with sulfonami de structure and antibacte rial mechanism of action (substanc e) medicatio n vomiting Not available Not available 09/08/2022 77517 8003 SNOMED GI Intol eranc e Gris HOANG Moore [facility] & [place] 5 15:52:52 Medications Name Sig Start Date Stop Date Status Note LastModified by Organization Details LastModified Time amoxicill in 500 mg capsule TAKE 1 CAPSULE BY MOUTH THREE TIMES DAILY 09/08 completed Not Available Not Available Not Available atorvasta tin 80 mg tablet Take 1 tablet by mouth once daily 2024 active Not Available Not Available Not Avai lable carvedilo l 25 mg tablet Take 1 tablet by mouth twice daily 09/06 completed Not Available Not Available Not Available venlafaxi ne ER 37.5 mg capsule,e xtended release 24 hr Take 1 capsule by mouth once daily 12/23 completed Not Available Not Available Not Available venlafaxi ne ER 75 mg capsule,e xtended release 24 hr TAKE 1 CAPSULE BY MOUTH ONCE DAILY active Not Available Not Available No t Available carvedilo l 12.5 mg tablet TAKE 1 TABLET BY MOUTH TWICE DAILY WITH MEALS active Not Available Not Available No t Available clindamyc in HCl 300 mg capsule TAKE 1 CAPSULE BY MOUTH EVERY 6 HOURS FOR 10 DAYS 06/08 completed Not Available Not Available Not Available trazodone 50 mg tablet TAKE 1 TABLET BY MOUTH ONCE DAILY AT NIGHT 02/27 completed Not Available Not Available Not Available azithromy woody 250 mg tablet TAKE 2 TABLETS BY MOUTH ON DAY 1, AND THEN TAKE 1 TABLET BY MOUTH ONCE A DAY ON DAY 2 THROUGH DAY 5 09/08 completed Not Available Not Available Not Available ibuprofen 800 mg tablet TAKE 1 TABLET BY MOUTH EVERY 6 HOURS NEEDED FOR MODERATE PAIN 4-6 PAIN SCALE 03/07 completed Not Available Not Available Not Available fluconazo le 150 mg tablet TAKE 1 TABLET BY MOUTH ONCE; MAY REPEAT IN 3 DAYS IF SYMPTOMS UNRESOLV ED 02/27 completed Not Available Not Available Not Available prednison e 20 mg tablet TAKE 1 TABLET BY MOUTH TWICE DAILY 09/08 completed Not Available Not Available Not Available venlafaxi ne ER 150 mg capsule,e xtended release 24 hr TAKE 1 CAPSULE BY MOUTH ONCE DAILY WITH FOOD FOR 90 DAYS 10/13 completed Not Available Not Available Not Available Plavix 75 mg tablet Take 1 tablet every day by oral route. active Not Available Not Available No t Available Macrobid 100 mg capsule Take 1 capsule twice a day by oral route for 7 days. 08/02 completed Not Available Not Available Not Available oxycodone -acetamin ophen 5 mg-325 mg tablet 07/28 completed Not Available Not Available Not Available tamsulosi n 0.4 mg capsule TAKE 1 CAPSULE BY MOUTH ONCE DAILY active Not Available Not Available No t Available trazodone 100 mg tablet TAKE 1 TABLET BY MOUTH ONCE DAILY AT NIGHT NEEDED FOR INSOMNIA 02/27 completed Not Available Not Available Not Available lisinopri l 10 mg tablet TAKE 1 TABLET BY MOUTH ONCE DAILY 09/06 completed Not Available Not Available Not Available aspirin 81 mg chewable tablet CHEW AND SWALLOW 1 TABLET BY MOUTH ONCE DAILY active Not Available Not Available No t Available mupirocin 2 % topical ointment APPLY TO SURGERY SITE TWICE DAILY WITH EVERY BANDAGE CHANGE 02/27 completed Not Available Not Available Not Available metoprolo l succinate ER 25 mg tablet,ex tended release 24 hr TAKE 1 TABLET BY MOUTH ONCE DAILY 09/08 completed Not Available Not Available Not Available levofloxa woody 750 mg tablet Take 1 tablet every day by oral route for 7 days. 07/28 completed Not Available Not Available Not Available lisinopri l 40 mg tablet TAKE 1 TABLET BY MOUTH ONCE DAILY 10/13 completed Not Available Not Available Not Available neomycin- polymyxin -hydrocor t 3.5 mg-10,000 unit/mL-1 % ear drops,kyle p INSTILL 4 DROPS 4 TIMES DAILY FOR 7 DAYS IN AFFECTED EAR(S) 09/08 completed Not Available Not Available Not Available insulin lispro (U-100) 100 unit/mL subcutane ous pen INJECT SUBCUTAN EOUSLY FOR USE AT MEALTIME S AND PER CORRECTI ONAL SCALE, MAX DAILY DOSE 50 UNITS 09/06 completed Not Available Not Available Not Available Asprin Ec Low Dose 81 mg tablet,de layed release Take 1 tablet every day by oral route. 09/06 completed Not Available Not Available Not Available ezetimibe 10 mg tablet TAKE 1 TABLET BY MOUTH ONCE DAILY 09/06 completed Not Available Not Available Not Available rosuvasta tin 40 mg tablet Take 1 tablet every day by oral route for 90 days. 12/23 completed Not Available Not Available Not Available magnesium 09/06 completed Not Available Not Available Not Available cranberry TAKE 1 15,00 MG TABLET ONCE DAILY 09/06 completed Not Available Not Available Not Available Menopause Support TAKE 2 CAPSULES ONCE DAILY 09/06 completed [facility], Black Cohosh, Vit D3, Vit B6 Not Available Not Available Not Available estradiol 10 mcg vaginal tablet INSERT 1 TABLET VAGINALL Y TWICE A WEEK 09/06 completed Not Available Not Available Not Available Farxiga 10 mg tablet TAKE 1 TABLET BY MOUTH ONCE DAILY FOR 90 DAYS 09/08 completed Not Available Not Available Not Available dapaglifl ozin propanedi ol 5 mg tablet TAKE 1 TABLET BY MOUTH ONCE DAILY active Not Available Not Available No t Available Trulicity 0.75 mg/0.5 mL subcutane ous pen injector INJECT 0.75MG SUBCUTAN EOUSLY INTO THE APPROPRI ATE AREA ONCE A WEEK DIRECTED 10/28 completed Not Available Not Available Not Available Estroven TAKE 1 TABLET BY MOUTH ONCE DAILY 06/06 completed Not Available Not Available Not Available [place] Nieves U-100 Insulin 100 unit/mL (3 mL) subcutane ous INJECT 40am and 20pm UNITS SUBCUTAN EOUSLY ONCE DAILY active Not Available Not Available No t Available FreeStyle Jovita 14 Day [place] USE DIRECTED 06/06 completed Not Available Not Available Not Available FreeStyle Jovita 14 Day Sensor kit USE DIRECTED UNDER THE SKIN 06/06 completed Not Available Not Available Not Available Mounjaro 7.5 mg/0.5 mL subcutane ous pen injector INJECT 1 SYRINGE SUBCUTAN EOUSLY ONCE A WEEK 09/06 completed Not Available Not Available Not Available Mounjaro 5 mg/0.5 mL subcutane ous pen injector INJECT 1 PEN SUBCUTAN EOUSLY ONCE A WEEK 07/19 completed Not Available Not Available Not Available Mounjaro 2.5 mg/0.5 mL subcutane ous pen injector INJECT 0.5 ML (2.5MG) SUBCUTAN EOUSLY ONCE WEEKLY 06/06 completed Not Available Not Available Not Available FreeStyle Jovita 3 Sensor device INJECT 1 SENSOR UNDER THE SKIN INTO THE APPROPRI ATE AERA DIRECTED EVERY 14 DAYS active Not Available Not Available No t Available FreeStyle Jovita 3 [place] USE TO TEST BLOOD GLUCOSE DAILY DIRECTED active Not Available Not Available No t Available Vitals Date Recorded Body height Body mass index (BMI) Body weight Body temperature Heart rate Oxygen saturation Oxygen saturation in Arterial blood by Pulse oximetry Systolic And Diastolic Provider Name and Address Organization Details Last Updated DateTime 5 172.72 cm 24.6 kg/m2 01307.6 4 g 97.7 [degF] 64 /min 98 % 98 % 110/64 mm[Hg] Kortney Olea [facility] & [place] 09:45:34 Social History Question Answer Notes LastModified by Organizat ion Details LastModified Time Tobacco Smoking Status Never Smoker Zara gaspar, HOANG DELA CRUZ [facility] & [place] 09/08/2022 09:29:20 Do You Have An Advance Directive? No [email or web address] Information not available 09/08/2022 Are You Blind Or Do You Have Difficulty Seeing? No [email or web address] Information not available 09/08/2022 What Is Your Level Of Caffeine Consumption? Occasional [email or web address] Information not available 06/12/2023 What Was The Date Of Your Most Recent Tobacco Screening? 06/06/2024 [email or web address] Information not available 06/08/2024 Are You Passively Exposed To Smoke? No [email or web address] Information not available 05/14/2023 Has Tobacco Cessation Counseling Been Provided? No [email or web address] Information not available 06/12/2023 Sex: Female Functional Status Question Answer Note LastModified by Organizat ion Details LastModified Time Do you use any illicit or recreational drugs? No [email or web address] Information not available 09/08/2022 Do you or have you ever used any other forms of tobacco or nicotine? No [email or web address] Information not available 06/12/2023 What is your level of alcohol consumption? None [email or web address] Information not available 09/08/2022 What is your exercise level? Occasional Information not available 09/08/2022 Mental Status Question Answer Note LastModified by Organization D etails LastModified Time Do you feel stressed (tense, restless, nervous, or anxious, or unable to sleep at night)? [id number] [email or web address] Information not available 09/08/2022 Family History Relationship Description Onset Age of this Age Resolved Age Notes LastModified by Organization Details LastModified Time Mother Disorder of endocrine system pt. added direct ly (09/05) [email or web address] Not available 09/05/2022 13:33:32 Mother Hypertensive disorder pt. added direct ly (09/05) [email or web address] Not available 09/05/2022 13:33:51 Mother Myocardial infarction pt. added direct ly (09/05) [email or web address] Not available 09/05/2022 13:34:31 Mother Coronary arterioscler osis [email or web address] Not available 09/06 09:18:53 Mother Diabetes mellitus [email or web address] Not available 09/06 09:18:53 Father Disorder of endocrine system pt. added direct ly (09/05) [email or web address] Not available 09/05/2022 13:33:32 Father Hypertensive disorder pt. added direct ly (09/05) [email or web address] Not available 09/05/2022 13:33:51 Father Myocardial infarction pt. added direct ly (09/05) [email or web address] Not available 09/05/2022 13:34:31 Father Coronary arterioscler osis [email or web address] Not available 09/06 09:18:53 Father Diabetes mellitus [email or web address] Not available 09/06 09:18:53 Father Arthritis [email or web address] Not availa ble 09/06/2025 09:18:53 Sister Disorder of endocrine system pt. added direct ly (09/05) [email or web address] Not available 09/05/2022 13:33:32 Sister Hypertensive disorder pt. added direct ly (09/05) [email or web address] Not available 09/05/2022 13:33:51 Paternal Grandmother Myocardial infarction pt. added direct ly (09/05) [email or web address] Not available 09/05/2022 13:34:31 Paternal Grandfather Myocardial infarction pt. added direct ly (09/05) [email or web address] Not available 09/05/2022 13:34:32 Medical History Condition Response Diabetes Y Anxiety Disorder Y Muscle, Joint, or Bone Problems N Other Y High Cholesterol Y Back Problems Y Thyroid Problems Y Hypertension Y Depression Y Gynecological History Statement/Question Response Abnormal Pap N Date of Last Colonoscopy Most Recent Bone Density 03/31/2025 Sexually Active? Y Menses Monthly N Date of Last Pap Smear 02/20/2025 Most Recent Mammogram 03/31/2025 Obstetrics History GPAL:G 0 P 0 0 0 0 Immunizations Vaccine Type Date Status Note Provider Nam e and Address Organization Details Recorded Time Influenza, split virus, quadrivalent, preservative 1 completed Sherin Irving null, [place] - [facility] [place] & [place] 07/27/2023 10:22:26 pneumococcal polysaccharide PPV23 2 completed Not Available [facility] 04/01/2023 12:22:57 Influenza, split virus, quadrivalent, PF 6 completed Not Available [facility] 04/01/2023 12:22:57 Hep B, adult 9 completed Not Available [facility] 04/01/2023 12:22:57 Hep B, adult 6 completed Not Available [facility] 04/01/2023 12:22:57 influenza, unspecified formulation 6 completed Not Available [facility] 04/01/2023 12:22:57 Tdap 6 completed Not Available [facility] 04/01/2023 12:22:57 pneumococcal polysaccharide PPV23 6 completed Not Available [facility] 04/01/2023 12:22:57 Influenza, split virus, quadrivalent, PF 0 completed Not Available [facility] 04/01/2023 12:22:57 Influenza, split virus, quadrivalent, preservative 7 completed Not Available [facility] 04/01/2023 12:22:57 Influenza, split virus, quadrivalent, PF 8 completed Not Available [facility] 04/01/2023 12:22:57 influenza, unspecified formulation 8 completed Not Available [facility] 04/01/2023 12:22:57 influenza, unspecified formulation 9 completed Not Available [facility] 04/01/2023 12:22:57 Influenza, MDCK, quadrivalent, PF 9 completed Not Available [facility] 04/01/2023 12:22:57 zoster recombinant 3 completed Zara Shaw null, [place] - [facility] [place] [facility] [place] 05/20/2023 09:03:37 Pneumococcal conjugate PCV20, polysaccharide [id number] conjugate, adjuvant, PF 3 completed Zara Shaw null, [place] - [facility] [place] [facility] [place] 05/20/2023 09:03:37 Influenza, MDCK, quadrivalent, PF 2 completed Aden Doyle MD [address] [facility], [place], [address], [place] [facility] [place] [facility] [place] 09/08/2022 12:27:58 Influenza, recombinant, trivalent, PF 4 completed Nikki gaspar, [place] [facility] [place] [facility] [place] 05/17/2025 10:43:18 Influenza, recombinant, trivalent, PF 5 completed Not Available [facility] 09/06/2025 09:19:47 zoster recombinant 5 completed Not Available [facility] 09/06/2025 09:19:47 Past Encounters Encounter ID Performer Location Encounter Start Date Encounter Closed Date Diagnosis/Indication Diagnosis SNOMED-CT Code Diagnosis ICD10 Code Diagnosis IMO Codes Diagnosis Note [id number] Ricci Vasquez MD [facility] [address] [place] [address] 09/06/2025 09:16:32 09/06/2025 10:21:50 Type 2 diabetes mellitus 92928494 E11.9 recent A1c 6.9%. Currently on Basaglar insulin 40 units in the morning and 20 units in the evening along with Farxiga 5 mg once a day Anxiety 79709908 F41.9 stable on venlafaxin e ER 75 mg daily Post-disch arge follow-up 781811284 Z09 [id number] Admitted on 08/21/2025 to [facility], discharged on 08/23/2025 , being seen in office 14 days later for transition al care on 09/06/2025 . Asymptomat ic at present. Has scheduled follow up with neurosurge on tomorrow. Reviewed notes we have from [facility] and discussed in depth her dispositio n with her and her Cerebrovas cular disease 05378367 I67.9 61404 currently on 81 mg aspirin daily along with Plavix 75 mg daily and atorvastat in 80 mg daily Essential hypertension 21368243 I10 BP is 110/64. On carvedilol 12.5 b.i.d. Health Concerns Section Related Observation LastModified by Organization Detai ls LastModified Time None Recorded Concern Status LastModified by Organization Details LastModified Time None Recorded Payers Encounter Date Sequence Insurance Name Policy Number Policy Lester Covered Member ID Lester Member ID Guarantor Name 09/06/2025 1 BRIAN Moncada (O) KRISTINE Swanhugo Cox [id number] Brynn Efra Brooke Notes Date Note Type Note Provider Name and Address Organization Details Recorded Time 09/06/2025 text/html Brynn Cox is a 60-year-old female who presents for a hospital follow-up. She was recently hospitalized at [facility] and subsequently transferred to another facility. During her hospitalization, she was evaluated for internal carotid artery occlusion. She has a 100% occlusion in the left internal carotid artery and partial occlusion in the right internal carotid artery. Blood flow in the carotid arteries in the neck was confirmed to be normal by the vascular surgeon. The occlusion in the left internal carotid artery is located in the brain, not the neck. She is currently under the care of a neurosurgeon, with a follow-up appointment scheduled for tomorrow to discuss potential intervention for the right internal carotid artery occlusion. The patient has a history of type 2 diabetes mellitus, currently managed with Basaglar and Farxiga. Her most recent A1c was 6.7%. She is also on Plavix and baby aspirin for stroke prevention. She has a history of dehydration, which contributed to her cerebrovascular event. Lifestyle changes, including improved hydration, nutrition, and exercise, have been implemented. She is awaiting an appointment with her hybrid powertrain development engineer, Katrina Dennis, at [facility], which was rescheduled due to her hospitalization. The patient has been on venlafaxine for anxiety for many years and is exploring the impact of nutrition and supplementation on her mental health. She is also seeing a urologist for additional concerns. Ricci Vasquez MD [address], [place], [address], [facility] [place] & [place] 09/06/2025 13:05:16 OBGyn Episode No OBEpisode recorded.
--- OUTSIDE RECORDS SUMMARY | 2025-09-14 14:22 | XMS_ITS | Continuity of Care Document ---
Author Organization ID - [facility] Address [address] [place] [address] Care Team Providers Care Chief Librarian Branch Name Role Phone ADEN KLEIN Primary Care Provider ALBERT TENA Primary Care Provider [phone] Assessment Encounter Date Assessment Date Assessment LastModified by Organization Details LastModified Time 08/02/2025 08/02/2025 ASSESSMENT: - Complete blockage of the left carotid artery. - Partial blockage of the right carotid artery. 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 - Constipation, likely medication-induced . - History of diabetes with stable blood sugar levels. - Diabetic retinopathy. PLAN: Continue Plavix (clopidogrel) to prevent further progression of carotid artery disease. Patients on Plavix should seek medical evaluation after any fall or accident, even if no injuries are apparent, due to the risk of complications associated with the medication. Maintain dietary changes, including elimination of sugar, to support stable blood glucose levels. Monitor blood sugar levels closely and adjust medications as needed. Endocrinology appointment scheduled for 08/22 to evaluate potential changes in medication regimen. Neurology appointment scheduled for 08/25 to assess brain damage and discuss further management. For constipation, use magnesium glycinate, psyllium fiber supplements, or Miralax as needed. Avoid daily use of Miralax but utilize it during episodes of bloating or slowed bowel movements. Engage in light physical activity, such as walking at a leisurely pace and stretching, while avoiding strenuous activities that may cause sweating or strain. Continue regular visits to the eye doctor for diabetic retinopathy management and inform the manager game of carotid artery findings to monitor for any changes. 48 minutes spent in the care fo this patient. [email or web address] Not available 08/02/2025 12:55:06 Plan of Treatment Reminders Order Date Submit [...] instructions recorded. Reason for Referral None Reported. Results Created Date Observation Date Name Description Value Unit Range Abnormal Flag Note LastModifiedBy Organization Detail LastModifiedTime 07/19/2007/20/2025 VAGIN ITIS atopobium vaginae 0 ppm 16.961 - 24.669 normal Not Detec ashley Not Available [facility] [address], [place], [address], 07/20/2025 11:23:48 07/19/2007/20/2025 VAGIN ITIS bvab 2,3 (bacterial vaginosis associated bacteria 2, 3); mobiluncus spp 0 ppm 16.961 - 24.669 normal Not Detec ashley Not Available [facility] [address], [place], [address], 07/20/2025 11:23:48 07/19/20 25 07/20/2025 VAGIN ITIS noe albicans, parapsilosis , tropicalis 0 ppm 16.961 - 33.829 normal Not Detec ashley Not Available [facility] [address], [place], [address], 07/20/2025 11:23:48 07/19/20 25 07/20/2025 VAGIN ITIS noe glabrata (nakaseomyce s glabratus) 0 ppm 23.000 - 31.573 normal Not Detec ashley Not Available [facility] [address], [place], [address], 07/20/2025 11:23:48 07/19/20 25 07/20/2025 VAGIN ITIS noe krusei (pichia kudriavzevii ) 0 ppm 23.000 - 31.327 normal Not Detec ashley Not Available [facility] [address], [place], [address], 07/20/2025 11:23:48 07/19/20 25 07/20/2025 VAGIN ITIS chlamydia trachomatis 0 ppm 23.000 - 30.991 normal Not Detec ashley Not Available [facility] [address], [place], [address], 07/20/2025 11:23:48 07/19/20 25 07/20/2025 VAGIN ITIS gardnerella vaginalis 0 ppm 16.961 - 24.669 normal Not Detec ashley Not Available [facility] [address], [place], [address], 07/20/2025 11:23:48 07/19/20 25 07/20/2025 VAGIN ITIS megasphaera (types 1, 2) 0 ppm 16.961 - 24.669 normal Not Detec ashley Not Available [facility] [address], [place], [address], 07/20/2025 11:23:48 07/19/20 25 07/20/2025 VAGIN ITIS neisseria gonorrhoeae 0 ppm 23.000 - 32.123 normal Not Detec ashley Not Available [facility] [address], [place], [address], 07/20/2025 11:23:48 07/19/20 25 07/20/2025 VAGIN ITIS trichomonas vaginalis 0 ppm 23.000 - 31.944 normal Not Detec ashley Not Available [facility] [address], [place], [address], 07/20/2025 11:23:48 07/19/20 25 2025 URINE CULTU RE, ROUTI NE urine culture, routine FINAL REPORT abnormal Not Available [facility] ([facility]) [address], [place], [address], 07/22/2025 03:36:04 07/19/2007/21/2025 URINE CULTU RE, ROUTI NE result 1 ESCHER ICHIA COLI abnormal Cefaz gini with an HEMANT <=16 predi cts susce ptibi lity to the oral agent s cefac simone, cefdi dyan, cefpo doxim e, cefpr ozil, cefur oxime , cepha lexin , and lorac arbef when used for thera py of uncom plica ashley urina ry tract infec tions due to E. coli, Klebs iella pneum oniae , and Prote us mirab ilis. Great er than 100,0 00 colon y formi ng units per mL Not Available [facility] ([facility]) [address], [place], [address], 07/22/2025 03:36:04 07/19/20 25 2025 URINE CULTU RE, ROUTI NE antimicrobia l susceptibili ty COMMEN T S = Susce ptibl e; I = Inter media te; R = Resis tant P = Posit marcello; N = Negat marcello MICS are expre ssed in micro grams per mL Antib iotic RSLT# 1 RSLT# 2 RSLT# 3 RSLT# 4 Amoxi cilli n/Cla vulan ic Acid S Ampic illin S Cefaz gini S Cefep maria S Cefox itin S Cefpo doxim e S Ceftr iaxon e S Cipro floxa woody S Ertap enem S Genta micin S Levof loxac in S Merop enem S Nitro furan toin S Piper acill in/Ta zobac albrecht S Tetra cycli ne S Tobra mycin S Trime thopr im/Olivier lfa S Not Available [facility] ([facility]) [address], [place], [address], 07/22/2025 03:36:04 07/19/20 25 07/19/2025 urina lysis , dipst ick Leukocytes (reference range) small Not Available [facility] [address], [place], [address], 07/19/2025 10:32:50 07/19/20 25 07/19/2025 urina lysis , dipst ick Nitrite (reference range:) positi ve Not Available [facility] [address], [place], [address], 07/19/2025 10:32:50 07/19/20 25 07/19/2025 urina lysis , dipst ick Urobilinogen (reference range) 0.2 Not Available [facility] [address], [place], [address], 07/19/2025 10:32:50 07/19/20 25 07/19/2025 urina lysis , dipst ick Protein (reference range) 300 Not Available [facility] [address], [place], [address], 07/19/2025 10:32:50 07/19/20 25 07/19/2025 urina lysis , dipst ick pH (reference range 5-8.5) 5.5 Not Available [facility] [address], [place], [address], 07/19/2025 10:32:50 07/19/20 25 07/19/2025 urina lysis , dipst ick Blood (reference range:) large Not Available [facility] [address], [place], [address], 07/19/2025 10:32:50 07/19/20 25 07/19/2025 urina lysis , dipst ick Specific [place] (reference range) 1.025 Not Available [facility] [address], [place], [address], 07/19/2025 10:32:50 07/19/20 25 07/19/2025 urina lysis , dipst ick Ketone (reference range) trace Not Available [facility] [address], [place], [address], 07/19/2025 10:32:50 07/19/20 25 07/19/2025 urina lysis , dipst ick Bilirubin (reference range) negati ve Not Available [facility] [address], [place], [address], 07/19/2025 10:32:50 07/19/20 25 07/19/2025 urina lysis , dipst ick Glucose (reference range) 1000 Not Available [facility] [address], [place], [address], 07/19/2025 10:32:50 07/19/20 25 07/19/2025 urina lysis , dipst ick Color (reference range: yellow-brown ) Dark Yellow Not Available [facility] [address] [facility] [address], [place], [address], 07/19/2025 10:32:50 Result Notes None recorded. Problems Name Problem SNOMED Code Status Onset Date Resolution Date Notes Provider Name and Address Organization Details Recorded Time Uncontrolled type 2 diabetes mellitus 103874796 Active 2022 Not Available [facility] 3 12:22:57 Hyperlipidemi a 66769222 Active 2022 Not Available [facility] 3 12:22:57 Essential hypertension 07406250 Active 2022 Not Available [facility] 3 12:22:57 Vitamin D deficiency 60500446 Active 2022 Not Available [facility] 3 12:22:57 Problem Notes None recorded. Procedures Surgical History Date Name Laterality Status Provider Name and Address Organization Details Recorded Time 03/31/20 25 Most Recent Mammogram completed Salome BOLTON - [facility] & [place] 08/24/2025 10:05:26 03/31/20 25 Most Recent Bone Density completed Salome BOLTON - [facility] & [place] 08/24/2025 10:05:32 02/21/20 25 Date of Last Pap Smear completed Nikki BOLTON - [facility] & [place] 05/17/2025 10:56:03 07/08/20 23 Cholecystectomy completed Jacqueline BOLTON - [facility] & [place] 03/09/2024 10:18:32 01/18/20 23 Feces-based colorectal cancer DNA screening completed Gris BOLTON - [facility] & [place] 01/30/2025 15:48:46 12/24/19 19 Feces-based colorectal cancer DNA screening completed Gris BOLTON - [facility] & [place] 01/30/2025 15:48:04 Tubal Ligation completed Jacqueline BOLTON - [facility] & [place] 12/31/2023 09:30:16 abdominoplasty completed Jacqueline BOLTON - [facility] [place] 12/31/2023 09:30:22 Breast augmentation w/implt completed Jacqueline BOLTON - [facility] & [place] 06/23/2024 13:31:24 Imaging Results None recorded. Procedure Notes None recorded. Medical Equipment None Reported. Allergies Allergen ID Allergen Name Allergen Category Reaction Reaction Severity Criticality Documentation Date Start Date Code Code System Note Provider Name and Address Organization Details Recorded Time 46000 codeine medicatio n Not available Not available Not available 09/08/2022 2670 RxNorm Other react ions and sever ities : 'Drug -juana caleb nause a and vomit ing - Sever e'. Nikki Caro null, [place] - [facility] - [place] & [place] 5 10:43:02 39228 Substance with sulfonami de structure and antibacte rial mechanism of action (substanc e) medicatio n vomiting Not available Not available 09/08/2022 21625 8003 SNOMED GI Intol eranc e Gris Rothamer [facility], [place] - [place] - [place] & [place] 15:52:52 Medications Name Sig Start Date Stop [...] DAILY 09/06 [facility], Black Cohosh, Vit D3, Vit B6 [...] No t Available FreeStyle Jovita 14 Day Basalt USE DIRECTED 06/06 completed Not Available Not [...] Available No t Available FreeStyle Jovita 3 Basalt USE TO TEST BLOOD GLUCOSE DAILY DIRECTED active Not Available Not Available No t Available Vitals Date Recorded Body height Body mass index (BMI) Body weight Body temperature Oxygen saturation Oxygen saturation in Arterial blood by Pulse oximetry Heart rate Systolic And Diastolic Provider Name and Address Organization Details Last Updated DateTime 5 172.72 cm 24.5 kg/m2 45629.3 7 g 97.8 [degF] 100 % 100 % 104 /min 128/84 mm[Hg] Nikki Caro [facility] [place] 5 10:13:28 Social History Question Answer Notes LastModified by Organizat ion Details LastModified Time Tobacco Smoking Status Never Smoker Zara Shaw [facility] & [place] 09/08/2022 09:29:20 Do You Have An Advance Directive? No Information not available 09/08/2022 Are You Blind Or Do You Have Difficulty Seeing? No [email or web address] Information not available 09/08/2022 What Is Your Level Of Caffeine Consumption? Occasional [email or web address] Information not available 06/12/2023 What Was The Date Of Your Most Recent Tobacco Screening? 06/06/2024 Information not available 06/08/2024 Are You Passively Exposed To Smoke? No [email or web address] Information not available 05/14/2023 Has Tobacco Cessation Counseling Been Provided? No Information not available 06/12/2023 Sex: Female Functional Status Question Answer Note LastModified by Organizat ion Details LastModified Time Do you use any illicit or recreational drugs? No [email or web address] Information not available 09/08/2022 Do you or have you ever used any other forms of tobacco or nicotine? No Information not available 06/12/2023 What is your level of alcohol consumption? None [email or web address] Information not available 09/08/2022 What is your exercise level? Occasional [email or web address] Information not available 09/08/2022 Mental Status Question Answer Note LastModified by Organization D etails LastModified Time Do you feel stressed (tense, restless, nervous, or anxious, or unable to sleep at night)? [id number] [email or web address] Information not available 09/08/2022 Family History Relationship [...] available 09/05/2022 13:34:32 Medical History Condition Response Anxiety Disorder Y Diabetes Y Muscle, Joint, or Bone Problems N [...] virus, quadrivalent, preservative 1 completed Sherin Irving [facility], [place] - [facility] - [place] & [place] 07/27/2023 10:22:26 pneumococcal polysaccharide PPV23 2 completed Not Available [facility] 04/01/2023 12:22:57 Influenza, split virus, quadrivalent, PF 6 completed Not Available [facility] 04/01/2023 12:22:57 Hep B, adult 9 completed Not Available [facility] 04/01/2023 12:22:57 Hep B, adult 6 completed Not Available [facility] 04/01/2023 12:22:57 influenza, unspecified formulation 6 completed Not Available [facility] 04/01/2023 12:22:57 Tdap 6 completed Not Available [facility] 04/01/2023 12:22:57 pneumococcal polysaccharide PPV23 6 completed Not Available [facility] 04/01/2023 12:22:57 Influenza, split virus, quadrivalent, PF 0 completed Not Available [facility] 04/01/2023 12:22:57 Influenza, split virus, quadrivalent, preservative 7 completed Not Available [facility] 04/01/2023 12:22:57 Influenza, split virus, quadrivalent, PF 8 completed Not Available [facility] 04/01/2023 12:22:57 influenza, unspecified formulation 8 completed Not Available [facility] 04/01/2023 12:22:57 influenza, unspecified formulation 9 completed Not Available [facility] 04/01/2023 12:22:57 Influenza, MDCK, quadrivalent, PF 9 completed Not Available [facility] 04/01/2023 12:22:57 zoster recombinant 3 completed Zara Shaw null, [place] - [facility] - [place] & [place] 05/20/2023 09:03:37 Pneumococcal conjugate PCV20, polysaccharide [id number] conjugate, adjuvant, PF 3 completed Zara Shaw null, [place] - [facility] - [place] & [place] 05/20/2023 09:03:37 Influenza, MDCK, quadrivalent, PF 2 completed Aden oDyle MD [address] [place] [address], [place], [address], [place] - [facility] - [place] & [place] 09/08/2022 12:27:58 Influenza, recombinant, trivalent, PF 4 completed Nikki Caro null, [place] - [facility] - [place] & [place] 05/17/2025 10:43:18 Influenza, recombinant, trivalent, PF 5 completed Not Available [facility] 09/06/2025 09:19:47 zoster recombinant 5 completed Not Available [facility] 09/06/2025 09:19:47 Past Encounters Encounter ID Performer Location Encounter Start Date Encounter Closed Date Diagnosis/Indication Diagnosis SNOMED-CT Code Diagnosis ICD10 Code Diagnosis IMO Codes Diagnosis Note [id number] Aden Doyle MD [facility] [address] [place] [address] 07/19/2025 09:46:32 07/19/2025 10:56:39 Recurrent urinary tract infection 715579976 N39.0 086518 Pruritus of vulva 461429 00 L29.2 222317 Type 2 marilin betes mellitus 79110617 E11.9 Z79.4 [id number] pt follows endo, next appt in April, she would like to have labs done here [id number] Aden Doyle MD [facility] [address] [place] [address] 08/02/2025 10:05:09 08/02/2025 10:58:44 Vasovagal syncope 466877349 R55 205517 Bilateral stenosis of carotid arteries 023473873 I65.23 550484 Retinopath y due to type 2 diabetes mellitus 192953603 E11.319 Z79.4 56953470 pt follows endo, next appt in April, she would like to have labs done here Acute constipation 9006 K59.00 [id number] Health Concerns Section Related Observation LastModified by Organization Detai ls LastModified Time None Recorded Concern Status LastModified by Organization Details LastModified Time None Recorded Payers Encounter Date Sequence Insurance Name Policy Number Policy Lester Covered Member ID Lester Member ID Guarantor Name 08/02/2025 1 [facility] ([facility]) KRISTINE Cox [id number] Brynn Cox Notes Date Note Type Note Provider Name and Address Organization Details Recorded Time 08/02/2025 text/html Brynn Cox is a 60-year-old female who presents for a follow-up visit. 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 She describes sudden onset of abdominal cramping and inability to have a bowel movement, followed by profuse sweating. She attempted to descend stairs to ensure the safety of the child she was watching but passed out, falling approximately 12 steps. She recalls her feet becoming entangled in a baby gate during the fall. After regaining consciousness, she attempted to stand multiple times but was unable to do so. She crawled back up the stairs and eventually unlocked the door for her son, who had arrived home early. She passed out again shortly thereafter. Her [id number], a nurse, assessed her via FaceTime and called emergency services. Upon arrival at the hospital, she experienced a large bowel movement and felt significantly better afterward. Hospital evaluation ruled out stroke but revealed complete blockage of the left carotid artery and partial blockage of the right carotid artery. Collateral vessels on the left side were also noted to be blocked per spouse. She was informed of cerebral changes to insufficient blood flow and oxygen over time. She has a history of vision changes and is currently receiving injections for diabetic retinopathy. She reports that her blood sugar levels were normal during hospitalization. She has recently made significant dietary changes, including eliminating sugar, which has resulted in stable blood glucose levels. She has an upcoming endocrinology appointment on 08/22 and a neurology appointment on 08/25. She is currently taking Plavix (clopidogrel) that was started during her hospitalization. She also reports constipation, which she attributes to her medication regimen, including Mounjaro. She has been advised to use magnesium glycinate, psyllium fiber supplements, or Miralax as needed. She denies any urinary symptoms and states that her urinary issues have resolved. Aden Doyle MD [address], [place], [address], [facility] - [place] & [place] 08/02/2025 12:55:17 OBGyn Episode No OBEpisode recorded.
--- OUTSIDE RECORDS SUMMARY | 2025-09-14 14:22 | XMS_ITS | Continuity of Care Document ---
Author Organization [place] - [place] [facility]ly [facility] Address [address] [place] [address] Care Team Providers Care Steamblaster Name Role Phone ADEN KLEIN Primary Care Provider ALBERT TENA Primary Care Provider Assessment Encounter Date Assessment Date Assessment LastModified by Organization Details LastModified Time 07/19/2025 07/19/2025 ASSESSMENT: - Possible urinary tract infection, associated with Farxiga use. - History of diabetes, contributing to proteinuria and elevated glucose in urine. - Allergies to SULFA DRUGS and CODEINE. PLAN: The patient will be started on nitrofurantoin (Macrobid) for the treatment of the suspected UTI while awaiting urine culture results. Due to the patient's history of recurrent yeast infections, a vaginal swab will be performed to identify the species of yeast and determine sensitivity or resistance. A referral to a [facility] urologist will be initiated to reestablish care with a specialist, as it has been several years since the patient last saw urology. The patient will also be advised to contact Dr. Garrett, her educational administration teacher, to discuss the impact of Farxiga on her urinary symptoms and explore alternative diabetes management options. Patient education will include recommendations to wear only cotton underwear, avoid irritants such as certain detergents, soaps, and loofahs, and increase water intake. The provider suggested switching from Propel to [place] or Liquid I.V., and use stevia as a sweetener, to reduce bladder inflammation and improve hydration. [email or web address] Not available 07/19/2025 11:47:12 Plan of Treatment Reminders Order Date Submit Date Provider Last Modified By Organization Details Last Modified Time Details Appointments OV EST 15 2025 10:15A M Aden Doyle MD Not available Not available Not available Lab urinalys is, dipstick 2024 025 kenia [facility], [address], [place], [address], 07/19/2025 10:54:56 culture, urine 2024 025 MEAD [facility] ([place]), [address], [place], [address], 07/22/2025 03:36:04 Referral urologis t referral [address] [facility], [address], [place], [address], 08/17/2025 14:07:06 Procedures None recorded . Surgeries None recorded . Imaging None recorded . Medication Orders Macrobid 100 mg capsule 2024 025 [facility], [address], [address], 08/02/2025 05:02:08 Patient TargetsNo targets recorded. Patient InstructionsNo instructions recorded. Reason for Referral Urologist Referral for Recur rent urinary tract infection Referring Physician: Aden Doyle, Family Medicine, Encounter Date: 07/19/2025 Results Created Date Observation Date Name Description Value Unit Range Abnormal Flag Note LastModifiedBy Organization Detail LastModifiedTime 07/19/2007/20/2025 VAGIN ITIS atopobium vaginae 0 ppm 16.961 - 24.669 normal Not Detec ashley Not Available [facility] [address], [place], [address], 07/20/2025 11:23:48 07/19/2007/20/2025 VAGIN ITIS bvab 2,3 (bacterial vaginosis associated bacteria 2, 3); mobiluncus spp 0 ppm 16.961 - 24.669 normal Not Detec ashley Not Available [facility] [address], [place], [address], 07/20/2025 11:23:48 07/19/20 25 07/20/2025 VAGIN ITIS noe albicans, parapsilosis , tropicalis 0 ppm 16.961 - 33.829 normal Not Detec ashley Not Available [facility] [address], [place], [address], 07/20/2025 11:23:48 07/19/20 25 07/20/2025 VAGIN ITIS noe glabrata (nakaseomyce s glabratus) 0 ppm 23.000 - 31.573 normal Not Detec ashley Not Available [facility] [address], [place], [address], 07/20/2025 11:23:48 07/19/20 25 07/20/2025 VAGIN ITIS noe krusei (pichia kudriavzevii ) 0 ppm 23.000 - 31.327 normal Not Detec ashley Not Available [facility] [address], [place], [address], 07/20/2025 11:23:48 07/19/20 25 07/20/2025 VAGIN ITIS chlamydia trachomatis 0 ppm 23.000 - 30.991 normal Not Detec ashley Not Available [facility] [address], [place], [address], 07/20/2025 11:23:48 07/19/20 25 07/20/2025 VAGIN ITIS gardnerella vaginalis 0 ppm 16.961 - 24.669 normal Not Detec ashley Not Available [facility] [address], [place], [address], 07/20/2025 11:23:48 07/19/20 25 07/20/2025 VAGIN ITIS megasphaera (types 1, 2) 0 ppm 16.961 - 24.669 normal Not Detec ashley Not Available [facility] [address], [place], [address], 07/20/2025 11:23:48 07/19/20 25 07/20/2025 VAGIN ITIS neisseria gonorrhoeae 0 ppm 23.000 - 32.123 normal Not Detec ashley Not Available [facility] [address], [place], [address], 07/20/2025 11:23:48 07/19/20 25 07/20/2025 VAGIN ITIS trichomonas vaginalis 0 ppm 23.000 - 31.944 normal Not Detec ashley Not Available [facility] [address], [place], [address], 07/20/2025 11:23:48 07/19/20 25 2025 URINE CULTU RE, ROUTI NE urine culture, routine FINAL REPORT abnormal Not Available [facility] ([facility]) [address] [facility], [place], [address], 07/22/2025 03:36:04 07/19/2007/21/2025 URINE CULTU RE, ROUTI [...] ng units per mL Not Available [facility] ([facility]) [address] [facility], [place], [address], 07/22/2025 03:36:04 07/19/20 2025 URINE CULTU RE, ROUTI NE antimicrobia [...] thopr im/Olivier lfa S Not Available [facility] ([facility]) [address] [facility], [place], [address], 07/22/2025 03:36:04 07/19/2007/19/2025 urina lysis , dipst ick Leukocytes (reference range) small Not Available [address], [place], [address], 07/19/2025 10:32:50 07/19/20 25 07/19/2025 urina lysis , dipst ick Nitrite (reference range:) positi ve Not Available [address], [place], [address], 07/19/2025 10:32:50 07/19/20 25 07/19/2025 urina lysis , dipst ick Urobilinogen (reference range) 0.2 Not Available [address], [place], [address], 07/19/2025 10:32:50 07/19/20 25 07/19/2025 urina lysis , dipst ick Protein (reference range) 300 Not Available [facility] [address], [place], [address], 07/19/2025 10:32:50 07/19/20 25 07/19/2025 urina lysis , dipst ick pH (reference range 5-8.5) 5.5 Not Available [facility] [address], [place], [address], 07/19/2025 10:32:50 07/19/20 25 07/19/2025 urina lysis , dipst ick Blood (reference range:) large Not Available [facility] [address], [place], [address], 07/19/2025 10:32:50 07/19/20 25 07/19/2025 urina lysis , dipst ick Specific Bee (reference range) 1.025 Not Available [facility] [address] [facility] [address], [place], [address], 07/19/2025 10:32:50 07/19/20 25 07/19/2025 urina lysis , dipst ick Ketone (reference range) trace Not Available [facility] [address] [facility] [address], [place], [address], 07/19/2025 10:32:50 07/19/20 25 07/19/2025 urina lysis , dipst ick Bilirubin (reference range) negati ve Not Available [facility] [address] [facility] [address], [place], [address], 07/19/2025 10:32:50 07/19/20 25 07/19/2025 urina lysis , dipst ick Glucose (reference range) 1000 Not Available [facility] [address], [place], [address], 07/19/2025 10:32:50 07/19/20 25 07/19/2025 urina lysis , dipst ick Color (reference range: yellow-brown ) Dark Yellow Not Available [facility] [address], [place], [address], 07/19/2025 10:32:50 Result Notes None recorded. Problems Name Problem SNOMED Code Status Onset Date Resolution Date Notes Provider Name and Address Organization Details Recorded Time Uncontrolled type 2 diabetes mellitus 782391194 Active 2022 Not Available [facility] 12:22:57 Hyperlipidemi a 56637100 Active 2022 Not Available [facility] 12:22:57 Essential hypertension 66483055 Active 2022 Not Available [facility] 12:22:57 Vitamin D deficiency 34453487 Active 2022 Not Available [facility] 12:22:57 Problem Notes None recorded. Procedures Surgical History Date Name Laterality Status Provider Name and Address Organization Details Recorded Time 03/31/20 25 Most Recent Mammogram completed Salome [place] [facility] [place] [facility] [place] 08/24/2025 10:05:26 03/31/20 25 Most Recent Bone Density completed Salome Renee [place] [facility] [place] 08/24/2025 10:05:32 02/21/20 25 Date of Last Pap Smear completed Nikki BOLTON - [facility] [place] 05/17/2025 10:56:03 07/08/20 23 Cholecystectomy completed Jacqueline [place]OL[place] - [facility] [place] 03/09/2024 10:18:32 01/18/20 23 Feces-based colorectal cancer DNA screening completed Gris Edmond [place] - [facility] [place] 01/30/2025 15:48:46 12/24/19 19 Feces-based colorectal cancer DNA screening completed Gris Edmond [place] - [facility] [place] 01/30/2025 15:48:04 Tubal Ligation completed Jacqueline Whyte [facility] & [place] 12/31/2023 09:30:16 abdominoplasty completed Jacqueline Whyte [facility] & [place] 12/31/2023 09:30:22 Breast augmentation w/implt completed Jacqueline BOLTON [facility] & [place] 06/23/2024 13:31:24 Imaging Results None recorded. Procedure Notes None recorded. Medical Equipment None Reported. Allergies Allergen ID Allergen Name Allergen Category Reaction Reaction Severity Criticality Documentation Date Start Date Code Code System Note Provider Name and Address Organization Details Recorded Time 81534 codeine medicatio n Not available Not available Not available 09/08/2022 2670 RxNorm Other react ions and sever ities : 'Drug -juana caleb nause a and vomit ing - Sever e'. Nikki gaspar [facility] [place] 5 10:43:02 85340 Substance with sulfonami de structure and antibacte rial mechanism of action (substanc e) medicatio n vomiting Not available Not available 09/08/2022 05129 8003 SNOMED GI Intol eranc e Gris HOANG Moore [facility] [place] 5 15:52:52 Medications Name Sig Start [...] TAKE 2 CAPSULES ONCE DAILY 09/06 completed Tomy williamson [facility], Black Cohosh, Vit D3, Vit B6 Not [...] APPROPRI ATE AREA ONCE A WEEK DIRECTED 12/13 /2022 completed Not Available Not Available Not Available Estroven TAKE 1 TABLET BY MOUTH ONCE DAILY 06/06 completed Not Available Not Available Not Available Goergia Nieves U-100 Insulin 100 unit/mL (3 mL) subcutane ous INJECT 40am and 20pm UNITS SUBCUTAN EOUSLY ONCE DAILY active Not Available Not Available No t Available FreeStyle Jovita 14 Day Proctor USE DIRECTED 06/06 completed Not Available Not [...] Available No t Available FreeStyle Jovita 3 Proctor USE TO TEST BLOOD GLUCOSE DAILY DIRECTED active Not Available Not Available No t Available Vitals Date Recorded Body height Body mass index (BMI) Body weight Body temperature Oxygen saturation Oxygen saturation in Arterial blood by Pulse oximetry Heart rate Systolic And Diastolic Provider Name and Address Organization Details Last Updated DateTime 5 172.72 cm 25.1 kg/m2 62706.7 4 g 98.4 [degF] 96 % 96 % 97 /min 124/72 mm[Hg] Nikki Caro [facility] [place] 10:22:51 Social History Question Answer Notes LastModified by Organizat ion Details LastModified Time Tobacco Smoking Status Never Smoker HOANG Marquez [facility] & [place] 09/08/2022 09:29:20 Do You Have An Advance Directive? No [email or web address] Information not available 09/08/2022 Are You Blind Or Do You Have Difficulty Seeing? No [email or web address] Information not available 09/08/2022 What Is Your Level Of Caffeine Consumption? Occasional [email or web address] Information not available 06/12/2023 What Was The Date Of Your Most Recent Tobacco Screening? 06/06/2024 [email or web address] Information not available 06/08/2024 Are You Passively Exposed To Smoke? No [email or web address] Information not available 05/14/2023 Has Tobacco Cessation Counseling Been Provided? No Information not available 06/12/2023 Sex: Female Functional Status Question Answer Note LastModified by Organizat ion Details LastModified Time Do you use any illicit or recreational drugs? No [email or web address] Information not available 09/08/2022 Do you or have you ever used any other forms of tobacco or nicotine? No [email or web address] Information not available 06/12/2023 What is your level of alcohol consumption? None [email or web address] Information not available 09/08/2022 What is your exercise level? Occasional [email or web address] Information not available 09/08/2022 Mental Status Question Answer Note LastModified by Organization D etails LastModified Time Do you feel stressed (tense, restless, nervous, or anxious, or unable to sleep at night)? [id number] [email or web address] Information not available 09/08/2022 Family History Relationship [...] split virus, quadrivalent, preservative 1 completed Sherin gaspar[place] [facility] [place] 07/27/2023 10:22:26 pneumococcal polysaccharide PPV23 2 completed Not Available [facility] 04/01/2023 12:22:57 Influenza, split virus, quadrivalent, PF 6 completed Not Available [facility] 04/01/2023 12:22:57 Hep B, adult 9 completed Not Available [facility] 04/01/2023 12:22:57 Hep B, adult 6 completed Not Available [facility] 04/01/2023 12:22:57 influenza, unspecified formulation 6 completed Not Available [facility] 04/01/2023 12:22:57 Tdap 6 completed Not Available [facility] 04/01/2023 12:22:57 pneumococcal polysaccharide PPV23 6 completed Not Available [facility] 04/01/2023 12:22:57 Influenza, split virus, quadrivalent, PF 0 completed Not Available [facility] 04/01/2023 12:22:57 Influenza, split virus, quadrivalent, preservative 7 completed Not Available [facility] 04/01/2023 12:22:57 Influenza, split virus, quadrivalent, PF 8 completed Not Available [facility] 04/01/2023 12:22:57 influenza, unspecified formulation 8 completed Not Available [facility] 04/01/2023 12:22:57 influenza, unspecified formulation 9 completed Not Available [facility] 04/01/2023 12:22:57 Influenza, MDCK, quadrivalent, PF 9 completed Not Available [facility] 04/01/2023 12:22:57 zoster recombinant 3 completed Zara gaspar, [place] [facility] [place] 05/20/2023 09:03:37 Pneumococcal conjugate PCV20, polysaccharide [id number] conjugate, adjuvant, PF 3 completed Zara gaspar, [place] [facility] [place] 05/20/2023 09:03:37 Influenza, MDCK, quadrivalent, PF 2 completed Aden Doyle MD [address] [facility], [place], [address], [place] [facility] [place] 09/08/2022 12:27:58 Influenza, recombinant, trivalent, PF 4 completed Nikki gaspar, [place] [facility] [place] 05/17/2025 10:43:18 Influenza, recombinant, trivalent, PF 5 completed Not Available [facility] 09/06/2025 09:19:47 zoster recombinant 5 completed Not Available [facility] 09/06/2025 09:19:47 Past Encounters Encounter ID Performer Location Encounter Start Date Encounter Closed Date Diagnosis/Indication Diagnosis SNOMED-CT Code Diagnosis ICD10 Code Diagnosis IMO Codes Diagnosis Note [id number] Aden Doyle MD [facility] [address] [place] [address] 07/19/2025 09:46:32 07/19/2025 10:56:39 Recurrent urinary tract infection 271380511 N39.0 986463 Pruritus of vulva 501295 00 L29.2 795444 Type 2 marilin betes mellitus 73530904 E11.9 Z79.4 90655329 pt follows nikko, next appt in April, she would like to have labs done here Health Concerns Section Related Observation LastModified by Organization Detai ls LastModified Time None Recorded Concern Status LastModified by Organization Details LastModified Time None Recorded Payers Encounter Date Sequence Insurance Name Policy Number Policy Lester Covered Member ID Lester Member ID Guarantor Name 07/19/2025 1 [facility] ([facility] HIXHOANG Cox [id number] Brynn Cox Notes Date Note Type Note Provider Name and Address Organization Details Recorded Time 07/19/2025 text/html Brynn Cox is a 59-year-old female who presents for evaluation of possible urinary tract infection (UTI). Symptoms began approximately two days ago with a strong odor in the urine. Burning with urination started yesterday, accompanied by back pain described as pressure. Mild nausea is reported, but no fever, constipation, or recent antibiotic use. She has not traveled recently but is preparing for travel in about a week and a half. The patient has a history of diabetes and is currently taking Farxiga, which was previously discontinued due to urinary symptoms but was restarted in May by Dr. Garrett. Farxiga is noted to be a contributory factor for UTIs due to its mechanism of increasing glucose excretion in the urine. Urine analysis demonstrates white blood cells, nitrites indicative of infection (likely E. coli or gram-negative bacteria), proteinuria likely related to diabetes, blood, ketones, and significantly elevated glucose levels. The glucose elevation is attributed to Farxiga rather than poorly controlled blood sugar. She initially thought sx were related to yeast due to vulvar itching which as persisted. Aden Doyle MD [address] [facility], [place], [address], [facility] [place] 07/19/2025 11:47:28 OBGyn Episode No OBEpisode recorded.
--- OUTSIDE RECORDS SUMMARY | 2025-09-14 14:22 | XMS_ITS | Data Portability ---
Author Organization [facility] ADMIN Address [address] [place] [address] Care Team Providers Care Arcade Game Technician Name Role Phone LATOYAARACELI Primary Care Provider [phone] ALBERT VASQUEZ Primary Care Provider [phone] Assessment Encounter Date Assessment Date Assessment LastModified by Organization Details LastModified Time 05/17/2025 05/17/2025 trial of afrin f or no longer than 3 days health fay sherman in office discussed role of abx if sx not resolving or new fever develops Not available 05/17/2025 12:03:37 07/19/2025 07/19/2025 ASSESSMENT: - Possible urinary tract [...] sensitivity or resistance. A referral to a [facility] urologist will be initiated to reestablish care with a specialist, as it has been several years since the patient last saw urology. The patient will also be advised to contact Dr. Garrett, her pantograph machine operator, to discuss the impact of Farxiga on her urinary symptoms and explore alternative diabetes management options. Patient education will include recommendations to wear only cotton underwear, avoid irritants such as certain detergents, soaps, and loofahs, and increase water intake. The provider suggested switching from Propel to [place] or Liquid I.V., and use stevia as a sweetener, to reduce bladder inflammation and improve hydration. Not available 07/19/2025 11:47:12 08/02/2025 08/02/2025 ASSESSMENT: - Complete blockage of [...] for diabetic retinopathy management and inform the rip/mould operator of carotid artery findings to monitor for any changes. 48 minutes spent in the care fo this patient. Not available 08/02/2025 12:55:06 09/06/2025 09/06/2025 ASSESSMENT: - Internal carotid artery [...] patient is awaiting her rescheduled appointment with pantograph machine operator Katrina Dennis at [facility] to further evaluate and manage her diabetes. [...] Appointments OV EST 15 2025 10:15A M Araceli Dolye MD Not available Not available Not available Lab urinalys is, dipstick [address], [address], [place], [address], 07/19/2025 10:54:56 culture, urine 2024 025 DUNBAR [facility], [address] [place] [address], [place], [address], 07/22/2025 03:36:04 influenz a virus A + B + SARS-CoV -2 (COVID19 ) Ag panel, rapid IA, upper respirat ory specimen [address], [address], [place], [address], 05/17/2025 12:35:01 Referral urologis t referral 2024 025 [facility], [address], [place], [address], 08/17/2025 14:07:06 Procedures None recorded . Surgeries None recorded . Imaging None recorded . Medication Orders Macrobid 100 mg capsule 2024 025 [facility], [address] [place], [address], 08/02/2025 05:02:08 Patient TargetsNo targets recorded. Patient InstructionsNo instructions recorded. Reason for Referral Urologist Referral for Recur rent urinary tract infection Referring Physician: Araceli Doyle, Family Medicine, Encounter Date: 07/19/2025 Results Created Date Observation Date Name Description Value Unit Range Abnormal Flag Note LastModifiedBy Organization Detail LastModifiedTime 02/29/2003/01/2025 CBC WITH DIFFE RENTI AL/PL ATELE T WBC 7.1 x10e3 /uL 3.4-10 .8 normal Not Available [facility] ([facility]) [address] [place], [address], 03/01/2025 07:31:29 02/29/20 25 03/01/2025 CBC WITH DIFFE RENTI AL/PL ATELE T RBC 3.71 x10e6 /uL 3.77-5 .28 below low normal Not Available [facility] ([facility]) [address] [place], [address], 03/01/2025 07:31:29 02/29/20 25 03/01/2025 CBC WITH DIFFE RENTI AL/PL ATELE T hemoglobin 11.8 g/dL 11.1-1 5.9 normal Not Available [facility] ([facility]) [address] [place], [address], 03/01/2025 07:31:29 02/29/20 25 03/01/2025 CBC WITH DIFFE RENTI AL/PL ATELE T hematocrit 35.2 % 34.0-4 6.6 normal Not Available [facility] ([facility]) [address] [place], [address], 03/01/2025 07:31:29 02/29/20 25 03/01/2025 CBC WITH DIFFE RENTI AL/PL ATELE T MCV 95 fL 79-97 normal Not Available [facility] ([facility]) [address] [facility], [place], [address], 03/01/2025 07:31:29 02/29/20 25 03/01/2025 CBC WITH DIFFE RENTI AL/PL ATELE T MCH 31.8 pg 26.6-3 3.0 normal Not Available [facility] ([facility]) [address] [facility], [place], [address], 03/01/2025 07:31:29 02/29/20 25 03/01/2025 CBC WITH DIFFE RENTI AL/PL ATELE T MCHC 33.5 g/dL 31.5-3 5.7 normal Not Available [facility] ([facility]) [address] [facility], [place], [address], 03/01/2025 07:31:29 02/29/20 25 03/01/2025 CBC WITH DIFFE RENTI AL/PL ATELE T RDW 12.6 % 11.7-1 5.4 Not Available [facility] ([facility]) [address] [facility], [place], [address], 03/01/2025 07:31:29 02/29/20 25 03/01/2025 CBC WITH DIFFE RENTI AL/PL ATELE T platelets 225 x10e3 /uL 150-45 0 normal Not Available [facility] ([facility]) [address] [place], [address], 03/01/2025 07:31:29 02/29/20 25 03/01/2025 CBC WITH DIFFE RENTI AL/PL ATELE T neutrophils 79 % not estab. normal Not Available [facility] ([facility]) [address] [place], [address], 03/01/2025 07:31:29 02/29/20 25 03/01/2025 CBC WITH DIFFE RENTI AL/PL ATELE T lymphs 16 % not estab. normal Not Available [facility] ([facility]) [address] [place], [address], 03/01/2025 07:31:29 02/29/20 25 03/01/2025 CBC WITH DIFFE RENTI AL/PL ATELE T monocytes 5 % not estab. normal Not Available [facility] ([facility]) [address] [place], [address], 03/01/2025 07:31:29 02/29/20 25 03/01/2025 CBC WITH DIFFE RENTI AL/PL ATELE T eos 0 % not estab. normal Not Available [facility] ([facility]) [address] [place], [address], 03/01/2025 07:31:29 02/29/20 25 03/01/2025 CBC WITH DIFFE RENTI AL/PL ATELE T basos 0 % not estab. normal Not Available [facility] ([facility]) [address] [place], [address], 03/01/2025 07:31:29 02/29/20 25 03/01/2025 CBC WITH DIFFE RENTI AL/PL ATELE T immature cells EGG PROCESSING SUPERVISOR Not Available [facility]) [address] [place], [address], 03/01/2025 07:31:29 02/29/20 25 03/01/2025 CBC WITH DIFFE RENTI AL/PL ATELE T neutrophils (absolute) 5.6 x10e3 /uL 1.4-7. 0 normal Not Available [facility] ([facility]) [address] [place], [address], 03/01/2025 07:31:29 02/29/20 25 03/01/2025 CBC WITH DIFFE RENTI AL/PL ATELE T lymphs (absolute) 1.2 x10e3 /uL 0.7-3. 1 normal Not Available [facility] ([facility]) [address] [place], [address], 03/01/2025 07:31:29 02/29/20 25 03/01/2025 CBC WITH DIFFE RENTI AL/PL ATELE T monocytes(ab solute) 0.4 x10e3 /uL 0.1-0. 9 normal Not Available [facility] ([facility]) [address] [facility], [place], [address], 03/01/2025 07:31:29 02/29/20 25 03/01/2025 CBC WITH DIFFE RENTI AL/PL ATELE T eos (absolute) 0.0 x10e3 /uL 0.0-0. 4 normal Not Available [facility] ([facility]) [address] [facility], [place], [address], 03/01/2025 07:31:29 02/29/20 25 03/01/2025 CBC WITH DIFFE RENTI AL/PL ATELE T baso (absolute) 0.0 x10e3 /uL 0.0-0. 2 normal Not Available [facility] ([facility]) [address] [facility], [place], [address], 03/01/2025 07:31:29 02/29/20 25 03/01/2025 CBC WITH DIFFE RENTI AL/PL ATELE T immature granulocytes 0 % not estab. Not Available [facility] ([facility]) [address] [place], [address], 03/01/2025 07:31:29 02/29/20 25 03/01/2025 CBC WITH DIFFE RENTI AL/PL ATELE T immature grans (abs) 0.0 x10e3 /uL 0.0-0. 1 Not Available [facility] ([facility]) [address] [place], [address], 03/01/2025 07:31:29 02/29/20 25 03/01/2025 CBC WITH DIFFE RENTI AL/PL ATELE T NRBC EGG PROCESSING SUPERVISOR Not Available [facility] ([facility]) [address] [place], [address], 03/01/2025 07:31:29 02/29/20 25 03/01/2025 CBC WITH DIFFE LIZETTE AL/ASHISH Mckeon hematology comments: EGG PROCESSING SUPERVISOR Not Available [facility]) [address] [facility], [place], [address], 03/01/2025 07:31:29 02/29/20 25 03/01/2025 COMP. METAB OLIC PANEL (14) glucose 149 mg/dL 70-99 above high normal Not Available [facility] ([facility]) [address] [facility], [place], [address], 03/01/2025 07:31:31 02/29/20 25 03/01/2025 COMP. METAB OLIC PANEL (14) BUN 24 mg/dL 8-27 normal Not Available [facility] ([facility]) [address] [facility], [place], [address], 03/01/2025 07:31:31 02/29/20 25 03/01/2025 COMP. METAB OLIC PANEL (14) creatinine 0.96 mg/dL 0.57-1 .00 normal Not Available [facility] ([facility]) [address] [facility], [place], [address], 03/01/2025 07:31:31 02/29/20 25 03/01/2025 COMP. METAB OLIC PANEL (14) eGFR 67 mL/mi n/1.7 3 >59 normal Not Available [facility] ([facility]) [address] [facility], [place], [address], 03/01/2025 07:31:31 02/29/20 25 03/01/2025 COMP. METAB OLIC PANEL (14) BUN/creatini ne ratio 25 12-28 normal Not Available [facility]) [address] [facility], [place], [address], 03/01/2025 07:31:31 02/29/20 25 03/01/2025 COMP. METAB OLIC PANEL (14) sodium 142 mmol/ L 134-14 4 normal Not Available [facility] ([facility]) [address] [facility] [place], [address], 03/01/2025 07:31:31 02/29/20 25 03/01/2025 COMP. METAB OLIC PANEL (14) potassium 4.3 mmol/ L 3.5-5. 2 normal Not Available [facility] ([facility]) [address] [facility], [place], [address], 03/01/2025 07:31:31 02/29/20 25 03/01/2025 COMP. METAB OLIC PANEL (14) chloride 104 mmol/ L 96-106 normal Not Available [facility] ([facility]) [address] [facility], [place], [address], 03/01/2025 07:31:31 02/29/20 25 03/01/2025 COMP. METAB OLIC PANEL (14) carbon dioxide, total 22 mmol/ L 20-29 normal Not Available [facility] ([facility]) [address] [place], [address], 03/01/2025 07:31:31 02/29/20 25 03/01/2025 COMP. METAB OLIC PANEL (14) calcium 9.5 mg/dL 8.7-10 .3 normal Not Available [facility] ([facility]) [address] [place], [address], 03/01/2025 07:31:31 02/29/20 25 03/01/2025 COMP. METAB OLIC PANEL (14) protein, total 6.6 g/dL 6.0-8. 5 normal Not Available [facility] ([facility]) [address] [place], [address], 03/01/2025 07:31:31 02/29/20 25 03/01/2025 COMP. METAB OLIC PANEL (14) albumin 4.1 g/dL 3.9-4. 9 normal Not Available [facility] ([facility]) [address] [place], [address], 03/01/2025 07:31:31 02/29/20 25 03/01/2025 COMP. METAB OLIC PANEL (14) globulin, total 2.5 g/dL 1.5-4. 5 Not Available [facility] ([facility]) [address] [facility] [place], [address], 03/01/2025 07:31:31 02/29/20 25 03/01/2025 COMP. METAB OLIC PANEL (14) bilirubin, total 0.7 mg/dL 0.0-1. 2 normal Not Available [facility] ([facility]) [address] [place], [address], 03/01/2025 07:31:31 02/29/20 25 03/01/2025 COMP. METAB OLIC PANEL (14) alkaline phosphatase 103 IU/L 44-121 normal Not Available [facility]) [address] [place], [address], 03/01/2025 07:31:31 02/29/20 25 03/01/2025 COMP. METAB OLIC PANEL (14) AST (SGOT) 35 IU/L 0-40 normal Not Available [facility] ([facility]) [address] [facility] [place], [address], 03/01/2025 07:31:31 02/29/20 25 03/01/2025 COMP. METAB OLIC PANEL (14) ALT (SGPT) 61 IU/L 0-32 above high normal Not Available [facility] ([facility]) [address] [facility] [place], [address], 03/01/2025 07:31:31 02/29/20 25 03/01/2025 LIPID PANEL cholesterol, total 168 mg/dL 100-19 9 normal Not Available [facility] ([facility]) [address] [place], [address], 03/01/2025 07:31:32 02/29/20 25 03/01/2025 LIPID PANEL triglyceride s 205 mg/dL 0-149 above high normal Not Available [facility] ([facility]) [address] [place], [address], 03/01/2025 07:31:32 02/29/20 25 03/01/2025 LIPID PANEL HDL cholesterol 31 mg/dL >39 below low normal Not Available [facility] ([facility]) [address] [place], [address], 03/01/2025 07:31:32 02/29/20 25 03/01/2025 LIPID PANEL VLDL cholesterol bart 36 mg/dL 5-40 Not Available [facility]) [address] [place], [address], 03/01/2025 07:31:32 02/29/20 25 03/01/2025 LIPID PANEL LDL chol calc ([facility]) 101 mg/dL 0-99 above high normal Not Available [facility] ([facility]) [address] [place], [address], 03/01/2025 07:31:32 02/29/20 25 03/01/2025 LIPID PANEL LDL calc comment: EGG PROCESSING SUPERVISOR Not Available [facility]) [address] [place], [address], 03/01/2025 07:31:32 02/29/20 25 03/01/2025 THYRO ID PROFI LE II TSH 1.780 uIU/m L 0.450- 4.500 normal Not Available [facility] ([facility]) [address] [place], [address], 03/01/2025 07:31:33 02/29/20 25 03/01/2025 THYRO ID PROFI LE II thyroxine (T4) 7.8 ug/dL 4.5-12 .0 normal Not Available [facility] ([facility]) [address] [place], [address], 03/01/2025 07:31:33 02/29/20 25 03/01/2025 THYRO ID PROFI LE II T3 uptake 26 % 24-39 normal Not Available [facility] ([facility]) [address] [place], [address], 03/01/2025 07:31:33 02/29/20 25 03/01/2025 THYRO ID PROFI LE II free thyroxine index 2.0 1.2-4. 9 normal Not Available [facility] ([facility]) [address] [facility], [place], [address], 03/01/2025 07:31:33 02/29/20 25 03/01/2025 THYRO ID PROFI LE II triiodothyro nine (T3) 121 NG/dL 71-180 normal Not Available [facility]) [address] [place], [address], 03/01/2025 07:31:33 02/29/20 25 03/01/2025 ALBUM IN/CR EATIN INE RATIO ,URIN E creatinine, urine 125.1 mg/dL not estab. normal Not Available [facility] ([facility]) [address] [place], [address], 03/01/2025 07:31:34 02/29/20 25 03/01/2025 ALBUM IN/CR EATIN INE RATIO ,URIN E albumin, urine 867.1 ug/mL not estab. Resul ts confi rmed on dilut ion. Not Available [facility] ([facility]) [address] [place], [address], 03/01/2025 07:31:34 02/29/20 25 03/01/2025 ALBUM IN/CR EATIN INE RATIO ,URIN E alb/creat ratio 693 mg/g_ creat 0-29 above high normal Poppy l: 0 - 29 Moder ately incre ased: 30 - 300 Sever nguyen incre ased: >300 Not Available [facility] ([facility]) [address] [facility], [place], [address], 03/01/2025 07:31:34 02/29/20 25 03/01/2025 HEMOG LOBIN A1C hemoglobin A1C 7.4 % 4.8-5. 6 above high normal Predi abete s: 5.7 - 6.4 Diabe nikki: >6.4 Glyce hemant contr ol for adult s with diabe nikki: <7.0 Not Available [facility] ([facility]) [address] [facility], [place], [address], 03/01/2025 07:31:35 02/29/20 25 03/01/2025 VITAM IN D, 25-HY DROXY vitamin D, 25-hydroxy 33.4 NG/mL 30.0-1 00.0 Vitam in D defic iency has been defin ed by the Insti tute of Medic ine and an Endoc rine Socie ty pract ice guide line as a level of serum 25-OH vitam in D less than 20 ng/mL (1,2) . The Endoc rine Socie ty went on to furth er defin e vitam in D insuf ficie ncy as a level betwe en 21 and 29 ng/mL (2). 1. IOM (Inst itute of Medic ine). 2009. Dieta ry refer ence intak es for calci um and D. Tomasz durham [place]: The Natio nal [facility] Press . 2. Mahesh bacon [place], Julissa ey [place], Kezia off-F errar i FARLEY, et al. Evalu ation , treat ment, and preve ntion of vitam in D defic iency : an Endoc rine Socie ty clini bart pract ice guide line. JCEM. 2010; 96(7) :1911 -30. Not Available [facility] ([facility]) [address] [facility], [place], [address], 03/01/2025 07:31:36 05/17/20 25 05/18/2025 [facility] covid-19 coronavirus (sars-cov-2) 0 ppm 23.000 - 32.500 normal Not Detec ashley Not Available [facility] [address], [place], [address], 05/18/2025 11:39:57 05/17/20 25 05/18/2025 [facility] enterovirus D68 0 ppm 23.000 - 32.117 normal Not Detec ashley Not Available [facility] [address], [place], [address], 05/18/2025 11:39:57 05/17/20 25 05/18/2025 [facility] haemophilus influenzae 26.37 ppm 19.961 - 24.689 abnormal Detec ashley Not Available [facility] [address], [place], [address], 05/18/2025 11:39:57 05/17/20 25 05/18/2025 [facility] human metapneumovi pancho 0 ppm 23.000 - 32.210 normal Not Detec ashley Not Available [facility] [address], [place], [address], 05/18/2025 11:39:57 05/17/20 25 05/18/2025 [facility] influenza virus B 0 ppm 23.000 - 30.081 normal Not Detec ashley Not Available [facility] [address], [place], [address], 05/18/2025 11:39:57 05/17/20 25 05/18/2025 [facility] moraxella catarrhalis 0 ppm 19.961 - 24.689 normal Not Detec ashley Not Available [facility] [address], [place], [address], 05/18/2025 11:39:57 05/17/20 25 05/18/2025 [facility] mycoplasma pneumoniae 0 ppm 19.961 - 24.689 normal Not Detec ashley Not Available [facility] [address], [place], [address], 05/18/2025 11:39:57 05/17/20 25 05/18/2025 [facility] parainfluenz a virus (types 1, 2, 3, 4) 0 ppm 23.000 - 31.313 normal Not Detec ashley Not Available [facility] [address], [place], [address], 05/18/2025 11:39:57 05/17/20 25 05/18/2025 [facility] respiratory syncytial virus ([id number] 0015_po) 0 ppm 23.000 - 31.722 normal Not Detec ashley Not Available [facility] [address], [place], [address], 05/18/2025 11:39:57 05/17/20 25 05/18/2025 [facility] streptococcu s pneumoniae 0 ppm 19.961 - 24.689 normal Not Detec ashley Not Available [facility] [address], [place], [address], 05/18/2025 11:39:57 05/17/20 25 05/18/2025 [facility] chlamydia pneumoniae 0 ppm 19.961 - 24.689 normal Not Detec ashley Not Available [facility] [address], [place], [address], 05/18/2025 11:39:57 05/17/20 25 05/18/2025 [facility] bordetella pertussis, parapertussi s, bronchisepti ca 0 ppm 19.961 - 24.689 normal Not Detec ashley Not Available [facility] [address], [place], [address], 05/18/2025 11:39:57 05/17/20 25 05/18/2025 [facility] coronaviruse s (229E, nl63, hku1, oc43) (g_betacoron avirus_1_g_c oronavirus_h ku1) 0 ppm 23.000 - 31.416 normal Not Detec ashley Not Available [facility] [address], [place], [address], 05/18/2025 11:39:57 05/17/20 25 05/18/2025 [facility] rhinovirus/e nterovirus (RV_[id number] [id number]_po) 0 ppm 23.000 - 32.985 normal Not Detec ashley Not Available [facility] [address], [place], [address], 05/18/2025 11:39:57 05/17/20 25 05/18/2025 [facility] adenovirus (adv_1of2_VI [id number]_po) 0 ppm 23.000 - 31.943 normal Not Detec ashley Not Available [facility] [address], [place], [address], 05/18/2025 11:39:57 05/17/20 25 05/17/2025 influ syd[place] virus A + B + SARS- CoV-2 (COVI D19) Ag panel , rapid IA, upper respi rator y speci men FLU A negati ve Not Available [address], [place], [address], 05/17/2025 10:55:36 05/17/20 25 05/17/2025 influ sydney virus A + B + SARS- CoV-2 (COVI D19) Ag panel , rapid IA, upper respi rator y speci men FLU B negati ve Not Available [address], [place], [address], 05/17/2025 10:55:36 05/17/20 25 05/17/2025 influ sydney virus A + B + SARS- CoV-2 (COVI D19) Ag panel , rapid IA, upper respi rator y speci men SARS COV + SARS OV 2 negati ve Not Available [facility] [address], [place], [address], 05/17/2025 10:55:36 07/19/20 25 07/20/2025 VAGIN ITIS atopobium vaginae 0 ppm 16.961 - 24.669 normal Not Detec ashley Not Available [facility] [address], [place], [address], 07/20/2025 11:23:48 07/19/20 25 07/20/2025 VAGIN ITIS bvab 2,3 (bacterial vaginosis associated bacteria 2, 3); mobiluncus spp 0 ppm 16.961 - 24.669 normal Not Detec ashley Not Available [facility] [address], [place], [address], 07/20/2025 11:23:48 07/19/20 25 07/20/2025 VAGIN ITIS noe albicans, parapsilosis , tropicalis 0 ppm 16.961 - 33.829 normal Not Detec ashley Not Available [facility] [address], [place], [address], 07/20/2025 11:23:48 07/19/20 25 07/20/2025 VAGIN ITIS noe glabrata (nakaseomyce s glabratus) 0 ppm 23.000 - 31.573 normal Not Detec ashley Not Available [facility] [address], [place], [address], 07/20/2025 11:23:48 07/19/20 25 07/20/2025 VAGIN ITIS noe krusei (pichia kudriavzevii ) 0 ppm 23.000 - 31.327 normal Not Detec ashley Not Available [facility] [address], [place], [address], 07/20/2025 11:23:48 07/19/20 25 07/20/2025 VAGIN ITIS chlamydia trachomatis 0 ppm 23.000 - 30.991 normal Not Detec ashley Not Available [facility] [address], [place], [address], 07/20/2025 11:23:48 07/19/20 25 07/20/2025 VAGIN ITIS gardnerella vaginalis 0 ppm 16.961 - 24.669 normal Not Detec ashley Not Available [facility] [address], [place], [address], 07/20/2025 11:23:48 07/19/20 25 07/20/2025 VAGIN ITIS megasphaera (types 1, 2) 0 ppm 16.961 - 24.669 normal Not Detec ashley Not Available [facility] [address], [place], [address], 07/20/2025 11:23:48 07/19/20 25 07/20/2025 VAGIN ITIS neisseria gonorrhoeae 0 ppm 23.000 - 32.123 normal Not Detec ashley Not Available [facility] [address], [place], [address], 07/20/2025 11:23:48 07/19/20 25 07/20/2025 VAGIN ITIS trichomonas vaginalis 0 ppm 23.000 - 31.944 normal Not Detec ashley Not Available [facility] [address], [place], [address], 07/20/2025 11:23:48 07/19/20 25 2025 URINE CULTU RE, ROUTI NE urine culture, routine FINAL REPORT abnormal Not Available [facility]) [address] [facility], [place], [address], 07/22/2025 03:36:04 07/19/2007/21/2025 URINE CULTU RE, ROUTI [...] ng units per mL Not Available [facility] ([facility]) [address] [facility], [place], [address], 07/22/2025 03:36:04 07/19/20 25 2025 URINE CULTU [...] thopr im/Olivier lfa S Not Available [facility] ([facility]) [address] [facility], [place], [address], 07/22/2025 03:36:04 07/19/20 25 07/19/2025 urina lysis , dipst ick Leukocytes (reference range) small Not Available [facility] [address], [place], [address], 07/19/2025 10:32:50 07/19/20 25 07/19/2025 urina lysis , dipst ick Nitrite (reference range:) positi ve Not Available [facility] [address], [place], [address], 07/19/2025 10:32:50 07/19/20 25 07/19/2025 urina lysis , dipst ick Urobilinogen (reference range) 0.2 Not Available [facility] [address], [place], [address], 07/19/2025 10:32:50 07/19/20 25 07/19/2025 urina lysis , dipst ick Protein (reference range) 300 Not Available [facility] [address], [place], [address], 07/19/2025 10:32:50 07/19/20 25 07/19/2025 urina lysis , dipst ick pH (reference range 5-8.5) 5.5 Not Available [facility] [address], [place], [address], 07/19/2025 10:32:50 07/19/20 25 07/19/2025 urina lysis , dipst ick Blood (reference range:) large Not Available [facility] [address], [place], [address], 07/19/2025 10:32:50 07/19/20 25 07/19/2025 urina lysis , dipst ick Specific [place] (reference range) 1.025 Not Available [facility] - [address], [place], [address], 07/19/2025 10:32:50 07/19/20 25 07/19/2025 urina lysis , dipst ick Ketone (reference range) trace Not Available [facility] [place] [address], [place], [address], 07/19/2025 10:32:50 07/19/20 25 07/19/2025 urina lysis , dipst ick Bilirubin (reference range) negati ve Not Available [facility] [address], [place], [address], 07/19/2025 10:32:50 07/19/20 25 07/19/2025 urina lysis , dipst ick Glucose (reference range) 1000 Not Available [facility] [address], [place], [address], 07/19/2025 10:32:50 07/19/20 25 07/19/2025 urina lysis , dipst ick Color (reference range: yellow-brown ) Dark Yellow Not Available [facility] [address], [place], [address], 07/19/2025 10:32:50 03/31/20 25 03/31/2025 MAMMO , scree roma, bilat eral No observ ation record ed. [email or web address] [facility] ([facility]) [address] [facility], [place], [address], 04/04/2025 10:09:58 03/31/20 25 03/31/2025 pham scrn mammo impl w/CAD french [facility] [address] [place] [address] Phone: Fax: Name: KAYLEE DONIS Exam Date: 025 : [birth year] Age 59 years Gender : F Access ion: [id number] Physic marlen: SHAKIRA, ARACELI Facili ty: [facility] Facili ty HSV: Outpat ient Exam: PHAM SCRN MAMMO IMPL W/CAD FRENCH Exam: 3-D screen ing mammog david includ ing tomosy nthesi s and CAD (Compu ter Assist ed Detect ion). Clinic al indica tion: Asympt omatic screen ing exam Compar disha: Exams to 2022 TECHNI QUE: Routin e bilate ral 2D screen ing mammog ivonne with CC and MLO views obtain ed. 3-D tomosy nthesi s and Comput er assist ed detect ion were utiliz ed for this exam. BREAST DENSIT Y: There are scatte red areas of fibrog landul ar densit y FINDIN GS: No suspic ious mass, carmelo ectura l distor tion, or suspic ious calcif icatio ns are presen t. Bilate ral implan ts IMPRES FARIBA: No eviden ce of malign gómez in either breast Recomm endati on: Annual screen ing mammog david recomm ended in one year The result s of this report will be commun icated to the patien t by letter in layman 's terms. ACR BI-RAD S: BI-RAD S assess ment catego ry 1: Negati ve mammog ivonne Mammog david does not detect approx imatel y 10-15% of breast cancer s. A normal mammog ivonne does not exclud e breast cancer in a patien t with palpab le mass or abnorm al findin gs on physic al examin ation. These patien ts may need biopsi es and when clinic ally indica ashley a biopsy should not be postpo loc becaus e of a normal mammog ivonne. If the patien t has breast surger y or biopsy , FDA/ [place] Regula tory Guidel sanjeev mandat e that this facili ty receiv e pathol ogic result s for follow -up correl ation. Electr onical ly signed by: Satish Covarrubias MD 2024 09:30 AM EDT RP Workst ation: [id number] Dictat ed By: Satish Covarrubias Transc ribed By: Transc ribed On: 025 9:30 AM Electr onical ly signed by: Satish Covarrubias 025 Thank you for referr KAYLEE Peck to [facility]. Legall y authen ticate d by DREW CARMICHAEL 03-31 09:30: 12 CC'ed Logic: Orderi ng Provid er: LATOYA SAMANIEGO CC Provid er: LATOYA SAMANIEGO Attend ing Provid er: LATOYA SAMANIEGO Referr ing Provid er: LATOYA SAMANIEGO Admitt ing Provid er: LATOYA SAMANIEGO [facility] [address] [place] [address], [address], 04/17/2025 09:11:10 03/31/20 25 03/31/2025 DEXA No observ ation record ed. [facility] ([facility]) [address] [facility], [place], [address], 04/04/2025 10:11:15 03/31/20 25 03/31/2025 dexa bone densi ty AX [facility] [address] [place] [address] Phone: Fax: Name: KAYLEE DONIS Exam Date: : [birth year] Age 59 years Gender : F Access ion: [id number] Physic marlen: ARACELI DOYLE Facili ty: [facility] Facili ty HSV: Outpat ient Exam: DEXA BONE DENSIT Y AX EXAMIN ATION: DUAL X-RAY ABSORP TIOMET RY (DXA) FOR BONE MINERA L DENSIT Y. CLINIC AL INDICA TION: 59 years old, Female . Postme nopaus al. Screen ing for osteop orosis . TECHNI QUE: An axial (e.g., hips, spine) and/or append icular (e.g., radius ) exam was perfor med, as approp riate, using [place] iDXA densit ometer . Images are obtain ed for bone minera l densit y measur ement and are not obtain ed for diagno stic purpos es. [id number] 2 COMPAR DISHA: None. FINDIN GS: Scan qualit y: Good. LUMBAR SPINE (L1-L4 ): BMD (in g/cm*2 ): 1.268. T-scor e: 0.6. Z-scor e: 1.9. LEFT FEMORA L NECK: BMD (in g/cm*2 ): 0.803. T-scor e: -1.7. Z-scor e: -0.4. LEFT TOTAL HIP: BMD (in g/cm*2 ): 0.901. T-scor e: -0.8. Z-scor e: 0.2. RIGHT FEMORA L NECK: BMD (in g/cm*2 ): 0.817. T-scor e: -1.6. Z-scor e: -0.3. RIGHT TOTAL HIP: BMD (in g/cm*2 ): 0.886. T-scor e: -1.0. Z-scor e: 0.0. FRAX 10-YEA R PROBAB ILITY OF FRACTU RE: 10-yea r fractu re risk is perfor med using the [employer] FRAX calcul ator based on patien t-repo rted risk factor s. Major osteop orotic fractu re: 16.7%. Hip fractu re: 0.9%. IMPRES FARIBA: Osteop enia based on BMD. World Health Organi zation criter ia for BMD impres fariba classi fy patien ts as: - Normal (T-sco re at or above -1.0). - Osteop enia (T-sco re betwee n -1.0 and -2.5). - Osteop orosis (T-sco re at or below -2.5). Per the Bone Health and Osteop orosis Founda tion the FRAX tool is most useful in patien ts with low femora l neck bone minera l densit y (osteo penia) . FRAX is Legall y authen ticate d by GLORIA MCMILLAN 2024-0 03-31 17:55: 55 calcul ated per reques t. RECOMM ENDATI ONS: 1. All patien ts should optimi ze their calciu m and vitami n D intake . 2. Consid er FDA-ap proved medica l therap ies in postme nopaus al women and men aged 50 years and older, based on the follow ing: - A hip or verteb ral (clini bart or morpho metric ) fractu re. - T-scor e less than or equal to -2.5 at the femora l neck or spine after approp riate evalua tion to exclud e second sameera causes . - Low bone densit y (T-sco re betwee n -1.0 and -2.5 at the femora l neck or spine) and a 10-yea r probab ility of a hip fractu re greate r than or equal to 3% or a 10-yea r probab ility of a major osteop orosis -relat ed fractu re greate r than or equal to 20% based on FRAX calcul ation. - Clinic marlen judgme nt and/or patien t prefer ences may indica te treatm ent for people with 10-yea r fractu re probab ilitie s above or below these levels . - Betty quiles ce on treatm ent can be found at the [facility] al Osteop orosis Founda tion's websit e boneso urce.o rg. 3. Patien ts with diagno sis of osteop orosis or at high risk for fractu re should have regula r bone minera l densit y tests. For patien ts eligib le for Medica re, routin e testin g is allowe d once every 2 years. The testin g freque ncy can be increa sed to one year for patien ts who have rapidl y progre ssing diseas e, those who are receiv ing or discon tinuin g medica l therap y to restor e bone mass or have additi onal risk factor s. Electr onical ly signed by: Houston Sung MD 2024 05:55 PM EDT RP Workst ation: [id number] Dictat ed By: Houston Sung Transc ribed By: Transc ribed On: 025 5:55 PM Electr onical ly signed by: Houston Sung Thank you for referr KAYLEE Peck to [facility]. Legall y authen ticate d by GLORIA MCMILLAN 2024-0 03-31 17:55: 55 CC'ed Logic: Orderi ng Provid er: LATOYA SAMANIEGO CC Provid er: LATOYA SAMANIEGO Attend ing Provid er: LATOYA SAMANIEGO Referr ing Provid er: LATOYA SAMANIEGO Admitt ing Provid er: LATOYA SAMANIEGO [email or web address] [facility] [address] [facility], [place], [address], 04/07/2025 14:19:06 04/03/20 25 03/31/2025 DEXA No observ ation record ed. [facility] ([facility]) [address] [facility], [place], [address], 04/04/2025 10:11:16 Result Notes None recorded. Problems Name Problem SNOMED Code Status Onset Date Resolution Date Notes Provider Name and Address Organization Details Recorded Time Uncontrolled type 2 diabetes mellitus 868949676 Active 2022 Not Available [facility] 3 12:22:57 Hyperlipidemi a 76780677 Active 2022 Not Available [facility] 3 12:22:57 Essential hypertension 07317110 Active 2022 Not Available [facility] 3 12:22:57 Vitamin D deficiency 35945739 Active 2022 Not Available [facility] 3 12:22:57 Problem Notes None recorded. Procedures Surgical History Date Name Laterality Status Provider Name and Address Organization Details Recorded Time 03/31/20 25 Most Recent Mammogram completed Salome DELA CRUZ [facility] 08/24/2025 10:05:26 03/31/20 25 Most Recent Bone Density completed Salome DELA CRUZ [facility] 08/24/2025 10:05:32 02/21/20 25 Date of Last Pap Smear completed Nikki DELA CRUZ [facility] [place] 05/17/2025 10:56:03 07/08/20 23 Cholecystectomy completed Jacqueline DELA CRUZ [facility] [place] 03/09/2024 10:18:32 01/18/20 23 Feces-based colorectal cancer DNA screening completed Gris DELA CRUZ [facility] [place] 01/30/2025 15:48:46 12/24/19 19 Feces-based colorectal cancer DNA screening completed Gris DELA CRUZ [facility] [place] 01/30/2025 15:48:04 Tubal Ligation completed Jacqueline DELA CRUZ [facility] [place] 12/31/2023 09:30:16 abdominoplasty completed Jacqueline DELA CRUZ [facility] [place] 12/31/2023 09:30:22 Breast augmentation w/implt completed Jacqueline DELA CRZU [facility] [place] 06/23/2024 13:31:24 Imaging Results None recorded. Procedure Notes None recorded. Medical Equipment None Reported. Allergies Allergen ID Allergen Name Allergen Category Reaction Reaction Severity Criticality Documentation Date Start Date Code Code System Note Provider Name and Address Organization Details Recorded Time 89831 codeine medicatio n Not available Not available Not available 09/08/2022 2670 RxNorm Other react ions and sever ities : 'Drug -juana caleb nause a and vomit ing - Sever e'. HOANG Henriquez [facility] [place] 5 10:43:02 01065 Substance with sulfonami de structure and antibacte rial mechanism of action (substanc e) medicatio n vomiting Not available Not available 09/08/2022 51309 8003 SNOMED GI Intol eranc e HOANG Henriquez [facility] [place] 15:52:52 Medications Name Sig Start Date Stop [...] CAPSULES ONCE DAILY 09/06 completed Tomy williamson [facility], Black Cohosh, Vit D3, Vit B6 [...] completed Not Available Not Available Not Available Basaglar KwikPen U-100 Insulin 100 unit/mL (3 mL) subcutane ous INJECT 40am and 20pm UNITS SUBCUTAN EOUSLY ONCE DAILY active Not Available Not Available No t Available FreeStyle Jovita 14 Day [place] USE DIRECTED 06/06 completed Not Available Not [...] Available No t Available FreeStyle Jovita 3 [place] USE TO TEST BLOOD GLUCOSE DAILY DIRECTED active Not Available Not Available No t Available Vitals Date Recorded Body height Body mass index (BMI) Body weight Body temperature Oxygen saturation Oxygen saturation in Arterial blood by Pulse oximetry Heart rate Systolic And Diastolic Provider Name and Address Organization Details Last Updated DateTime 5 172.72 cm 25.1 kg/m2 57839.7 4 g 96.6 [degF] 100 % 100 % 104 /min 140/88 mm[Hg] [facility] [place] 5 10:53:58 Date Recorded Body height Body mass index (BMI) Body weight Body temperature Oxygen saturation Oxygen saturation in Arterial blood by Pulse oximetry Heart rate Systolic And Diastolic Provider Name and Address Organization Details Last Updated DateTime 5 172.72 cm 25.1 kg/m2 96227.7 4 g 98.4 [degF] 96 % 96 % 97 /min 124/72 mm[Hg] Nikki Caro [facility] [place] 5 10:22:51 Date Recorded Body height Body mass index (BMI) Body weight Body temperature Oxygen saturation Oxygen saturation in Arterial blood by Pulse oximetry Heart rate Systolic And Diastolic Provider Name and Address Organization Details Last Updated DateTime 5 172.72 cm 24.5 kg/m2 27836.3 7 g 97.8 [degF] 100 % 100 % 104 /min 128/84 mm[Hg] [facility] [place] 5 10:13:28 Date Recorded Body height Body mass index (BMI) Body weight Body temperature Heart rate Oxygen saturation Oxygen saturation in Arterial blood by Pulse oximetry Systolic And Diastolic Provider Name and Address Organization Details Last Updated DateTime 5 172.72 cm 24.6 kg/m2 39548.6 4 g 97.7 [degF] 64 /min 98 % 98 % 110/64 mm[Hg] Korntey Olea [facility] [place] 5 09:45:34 Social History Question Answer Notes LastModified by Organizat ion Details LastModified Time Tobacco Smoking Status [facility] [place] 09/08/2022 09:29:20 Do You Have An Advance Directive? No [email or web address] Information not available 09/08/2022 Are You Blind Or Do You Have Difficulty Seeing? No [email or web address] Information not available 09/08/2022 What Is Your Level Of Caffeine Consumption? Occasional Information not available 06/12/2023 What Was The Date Of Your Most Recent Tobacco Screening? 06/06/2024 [email or web address] Information not available 06/08/2024 Are You Passively Exposed To Smoke? No [email or web address] Information not available 05/14/2023 Has Tobacco Cessation Counseling Been Provided? No [email or web address] Information not available 06/12/2023 Sex: Female Functional Status Question Answer Note LastModified by Organizat ion Details LastModified Time Do you use any illicit or recreational drugs? No [email or web address] Information not available 09/08/2022 Do you or have you ever used any other forms of tobacco or nicotine? No [email or web address] Information not available 06/12/2023 What is your level of alcohol consumption? None [email or web address] Information not available 09/08/2022 What is your exercise level? Occasional [email or web address] Information not available 09/08/2022 Mental Status Question Answer Note LastModified by Organization D etails LastModified Time Do you feel stressed (tense, restless, nervous, or anxious, or unable to sleep at night)? [id number] [email or web address] Information not available 09/08/2022 Family History Relationship [...] completed Sherin gaspar, [place] - [facility] [place] [facility] [place] 07/27/2023 10:22:26 pneumococcal polysaccharide PPV23 2 completed Not Available [facility] 04/01/2023 12:22:57 Influenza, split virus, quadrivalent, PF 6 completed Not Available [facility] 04/01/2023 12:22:57 Hep B, adult 9 completed Not Available [facility] 04/01/2023 12:22:57 Hep B, adult 6 completed Not Available [facility] 04/01/2023 12:22:57 influenza, unspecified formulation 6 completed Not Available [facility] 04/01/2023 12:22:57 Tdap 6 completed Not Available [facility] 04/01/2023 12:22:57 pneumococcal polysaccharide PPV23 6 completed Not Available [facility] 04/01/2023 12:22:57 Influenza, split virus, quadrivalent, PF 0 completed Not Available [facility] 04/01/2023 12:22:57 Influenza, split virus, quadrivalent, preservative 7 completed Not Available [facility] 04/01/2023 12:22:57 Influenza, split virus, quadrivalent, PF 8 completed Not Available [facility] 04/01/2023 12:22:57 influenza, unspecified formulation 8 completed Not Available [facility] 04/01/2023 12:22:57 influenza, unspecified formulation 9 completed Not Available [facility] 04/01/2023 12:22:57 Influenza, MDCK, quadrivalent, PF 9 completed Not Available [facility] 04/01/2023 12:22:57 zoster recombinant 3 completed Zara Shaw null, [place] [facility] [place] 05/20/2023 09:03:37 Pneumococcal conjugate PCV20, polysaccharide [id number] conjugate, adjuvant, PF 3 completed Zara Shaw null, [place] [facility] [place] 05/20/2023 09:03:37 Influenza, MDCK, quadrivalent, PF 2 completed Araceli Doyle MD [address] [facility], [place], [address], [place] [facility] [place] 09/08/2022 12:27:58 Influenza, recombinant, trivalent, PF 4 completed Nikki Caro null, [place] [facility] [place] 05/17/2025 10:43:18 Influenza, recombinant, trivalent, PF 5 completed Not Available [facility] 09/06/2025 09:19:47 zoster recombinant 5 completed Not Available [facility] 09/06/2025 09:19:47 Past Encounters Encounter ID Performer Location Encounter Start Date Encounter Closed Date Diagnosis/Indication Diagnosis SNOMED-CT Code Diagnosis ICD10 Code Diagnosis IMO Codes Diagnosis Note [id number] Araceli Doyle MD [address] [place] [address] 09/08/2022 09:19:18 09/08/2022 10:11:40 Essential hypertension 84517141 I10 stop metoprolol and start coreg at 12.5mg BIDpt to call with updated pressure readings in 48 hours, f/u in one weekconsid er cards if persisting . Abnormal urine odor 8769 003 R82.90 Administra tion of influenza vaccine 27691927 Z23 [id number] Araceli Doyle MD [address] [place] [address] 10/13/2022 13:29:50 10/13/2022 14:19:29 Recurrent urinary tract infection 199694860 N39.0 Essential hypertension 76799572 I10 continue carvedilol at current dose but will plan to increase to 25mg BID if still high at f/u in 2 weeks. Reading in office shows improvemen t but home readings are high, this may be secondary to recent decongesta nt and cold medication use.consid er cardiology if this persists. Hyperlipidemia 43202816 E78.5 Type 2 marilin betes mellitus 42531870 Z79.4 Vitamin D deficiency 347 65504 E55.9 [id number] Araceli Doyle MD [address] [place] [address] 10/16/2022 09:43:24 10/16/2022 09:55:36 [id number] Araceli Doyle MD [address] [place] [address] 10/28/2022 13:31:09 10/28/2022 14:13:07 Type 2 diabetes mellitus 99696297 Z79.4 pt to call for sooner appt with endo Essential hypertension 57571375 I10 continue carvedilol at current dose, add lisinopril 10mg Familial hypercholesterolemia 178734485 E78.01 Vitamin D deficiency 347 49359 E55.9 double current dose [id number] Alaina Hayes NP, [facility] [address] [facility] [place] [address] 12/22/2022 10:40:07 12/22/2022 12:07:01 History of urinary tract infection 2601762755 107 Z87.440 UA clearDiscu ssed active bowel habits, probiotics , cranberry supplement s Qday-tid, hygeine, voiding prior to and post sex (wash), and wipe front to back. Will hold off on Renal US and KUB at this timeRTC in 3 months for f/u with UA Constipation 64111558 K5 9.00 Nocturia 839213003 R35.1 History of diabetes mellitus 689965303 Z86.39 [id number] Araceli Doyle MD [address] [place] [address] 12/23/2022 08:26:49 12/23/2022 09:30:30 Abnormal wellness exam 1056514250 56572 Z00.01 Screening for malignant neoplasm of breast 833334496 Z12.39 Screening for malignant neoplasm of colon 747422794 Z12.11 pt thinks she had cologuard last year, we don't have record of this. SHe will check with prior PCP office and call us with date, if due we will order. Essential hypertension 63916973 I10 pt had been taking her carvediolo l at 2x 12.5mg QHS, pressure still high and did tolerate this well so we will go to 25mg BID and keep lisinopril at 10mg. Hyperlipidemia 87183610 E78.5 Type 2 marilin betes mellitus 10945914 Z79.4 pt will f/u with endo in March, we will have her f/u here in February for a1c [id number] Araceli Doyle MD [address] [place] [address] 02/17/2023 08:39:44 02/17/2023 09:59:43 Hepatomegaly 40796788 R16.0 hida pending to determine GI vs GSmay need CT ab pending those results. Serum crea tinine above reference range 880596423 R79.89 repeat pending Uniform ab dominal distention 626342312 R14.0 trial of miralaxhid a pendingcon ride mechanic CT ab/pelvis after HIDA [id number] Alaina Hayes NP, [facility] [address] [place] [address],[address] [place] [address] 04/08/2023 09:45:37 04/08/2023 10:40:26 History of recurrent urinary tract infection 682835112 Z87.440 UA clearRTC in 6 months for f/u Constipation 59376900 K5 9.00 Nocturia 950074803 R35.1 History of diabetes mellitus 330330662 Z86.39 [id number] Bertha Royal MD [facility] [address] [place] [address],[address] [place] [address] 04/21/2023 09:30:20 04/21/2023 10:11:25 Biliary dyskinesia 368116842 K82.8 Symptomati c biliary dyskinesia . We did discuss risks and benefits of robotic cholecyste ctomy, including bleeding, infection, damage to surroundin g structures and persistent symptoms. Patient is uncertain when she would like to proceed with surgery and will contact the office to schedule a future date. [id number] Araceli Doyle MD [address] [place] [address] 05/20/2023 08:22:57 05/20/2023 10:09:08 Lower respiratory tract infection 56842103 J22 Biliary dyskinesia 2007 K82.8 pt would like to have secondary consult Essential hypertension 63176005 I10 consult cards due to family hx and risk factors Fatigue 78253331 R53.83 [id number] Jhon Dove MD [facility] [address] [place] [address] 06/12/2023 09:46:12 06/12/2023 11:03:11 Liver enzymes level above reference range 492668475 R74.01 Biliary dyskinesia 2007 K82.8 [id number] Bertha Royal MD [facility] [address] [facility] [place] [address] 07/28/2023 08:52:05 07/28/2023 09:48:48 Calculus of gallbladder with cholecystitis 17690626 K80.10 Stable postop. No restrictio ns. Was given work release. F/U with nc PRN. [id number] Alaina Hayes NP, [facility] [address] [facility] [place] [address] 10/13/2023 08:41:49 10/13/2023 09:05:47 History of urinary tract infection 5926027124 107 Z87.440 UA clearRTC in 1 year for f/u Constipation 80788514 K5 9.00 Nocturia 080172441 R35.1 History of diabetes mellitus 046642832 Z86.39 [id number] Araceli Doyle MD [address] [place] [address] 01/07/2024 08:59:36 01/07/2024 10:20:45 Adult health examination 432935638 Z00.00 Screening for malignant neoplasm of breast 594860304 Z12.39 [id number] Araceli Doyle MD [address] [place] [address] 03/08/2024 08:51:57 03/08/2024 10:15:03 Abscess of labia 636589590 N76.4 small amount of purulent material able to be expressed, limited patient tolerance, will start abxcontinu e warm compresssh ort term f/u for possible I and Dstrict control of glucose advised Uncontroll ed type 2 diabetes mellitus 209762787 E11.65 compliant with medsiimpro ving with use of mounjarofa sting this AM approx [id number] Glen Brandon MD [facility] [address] [place] [address] 06/01/2024 13:48:35 06/01/2024 15:10:07 Recurrent urinary tract infection 635068485 N39.0 [id number] Araceli Doyle MD [facility] [address] [facility] [place] [address] 06/08/2024 09:43:33 06/08/2024 11:06:59 Recurrent urinary tract infection 215463300 N39.0 Fatigue 93063669 R53.83 [id number] Araceli Doyle MD [facility] [address] [facility] [place] [address] 02/27/2025 15:00:33 02/27/2025 16:32:49 General examination of patient 281787564 Z00.00 [id number] At [facility] ed risk of osteoporosis 374997813 Z91.89 [id number] Familial hypercholesterolemia 783319470 E78.01 Essential hypertension 40368272 I10 Depressive disorder 3548 9007 F32.A Type 2 marilin betes mellitus 45187312 E11.9 Z79.4 [id number] pt follows endo, next appt in April, she would like to have labs done here Family his tory of Thyroid disorder 642787651 Z83.49 986377 Vitamin D deficiency 347 59979 E55.9 00183 double current dose [id number] Araceli Doyle MD [facility] [address] [facility] [place] [address] 02/28/2025 09:06:35 02/28/2025 09:21:33 Type 2 diabetes mellitus 78379745 E11.9 Z79.4 [id number] pt follows endo, next appt in April, she would like to have labs done here [id number] [facility] [address] [facility] [place] [address] 05/17/2025 10:11:57 05/17/2025 11:20:25 Upper respiratory tract finding [id number] R09.89 [id number] 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 [id number] 109 E11.3599 [id number] Araceli Doyle MD [facility] [address] [facility] [place] [address] 07/19/2025 09:46:32 07/19/2025 10:56:39 Recurrent urinary tract infection [id number] N39.0 425111 Pruritus of vulva 825172 00 L29.2 551865 Type 2 marilin betes mellitus 36830983 E11.9 Z79.4 [id number] pt follows nikko, next appt in April, she would like to have labs done here [id number] Araceli Doyle MD [facility] [address] [facility] [address] [place] [address] 08/02/2025 10:05:09 08/02/2025 10:58:44 Vasovagal syncope [id number] R55 411596 Bilateral stenosis of carotid arteries 868275314 I65.23 676436 Retinopath y due to type 2 diabetes mellitus 121455554 E11.319 Z79.4 [id number] pt follows nikko next appt in April, she would like to have labs done here Acute constipation 9006 K59.00 867024 [id number] Albert Vasquez MD [facility] [address] [facility] [place] [address] 09/06/2025 09:16:32 09/06/2025 10:21:50 Type 2 diabetes mellitus 12425764 E11.9 recent A1c 6.9%. Currently on Basaglar insulin 40 units in the morning and 20 units in the evening along with Farxiga 5 mg once a day Anxiety 52419975 F41.9 stable on venlafaxin e ER 75 mg daily Post-disch arge follow-up [id number] Z09 031468 Admitted on 08/21/2025 to [facility], discharged on 08/23/2025 , being seen in office 14 days later for transition al care on 09/06/2025 . Asymptomat ic at present. Has scheduled follow up with neurosurge on tomorrow. Reviewed notes we have from [facility] and discussed in depth her dispositio n with her and her Cerebrovas cular disease 26768625 I67.9 74935 currently on 81 mg aspirin daily along with Plavix 75 mg daily and atorvastat in 80 mg daily Essential hypertension 41400872 I10 BP is 110/64. On carvedilol 12.5 b.i.d. Health Concerns Section Related Observation LastModified by Organization Detai ls LastModified Time None Recorded Concern Status LastModified by Organization Details LastModified Time None Recorded Advance Directives Directive N: Payers Insurance Date Sequence Insurance Name Policy Number Policy Lester Covered Member ID Lester Member ID Guarantor Name 09/06/2025 1 [facility] [place] [place] KRISTINE Cox [id number] Kaylee Cox Notes Date Note Type Note Provider Name and Address Organization Details Recorded Time 05/17/2025 text/html ROS as noted in the HPI She has had a cough for 6 days that initally started with a fever. She did lose her voice but this is improving. She had body aches that have resolved. She has congestion and ear fullness that is bothering her. She has bene trying mucinex and zicam. She has been around her young grandchildren and her daughter who had cold like symptoms recently. She is concerned about progression due to her DM.Also regarding her DM, she notes that her endo put her on a combo of both mounjaro and trulicity concurrently to better lower her a1c. which was most recently 7 per pt. Araceli Doyle MD [address] [facility], [place], [address], [facility] [place] [facility] [place] 05/17/2025 12:03:49 07/19/2025 text/html Kaylee Cox is a 59-year-old female who presents [...] due to vulvar itching which as persisted. Araceli Doyle MD [address], [place], [address], [place] [facility] - [place] 07/19/2025 11:47:28 08/02/2025 text/html Kaylee Cox is a 60-year-old female who presents [...] She passed out again shortly thereafter. Her [id number], a nurse, assessed her via FaceTime and [...] states that her urinary issues have resolved. Araceli Doyle MD [address], [place], [address], [facility] - [facility] & [place] 08/02/2025 12:55:17 09/06/2025 text/html Kaylee Cox is a 60-year-old female who presents for a hospital follow-up. She was recently hospitalized at [facility] and subsequently transferred to another facility. During [...] She is awaiting an appointment with her pantograph machine operator, Katrina Dennis, at [facility], which was rescheduled due to her hospitalization. The patient has been on venlafaxine for anxiety for many years and is exploring the impact of nutrition and supplementation on her mental health. She is also seeing a urologist for additional concerns. Albert Vasquez MD [address], [place], [address], [place] [facility] & [place] 09/06/2025 13:05:16 OBGyn Episode No OBEpisode recorded.
[2025-09-14] MEDS: 0.9 % SODIUM CHLORIDE 1000ML 1,000 ML 999 ML IV (14:57)
[2025-09-14] MEDS: humaLOG 100 UNITS/ML 10ML VIAL (SSI) SUBCUT ×2 (17:27→21:15)
--- NOTE | 2025-09-14 17:54 | ECG_ITS ---
APPROVED REPORT Exam: Resting ECG HR:66 bpm ECG Measurements Heart Rate 66 AXES KS 165 P 54 QRSd 93 QRS 14 QT 421 T 62 QTc 434 Conclusion SINUS RHYTHM POSSIBLE ANTERIOR MYOCARDIAL INFARCTION , PROBABLY OLD [30 ms Q WAVE IN V3/V4, OR R < 0.2 mV IN V4] BORDERLINE ECG UNCONFIRMED REPORT Electronically signed by : Shubham Horton MD 09/18/2025 08:42:45
[2025-09-14] MEDS: AMIODARONE 200MG TABLET 400 MG PO (18:55)
[2025-09-14] MEDS: ATORVASTATIN 40MG TABLET 80 MG PO (21:15)
[2025-09-15] VITALS (25 sets, daily range): BP systolic 103–205; BP diastolic 50–91; PULSE 66–84; RESP 12–24; TEMP 36.5–36.7; O2SAT 93–99; BMI 24.7
[2025-09-15] MEDS: CEFTRIAXONE 1 GM 1 GM in 0.9 % SODIUM CHLORIDE 50 ML IV (05:25)
[2025-09-15 06:04] LABS: Hematocrit 30.4 % (37.0-47.0); Immature Granulocytes % 0.2 %; Mean Corpuscular HGB Conc 33.6 g/dL (31.8-35.4); Mean Corpuscular Hemoglobin 32.1 pg (27.0-31.2); Mean Corpuscular Volume 95.6 fl (81-99); Nucleated Red Blood Cells % 0 %; Platelet Count 218 K/mm3 (142-424); Red Blood Count 3.18 M/mm3 (4.20-5.40); Red Cell Distribution Width-SD 47.8 fL; White Blood Count 4.2 K/mm3 (4.8-10.8)
[2025-09-15 06:11] LABS: Albumin Level 3.9 g/dl (3.5-5.0); Chloride 106 mmol/L (98-107); Potassium 3.7 mmoL/L (3.5-5.1); Sodium 136 mmol/L (136-145)
[2025-09-15 06:14] LABS: Alanine Aminotransferase 242 U/L (12-78); Albumin/Globulin Ratio 1.8 (1.1-1.8); Alkaline Phosphatase 169 U/L (38-126); Anion Gap 6.7 mEq/L (5-15); Aspartate Amino Transferase 105 U/L (14-36); Bilirubin,Total 0.4 mg/dl (0.2-1.3); Carbon Dioxide 27 mmol/L (22.0-30.0); Globulin 2.2 g/dL (1.3-3.2); Total Protein,Serum 6.1 g/dl (6.3-8.2)
[2025-09-15 06:15] LABS: Calcium 8.4 mg/dl (8.4-10.2); Glucose 105 mg/dl (74-100)
[2025-09-15 06:16] LABS: Hemoglobin 10.2 g/dL (12.2-16.2); INR 1.03 (0.9-1.1); Prothrombin Time 11.4 seconds (10.1-12.5)
[2025-09-15] MEDS: ONDANSETRON 4MG/2ML VIAL 4 MG IV (07:11)
[2025-09-15 07:20] LABS: Creatinine Clearance Estimated 68 mL/min (50-200); Creatinine,Serum 0.90 mg/dl (0.52-1.04); Estimated Glomerular Filt Rate 63 ml/min (>60); GFR (African American) 77 ML/MIN (>60)
[2025-09-15] MEDS: CLOPIDOGREL 75MG TAB 75 MG PO (08:45)
[2025-09-15] MEDS: ASPIRIN EC 81MG TABLET 81 MG PO (08:45)
[2025-09-15] MEDS: DAPAGLIFLOZIN PROPANEDIOL 10 MG TABLET 5 MG PO (08:45)
[2025-09-15] MEDS: AMIODARONE 200MG TABLET 400 MG PO (09:13)
[2025-09-15] MEDS: METOPROLOL TARTRATE 25MG TABLET 12.5 MG PO ×2 (09:37→11:57)
--- NOTE | 2025-09-15 09:51 | P.DS_ITS ---
<Statement entered by Beto Hall MD - 09/15/25 16:30> Discussed with cardiology, Dr. Montesinos, s/p [facility] today reveals severe coronary disease not amenable to stenting. Dr. Montesinos recommends CABG with maze procedure, contacted Dr. Ridley who graciously accepted patient for transfer to [facility]. Patient will be transported in guarded condition. Continue heparin drip, Amiodarone 400 mg twice daily, aspirin 81 mg. Rest of plan as outlined by the MOWER MECHANIC below. ANGIOGRAPHIC RESULTS The left main artery Normal The left anterior descending artery Proximally normal with mid vessel 40 to 50% stenosis. A medium sized first diagonal artery has an ostial proximal 80 to 90% concentric stenosis The circumflex artery Nondominant and has mid vessel greater than 90% calcified stenosis The right coronary artery Large dominant with mid vessel 50% and a distal eccentric 70 to 80% stenosis which then gives rise to a large posterior descending artery which has minimal disease. A large posterior lateral branch has an ostial 70% stenosis which extends into a focal 90% proximal stenosis with a large amount of myocardium supplied distally The LACKEY ventriculogram reveals Hyperdynamic 70% The left ventricular end-diastolic pressure 20 mmHg IMPRESSION Atrial fibrillation likely ischemically mediated Coronary artery disease as described above Hyperdynamic ventricle Elevated LVEDP Known carotid artery disease General Admission date:: 09/14/25 Discharge date: 09/15/25 HPI HPI HPI: Patient is a 60-year-old female with past medical history significant for TIA, occlusion of left internal carotid artery, type 2 diabetes mellitus, hypertension, bladder prolapse with recurrent UTI. Presents to [facility] due to nausea, vomiting and near syncopal episodes. Patient states earlier in the day while with her in the car, she developed an overwhelming feeling of nausea and ultimately multiple episodes of emesis. P atient states when they arrived home she immediately went to the bathroom. While walking to the bathroom she began to feel extremely lightheaded and weak. Reports she did not pass out, but felt as though she was going to. Her was present during episode and was able to lower her to the ground safely. Has been noted this occurred a couple times. States she ultimately laid on the ground to relieve symptoms. Per has been discussed with patient's neurologist and recommended following up to [facility] as it is the closest. EMS was notified and she was transferred to our facility. Initial assessment per EMS stated patient was hypoxic on their arrival along with atrial fibrillation finding. They placed her on 2 L nasal cannula and transferred to our facility. H mentioned she has had poor fluid intake over the last several days and was concerned for dehydration after multiple vomiting episodes throughout the day. Patient states that she had a mild headache on arrival. Upon assessment of patient at bedside, she was without acute distress, resting in bed. Denies fever, chills, chest pain, diarrhea. ED workup included laboratory studies and imaging. Significant laboratory findings included sodium 133, BUN 30, creatinine 1.10, GFR 50, glucose 210, AST 151, ALT 362, alkaline phosphatase 247, BNP 190. PCR panel unremarkable/negative. CTA head and neck showing occluded left ICA with reconstitution of flow in the JERMAINE and MCA above the clinoid. Chest CTA: Unremarkable. Abdomen/pelvis CT: 7.8 mm appendix but no significant surrounding inflammatory changes. These findings could indicate early acute appendicitis. Hospital Course Hospital Course Hospital Course: Ms. Cox is a 60-year-old female with a past medical history of left internal carotid artery occlusion, TIA, diabetes mellitus, type II, hypertension, bladder prolapse with recurrent UTI. She presented to the emergency department on 09/14/2025 with complaints of nausea, vomiting, lightheadedness, weakness. Workup in the emergency department showed the patient was in atrial fibrillation, new onset. Patient was also hypoxic and was placed on 2 L nasal cannula per patient and she has had very poor p.o. intake and they feel she is probably dehydrated. Workup in the ED was significant for occluded left ICA with reconstitution of flow, elevated troponin, elevated LFTs, and A-fib with RVR heart rate between 150?160. Patient was started on a diltiazem drip in the ED for rate control and patient was admitted to the ICU. Continued workup during admission showed troponin continuing to trend upward, initial 0.06 trending upward to 0.83. Patient remained on diltiazem drip yesterday and converted around 6 PM. Patient initially wanted to transfer to [facility] where her neurologist, Dr. Yun is but after some discussion She was agreeable to [facility] for her non-STEMI. #NSTEMI #S/p C #Atrial fib with RVR ? Plans for left heart cath today. Patient echo reassuring with LV EF of 70% with normal BiV function. Patient denies chest pain or shortness of breath. Patient was able to convert to NSR yesterday evening, transitioned off the diltiazem drip to amiodarone 400 mg twice daily and Toprol tartrate 12.5 mg twice daily. Lovenox 1 aguilar/keg during admission, will transition to Eliquis 5 mg twice daily at discharge. Patient will stop lisinopril, Farxiga, and Coreg. ?Per patient's neurologist it is very important to avoid hypotension, systolic pressure should remain above 120. ?Patient should follow-up with cardiology in approximately 1 week postdischarge for monitoring of medication use and blood pressure. ?On admission patient complained of dizziness, lightheadedness. Likely related to dehydration and new onset A-fib. Patient does not complain of any dizziness/lightheadedness during admission. ?Lab work day of discharge reassuring, no electrolyte abnormalities, normal kidney function, WBC 4.2, hemoglobin stable 10.2. ?Cardiac medication changes per cardiology. #Urinary tract infection ? Patient complains of dysuria and foul-smelling urine. Patient urinalysis positive for 1+ blood and 1+ leuk esterase. Patient urine culture shows greater than 100,000 gram-negative rods. Patient currently receiving ceftriaxone 1 g daily, will transition to cefdinir twice daily at discharge. ?Patient currently on Farxiga 5 mg daily, SGLT?2 contraindicated in bladder prolapse/recurrent urinary tract infection. Patient should hold medication and follow-up with PCP for further recommendations. #Transaminitis ? Patient initial LFTs elevated on admission. Likely in the setting of dehydration. Patient's LFTs continue to trend downward, patient should have these monitored at PCP follow-up. #Diabetes mellitus, insulin-dependent ? Patient is insulin-dependent type 2 diabetic, insulin glargine 40 units subcu in the morning, 20 units in the evening. A1c is pending. Continue Mounjaro 7.5 mg weekly. Patient should continue chronic medications of: Venlafaxine 75 mg daily, tamsulosin 0.4 mg daily, ezetimbe 10 mg, Plavix 75 mg daily, aspirin 81 mg daily, atorvastatin 80 mg daily. Total time spent on discharge 32 minutes in counseling, documentation, chart review, and direct care with patient. Exam Data for Last 24 hours Vital signs and Labs for Last 24 Hours: Temp Pulse Resp BP Pulse Ox O2 Del Method O2 Flow Rate 97.7 F 74 16 162/73 H 97 Room Air 97 09/15/25 08:00 09/15/25 08:00 09/15/25 08:00 09/15/25 08:00 09/15/25 08:00 09/15/25 08:00 09/15/25 06:46 Laboratory Results - last 24 hr 09/14/25 03:30: Urine Color Yellow, Urine Appearance Cloudy, Urine pH 5.5, Ur Specific Whiting 1.015, Urine Protein 2+ A, Urine Glucose (UA) 1+, Urine Ketones Trace, Urine Blood Trace-l, Urine Nitrate Negative, Urine Bilirubin Negative, Ur ine Urobilinogen 0.2, Ur Leukocyte Esterase 1+ A, Urine RBC 3-5, Urine WBC 20- 50, Ur Squamous Epith Cells 3-5, Urine Bacteria 3+, Urine Opiates Screen Negative, Urine Methadone Screen Negative, Ur Barbituates Screen Negative, Ur Phencyclidine Scrn Negative, Ur Amphetamines Screen Negative, U Benzodiazepines Scrn Negative, Urine Cocaine Screen Negative, U Marijuana (THC) Screen Negative 09/14/25 08:16: Creatinine 1.00, Estimated Creat Clear 68, Estimated GFR 56 L, Est GFR ( Amer) 68 09/14/25 10:38: POC Glucose 131 H 09/15/25 04:45: WBC 4.2 L D, RBC 3.18 L, Hgb 10.2 L D, Hct 30.4 L, MCV 95.6, MCH 32.1 H, MCHC 33.6, RDW 13.6, Plt Count 218, MPV 11.1 H, Neut % (Auto) 57.9, Lymph % (Auto) 33.2, Andrews % (Auto) 8.2, Eos % (Auto) 0.0 L, Baso % (Auto) 0.5, Neut # (Auto) 2.4, Lymph # (Auto) 1.4, Andrews # (Auto) 0.3, Eos # (Auto) 0.0, Baso # (Auto) 0.0, PT 11.4, INR 1.03, Sodium 136, Potassium 3.7, Chloride 106, Carbon Dioxide 27, Anion Gap 6.7, Creatinine 0.90, Estimated Creat Clear 68, Estimated GFR 63, Est GFR ( Amer) 77, Glucose 105 H D, Calcium 8.4, Total Bilirubin 0.4, AST 105 H, ALT 242 H, Alkaline Phosphatase 169 H, Total Protein 6.1 L, Albumin 3.9 D, Globulin 2.2, Albumin/Globulin Ratio 1.8 Temp Pulse Resp BP Pulse Ox O2 Del Method O2 Flow Rate 97.6 F 91 H 16 116/63 99 Room Air 2 09/14/25 08:01 09/14/25 13:10 09/14/25 13:10 09/14/25 13:10 09/14/25 13:10 09/14/25 13:10 09/14/25 07:01 Laboratory Results - last 24 hr 09/13/25 23:52: VBG pH 7.33, VBG pCO2 47.1, VBG pO2 33.2, VBG HCO3 24.3, VBG Total CO2 25.8, VBG O2 Saturation 58.2, VBG Base Excess -1.6, VBG Lactic Acid 1.6 09/13/25 23:58: WBC 8.3, RBC 3.83 L, Hgb 11.8 L, Hct 36.4 L, MCV 95.0, MCH 30.8, MCHC 32.4, RDW 13.6, Plt Count 255, MPV 10.8 H, Neut % (Auto) 75.5, Lymph % (Auto) 18.7, Andrews % (Auto) 5.3, Eos % (Auto) 0.0 L, Baso % (Auto) 0.1, Neut # (Auto) 6.3, Lymph # (Auto) 1.6, Andrews # (Auto) 0.4, Eos # (Auto) 0.0, Baso # (Auto) 0.0, Sodium 133 L, Potassium 4.7, Chloride 99, Carbon Dioxide 26, Anion Gap 12.7, BUN 30 H, Creatinine 1.10 H, Estimated Creat Clear 61, Estimated GFR 50 L, Est GFR ( Amer) 61, Glucose 210 H, Calcium 9.5, Total Bilirubin 0.9, AST 151 H, ALT 362 H*, Alkaline Phosphatase 247 H, Troponin I 0.06 H, NT-Pro-B Natriuret Pep 190 H, Total Protein 8.1, Albumin 3.7, Globulin 4.4 H, Albumin/Globulin Ratio 0.8 L, Lipase 208, Plasma/Serum Alcohol < 10 09/14/25 01:02: Chlamy pneumoniae PCR Not detected, Adenovirus (PCR) Not detected, B. pertussis DNA (PCR) Not detected, Coronavirus OC43 (PCR) Not detected, Coronavirus HKU1 (PCR) Not detected, Coronavirus 229E (PCR) Not detected, SARS-CoV-2 (PCR) Not detected, Coronavirus NL63 (PCR) Not detected, Human Metapneumovir PCR Not detected, Influenza A (H1) PCR Not detected, Influ A (H1N1/09) PCR Not detected, Influenza A (H3) PCR Not detected, Influenza Type A (PCR) Not detected, Influenza Type B (PCR) Not detected, M. pneumoniae (PCR) Not detected, Parainfluenza 1 (PCR) Not detected, Parainfluenza 2 (PCR) Not detected, Parainfluenza 3 (PCR) Not detected, Parainfluenza 4 (PCR) Not detected, RSV (PCR) Not detected, Entero/Rhino (PCR) Not detected 09/14/25 03:08: Troponin I 0.28 H 09/14/25 03:30: Urine Color Yellow, Urine Appearance Cloudy, Urine pH 5.5, Ur Specific Whiting 1.015, Urine Protein 2+ A, Urine Glucose (UA) 1+, Urine Ketones Trace, Urine Blood Trace-l, Urine Nitrate Negative, Urine Bilirubin Negative, Urine Urobilinogen 0.2, Ur Leukocyte Esterase 1+ A, Urine RBC 3-5, Urine WBC 20- 50, Ur Squamous Epith Cells 3-5, Urine Bacteria 3+, Urine Opiates Screen Negative, Urine Methadone Screen Negative, Ur Barbituates Screen Negative, Ur Phencyclidine Scrn Negative, Ur Amphetamines Screen Negative, U Benzodiazepines Scrn Negative, Urine Cocaine Screen Negative, U Marijuana (THC) Screen Negative 09/14/25 08:16: WBC 7.3, RBC 3.63 L, Hgb 11.4 L, Hct 34.1 L, MCV 93.9, MCH 31.4 H, MCHC 33.4, RDW 13.6, Plt Count 240, MPV 10.6 H, Neut % (Auto) 66.3, Lymph % (Auto) 25.9, Andrews % (Auto) 7.4, Eos % (Auto) 0.0 L, Baso % (Auto) 0.1, Neut # (Auto) 4.8, Lymph # (Auto) 1.9, Andrews # (Auto) 0.5, Eos # (Auto) 0.0, Baso # (Auto) 0.0, Sodium 132 L, Potassium 4.5, Chloride 101, Carbon Dioxide 28, Anion Gap 7.5, BUN 25 H, Creatinine 1.00, Estimated Creat Clear 68, Estimated GFR 56 L , Est GFR ( Amer) 68, Glucose 142 H D, Calcium 8.9, Magnesium 2.0, Total Bilirubin 0.5, AST 93 H D, ALT 271 H D, Alkaline Phosphatase 184 H, Troponin I 0.83 H, Total Protein 6.8, Albumin 2.9 L D, Globulin 3.9 H, Albumin/Globulin Ratio 0.7 L, Procalcitonin 0.062 09/14/25 10:38: POC Glucose 131 H I & O for Last 24 hours: Intake & Output 09/12/25 09/13/25 09/14/25 09/15/25 23:59 23:59 23:59 23:59 Intake Total 3745.250 / 3745.250 50 / 50 Output Total 1950 / 2750 1600 / 1600 Balance 1795.250 / 995.250 -1550 / -1550 Weight 74.2 kg 74 kg Intake & Output 09/11/25 09/12/25 09/13/25 09/14/25 23:59 23:59 23:59 23:59 Intake Total 2385.250 / 2385.250 Output Total 1150 / 1150 Balance 1235.250 / 1235.250 Weight 163 lb 9.328 oz Microbiology Reports for the Last 24 Hours: Microbiology 09/14/25 02:55 Anus CRE Surveillance Culture - Final Negative 09/14/25 03:30 Urine,Clean Catch Urine Culture - Preliminary Gram Negative Rods Constitutional Constitutional: no acute distress, average body habitus and cooperative *Routine HEENT Exam Head: Present normocephalic Eye: Present PERRL ENT: Present mucous membranes moist *Routine Neck Exam Neck: Present supple and full ROM *Routine Respiratory Exam Respiratory: Present CTA bilaterally and normal respiratory effort; Absent accessory muscle use, wheezes or crackles *Routine Cardiovascular Exam Cardiovascular: Present RRR and irregularly irregular; Absent murmur, gallop or rubs *Routine Abdominal Exam Abdominal: Present soft and normoactive bowel sounds; Absent tenderness *Routine Rectal Exam Patient deferred: visual exam *Routine Exam Patient deferred: external exam *Routine Extremities Exam Extremities: Present full ROM, pulses intact and normal capillary refill; Absent cyanosis or edema *Routine Skin Exam Skin: Present intact; Absent erythema or wounds *Routine Neurological Exam Neurological: Present alert, oriented X3, vision grossly intact, hearing grossly intact and normal speech Routine Psychiatric Exam Psychiatric: Present cooperative Results Data Completed and Pending Labs on day of discharge: Labs from last 24 hours 09/15/25 09/14/25 09/14/25 04:45 10:38 08:16 WBC 4.2 L D RBC 3.18 L Hgb 10.2 L D Hct 30.4 L MCV 95.6 MCH 32.1 H MCHC 33.6 RDW 13.6 Plt Count 218 MPV 11.1 H Neut % (Auto) 57.9 Lymph % (Auto) 33.2 Andrews % (Auto) 8.2 Eos % (Auto) 0.0 L Baso % (Auto) 0.5 Neut # (Auto) 2.4 Lymph # (Auto) 1.4 Andrews # (Auto) 0.3 Eos # (Auto) 0.0 Baso # (Auto) 0.0 PT 11.4 INR 1.03 Sodium 136 Potassium 3.7 Chloride 106 Carbon Dioxide 27 Anion Gap 6.7 Creatinine 0.90 1.00 Estimated Creat Clear 68 68 Estimated GFR 63 56 L Est GFR ( Amer) 77 68 Glucose 105 H D POC Glucose 131 H Calcium 8.4 Total Bilirubin 0.4 AST 105 H ALT 242 H Alkaline Phosphatase 169 H Total Protein 6.1 L Albumin 3.9 D Globulin 2.2 Albumin/Globulin Ratio 1.8 Urine Color Urine Appearance Urine pH Ur Specific Whiting Urine Protein Urine Glucose (UA) Urine Ketones Urine Blood Urine Nitrate Urine Bilirubin Urine Urobilinogen Ur Leukocyte Esterase Urine RBC Urine WBC Ur Squamous Epith Cells Urine Bacteria Urine Opiates Screen Urine Methadone Screen Ur Barbituates Screen Ur Phencyclidine Scrn Ur Amphetamines Screen U Benzodiazepines Scrn Urine Cocaine Screen U Marijuana (THC) Screen 09/14/25 03:30 WBC RBC Hgb Hct MCV MCH MCHC RDW Plt Count MPV Neut % (Auto) Lymph % (Auto) Andrews % (Auto) Eos % (Auto) Baso % (Auto) Neut # (Auto) Lymph # (Auto) Andrews # (Auto) Eos # (Auto) Baso # (Auto) PT INR Sodium Potassium Chloride Carbon Dioxide Anion Gap Creatinine Estimated Creat Clear Estimated GFR Est GFR ( Amer) Glucose POC Glucose Calcium Total Bilirubin AST ALT Alkaline Phosphatase Total Protein Albumin Globulin Albumin/Globulin Ratio Urine Color Yellow Urine Appearance Cloudy Urine pH 5.5 Ur Specific Whiting 1.015 Urine Protein 2+ A Urine Glucose (UA) 1+ Urine Ketones Trace Urine Blood Trace-l Urine Nitrate Negative Urine Bilirubin Negative Urine Urobilinogen 0.2 Ur Leukocyte Esterase 1+ A Urine RBC 3-5 Urine WBC 20-50 Ur Squamous Epith Cells 3-5 Urine Bacteria 3+ Urine Opiates Screen Negative Urine Methadone Screen Negative Ur Barbituates Screen Negative Ur Phencyclidine Scrn Negative Ur Amphetamines Screen Negative U Benzodiazepines Scrn Negative Urine Cocaine Screen Negative U Marijuana (THC) Screen Negative Preliminary micro results at discharge 09/14/25 03:30 Urine Culture - Preliminary Urine,Clean Catch Gram Negative Rods DS: Diagnosis Discharge Diagnosis (1) Atrial fibrillation with RVR: Status: Acute Code(s): I48.91 - Unspecified atrial fibrillation (2) Elevated troponin: Status: Acute Code(s): R79.89 - Other specified abnormal findings of blood chemistry (3) Nausea & vomiting: Status: Acute Code(s): R11.2 - Nausea with vomiting, unspecified Qualifiers: Vomiting type: unspecified Qualified Code(s): R11.2 - Nausea with vomiting, unspecified (4) Poor fluid intake: Status: Acute Code(s): R63.8 - Other symptoms and signs concerning food and fluid intake (5) Postural dizziness with near syncope: Status: Acute Code(s): R42 - Dizziness and giddiness; R55 - Syncope and collapse (6) Transaminitis: Status: Acute Code(s): R74.01 - Elevation of levels of liver transaminase levels (7) KONSTANTIN (acute kidney injury): Status: Acute Code(s): N17.9 - Acute kidney failure, unspecified (8) TIA (transient ischemic attack): Status: Acute Code(s): G45.9 - Transient cerebral ischemic attack, unspecified (9) Diabetes mellitus, type 2: Status: Acute Code(s): E11.9 - Type 2 diabetes mellitus without complications Qualifiers: Diabetes mellitus buttermaker helper insulin use: without mcfp use (10) Hypertension: Status: Acute Code(s): I10 - Essential (primary) hypertension Qualifiers: Hypertension type: unspecified Qualified Code(s): I10 - Essential (primary) hypertension (11) Recurrent urinary tract infection: Status: Acute Code(s): N39.0 - Urinary tract infection, site not specified Meds Home Medications and Allergies Home Medications ?Medication ?Instructions ?Recorded ?Confirmed ?Type aspirin 81 mg chewable tablet 81 mg PO DAILY 09/14/25 09/14/25 History atorvastatin 80 mg tablet 80 mg PO HS 09/14/25 History bethanechol chloride 10 mg tablet 10 mg PO TID 09/14/25 History clopidogrel 75 mg tablet 75 mg PO DAILY 09/14/2508/18 History diphenhydramine HCl 25 mg capsule 25 mg PO BID 09/14/25 History (Benadryl) ezetimibe 10 mg tablet 10 mg PO DAILY 09/14/2508/18 History insulin glargine 100 unit/mL (3 20 unit SQ PM 09/14/25 09/14/25 History mL) subcutaneous pen (Basaglar KwikPen U-100 Insulin) insulin glargine 100 unit/mL (3 40 unit SQ AM 09/14/25 09/14/25 History mL) subcutaneous pen (Basaglar KwikPen U-100 Insulin) tamsulosin 0.4 mg capsule 0.4 mg PO DAILY 09/14/25 History tirzepatide 7.5 mg/0.5 mL 7.5 mg SQ WEEKLY 09/14/25 History subcutaneous pen injector (Mounjaro) venlafaxine 75 mg capsule,extended 75 mg PO DAILY 08/1809/14/25 History release 24 hr amiodarone 200 mg tablet 400 mg (2 x 200 mg) PO BID 3 0 days 09/15/25 Rx #120 tabs apixaban 5 mg tablet (Eliquis) 5 mg PO BID #60 tabs Rx metoprolol tartrate 25 mg tablet 12.5 mg (1/2 x 25 mg) PO BID 30 09/15/25 Rx days #30 tabs New Prescriptions to Start Prescriptions: amiodarone Evelyn Darden apixaban [Eliquis] Evelyn Darden metoprolol tartrate Evelyn Darden Allergies Allergy/AdvReac Type Severity Reaction Status Date / Time codeine Allergy Verified 12/25/20 13:29 Sulfa (Sulfonamide Allergy Verified 12/25/20 13:29 Antibiotics) Discharge Plan Disposition Patient Disposition: Home, Self-Care Condition: Good Follow up Plan Follow up with: Araceli Doyle MD [Referring, Family Practice] - Enter time for follow up Jaret Boo PA [Physician Valet Runner, Cardiology] - Enter time for follow up Maulik Yun III, MD [Referring, Neurosurgery] - Enter time for follow up Prescriptions/Medication Reconciliation: New amiodarone 200 mg Tablet 400 mg PO BID 30 Days Qty: 120 0RF metoprolol tartrate 25 mg Tablet 12.5 mg PO BID 30 Days Qty: 30 0RF Eliquis 5 mg tablet 5 mg PO BID Qty: 60 0RF Continued atorvastatin 80 mg tablet 80 mg PO HS clopidogrel 75 mg tablet 75 mg PO DAILY Patient Comments: TAKE 1 TABLET BY MOUTH ONCE DAILY aspirin 81 mg tablet,chewable 81 mg PO DAILY Patient Comments: CHEW AND SWALLOW 1 TABLET BY MOUTH ONCE DAILY insulin glargine [Basaglar KwikPen U-100 Insulin] 100 unit/mL (3 mL) insulin pen 40 unit SQ AM Patient Comments: INJECT 48 UNITS SUBCUTANEOUSLY ONCE DAILY insulin glargine [Basaglar KwikPen U-100 Insulin] 100 unit/mL (3 mL) insulin pen 20 unit SQ PM Patient Comments: INJECT 48 UNITS SUBCUTANEOUSLY ONCE DAILY diphenhydramine HCl [Benadryl] 25 mg Capsule 25 mg PO BID venlafaxine 75 mg capsule,extended release 24hr 75 mg PO DAILY Patient Comments: TAKE 1 CAPSULE BY MOUTH ONCE DAILY bethanechol chloride 10 mg tablet 10 mg PO TID tamsulosin 0.4 mg capsule 0.4 mg PO DAILY ezetimibe 10 mg tablet 10 mg PO DAILY Patient Comments: TAKE 1 TABLET BY MOUTH ONCE DAILY Mounjaro 7.5 mg/0.5 mL pen injector 7.5 mg SQ WEEKLY Patient Comments: INJECT 1 SYRINGE SUBCUTANEOUSLY ONCE A WEEK Discontinued carvedilol 12.5 mg tablet 12.5 mg PO BID Patient Comments: TAKE 1 TABLET BY MOUTH TWICE DAILY WITH MEALS dapagliflozin propanediol 5 mg tablet 5 mg PO DAILY Patient Comments: TAKE 1 TABLET BY MOUTH ONCE DAILY lisinopril 10 mg tablet 10 mg PO DAILY Patient Comments: TAKE 1 TABLET BY MOUTH ONCE DAILY Problem Reconciliation Problems Reviewed?: Yes Patient Discharge Instructions ACTIVITY: No heavy lifting DIET: cardiac Print Language: Azeri Providers Primary Care Provider: Provider,Referral Admit Provider: Beto Hall Attending Provider: Beto Hall
[2025-09-15 10:10] LABS: Blood Urea Nitrogen 21 mg/dl (7-17)
--- NOTE | 2025-09-15 11:06 | P.PN_ITS ---
Subjective Subjective Date: 09/15/25 Time: 09:30 Interval history: Patient converted to sinus rhythm around 5:30 PM yesterday. She was started on p.o. amiodarone 400 mg twice daily. She was stable to the night with no hypotension. She had a vagal episode with heart rate dropping to 30s this morning while she was nauseous and diaphoretic. Otherwise feeling well and ready to proceed with heart cath. Exam Data for Last 24 hours Vital signs and Labs for Last 24 Hours: Temp Pulse Resp BP Pulse Ox O2 Del Method O2 Flow Rate 97.7 F 84 17 167/81 H 98 Room Air 97 09/15/25 08:00 09/15/25 10:00 09/15/25 10:00 09/15/25 10:00 09/15/25 10:00 09/15/25 10:00 09/15/25 06:46 Laboratory Results - last 24 hr 09/14/25 03:30: Urine Color Yellow, Urine Appearance Cloudy, Urine pH 5.5, Ur Specific [place] 1.015, Urine Protein 2+ A, Urine Glucose (UA) 1+, Urine Ketones Trace, Urine Blood Trace-l, Urine Nitrate Negative, Urine Bilirubin Negative, Urine Urobilinogen 0.2, Ur Leukocyte Esterase 1+ A, Urine RBC 3-5, Urine WBC 20- 50, Ur Squamous Epith Cells 3-5, Urine Bacteria 3+, Urine Opiates Screen Negative, Urine Methadone Screen Negative, Ur Barbituates Screen Negative, Ur Phencyclidine Scrn Negative, Ur Amphetamines Screen Negative, U Benzodiazepines Scrn Negative, Urine Cocaine Screen Negative, U Marijuana (THC) Screen Negative 09/15/25 04:45: WBC 4.2 L D, RBC 3.18 L, Hgb 10.2 L D, Hct 30.4 L, MCV 95.6, MCH 32.1 H, MCHC 33.6, RDW 13.6, Plt Count 218, MPV 11.1 H, Neut % (Auto) 57.9, Lymph % (Auto) 33.2, [place] % (Auto) 8.2, Eos % (Auto) 0.0 L, Baso % (Auto) 0.5, Neut # (Auto) 2.4, Lymph # (Auto) 1.4, [place] # (Auto) 0.3, Eos # (Auto) 0.0, Baso # (Auto) 0.0, PT 11.4, INR 1.03, Sodium 136, Potassium 3.7, Chloride 106, Carbon Dioxide 27, Anion Gap 6.7, BUN 21 H, Creatinine 0.90, Estimated Creat Clear 68, Estimated GFR 63, Est GFR ( Amer) 77, Glucose 105 H D, Calcium 8.4, Total Bilirubin 0.4, AST 105 H, ALT 242 H, Alkaline Phosphatase 169 H, Total Protein 6.1 L, Albumin 3.9 D, Globulin 2.2, Albumin/Globulin Ratio 1.8 I & O for Last 24 hours: Intake & Output 09/12/25 09/13/25 09/14/25 09/15/25 23:59 23:59 23:59 23:59 Intake Total 3745.250 / 3745.250 50 / 50 Output Total 1950 / 2750 1600 / 1600 Balance 1795.250 / 995.250 -1550 / -1550 Weight 163 lb 9.328 oz 163 lb 2.273 oz Microbiology Reports for the Last 24 Hours: Microbiology 09/14/25 02:55 Anus CRE Surveillance Culture - Final Negative 09/14/25 03:30 Urine,Clean Catch Urine Culture - Preliminary Gram Negative Rods Constitutional Constitutional: no acute distress and cooperative *Routine HEENT Exam Eye: Present PERRL *Routine Respiratory Exam Respiratory: Present CTA bilaterally; Absent accessory muscle use, wheezes or crackles *Routine Cardiovascular Exam Cardiovascular: Present RRR, Normal S1 and Normal S2; Absent murmur, gallop or rubs *Routine Abdominal Exam Abdominal: Present soft; Absent tenderness *Routine Extremities Exam Extremities: Present pulses intact; Absent cyanosis or edema *Routine Skin Exam Skin: Present intact; Absent erythema or wounds *Routine Neurological Exam Neurological: Present alert and oriented X3 Routine Psychiatric Exam Psychiatric: Present cooperative Progress Note: A&P Assessment and plan (1) Atrial fibrillation with RVR: Status: Acute (2) Elevated troponin: Status: Acute (3) Nausea & vomiting: Status: Acute (4) Poor fluid intake: Status: Acute (5) Postural dizziness with near syncope: Status: Acute (6) Transaminitis: Status: Acute (7) KONSTANTIN (acute kidney injury): Status: Acute (8) TIA (transient ischemic attack): Status: Acute (9) Diabetes mellitus, type 2: Status: Acute (10) Hypertension: Status: Acute (11) Recurrent urinary tract infection: Status: Acute Assessment and Plan Assessment and Plan for All Diagnoses:: A-fib RVR - new dx this admission in setting of N/V/dehydration - continue rate control efforts with IV Cardizem - continue Lovenox, transition to Eliquis post procedure - 09/15: pt converted to SR and started on PO Amio late yesterday. Continue this at discharge with 2 week heart monitor NSTEMI - new dx this admission with rising serial troponin, new A-fib, and N/V, chest discomfort - no ST elevation - normal Bi-V function on 2D ECHO - cont DAPT, BB, Statin - 09/15: [facility] today Severe/Critical Left Intracranial carotid artery disease - nearly occluded per Neurosurgery, considering angioplasty/stenting in the future - Per Dr. Yun, Neurosurgeon at [facility] - avoid hypotension, continue DAPT, he will see her post discharge. No indication for transfer. - 09/15: stable on DAPT, Statin. Avoid hypotension. DM-II - was poorly controlled with A1C 10-12 for a decade - now A1C <6 - consider GLP-1 later - no SGLT-2 due to recurrent UTI - glucose control per hospitalist N/V/Dehydration - symptoms improving - continue hydration - give 1L NS - 09/15: mild recurrence this morning, better with promethazine Prolapsed bladder with recurrent UTI - avoid SGLT-2 - defer workup to primary service CV stable, further plans pending [facility] results.
[2025-09-15 11:35] LABS: Cholesterol 141 mg/dl (140-200); Triglycerides 153 mg/dl (30-150)
[2025-09-15 11:36] LABS: HDL Cholesterol 27 mg/dl (40-60)
--- NOTE | 2025-09-15 12:09 | IR_ITS ---
APPROVED REPORT Patient Location: Inpatient PROCEDURES Left heart catheterization Left ventriculogram Selective coronary angiogram INDICATION Acute non-ST elevation myocardial infarction, Atrial fibrillation Informed consent was obtained prior to the procedure. COMPLICATIONS NONE Estimated Blood Loss: LESS THAN 10 ML TECHNIQUE One percent lidocaine used to anesthetize the right anterior aspect of the wrist. The right radial artery was accessed via the Seldinger technique. A 6 [place] sheath was placed in the right radial artery. 2.5 mg of Verapamil, 800 mcg of nitroglycerin, 1mg Lidocaine and 5000 U Heparin were given through the arterial sheath. The JL3 catheter was also used to perform left heart catheterization, left ventriculogram and selective coronary angiogram. At the end of the procedure the sheath was removed good hemostasis was achieved using Traclet band, patient was transferred to the postop holding area in stable condition. ANGIOGRAPHIC RESULTS The left main artery Normal The left anterior descending artery Proximally normal with mid vessel 40 to 50% stenosis. A medium sized first diagonal artery has an ostial proximal 80 to 90% concentric stenosis The circumflex artery Nondominant and has mid vessel greater than 90% calcified stenosis The right coronary artery Large dominant with mid vessel 50% and a distal eccentric 70 to 80% stenosis which then gives rise to a large posterior descending artery which has minimal disease. A large posterior lateral branch has an ostial 70% stenosis which extends into a focal 90% proximal stenosis with a large amount of myocardium supplied distally The [place] ventriculogram reveals Hyperdynamic 70% The left ventricular end-diastolic pressure 20 mmHg IMPRESSION Atrial fibrillation likely ischemically mediated Coronary artery disease as described above Hyperdynamic ventricle Elevated LVEDP Known carotid artery disease PLAN 1. Recommend coronary artery bypass surgery combined with surgical maze procedure 2. Currently the patient is on amiodarone 400 mg p.o. twice daily. Recommend continuing this during the perioperative phase with additional dosing to be determined by CT surgery [facility] 3. Start high intensity statin with a goal LDL less than 55 4. Continue aspirin 81 mg daily 5. Discontinue Lovenox and start patient on heparin drip 6. Discontinue Plavix 7. [facility] CT surgery has been contacted and efforts are being made to transfer patient for CABG during this index hospitalization Electronically signed by : Arash Montesions MD 09/15/2025 13:57:02
[2025-09-15] MEDS: HEPARIN 1,000 UNITS/500ML NS (CATH LAB) 3000 UNIT IV (12:50)
[2025-09-15] MEDS: VERAPAMIL 2.5MG/ML 2ML VIAL 2.5 MG IV (12:50)
[2025-09-15] MEDS: 0.9 % SODIUM CHLORIDE 500 ML 25 ML IV (12:51)
[2025-09-15] MEDS: HEPARIN 1,000 UNITS/ML 10ML VIAL (CATH LAB) 5000 UNIT IV (12:51)
[2025-09-15] MEDS: LIDOCAINE 1% 10ML MDV 10 ML IJ (12:51)
[2025-09-15] MEDS: NITROGLYCERIN 800MCG/8ML SYR (CATH LAB) 800 MCG IA (12:51)
[2025-09-15] MEDS: MIDAZOLAM HCL 1MG/ML 5ML VIAL 1 MG IV (12:52)
[2025-09-15] MEDS: FENTANYL 100MCG/2ML VIAL 50 MCG IV (12:52)
[2025-09-15 12:53] LABS: Hemoglobin A1C 6.2 % (4.0-6.0)
--- NOTE | 2025-09-15 14:24 | HMH.PHAHEP ---
[facility] Pharmacy Heparin Dosing Demographic Data Admission date:: 09/14/25 Date: 09/15/25 Time: 14:24 Allergies Allergy/AdvReac Type Severity Reaction Status Date / Time codeine Allergy Verified 12/25/20 13:29 Sulfa (Sulfonamide Allergy Verified 12/25/20 13:29 Antibiotics) Height: 1.73 m Weight: 74 kg Indication Medication therapy:: Heparin Current Active Problems (Updated 09/19/25 @ 00:00 by Background Daemon) NSTEMI (non-ST elevated myocardial infarction) (Acute) Recurrent urinary tract infection (Acute) Elevated troponin (Acute) Hypertension (Acute) Postural dizziness with near syncope (Acute) 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 (Acute) Diabetes mellitus, type 2 (Acute) TIA (transient ischemic attack) (Acute) Poor fluid intake (Acute) Transaminitis (Acute) Atrial fibrillation with RVR (Acute) CVA?: No Bleeding problem?: No Kidney disease?: No IN?: No Desired PTT range:: 50-75 seconds Labs Anticoagulation Lab Results:: 09/15/25 04:45 Hgb 10.2 L D Hct 30.4 L Plt Count 218 Monitoring Dose Monitor 1: Date: 09/15/25 Time: 14:30 PTT Result:: 43.0 Infusion Rate:: 900 UNITS/HR Core Measures Is INR > or = 2 at discharge?: No Most Recent Labs:: Laboratory Results - last 24 hr 09/14/25 03:30: Urine Color Yellow, Urine Appearance Cloudy, Urine pH 5.5, Ur Specific [place] 1.015, Urine Protein 2+ A, Urine Glucose (UA) 1+, Urine Ketones Trace, Urine Blood Trace-l, Urine Nitrate Negative, Urine Bilirubin Negative, Urine Urobilinogen 0.2, Ur Leukocyte Esterase 1+ A, Urine RBC 3-5, Urine WBC 20-50, Ur Squamous Epith Cells 3-5, Urine Bacteria 3+, Urine Opiates Screen Negative, Urine Methadone Screen Negative, Ur Barbituates Screen Negative, Ur Phencyclidine Scrn Negative, Ur Amphetamines Screen Negative, U Benzodiazepines Scrn Negative, Urine Cocaine Screen Negative, U Marijuana (THC) Screen Negative 09/15/25 04:45: WBC 4.2 L D, RBC 3.18 L, Hgb 10.2 L D, Hct 30.4 L, MCV 95.6, MCH 32.1 H, MCHC 33.6, RDW 13.6, Plt Count 218, MPV 11.1 H, Neut % (Auto) 57.9, Lymph % (Auto) 33.2, [place] % (Auto) 8.2, Eos % (Auto) 0.0 L, Baso % (Auto) 0.5, Neut # (Auto) 2.4, Lymph # (Auto) 1.4, [place] # (Auto) 0.3, Eos # (Auto) 0.0, Baso # (Auto) 0.0, PT 11.4, INR 1.03, Sodium 136, Potassium 3.7, Chloride 106, Carbon Dioxide 27, Anion Gap 6.7, BUN 21 H, Creatinine 0.90, Estimated Creat Clear 68, Estimated GFR 63, Est GFR ( Amer) 77, Glucose 105 H D, Hemoglobin A1c 6.2 H, Calcium 8.4, Total Bilirubin 0.4, AST 105 H, ALT 242 H, Alkaline Phosphatase 169 H, Total Protein 6.1 L, Albumin 3.9 D, Globulin 2.2, Albumin/Globulin Ratio 1.8, Triglycerides 153 H, Cholesterol 141, LDL Cholesterol Direct 64.26 L, VLDL Cholesterol 31, HDL Cholesterol 27 L, Cholesterol/HDL Ratio 5.2 H If INR was < than 2.0 why was therapy stopped?: TRANSFERRED Were Heparin and Warfarin started on the same day?: No If not, why?: TRANSFERRED
[2025-09-15] MEDS: HEPARIN SODIUM,PORCINE/D5W 500 ML 18 UNIT IV (14:47)
[2025-09-15] MEDS: IOPAMIDOL-370 (76%);100ML BOTTLE 80 ML IV (15:02)
[2025-09-15 15:35] LABS: Activated Partial Thrombo Time 43.0 seconds (22.8-30.6); INR 1.01 (0.9-1.1); Prothrombin Time 11.2 seconds (10.1-12.5)
--- NOTE | 2025-09-15 16:51 | PC.NURSE ---
pt approached staff stating that pt has a prolapsed bladder and requires i/o cath 2 times a day. called md and requested strauss cath for pt. strauss inserted by reed milligan, at [phone]
--- NOTE | 2025-09-15 17:11 | PC.NURSE ---
[facility] notified of transfer
--- NOTE | 2025-09-15 18:25 | PC.NURSE ---
1520 A Anurag attempted to remove tracelet, bleeding noted. band reinflated. 1610 2 ml of air removed. no hematoma or bleeding noted 1626 2 ml of air removed. no hematoma or bleeding noted 1643 2 ml of air removed. no hematoma or bleeding noted 1717 2 ml of air removed. no hematoma or bleeding noted 1745 2 ml of air removed. no hematoma or bleeding noted 1800 band removed. site cleaned with chlorhexadine and dressed with t/t
--- NOTE | 2025-09-15 18:28 | PC.NURSE ---
attempted to call report to at 1630. unable to reach receiving RN. 1645 [facility] staff attempted to call for report, this RN unable to come to phone r/t medical emergency on unit. 1715 called report to beth at . 1725 called [facility] to notify of transport to . 1801 pt left for with EMS staff
--- NOTE | 2025-09-17 07:50 | PC.NURSE ---
Urine culture results forwarded to hospitalist.
== END 2025-09-15 18:01 | disposition short-term general hospital (02) | DRG 281 ==
LOC: ER 09-14 02:19 → ICU 09-14 14:09 → 2ND 09-14 14:15
PROVIDERS: Internal Medicine; Nurse Practitioner Acute Care; Admitting Provider Student in an Organized Health Care Education/Training Program; Emergency Provider Emergency Medicine; Visit Provider Student in an Organized Health Care Education/Training Program
PROC: (CPT 93312; principal; 2025-09-15 10:00)
PROC: 4A023N7 Measurement of Cardiac Sampling and Pressure, Left Heart, Percutaneous Approach (ICD-10-PCS; CPT 93452; principal; 2025-09-15 12:15)
DX: I48.91 Unspecified atrial fibrillation (principal); G45.9 Transient cerebral ischemic attack, unspecified; I21.A1 Myocardial infarction type 2; N17.9 Acute kidney failure, unspecified; N39.0 Urinary tract infection, site not specified; I65.22 Occlusion and stenosis of left carotid artery; I25.10 Atherosclerotic heart disease of native coronary artery without angina pectoris; E11.65 Type 2 diabetes mellitus with hyperglycemia; I10 Essential (primary) hypertension; N81.10 Cystocele, unspecified; E86.0 Dehydration; R63.8 Other symptoms and signs concerning food and fluid intake; R74.01 Elevation of levels of liver transaminase levels; R09.02 Hypoxemia; Z79.4 Long term (current) use of insulin; Z79.01 Long term (current) use of anticoagulants; Z79.02 Long term (current) use of antithrombotics/antiplatelets; Z79.82 Long term (current) use of aspirin; Z79.84 Long term (current) use of oral hypoglycemic drugs; Z79.85 Long-term (current) use of injectable non-insulin antidiabetic drugs; Z79.899 Other long term (current) drug therapy; Z88.5 Allergy status to narcotic agent; Z88.2 Allergy status to sulfonamides
CPT/HCPCS: 0223U; 36415; 51702; 70450; 70496; 70498; 71045; 71275; 74177; 80053; 80061; 80074; 80307; 80320; 81001; 82803; 82962; 83036; 83690; 83735; 83880; 84145; 84484; 85025; 85610; 85730; 87081; 87086; 87088; 87186; 93005; 93306; 99152; 99153; 99285; C1725; C1769; J0696; J1200; J1644; J1650; J2003; J2250; J2405; J3010; J7030; J7040; J7120; Q9967

== ENCOUNTER → 2025-11-01 09:36 | Outpatient (RCR) | payer OTHER, SELFPAY | LOC: CR 09:36 | PROVIDERS: Visit Provider Internal Medicine Cardiovascular Disease | DX: I21.4 Non-ST elevation (NSTEMI) myocardial infarction (principal); I25.10 Atherosclerotic heart disease of native coronary artery without angina pectoris; Z98.61 Coronary angioplasty status ==